=== PATIENT | male | born 1975 | race Caucasian/White ===

== ENCOUNTER 2020-05-24 09:57 | Emergency (ER) | payer OTHER, MEDICAID, SELFPAY ==
[2020-05-24 10:09] VITALS: BP 123/65; PULSE 90; RESP 18; TEMP 37.2; O2SAT 99; BMI 29.6
[2020-05-24] MEDS: levoFLOXacin 750 MG TABLET PO (11:08)
--- NOTE | 2020-05-24 11:13 | ED.SKABFB ---
HPI - Skin/Abscess/Foreign Bdy General Chief complaint: Skin/Abscess/Foreign Body Stated complaint: earache and sore throat Time Seen by Provider: 05/24/20 10:45 History of Present Illness HPI narrative: Patient complains of pain in the left ear and the left side of the face just in front of the ear for 24 hours, along with redness to the area, no fever no chills no injury Related Data Previous Rx's Medication Instructions Recorded ciprofloxacin-hydrocortisone 3 drp OTIC (EARS) Q12H 7 Days ml 05/24/20 [Cipro HC] ibuprofen 600 mg PO Q6H PRN #20 tab 05/24/20 levofloxacin 500 mg PO DAILY 7 Days #7 tab 05/24/20 oxycodone-acetaminophen [Percocet] 1 tab PO Q6H PRN #14 tab 05/24/20 Allergies Allergy/AdvReac Type Severity Reaction Status Date / Time No Known Allergies Allergy Unverified 02/22/20 17:28 [No Known Allergies*] Review of Systems Review of Systems: No fever no chills no headache no chest pain no shortness of breath no cough no other rash, no nausea no vomiting Yes all other systems are reviewed and are negative [facility] Past Medical History Attestation statement: The following information was validated with the patient. Source: nursing notes reviewed Medical History (Updated 05/25/20 @ 00:00 by Background Daemon) Diabetes HTN (hypertension) Social History Social History Alcohol intake: current Alcohol intake frequency: holidays/special occasions only Smoking Status: Never smoker Use of substances other than those prescribed or required for medical reasons: No Advance Directives: No Advance Directives Information Provided: Yes Physical Exam Vital Signs: Vital Signs: Last Vital Signs Temp 99 F 05/24/20 10:09 Pulse 90 05/24/20 10:09 Resp 18 05/24/20 10:09 BP 123/65 05/24/20 10:09 Pulse Ox 99 05/24/20 10:09 Body Mass Index 29.6 Patient is A&O x3, comfortable, no acute distress relaxed and cooperative The head is normocephalic atraumatic pupils equal round react flight extraocular motions intact the ear exam the right ear is normal with no redness or narrow Rossi or swelling of the canal and tympanic membrane is not red and is intact The left ear is red and tender to the touch, there is pain with movement of the auricle, the left ear exam the canal is narrowed and red and the visible portion of the tympanic membrane was normal, there was a preauricular lymph node, there was some mild redness in the preauricular area, the mastoid was not tender not swollen not red and the rest of the facial exam was normal, swallowing and breathing was normal there was no swelling of the neck no swelling under the tongue, the voice was normal The pharynx was clear and normal with no redness no swelling Chest was clear to auscultation bilaterally with full equal symmetric breath sounds Extremities full range of motion times for skin no rashes neuro no focal deficits Course Course Course Narrative: Case was discussed with attending physician who saw the patient and agreed that outpatient treatment for otitis externa and left ear cellulitis was appropriate and patient is given clear warnings to return should redness spreads develop a fever, increased pain any worse condition or concerns Discharge Plan Discharge Clinical Impression: Cellulitis Patient Disposition: Home, Self-Care Additional Instructions: You have an infection of the skin around her ear and the ear canal so we are treating with both drops and antibiotic Levaquin Return to ER in 2-3 days for recheck Return to ER any time for spreading redness, fever, worse pain and swelling, any worse condition or any concerns Prescriptions: New levofloxacin 500 mg tablet 500 mg PO DAILY 7 Days Qty: 7 RF: 0 Cipro HC 0.2-1 % drops,suspension 3 drp otic (ears) Q12H 7 Days RF: 0 ibuprofen 600 mg tablet 600 mg PO Q6H PRN (Reason: pain) Qty: 20 RF: 0 oxycodone-acetaminophen [Percocet] 5-325 mg tablet 1 tab PO Q6H PRN (Reason: pain) Qty: 14 RF: 0 Stand Alone Forms: Work/School Release Interventions: ED Discharge Assessment Last Done: 05/24/20 11:12 Discharge Date/Time: 05/24/20 11:14
== END 2020-05-24 11:14 | disposition home or self-care (01) ==
PROVIDERS: Emergency Provider Emergency Medicine Emergency Medical Services; PCP Family Medicine
DX: L03.211 Cellulitis of face (principal); H92.02 Otalgia, left ear; E11.9 Type 2 diabetes mellitus without complications; I10 Essential (primary) hypertension
CPT/HCPCS: 99283; 99284

== ENCOUNTER → 2020-09-24 15:05 | Outpatient (BNVA) | payer OTHER, SELFPAY | PROVIDERS: PCP Family Medicine; Visit Provider Urology ==

== ENCOUNTER 2020-12-16 20:48 | Emergency (ER) | payer OTHER, SELFPAY ==
--- NOTE | ~2020-12-16 | XR_ITS ---
EXAMINATION: PORTABLE CHEST 1 VIEW CLINICAL INFORMATION: cp . COMPARISON: 10/01/2019. TECHNIQUE: Portable frontal view of the chest was obtained. FINDINGS: The lungs are well expanded. No focal infiltrate, effusion, edema, or pneumothorax. Cardiac and mediastinal silhouettes are within normal limits for technique. No acute bony abnormality seen. XR/XR chest 1V IMPRESSION: No evidence of acute disease.
[2020-12-16 21:02] VITALS: BP 133/89; PULSE 96; RESP 17; TEMP 36.3; O2SAT 99; BMI 29.6
[2020-12-16 23:48] LABS: MANUAL DIFF FLAG NO
[2020-12-16 23:49] LABS: Basophils Percent Auto 0.5 % (0-2); Eosinophils Absolute Auto 0.1 X10*3/uL (0.0-0.4); Eosinophils Percent Auto 1.4 % (0-4); Hematocrit 43.5 % (42-52); Hemoglobin 14.8 g/dl (14.0-18.0); Imm Gran Abs Auto 0.01 X10*3/uL (0.00-0.03); Imm Gran Pct Auto 0.2 % (0.0-0.4); Lymphocytes Absolute Auto 1.2 X10*3/uL (1.2-4.9); Lymphocytes Percent Auto 21.6 % (20-40); Mean Corpuscular Hemoglobin 30.2 pg (27.0-33.0); Mean Corpuscular Volume 88.8 fL (80-98); Mean Platelet Volume 10.3 fL (9.4-12.4); Monocytes Absolute Auto 0.5 X10*3/uL (0.1-1.2); Monocytes Percent Auto 9.1 % (2-11); Neutrophils Absolute Auto 3.8 X10*3/uL (2.0-8.3); Neutrophils Percent Auto 67.2 % (45-73); Platelet Count 168 X10*3/uL (160-400); Red Cell Distribution Width 13.4 % (11.0-16.0); White Blood Count 5.7 X10*3/uL (4.8-10.8)
--- NOTE | 2020-12-17 00:10 | ED_ITS ---
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 At this time patient feels much better patient denied any chest pain no shortness of breath Related Data Previous Rx's Medication Instructions Recorded ciprofloxacin-hydrocortisone 3 drp OTIC (EARS) Q12H 7 Days ml 05/24/20 [Cipro HC] ibuprofen 600 mg PO Q6H PRN #20 tab 05/24/20 levofloxacin 500 mg PO DAILY 7 Days #7 tab 05/24/20 oxycodone-acetaminophen [Percocet] 1 tab PO Q6H PRN #14 tab 05/24/20 tadalafil 5 mg tablet 5 mg PO DAILY PRN 90 Days #90 tab 09/24/20 Allergies Allergy/AdvReac Type Severity Reaction Status Date / Time No Known Allergies Allergy Verified 12/16/20 21:02 [No Known Allergies*] Review of Systems Review of Systems: Yes all other systems are reviewed and are negative [facility] Past Medical History Medical History Diabetes HTN (hypertension) Social History Social History Alcohol intake: current Alcohol intake frequency: holidays/special occasions only Advance Directives: No Advance Directives Information Provided: No Physical Exam Vital Signs: Vital Signs: Last Vital Signs Temp 97.4 F 12/16/20 21:02 Pulse 96 12/16/20 21:02 Resp 17 12/16/20 21:02 BP 133/89 12/16/20 21:02 Pulse Ox 99 12/16/20 21:02 Body Mass Index 29.6 Appearance: Alert. Oriented X3. No acute distress. Eyes: PERRLA, No Nystagmus ENT: Pharynx normal. Oral Mucosa moist Neck: Normal inspection. Neck supple. CVS: Normal heart rate and rhythm. Pulses normal. Respiratory: No respiratory distress. Equal air entry bilateral, no wheezing/rales/rhonchi Abdomen: Soft and nontender. Bowel sounds are present, no mass palpable, no CVA tenderness Skin: Skin warm and dry. Normal skin color. Normal skin turgor. Extremities: No lower extremity edema. No calf tenderness Neuro: Oriented X 3. No motor deficit. No sensory deficit.No cerebellar signs , cranial nerves II-XII intact Medical Decision Making Lab Data Lab results reviewed: Yes I reviewed the patient's lab results. Result diagrams: 12/16/20 23:40 12/16/20 23:40 Labs: Lab Results 12/16/20 12/16/20 12/16/20 Range/Units 23:40 23:40 23:40 WBC 5.7 (4.8-10.8) X10*3/uL RBC 4.90 (4.60-5.80) X10*6/uL Hgb 14.8 (14.0-18.0) g/dl Hct 43.5 (42-52) % MCV 88.8 (80-98) fL MCH 30.2 (27.0-33.0) pg MCHC 34.0 (31.0-36.0) g/dl RDW 13.4 (11.0-16.0) % Plt Count 168 (160-400) X10*3/uL MPV 10.3 (9.4-12.4) fL Immature Gran % (Auto) 0.2 (0.0-0.4) % Neut % (Auto) 67.2 (45-73) % Lymph % (Auto) 21.6 (20-40) % [place] % (Auto) 9.1 (2-11) % Eos % (Auto) 1.4 (0-4) % Baso % (Auto) 0.5 (0-2) % Lymph # (Auto) 1.2 (1.2-4.9) X10*3/uL [place] # (Auto) 0.5 (0.1-1.2) X10*3/uL Eos # (Auto) 0.1 (0.0-0.4) X10*3/uL Baso # (Auto) 0.0 (0.0-0.2) X10*3/uL Abs Immat Gran (auto) 0.01 (0.00-0.03) X10*3/uL Absolute Neuts (auto) 3.8 (2.0-8.3) X10*3/uL Absolute Nucleated RBC 0.000 (0.0-0.012) X10*3/uL Nucleated RBC % (auto) 0.0 (0.0-0.2) /100WBC Sodium 142 (135-145) mmol/L Potassium 4.2 (3.3-5.1) mmol/L Chloride 105 (96-108) mmol/L Carbon Dioxide 28 (22-29) mmol/L Anion Gap 13 (12-20) BUN 9 (9-16) mg/dL Creatinine 0.85 (0.5-1.4) mg/dL Estim Creat Clear Calc 118.6 Estimated GFR > 60 Random Glucose 104 (60-115) mg/dL Calcium 9.5 (8.4-10.2) mg/dL Troponin I High Sens < 3.5 (<3.5-35.0) ng/L Discharge Plan Discharge Clinical Impression: Vasovagal episode Patient Disposition: Home, Self-Care Instructions: Near Syncope (ED) Additional Instructions: You likely had vasovagal attack Drink plenty of fluids check blood pressure daily Follow with PCP Care and cautions as advised Prescriptions: No Action levofloxacin 500 mg tablet 500 mg PO DAILY 7 Days Qty: 7 RF: 0 Cipro HC 0.2-1 % drops,suspension 3 drp otic (ears) Q12H 7 Days RF: 0 ibuprofen 600 mg tablet 600 mg PO Q6H PRN (Reason: pain) Qty: 20 RF: 0 oxycodone-acetaminophen [Percocet] 5-325 mg tablet 1 tab PO Q6H PRN (Reason: pain) Qty: 14 RF: 0 tadalafil 5 mg tablet 5 mg PO DAILY PRN (Reason: sexual activity) 90 Days Qty: 90 RF: 1 Interventions: ED Discharge Assessment Last Done: 12/17/20 00:35 Discharge Date/Time: 12/17/20 00:38
[2020-12-17 00:12] LABS: Troponin-I High Sensitivity < 3.5 ng/L (<3.5-35.0)
[2020-12-17 00:14] LABS: Anion Gap 13 (12-20); Blood Urea Nitrogen 9 mg/dL (9-16); Calcium 9.5 mg/dL (8.4-10.2); Carbon Dioxide 28 mmol/L (22-29); Chloride 105 mmol/L (96-108); Creatinine Clr Calc Pharmacy 118.6; Estimated Glomerular Filt Rate > 60; Glucose Random 104 mg/dL (60-115); Potassium 4.2 mmol/L (3.3-5.1); Sodium 142 mmol/L (135-145)
== END 2020-12-17 00:38 | disposition home or self-care (01) ==
PROVIDERS: Emergency Provider Internal Medicine; PCP Family Medicine
DX: R55 Syncope and collapse (principal); E11.9 Type 2 diabetes mellitus without complications; I10 Essential (primary) hypertension; Z79.899 Other long term (current) drug therapy
CPT/HCPCS: 36415; 71045; 80048; 84484; 85025; 99283

== ENCOUNTER 2021-02-24 11:14 | Emergency (ER) | payer OTHER, MEDICAID, SELFPAY ==
--- NOTE | 2021-02-24 | ECG_ITS ---
Test Reason : CHEST PAIN Blood Pressure : / mmHG Vent. Rate : 092 BPM Atrial Rate : 092 BPM P-R Int : 150 ms QRS Dur : 090 ms QT Int : 348 ms P-R-T Axes : 039 -14 043 degrees QTc Int : 430 ms Normal sinus rhythm Normal ECG When compared with ECG of 01-OCT-2019 15:05, No significant change was found Referred By: Generic ED Physician Electronically Signed By:MISTY GARNER
[2021-02-24 11:31] VITALS: BP 120/65; PULSE 94; RESP 18; TEMP 36.7; O2SAT 99; BMI 29.6
--- NOTE | 2021-02-24 11:51 | ED.CHESTPAIN ---
HPI - Chest Pain General Chief Complaint: Chest Pain Stated Complaint: chest pain Time Seen by Provider: 02/24/21 11:51 Source: patient Mode of arrival: ambulatory Limitations: no limitations History of Present Illness HPI narrative: This is a 45-year-old male coming from home with complaint of an episode of chest pain that occurred this morning after eating breakfast. He states he was eating a ham and harvey sandwich and then experience 1 episode of centralized, nonradiating, stabbing 10/10 chest pain. He also states that at the same time he started experiencing warmth throughout his whole body, nausea, and a little bit of itching. He states that this commonly happens to him everytime he eats. He denies shortness of breath, foreign body sensation in his throat, fevers, chills, vomiting, recent sick contacts, abdominal pain, changes in bowel habits, skin rashes. He has no known allergies. MD complaint: chest pain Onset (ago): hour(s) (2) Prior episodes: Yes Onset: after eating Pain location: substernal Pain radiation: none Severity: mild Quality: other (Stabbing) Related Data Previous Rx's Medication Instructions Recorded ciprofloxacin 0.2 %-hydrocortisone 3 drp OTIC (EARS) Q12H 7 Days ml 05/24/20 1 % ear drops,suspension (Cipro HC) ibuprofen 600 mg tablet 600 mg PO Q6H PRN #20 tab 05/24/20 levofloxacin 500 mg tablet 500 mg PO DAILY 7 Days #7 tab 05/24/20 oxycodone-acetaminophen 5 mg-325 1 tab PO Q6H PRN #14 tab 05/24/20 mg tablet (Percocet) tadalafil 5 mg tablet 5 mg PO DAILY PRN 90 Days #90 tab 09/24/20 omeprazole 20 mg capsule,delayed 20 mg PO DAILY 30 Days #30 cap 02/24/21 release Allergies Allergy/AdvReac Type Severity Reaction Status Date / Time No Known Allergies Allergy Verified 12/16/20 21:02 [No Known Allergies*] Review of Systems Constitutional: Constitutional: Reports no additional constitutional complaints and Denies anorexia Cardiovascular: Cardiovascular: Reports as per HPI and Reports chest pain Respiratory: Respiratory: Reports no additional respiratory complaints and Denies cough Gastrointestinal: Gastrointestinal: Reports no additional gastrointestinal complaints, Denies abdominal pain, Denies change in bowel habits and Reports nausea Musculoskeletal: Musculoskeletal: Reports no additional musculoskeletal complaints Allergic/Immunologic: Allergic/Immunologic: Reports other Comments: Body feels warm, and itchy PMFSH Past Medical History Attestation statement: The following information was validated with the patient. Source: old records reviewed Medical History Diabetes HTN (hypertension) Social History Social History Alcohol intake: current Alcohol intake frequency: a few times a week Patient Tobacco Use Status: Never used Tobacco Use of substances other than those prescribed or required for medical reasons: No Advance Directives: No Advance Directives Information Provided: No Physical Exam Vital Signs: Vital Signs: Last Vital Signs Temp 98.1 F 02/24/21 11:31 Pulse 87 02/24/21 12:51 Resp 118 H 02/24/21 12:51 BP 125/72 02/24/21 12:51 Pulse Ox 99 02/24/21 12:51 Body Mass Index 29.6 Const: General: cooperative and no acute distress Orientation/consciousness: oriented to person and oriented to place Limitations: no limitations HENMT: Head: Yes normal to inspection, Yes normocephalic and Yes atraumatic Ears: external ears normal General nose exam: Normal external nose present Face and sinus: Yes normal facial exam Mouth: Normal oral and palatal mucosa present Throat: Yes posterior oropharynx normal Eyes: General: appearance normal, both eyes and all related structures Pupils: Equal, round and reactive pupils present Neck: Neck: Yes normal visual inspection, Yes no lymphadenopathy, Yes trachea midline and Yes supple Chest: Chest palpation & inspection: normal inspection of the chest and normal palpation of entire chest wall Resp: Effort & Inspection: normal respiratory effort and able to speak in complete sentences Auscultation: clear to auscultation bilaterally Cardio: Rate: regular rate Rhythm: regular rhythm Heart sounds: S1 normal heart sound present, S2 normal heart sound present and no murmurs GI: Inspection: Yes normal to inspection Palpation (GI): Soft to palpation, Tenderness to palpation present (GI) in the epigastrum and no guarding Auscultation: normal bowel sounds : General: Yes no CVA tenderness Back/Spine/Pelvis: Back: no CVA tenderness Skin: General skin exam: no rashes or lesions noted Neuro: General: oriented to person and oriented to place Cranial nerves: Yes CN's II-XII intact bilaterally and Yes Equal, round and reactive pupils present Cognition (Neuro): normal cognition Motor exam (neuro): 5/5 motor strength present throughout Extrem: General: Yes normal to inspection Psych: Appearance: grossly normal Speech and movement: Normal speech and movement present Affect: normal affect Attitude: cooperative Thought process: Normal thought process present Thought content: Normal thought content present Course Course Course Narrative: This is a 45-year-old male who presents emergency department with chest discomfort which started after breakfast this morning. He states that recently, after receiving his COVID-19 vaccination he has been experiencing short episodes of chest pain that last a few seconds in duration. He states that the chest pain is centralized, nonradiating and always occurs after eating. Upon further questioning he also states that he has been feeling burning in his epigastric region that accompanies this chest pain. He also reports that his body feels warm and itchy, which started after breakfast also. Basic labs, EKG, continuous cardiac monitoring, and 1 troponin have been ordered He will be given benadryl Reevaluation(s) Reevaluation #1: Leukopenia noted (4.0) which appears to be patient's baseline, when compared to old laboratory studies. Reevaluation #2: Patient is laying comfortably in the bed. Feeling much better. At this time based officer laboratory studies, EKG and patient history is most likely not cardiac in origin, most likely GERD/acid reflux/ esophageal spasm. Patient feels well. Stable for discharge home, with follow-up with his PCP. Will be started on Prilosec 20 mg from a month The patient was given verbal and printed instructions prior to discharge. The patient was advised to follow-up with his PCP in 2 days and to return to the emergency department if his symptoms get worse or if he develops any new symptoms that are concerning to him. MDM - Chest Pain Lab Data Result diagrams: 02/24/21 12:27 02/24/21 12:27 Labs: Lab Results 02/24/21 02/24/21 02/24/21 Range/Units 12:27 12:27 12:27 WBC 4.0 L (4.8-10.8) X10*3/uL RBC 4.59 L (4.60-5.80) X10*6/uL Hgb 13.9 L (14.0-18.0) g/dl Hct 41.3 L (42-52) % MCV 90.0 (80-98) fL MCH 30.3 (27.0-33.0) pg MCHC 33.7 (31.0-36.0) g/dl RDW 13.4 (11.0-16.0) % Plt Count 152 L (160-400) X10*3/uL MPV 10.6 (9.4-12.4) fL Immature Gran % (Auto) 0.3 (0.0-0.4) % Neut % (Auto) 58.3 (45-73) % Lymph % (Auto) 25.5 (20-40) % [place] % (Auto) 11.1 H (2-11) % Eos % (Auto) 4.3 H (0-4) % Baso % (Auto) 0.5 (0-2) % Lymph # (Auto) 1.0 L (1.2-4.9) X10*3/uL [place] # (Auto) 0.4 (0.1-1.2) X10*3/uL Eos # (Auto) 0.2 (0.0-0.4) X10*3/uL Baso # (Auto) 0.0 (0.0-0.2) X10*3/uL Abs Immat Gran (auto) 0.01 (0.00-0.03) X10*3/uL Absolute Neuts (auto) 2.3 (2.0-8.3) X10*3/uL Absolute Nucleated RBC 0.000 (0.0-0.012) X10*3/uL Nucleated RBC % (auto) 0.0 (0.0-0.2) /100WBC Sodium 142 (135-145) mmol/L Potassium 4.5 (3.3-5.1) mmol/L Chloride 107 (96-108) mmol/L Carbon Dioxide 30 H (22-29) mmol/L Anion Gap 10 L (12-20) BUN 12 (9-16) mg/dL Creatinine 0.87 (0.5-1.4) mg/dL Estim Creat Clear Calc 115.8 Estimated GFR > 60 Random Glucose 109 (60-115) mg/dL Calcium 8.9 D (8.4-10.2) mg/dL Total Bilirubin 0.3 (0.0-1.0) mg/dL AST 21 (5-37) U/L ALT 39 (0-40) U/L Alkaline Phosphatase 65 (39-117) U/L Troponin I High Sens < 3.5 (<3.5-35.0) ng/L Total Protein 6.2 L (6.5-8.0) g/dL Albumin 4.0 (3.5-5.0) g/dL ECG Data ECG #1: Attestation: I personally reviewed and interpreted this ECG as follows: ECG interpretation date: 02/24/21 ECG interpretation time: 12:58 Prior ECG tracings: available for review Interpretation: Ventricular rate of 92 HI interval normal QRS duration normal QT/QTC normal normal sinus rhythm normal ECG normal when compared to EKG from October 01, 2019. No significant changes. No signs of acute ischemia. Discharge Plan Discharge Clinical Impression: Chest pain due to GERD, Esophageal spasm Patient Disposition: Home, Self-Care Instructions: Esophageal Spasm (ED) Additional Instructions: Follow-up with your PCP in two days Take all medications as prescribed Return to the emergency department new or worsening symptoms. Prescriptions: New omeprazole 20 mg capsule,delayed release(DR/EC) 20 mg PO DAILY 30 Days Qty: 30 RF: 0 No Action levofloxacin 500 mg tablet 500 mg PO DAILY 7 Days Qty: 7 RF: 0 Cipro HC 0.2-1 % drops,suspension 3 drp otic (ears) Q12H 7 Days RF: 0 ibuprofen 600 mg tablet 600 mg PO Q6H PRN (Reason: pain) Qty: 20 RF: 0 oxycodone-acetaminophen [Percocet] 5-325 mg tablet 1 tab PO Q6H PRN (Reason: pain) Qty: 14 RF: 0 tadalafil 5 mg tablet 5 mg PO DAILY PRN (Reason: sexual activity) 90 Days Qty: 90 RF: 1 Referrals: Jojo Jaramillo MD [Primary Care Provider] - 2 days
[2021-02-24 12:35] VITALS: PULSE 86
[2021-02-24 12:41] LABS: MANUAL DIFF FLAG NO
[2021-02-24 12:42] LABS: Basophils Percent Auto 0.5 % (0-2); Eosinophils Absolute Auto 0.2 X10*3/uL (0.0-0.4); Eosinophils Percent Auto 4.3 % (0-4); Hematocrit 41.3 % (42-52); Hemoglobin 13.9 g/dl (14.0-18.0); Imm Gran Abs Auto 0.01 X10*3/uL (0.00-0.03); Imm Gran Pct Auto 0.3 % (0.0-0.4); Lymphocytes Percent Auto 25.5 % (20-40); Mean Corpuscular HGB Conc 33.7 g/dl (31.0-36.0); Mean Corpuscular Hemoglobin 30.3 pg (27.0-33.0); Mean Platelet Volume 10.6 fL (9.4-12.4); Monocytes Absolute Auto 0.4 X10*3/uL (0.1-1.2); Monocytes Percent Auto 11.1 % (2-11); Neutrophils Absolute Auto 2.3 X10*3/uL (2.0-8.3); Neutrophils Percent Auto 58.3 % (45-73); Platelet Count 152 X10*3/uL (160-400); Red Blood Count 4.59 X10*6/uL (4.60-5.80); Red Cell Distribution Width 13.4 % (11.0-16.0)
[2021-02-24] MEDS: diphenhydrAMINE HCL 25 MG TABLET 50 MG PO (12:50)
[2021-02-24 12:51] VITALS: BP 125/72; PULSE 87; RESP 118; O2SAT 99
[2021-02-24 12:57] LABS: Alanine Aminotransferase 39 U/L (0-40); Alkaline Phosphatase 65 U/L (39-117); Anion Gap 10 (12-20); Aspartate Amino Transferase 21 U/L (5-37); Bilirubin Total 0.3 mg/dL (0.0-1.0); Blood Urea Nitrogen 12 mg/dL (9-16); Calcium 8.9 mg/dL (8.4-10.2); Carbon Dioxide 30 mmol/L (22-29); Chloride 107 mmol/L (96-108); Creatinine Clr Calc Pharmacy 115.8; Estimated Glomerular Filt Rate > 60; Glucose Random 109 mg/dL (60-115); Potassium 4.5 mmol/L (3.3-5.1); Sodium 142 mmol/L (135-145); Total Protein 6.2 g/dL (6.5-8.0)
[2021-02-24 13:14] LABS: Troponin-I High Sensitivity < 3.5 ng/L (<3.5-35.0)
== END 2021-02-24 14:11 | disposition home or self-care (01) ==
PROVIDERS: Emergency Provider Emergency Medicine Emergency Medical Services; PCP Family Medicine
DX: R07.9 Chest pain, unspecified (principal); K21.9 Gastro-esophageal reflux disease without esophagitis; R25.2 Cramp and spasm; Z79.899 Other long term (current) drug therapy
CPT/HCPCS: 36415; 80053; 84484; 85025; 93005; 99284; Q0163

== ENCOUNTER → 2021-03-04 12:57 | Outpatient (BNVA) | payer OTHER, SELFPAY | PROVIDERS: Visit Provider Urology ==

== ENCOUNTER → 2022-01-30 07:16 | Day surgery (SDC) | payer OTHER, MEDICAID, SELFPAY ==
[2022-01-30 07:36] VITALS: BMI 31.9
[2022-01-30 07:45] VITALS: BP 113/72; PULSE 81; RESP 17; TEMP 36.2; O2SAT 96
[2022-01-30] MEDS: Lactated Ringers 1,000 ML 100 ML IVCONT (08:02)
[2022-01-30 08:03] VITALS: BMI 31.9
[2022-01-30 08:11] LABS: Glucose, Whole Blood 144 mg/dL (60-115)
[2022-01-30] MEDS: Metoclopramide HCl 10 MG/2 ML VIAL IVPUSH (08:24)
--- NOTE | 2022-01-30 08:51 | PC.NURSE ---
pt on schedule suddenly developed panic attack stating it's taking too long, ready to go into endo room. dr. francisco and dr. rankin reaching toward iv to take out, offered med for anxiety. refusing and wants to leave. iv out dsd applied, called, mike cabrera with pt until jason present. ambulated asymptomatic. no oozing at dsd.
== END ==
PROVIDERS: PCP Family Medicine; Visit Provider Internal Medicine
DX: Z12.11 Encounter for screening for malignant neoplasm of colon (principal); Z53.20 Procedure and treatment not carried out because of patient's decision for unspecified reasons; F41.0 Panic disorder [episodic paroxysmal anxiety]; I10 Essential (primary) hypertension; E11.9 Type 2 diabetes mellitus without complications; Z79.899 Other long term (current) drug therapy
CPT/HCPCS: 82947; J2765

== ENCOUNTER 2022-03-03 06:13 | Day surgery (SDC) | payer OTHER, MEDICAID, SELFPAY ==
[2022-02-26 09:35] VITALS: BMI 32.2
--- NOTE | 2022-03-02 12:35 | HO.ANESPROP2 ---
Documented by User: Cesilia Reece NP 03/02/22 12:38 HPI - Anesthesia Eval Consult details Narrative: 46yo M for Colonoscopy Pt previous cx'd self DOS in preop area d/t anxiety PMFSH Active Problems Active Problems: All Active Problems (Updated 02/26/22 @ 09:35 by Susie Santos, DAGOBERTO) Erectile dysfunction due to arterial insufficiency (Acute) Past Medical History Medical History Diabetes Elevated cholesterol HTN (hypertension) Surgical History Surgical History (Updated 02/26/22 @ 09:40 by Susei Santos RN) Hx of anterior cruciate ligament surgery Hx of cystoscopy Social History Social History Alcohol intake: current Alcohol intake frequency: a few times a week Patient Tobacco Use Status: Never used Tobacco Use of substances other than those prescribed or required for medical reasons: No Advance Directives: No Advance Directives Information Provided: Yes Recently lost weight without trying: No Meds Allergies Allergy/AdvReac Type Severity Reaction Status Date / Time No Known Allergies Allergy Verified 12/16/20 21:02 [No Known Allergies*] Home Medications Medication Instructions Recorded Confirmed Last Taken Type lisinopril 20 mg tablet 20 mg PO DAILY 01/30/22 02/26/22 01/30/22 History atorvastatin 40 mg tablet 40 mg PO BEDTIME 02/26/22 02/26/22 Unknown History celecoxib 100 mg capsule 1 - 2 cap PO DAILY PRN severe pain 02/26/22 02/26/22 Unknown History cyclobenzaprine 5 mg tablet 1 tab PO DAILY PRN Muscle Spasm 02/26/22 02/26/22 Unknown History hydroxyzine pamoate 25 mg capsule 25 mg PO BEDTIME 02/26/22 02/26/22 Unknown History pyridoxine (vitamin B6) 100 mg 100 mg PO DAILY 02/26/22 02/26/22 Unknown History tablet (Vitamin B-6) Exam Exam Date and Time: March 02, 2022 1235 Height,Weight and Vital Signs: Height 5 ft 8 in Weight 96.162 kg Assessment and Plan Assessment Anesthesia Assessment: Chart Reviewed Documented by User: Deonte Aragon MD 03/03/22 07:26 COUNTS INCLUDE 234 BEDS AT THE [facility] Past Medical History Medical History Diabetes Elevated cholesterol HTN (hypertension) Family History Family history of problems with anesthesia: No Surgical History Surgical History (Updated 02/26/22 @ 09:40 by Susie Santos RN) Hx of anterior cruciate ligament surgery Hx of cystoscopy History of Problems with Anesthesia: No Social History Social History Alcohol intake: current Alcohol intake frequency: a few times a week Patient Tobacco Use Status: Never used Tobacco Use of substances other than those prescribed or required for medical reasons: No Advance Directives: No Advance Directives Information Provided: Yes Recently lost weight without trying: No Meds Allergies Allergy/AdvReac Type Severity Reaction Status Date / Time No Known Allergies Allergy Verified 12/16/20 21:02 [No Known Allergies*] Home Medications Medication Instructions Recorded Confirmed Last Taken Type lisinopril 20 mg tablet 20 mg PO DAILY 01/30/22 02/26/22 01/30/22 History atorvastatin 40 mg tablet 40 mg PO BEDTIME 02/26/22 02/26/22 Unknown History celecoxib 100 mg capsule 1 - 2 cap PO DAILY PRN severe pain 02/26/22 02/26/22 Unknown History cyclobenzaprine 5 mg tablet 1 tab PO DAILY PRN Muscle Spasm 02/26/22 02/26/22 Unknown History hydroxyzine pamoate 25 mg capsule 25 mg PO BEDTIME 02/26/22 02/26/22 Unknown History pyridoxine (vitamin B6) 100 mg 100 mg PO DAILY 02/26/22 02/26/22 Unknown History tablet (Vitamin B-6) Exam Airway Mallampati Class: III TM Dist: >3cm Neck ROM: Full Partial: Upper Heart: rrr Lungs: clear Assessment and Plan Final Anesthetic Review Family History of Problems with Anesthesia: No History of Problems with Anesthesia: No NPO: Yes ASA Class: II Final Preanesthetic Review: No Changes in Pt Med Stat, Meds/Allgs Chart Reviewed, Consent Obtained/Reviewed and Anes Risks/Benef Reviewed Patient Risk: Intermediate Procedure Risk: Low Anesthetic Plan Anesthetic Plan: MAC: Disposition: Standard PACU
[2022-03-03 06:33] VITALS: BP 114/73; PULSE 75; RESP 16; TEMP 36.6; O2SAT 98; BMI 32.6
[2022-03-03] MEDS: Lactated Ringers 1,000 ML 100 ML IVCONT (06:49)
[2022-03-03 08:17] VITALS: BP 122/69; PULSE 82; TEMP 37.2; O2SAT 97
--- NOTE | 2022-03-03 08:22 | PM.OP ---
Brief Operative Note Date of Service: 03/03/22 Pre-op diagnosis: Screening Post-op diagnosis: other (Colon polyp) Procedure: Colonoscopy to the cecum and TI with hot snare polypectomy Surgeon: Tremayne Pandey Anesthesia: MAC Was an [employer] Excavation Operator used for this Procedure?: No Estimated blood loss (mL): 0 Pathology: other (A. Polyp at 20cm) Condition: stable Disposition: PACU
[2022-03-03 08:32] VITALS: BP 107/69; PULSE 28; TEMP 37.2; O2SAT 98
--- NOTE | 2022-03-03 10:39 | OP_ITS ---
SURGEON: Tremayne Pandey MD INDICATIONS: The patient presents for evaluation of colorectal cancer screening. Full consent has been obtained from him for this, including risks of bleeding and perforation. PREOPERATIVE DIAGNOSIS: Colorectal cancer screening. POSTOPERATIVE DIAGNOSIS: PROCEDURE PERFORMED: Colonoscopy to cecum and terminal ileum with hot snare polypectomy. ESTIMATED BLOOD LOSS: COMPLICATIONS: ANESTHESIA: Monitored anesthesia care. ASSISTANTS: SPECIMENS: POSTOPERATIVE DIAGNOSES: Colorectal cancer screening, colon polyp, and small internal hemorrhoids. DESCRIPTION OF PROCEDURE: The patient was placed in the left lateral decubitus position. The digital rectal exam revealed no abnormalities. The Olympus video pediatric colonoscope was entered into the rectum and advanced easily to the cecum. Once in the cecum, I did identify normal-appearing cecal pouch with appendiceal orifice and a normal-appearing ileocecal valve. The terminal ileum was cannulated and appeared normal. The scope was withdrawn back into the colon. The entire cecum and ileocecal valve appeared normal. The scope was slowly withdrawn assessing all mucosal surfaces carefully. Preparation was excellent. At 20 cm, there was an approximately 6 to 8 mm polyp, which was removed by hot snare polypectomy and recovered by suction. The polypectomy site appeared clean, without any sign of residual polyp nor bleeding. I did not visualize any other polyps, colitis, or angiodysplasia. In the rectum, scope was retroflexed visualizing some minimal internal hemorrhoids, but no other pathology. The rectal mucosa appeared normal. The scope was straightened out and withdrawn from the patient. He tolerated the procedure well and was returned to the recovery area in stable condition. IMPRESSION: 1. Small colon polyp, status post hot snare polypectomy. 2. Internal hemorrhoids. PLAN: The results of the pathology will be checked. If it is adenomatous I would recommend a repeat colonoscopy in 5 years for further surveillance. He was advised not to use any aspirin or NSAIDs for 1 week. MD HAI Valencia/BRAYDEN / [id number] JULITO
== END 2022-03-03 09:33 | disposition home or self-care (01) ==
PROVIDERS: PCP Family Medicine; Visit Provider Internal Medicine
PROC: 0DJD8ZZ Inspection of Lower Intestinal Tract, Via Natural or Artificial Opening Endoscopic (ICD-10-PCS; CPT 45378; principal; 2022-03-03 07:30)
DX: Z12.11 Encounter for screening for malignant neoplasm of colon (principal); K63.5 Polyp of colon; K64.8 Other hemorrhoids; E11.9 Type 2 diabetes mellitus without complications; I10 Essential (primary) hypertension; E78.5 Hyperlipidemia, unspecified; F41.1 Generalized anxiety disorder; Z79.899 Other long term (current) drug therapy
CPT/HCPCS: 45385; 88305

== ENCOUNTER 2022-03-15 18:45 | Emergency (ER) | payer OTHER, MEDICAID, SELFPAY ==
[2022-03-15 18:49] VITALS: BP 144/83; PULSE 92; RESP 20; TEMP 36; O2SAT 96; BMI 33.4
[2022-03-15 19:08] LABS: MANUAL DIFF FLAG NO
[2022-03-15 19:17] LABS: VBG Base Excess -0.8 mmol/L; VBG HCO3 22 mmol/L (22-26); VBG pCO2 34 mmHg; VBG pH 7.42 (7.32-7.43); VBG pO2 97 mmHg
[2022-03-15 19:17] LABS: Venous Blood Gas Refer to POC result
[2022-03-15 19:22] LABS: Basophils Percent Auto 0.7 % (0-2); Eosinophils Absolute Auto 0.1 X10*3/uL (0.0-0.4); Eosinophils Percent Auto 2.8 % (0-4); Hematocrit 43.5 % (42.0-52.0); Hemoglobin 14.7 g/dl (14.0-18.0); Imm Gran Abs Auto 0.01 X10*3/uL (0.00-0.03); Imm Gran Pct Auto 0.2 % (0.0-0.4); Lymphocytes Absolute Auto 0.9 X10*3/uL (1.2-4.9); Lymphocytes Percent Auto 20.4 % (20-40); Mean Corpuscular HGB Conc 33.8 g/dl (31.0-36.0); Mean Corpuscular Hemoglobin 29.2 pg (27.0-33.0); Mean Corpuscular Volume 86.3 fL (80.0-98.0); Mean Platelet Volume 10.7 fL (9.4-12.4); Monocytes Absolute Auto 0.5 X10*3/uL (0.1-1.2); Monocytes Percent Auto 11.2 % (2-11); Neutrophils Percent Auto 64.7 % (45-73); Platelet Count 159 X10*3/uL (160-400); Red Blood Count 5.04 X10*6/uL (4.60-5.80); Red Cell Distribution Width 12.8 % (11.0-16.0); White Blood Count 4.6 X10*3/uL (4.8-10.8)
[2022-03-15 19:31] LABS: Alanine Aminotransferase 52 U/L (0-40); Albumin Level 4.2 g/dL (3.5-5.0); Alkaline Phosphatase 60 U/L (39-117); Anion Gap 17 (12-20); Aspartate Amino Transferase 35 U/L (5-37); Bilirubin Total 0.5 mg/dL (0.0-1.0); Blood Urea Nitrogen 16 mg/dL (9-16); Calcium 9.1 mg/dL (8.4-10.2); Carbon Dioxide 20 mmol/L (22-29); Chloride 105 mmol/L (96-108); Creatinine Clr Calc Pharmacy 108.9; Estimated Glomerular Filt Rate > 60; Glucose Random 191 mg/dL (60-115); Potassium 4.5 mmol/L (3.3-5.1); Sodium 137 mmol/L (135-145); Total Protein 7.2 g/dL (6.5-8.0)
[2022-03-15 19:52] LABS: Acetone, serum QL Negative (Negative)
[2022-03-15 23:56] VITALS: BP 116/78; PULSE 76; RESP 18; TEMP 36.6; O2SAT 97
[2022-03-16 00:02] VITALS: BP 119/78; PULSE 80
--- NOTE | 2022-03-16 00:02 | ECG_ITS ---
Test Reason : DIZZINESS Blood Pressure : / mmHG Vent. Rate : 066 BPM Atrial Rate : 066 BPM P-R Int : 152 ms QRS Dur : 102 ms QT Int : 406 ms P-R-T Axes : 042 -16 019 degrees QTc Int : 425 ms Normal sinus rhythm Minimal voltage criteria for LVH, may be normal variant ( R in aVL ) Intra-ventricular conduction delay Borderline ECG When compared with ECG of 24-FEB-2021 11:22, Heart rate has decreased Referred By: Liza Dalton Electronically Signed By:EHSAN BILL MD
[2022-03-16 00:03] VITALS: BP 121/71; PULSE 68
--- OUTSIDE RECORDS SUMMARY | 2022-03-16 00:10 | XMS_ITS ---
:1975 Demographics Address [address] [place] [address] Preferred Language Norwegian Marital Status Unknown Nondenominational Affiliation Unknown Race or [place] Na t[employer] Ethnic Group or Author Organization [facility] Address [address] [place] [address] Support Name Relationship Address Phone MATT SOL Unavailable [address] [phone] [place] [address] MAE BECERRA Unavailable Unavailable [phone] Care Team Providers Name Role Phone Tremayne Pandey Unavailable Unavailable PROBLEMS Type Condition ICD9-CM Code QSE05-SV Code Onset Condition SNO MED Code Dates Status Problem Encounter for Z01.818 Active 302048 001 other preprocedural examination Problem Encounter for Z12.11 Active [id number] screening for malignant neoplasm of colon ALLERGIES No Known Allergies ENCOUNTERS Encounter Location Date Diagnosis [facility] Outpatient [address] [facility] Feb, [place] [id number] [address] Jan, [facility] [address] [place] [address] Nov, [facility] [address] [place] [address] Nov, Encounte r for screening [facility] [address] [place], [place] [address] colon Z12.11 and Encounter for other prepro cedural examination Z01. 818 IMMUNIZATIONS Vaccine Route Administration Date Status Influenza Unknown Feb 05, 2021 Administered SOCIAL HISTORY Qualifiers Date Never Smoker REASON FOR REFERRAL FUNCTIONAL STATUS PLAN OF CARE Activity Details Pending Test Pathology Future/Pending Procedure COLONOSCOPY 20211203 VITAL SIGNS Weight 212 lbs 2021-12-03 Height 68 in 2021-12-03 BMI 32.23 kg/m2 2021-12-03 Temperature 97.7 degrees Fahrenheit 2021-12-03 MEDICATIONS Medication Instructions Dosage Frequency Start End Duration Statu s Date Date Triamcinolone 14 Active Acetonide 0.1 % MiraLax (colon Orally begin at 1 238 Gm Nov, 1 day Active prep) 17 GM/SCOOP 5:00 p.m. the bottle 2021 before the mixed with procedure Gatorade or Crystal Light Cyclobenzaprine 30 Active HCl 5 MG Escitalopram TAKE 1 30 Not-Taki Oxalate 10 MG TABLET BY ng MOUTH EVERY DAY Atorvastatin Orally Once a 1 tablet 24h 30 day(s) Ac tive Calcium 40 MG day Omeprazole 20 MG 30 Not-Brian i ng Celecoxib 100 MG 30 Active Dulcolax (colon Orally two take at Nov, 1 day Activ e prep) 5 MG tablets twice a 3:00 p.m 2021 day for one day and 7:00p.m. Vitamin B6 100 MG Orally Once a 1 tablet 24h 30 day( s) Active day Mometasone Furoate APPLY A 30 Activ e 0.1 % THIN LAYER TO AFFECTED AREA(S) EVERY DAY DIRECTED Lisinopril 10 MG 30 Active hydrOXYzine HCl 25 Orally Once a 1 tablet at 24h 30 day(s) Active MG day bedtime as needed PROCEDURES Procedure Date Ordered Result Body Site BP SCR NOT PRFRM REC REASON NOS December 03, 2021 TOBACCO NON-USER December 03, 2021 DOC MEDS VERIFIED W/PT OR RE December 03, 2021 RESULTS Name Result Date Reference Range Glucose, Whole Blood 2022-01-30 Glucose, Whole Blood 144 60-115 REASON FOR VISIT screening, screening, bowel prep, Patient presents today for a SCREENING COLON Insurance Providers [facility] Member Patient Patient Patient Patient Patient Subscriber Subscriber Subscriber Group Insurance Plan Plan Plan Plan ID Relationship Address Phone Name Date of ID Name Date of No Type Insurance Insurance Insurance Coverage to Subscriber Address Phone Name Dates HEALTH NEW ONE [phone] HEALTH NEW self MATT [id number] ANNALISA MONARCH [address] [facility] [address] MEDICAID [id number] MEDICAID self MATT 6 [id number] OF [place] [id number] [place] [address] [facility] [address]
--- NOTE | 2022-03-16 00:11 | ED_ITS ---
HPI - General Adult General Chief complaint: Recheck/Abnormal Lab/Rx Stated complaint: blood sugar high Time Seen by Provider: 03/15/22 23:58 Source: patient Mode of arrival: ambulatory Limitations: no limitations History of Present Illness HPI narrative: Patient comes to the emergency room complaining that when he eats he gets lightheaded, needs to lower himself to the ground to avoid passing out. Patient states it has been going on for several days. Patient stop taking metformin because he lost weight and his PCP asked him not to take metformin anymore. Patient states that he has been checking his blood sugars and it has been above 200 every time he checks it. Patient denies chest pain or shortness of breath, no nausea vomiting or diarrhea. Related Data Home Medications Medication Instructions Recorded Confirmed lisinopril 20 mg tablet 20 mg PO DAILY 01/30/22 02/26/22 atorvastatin 40 mg tablet 40 mg PO BEDTIME 02/26/22 02/26/22 celecoxib 100 mg capsule 1 - 2 cap PO DAILY PRN severe pain 02/26/22 02/26/22 cyclobenzaprine 5 mg tablet 1 tab PO DAILY PRN Muscle Spasm 02/26/22 02/26/22 hydroxyzine pamoate 25 mg capsule 25 mg PO BEDTIME 02/26/22 02/26/22 pyridoxine (vitamin B6) 100 mg 100 mg PO DAILY 02/26/22 02/26/22 tablet (Vitamin B-6) Previous Rx's Medication Instructions Recorded tadalafil 5 mg tablet 5 mg PO DAILY PRN sexual activity 03/04/21 90 days #90 tabs metformin 500 mg tablet,extended 500 mg PO DAILY #30 tabs 03/16/22 release 24 hr Allergies Allergy/AdvReac Type Severity Reaction Status Date / Time No Known Allergies Allergy Verified 12/16/20 21:02 [No Known Allergies*] Review of Systems Review of Systems: Constitutional : No Weight loss, No Fever, No Chills, no fatigue or generalized malaise ENT/Mouth : No Hearing loss, No Ear Pain, No Nasal Congestion, No Sinus Pain, No Hoarseness, No sore throat, No Rhinorrhea, No Swallowing Difficulty Eyes: No Eye Pain, No Swelling, No Redness, No Foreign Body, No Discharge, No Vision Changes Cardiovascular : No Chest Pain, No SOB, No Dyspnea on Exertion, No Orthopnea, No Edema, No Palpitations Respiratory : No Cough, No Sputum, No Wheezing, No Smoke Exposure, No Dyspnea Gastrointestinal : No Nausea, No Vomiting, No Diarrhea, No Constipation, No abdominal Pain, No Hematochezia, No Melena Genitourinary : no irregular bleeding, No Dysuria, No Urinary Frequency, No Hematuria, No Urinary Incontinence, No Urgency, No Flank Pain, No Urinary Flow Changes, No Hesitancy Musculoskeletal : No joint pain, No Myalgias, No Joint Swelling Skin : No Skin Lesions, No rash Neuro : No Weakness, No Numbness, No Paresthesias, No Loss of Consciousness, no headache, complaining of lightheadedness after eating Psych : No Anxiety/Panic, No Depression, No SI/HI/AH/VH, No Social Issues, Heme/Lymph: No Bruising, No Bleeding,No Lymphadenopathy Endocrine : No Polyuria, No Polydipsia, No Temperature Intolerance PMFSH Past Medical History Medical History Diabetes Elevated cholesterol HTN (hypertension) Surgical History Hx of anterior cruciate ligament surgery Hx of cystoscopy Social History Social History Alcohol intake: current Alcohol intake frequency: a few times a week Patient Tobacco Use Status: Never used Tobacco Advance Directives: No Advance Directives Information Provided: No Physical Exam ED Vital Signs: Vital Signs - 24 hr 03/15/22 18:49 03/15/22 23:56 03/16/22 00:20 Temperature 96.8 F 97.9 F Pulse Rate 92 76 80 Respiratory Rate 20 18 16 Blood Pressure 144/83 H 116/78 119/78 Pulse Oximetry 96 97 95 Oxygen Delivery Method Room Air Room Air Room Air 03/16/22 00:20 03/16/22 00:03 03/16/22 00:02 Temperature Pulse Rate 72 68 80 Respiratory Rate Blood Pressure 124/69 121/71 119/78 Pulse Oximetry Oxygen Delivery Method BMI result Body Mass Index 33.4 Const Other: Appearance: Alert. Oriented X3. No acute distress. Eyes: Pupils equal, round and reactive to light. ENT: Pharynx normal. Neck: Normal inspection. Neck supple. No lymph nodes noted. No crepitus CVS: Normal heart rate and rhythm. Pulses normal. Normal S1 and S2 Respiratory: No respiratory distress. Breath sounds normal. No Wheezing. No rales Abdomen: Soft and nontender. No rigidity. No distention. Skin: Skin warm and dry. Normal skin color. Normal skin turgor. Extremities: No lower extremity edema. No Lacerations. No Rash Neuro: Oriented X 3. No motor deficit. No sensory deficit. Moving all extremities. No slurred speech. CN 2 through 12 grossly intact Psych: calm, cooperative, normal affect Course Course Course Narrative: Although patient has not had any abdominal surgery, patient has dumping syndrome like symptoms Patient's labs are unremarkable, blood sugar a bit elevated, 191 EKGs normal, t roponin is negative. Orthostatic vitals are negative. Patient instructed to eat more smaller frequent meals. If this does not work. Patient may need to have a follow-up with Cardiology, have a stress test and or a Holter monitor Medical Decision Making Lab Data Result diagrams: 03/15/22 19:02 03/15/22 19:02 Labs: Lab Results 03/15/22 03/15/22 03/15/22 Range/Units 19:02 19:02 19:02 WBC 4.6 L (4.8-10.8) X10*3/uL RBC 5.04 (4.60-5.80) X10*6/uL Hgb 14.7 (14.0-18.0) g/dl Hct 43.5 (42.0-52.0) % MCV 86.3 (80.0-98.0) fL MCH 29.2 (27.0-33.0) pg MCHC 33.8 (31.0-36.0) g/dl RDW 12.8 (11.0-16.0) % Plt Count 159 L (160-400) X10*3/uL MPV 10.7 (9.4-12.4) fL Immature Gran % (Auto) 0.2 (0.0-0.4) % Neut % (Auto) 64.7 (45-73) % Lymph % (Auto) 20.4 (20-40) % [place] % (Auto) 11.2 H (2-11) % Eos % (Auto) 2.8 (0-4) % Baso % (Auto) 0.7 (0-2) % Lymph # (Auto) 0.9 L (1.2-4.9) X10*3/uL [place] # (Auto) 0.5 (0.1-1.2) X10*3/uL Eos # (Auto) 0.1 (0.0-0.4) X10*3/uL Baso # (Auto) 0.0 (0.0-0.2) X10*3/uL Abs Immat Gran (auto) 0.01 (0.00-0.03) X10*3/uL Absolute Neuts (auto) 3.0 (2.0-8.3) x10*3/uL Absolute Nucleated RBC 0.000 (0.0-0.012) X10*3/uL Nucleated RBC % (auto) 0.0 (0.0-0.2) /100WBC VBG pH (7.32-7.43) VBG pCO2 mmHg VBG pO2 mmHg VBG HCO3 (22-26) mmol/L VBG O2 Saturation % VBG Base Excess mmol/L Sodium 137 (135-145) mmol/L Potassium 4.5 (3.3-5.1) mmol/L Chloride 105 (96-108) mmol/L Carbon Dioxide 20 L (22-29) mmol/L Anion Gap 17 (12-20) BUN 16 (9-16) mg/dL Creatinine 0.97 (0.5-1.4) mg/dL Estim Creat Clear Calc 108.9 Estimated GFR > 60 Random Glucose 191 H D (60-115) mg/dL Calcium 9.1 (8.4-10.2) mg/dL Total Bilirubin 0.5 (0.0-1.0) mg/dL AST 35 D (5-37) U/L ALT 52 H (0-40) U/L Alkaline Phosphatase 60 (39-117) U/L Troponin I High Sens (<3.5-35.0) ng/L Total Protein 7.2 (6.5-8.0) g/dL Albumin 4.2 (3.5-5.0) g/dL Acetone, Qual Negative (Negative) 03/15/22 03/16/22 Range/Units 19:11 19:02 WBC (4.8-10.8) X10*3/uL RBC (4.60-5.80) X10*6/uL Hgb (14.0-18.0) g/dl Hct (42.0-52.0) % MCV (80.0-98.0) fL MCH (27.0-33.0) pg MCHC (31.0-36.0) g/dl RDW (11.0-16.0) % Plt Count (160-400) X10*3/uL MPV (9.4-12.4) fL Immature Gran % (Auto) (0.0-0.4) % Neut % (Auto) (45-73) % Lymph % (Auto) (20-40) % [place] % (Auto) (2-11) % Eos % (Auto) (0-4) % Baso % (Auto) (0-2) % Lymph # (Auto) (1.2-4.9) X10*3/uL [place] # (Auto) (0.1-1.2) X10*3/uL Eos # (Auto) (0.0-0.4) X10*3/uL Baso # (Auto) (0.0-0.2) X10*3/uL Abs Immat Gran (auto) (0.00-0.03) X10*3/uL Absolute Neuts (auto) (2.0-8.3) x10*3/uL Absolute Nucleated RBC (0.0-0.012) X10*3/uL Nucleated RBC % (auto) (0.0-0.2) /100WBC VBG pH 7.42 (7.32-7.43) VBG pCO2 34 mmHg VBG pO2 97 mmHg VBG HCO3 22 (22-26) mmol/L VBG O2 Saturation 99.0 % VBG Base Excess -0.8 mmol/L Sodium (135-145) mmol/L Potassium (3.3-5.1) mmol/L Chloride (96-108) mmol/L Carbon Dioxide (22-29) mmol/L Anion Gap (12-20) BUN (9-16) mg/dL Creatinine (0.5-1.4) mg/dL Estim Creat Clear Calc Estimated GFR Random Glucose (60-115) mg/dL Calcium (8.4-10.2) mg/dL Total Bilirubin (0.0-1.0) mg/dL AST (5-37) U/L ALT (0-40) U/L Alkaline Phosphatase (39-117) U/L Troponin I High Sens < 3.5 (<3.5-35.0) ng/L Total Protein (6.5-8.0) g/dL Albumin (3.5-5.0) g/dL Acetone, Qual (Negative) Discharge Plan Discharge Clinical Impression: Near syncope Patient Disposition: Home, Self-Care Instructions: Near Syncope (ED) Additional Instructions: Please eat more frequent small meals. Please follow-up with your primary care physician tomorrow. If you have any worsening or new symptoms, please return to the emergency room or call 911 Prescriptions: New metformin 500 mg tablet extended release 24 hr 500 mg PO DAILY Qty: 30 1RF No Action lisinopril 20 mg tablet 20 mg PO DAILY atorvastatin 40 mg Tablet 40 mg PO BEDTIME pyridoxine (vitamin B6) [Vitamin B-6] 100 mg Tablet 100 mg PO DAILY celecoxib 100 mg capsule 1 - 2 cap PO DAILY PRN (Reason: severe pain) hydroxyzine pamoate 25 mg Capsule 25 mg PO BEDTIME cyclobenzaprine 5 mg tablet 1 tab PO DAILY PRN (Reason: Muscle Spasm) tadalafil 5 mg tablet 5 mg PO DAILY PRN (Reason: sexual activity) 90 Days Qty: 90 1RF
[2022-03-16 00:20] VITALS: BP 119/78; BP 124/69; PULSE 72; PULSE 80; RESP 16; O2SAT 95
[2022-03-16 00:37] LABS: Troponin-I High Sensitivity < 3.5 ng/L (<3.5-35.0)
[2022-03-16 01:29] VITALS: BP 119/67; PULSE 68; RESP 16; TEMP 36.8; O2SAT 96
== END 2022-03-16 01:34 | disposition home or self-care (01) ==
PROVIDERS: Emergency Provider Emergency Medicine; PCP Family Medicine
DX: R55 Syncope and collapse (principal); E11.9 Type 2 diabetes mellitus without complications; I10 Essential (primary) hypertension; E78.5 Hyperlipidemia, unspecified; Z79.899 Other long term (current) drug therapy; Z79.02 Long term (current) use of antithrombotics/antiplatelets
CPT/HCPCS: 36415; 80053; 82009; 82803; 84484; 85025; 93005; 99283; 99284

== ENCOUNTER 2022-07-07 08:26 | Outpatient (REF) | payer OTHER, MEDICAID, SELFPAY ==
--- NOTE | ~2022-07-07 | US_ITS ---
EXAMINATION: US ABDOMEN COMPLETE CLINICAL INFORMATION: Right upper quadrant pain. COMPARISON: Renal ultrasound 08/28/2019 and 02/27/2019. CT abdomen and pelvis 12/15/2018. TECHNIQUE: Real-time imaging of the abdominal viscera. FINDINGS: PANCREAS: Normal. ABDOMINAL AORTA: The proximal, mid, and distal segments are normal in caliber. INFERIOR VENA CAVA: Visualized portions are normal. LIVER: The liver is normal in size. The liver contour is normal. Parenchymal echogenicity is normal. A small benign, calcified granuloma is seen within the right hepatic lobe, consistent with prior CT findings (2:15). There is no intrahepatic biliary duct dilatation seen. GALLBLADDER: Normal. The gallbladder is physiologically distended without evidence of stones, sludge, polyps, wall thickening or pericholecystic fluid. COMMON BILE DUCT: Normal in caliber measuring 0.2 cm in diameter. RIGHT KIDNEY: Normal. No hydronephrosis. No renal calculi or focal parenchymal lesions. The kidney measures 11.1 cm in maximum dimension. LEFT KIDNEY: Normal. No hydronephrosis. No renal calculi or focal parenchymal lesions. The kidney measures 11.5 cm in maximum dimension. SPLEEN: Normal. The spleen measures 12.8 cm in maximum dimension. FREE FLUID: None. US/US abdomen complete IMPRESSION: Unremarkable examination.
== END 2022-07-07 08:27 | disposition home or self-care (01) ==
LOC: HO.US 08:26
PROVIDERS: PCP Family Medicine; Visit Provider Internal Medicine
DX: R10.13 Epigastric pain (principal); R10.11 Right upper quadrant pain
CPT/HCPCS: 76700

== ENCOUNTER 2022-07-20 10:25 | Day surgery (SDC) | payer OTHER, MEDICAID, SELFPAY ==
--- NOTE | 2022-07-20 10:31 | HO.ANESPROP2 ---
HPI - Anesthesia Eval Consult details Narrative: egd PMFSH Active Problems Active Problems: All Active Problems (Updated 07/17/22 @ 12:33 by Cuca Amor RN) Erectile dysfunction due to arterial insufficiency (Acute) Past Medical History Medical History (Updated 07/17/22 @ 12:33 by Cuca Amor RN) Anxiety Back pain Diabetes Elevated cholesterol HTN (hypertension) Family History Family history of problems with anesthesia: No Surgical History Surgical History (Updated 07/17/22 @ 12:32 by Cuca Amor RN) H/O colonoscopy Hx of anterior cruciate ligament surgery Hx of cystoscopy History of Problems with Anesthesia: No Social History Social History Alcohol intake: current Alcohol intake frequency: a few times a week Patient Tobacco Use Status: Never used Tobacco Advance Directives: No Advance Directives Information Provided: Yes Meds Allergies Allergy/AdvReac Type Severity Reaction Status Date / Time No Known Allergies Allergy Verified 12/16/20 21:02 [No Known Allergies*] Home Medications Medication Instructions Recorded Confirmed Last Taken Type lisinopril 20 mg tablet 20 mg PO DAILY 01/30/22 02/26/22 01/30/22 History atorvastatin 40 mg tablet 40 mg PO BEDTIME 02/26/22 02/26/22 Unknown History celecoxib 100 mg capsule 1 - 2 cap PO DAILY PRN severe pain 02/26/22 02/26/22 Unknown History cyclobenzaprine 5 mg tablet 1 tab PO DAILY PRN Muscle Spasm 02/26/22 02/26/22 Unknown History hydroxyzine pamoate 25 mg capsule 25 mg PO BEDTIME 02/26/22 02/26/22 Unknown History pyridoxine (vitamin B6) 100 mg 100 mg PO DAILY 02/26/22 02/26/22 Unknown History tablet (Vitamin B-6) Exam Exam Date and Time: July 20, 2022 1031 Airway TM Dist: >3cm Neck ROM: Full Heart: rrr Lungs: cta Assessment and Plan Assessment Anesthesia Assessment: Anesthesia Plan Discussed and Chart Reviewed Final Anesthetic Review Family History of Problems with Anesthesia: No History of Problems with Anesthesia: No NPO: Yes ASA Class: III Final Preanesthetic Review: No Changes in Pt Med Stat, Meds/Allgs Chart Reviewed, Consent Obtained/Reviewed and Anes Risks/Benef Reviewed Patient Risk: Intermediate Procedure Risk: Low Anesthetic Plan Anesthetic Plan: MAC: Disposition: Standard PACU
[2022-07-20 10:43] VITALS: BMI 34.4
[2022-07-20 10:50] VITALS: BP 118/74; PULSE 78; RESP 18; TEMP 36.8; O2SAT 99
[2022-07-20 11:01] LABS: Glucose, Whole Blood 129 mg/dL (60-115)
[2022-07-20 11:32] VITALS: BP 130/82; PULSE 88; RESP 16; TEMP 37.3; O2SAT 95
--- NOTE | 2022-07-20 11:34 | PM.OP ---
Brief Operative Note Date of Service: 07/20/22 Pre-op diagnosis: GERD, Abdominal pain Post-op diagnosis: other (Gastritis, Hiatal hernia) Procedure: EGD with biopsies Surgeon: Tremayne Pandey Anesthesia: MAC Was an [facility] used for this Procedure?: No Estimated blood loss (mL): 2.0 Pathology: other (A. Gastric antrum) Condition: stable Disposition: PACU
[2022-07-20 11:47] VITALS: BP 131/79; PULSE 79; RESP 18; TEMP 37.3; O2SAT 96
--- NOTE | 2022-07-20 16:19 | OP_ITS ---
SURGEON: Tremayne Padney MD INDICATIONS: The patient presents for evaluation of abdominal pain and reflux. Full consent has been obtained from him for this, including risks of bleeding and perforation. PREOPERATIVE DIAGNOSIS: POSTOPERATIVE DIAGNOSIS: PROCEDURE PERFORMED: Esophagogastroduodenoscopy with biopsies. ESTIMATED BLOOD LOSS: COMPLICATIONS: ANESTHESIA: Monitored anesthesia care. ASSISTANTS: SPECIMENS: PREOPERATIVE DIAGNOSES: Abdominal pain and reflux. POSTOPERATIVE DIAGNOSES: Abdominal pain and reflux. Mild gastritis. Small hiatal hernia. DESCRIPTION OF PROCEDURE: The patient was placed in the left lateral decubitus position. The Olympus video gastroscope was passed in the posterior oropharynx and upper esophagus under direct vision. The scope was passed slowly to the distal esophagus. The gastroesophageal junction appeared normal at 35 cm. There was no sign of any esophagitis nor Ruiz's mucosa. There was a small hiatal hernia. The scope was advanced to pylorus and the duodenum was cannulated to the descending portion. The duodenum including the bulb appeared normal without mass or ulceration. The scope was withdrawn back to the stomach. The gastric antrum and body had some scattered areas of erythema and less than 5 mm erosions. There was good peristalsis. There was no mass or ulceration. Biopsies were obtained from the antrum. The scope was retroflexed visualizing the proximal stomach carefully, which appeared normal, without any sign of mass or ulceration. The scope was straightened and withdrawn back to the esophagus. The esophageal mucosa appeared normal. The scope was withdrawn from the patient. He tolerated the procedure well and returned to recovery area in stable condition. IMPRESSION: 1. Mild gastritis. 2. Small hiatal hernia. PLAN: The results of the biopsies will be checked. I will give him a prescription to use omeprazole for his upper GI complaints of the abdominal pain and reflux. A recent abdominal ultrasound was negative for gallstones nor any other pathology. He will see me for a followup office visit as well. MD HAI Valencia/BRAYDEN / [id number] MTDD
== END 2022-07-20 12:28 | disposition home or self-care (01) ==
PROVIDERS: PCP Family Medicine; Visit Provider Internal Medicine
PROC: 0DJ08ZZ Inspection of Upper Intestinal Tract, Via Natural or Artificial Opening Endoscopic (ICD-10-PCS; CPT 43235; principal; 2022-07-20 11:30)
DX: K29.50 Unspecified chronic gastritis without bleeding (principal); K21.9 Gastro-esophageal reflux disease without esophagitis; K44.9 Diaphragmatic hernia without obstruction or gangrene; I10 Essential (primary) hypertension; E78.5 Hyperlipidemia, unspecified; E11.9 Type 2 diabetes mellitus without complications; Z79.84 Long term (current) use of oral hypoglycemic drugs; Z79.899 Other long term (current) drug therapy
CPT/HCPCS: 43239; 82947; 88305; 88342

== ENCOUNTER 2022-11-06 07:28 | Outpatient (REF) | payer OTHER, MEDICAID, SELFPAY ==
--- NOTE | ~2022-11-06 | XR_ITS ---
Examination: Right knee CLINICAL INFORMATION: Pain TECHNIQUE: AP, lateral, sunrise view on the right and bilateral weightbearing view of the knees. COMPARISON: 08/31/2013 FINDINGS:There is mild narrowing of the medial compartment of both knee joints on the weightbearing view. On the right there is spurring of the lateral tibial plateau and minimal spurring of patella. There is small joint effusion. There is patellar enthesopathy. XR/XR knee RT 2V IMPRESSION: Mild degenerative changes in the right knee joint and small joint effusion.
--- NOTE | ~2022-11-06 | XR_ITS ---
Examination: Right knee CLINICAL INFORMATION: Pain TECHNIQUE: AP, lateral, sunrise view on the right and bilateral weightbearing view of the knees. COMPARISON: 08/31/2013 FINDINGS:There is mild narrowing of the medial compartment of both knee joints on the weightbearing view. On the right there is spurring of the lateral tibial plateau and minimal spurring of patella. There is small joint effusion. There is patellar enthesopathy. XR/XR knee standing BI IMPRESSION: Mild degenerative changes in the right knee joint and small joint effusion.
== END 2022-11-06 07:29 | disposition home or self-care (01) ==
LOC: HO.HOSX 07:28
PROVIDERS: Visit Provider Physician Assistant
DX: M17.11 Unilateral primary osteoarthritis, right knee (principal); M25.562 Pain in left knee
CPT/HCPCS: 73560; 73565

== ENCOUNTER 2023-08-24 18:43 | Emergency (ER) | payer OTHER, SELFPAY ==
[2023-08-24 19:23] VITALS: BP 146/84; PULSE 91; RESP 18; TEMP 36.8; O2SAT 97; BMI 30.4
--- NOTE | 2023-08-24 19:28 | ED.MALEGU ---
HPI - Male Genitourinary General Chief complaint: Urogenital-Male Stated complaint: jock itch Time Seen by Provider: 08/25/23 00:02 Source: patient, RN notes reviewed and old records reviewed Mode of arrival: ambulatory Limitations: no limitations History of Present Illness HPI Narrative: 47-year-old male presents for evaluation of ?rash on my scrotum. ? Patient has had a long history of dermatologic issues He reports for last 3 years he has had on and off ?jock itch. ? He also has psoriasis and therefore follows with dermatology He reports he was given a new rash alclometasone which he used for the 1st time a couple of days ago. Patient states that his rash got worse and he was scratching vigorously over the last 2 days He developed some blisters to the scrotum on the left side that have been weeping intermittently There is no rash on his pain is Related Data Home Medications Medication Instructions Recorded Confirmed lisinopril 20 mg tablet 20 mg PO DAILY 01/30/22 02/26/22 cyclobenzaprine 5 mg tablet 1 tab PO DAILY PRN Muscle Spasm 02/26/22 02/26/22 hydroxyzine pamoate 25 mg capsule 25 mg PO BEDTIME 02/26/22 02/26/22 pyridoxine (vitamin B6) 100 mg 100 mg PO DAILY 02/26/22 02/26/22 tablet (Vitamin B-6) escitalopram oxalate 5 mg tablet 5 mg PO DAILY 11/06/22 lorazepam 0.5 mg tablet 0.5 mg PO BID PRN 11/06/22 trazodone 50 mg tablet 50 mg PO BEDTIME PRN insomnia 11/06/22 Previous Rx's Medication Instructions Recorded tadalafil 5 mg tablet 5 mg PO DAILY PRN sexual activity 03/04/21 90 days #90 tabs metformin 500 mg tablet 500 mg PO DAILY #10 tabs 03/16/22 metformin 500 mg tablet,extended 500 mg PO DAILY #30 tabs 03/16/22 release 24 hr celecoxib 200 mg capsule (Celebrex) 200 mg PO BID 30 days #60 caps 11/09/22 oxycodone 5 mg tablet 5 mg PO Q6H PRN severe pain (scale 08/25/23 score 7-10) #12 tabs prednisone 20 mg tablet 40 mg (2 x 20 mg) PO DAILY #8 tabs 08/25/23 Allergies Allergy/AdvReac Type Severity Reaction Status Date / Time No Known Allergies Allergy Verified 08/24/23 19:28 [No Known Allergies*] Review of Systems Constitutional: Constitutional: Denies chills and Denies fever(s) Integumentary/Breasts: Skin/Breast: Reports rash PMFSH Past Medical History Medical History (Updated 08/25/23 @ 00:14 by Zbigniew Whipple) Anxiety Back pain Elevated cholesterol HTN (hypertension) Diabetes Surgical History (Updated 07/17/22 @ 12:32 by Cuca Amor RN) H/O colonoscopy Hx of cystoscopy Hx of anterior cruciate ligament surgery Social History Social History Alcohol intake: current Alcohol intake frequency: does not drink Patient Tobacco Use Status: Never used Tobacco Advance Directives: No Advance Directives Information Provided: No Physical Exam Vital Signs: Vital Signs: Last Vital Signs Temp 98.7 F 08/24/23 23:32 Pulse 83 08/24/23 23:32 Resp 16 08/24/23 23:32 BP 134/79 08/24/23 23:32 Pulse Ox 98 08/24/23 23:32 O2 Del Method Room Air 08/24/23 23:32 BMI result Body Mass Index 30.4 Const: General: healthy appearing, comfortable, no acute distress, alert and awake Nutritional Appearance: well nourished Orientation/consciousness: patient oriented x3 HEENT: Head: Yes normocephalic and Yes atraumatic Throat: Yes posterior oropharynx normal Eyes: Eyelids: Yes eyelids normal Conjunctivae: conjunctivae normal Sclerae: sclerae normal Corneas: corneas normal Pupils: Equal, round and reactive pupils present EOM: EOMs intact bilaterally Neck: Neck: Yes full ROM Resp: Effort & Inspection: normal respiratory effort, able to speak in complete sentences and not labored : Other: Patient has a mildly erythematous rash to the left hemiscrotum mostly. There is some clear vesicles without any open drainage. No increased warmth or purulence. There is 1 blister that appears filled with blood. Skin: General skin exam: elasticity normal Neuro: General: patient oriented x3 Cranial nerves: Yes Equal, round and reactive pupils present and Yes Bilaterally intact EOM present Cognition (Neuro): normal cognition Course Course Course Narrative: This is an RME: Additional HPI, ROS, PE not included below will be deferred to primary provider. This is a 47-year-old male presenting to the emergency department for evaluation of genital rash and perirectal rash. States that this is ongoing for the last 2-3 years. he has a specialist who has been taking care of this however states that he has been using topical ointment without any relief. Unable to rash in triage Plan: Medical Decision Making Medical Decision Making [facility] Narrative: Patient's rash appears most consistent with allergic reaction versus traumatic vesicles. It does not appear consistent with herpes simplex virus or cellulitis. 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 No leukocytosis or anemia. Normal platelet count. No significant electrolyte abnormalities. The patient's glucose is elevated to 176. There is no evidence of DKA 08/24/23 20:00 08/24/23 20:00 Labs: Lab Results 08/24/23 Range/Units 20:00 WBC 5.1 (4.8-10.8) X10*3/uL RBC 5.40 (4.60-5.80) X10*6/uL Hgb 15.8 (14.0-18.0) g/dl Hct 46.3 (42.0-52.0) % MCV 85.7 (80.0-98.0) fL MCH 29.3 (27.0-33.0) pg MCHC 34.1 (31.0-36.0) g/dl RDW 13.9 (11.0-16.0) % Plt Count 174 (160-400) X10*3/uL MPV 10.6 (9.4-12.4) fL Immature Gran % (Auto) 0.4 (0.0-0.4) % Neut % (Auto) 77.3 H (45-73) % Lymph % (Auto) 14.1 L (20-40) % [place] % (Auto) 7.8 (2-11) % Eos % (Auto) 0.2 (0-4) % Baso % (Auto) 0.2 (0-2) % Lymph # (Auto) 0.7 L (1.2-4.9) X10*3/uL [place] # (Auto) 0.4 (0.1-1.2) X10*3/uL Eos # (Auto) 0.0 (0.0-0.4) X10*3/uL Baso # (Auto) 0.0 (0.0-0.2) X10*3/uL Abs Immat Gran (auto) 0.02 (0.00-0.03) X10*3/uL Absolute Neuts (auto) 4.0 (2.0-8.3) x10*3/uL Absolute Nucleated RBC 0.000 (0.0-0.012) X10*3/uL Nucleated RBC % (auto) 0.0 (0.0-0.2) /100WBC Sodium 141 (135-145) mmol/L Potassium 3.8 (3.3-5.1) mmol/L Chloride 110 H (96-108) mmol/L Carbon Dioxide 23 (22-29) mmol/L Anion Gap 12 (12-20) BUN 11 (9-16) mg/dL Creatinine 0.83 (0.5-1.4) mg/dL Estim Creat Clear Calc 120.3 Estimated GFR > 60 Random Glucose 176 H (60-115) mg/dL Calcium 10.3 H D (8.4-10.2) mg/dL Total Bilirubin 0.6 (0.0-1.0) mg/dL AST 28 (5-37) U/L ALT 40 (0-40) U/L Alkaline Phosphatase 54 (39-117) U/L Total Protein 7.8 (6.5-8.0) g/dL Albumin 4.6 (3.5-5.0) g/dL Discharge Plan Discharge Clinical Impression: Rash on scrotum Patient Disposition: Home, Self-Care Instructions: Acute Rash (ED) Additional Instructions: Do not use the cream to your groin again Take prednisone 40 mg daily for the next 5 days I also recommend taking Benadryl 25 mg every 6 hours for the next 2 days Apply Vaseline to the area twice daily Follow-up with your drive shaft and steering post repairer Use Motrin/Tylenol as needed for pain You may use oxycodone for more severe breakthrough pain this may make you sleepy did not drink alcohol or drive after taking it Prescriptions: New prednisone 20 mg tablet 40 mg PO DAILY Qty: 8 0RF oxycodone 5 mg tablet 5 mg PO Q6H PRN (Reason: severe pain (scale score 7-10)) Qty: 12 0RF Rx Instructions: Partial Fill upon patient request. No Action celecoxib [Celebrex] 200 mg capsule 200 mg PO BID 30 Days Qty: 60 3RF lisinopril 20 mg tablet 20 mg PO DAILY pyridoxine (vitamin B6) [Vitamin B-6] 100 mg Tablet 100 mg PO DAILY hydroxyzine pamoate 25 mg Capsule 25 mg PO BEDTIME cyclobenzaprine 5 mg tablet 1 tab PO DAILY PRN (Reason: Muscle Spasm) metformin 500 mg tablet 500 mg PO DAILY Qty: 10 0RF metformin 500 mg tablet extended release 24 hr 500 mg PO DAILY Qty: 30 1RF tadalafil 5 mg tablet 5 mg PO DAILY PRN (Reason: sexual activity) 90 Days Qty: 90 1RF escitalopram oxalate 5 mg tablet 5 mg PO DAILY lorazepam 0.5 mg tablet 0.5 mg PO BID PRN trazodone 50 mg tablet 50 mg PO BEDTIME PRN (Reason: insomnia) Referrals: Noah Gupta MD [Physician] - (scrotal rash) Stand Alone Forms: Work/School Release
[2023-08-24 20:05] LABS: MANUAL DIFF FLAG NO
--- NOTE | 2023-08-24 20:06 | MHC.EDTECH ---
PATIENT NOT ABLE TO GIVE URINE SAMPLE AT THIS TIME ,BLOOD DRAWN AND SENT TO LAB .
[2023-08-24 20:07] LABS: Basophils Percent Auto 0.2 % (0-2); Eosinophils Percent Auto 0.2 % (0-4); Hematocrit 46.3 % (42.0-52.0); Hemoglobin 15.8 g/dl (14.0-18.0); Imm Gran Abs Auto 0.02 X10*3/uL (0.00-0.03); Imm Gran Pct Auto 0.4 % (0.0-0.4); Lymphocytes Absolute Auto 0.7 X10*3/uL (1.2-4.9); Lymphocytes Percent Auto 14.1 % (20-40); Mean Corpuscular HGB Conc 34.1 g/dl (31.0-36.0); Mean Corpuscular Hemoglobin 29.3 pg (27.0-33.0); Mean Corpuscular Volume 85.7 fL (80.0-98.0); Mean Platelet Volume 10.6 fL (9.4-12.4); Monocytes Absolute Auto 0.4 X10*3/uL (0.1-1.2); Monocytes Percent Auto 7.8 % (2-11); Neutrophils Percent Auto 77.3 % (45-73); Platelet Count 174 X10*3/uL (160-400); Red Cell Distribution Width 13.9 % (11.0-16.0); White Blood Count 5.1 X10*3/uL (4.8-10.8)
[2023-08-24 20:22] LABS: Alanine Aminotransferase 40 U/L (0-40); Albumin Level 4.6 g/dL (3.5-5.0); Anion Gap 12 (12-20); Aspartate Amino Transferase 28 U/L (5-37); Bilirubin Total 0.6 mg/dL (0.0-1.0); Blood Urea Nitrogen 11 mg/dL (9-16); Calcium 10.3 mg/dL (8.4-10.2); Carbon Dioxide 23 mmol/L (22-29); Chloride 110 mmol/L (96-108); Creatinine Clr Calc Pharmacy 120.3; Estimated Glomerular Filt Rate > 60; Glucose Random 176 mg/dL (60-115); Potassium 3.8 mmol/L (3.3-5.1); Sodium 141 mmol/L (135-145); Total Protein 7.8 g/dL (6.5-8.0)
[2023-08-24 20:23] LABS: Alkaline Phosphatase 54 U/L (39-117)
[2023-08-24 23:32] VITALS: BP 134/79; PULSE 83; RESP 16; TEMP 37.1; O2SAT 98
--- NOTE | 2023-08-24 23:35 | MHC.EDTECH ---
PATIENT WAS REASSESS IN TRIAGE ,VITALS TAKEN, PATIENT STATED HE IS IN EXCRUCIATING PAIN ,VITALS STABLE RN JACKIE AWARE .
[2023-08-25] MEDS: predniSONE 20 MG TABLET 40 MG PO (00:24)
[2023-08-25 00:27] VITALS: BP 137/87; PULSE 87; RESP 18; TEMP 36.8; O2SAT 98
[2023-08-25 07:22] LABS: Syphilis Screen Nonreactive (Nonreactive)
== END 2023-08-25 00:29 | disposition home or self-care (01) ==
PROVIDERS: Physician Assistant Medical; Emergency Provider Internal Medicine; PCP Family Medicine
DX: B35.6 Tinea cruris (principal); N50.82 Scrotal pain; Z79.899 Other long term (current) drug therapy
CPT/HCPCS: 36415; 80053; 85025; 86780; 99282; 99283

== ENCOUNTER 2023-08-26 13:20 | Outpatient (REF) | payer OTHER, SELFPAY ==
[2023-08-26 16:35] LABS: Alanine Aminotransferase 39 U/L (0-40); Albumin Level 4.8 g/dL (3.5-5.0); Alkaline Phosphatase 65 U/L (39-117); Anion Gap 16 (12-20); Aspartate Amino Transferase 25 U/L (5-37); Bilirubin Total 0.5 mg/dL (0.0-1.0); Blood Urea Nitrogen 19 mg/dL (9-16); Calcium 9.9 mg/dL (8.4-10.2); Carbon Dioxide 27 mmol/L (22-29); Chloride 103 mmol/L (96-108); Cholesterol 235 mg/dL (<200); Estimated Glomerular Filt Rate > 60; Glucose Random 172 mg/dL (60-115); HDL Cholesterol 57 mg/dL (>40); LDL Cholesterol Calculated 148 mg/dL (<100); Potassium 4.9 mmol/L (3.3-5.1); Sodium 141 mmol/L (135-145); Total Protein 7.5 g/dL (6.5-8.0); Triglycerides 154 mg/dL (<150)
[2023-08-26 16:40] LABS: Reflex LDLD? No
[2023-08-26 16:46] LABS: TSH reflex Free T4 1.94 uIU/mL (0.32-4.0)
[2023-08-26 17:00] LABS: Folate 11.3 ng/mL (> or = 4.0); Vitamin B12 954 pg/mL (200-900)
[2023-08-26 17:01] LABS: Microalbum/Creatinine Ratio Ur 3.4 ug/mg cr (<30)
[2023-08-27 08:54] LABS: Syphilis Screen Nonreactive (Nonreactive)
[2023-08-27 09:15] LABS: HBS Num1 19.83 mIU/mL (0-7.99); HBc Num1 0.17 S/CO (0.00-0.79); HBsAGNum1 0.37 S/CO (0.00-0.99); HIV AB/AG Nonreactive (Nonreactive); HIV Num 1 0.06 S/CO (0.00-0.99); Hepatitis B Core Antibody Nonreactive (Nonreactive); Hepatitis B Surface Antigen Negative (Negative); ~HepC Num1 0.26 S/CO (0.00-0.79); ~Hepatitis B Surface Antibody REACTIVE (Nonreactive); ~Hepatitis C Antibody Nonreactive (Nonreactive)
== END 2023-08-26 13:21 | disposition home or self-care (01) ==
LOC: HO.HHCL 13:20
PROVIDERS: Visit Provider Family Medicine
DX: E11.9 Type 2 diabetes mellitus without complications (principal); R53.83 Other fatigue; Z20.2 Contact with and (suspected) exposure to infections with a predominantly sexual mode of transmission
CPT/HCPCS: 36415; 80053; 80061; 82043; 82570; 82607; 82746; 84443; 86704; 86706; 86780; 86803; 87340; 87389

== ENCOUNTER 2023-08-27 21:06 | Emergency (ER) | payer OTHER, SELFPAY ==
[2023-08-27 21:31] VITALS: BP 115/88; PULSE 96; RESP 14; TEMP 36.4; O2SAT 96; BMI 31.8
--- NOTE | 2023-08-27 22:37 | ED_ITS ---
HPI - General Adult General Chief complaint: General Medical Stated complaint: testicular infection, rectal infection? 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 came here last week and started on prednisone for dermatitis now he comes back at skin is peeling off and more redness no fever no chills also patient complaining of reducible tender external hemorrhoid which started today Related Data Home Medications Medication Instructions Recorded Confirmed lisinopril 20 mg tablet 20 mg PO DAILY 01/30/22 02/26/22 cyclobenzaprine 5 mg tablet 1 tab PO DAILY PRN Muscle Spasm 02/26/22 02/26/22 hydroxyzine pamoate 25 mg capsule 25 mg PO BEDTIME 02/26/22 02/26/22 pyridoxine (vitamin B6) 100 mg 100 mg PO DAILY 02/26/22 02/26/22 tablet (Vitamin B-6) escitalopram oxalate 5 mg tablet 5 mg PO DAILY 11/06/22 lorazepam 0.5 mg tablet 0.5 mg PO BID PRN 11/06/22 trazodone 50 mg tablet 50 mg PO BEDTIME PRN insomnia 11/06/22 Previous Rx's Medication Instructions Recorded tadalafil 5 mg tablet 5 mg PO DAILY PRN sexual activity 03/04/21 90 days #90 tabs metformin 500 mg tablet 500 mg PO DAILY #10 tabs 03/16/22 metformin 500 mg tablet,extended 500 mg PO DAILY #30 tabs 03/16/22 release 24 hr celecoxib 200 mg capsule (Celebrex) 200 mg PO BID 30 days #60 caps 11/09/22 oxycodone 5 mg tablet 5 mg PO Q6H PRN severe pain (scale 08/25/23 score 7-10) #12 tabs prednisone 20 mg tablet 40 mg (2 x 20 mg) PO DAILY #8 tabs 08/25/23 cephalexin 500 mg capsule 500 mg PO QID 10 days #40 caps 08/27/23 doxycycline hyclate 100 mg tablet 100 mg PO BID #20 tabs 08/27/23 morphine 15 mg immediate release 15 mg PO Q8H PRN pain #15 tabs 08/27/23 tablet silver sulfadiazine 1 % topical 1 appl topical BID #85 grams 08/27/23 cream (Silvadene) Allergies Allergy/AdvReac Type Severity Reaction Status Date / Time No Known Allergies Allergy Verified 08/27/23 21:31 [No Known Allergies*] Review of Systems Review of Systems: Yes all other systems are reviewed and are negative [facility] Past Medical History Medical History Anxiety Back pain Elevated cholesterol HTN (hypertension) Diabetes Surgical History H/O colonoscopy Hx of cystoscopy Hx of anterior cruciate ligament surgery Social History Social History Alcohol intake: never Patient Tobacco Use Status: Never used Tobacco Smoked in Last 30 Days: No Use of substances other than those prescribed or required for medical reasons: No Advance Directives: No Advance Directives Information Provided: No Physical Exam ED Vital Signs: Vital Signs - 24 hr 08/27/23 21:31 08/27/23 23:50 Temperature 97.6 F 97.4 F Pulse Rate 96 88 Respiratory Rate 14 16 Blood Pressure 115/88 125/79 Pulse Oximetry 96 98 Oxygen Delivery Method Room Air Room Air BMI result Body Mass Index 31.8 Appearance: Alert. Oriented X3. No acute distress. Eyes: No pallor or icterus ENT: Pharynx normal. Oral Mucosa moist Neck: Normal inspection. Neck supple. CVS: Normal heart rate and rhythm. Pulses normal. Respiratory: No respiratory distress. Equal air entry bilateral, no wheezing/rales/rhonchi Abdomen: Soft and nontender. Bowel sounds are present, rectum: Thrombosed external hemorrhoid tender Skin: Scrotum peeled off Skin involving most off the scrotum with erythema Extremities: No lower extremity edema. No calf tenderness Neuro: Oriented X 3. No motor deficit. No sensory deficit.No cerebellar signs , cranial nerves II-XII intact Medications Administered Discontinued Medications Generic Name Dose Route Start Last Admin Trade Name Freq PRN Reason Stop Dose Admin Cephalexin HCl 500 mg 08/27/23 22:45 08/27/23 23:03 Cephalexin 500 Mg Capsule PO 08/27/23 22:46 500 mg ONCE ONE Administration Doxycycline Monohydrate 100 mg 08/27/23 22:45 08/27/23 23:03 Doxycycline Monohydrate 100 Mg Capsule PO 08/27/23 22:46 100 mg ONCE ONE Administration Lidocaine HCl 5 ml 08/27/23 22:45 08/27/23 23:03 Lidocaine Hcl 1 % Mpf 5 Ml Vial INFILTRATI 08/27/23 22:46 5 ml ONCE ONE Administration Morphine Sulfate 15 mg 08/27/23 22:59 08/27/23 23:03 Morphine Sulfate Immed Release 15 Mg Tablet PO 08/27/23 23:00 15 mg ONCE ONE Administration Silver Sulfadiazine 1 appl 08/27/23 22:45 08/27/23 23:03 Silver Sulfadiazine 1 % Cream 20 Gm Tube TOPICAL 08/27/23 22:46 1 appl ONCE ONE Administration Procedures Procedure Narrative Procedure Narrative: External thrombosed hemorrhoidectomy using 1% lidocaine 5 cc was injected an elliptical incision was made and big blood clots were removed patient felt much better. Medical Decision Making Medical Decision Making [facility] Narrative: Patient with dermatitis of the scrotum with skin peeling off with cellulitis Silvadene cream was applied will give prescription of doxycycline and Keflex For external thrombosed hemorrhoid thrombectomy was done and blood clots were removed patient felt much better patient advised to follow with PCP report to the ER in 2 days for recheck Differential Diagnosis Differential Diagnoses: The differential diagnosis associated with the presentation includes Cellulitis of the scrotum/thrombosed hemorrhoid Discharge Plan Discharge Clinical Impression: Cellulitis, Rash on scrotum, External hemorrhoid, thrombosed Patient Disposition: Home, Self-Care Instructions: Hemorrhoids (ED), Cellulitis (ED), Acute Rash (ED) Additional Instructions: Local care of of scrotal skin as advised Apply Silvadene cream twice daily, keep area dry and clean Oral antibiotic as prescribed Report to the ER on 08/30/23 for wound recheck Avoid constipation Report to the ER if gets worse Prescriptions: New cephalexin 500 mg capsule 500 mg PO QID 10 Days Qty: 40 0RF morphine 15 mg tablet 15 mg PO Q8H PRN (Reason: pain) Qty: 15 0RF Rx Instructions: Partial Fill upon patient request. doxycycline hyclate 100 mg tablet 100 mg PO BID Qty: 20 0RF silver sulfadiazine [Silvadene] 1 % cream 1 appl topical BID Qty: 85 0RF Rx Instructions: apply a 1.5 mm thickness No Action celecoxib [Celebrex] 200 mg capsule 200 mg PO BID 30 Days Qty: 60 3RF lisinopril 20 mg tablet 20 mg PO DAILY pyridoxine (vitamin B6) [Vitamin B-6] 100 mg Tablet 100 mg PO DAILY hydroxyzine pamoate 25 mg Capsule 25 mg PO BEDTIME cyclobenzaprine 5 mg tablet 1 tab PO DAILY PRN (Reason: Muscle Spasm) metformin 500 mg tablet 500 mg PO DAILY Qty: 10 0RF metformin 500 mg tablet extended release 24 hr 500 mg PO DAILY Qty: 30 1RF prednisone 20 mg tablet 40 mg PO DAILY Qty: 8 0RF oxycodone 5 mg tablet 5 mg PO Q6H PRN (Reason: severe pain (scale score 7-10)) Qty: 12 0RF Rx Instructions: Partial Fill upon patient request. tadalafil 5 mg tablet 5 mg PO DAILY PRN (Reason: sexual activity) 90 Days Qty: 90 1RF escitalopram oxalate 5 mg tablet 5 mg PO DAILY lorazepam 0.5 mg tablet 0.5 mg PO BID PRN trazodone 50 mg tablet 50 mg PO BEDTIME PRN (Reason: insomnia) Stand Alone Forms: Work/School Release Interventions: ED Discharge Assessment Last Done: 08/27/23 23:50 Discharge Date/Time: 08/27/23 23:55
[2023-08-27] MEDS: Silver Sulfadiazine 1 % Cream 20 GM TUBE 1 APPL TOPICAL (23:03)
[2023-08-27] MEDS: Morphine Sulfate Immed Release 15 MG TABLET PO (23:03)
[2023-08-27] MEDS: Lidocaine HCl 1 % MPF 5 ML VIAL INFILTRATI (23:03)
[2023-08-27] MEDS: Doxycycline Monohydrate 100 MG CAPSULE PO (23:03)
[2023-08-27] MEDS: cephALEXin 500 MG CAPSULE PO (23:03)
[2023-08-27 23:50] VITALS: BP 125/79; PULSE 88; RESP 16; TEMP 36.3; O2SAT 98
== END 2023-08-27 23:55 | disposition home or self-care (01) ==
PROVIDERS: Emergency Provider Internal Medicine; PCP Family Medicine
DX: N49.2 Inflammatory disorders of scrotum (principal); K64.5 Perianal venous thrombosis
CPT/HCPCS: 46083; 99284

== ENCOUNTER 2023-08-30 11:59 | Emergency (ER) | payer OTHER, SELFPAY ==
[2023-08-30 12:06] VITALS: BP 138/84; PULSE 85; RESP 20; TEMP 36.6; O2SAT 98; BMI 32.6
--- NOTE | 2023-08-30 12:06 | ED_ITS ---
HPI - General Adult General Chief complaint: General Medical Stated complaint: Wound Recheck Time Seen by Provider: 08/30/23 13:44 Source: patient Mode of arrival: ambulatory Limitations: no limitations History of Present Illness HPI narrative: Patient is a 47-year-old male presenting to the emergency department with small amount of rectal bleeding. He was seen in this emergency department on 08/26 and had a thrombosed hemorrhoidectomy. Was told to return today for a wound check. He states he has not had a bowel movement in 5 days. He was not discharged home with any laxatives. He denies any abdominal pain, nausea, vomiting. MD complaint: wound check Onset (ago): day(s) Severity: mild Quality: aching Relieving factors: rest Exacerbating factors: movement Treatments prior to arrival: other Related Data Home Medications Medication Instructions Recorded Confirmed lisinopril 20 mg tablet 20 mg PO DAILY 01/30/22 02/26/22 cyclobenzaprine 5 mg tablet 1 tab PO DAILY PRN Muscle Spasm 02/26/22 02/26/22 hydroxyzine pamoate 25 mg capsule 25 mg PO BEDTIME 02/26/22 02/26/22 pyridoxine (vitamin B6) 100 mg 100 mg PO DAILY 02/26/22 02/26/22 tablet (Vitamin B-6) escitalopram oxalate 5 mg tablet 5 mg PO DAILY 11/06/22 lorazepam 0.5 mg tablet 0.5 mg PO BID PRN 11/06/22 trazodone 50 mg tablet 50 mg PO BEDTIME PRN insomnia 11/06/22 Previous Rx's Medication Instructions Recorded tadalafil 5 mg tablet 5 mg PO DAILY PRN sexual activity 03/04/21 90 days #90 tabs metformin 500 mg tablet 500 mg PO DAILY #10 tabs 03/16/22 metformin 500 mg tablet,extended 500 mg PO DAILY #30 tabs 03/16/22 release 24 hr celecoxib 200 mg capsule (Celebrex) 200 mg PO BID 30 days #60 caps 11/09/22 oxycodone 5 mg tablet 5 mg PO Q6H PRN severe pain (scale 08/25/23 score 7-10) #12 tabs prednisone 20 mg tablet 40 mg (2 x 20 mg) PO DAILY #8 tabs 08/25/23 cephalexin 500 mg capsule 500 mg PO QID 10 days #40 caps 08/27/23 doxycycline hyclate 100 mg tablet 100 mg PO BID #20 tabs 08/27/23 morphine 15 mg immediate release 15 mg PO Q8H PRN pain #15 tabs 08/27/23 tablet silver sulfadiazine 1 % topical 1 appl topical BID #85 grams 08/27/23 cream (Silvadene) docusate sodium 100 mg capsule 100 mg PO BID #14 caps 08/30/23 polyethylene glycol 3350 17 17 g PO DAILY #119 grams 08/30/23 gram/dose oral powder (ClearLax) sennosides 8.6 mg tablet (senna) 8.6 mg PO BID PRN constipation #14 08/30/23 tabs Allergies Allergy/AdvReac Type Severity Reaction Status Date / Time No Known Allergies Allergy Verified 08/27/23 21:31 [No Known Allergies*] Review of Systems Review of Systems: As per HPI. Yes all other systems are reviewed and are negative Constitutional: Constitutional: Reports as per HPI [facility] Past Medical History Medical History Anxiety Back pain Elevated cholesterol HTN (hypertension) Diabetes Surgical History H/O colonoscopy Hx of cystoscopy Hx of anterior cruciate ligament surgery Social History Social History Alcohol intake: never Patient Tobacco Use Status: Never used Tobacco Advance Directives: No Advance Directives Information Provided: No Physical Exam ED Vital Signs: Vital Signs - 24 hr 08/30/23 12:06 Temperature 97.8 F Pulse Rate 85 Respiratory Rate 20 Blood Pressure 138/84 Pulse Oximetry 98 Oxygen Delivery Method Room Air BMI result Body Mass Index 32.6 Vital signs have been reviewed and appear to be correct. Blood pressure normal. Heart rate normal. Respiratory rate normal. Temperature normal. Oxygen saturation normal. Const General: cooperative, healthy appearing and no acute distress Orientation/consciousness: oriented to person, oriented to place, oriented to time and patient oriented x3 Limitations: no limitations HENMT Head: Yes normocephalic and Yes atraumatic Ears: external ears normal General nose exam: Normal external nose present Face and sinus: Yes face symmetric Mouth: oropharynx normal and moist mucous membranes Throat: Yes uvula midline Eyes Pupils: Equal, round and reactive pupils present Neck Neck: Yes normal visual inspection and Yes supple Resp Effort & Inspection: normal respiratory effort and able to speak in complete sentences Auscultation: clear to auscultation bilaterally Cardio Rate: regular rate Rhythm: regular rhythm Heart sounds: S1 normal heart sound present and S2 normal heart sound present GI Other: Exam chaperoned by kanu Fernandez Palpation (GI): Soft to palpation and nontender Auscultation: normoactive bowel sounds Rectal Exam - Male: Yes External hemorrhoid(s) present (no erythema, swelling, drainage, scant amount of dried blood noted to butto) General: Yes no CVA tenderness Back/Spine/Pelvis Back: no CVA tenderness Skin General skin exam: elasticity normal and turgor normal Neuro General: oriented to person, oriented to place, oriented to time, patient oriented x3, moves all extremities, no focal motor deficits and CN's II-XI intact bilaterally Cranial nerves: Yes Equal, round and reactive pupils present Cognition (Neuro): normal cognition Extrem General: Yes full ROM, Yes no pedal edema and Yes no calf tenderness Psych Mental Status: mental status grossly normal Affect: normal affect Thought process: Normal thought process present Course Course Course Narrative: RME performed by Chantell Luna PA-C. Patient is a 47 year old assigned male at presenting to the emergency department with a wound re-check. Patient had a hemorroidectomy on 08/27/2023 and was told to come back for wound re- check. Detailed physical exam and review of systems are deferred to the rn clinician. Patient placed back in the waiting room pending room availability. Medical Decision Making Medical Decision Making MDM Narrative: Patient is a 47-year-old male presenting to the emergency department with small amount of rectal bleeding and constipation. On exam patient is awake, A+Ox3, VS WNL, afebrile, normal neurological exam without focal deficits, physical exam findings as above. Given reported symptoms and physical exam findings, initial differential includes infection, abscess, constipation. Physical exam findings are not concerning for infection. Patient has been taking his antibiotics as prescribed. We will send prescriptions for MiraLax, senna, Colace to patient's pharmacy and advised him to increase his fluid intake. Discussed with patient that the morphine prescribed to him on 08/26 can cause constipation. Will refer patient to general surgery for any ongoing concerns regarding his hemorrhoids. Return precautions discussed at bedside. Patient verbalized understanding of and agreement with plan. Differential Diagnosis Differential Diagnoses: The differential diagnosis associated with the presentation includes As per MDM. External Record Review External record reviewed: Inpatient record, Office record and Outpatient record Prescription Management I considered prescription management with: Other Discharge Plan Discharge Clinical Impression: External hemorrhoid, Encounter for wound re-check, Constipation Patient Disposition: Home, Self-Care Instructions: Hemorrhoids (DC), Hemorrhoidectomy (DC) Additional Instructions: You were seen in the emergency department today for a wound check of a hemorrhoidectomy performed on 08/26. The area appears to be healing well. You are being prescribed stool softeners so that you do not strain while having a bowel movement. Please take these as prescribed. You are being referred to General surgery for any ongoing symptoms and further management of your hemorrhoids. Return to the emergency department if you develop uncontrolled bleeding, fever, thick yellow drainage or any other concerning symptoms. Prescriptions: New polyethylene glycol 3350 [ClearLax] 17 gram/dose powder 17 g PO DAILY Qty: 119 0RF sennosides [senna] 8.6 mg tablet 8.6 mg PO BID PRN (Reason: constipation) Qty: 14 0RF docusate sodium 100 mg capsule 100 mg PO BID Qty: 14 0RF No Action celecoxib [Celebrex] 200 mg capsule 200 mg PO BID 30 Days Qty: 60 3RF lisinopril 20 mg tablet 20 mg PO DAILY pyridoxine (vitamin B6) [Vitamin B-6] 100 mg Tablet 100 mg PO DAILY hydroxyzine pamoate 25 mg Capsule 25 mg PO BEDTIME cyclobenzaprine 5 mg tablet 1 tab PO DAILY PRN (Reason: Muscle Spasm) metformin 500 mg tablet 500 mg PO DAILY Qty: 10 0RF metformin 500 mg tablet extended release 24 hr 500 mg PO DAILY Qty: 30 1RF prednisone 20 mg tablet 40 mg PO DAILY Qty: 8 0RF oxycodone 5 mg tablet 5 mg PO Q6H PRN (Reason: severe pain (scale score 7-10)) Qty: 12 0RF Rx Instructions: Partial Fill upon patient request. cephalexin 500 mg capsule 500 mg PO QID 10 Days Qty: 40 0RF morphine 15 mg tablet 15 mg PO Q8H PRN (Reason: pain) Qty: 15 0RF Rx Instructions: Partial Fill upon patient request. doxycycline hyclate 100 mg tablet 100 mg PO BID Qty: 20 0RF silver sulfadiazine [Silvadene] 1 % cream 1 appl topical BID Qty: 85 0RF Rx Instructions: apply a 1.5 mm thickness tadalafil 5 mg tablet 5 mg PO DAILY PRN (Reason: sexual activity) 90 Days Qty: 90 1RF escitalopram oxalate 5 mg tablet 5 mg PO DAILY lorazepam 0.5 mg tablet 0.5 mg PO BID PRN trazodone 50 mg tablet 50 mg PO BEDTIME PRN (Reason: insomnia) Referrals: [facility] [facility] [place] [Provider Group]
== END 2023-08-30 19:38 | disposition home or self-care (01) ==
PROVIDERS: Emergency Provider Emergency Medicine; PCP Family Medicine
DX: K64.4 Residual hemorrhoidal skin tags (principal); K59.00 Constipation, unspecified; E11.9 Type 2 diabetes mellitus without complications; I10 Essential (primary) hypertension; Z98.890 Other specified postprocedural states
CPT/HCPCS: 99281

== ENCOUNTER 2023-09-01 13:58 | Outpatient (AMB) | payer OTHER, SELFPAY ==
--- NOTE | 2023-09-01 13:59 | A.OFFVIS_ITS ---
Intake Vital Signs 09/01/23 14:07 Height 5 ft 8 in Weight 214 lb 11.684 oz BMI 32.6 BP 124/70 Blood Pressure Location Rt brachial Position Sitting Pulse 78 Intake Visit Reasons: ER follow-up hemorrhoids/rectal bleeding Intake Note: [place] [facility] rectal bleeding and hemorrhoids. Patient c/o; reports pain, unable to sit, reports rectal bleeding. Telephone Order Dispatcher Required: Yes Telephone Order Dispatcher Language: Materials Coordinator Name: Azam Information Interpreted: non-clinical & clinical Accompanied by: Self / Same As Patient Allergies No Known Allergies [No Known Allergies*] Allergy (Verified 09/01/23 14:08) HPI ER follow-up hemorrhoids/rectal bleeding HPI Details 47-year-old male here because of hemorrh oid issues. He says that he has noticed blood on wiping for the past 6 days. He feels a lump outside his anus as well. He says that he had not noticed this previously. He admits to having some issues with constipation as well. He actually went to the ER 2 days ago and was referred to me because of his hemorrhoids. [facility] Medical History Anxiety Back pain Elevated cholesterol HTN (hypertension) Diabetes Surgical History H/O colonoscopy Hx of cystoscopy Hx of anterior cruciate ligament surgery Social History Alcohol intake: never Patient Tobacco Use Status: Never used Tobacco Review of Systems Const Denies chills and Denies fever(s) Card Denies chest pain, Denies dyspnea and Denies dyspnea on exertion Resp Denies cough, Denies dyspnea and Denies dyspnea on exertion GI Reports hematochezia, Denies change in bowel habits and Reports constipation Denies hematuria and Denies difficulty urinating Musc Denies back pain and Denies limited range of motion Neuro Denies focal weakness and Denies convulsions Psych Reports anxiety, Reports depression and Denies mood swings Physical Exam Vital Signs: Last Vital Signs Pulse 78 09/01/23 14:07 BP 124/70 09/01/23 14:07 BMI result Body Mass Index 32.6 Const General: comfortable and no acute distress Orientation/consciousness: patient oriented x3 Neck Neck: Yes no lymphadenopathy Resp Auscultation: clear to auscultation bilaterally Cardio Rhythm: regular rhythm GI Other: Rectal exam shows external hemorrhoids on both the left and right side. There was note of some thrombosis on the left with note of old blood through a small opening. He has a little tender on the left side. I therefore did not proceed with anoscopy Palpation (GI): Soft to palpation, nontender and no guarding Neuro General: patient oriented x3 Assessment & Plan Assessment & Plan (1) External hemorrhoid, thrombosed: Code(s): K64.5 - Perianal venous thrombosis Plan: He describes some pain bleeding from his hemorrhoids. Examination suggest thrombosis on the left side with his external hemorrhoids. I recommended to him to do hot Sitz baths or warm soaks to the area. I advised him to avoid straining and constipation. I assured him that he does not need any urgent surgical intervention at this time I will him again for a follow-up in about 2-3 weeks to see how he is doing. He does understand the option of hemorrhoidectomy for severe symptoms down the line. Coding Level of Care Code New Pt Level 3 (86375) Diagnoses External hemorrhoid, thrombosed K64.5
[2023-09-01 14:07] VITALS: BP 124/70; PULSE 78; BMI 32.6
== END 2023-09-01 14:25 | disposition home or self-care (01) ==
PROVIDERS: PCP Family Medicine; Visit Provider Surgery
DX: K64.5 Perianal venous thrombosis (principal)
CPT/HCPCS: 99203

== ENCOUNTER → 2023-09-01 13:58 | Outpatient (BNVA) | payer OTHER, SELFPAY | PROVIDERS: PCP Family Medicine; Visit Provider Surgery ==

== ENCOUNTER 2023-09-22 10:41 | Outpatient (AMB) | payer OTHER, MEDICAID, SELFPAY ==
[2023-09-22 10:53] VITALS: BP 117/66; PULSE 87; BMI 32.6
--- NOTE | 2023-09-22 10:53 | MHC.OFFVIS ---
Intake Vital Signs 09/22/23 10:53 Height 5 ft 8 in Weight 214 lb 11.684 oz BMI 32.6 BP 117/66 Blood Pressure Location Lt brachial Position Sitting Pulse 87 Intake Visit Reasons: 3 wks follow up hemorrhoids Intake Note: This patient presents for a three week follow-up for hemorrhoids. Pt c/o; reports no complaints. Developer Advocate Required: Yes Developer Advocate Language: Frisian Accompanied by: Self / Same As Patient Allergies No Known Allergies [No Known Allergies*] Allergy (Verified 09/22/23 11:03) Medication List - Last Reconciled 09/22/23 by Chandrakant Moya MD celecoxib (Celebrex) 200 mg PO BID 30 days cephalexin 500 mg PO QID 10 days clonazepam 1 mg PO TID PRN cyclobenzaprine 1 tab PO DAILY PRN docusate sodium 100 mg PO BID doxycycline hyclate 100 mg PO BID escitalopram oxalate 10 mg PO DAILY escitalopram oxalate 5 mg PO DAILY hydroxyzine pamoate 25 mg PO BEDTIME lisinopril 20 mg PO DAILY lorazepam 0.5 mg PO BID PRN meloxicam 7.5 mg PO BID metformin 500 mg PO DAILY metformin ER 500 mg PO DAILY morphine 15 mg PO Q8H PRN oxycodone 5 mg PO Q6H PRN polyethylene glycol 3350 (ClearLax) 17 grams PO DAILY prednisone 40 mg (2 x 20 mg) PO DAILY pyridoxine (vitamin B6) (Vitamin B-6) 100 mg PO DAILY sennosides (senna) 8.6 mg PO BID PRN silver sulfadiazine 1% (Silvadene) 1 appl topical BID tadalafil 5 mg PO DAILY PRN 90 days trazodone 50 mg PO BEDTIME PRN HPI 3 wks follow up hemorrhoids HPI Details I had seen him 3 weeks ago for a thrombosed external hemorrhoid. I had advised him on warm soaks and that is Sitz baths on the area. He has been doing very well since then. He says that he is pain and swelling seems to have resolved already. He denies any problems with bowel movements. [facility] Medical History Anxiety Back pain Elevated cholesterol HTN (hypertension) Diabetes Surgical History H/O colonoscopy Hx of cystoscopy Hx of anterior cruciate ligament surgery Social History Alcohol intake: never Patient Tobacco Use Status: Never used Tobacco Review of Systems Const Denies chills and Denies fever(s) Card Denies chest pain, Denies dyspnea and Denies dyspnea on exertion Resp Denies cough, Denies dyspnea and Denies dyspnea on exertion GI Reports hematochezia, Denies change in bowel habits and Reports constipation Denies hematuria and Denies difficulty urinating Musc Denies back pain and Denies limited range of motion Neuro Denies focal weakness and Denies convulsions Psych Reports anxiety, Reports depression and Denies mood swings Physical Exam Vital Signs: Last Vital Signs Pulse 87 09/22/23 10:53 BP 117/66 09/22/23 10:53 BMI result Body Mass Index 32.6 Const General: comfortable and no acute distress Resp Effort & Inspection: normal respiratory effort GI Other: Rectal exam shows the thrombosed hemorrhoid has resolved, there is a residual external hemorrhoid the left but no tenderness, no inflammation at this time Assessment & Plan Assessment & Plan (1) External hemorrhoid, thrombosed: Code(s): K64.5 - Perianal venous thrombosis Plan: This has resolved. He denies any pain or tenderness at this time. I did tell him that if his hemorrhoids bother him in the future, he can come back to the office to be re-evaluated for possible hemorrhoidectomy. He is comfortable with the plan. Coding Level of Care Code Est Pt Level 2 (21404) Diagnoses External hemorrhoid, thrombosed K64.5
== END 2023-09-22 11:23 | disposition home or self-care (01) ==
PROVIDERS: PCP Family Medicine; Visit Provider Surgery
DX: K64.5 Perianal venous thrombosis (principal)
CPT/HCPCS: 99212

== ENCOUNTER → 2023-09-22 10:41 | Outpatient (BNVA) | payer OTHER, SELFPAY | PROVIDERS: PCP Family Medicine; Visit Provider Surgery ==

== ENCOUNTER → 2024-08-07 17:30 | Outpatient (BNV) | payer OTHER, SELFPAY | PROVIDERS: PCP Family Medicine; Visit Provider Radiology Diagnostic Radiology | DX: M47.817 Spondylosis without myelopathy or radiculopathy, lumbosacral region (principal) | CPT/HCPCS: 72148 ==

== ENCOUNTER 2024-08-07 17:31 | Outpatient (REF) | payer OTHER, SELFPAY ==
--- NOTE | ~2024-08-07 | MR_ITS ---
EXAMINATION: MR LUMBAR SPINE WITHOUT CONTRAST CLINICAL INFORMATION: Low back pain radiating to lower extremities. Weakness and numbness. COMPARISON: None available. TECHNIQUE: MRI of the lumbar spine was obtained using routine sequences without contrast. FINDINGS: Last rib-bearing vertebra labeled T12. No bone marrow STIR signal abnormality. There is disc desiccation at L3-4, L5-S1 and L1-2 levels. The alignment is normal. The conus medullaris ends at superior endplate of L1 with normal signal. T12-L1: No disc herniation. No neuroforamina stenosis. L1-2: Broad-based disc bulging. No central spinal canal stenosis or neuroforamina stenosis. L2-3: There is broad-based disc bulging. Reduced AP diameter of the thecal sac. Facet joint hypertrophy. No compression upon neural elements. L3-4: Broad-based disc bulging. Facet joint and ligamentum flavum hypertrophy. Reduced AP diameter of the thecal sac and the neural foramina. L4-5: Broad-based disc bulging. Facet joint hypertrophy. Reduced AP diameter of the thecal sac and neuroforamina, more accentuated on the left side. L5-S1: Broad-based bulging. Facet joint hypertrophy. No central spinal canal stenosis. Bilateral neuroforamina stenosis. No prevertebral compartment hematoma, mass or fluid collection. MR/MR lumbar spine wo con IMPRESSION: Multilevel lumbar spondylosis more conspicuous at L5-S1 and to a lesser extent L3-4 and L4-5 levels likely encroaching the left-sided exiting nerve roots Electronically signed by: Talon Madrigal MD 08/08/2024 07:57 AM EST
--- OUTSIDE RECORDS SUMMARY | 2024-08-07 19:10 | XMS_ITS | Patient Health Record ---
Demographics Address [address] [place] [address] Mobile Preferred Language en Marital Status Unknown Taoist Affiliation Unknown Race or [place] Additional Race(s) [place] Ethnic Group or Author Organization [facility] Address [address] [place] [address] Care Team Providers Care Circular Gang Saw Operator Name Role Phone Ella OTERO, Jojo Primary Care Provider Tremayne Andino Unavailable [phone] ALLERGIES No Known Allergies REASON FOR REFERRAL No Information MEDICATIONS Medication SIG (Take, Route, Frequency, Duration) Notes Start Date End Date Status hydrOXYzine HCl 25 MG 1 tablet at bedtim e as needed Orally Once a day for 30 day(s) Active metFORMIN HCl ER 500 MG TAKE 1 TABLET BY MOUTH EVERY DAY WITH DINNER Oral for 30 Active Celecoxib 100 MG Oral for 30 A ctive Cyclobenzaprine HCl 5 MG Oral for 30 Active Mometasone Furoate 0.1 % APPLY A THIN LA NUBIA TO AFFECTED AREA(S) EVERY DAY DIRECTED External for 30 Active Vitamin B6 100 MG 1 tablet Orally Once a day for 30 day(s) Active FreeStyle Lite Test - USE TO TEST BLOOD SUGAR EVERY DAY DIRECTED Diagnosis Unavailable In Vitro for 50 Active Atorvastatin Calcium 40 MG 1 tablet Oral ly Once a day for 30 day(s) Active Escitalopram Oxalate 10 MG TAKE 1 TABLET BY MOUTH EVERY DAY Oral for 30 Not-Taking Lisinopril 10 MG Oral for 30 A ctive Omeprazole 20 MG Oral for 30 N ot-Taking Triamcinolone Acetonide 0.1 % External for 14 Active IMMUNIZATIONS Vaccine Route Administration Date Status Comme nts Influenza Unknown 02/05/2021 Administered Influenza Unknown 06/03/2022 Refused SOCIAL HISTORY Tobacco Use: Social History Observation Description Date Details (start date - stop date) Never Smoker NA - NA Sex Assigned At : Social History Observation Description Sex Assigned At Unknown Tobacco Use/Smoking Question Answer Notes Patient is a nonsmoker Alcohol Screen Question Answer Notes Did you have a drink containing alcohol in the p ast year? No Points 0 Interpretation Negative PROBLEMS Problem Type ICD Code Onset Dates Problem Status W/U Status Risk SNOMED Code Notes Problem Esophageal reflux (K21.9) Active confirmed Esophageal reflux (426179452) Problem Epigastric abdominal pain (R10.13) Active confirmed 48646467 Problem Encounter for screening for malignant neoplasm of colon (Z12.11) Active confirmed Screening for malignant neoplasm of colon (844762888) Problem Encounter for other preprocedural examination (Z01.818) Active confirmed Pre-procedure evaluation check (073288912) Problem Gastritis (K29.70) Active confirmed Gas tritis (8583742) Problem Right upper quadrant abdominal pain (R10.11) Active confirmed 785796759 Problem Gastroesophageal reflux disease, unspecified whether esophagitis present (K21.9) Active confirmed 956165464 PLAN OF TREATMENT Pending Test Test Name Order Date US ABD 06/03/2022 Future Test Test Name Order Date COLONOSCOPY 12/03/2021 UPPER GI ENDOSCOPY 06/03/2022 Insurance Providers Payer Name Payer Address Payer Phone Subscriber Number Group Number Insured Name Patient Relationship to Insured Coverage Start Date Coverage End Date [facility] [address] [place] [address] [id number] MATT SOL Self - patient is the insured [facility] [address] [place] [address] [id number] MATT SOL Self - patient is the insured MEDICAL (GENERAL) HISTORY Medical History History ICD Code Back pain Hypertension Denies MT,CVA,Lung disease,renal disease Hyperlipidemia Anxiety NIDDM Screening colonoscopy in Feb with only a small hyperplastic polyp removed Surgical History Surgery Date(Month/Year) Right knee ACL
--- OUTSIDE RECORDS SUMMARY | 2024-08-07 19:10 | XMS_ITS | Encounter Summary ---
Author Organization [employer] Address [address] [place] [address] Care Team Providers Care Engineering Agent Name Role Phone Jojo Jaramillo MD Primary Care Provider [phone] Reason for Visit * Reason Comments Med Refill Encounter Details Date Type Department Care Team ([facility] st Contact Info) Description 06/24/2023 Refill [facility] MEDICINE [address] [place], [place] [phone] Name, MD Gabe [address] [place], [place] [phone] Social History Tobacco Use Types Packs/Day Years Used Date Smoking Tobacco: Former Cigarettes Depression Answer Date Recorded Patient Health Questionnaire-9 Score 5 08/26/2022 Housing Stability Answer Date Recorded What is your housing situation today? I have josee urena 03/26/[address] you li ve. Do you have problems with any of the following? None of the above 03/26/2023 Food Insecurity Answer Date Recorded Within the past 12 months, y ou worried that your food would run out before you got money to buy more: Never True 03/26/2023 Within the past 12 months,th e food you bought just didn't last and you didn't have enough money to get more: Never True Transportation Answer Date Recorded In the past 12 months, has l ack of transportation kept you from medical appts, meetings, work or from getting things needed for daily living? No 03/26/2023 Utilities Answer Date Recorded In the past 12 months, has t he electric, gas, oil or water company threatened to shut off services in your home? No 03/26/2023 Depression Answer Date Recorded Patient Health Questionnaire-2 Score 0 08/26/2022 Sex and Gender Information Value Date Recorded Sex Assigned at Male 04/06/2022 10:19 AM EDT Legal Sex Male 10:19 AM EDT Gender Identity Male 04/06/2022 10:19 AM EDT Sexual Orientation Straight 04/06/2022 10 :19 AM EDT documented as of this encounter Plan of Treatment Upcoming Encounters Date Type Department Care Team (Late st Contact Info) Description 08/17/2024 3:00 PM EDT Clinical Support [facility] MED & PEDS [address] [place] [address] Santa Wade, DAGOBERTO [address] [place] [address] documented as of this encounter Visit Diagnoses Not on filedocumented in this encounter Additional Health Concerns Assessment Noted Time PHQ-9 Depression Total Score: 5 08/27/19 23 9:15 AM EDT documented as of this encounter Care Teams Engineering Agent Relationship Specialty Start Date End Date Jojo Jaramillo MD [address] [place] [address] PCP - General Family Medicine 12/19/18 documented as of this encounter
--- OUTSIDE RECORDS SUMMARY | 2024-08-07 19:11 | XMS_ITS | Encounter Summary ---
Author Organization [employer] Address [address] [place] [address] Care Team Providers Care Manager User Experience Name Role Phone Jojo Jaramillo MD Primary Care Provider Encounter Details Date Type Department Care Team (Late st Contact Info) Description 04/21/2023 Orders Only [facility] MEDICINE [address] [place], [place] [phone] Jojo Jaramillo MD [address] [place], [place] [phone] Psoriasis (Primary Dx); Psoriasiform dermatitis Social History Tobacco Use Types Packs/Day Years [...] Description 08/17/2024 3:00 PM EDT Clinical Support [facility] MED & PEDS [address] [place] [address] Santa Wade, RN [address] [place] [address] documented as of this encounter Visit Diagnoses Diagnosis Psoriasis- Primary Other psoriasis Psoriasiform dermatitis Other psoriasis and similar disorders documented in this encounter Additional Health Concerns Assessment Noted Time PHQ-9 Depression Total Score: 5 08/27/19 23 9:15 AM EDT documented as of this encounter Care Teams Manager User Experience Relationship Specialty Start Date End Date Jojo Jaramillo MD [address] [place] [id number] PCP - General Family Medicine 12/19/18 documented as of this encounter
--- OUTSIDE RECORDS SUMMARY | 2024-08-07 19:11 | XMS_ITS | Encounter Summary ---
Author Organization [employer] Address [address] [place] [address] Care Team Providers Care Field Engineer Name Role Phone Jojo Jaramillo MD Primary Care Provider [phone] Reason for Visit * Reason Comments Med Refill Encounter Details Date Type Department Care Team ([facility] st Contact Info) Description 08/07/2024 Refill [facility] MED[facility]INE [address] [place], [place] [phone] Jojo Jaramillo MD [address] [place], [place] [phone] Social History Tobacco Use Types Packs/Day Years Used Date Smoking Tobacco: Some Days Cigarettes Passive Smoke Exposure: Current Smokeless Tobacco: Never Alcohol Answer Date Recorded Frequency of Alcohol Consumption Not on file 04/10/2024 Average Number of Drinks Not on file 024 Frequency of Binge Drinking Not on file 09/2023 Score 0 04/10/2024 Depression Answer Date Recorded Patient Health Questionnaire-9 Score 5 04/16/2024 Patient Health Questionnaire-9 Score 5 04/16/2024 Last PHQ-9: Questionnaire Data Not on file 1 06/16/2023 Housing Stability Answer Date Recorded What is your housing situation today? I have josee urena 04/10/[address] you li ve. Do you have problems with any of the following? None of the above 04/10/2024 Food Insecurity Answer Date Recorded Within the past 12 months, y ou worried that your food would run out before you got money to buy more: Never True 04/10/2024 Within the past 12 months,th e food you bought just didn't last and you didn't have enough money to get more: Never True 09/2023 Transportation Answer Date Recorded In the past 12 months, has l ack of transportation kept you from medical appts, meetings, work or from getting things needed for daily living? No 04/10/2024 Utilities Answer Date Recorded In the past 12 months, has t he electric, gas, oil or water company threatened to shut off services in your home? No 04/10/2024 Depression Answer Date Recorded Patient Health Questionnaire-2 Score 2 04/16/2024 Internet Access Answer Date Recorded Internet Access Q1 Yes 04/10/2024 Internet Access Q2 Not on file 04/10/2024 Sex and Gender Information Value Date Recorded Sex Assigned at Male 04/06/2022 10:19 AM EDT Legal Sex Male 10:19 AM EDT Gender Identity Male 04/06/2022 10:19 AM EDT Sexual Orientation Straight 04/06/2022 10 :19 AM EDT documented as of this encounter Plan of Treatment Upcoming Encounters Date Type Department Care Team (Late st Contact Info) Description 08/17/2024 3:00 PM EDT Clinical Support [facility] MED & PEDS [address] [place] [address] Santa Wade, RN [address] [place] [address] documented as of this encounter Visit Diagnoses Not on filedocumented in this encounter Additional Health Concerns Assessment Noted Time PHQ-9 Depression Total Score: 5 04/16/20 24 7:02 AM EST documented as of this encounter Care Teams Field Engineer Relationship Specialty Start Date End Date Jojo Jaramillo MD [address] [place] [address] PCP - General Family Medicine 12/19/18 documented as of this encounter
--- OUTSIDE RECORDS SUMMARY | 2024-08-07 19:11 | XMS_ITS | Encounter Summary ---
Author Organization [employer] Address [address] 7[address] [place] [address] Care Team Providers Care Drying And Winding Supervisor Name Role Phone Jojo Jaramillo MD Primary Care Provider [phone] Reason for Visit * Reason Comments Med Refill Encounter Details Date Type Department Care Team (Late Contact Info) Description 12/06/2022 Refill [facility] MEDICINE [address] [place], [place] [phone] Dima Castillo MD [address] [place] [address] Social History Tobacco Use Types Packs/Day Years Used Date Smoking Tobacco: Former Cigarettes Depression Answer Date Recorded Patient Health Questionnaire-9 Score 5 08/26/2022 Depression Answer Date Recorded Patient Health Questionnaire-2 Score 0 08/26/2022 Sex and Gender Information Value Date Recorded Sex Assigned at Male 04/06/2022 10:19 AM EDT Legal Sex Male 10:19 AM EDT Gender Identity Male 04/06/2022 10:19 AM EDT Sexual Orientation Straight 04/06/2022 10 :19 AM EDT COVID-19 Exposure Response Date Recorded In the last 10 days, have yo u been in contact with someone who was confirmed or suspected to have Coronavirus/COVID-19? No / Unsure 11/06/2022 9:53 AM EDT documented as of this encounter Plan of Treatment Upcoming Encounters Date Type Department Care Team (Late Contact Info) Description 08/17/2024 3:00 PM EDT Clinical Support [facility] CH[facility] MED & PEDS [address] [place], [place] [phone] Santa Wade RN [address] [place], [place] [phone] documented as of this encounter Visit Diagnoses Not on filedocumented in this encounter Additional Health Concerns Assessment Noted Time PHQ-9 Depression Total Score: 5 08/27/19 23 9:15 AM EDT documented as of this encounter Care Teams Drying And Winding Supervisor Relationship Specialty Start Date End Date Jojo Jaramillo MD [address] [place] [address] PCP - General Family Medicine 12/19/18 documented as of this encounter
--- OUTSIDE RECORDS SUMMARY | 2024-08-07 19:11 | XMS_ITS | Encounter Summary ---
Author Organization [employer] Address [address] [facility] [address] 7[address] [place] [address] Care Team Providers Care Meat Hanger Name Role Phone Jojo Jaramillo MD Primary Care Provider [phone] Reason for Referral * Imaging (Routine) - Authorized Specialty Diagnoses / Procedures Referred By Diamante de souza Referred To Contact Radiology Diagnoses Chronic low back pain, unspecified back pain laterality, unspecified whether sciatica present Procedures MR Lumbar Spine w/o Contrast Jojo Jaramillo MD [address] [place] [address] Phone: tel: fax: [address] Phone: tel: fax: Referral ID Status Reason Start Date Expiration Date V isits Requested Visits Authorized [id number] Authorized 07/19/2024 07/19/2025 1 1 Encounter Details Date Type Department Care Team (Late st Contact Info) Description 07/11/2024 3:00 PM EST Office Visit [facility] MEDICINE [address] [place], [place] [phone] Jojo Jaramillo MD [address] [place], [place] [phone] Essential hypertension (Primary Dx); Type 2 diabetes mellitus without complication, unspecified whether mcc insulin use (CMS/HCC); Dyslipidemia; Mood disorder (CMS/HCC); Dietary counseling; Exercise counseling; Overweight; Other chronic pain; Chronic low back pain, unspecified back pain laterality, unspecified whether sciatica present Social History Tobacco Use Types Packs/Day Years [...] AM EDT documented as of this encounter Last Filed Vital Signs Vital Sign Reading Time Taken Comments Blood Pressure 152/93 07/11/2024 3:18 PM EST Pulse 88 07/11/2024 3:18 PM EST Temperature 36.5 ??C (97.7 ??F) 07/11/2024 3:18 PM ES T Respiratory Rate 14 07/11/2024 3:18 PM EST Oxygen Saturation 98% 07/11/2024 3:18 PM EST Inhaled Oxygen Concentration - - Weight 81.6 kg (180 lb) 07/11/2024 3:18 PM EST Height - - Body Mass Index 27.37 06/21/2024 3:19 PM EST documented in this encounter Progress Notes * Jojo Jaramillo MD - 07/11/2024 3:00 PM EST ubjective Tomy Knutson is a 48 y.o. male who has diabetes mellitus type 2, hypertension, and GERD, andpatient presents for Pain. Background: Our last encounter was 04/10/2024. Pt's main concern is back pain and knee pain. Pt reported minimalimprovement from physical therapy. He also noted he was unable to receive his tramadol prescriptionbecause he needed prior authorization. He stated meloxicam was ineffective. He stated his BP is normal at home, systolic <130. He is still taking Lisinopril 20 mg daily. Interval history: Seen by Dr. Kelly, [facility], on 05/01/24. No diabetic retinopathy. Seen in the walk-in clinic on 06/21/24 for diffuse symptoms. Attributed to COVID and other viral illness. Elevated BP. Today: Pt reports he has been struggling with his mental health. Pt states he would prefer not taking tramadol. He cancelled appointment with NUT DEHYDRATOR OPERATOR nurse because his insurance require PA for tramadol. He was not aware that PA requires him to sign controlled substance treatment agreement and that he needs NUT DEHYDRATOR OPERATOR appointment for clonazepam as well. He states he does not want to take any medication that requireCST monitoring. He continues to suffer from back and leg pain. Patient reports difficulty walking and getting up from the bed. Patient tried physical therapy again in March and April 2024. He did not experienceany benefit. Sometimes the pain was worse. He has tried APAP, NSAIDs, COX2i, and gabapentin which give marginal relief. Reporting his pain level is very high everyday and reports his pain has him bedridden. He also notes his insurance has denied his request for an MRI twice. He feels miserable. Pt is not taking his BP medication because he can no longer find the will to do so. Review of Systems Constitutional: Negative for activity change, appetite change and fever. Respiratory: Negative for shortness of breath. Cardiovascular: Negative for chest pain. Objective Vitals: 07/11/24 1518 BP: (!) 152/93 Pulse: 88 Resp: 14 Temp: 97.7 ??F (36.5 ??C) TempSrc: Temporal SpO2: 98% Weight: 180 lb (81.6 kg) Physical Exam Constitutional: General: He is not in acute distress. Appearance: Normal appearance. He is not ill-appearing. HENT: Head: Normocephalic and atraumatic. Mouth/Throat: Mouth: Mucous membranes are moist. Eyes: Extraocular Movements: Extraocular movements intact. Pupils: Pupils are equal, round, and reactive to light. Cardiovascular: Rate and Rhythm: Normal rate and regular rhythm. Heart sounds: No murmur heard. Pulmonary: Effort: Pulmonary effort is normal. No respiratory distress. Breath sounds: Normal breath sounds. No wheezing or rhonchi. Skin: General: Skin is warm. Neurological: Mental Status: He is alert. Mental status is at baseline. Psychiatric: Mood and Affect: Mood normal. Results: Lab Results Component Value Date NA 141 08/26/2023 K 4.9 08/26/2023 CL 103 08/26/2023 CO2 27 08/26/2023 BUN 19 (H) 08/26/2023 CREATININE 1.18 08/26/2023 CRCLCALCPH 120.3 08/24/2023 EGFR >60 08/26/2023 GLUCOSE 172 (H) 08/26/2023 TOTALBILIRUB 0.5 08/26/2023 AST 25 08/26/2023 ALT 39 08/26/2023 TOTPROTEIN 7.5 08/26/2023 ALB 4.8 08/26/2023 ALP 65 08/26/2023 Lab Results Component Value Date TRIG 154 (H) 08/26/2023 CHOL 235 (H) 08/26/2023 LDLCHOLCAL 148 (H) 08/26/2023 HDL 57 08/26/2023 Lab Results Component Value Date HGBA1C 6.3 (A) 07/11/2024 MICROALBUR 6.0 08/26/2023 CREATUR 172.30 08/26/2023 MICROALBCREU 3.4 08/26/2023 Lab Results Component Value Date WBC 5.1 08/24/2023 HGB 15.8 08/24/2023 HCT 46.3 08/24/2023 PLT 174 08/24/2023 MCV 85.7 08/24/2023 The 10-year ASCVD risk score (Kit SHETH, et al., 2019) is: 21.1% Values used to calculate the score: Age: 48 years Sex: Male Is Non- : No Diabetic: Yes Tobacco smoker: Yes Systolic Blood Pressure: 152 mmHg Is BP treated: Yes HDL Cholesterol: 57 mg/dL Total Cholesterol: 235 mg/dL Screening and Health Care Maintenance: PHQ-2/9 Score: Patient Health Questionnaire-9 Score: 5 (04/16/2024 7:02 AM) Patient Health Questionnaire-2 Score: 2 (04/16/2024 7:02 AM) Thoughts that you would be better off or hurting yourself in some way: Not at all (04/16/2024 7:02 AM) DOTTIE-7 Score: DOTTIE-7 Total Score: 4 (04/16/2024 7:03 AM) Health Maintenance Due Topic Date Due Family Planning (PISQ) Never done Pneumococcal Vaccine: Pediatrics (0 to 5 Years) and At-Risk Patients (6 to 49) Years) (2 of 2 - PCV) 10/21/2013 Influenza Vaccine (1) 02/06/2024 COVID-19 Vaccine (3 - season) 2024 Diabetes: Foot Exam 06/22/2024 Lipid Panel 08/25/2024 Diabetes: Urine Protein Screening 08/25/2024 Assessment/Plan Problem List Items Addressed This Visit Chronic back pain - He has tried PT, injection treatment, and medications which have not provided adequate relief - X-ray in 2017 was unremarkable - He has completed another round of PT from Mar 2024 to Apr 2024, 6+ weeks - Patient has weakness and numbness of LE, especially on right side - he has tried APAP, NSAID, COX2i, gabapentin in the past - will prescribe for APAP for now since tramadol is not approved - will request MRI again Relevant Orders MR Lumbar Spine w/o Contrast Essential hypertension - Primary Goal BP < 140/90 per JNC-8, <130/80 per ACC/AHA, BP is not at goal -Continue Lisinopril 30 mg daily -Work on lifestyle modifications -Improve Medication adherence -Advised to continue checking home BP -f/u in 3 months - patient was referred to clinical medical assistant but he is not enthusiastic to go to the appointment Type 2 diabetes mellitus without complication ([facility]) - A1c 6.4% on 07/11/24, trending up from 5.8% on 01/18/24 -Continue Metformin 500 mg daily -Encouraged patient to improve medication. -Continue working on lifestyle modification Last eye exam: 05/01/24 at [facility]. No retinopathy Last foot exam: 06/22/23 Last lipid profile: 08/26/23 Last microalbumin test- 08/26/23 no microalbuminuria Follow up in 4-6 mo or prn Relevant Orders POCT glycosylated hemoglobin (Hgb A1c) (Completed) POCT glucose manually resulted (Completed) Dyslipidemia - current medication: atorvastatin 40 mg at bedtime - last lipid profile: 08/26/23 (without statin) - continue working on lifestyle modifications - recheck lipid profile and hepatic panel Mood disorder ([facility]) - Hx bipolar disorder - most recent behavioral health service provider: [facility] - recently being treated for anxiety and depression - most recently prescribed medications: clonazepam 1 mg tid; escitalopram 10 mg daily; trazodone 50mg at bedtime - patient dislikes the side effect of trazodone - agreed to continue clonazepam and escitalopram - referred to NUT DEHYDRATOR OPERATOR RN for clonazepam - patient declines behavioral health service because he speaks with our integrated behavioral health service clinician - discussed about trial of duloexetine (Cymbalta) since he has chronic pain and his pain may partlybe due to fibromyalgia. Chronic pain - consider evaluating and treating for fibromyalgia - patient has already tried acupuncture - patient has tried PT - recommended to reschedule appointment with NUT DEHYDRATOR OPERATOR nurse - recommended to consider trying duloexetine (Cymbalta) - consider participating group therapy Other Visit Diagnoses Dietary counseling Exercise counseling Overweight No Known Allergies Current Outpatient Medications Medication Instructions Acetaminophen 500 MG capsule Take one to two tablets as needed for fever or pain every 6 hours atorvastatin (LIPITOR) 40 mg, Oral, Daily betamethasone, augmented, (Diprolene) 0.05 % ointment APPLY TOPICALLY TO THE AFFECTED AREA(S) TWICEDAILY cholecalciferol (Vitamin D-3) 25 MCG (1000 UT) tablet 1 capsule, Oral clonazePAM (KlonoPIN) 1 MG tablet TAKE 1 TABLET BY MOUTH THREE TIMES DAILY IN THE MORNING, AT NOON,AND AT BEDTIME NEEDED FOR ANXIETY cyclobenzaprine (FLEXERIL) 5 mg, Oral, Daily PRN Diclofenac Sodium 1 % gel Apply to affected area once daily as needed for pain escitalopram (LEXAPRO) 20 mg, Oral, Once Daily fluticasone (Flonase) 50 MCG/ACT nasal spray INSTILL 1-2 SPRAYS IN EACH NOSTRIL ONCE DAILY NEEDED gabapentin (NEURONTIN) 300 mg, 2 times daily glucose blood (FREESTYLE LITE) test strip USE DIRECTED TO TEST BLOOD SUGAR TWICE DAILY NEEDED ketoconazole (NIZOral) 2 % cream APPLY TOPICALLY TO THE AFFECTED AREA(S) ONCE DAILY rehan ventilar la piel lisinopril 20 mg, Every morning meloxicam (Mobic) 7.5 MG tablet TAKE 1 TABLET BY MOUTH 1-2 TIMES PER DAY NEEDED FOR PAIN metFORMIN XR (Glucophage-XR) 500 MG 24 hr tablet TAKE 1 TABLET BY MOUTH EVERY DAY IN THE EVENING WITH A MEAL nicotine polacrilex (COMMIT) 2 mg, Mouth/Throat, As needed Pyridoxine HCl (Vitamin B6) 100 MG tablet Daily traMADol (ULTRAM) 50 mg, Oral, Every 12 hours PRN traZODone (Desyrel) 50 MG tablet TAKE 1/2 TABLET BY MOUTH EVERY DAY AT BEDTIME NEEDED FOR SLEEP TRUEplus Lancets [facility] Check blood sugar twice a day and as needed Follow-up: 4 months or sooner if any problem arises. Scribe Attestation: Aline Rodriguez, am serving as a scribe to document services personally performed by Jojo Jaramillo MD, based on the patient's response to questions by provider and provides statements to me. documented in this encounter Miscellaneous Notes * Assessment & Plan Note - Jojo Jaramillo MD - 07/19/2024 4:55 AM ESTAssociated Problem(s): Chronic back pain - He has tried PT, injection treatment, and medications which have not provided adequate relief - X-ray in 2017 was unremarkable - He has completed another round of PT from Mar 2024 to Apr 2024, 6+ weeks - Patient has weakness and numbness of LE, especially on right side - he has tried APAP, NSAID, COX2i, gabapentin in the past - will prescribe for APAP for now since tramadol is not approved - will request MRI again * Assessment & Plan Note - Jojo Jaramillo MD - 07/19/2024 4:53 AM ESTAssociated Problem(s): Chronic pain - consider evaluating and treating for fibromyalgia - patient has already tried acupuncture - patient has tried PT - recommended to reschedule appointment with NUT DEHYDRATOR OPERATOR nurse - recommended to consider trying duloexetine (Cymbalta) - consider participating group therapy * Assessment & Plan Note - Aline Gee MA - 07/11/2024 5:44 PM ESTAssociated Problem(s): Dyslipidemia - current medication: atorvastatin 40 mg at bedtime - last lipid profile: 08/26/23 (without statin) - continue working on lifestyle modifications - recheck lipid profile and hepatic panel * Assessment & Plan Note - Aline Gee MA - 07/11/2024 5:43 PM ESTAssociated Problem(s): Mood disorder (CMS/HCC) - Hx bipolar disorder - most recent behavioral health service provider: [facility] - recently being treated for anxiety and depression - most recently prescribed medications: clonazepam 1 mg tid; escitalopram 10 mg daily; trazodone 50mg at bedtime - patient dislikes the side effect of trazodone - agreed to continue clonazepam and escitalopram - referred to NUT DEHYDRATOR OPERATOR RN for clonazepam - patient declines behavioral health service because he speaks with our integrated behavioral health service clinician - discussed about trial of duloexetine (Cymbalta) since he has chronic pain and his pain may partlybe due to fibromyalgia. * Assessment & Plan Note - Aline Gee MA - 07/11/2024 5:43 PM ESTAssociated Problem(s): Type 2 diabetes mellitus without complication (CMS/HCC) - A1c 6.4% on 07/11/24, trending up from 5.8% on 01/18/24 -Continue Metformin 500 mg daily -Encouraged patient to improve medication. -Continue working on lifestyle modification Last eye exam: 05/01/24 at [facility]. No retinopathy Last foot exam: 06/22/23 Last lipid profile: 08/26/23 Last microalbumin test- 08/26/23 no microalbuminuria Follow up in 4-6 mo or prn * Assessment & Plan Note - Aline Gee MA - 07/11/2024 5:43 PM ESTAssociated Problem(s): Essential hypertension Goal BP < 140/90 per JNC-8, <130/80 per ACC/AHA, BP is not at goal -Continue Lisinopril 30 mg daily -Work on lifestyle modifications -Improve Medication adherence -Advised to continue checking home BP -f/u in 3 months - patient was referred to clinical medical assistant but he is not enthusiastic to go to the appointment documented in this encounter Plan of Treatment Upcoming Encounters Date Type Department Care Team (Late st Contact Info) Description 08/17/2024 3:00 PM EDT Clinical Support [facility] MED & PEDS [address] [facility] [place] [address] Santa Wade, RN [address] [facility] [place] [address] Scheduled Orders Name Type Priority Associated Diagnoses Orde r Schedule MR Lumbar Spine w/o Contrast Imaging Routine Chronic low back pain, unspecified back pain laterality, unspecified whether sciatica present Expected: 07/19/2024, Expires: 07/19/2025 documented as of this encounter Procedures Procedure Name Priority Date/Time Associated Diagnosis Comments POCT GLYCOSYLATED HEMOGLOBIN (HGB A1C) Routine 07/11/2024 3:21 PM EST Type 2 diabetes mellitus without complication, unspecified 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 treater insulin use ([facility]) POCT GLUCOSE Routine 07/11/2024 3:20 PM EST Type 2 diabetes mellitus without complication, unspecified 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 treater insulin use ([facility]) documented in this encounter Results * (ABNORMAL) POCT glycosylated hemoglobin (Hgb A1c) (07/11/2024 3:21 PM EST) Hemoglobin A1C 6.3(A) 4.0 - 6.0 % QC Media Lot # [id number] Lot# Expiration Date Blood Capillary blood specimen / Unknown 07/11/2024 3:21 PM EST us Jojo Jaramillo MD POINT OF CARE TEST ENTER/EDIT OR DERABLES Final Result * POCT glucose manually resulted (07/11/2024 3:20 PM EST) Glucose Blood, POC 137 60 - 200 mg/dL QC Media Lot # [id number] Lot# Expiration Date 827 Blood Capillary blood specimen / Unknown 07/11/2024 3:20 PM EST us Jojo Jaramillo MD POINT OF CARE TEST ENTER/EDIT OR DERABLES Final Result documented in this encounter Visit Diagnoses Diagnosis Essential hypertension- Primary Unspecified essential hypertension Type 2 diabetes mellitus without complication, unspecified whether mcc insulin use ([facility]) Dyslipidemia Other and unspecified hyperlipidemia Mood disorder ([facility]) Unspecified episodic mood disorder Dietary counseling Dietary surveillance and counseling Exercise counseling Overweight Other chronic pain Chronic low back pain, unspecified back pain laterality, unspecified whether sciatica present documented in this encounter Additional Health Concerns Assessment Noted Time PHQ-9 Depression Total Score: 5 04/16/20 24 7:02 AM EST documented as of this encounter Care Teams Meat Hanger Relationship Specialty Start Date End Date Jojo Jaramillo MD [address] [place] [address] PCP - General Family Medicine 12/19/18 documented as of this encounter
--- OUTSIDE RECORDS SUMMARY | 2024-08-07 19:11 | XMS_ITS | Encounter Summary ---
Author Organization [employer] Address [address] [place] [address] Care Team Providers Care Trigonometry Teacher Name Role Phone Jojo Jaramillo MD Primary Care Provider [phone] Encounter Details Date Type Department Care Team (Latest Contact Info) Description 03/27/2019 Abstract [facility] CONVERSIONS Dental, Provider, DDS Social History Tobacco Use Types Packs/Day Years Used Date Smoking Tobacco: Never Assessed Sex and Gender Information Value Date Recorded Sex Assigned at Male 04/06/2022 10:19 AM EDT Legal Sex Male 10:19 AM EDT Gender Identity Male 04/06/2022 10:19 AM EDT Sexual Orientation Straight 04/06/2022 10 :19 AM EDT documented as of this encounter Plan of Treatment Upcoming Encounters Date Type Department Care Team (Late st Contact Info) Description 08/17/2024 3:00 PM EDT Clinical Support [facility] MED & PEDS [address] [place] [address] Santa Wade, RN [address] [place] [address] documented as of this encounter Visit Diagnoses Not on filedocumented in this encounter Care Teams Trigonometry Teacher Relationship Specialty Start Date End Date Jojo Jaramillo MD [address] [place] [id number] PCP - General Family Medicine 12/19/18 documented as of this encounter
--- OUTSIDE RECORDS SUMMARY | 2024-08-07 19:11 | XMS_ITS | Encounter Summary ---
Author Organization [employer] Address [address] [place] [address] Care Team Providers Care Biophysics Teacher Name Role Phone Jojo Jaramillo MD Primary Care Provider [phone] Encounter Details Date Type Department Care Team (Late st Contact Info) Description 10/18/2023 Orders Only [facility] [address] [place], [place] [phone] Jojo Jaramillo MD [address] [place], [place] [phone] Social History Tobacco Use Types Packs/Day Years Used Date Smoking Tobacco: Some Days Cigarettes Smokeless Tobacco: Never Depression Answer Date Recorded Patient Health Questionnaire-9 Score 5 10/12/2023 Patient Health Questionnaire-9 Score 5 10/12/2023 Last PHQ-9: Questionnaire Data Not on file 0 10/12/2023 Housing Stability Answer Date Recorded What is [...] Date Recorded Patient Health Questionnaire-2 Score 2 10/12/2023 Sex and Gender Information Value Date Recorded Sex Assigned at Male 04/06/2022 10:19 AM EDT Legal Sex Male 10:19 AM EDT Gender Identity Male 04/06/2022 10:19 AM EDT Sexual Orientation Straight 04/06/2022 10 :19 AM EDT documented as of this encounter Plan of Treatment Upcoming Encounters Date Type Department Care Team (Late st Contact Info) Description 08/17/2024 3:00 PM EDT Clinical Support [facility] MED & PEDS [address] [place] [address] Santa Wade, DAGOBERTO [address] [place] [address] documented as of this encounter Visit Diagnoses Not on filedocumented in this encounter Additional Health Concerns Assessment Noted Time PHQ-9 Depression Total Score: 5 10/12/19 24 10:50 AM EDT documented as of this encounter Care Teams Biophysics Teacher Relationship Specialty Start Date End Date Jojo Jaramillo MD [address] [place] [address] PCP - General Family Medicine 12/19/18 documented as of this encounter
--- OUTSIDE RECORDS SUMMARY | 2024-08-07 19:11 | XMS_ITS | Encounter Summary ---
Author Organization [employer] Address [address] [facility] 7[address] [place] [address] Care Team Providers Care Freight Rate Clerk Name Role Phone Jojo Jaramillo MD Primary Care Provider [phone] Encounter Details Date Type Department Care Team (Late st Contact Info) Description 10/09/2022 Orders Only [facility] [address] [place], [place] [phone] Norma Ram LPN Social History Tobacco Use Types Packs/Day Years [...] Description 08/17/2024 3:00 PM EDT Clinical Support [facility] [address] [place] [address] Santa Wade RN [address] [place] [address] documented as of this encounter Visit Diagnoses Not on filedocumented in this encounter Additional Health Concerns Assessment Noted Time PHQ-9 Depression Total Score: 5 08/27/19 23 9:15 AM EDT documented as of this encounter Care Teams Freight Rate Clerk Relationship Specialty Start Date End Date Jojo Jaramillo MD [address] [place] [id number] PCP - General Family Medicine 12/19/18 documented as of this encounter
--- OUTSIDE RECORDS SUMMARY | 2024-08-07 19:11 | XMS_ITS | Encounter Summary ---
Author Organization [employer] Address [address] [place] [address] Care Team Providers Care Driver Utility Worker Name Role Phone Jojo Jaramillo MD Primary Care Provider [phone] Encounter Details Date Type Department Care Team (Latest Contact Info) Description 07/11/2024 Travel Social History Tobacco Use Types Packs/Day Years [...] Description 08/17/2024 3:00 PM EDT Clinical Support [facility] [address] [place] [address] Santa Wade, RN [address] [place] [address] documented as of this encounter Visit Diagnoses Not on filedocumented in this encounter Additional Health Concerns Assessment Noted Time PHQ-9 Depression Total Score: 5 04/16/20 24 7:02 AM EST documented as of this encounter Care Teams Driver Utility Worker Relationship Specialty Start Date End Date Jojo Jaramillo MD [address] [place] [address] PCP - General Family Medicine 12/19/18 documented as of this encounter
--- OUTSIDE RECORDS SUMMARY | 2024-08-07 19:11 | XMS_ITS | Encounter Summary ---
Author Organization [employer] Address [address] [place] [address] Care Team Providers Care Descriptive Catalog Librarian Name Role Phone Jojo Jaramillo MD Primary Care Provider [phone] Encounter Details Date Type Department Care Team (Late Contact Info) Description 07/06/2022 Orders Only [facility] [address] [place] [address] Aline Echevarria LPN Social History Tobacco Use Types Packs/Day [...] Description 08/17/2024 3:00 PM EDT Clinical Support [facility] [address] [place] [address] Santa Wade, DAGOBERTO [address] [place] [address] documented as of this encounter Procedures Procedure Name Priority Date/Time Associated Diagnosis Comments HEMATOXYLIN AND EOSIN STAIN Routine 07/20/2022 11:21 AM EST GLUCOSE, WHOLE BLOOD Routine 07/20/2022 10:57 AM EST documented in this encounter Results * Hematoxylin and Eosin Stain (07/20/2022 11:21 AM EST) 07/20/2022 11:2 1 AM EST 07/20/2022 12:09 PM EST Narrative [facility] - 07/21/2022 4:07 PM EST ----- ------- Name: Tomy Betancourt ?Age/Sex: 46/M ? : 1975 Unit#: [id number] ?? Attend Dr: Tremayne Pandey ?Re07/20/22 ?Status: DEP SDC ? Location: HO.SSS ?Disch: ? ----- ------- SPEC : [id number] ?RECD: 07/20/22-1209 ? STATUS: ??SOUT ? REQ NUM: [id number] ? ANGELINA: 07/20/22-1121 ? SUBM DR: Tremayne Pandey ? ENTERED: ??07/20/22-5 ?SP TYPE: Surgical ? OTHR DR: Jojo Jaramillo MD ? ORDERED: ??HE Stain/3, Gross Micro L4, IHC, H. pylori ? Diagnosis ?? A. ??Gastric antrum, biopsy: ??Gastric antral mucosa with reactive changes, focal ectatic ?? vessels, and minimal chronic inactive gastritis; negative for H pylori, intestinal ?? metaplasia and dysplasia. ?Clinical History Pre-Op Dx: ??Epigastric pain, reflux disease Post-Op Dx: Gastritis, hiatal hernia ?Microscopic Description Microscopic sections reviewed.? Immunohistochemical stain for H. pylori is negative with appropriate control. ? Material Received ?? Gastric antrum bx's ? Gross Description Received in formalin labeled Gastric antrum bx's are three glistening, semitranslucent, soft, patricia-pink, irregular tissue fragments, ranging from 0.25 to 0.35 cm. in greatest dimension, which are submitted in toto in a single cassette labeled A. CEDS Special studies ordered and performed: immunostain for H. pylori on A1. Copies To: ?? Jojo Jaramillo MD ?? [address] ?? [place] [address] ? Tremayne Pandey ?? [address] [place] [address] [address] ?? [place] [address] ?? [phone] ? CONTINUED ON NEXT PAGE ----- ------- Name: Tomy Betancourt ?Age/Sex: 46/M ? : 1975 Unit#: [id number] ?? Attend Dr: Tremayne Pandey ?Re07/20/22 ?Status: DEP SDC ? Location: HO.SSS ?Disch: ? ----- ------- SPEC : [id number] ?RECD: 07/20/22 ? STATUS: ??SOUT ? REQ NUM: [id number] ? ANGELINA: 07/20/22 ? SUBM DR: Tremayne Pandey ? ENTERED: ??07/20/22 ?SP TYPE: Surgical ? OTHR DR: Jojo Jaramillo MD ? ORDERED: ??HE Stain/3, Gross Micro L4, IHC, H. pylori ? ----- ------- Signed (signature on file) Chanel Rosa 07/21/221606 ? ----- ------- ? END OF REPORT ? [facility] External Provider LAB BLO OD ORDERABLES Final Result Performing Organization Address [facility] Co de Phone Number [facility] [address] [place], [place] [phone] * (ABNORMAL) GLUCOSE, WHOLE BLOOD (07/20/2022 10:57 AM EST) Glucose, Whole Blood 129(H) 60 - 115 mg/dL [facility] Comment:METER #: [id number] 07/20/2022 10:5 7 AM EST 07/20/2022 11:00 AM EST [facility] External Provider LAB BLO OD ORDERABLES Final Result Performing Organization Address [facility] Co de Phone Number [facility] [address] [place] [address] [phone] documented in this encounter Visit Diagnoses Not on filedocumented in this encounter Care Teams Descriptive Catalog Librarian Relationship Specialty Start Date End Date Jojo Jaramillo MD [address] [place] [id number] PCP - General Family Medicine 12/19/18 documented as of this encounter
--- OUTSIDE RECORDS SUMMARY | 2024-08-07 19:11 | XMS_ITS | Encounter Summary ---
Author Organization [employer] Address [address] [facility] 7t [place] [address] Care Team Providers Care Community Health Educator Name Role Phone Jojo Jaramillo MD Primary Care Provider [phone] Encounter Details Date Type Department Care Team (Late Contact Info) Description 12/17/2022 Abstract [facility] [address] [place], [place] [phone] Jojo Jaramillo MD [address] [place], [place] [phone] Social History Tobacco Use Types Packs/Day Years [...] suspected to have Coronavirus/COVID-19? No / Unsure 12/15/2022 9:30 AM EDT documented as of this encounter Plan of Treatment Upcoming Encounters Date Type Department Care Team (Late Contact Info) Description 08/17/2024 3:00 PM EDT Clinical Support [facility] [address] [place] [address] Santa Wade, RN [address] [place], [place] [phone] documented as of this encounter Procedures Procedure Name Priority Date/Time Associated Diagnosis Comments COLONOSCOPY Routine 03/03/2022 documented in this encounter Results * Colonoscopy (03/03/2022) Colonoscopy Normal Normal 03/03/2022 [facility] Pcp HEALTH MAINTENANCE Edited Result - Final documented in this encounter Visit Diagnoses Not on filedocumented in this encounter Additional Health Concerns Assessment Noted Time PHQ-9 Depression Total Score: 5 08/27/19 23 9:15 AM EDT documented as of this encounter Care Teams Community Health Educator Relationship Specialty Start Date End Date Jojo Jaramillo MD [address] [place] [address] PCP - General Family Medicine 12/19/18 documented as of this encounter
--- OUTSIDE RECORDS SUMMARY | 2024-08-07 19:11 | XMS_ITS | Encounter Summary ---
Author Organization [employer] Address [address] [place] [address] Care Team Providers Care Bark Press Operator Name Role Phone Jojo Jaramillo MD Primary Care Provider [phone] Encounter Details Date Type Department Care Team (Late st Contact Info) Description 01/27/[address] [facility] MEDICINE [address] [place], [place] [phone] Jojo Jaramillo MD [address] [place], [place] [phone] Social History Tobacco Use Types Packs/Day Years Used Date Smoking Tobacco: Some Days Cigarettes Smokeless Tobacco: Never Depression Answer Date Recorded Patient Health Questionnaire-9 Score 19 01/18/2024 Patient Health Questionnaire-9 Score 19 01/18/2024 Last PHQ-9: Questionnaire Data Not on file 0 01/18/2024 Housing Stability Answer Date Recorded What is [...] Answer Date Recorded Patient Health Questionnaire-2 Score 6 01/18/2024 Sex and Gender Information Value Date Recorded Sex Assigned at Male 04/06/2022 10:19 AM EDT Legal Sex Male 10:19 AM EDT Gender Identity Male 04/06/2022 10:19 AM EDT Sexual Orientation Straight 04/06/2022 10 :19 AM EDT documented as of this encounter Plan of Treatment Upcoming Encounters Date Type Department Care Team (Late st Contact Info) Description 08/17/2024 3:00 PM EDT Clinical Support [facility] [address] [place] [address] Santa Wade, DAGOBERTO [address] [place] [address] documented as of this encounter Visit Diagnoses Not on filedocumented in this encounter Additional Health Concerns Assessment Noted Time PHQ-9 Depression Total Score: 19 024 10:43 AM EDT documented as of this encounter Care Teams Bark Press Operator Relationship Specialty Start Date End Date Jojo Jaramillo MD [address] [place] [address] PCP - General Family Medicine 12/19/18 documented as of this encounter
--- OUTSIDE RECORDS SUMMARY | 2024-08-07 19:11 | XMS_ITS | Clinical Summary ---
Author Organization [employer] Address [address] [place] [address] Care Team Providers Care Manpower Development Manager Name Role Phone Jojo Jaramillo MD Primary Care Provider [phone] Allergies No known active allergies Medications cholecalciferol (Vitamin D-3) 25 MCG (1000 UT) tablet Take 1 capsule by mouth. 09/06/19 21 Active Pyridoxine HCl (Vitamin B6) 100 MG tablet daily. 05/01/20 19 Active fluticasone (Flonase) 50 MCG/ACT nasal sprayIndications: Allergic rhinitis, unspecified seasonality, unspecified trigger INSTILL 1-2 SPRAYS IN EACH NOSTRIL ONCE DAILY NEEDED 16 g 2 11/12/19 23 Active Diclofenac Sodium 1 % gel Apply to affected area once daily as needed for pain 150 g 11 12/26/19 23 Active betamethasone, augmented, (Diprolene) 0.05 % ointmentIndicatio ns:Psoriasiform dermatitis,Psoria sis APPLY TOPICALLY TO THE AFFECTED AREA(S) TWICE DAILY 50 g 1 07/16/19 24 Active ketoconazole (NIZOral) 2 % cream APPLY TOPICALLY TO THE AFFECTED AREA(S) ONCE DAILY rehan ventilar la piel 30 g 3 07/05/19 24 Active atorvastatin (Lipitor) 40 MG tablet Take 1 tablet (40 mg) by mouth Once per day. 90 tablet 3 10/18/19 24 Active nicotine polacrilex (Commit) 2 MG lozenge Dissolve 1 lozenge (2 mg) in the mouth if needed for smoking cessation. 100 lozenge 11/23/19 24 Active cyclobenzaprine (Flexeril) 5 MG tablet TAKE 1 TABLET BY MOUTH EVERY DAY NEEDED 30 tablet 5 11/26/19 24 Active escitalopram (Lexapro) 20 MG tablet Take 1 tablet (20 mg) by mouth Once daily. 90 tablet 3 01/27/20 24 Active meloxicam (Mobic) 7.5 MG tablet TAKE 1 TABLET BY MOUTH 1-2 TIMES PER DAY NEEDED FOR PAIN 60 tablet 3 02/21/20 24 Active traMADol (Ultram) 50 MG tabletIndications :Arthralgia of both knees,Chronic midline low back pain, unspecified whether sciatica present Take 1 tablet (50 mg) by mouth every 12 (twelve) hours if needed for severe pain. 56 tablet 02/28/20 24 Active lisinopril 20 MG tablet Take 20 mg by mouth in the morning. 03/29/20 24 Active traZODone (Desyrel) 50 MG tablet TAKE 1/2 TABLET BY MOUTH EVERY DAY AT BEDTIME NEEDED FOR SLEEP 02/23/20 Active gabapentin (Neurontin) 300 MG capsule Take 300 mg by mouth 2 times daily. 04/03/20 24 Active Acetaminophen 500 MG capsule Take one to two tablets as needed for fever or pain every 6 hours 60 capsule 06/21/19 25 Active glucose blood (FREESTYLE LITE) test stripIndications: Type 2 diabetes mellitus without complications (CMS/HCC) USE DIRECTED TO TEST BLOOD SUGAR TWICE DAILY NEEDED 100 strip 11 07/07/19 25 Active metFORMIN XR (Glucophage-XR) 500 MG 24 hr tablet TAKE 1 TABLET BY MOUTH EVERY DAY IN THE EVENING WITH A MEAL 90 tablet 3 07/07/19 25 Active clonazePAM (KlonoPIN) 1 MG tablet TAKE 1 TABLET BY MOUTH THREE TIMES DAILY IN THE MORNING, AT NOON, AND AT BEDTIME NEEDED ANXIETY 90 tablet 08/08/19 Active TRUEplus Lancets 33G misc USE DIRECTED TO TEST BLOOD SUGAR TWICE DAILY NEEDED 100 each 11 08/08/19 25 Active TRUEplus Lancets 33G misc Check blood sugar twice a day and as needed 100 each 11 06/22/19 24 025 Discontinued clonazePAM (KlonoPIN) 1 MG tablet TAKE 1 TABLET BY MOUTH THREE TIMES DAILY IN THE MORNING, AT NOON, AND AT BEDTIME NEEDED FOR ANXIETY 90 tablet 07/07/19 25 025 Discontinued Active Problems Problem Noted Date Diagnosed Date Chronic pain 07/19/2024 Assessment & Plan (07/19/2024 4:53 AM EST): - consider evaluating and treating for fibromyalgia - patient has already tried acupuncture - patient has tried PT - recommended to reschedule appointment with MUSIC PRODUCER nurse - recommended to consider trying duloexetine (Cymbalta) - consider participating group therapy Dyslipidemia 01/21/2024 Assessment & Plan (07/11/2024 5:44 PM EST): - current medication: atorvastatin 40 mg at bedtime - last lipid profile: 08/26/23 (without statin) - continue working on lifestyle modifications - recheck lipid profile and hepatic panel Assessment & Plan (01/21/2024 3:40 PM EDT): - current medication: atorvastatin 40 mg at bedtime - last lipid profile: 08/26/23 (without statin) - continue working on lifestyle modifications - recheck lipid profile and hepatic panel Mood disorder 01/21/2024 Assessment & Plan (07/19/2024 4:50 AM EST): - Hx bipolar disorder - most recent behavioral health service provider: CARR[facility] - recently being treated for anxiety and depression - most recently prescribed medications: clonazepam 1 mg tid; escitalopram 10 mg daily; trazodone 50 mg at bedtime - patient dislikes the side effect of trazodone - agreed to continue clonazepam and escitalopram - referred to MUSIC PRODUCER RN for clonazepam - patient declines behavioral health service because he speaks with our integrated behavioral health service clinician - discussed about trial of duloexetine (Cymbalta) since he has chronic pain and his pain may partly be due to fibromyalgia. Assessment & Plan (01/21/2024 3:48 PM EDT): - Hx bipolar disorder - most recent behavioral health service provider: [facility] - recently being treated for anxiety and depression - most recently prescribed medications: clonazepam 1 mg tid; escitalopram 10 mg daily; trazodone 50 mg at bedtime - patient dislikes the side effect of trazodone - agreed to continue clonazepam and escitalopram - refer to MUSIC PRODUCER RN for clonazepam - patient declines behavioral health service because he speaks with our integrated behavioral health service clinician - reassess diagnosis History of kidney stones 01/21/2024 Bilateral leg pain 01/18/2024 Assessment & Plan (04/12/2024 8:42 PM EST): - will check inflammatory arthritis with lab - possible fibromyalgia - patient states that he has tried NSAIDs and APAP - patient has also tried PT and acupuncture - patient was seen by specialist for knee pain and declined the offer of steroid injection - patient does not want to see a specialist at this time and requests medication - agreed to prescribe tramadol 50 mg BID, which he reports he cannot get, needs authorization - schedule appointment with MUSIC PRODUCER nurse - been going to PT without much improvement Assessment & Plan (01/18/2024 4:07 PM EDT): - will check inflammatory arthritis with lab - possible fibromyalgia - patient states that he has tried NSAIDs and APAP - patient has also tried PT and acupuncture - patient was seen by specialist for knee pain and declined the offer of steroid injection - patient does not want to see a specialist at this time and requests medication - agreed to prescribe tramadol 50 mg BID - schedule appointment with MUSIC PRODUCER nurse Esophageal reflux 10/08/2023 Gastritis 10/08/2023 Ingrown toenail of both feet 09/15/2023 Assessment & Plan (10/12/2023 11:27 AM EDT): - patient was seen by all source collection manager recently Psoriasis 11/06/2022 Assessment & Plan (04/12/2024 8:43 PM EST): - was evaluated and treated by Dr. Aquino and Dr. Santos - he does not want to make a follow up appointment at this time Assessment & Plan (01/21/2024 3:42 PM EDT): - was evaluated and treated by Dr. Aquino and Dr. Santos - he does not want to make a follow up appointment at this time Assessment & Plan (10/12/2023 11:26 AM EDT): - was evaluated by [facility] [employer], Dr. Aquino - prescribed Betamethasone, which has been effective - upcoming appointment with Dr. Santos in Jul 2023 Assessment & Plan (06/27/2023 12:56 PM EST): - was evaluated by [employer], Dr. Aquino - prescribed Betamethasone, which has been effective - upcoming appointment with Dr. Santos in Jul 2023 Assessment & Plan (12/15/2022 10:52 AM EDT): - was evaluated by [employer], Dr. Aquino - prescribed Betamethasone, which has been effective Gastroesophageal reflux disease 08/26/2022 Assessment & Plan (01/18/2024 10:32 AM EDT): -Following with GIDr. Pandey, last seen 07/20/22. Abdominal Ultrasound on 07/07/22 was negative for gallstone. A benign calcified granuloma located in the right-hepatic lobe. Stable appearance since prior CT Scan. -EGD on 07/20/22 showed mild-gastritis and small Hiatal Hernia. Continue Omeprazole 20 mg bid -h-pylori & stool antigen test was negative in feb 2021; will repeat again -avoid NSAIDs, ETOH, and tobacco -consider evaluation for IBS Assessment & Plan (12/15/2022 10:49 AM EDT): -Following with GIDr. Pandey, last seen 07/20/22. Abdominal Ultrasound on 07/07/22 was negative for gallstone. A benign calcified granuloma located in the right-hepatic lobe. Stable appearance since prior CT Scan. -EGD on 07/20/22 showed mild-gastritis and small Hiatal Hernia. Continue Omeprazole 20 mg bid -h-pylori & stool antigen test was negative in feb 2021; will repeat again -avoid NSAIDs, ETOH, and tobacco -consider evaluation for IBS Assessment & Plan (08/26/2022 9:04 AM EDT): -Following with GIDr. Pandey, last seen 07/20/22. Abdominal Ultrasound on 07/07/22 was negative for gallstone. A benign calcified granuloma located in the right-hepatic lobe. Stable appearance since prior CT Scan. -EGD on 07/20/22 showed mild-gastritis and small Hiatal Hernia. Continue Omeprazole 20 mg bid -h-pylori & stool antigen test was negative in feb 2021; will repeat again -avoid NSAIDs, ETOH, and tobacco -consider evaluation for IBS Right upper quadrant pain 08/26/2022 Anxiety 08/26/2022 Assessment & Plan (04/16/2024 7:15 AM EST): -Previously connected with [facility] -GAD7 score 19 in Jan 2024; he declined to return to behavioral health service provider as he speaks with integrated behavioral health service at work and has copay for each visit -GAD7 score 4 today -continue escitalopram 10 mg daily -agreed to prescribe clonazepam 1 mg tid under MUSIC [employer]ODUCER agreement -reassess Dx Assessment & Plan (01/21/2024 3:50 PM EDT): -Previously connected with [facility] -GAD7 score 19 today; he declines to return to behavioral health service provider as he speaks with integrated behavioral health service at work and has copay for each visit -continue escitalopram 10 mg daily -agreed to prescribe clonazepam 1 mg tid under MUSIC PRODUCER agreement -reassess Dx Assessment & Plan (10/12/2023 11:26 AM EDT): Currently connected with [facility] Continue current treatment per Dr. Marr Patient is considering about not continuing with the agency because of high copay for each visit. Assessment & Plan (06/27/2023 12:53 PM EST): Currently connected with [facility] Continue current treatment per Dr. Marr Patient is considering about not continuing with the agency because of high copay for each visit. Pruritus 08/26/2022 Assessment & Plan (08/26/2022 10:02 AM EDT): Will refer [facility], Dr. Aquino for evaluation Chronic pain of right knee 08/26/2022 Assessment & Plan (04/12/2024 8:41 PM EST): - h/o ACL tear -Pt is hesitant to receive steroid injection -Pt stopped being physically active due to fear of reinjuring ACL -Seen by [facility] on 11/06/22 -Dx right knee patellofemoral OA - patient has tried NSAIDs, APAP, and celecoxib, which were all ineffective - unable to get Tramadol due to needing authorization, has been going to PT with minimal improvement. Assessment & Plan (01/18/2024 4:10 PM EDT): - h/o ACL tear -Pt is hesitant to receive steroid injection -Pt stopped being physically active due to fear of reinjuring ACL -Seen by [facility] on 11/06/22 -Dx right knee patellofemoral OA - patient has tried NSAIDs, APAP, and celecoxib, which were all ineffective - will prescribe tramadol under MUSIC PRODUCER agreement Assessment & Plan (12/21/2022 11:53 AM EDT): - h/o ACL tear -Pt is hesitant to receive steroid injection -Pt stopped being physically active due to fear of reinjuring ACL -Seen by [facility] on 11/06/22 -Dx right knee patellofemoral OA -Rx celecoxib; since he has not picked up Sonal prescription, renewed the same script form orthopedist Assessment & Plan (08/26/2022 10:01 AM EDT): -Pt has h/o ACL tear -Pt is hesitant to receive steroid injection -Pt stopped being physically-active due to fear of reinjuring ACL -will refer to an Orthopedist Essential hypertension 07/14/2018 Assessment & Plan (07/11/2024 5:43 PM EST): Goal BP < 140/90 per JNC-8, <130/80 per ACC/AHA, BP is not at goal -Continue Lisinopril 30 mg daily -Work on lifestyle modifications -Improve Medication adherence -Advised to continue checking home BP -f/u in 3 months - patient was referred to shellfish grower but he is not enthusiastic to go to the appointment Assessment & Plan (04/10/2024 11:54 AM EST): Goal BP < 140/90 per JNC-8, <130/80 per ACC/AHA, BP is not at goal -Continue Lisinopril 30 mg daily -Work on lifestyle modifications -Improve Medication adherence -Advised to continue checking home BP -f/u in 3 months - patient was referred to shellfish grower but he is not enthusiastic to go to the appointment Assessment & Plan (01/18/2024 4:05 PM EDT): Goal BP < 140/90 per JNC-8, <130/80 per ACC/AHA, BP is not at goal -Continue Lisinopril 20 mg daily -Work on lifestyle modifications -Improve Medication adherence -Advised to continue checking home BP -f/u in 3 months - patient was referred to shellfish grower but he is not enthusiastic to go to the appointment Assessment & Plan (10/12/2023 11:24 AM EDT): Goal BP < 140/90 per JNC-8, <130/80 per ACC/AHA, BP is not at goal -Continue Lisinopril 20 mg daily -Work on lifestyle modifications -Improve Medication adherence -Advised to continue checking home BP -f/u in 3 months - patient currently does not have medication and requests clonidine in the clinic Assessment & Plan (06/27/2023 12:55 PM EST): Goal BP < 140/90 per JNC-8, <130/80 per ACC/AHA, BP is not at goal -Continue Lisinopril 20 mg daily -Work on lifestyle modifications -Improve Medication adherence -Advised to continue checking home BP -f/u in 3 months Assessment & Plan (12/15/2022 10:49 AM EDT): Goal BP < 140/90 per JNC-8, <130/80 per ACC/AHA, BP is at goal -Continue Lisinopril 20 mg daily -Work on lifestyle modifications -Improve Medication adherence -Advised to continue checking home BP -f/u in 3 months Assessment & Plan (08/26/2022 9:48 AM EDT): Goal BP < 140/90 per JNC-8, <130/80 per ACC/AHA, BP is not at goal -Continue Lisinopril 20 mg daily -Work on lifestyle modifications -Improve Medication adherence -Advised to continue checking home BP -f/u in 3 months Obstructive sleep apnea syndrome 10/30/2014 Allergic rhinitis 10/21/2012 Chronic back pain 10/21/2012 Assessment & Plan (07/19/2024 4:55 AM EST): - He has tried PT, injection treatment, [...] not approved - will request MRI again Assessment & Plan (04/16/2024 7:13 AM EST): - He has tried PT, injection treatment, and medications which have not provided adequate relief - X-ray in 2016 was unremarkable - He will be completing his PT this week - Patient has weakness and numbness of LE, especially on right side - will check the status of tramadol PA - will request MRI again Type 2 diabetes mellitus without complication Assessment & Plan (07/19/2024 4:45 AM EST): - A1c 6.4% on 07/11/24, trending up from 5.8% on 01/18/24 -Continue Metformin 500 mg daily -Encouraged patient to improve medication. -Continue working on lifestyle modification Last eye exam: 05/01/24 at [facility]. No retinopathy Last foot exam: 06/22/23 Last lipid profile: 08/26/23 Last microalbumin test- 08/26/23 no microalbuminuria Follow up in 4-6 mo or prn Assessment & Plan (04/12/2024 8:43 PM EST): - A1c 5.8% on 01/18/24 -Continue Metformin 500 mg daily -Encouraged patient to improve medication. -Continue working on lifestyle modification Last eye exam: 07/31/22 at [facility]. No retinopathy Last foot exam: 06/22/23 Last lipid profile: 08/30/20 TC 169; TG 59; HDL 50; LDL 105 Last microalbumin test- 08/30/20 no microalbuminuria Follow up in 4-6 mo or prn Assessment & Plan (01/18/2024 10:32 AM EDT): - A1c 5.8% on 01/18/24 -Continue Metformin 500 mg daily -Encouraged patient to improve medication. -Continue working on lifestyle modification Last eye exam: 07/31/22 at [facility]. No retinopathy Last foot exam: 06/22/23 Last lipid profile: 08/30/20 TC 169; TG 59; HDL 50; LDL 105 Last microalbumin test- 08/30/20 no microalbuminuria Follow up in 4-6 mo or prn Assessment & Plan (10/12/2023 10:56 AM EDT): - A1c 6.4% on 10/12/23 -Continue Metformin 500 mg daily -Encouraged patient to improve medication. -Continue working on lifestyle modification Last eye exam: 07/31/22 at [facility]. No retinopathy Last foot exam: 06/22/23 Last lipid profile: 08/30/20 TC 169; TG 59; HDL 50; LDL 105 Last microalbumin test- 08/30/20 no microalbuminuria Follow up in 4-6 mo or prn Assessment & Plan (06/27/2023 12:51 PM EST): - A1c 6.5% on 06/22/23, slightly improved -Continue Metformin 500 mg daily -Encouraged patient to improve medication. -Continue working on lifestyle modification Last eye exam: 07/31/22 at [facility]. No retinopathy Last foot exam: 06/22/23 Last lipid profile: 08/30/20 TC 169; TG 59; HDL 50; LDL 105 Last microalbumin test- 08/30/20 no microalbuminuria Follow up in 4-6 mo or prn Assessment & Plan (12/21/2022 11:54 AM EDT): A1c 6.8% on 08/26/22, stable from 6.7% on 03/30/22, steadily increasing -Continue Metformin 500 mg daily -Encouraged patient to improve medication. -Continue working on lifestyle modification Last eye exam: 07/31/22 at [facility]. No retinopathy Last foot exam: 08/21/21 Last lipid profile: 08/30/20 TC 169; TG 59; HDL 50; LDL 105 Last microalbumin test- 08/30/20 no microalbuminuria Assessment & Plan (08/26/2022 9:46 AM EDT): A1c 6.8% on 08/26/22, stable from 6.7% on 03/30/22, steadily increasing -Continue Metformin 500 mg (Pt not adherent to medication) -Encouraged patient to improve medication. -Continue working on lifestyle modification Last eye exam: 07/31/22 at [facility]. No retinopathy Last foot exam: 08/21/21 Last lipid profile: 08/30/20 TC 169; TG 59; HDL 50; LDL 105 Last microalbumin test- 08/30/20 no microalbuminuria Depression Assessment & Plan (04/16/2024 7:14 AM EST): -Previously connected with [facility] -PHQ9 score 19 in January 2024; he declines to return to behavioral health service provider as he speaks with integrated behavioral health service at work and has copay for each visit -PHQ9 score has improved today, score 5 -continue escitalopram 10 mg daily -agreed to prescribe clonazepam 1 mg tid under [employer]IC [employer]UCER agreement -reassess Dx Assessment & Plan (01/21/2024 3:50 PM EDT): -Previously connected with [facility] -PHQ9 score 19 today; he declines to return to behavioral health service provider as he speaks with integrated behavioral health service at work and has copay for each visit -continue escitalopram 10 mg daily -agreed to prescribe clonazepam 1 mg tid under MUSIC PRODUCER agreement -reassess Dx Assessment & Plan (10/12/2023 11:26 AM EDT): -Previously tried SSRI, recently, Lexapro which was ineffective. Pt is hesitant to try Buspirone or hydroxyzine -Engaged in Counseling at [facility], and started seeing psychiatrist -Continue current Behavioral health services -Continue judicious use of clonazepam; recommended to take it at night if he cannot sleep due to anxiety - patient is requesting PCP to prescribe his medications due to high copays with psychiatrist Assessment & Plan (06/27/2023 12:53 PM EST): -Previously tried SSRI, recently, Lexapro which was ineffective. Pt is hesitant to try Buspirone or hydroxyzine -Engaged in Counseling at [facility] Provider, and started seeing psychiatrist -Continue current Behavioral health services -Continue judicious use of clonazepam; recommended to take it at night if he cannot sleep due to anxiety Assessment & Plan (12/21/2022 11:57 AM EDT): -Previously tried SSRI, recently, Lexapro which was ineffective. Pt is hesitant to try Buspirone or hydroxyzine -Engaged in Counseling at [facility] Provider, and started seeing psychiatrist -Continue current Behavioral health services -Continue judicious use of clonazepam; recommended to take it at night if he cannot sleep due to anxiety Assessment & Plan (08/26/2022 10:02 AM EDT): -Previously tried SSRI, recently, Lexapro which was ineffective -Engaged in Counseling at [facility] Provider -Continue Behavioral health services -Changed Lexapro to Buspirone -Will Rx Clonazepam 0.5mg prn, max 10 tablets per month Resolved Problems Problem Noted Date Diagnosed Date Resolved Date COVID-19 06/21/2024 07/19/2024 Assessment & Plan (06/21/2024 6:57 PM EST): Started 2w ago, it may be complicate by another viral condition (norovirus? Adenovirus?) or just prolonged Covid. Rx GI symptoms : Imodium prn diarrhea, Zofran AC meals x 2-3d, increase PO fluids, take sucralfate TID AC meals x 2d until abd pain improves. Re consult prn if sxs do not improve. Hold metformin until he tolerates PO and diarrhea stops. Callback prn if BS goes above 250 No paxlovid indicated as he's more than 1w out of initial sxs and POS test (06/04) Isolation until tomorrow and he will be out of work until 06/24/24. Can be out of isolation, wearing a mask until 06/26/24, if sxs are resolved without other meds for at least 24h. Counseled to let close contacts within the past week, know about dx so they can be tested if needed. Rest (sleep at least 8 hours a night). Wash hands frequently Hydrate with plenty of water. Use saline nose drops prn nasal congestion Take Acetaminophen or Ibuprofen as Prn fever or discomfort Gargle with salt water and use throat sprays/lozenges prn Use heated, humidified air or take hot showers. If you have a fever, stay home and away from others (self isolation) until fever-free for 72 hours (temperature should be less than 100??F without medication). Gastritis 08/26/2022 12/15/2022 Overview (08/26/2022): Following with Gastrointestinal Specialist, Dr. Pandey Assessment & Plan (08/26/2022 9:10 AM EDT): EGD on 07/20/22 showed mild-gastritis and small Hiatal Hernia. Obesity (BMI 30-39.9) 07/14/20182024 Obesity 10/20/2012 07/19/2024 Assessment & Plan (04/12/2024 8:43 PM EST): - work on lifestyle modifications Assessment & Plan (10/12/2023 11:24 AM EDT): - work on lifestyle modifications Encounters Date Type Department Care Team Description 08/07/2024 Refill [facility] [address] [place] [address] Jojo Jaramillo MD 07/13/2024 Travel 07/13/2024 Telephone [facility] [address] [place], [place] [phone] Santa Wade, RN second chef 07/11/2024 3:00 PM EST Office Visit [facility] [address] [place] [address] Jjoo Jaramillo MD Essential hypertension (Primary Dx); Type 2 diabetes mellitus without complication, unspecified 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 control technician insulin use (CMS/HCC); Dyslipidemia; Mood disorder (CMS/[facility]); Dietary counseling; Exercise counseling; Overweight; Other chronic pain; Chronic low back pain, unspecified back pain laterality, unspecified whether sciatica present 07/11/2024 Travel 07/10/2024 Telephone [facility] [address] [place] [phone] Darlyn Ma MA CHART PREP 07/06/2024 Telephone [facility] [address] [place] [phone] Jojo Jaramillo MD Med Refill; second chef 06/22/2024 Telephone [facility] [address] [place] [phone] Darlyn Ma MA february recall 06/21/2024 3:20 PM EST Office Visit [facility] [address] [place] [phone] Violet Morales MD COVID-19 (Primary Dx); Type 2 diabetes mellitus without complication, unspecified whether [facility] insulin use (CMS/HCC) 06/08/2024 [facility]ill [facility] [facility] [address] [place] [phone] Rajat Mcconnell MD 05/29/2024 Telephone [facility] [address] [place] [phone] Jojo Jaramillo MD 05/09/2024 Orders Only [facility] [address] [address] Rajat Mcconnell MD 05/09/2024 Refill [facility] [address] [place] [phone] Jojo Jaramillo MD from Last 3 Months Immunizations Name Administration Dates Next Due Hep A, Adult 03/31/2007,09/21/2006 Hep B, adult 10/08/2017, 7,11/08/2006,09/21 Influenza Injectable Quadriv alant Preservative Free IIV4 MDCK 03/13/2020 Influenza injectable quadriv alent IIV4 with preservative 02/15/2019 Influenza, IIV3, injectable 02/05/2021, 4,03/04/2010 Pneumococcal Polysaccharide PPSV23 10/21/2012 TD (adult), 2 Lf tetanus tox oid, preservative free, adsorbed 09/21/2006 Tdap 09/28/2017,10/21/2012 Varicella 11/08/2017,10/08/2017 Family History Medical History Relation Name Comments Coronary artery disease Father Asthma Mother Diabetes Other Mental illness Other Relation Name Status Comments Father Mother Other Social History Tobacco Use Types Packs/Day Years Used Date Smoking Tobacco: Some Days Cigarettes Passive Smoke Exposure: Current Smokeless Tobacco: Never Tobacco Cessation:Ready to Q uit: Not Asked; Counseling Given: Not Answered Alcohol Answer Date Recorded Frequency of Alcohol [...] Orientation Straight 04/06/2022 10 :19 AM EDT Last Filed Vital Signs Vital Sign Reading Time Taken Comments Blood Pressure 152/93 07/11/2024 3:18 PM EST Pulse 88 07/11/2024 3:18 PM EST Temperature 36.5 ??C (97.7 ??F) 07/11/2024 3:18 PM ES T Respiratory Rate 14 07/11/2024 3:18 PM EST Oxygen Saturation 98% 07/11/2024 3:18 PM EST Inhaled Oxygen Concentration - - Weight 81.6 kg (180 lb) 07/11/2024 3:18 PM EST Height 172.7 cm (5' 8 ) 06/21/2024 3:19 PM EST Body Mass Index 27.37 06/21/2024 3:19 PM EST Plan of Treatment Upcoming Encounters Date Type Department Care Team (Late st Contact Info) Description 08/17/2024 3:00 PM EDT Clinical Support [facility] [address] [place] [address] Santa Wade, RN [address] [place] [address] Health Maintenance Due Date Last Done Comments CT Colonography 1975 FIT DNA/Cologuard 1975 FIT 1975 FOBT 1975 Sigmoidoscopy 1975 Family Planning (PISQ) 12/10/1990 Pneumococcal Vaccine: Pediatrics (0 to 5 Years) and At-Risk Patients (6 to 49) Years) (2 of 2 - PCV) 10/21/2013 10/21/2012 COVID-19 Vaccine ( season) 2024 06/27/2020, 05/30/2020 Influenza Vaccine (#1) 2024 , 03/13/2020, 02/15/2019, Additional history exists Diabetes: Foot Exam 06/22/2024 06/22/2023, 06/22/2023, 06/22/2023, Additional history exists Diabetes: Urine Protein Screening 08/25/2024 08/26/2023, 08/30/2020 Lipid Panel 08/25/2024 08/26/2023, 03/08, 08/21/2021, Additional history exists Diabetes: Hemoglobin A1C 01/08/2025 025, 01/18/2024, 10/12/2023, Additional history exists Alcohol/Substance Use Screening 04/10/2025 04/10/2024 SDOH Screening 04/10/2025 04/10/2024 Depression Screening 04/16/2025 04/16/2024, 04/16/20 24 Tobacco Screening 07/11/2025 07/11/2024 Zoster Vaccines (1 of 2) 12/10/2025 Eye Exam 05/01/2026 05/01/2024, 04/08, 05/01/2024, Additional history exists Colonoscopy 03/03/2027 03/03/2022 Colorectal Cancer Screening 03/03/2027 DTaP/Tdap/Td Vaccines (3 - Td or Tdap) 09/29/2027 09/28/2017, 10/21/2012, 09/21/2006 RSV Patients and Patients Aged 60 years or older (1 - 1-dose 75+ series) 12/10/2050 Hepatitis A Vaccines Aged Out 03/31/2007, 09/22/19 07 No longer eligible based on patient's age to complete this topic Hepatitis B Vaccines Completed 10/08/2017, 03/18/2007, 11/08/2006, Additional history exists HIV Screening Completed 08/26/2023, 08/05, 08/30/2020 Hepatitis C Screening Completed 08/26/2023 , 08/21/2021, 08/30/2020 HIB Vaccines Aged Out No longer eligi ble based on patient's age to complete this topic HPV Vaccines Aged Out No longer eligi ble based on patient's age to complete this topic IPV Vaccines Aged Out No longer eligi ble based on patient's age to complete this topic Meningococcal Vaccine Aged Out No keiko stephanie eligible based on patient's age to complete this topic RSV under 20 months Aged Out No longe r eligible based on patient's age to complete this topic Rotavirus Vaccines Aged Out No longer eligible based on patient's age to complete this topic Procedures Procedure Name Priority Date/Time Associated Diagnosis Comments POCT GLYCOSYLATED HEMOGLOBIN (HGB A1C) Routine 07/11/2024 3:21 PM EST Type 2 diabetes mellitus without complication, unspecified whether [facility] insulin use (CMS/HCC) POCT GLUCOSE Routine 07/11/2024 3:20 PM EST Type 2 diabetes mellitus without complication, unspecified 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 control technician insulin use (CMS/HCC) POCT GLUCOSE Routine 06/21/2024 3:54 PM EST Type 2 diabetes mellitus without complication, unspecified 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 control technician insulin use (CMS/HCC) POCT INFLUENZA A (ID NOW RAPID MOLECULAR) Routine 06/21/2024 3:54 PM EST COVID-19 POCT INFLUENZA B (ID NOW RAPID MOLECULAR) Routine 06/21/2024 3:54 PM EST COVID-19 POC RAMOS ID NOW STREP A Routine 06/21/2024 3:54 PM EST COVID-19 ALBUMIN, RANDOM URINE W/CREATININE Routine 08/26/2023 1:26 PM EDT Type 2 diabetes mellitus without complication, unspecified 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 control technician insulin use (CMS/HCC) LIPID PANEL WITH REFLEX TO DIRECT LDL Routine 08/26/2023 1:22 PM EDT Type 2 diabetes mellitus without complication, unspecified 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 control technician insulin use (CMS/HCC) HEPATITIS C AB W/REFL TO HCV RNA, QN, PCR Routine 08/26/2023 1:20 PM EDT Fatigue, unspecified type Routine screening for STI (sexually transmitted infection) HIV 1/2 ANTIGEN/ANTIBODY, FOURTH GENERATION W/RFL Routine 08/26/2023 1:20 PM EDT Fatigue, unspecified type Routine screening for STI (sexually transmitted infection) HM COLONOSCOPY Routine 03/03/2022 from Last 3 Months or Most Recently Relevant to Health Maintenance Results * (ABNORMAL) POCT glycosylated hemoglobin (Hgb A1c) (07/11/2024 3:21 PM EST) [facility] Hemoglobin A1C 6.3(A) 4.0 - 6.0 % QC Media Lot # [id number] Lot# Expiration Date Blood Capillary blood specimen / Unknown 07/11/2024 3:21 PM EST Result [facility] Jojo Jaramillo MD POINT OF CARE TEST ENTER/EDIT OR DERABLES Final Result * POCT glucose manually resulted (07/11/2024 3:20 PM EST) Only the most recent of2 resultswithin the time period is included. [facility] Glucose Blood, POC 137 60 - 200 mg/dL QC Media Lot # [id number] Lot# Expiration Date Blood Capillary blood specimen / Unknown 07/11/2024 3:20 PM EST Result [facility] Jojo Jaramillo MD POINT OF CARE TEST ENTER/EDIT OR DERABLES Final Result * POCT Rapid Influenza B RAMOS ID NOW (06/21/2024 3:54 PM EST) [facility] Influenza B Negative Negative, Indeterminate [facility] Swab 06/21/2024 3:54 PM EST Result [facility] Violet Morales MD POINT OF CARE TEST ENTER /EDIT ORDERABLES Final Result [facility] [address] [place] [address] [phone] * POCT Rapid Influenza A RAMOS ID NOW (06/21/2024 3:54 PM EST) [facility] Influenza A Negative Negative, Indeterminate [facility] Swab 06/21/2024 3:54 PM EST Result [facility] Violet Morales MD POINT OF CARE TEST ENTER /EDIT ORDERABLES Final Result Performing Organization Address [facility]/ZIP Co de Phone Number [facility] [address] [place] [phone] * POCT Rapid Strep A RAMOS ID NOW (06/21/2024 3:54 PM EST) Rapid Strep A Screen Negative Negative, None Detected [facility] Swab 06/21/2024 3:54 PM EST Violet Morales MD POINT OF CARE TEST ENTER /EDIT ORDERABLES Final Result Performing Organization Address [facility] Phone Number [facility] [address] [place] [address] [phone] * Albumin, Random Urine W/Creatinine (08/26/2023 1:26 PM EDT) Creatinine, Urine 172.30 mg/dL [facility] Microalbumin Urine 6.0 mg/L [facility] Microalbum Creatinine Ratio Ur 3.4 <30 ug/mg cr [facility] Comment:Albumin/Creatinine R atio Reference Ranges: Normal: < 30 ug/mg creatinine Microalbuminuria: 30 - 300 ug/mg creatinineClinical Albuminuria: > 300 ug/mg creatinine Urine 08/26/2023 1:26 PM EDT 08/26/2023 4:31 PM EDT us Jojo Jaramillo MD LAB URINE ORDERABLES Final Resul t Performing Organization Address [facility]/ZIP Co de Phone Number [facility] [address] [place] [phone] * (ABNORMAL) Lipid Panel with Reflex to Direct LDL (08/26/2023 1:22 PM EDT) Triglycerides 154(H) <150 mg/dL [facility] Comment:Desirable Triglyceri de: less than 150 mg/dLBorderline High Triglyceride 150-199 mg/dLHigh Triglyceride: 200-499 mg/dLVery High Triglyceride: greater than or equal to 5OO mg/dL Cholesterol 235(H) <200 mg/dL [facility] Comment:Desirable Cholestero l: less than 200 mg/dLBorderline High Cholesterol: 200-239 mg/dLHigh Cholesterol: greater than 239 mg/dL LDL Cholesterol Calculated 148(H) <100 mg/dL [facility] Comment:Desirable LDL: less than 100 mg/dLNear Optimal/Above Optimal LDL: 110- 129 mg/dLBorderline High LDL: 130-159 mg/dLHigh LDL: 160-189 mg/dLVery High LDL: greater than or equal to 190 mg/dL HDL Cholesterol 57 >40 mg/dL [facility] Comment:Desirable HDL: great er than 40 mg/dL Note: This HDL assay may give artificially low results in patients with liver disease. Blood 08/26/2023 1:22 PM EDT 08/26/2023 3:59 PM EDT Jojo Jaramillo MD LAB BLOOD ORDERABLES Final Resul t Performing Organization Address [facility] de Phone Number [facility] [address] [place] [phone] * Hepatitis C Antibody with Reflex to HCV, RNA, Quantitative, Real-Time PCR (08/26/2023 1:20 PM EDT) Hepatitis C Antibody Nonreactive Nonreactive [facility] Comment:Antibodies to HCV no t detected; does not exclude early acuteHCV infection. Blood Venous blood specimen / Unknown 08/26/2023 1:20 PM EDT 08/26/2023 3:59 PM EDT Jojo Jaramillo MD LAB BLOOD ORDERABLES Final Resul t Performing Organization Address City/[facility]/ZIP Co de Phone Number [facility] [address] [place] [phone] * HIV-1/2 Antigen and Antibodies, Fourth Generation, with Reflexes (08/26/2023 1:20 PM EDT) HIV AB/AG Nonreactive Nonreactive [facility] Comment:HIV-1 p24 Ag and/or HIV-1/HIV-2 Ab not detected.A test result that is nonreactive does not exclude thepossibility of exposure to or infection with HIV-1 and/orHIV-2. Nonreactive results in this assay for individualswith prior exposure to HIV-1 and/or HIV-2 may be due toantigen and antibody levels that are below the limit ofdetection of this assay.The [employer] HIV Ag/Ab Combo assay result andsupplemental assay results should be interpreted inconjunction with the patient's clinical presentation,history and other laboratory results. If the results areinconsistent with clinical evidence, additional testing issuggested to confirm the result. Blood Venous blood specimen / Unknown 08/26/2023 1:20 PM EDT 08/26/2023 3:59 PM EDT Jojo Jaramillo MD LAB BLOOD ORDERABLES Final Resul t [facility] [address] [place] [phone] * Colonoscopy (03/03/2022) Colonoscopy Normal Normal 03/03/2022 [facility] Unassigned Pcp HEALTH MAINTENANCE Edited Result - Final from Last 3 Months or Most Recently Relevant to Health Maintenance Insurance [facility] Care Teams Manpower Development Manager Relationship Specialty Start Date End Date Jojo Jaramillo MD [address] [place] [phone] PCP - General Family Medicine 12/19/18
--- OUTSIDE RECORDS SUMMARY | 2024-08-07 19:11 | XMS_ITS | Encounter Summary ---
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 Pt cancelled initial [employer] PR[employer]TER [employer] [place] on 06/08/24. No answer, lvm for pt to c/b and r/s. Queuing 2 weeks supply. F/u with PCP 07/11/24. documented in this encounter Plan of Treatment Upcoming Encounters Date Type Department Care Team (Late st Contact Info) Description 08/17/2024 3:00 PM EDT Clinical Support [facility] [address] [place] [address] Santa Wade, DAGOBERTO [address] [place] [address] documented as of this encounter Visit Diagnoses Diagnosis Type 2 diabetes mellitus without complications (CMS/HCC) documented in this encounter Additional Health Concerns Assessment Noted Time PHQ-9 Depression Total Score: 5 04/16/20 24 7:02 AM EST documented as of this encounter Care Teams Commercial Interior Designer Relationship Specialty Start Date End Date Jojo Jaramillo MD [address] [place] [address] PCP - General Family Medicine 12/19/18 documented as of this encounter
--- OUTSIDE RECORDS SUMMARY | 2024-08-07 19:11 | XMS_ITS | Encounter Summary ---
Author Organization [employer] Address [address] [place] [address] Care Team Providers Care Collections Representative Name Role Phone Jojo Jaramillo MD Primary Care Provider [phone] Reason for Visit * Reason Onset Date Comments coach 07/13/2024 Encounter Details Date Type Department Care Team ([facility] st Contact Info) Description 07/13/2024 Telephone [facility] [address] [place] [address] Santa Wade, DAGOBERTO [address] [place] [address] coach Social History Tobacco Use Types Packs/Day Years [...] encounter Miscellaneous Notes * Telephone Encounter - Santa Wade RN - 07/13/2024 11:27 AM EST TC back to pt via S ID# [id number]. HIDE STRETCHER HAND initial [place] r/s to 08/17/24 @3pm at [facility]. documented in this encounter Plan of Treatment Upcoming Encounters Date Type Department Care Team (Late st Contact Info) Description 08/17/2024 3:00 PM EDT Clinical Support [facility] [address] [place] [address] Santa Wade RN [address] [place] [address] documented as of this encounter Visit Diagnoses Not on filedocumented in this encounter Additional Health Concerns Assessment Noted Time PHQ-9 Depression Total Score: 5 04/16/20 24 7:02 AM EST documented as of this encounter Care Teams Collections Representative Relationship Specialty Start Date End Date Jojo Jaramillo MD [address] [place] [address] PCP - General Family Medicine 12/19/18 documented as of this encounter
--- OUTSIDE RECORDS SUMMARY | 2024-08-07 19:11 | XMS_ITS | Encounter Summary ---
Author Organization [employer] Address [address] [facility] 7t [place] [address] Care Team Providers Care Dyer Helper Name Role Phone Jojo Jaramillo MD Primary Care Provider [phone] Encounter Details Date Type Department Care Team (Late Contact Info) Description 12/18/2022 Abstract [facility] MED[facility]INE [address] [place], [place] [phone] Jojo Jaramillo MD [address] [place], [place] [phone] Social History Tobacco Use Types Packs/Day Years [...] Description 08/17/2024 3:00 PM EDT Clinical Support [facility]S [address] [place] [address] Santa Wade, RN [address] [place], [place] [phone] documented as of this encounter Visit Diagnoses Not on filedocumented in this encounter Additional Health Concerns Assessment Noted Time PHQ-9 Depression Total Score: 5 08/27/19 23 9:15 AM EDT documented as of this encounter Care Teams Dyer Helper Relationship Specialty Start Date End Date Jojo Jaramillo MD [address] [place] [address] PCP - General Family Medicine 12/19/18 documented as of this encounter
--- OUTSIDE RECORDS SUMMARY | 2024-08-07 19:11 | XMS_ITS | Encounter Summary ---
Author Organization [employer] Address [address] [place] [address] Care Team Providers Care Landscape Architecture Teacher Name Role Phone Jojo Jaramillo MD Primary Care Provider [phone] Reason for Visit * Reason Onset Date Comments Created In Error 03/09/2024 Encounter Details Date Type Department Care Team ([facility] st Contact Info) Description 03/09/2024 Telephone [facility] MEDICINE [address] [place], [place] [phone] Jojo Jaramillo MD [address] [place], [place] [phone] Created In Error Social History Tobacco Use Types Packs/Day Years [...] Description 08/17/2024 3:00 PM EDT Clinical Support [facility] MED [facility]EDS [address] [place] [address] Santa Wade, RN [address] [place] [address] documented as of this encounter Visit Diagnoses Not on filedocumented in this encounter Additional Health Concerns Assessment Noted Time PHQ-9 Depression Total Score: 19 024 10:43 AM EDT documented as of this encounter Care Teams Landscape Architecture Teacher Relationship Specialty Start Date End Date Jojo Jaramillo MD [address] [place] [address] PCP - General Family Medicine 12/19/18 documented as of this encounter
--- OUTSIDE RECORDS SUMMARY | 2024-08-07 19:11 | XMS_ITS | Encounter Summary ---
Author Organization [employer] Address [address] [place] [address] Care Team Providers Care Life Cycle Assessment Analyst Name Role Phone Jojo Jaramillo MD Primary Care Provider [phone] Encounter Details Date Type Department Care Team (Latest Contact Info) Description 07/13/2024 Travel Social History Tobacco Use Types Packs/Day [...] Description 08/17/2024 3:00 PM EDT Clinical Support [facility] [address] [place] [address] Santa Wade, RN [address] [place] [address] documented as of this encounter Visit Diagnoses Not on filedocumented in this encounter Additional Health Concerns Assessment Noted Time PHQ-9 Depression Total Score: 5 04/16/20 24 7:02 AM EST documented as of this encounter Care Teams Life Cycle Assessment Analyst Relationship Specialty Start Date End Date Jojo Jaramillo MD [address] [place] [address] PCP - General Family Medicine 12/19/18 documented as of this encounter
--- OUTSIDE RECORDS SUMMARY | 2024-08-07 19:11 | XMS_ITS | Encounter Summary ---
Author Organization [employer] Address [address] [facility] [address] [place] [address] Care Team Providers Care Medical Scientist Name Role Phone Jojo Jaramillo MD Primary Care Provider [phone] Encounter Details Date Type Department [facility] Description 08/20/2022 Orders Only [facility]EDS [address] [place] [address] Aline Echevarria LPN Social History Tobacco Use Types Packs/Day Years Used Date Smoking Tobacco: Former Cigarettes Sex and Gender Information Value Date Recorded [...] suspected to have Coronavirus/COVID-19? No / Unsure 07/31/2022 8:51 AM EST documented as of this encounter Plan of Treatment Upcoming Encounters Date Type Department Care Team (Late Contact Info) Description 08/17/2024 3:00 PM EDT Clinical Support [facility] [address] [place] [address] Santa Wade, DAGOBERTO [address] [place] [address] documented as of this encounter Visit Diagnoses Not on filedocumented in this encounter Care Teams Medical Scientist Relationship Specialty Start Date End Date Jojo Jaramillo MD [address] [place] [address] PCP - General Family Medicine 12/19/18 documented as of this encounter
--- OUTSIDE RECORDS SUMMARY | 2024-08-07 19:11 | XMS_ITS | Encounter Summary ---
Author Organization [email or web address] Address [address] [place] [address] Care Team Providers Care Staff Cytotechnologist Name Role Phone Jojo Jaramillo MD Primary Care Provider [phone] Encounter Details Date Type Department Care Team (Latest Contact Info) Description 07/21/2021 Abstract [facility], Provider, DDS Social History Tobacco [...] Description 08/17/2024 3:00 PM EDT Clinical Support [facility] [address] [place] [address] Santa Wade, RN 505 [place] [address] documented as of this encounter Visit Diagnoses Not on filedocumented in this encounter Care Teams Staff Cytotechnologist Relationship Specialty Start Date End Date Jojo Jaramillo MD [address] [place] [address] PCP - General Family Medicine 12/19/18 documented as of this encounter
--- OUTSIDE RECORDS SUMMARY | 2024-08-07 19:11 | XMS_ITS | Encounter Summary ---
Author Organization [employer] Address [address] [facility] 7t [place] [address] Care Team Providers Care Primary Care Md Name Role Phone Jojo Jaramillo MD Primary Care Provider [phone] Reason for Referral * Consultation (Routine) - Closed Specialty Diagnoses / Procedures Referred By Diamante de souza Referred To Contact Physical Therapy Diagnoses Chronic pain of right knee Bilateral leg pain Chronic midline low back pain, unspecified whether sciatica present Arthralgia of both knees Jojo Jaramillo MD [address] [place] [phone] Phone: tel: fax: [facility] [address] [place] [address] Phone: tel: fax: Referral ID Status Reason Start Date Expiration Date V isits Requested Visits Authorized [id number] Closed Specialty Services Required 02/18/2024 02/17/2025 1 1 Encounter Details Date Type Department Care Team (Late st Contact Info) Description 02/18/2024 Orders Only [facility] MEDICINE [address] [place], [place] [phone] Jojo Jaramillo MD [address] [place], [place] [phone] Chronic pain of right knee (Primary Dx); Bilateral leg pain; Chronic midline low back pain, unspecified whether sciatica present; Arthralgia of both knees Social History Tobacco Use Types Packs/Day Years [...] [facility] [address] [place] [address] Santa Wade, DAGOBERTO [address] [place] [address] Scheduled Referrals Name Type Priority Associated Diagnoses Orde r Schedule Referral to Physical Therapy Outpatient Referral Routine Chronic pain of right knee Bilateral leg pain Chronic midline low back pain, unspecified whether sciatica present Arthralgia of both knees Expected: 02/18/2024 (Approximate), Expires: 02/17/2025 documented as of this encounter Visit Diagnoses Diagnosis Chronic pain of right knee- Primary Bilateral leg pain Pain in soft tissues of limb Chronic midline low back pain, unspecified whether sciatica present Arthralgia of both knees documented in this encounter Additional Health Concerns Assessment Noted Time PHQ-9 Depression Total Score: 19 024 10:43 AM EDT documented as of this encounter Care Teams Primary Care Md Relationship Specialty Start Date End Date Jojo Jaramillo MD [address] [place] [phone] PCP - General Family Medicine 12/19/18 documented as of this encounter
--- OUTSIDE RECORDS SUMMARY | 2024-08-07 19:11 | XMS_ITS | Encounter Summary ---
Author Organization [employer] Address 75 [facility] 7t [place] [address] Care Team Providers Care Order Caller Name Role Phone Jojo Jaramillo MD Primary Care Provider [phone] Reason for Referral * Consultation (Urgent) - Closed Specialty Diagnoses / Procedures Referred By Diamante de souza Referred To Contact Physical Therapy Diagnoses Chronic low back pain, unspecified back pain laterality, unspecified whether sciatica present Jojo Jaramillo MD [address] [place] [address] Phone: tel: fax: Physical Therapy, ATI [address] [facility] [address] [place] [address] Phone: tel: fax: Referral ID Status Reason Start Date Expiration Date V isits Requested Visits Authorized [id number] Closed Specialty Services Required 03/02/2024 03/02/2025 1 1 Scheduling Instructions Patient would like to have PT at [facility] because the other PT has copays. Encounter Details Date Type Department Care Team (Late st Contact Info) Description 02/24/2024 Orders Only [facility] [address] [place] [address] [phone] Jojo Jaramillo MD [address] [place] [address] [phone] Chronic low back pain, unspecified back pain laterality, unspecified whether sciatica present (Primary Dx); Chronic pain of right knee; Bilateral leg pain Social History Tobacco Use Types Packs/Day Years [...] Description 08/17/2024 3:00 PM EDT Clinical Support [facility] [address] [place] [address] Santa Wade, DAGOBERTO 505 [place] [address] Scheduled Referrals Name Type Priority Associated Diagnoses Orde r Schedule Referral to Physical Therapy Outpatient Referral Urgent Chronic low back pain, unspecified back pain laterality, unspecified whether sciatica present Expected: 03/02/2024 (Approximate), Expires: 03/02/2025 documented as of this encounter Visit Diagnoses Diagnosis Chronic low back pain, unspecified back pain laterality, unspecified whether sciatica present- Primary Chronic pain of right knee Bilateral leg pain Pain in soft tissues of limb documented in this encounter Additional Health Concerns Assessment Noted Time PHQ-9 Depression Total Score: 19 024 10:43 AM EDT documented as of this encounter Care Teams Order Caller Relationship Specialty Start Date End Date Jojo Jaramillo MD [address] [place] [address] PCP - General Family Medicine 12/19/18 documented as of this encounter
--- OUTSIDE RECORDS SUMMARY | 2024-08-07 19:11 | XMS_ITS | Encounter Summary ---
Author Organization [employer] Address 75 [facility] 7t [place] [address] Care Team Providers Care Supervising Editor Trailer Name Role Phone Jojo Jaramillo MD Primary Care Provider [phone] Reason for Referral * Consultation (Urgent) - Authorized Specialty Diagnoses / Procedures Referred By Diamante de souza Referred To Contact Podiatry Diagnoses Ingrown toenail of both feet Jojo Jaramillo MD [address] [place] [address] Phone: tel: fax: Bob Du DPM [address] [facility] 1st Floor (Left) [place] [address] Phone: tel: fax: Referral ID Status Reason Start Date Expiration Date Visits Requested Visits Authorized [id number] Authorized Specialty Services Required 09/15/2023 09/14/2024 1 1 Encounter Details Date Type Department Care Team (Late st Contact Info) Description 09/15/2023 Orders Only [facility] [address] [place] [address] [phone] Jojo Jaramillo MD [address] [place], [place] [phone] Ingrown toenail of both feet (Primary Dx) Social History Tobacco Use Types Packs/Day Years Used Date Smoking Tobacco: Former Cigarettes Smokeless Tobacco: Never Depression Answer Date [...] Description 08/17/2024 3:00 PM EDT Clinical Support [facility] 505 [place] [address] Santa Wade RN 505 [place] [address] Scheduled Referrals Name Type Priority Associated Diagnoses Orde r Schedule Referral to Podiatry Outpatient Referral Urgent Ingrown toenail of both feet Expected: 09/15/2023 (Approximate), Expires: 09/14/2024 documented as of this encounter Visit Diagnoses Diagnosis Ingrown toenail of both feet- Primary documented in this encounter Additional Health Concerns Assessment Noted Time PHQ-9 Depression Total Score: 5 08/27/19 23 9:15 AM EDT documented as of this encounter Care Teams Supervising Editor Trailer Relationship Specialty Start Date End Date Jojo Jaramillo MD [address] [place] [address] PCP - General Family Medicine 12/19/18 documented as of this encounter
--- OUTSIDE RECORDS SUMMARY | 2024-08-07 19:11 | XMS_ITS | Encounter Summary ---
Author Organization [employer] Address [address] [facility] [address] 7t [place] [address] Care Team Providers Care Dental Appliance Repairer Name Role Phone Jojo Jaramillo MD Primary Care Provider [phone] Reason for Visit * Reason Onset Date Comments CHART PREP 07/10/2024 Encounter Details Date Type Department Care Team ([facility] st Contact Info) Description 07/10/2024 Telephone [facility] 230 [place], [place] [phone] Darlyn Ma MA CHART PREP Social History Tobacco Use Types Packs/Day Years [...] encounter Miscellaneous Notes * Telephone Encounter - Darlyn Ma [place] - 07/10/2024 9:30 AM EST .Chart Prep Labs: not done 01/18/24 Images: not applicable Vaccines due: Covid Due, PCV20 Due, and Flu Due Referrals: Completed Screenings: Not Applicable Overdue care gaps: A1C BS documented in this encounter Plan of Treatment Upcoming Encounters Date Type Department Care Team (Late st Contact Info) Description 08/17/2024 3:00 PM EDT Clinical Support [facility] [address] [place] [address] Santa Wade, RN 505 [place] [address] documented as of this encounter Visit Diagnoses Not on filedocumented in this encounter Additional Health Concerns Assessment Noted Time PHQ-9 Depression Total Score: 5 04/16/20 24 7:02 AM EST documented as of this encounter Care Teams Dental Appliance Repairer Relationship Specialty Start Date End Date Jojo Jaramillo MD 230 [place] [address] PCP - General Family Medicine 12/19/18 documented as of this encounter
--- OUTSIDE RECORDS SUMMARY | 2024-08-07 19:11 | XMS_ITS | Encounter Summary ---
Author Organization [employer] Address [address] [facility] [address] 7[address] [place] [address] Care Team Providers Care Meatman Name Role Phone Jojo Jaramillo MD Primary Care Provider [phone] Encounter Details Date Type Department Care Team ([facility] st Contact Info) Description 05/29/2024 Telephone [facility] 230 [place], [place] [phone] Jojo Jaramillo MD 230 [place], [place] [phone] Social History Tobacco Use Types Packs/Day Years [...] encounter Miscellaneous Notes * Telephone Encounter - Nitza Middleton - 06/01/2024 4:23 PM EST Med PA denied stating insurance requires patient and doctor have signed an agreement and have an assessment of the risk of drug addiction. Included transformation specialist team for info regarding the MRI referral. Thank you * Telephone Encounter - Jojo Jaramillo MD - 05/29/2024 1:03 PM EST Patient states MRI and tramadol PA were denied. Please check the reasons for denial. We need to resubmit because patient has already done physical therapy. documented in this encounter Plan of Treatment Upcoming Encounters Date Type Department Care Team (Late st Contact Info) Description 08/17/2024 3:00 PM EDT Clinical Support [facility] 505 [place] [address] Santa Wade, RN 505 [place] [address] documented as of this encounter Visit Diagnoses Not on filedocumented in this encounter Additional Health Concerns Assessment Noted Time PHQ-9 Depression Total Score: 5 04/16/20 24 7:02 AM EST documented as of this encounter Care Teams Meatman Relationship Specialty Start Date End Date Jojo Jaramillo MD [address] [place] [address] PCP - General Family Medicine 12/19/18 documented as of this encounter
--- OUTSIDE RECORDS SUMMARY | 2024-08-07 19:11 | XMS_ITS | Encounter Summary ---
Author Organization [employer] Address [address] [facility] [address] 7t [place] [address] Care Team Providers Care Health Advocate Name Role Phone Jojo Jaramillo MD Primary Care Provider [phone] Reason for Visit * Reason Comments Med Refill Encounter Details Date Type Department Care Team ([facility] Contact Info) Description 05/01/2024 Refill [facility] 230 [place], [place] [phone] Jojo Jaramillo MD [address] [place], [place] [phone] Social History Tobacco Use Types Packs/Day Years [...] 3:00 PM EDT Clinical Support [facility] 505 [place] [address] Santa Wade, RN 505 [place] [address] documented as of this encounter Visit Diagnoses Not on filedocumented in this encounter Additional Health Concerns Assessment Noted Time PHQ-9 Depression Total Score: 5 04/16/20 24 7:02 AM EST documented as of this encounter Care Teams Health Advocate Relationship Specialty Start Date End Date Jojo Jaramillo MD [address] [place] [address] PCP - General Family Medicine 12/19/18 documented as of this encounter
== END 2024-08-07 17:32 | disposition home or self-care (01) ==
LOC: HO.MRI 17:31
PROVIDERS: PCP Family Medicine; Visit Provider Family Medicine
DX: M54.50 Low back pain, unspecified (principal); G89.29 Other chronic pain
CPT/HCPCS: 72148

== ENCOUNTER 2024-09-13 13:03 | Outpatient (AMB) | payer OTHER, SELFPAY ==
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
[2024-09-13 13:13] VITALS: BMI 28.1
--- OUTSIDE RECORDS SUMMARY | 2024-09-13 15:12 | XMS_ITS | Encounter Summary ---
Author Organization [employer] Address [address] [facility] [address] 7t [place] [address] Care Team Providers Care Plant Chief Name Role Phone Jojo Jaramillo MD Primary Care Provider [phone] Encounter Details Date Type Department Care Team (Late st Contact Info) Description 10/18/2023 Orders Only [facility] MED[facility]INE 230 [place], [place] [phone] Jojo Jaramillo MD [address] [place], [place] [phone] Social History Tobacco Use Types Packs/Day Years [...] Care Team (Late st Contact Info) Description 10/19/2024 1:30 PM EDT Clinical Support [facility] 505 [place] [address] Santa Wade, DAGOBERTO 505 [place] [address] documented as of this encounter Visit Diagnoses Not on filedocumented in this encounter Additional Health Concerns Assessment Noted Time PHQ-9 Depression Total Score: 5 10/12/19 24 10:50 AM EDT documented as of this encounter Care Teams Plant Chief Relationship Specialty Start Date End Date Jojo Jaramillo MD [address] [place] [address] PCP - General Family Medicine 12/19/18 documented as of this encounter
--- OUTSIDE RECORDS SUMMARY | 2024-09-13 15:12 | XMS_ITS | Encounter Summary ---
Author Organization [employer] Address [address] [facility] [address] 7t [place] [address] Care Team Providers Care Model Maker Apprentice Name Role Phone Jojo Jaramillo MD Primary Care Provider [phone] Encounter Details Date Type Department Care Team (Late st Contact Info) Description 09/12/2024 5:40 PM EDT Office Visit [facility] 230 [place], [place] [phone] Dima Castillo MD [address] [place], [place] [phone] Multilevel spondylosis (Primary Dx); Chronic pain of right knee Social History Tobacco Use Types Packs/Day Years Used Date Smoking Tobacco: Some Days Cigarettes Passive Smoke Exposure: Current Smokeless Tobacco: Never Alcohol Use Standard Drinks/Week Comments Never 0 (1 standard drink = 0.6 oz pur e alcohol) Alcohol Answer Date Recorded Frequency of Alcohol [...] Sign Reading Time Taken Comments Blood Pressure 146/90 09/12/2024 4:43 PM EDT Pulse 85 09/12/2024 4:43 PM EDT Temperature 36.7 ??C (98 ??F) 09/12/2024 4:43 PM EDT Respiratory Rate 14 09/12/2024 4:43 PM EDT Oxygen Saturation - - Inhaled Oxygen Concentration - - Weight 83.9 kg (185 lb) 09/12/2024 4:43 PM EDT Height 172.7 cm (5' 8 ) 09/12/2024 4:43 PM EDT Body Mass Index 28.13 09/12/2024 4:43 PM EDT documented in this encounter Progress Notes * Dima Castillo MD - 09/12/2024 5:40 PM EDT Subjective History was provided by the patient. Tomy Knutson is a 48 y.o. male who presents to [facility] for evaluation of ongoing low back and right knee pain. History of right knee ACL reconstruction, currently followed by Orthopedic Surgery. Also was told he has arthritis in his knee. PCP recently ordered MRI of L-spine (08/08/2024) which revealed multi-level lumbar spondylosis. He was urgently referred to Spine Clinic. He had to cancel his first appointment which was scheduled yesterday, but it is now re-scheduled for tomorrow. He previously discussed with PCP about his pain management. States no significant improvement from Physical Therapy. Meloxicam was ineffective. He felt Tramadol Rx was helpful, but previously told hewould prefer not taking Tramadol. PCP offered Duloxetine, but does not wish to pursue this medication due to perceived adverse effects (he is currently on Escitalopram for MDD and tolerating it well). I spoke with him about cross tapering off Escitalopram and start Duloxetine. However, patient doesnot wish to pursue this option. Although his diabetes is well controlled with Hgb A1c of 6.3 (07/2024), he was concerned about potential worsening of his glucose if he opts for corticosteroid injections by the specialists. He is currently wishing to go back on Tramadol (states he already spoke with the WIRELESS SALES CONSULTANT nurse). Objective Vitals: 09/12/24 1643 BP: (!) 146/90 BP Location: Left arm Patient Position: Sitting BP Cuff Size: Adult Pulse: 85 Resp: 14 Temp: 98 ??F (36.7 ??C) TempSrc: Oral Weight: 185 lb (83.9 kg) Height: 5' 8 (1.727 m) Physical Exam Constitutional: General: He is not in acute distress. Appearance: Normal appearance. He is not ill-appearing. Comments: Appears uncomfortable from pain HENT: Head: Normocephalic and atraumatic. Eyes: Extraocular Movements: Extraocular movements intact. Conjunctiva/sclera: Conjunctivae normal. Pulmonary: Effort: Pulmonary effort is normal. Musculoskeletal: Cervical back: Neck supple. Skin: General: Skin is dry. Neurological: General: No focal deficit present. Mental Status: He is alert and oriented to person, place, and time. Psychiatric: Mood and Affect: Mood normal. Behavior: Behavior normal. No visits with results within 2 Day(s) from this visit. Latest known visit with results is: Office Visit on 07/11/2024 Component Date Value Ref Range Status Hemoglobin A1C 07/11/2024 6.3 (A) 4.0 - 6.0 % Final QC Media Lot # 07/11/2024 [id number] Final Lot# Expiration Date 07/11/2024 [id number] Final Glucose Blood, POC 07/11/2024 137 60 - 200 mg/dL Final QC Media Lot # 07/11/2024 [id number] Final Lot# Expiration Date 07/11/2024 [id number] Final Diagnoses and all orders for this visit: Multilevel spondylosis (Primary) Chronic pain of right knee Patient presents to [facility] due to chronic low back and right knee pain Currently followed by Orthopedics for his right knee pain PCP recently referred him to a Spine Center (appointment scheduled tomorrow) Patient tried many modalities for pain management, but inadequate relief of his symptoms History of right knee ACL reconstruction MRI of L-spine (08/08/2024) revealed multi-level lumbar spondylosis Interested in resuming Tramadol Rx for pain management States he already met with the WIRELESS SALES CONSULTANT nurse and signed the contract Will message the WIRELESS SALES CONSULTANT nurse to see if we can re-initiate his Rx (previously tolerated the medication, but patient wanted to try off the medication) Offered Duloxetine, but does not wish to pursue this medication due to perceived adverse effects He has also been referred to Chiropractic documented in this encounter Plan of Treatment Upcoming Encounters Date Type Department Care Team (Late st Contact Info) Description 10/19/2024 1:30 PM EDT Clinical Support [facility] [address] [place] [address] Santa Wade, RN 505 [place] [address] documented as of this encounter Visit Diagnoses Diagnosis Multilevel spondylosis- Primary Chronic pain of right knee documented in this encounter Additional Health Concerns Assessment Noted Time PHQ-9 Depression Total Score: 5 04/16/20 24 7:02 AM EST documented as of this encounter Care Teams Model Maker Apprentice Relationship Specialty Start Date End Date Jojo Jaramillo MD [address] [place] [address] PCP - General Family Medicine 12/19/18 documented as of this encounter
--- OUTSIDE RECORDS SUMMARY | 2024-09-13 15:12 | XMS_ITS | Encounter Summary ---
Author Organization [employer] Address 75 [facility] 7t [place] [address] Care Team Providers Care Folding Machine Setter Name Role Phone Jojo Jaramillo MD Primary Care Provider [phone] Reason for Referral * Consultation (Routine) - Closed Specialty Diagnoses / Procedures Referred By Diamante de souza Referred To Contact Chiropractic Medicine Diagnoses Chronic low back pain, unspecified back pain laterality, unspecified whether sciatica present Chronic pain of right knee Bilateral leg pain Jojo Jaramillo MD [address] [place] [address] Phone: tel: fax: [facility] [address] [place] [address] Phone: tel: fax: Referral ID Status Reason Start Date Expiration Date V isits Requested Visits Authorized [id number] Closed Specialty Services Required 09/10/2024 09/10/2025 1 1 Encounter Details Date Type Department Care Team (Late st Contact Info) Description 09/10/2024 Orders Only [facility] MEDICINE [address] [place] [address] Jojo Jaramillo MD [address] [place] [address] [phone] Chronic low back pain, unspecified back pain [...] Upcoming Encounters Date Type Department Care Team ([facility] st Contact Info) Description 10/19/2024 1:30 PM EDT Clinical Support [facility] MED & PEDS [address] [place] [address] Santa Wade, RN 505 [place] [address] Scheduled Referrals Name Type Priority Associated Diagnoses Orde r Schedule Referral to Chiropractic Outpatient Referral Routine Chronic low back pain, unspecified back pain laterality, unspecified whether sciatica present Chronic pain of right knee Bilateral leg pain Expected: 09/10/2024 (Approximate), Expires: 09/10/2025 documented as of this encounter Visit Diagnoses Diagnosis Chronic low back pain, unspecified back pain laterality, unspecified whether sciatica present- Primary Chronic pain of right knee Bilateral leg pain Pain in soft tissues of limb documented in this encounter Additional Health Concerns Assessment Noted Time PHQ-9 Depression Total Score: 5 04/16/20 24 7:02 AM EST documented as of this encounter Care Teams Folding Machine Setter Relationship Specialty Start Date End Date Jojo Jaramillo MD [address] [place] [address] PCP - General Family Medicine 12/19/18 documented as of this encounter
--- OUTSIDE RECORDS SUMMARY | 2024-09-13 15:12 | XMS_ITS | Encounter Summary ---
Author Organization [employer] Address 75 [facility] 7t [place] [address] Care Team Providers Care Congressional Assistant Name Role Phone Jojo Jaramillo MD Primary Care Provider [phone] Reason for Referral * Consultation (Routine) - Closed Specialty Diagnoses / Procedures Referred By Diamante de souza Referred To Contact Physical Therapy Diagnoses Chronic pain of right knee Bilateral leg pain Chronic midline low back pain, unspecified whether sciatica present Arthralgia of both knees Jojo Jaramillo MD [address] [place] [address] Phone: tel: fax: [facility] Physical Therapy [address] [place] [address] Phone: tel: fax: Referral ID Status Reason Start Date Expiration Date V isits Requested Visits Authorized [id number] Closed Specialty Services Required 02/18/2024 02/17/2025 1 1 Encounter Details Date Type Department Care Team (Late st Contact Info) Description 02/18/2024 Orders Only [facility] MEDICINE 230 [place], [place] [phone] Jojo Jaramillo MD 230 [place], [place] [phone] Chronic pain of right knee (Primary Dx); [...] Description 10/19/2024 1:30 PM EDT Clinical Support [facility] MED & PEDS 505 [place] [address] Santa Wade, DAGOBERTO 505 [place] [address] Scheduled Referrals Name Type Priority Associated Diagnoses [...] documented as of this encounter Care Teams Congressional Assistant Relationship Specialty Start Date End Date Jojo Jaramillo MD [address] [place] [address] PCP - General Family Medicine 12/19/18 documented as of this encounter
--- OUTSIDE RECORDS SUMMARY | 2024-09-13 15:12 | XMS_ITS | Encounter Summary ---
Author Organization [employer] Address [address] [facility] [address] 7t [place] [address] Care Team Providers Care Transportation Specialist Name Role Phone Jojo Jaramillo MD Primary Care Provider [phone] Encounter Details Date Type Department Care Team (Late st Contact Info) Description 01/27/2024 Orders Only [facility] MEDICINE 230 [place], [place] [phone] Jojo Jaramillo MD 230 [place], [place] [phone] Social History Tobacco Use Types Packs/Day Years [...] 10/19/2024 1:30 PM EDT Clinical Support [facility] MED & PEDS 505 [place] [address] Santa Wade, DAGOBERTO 505 [place] [address] documented as of this encounter Visit Diagnoses Not on filedocumented in this encounter Additional Health Concerns Assessment Noted Time PHQ-9 Depression Total Score: 19 024 10:43 AM EDT documented as of this encounter Care Teams Transportation Specialist Relationship Specialty Start Date End Date Jojo Jaramillo MD [address] [place] [address] PCP - General Family Medicine 12/19/18 documented as of this encounter
--- OUTSIDE RECORDS SUMMARY | 2024-09-13 15:12 | XMS_ITS | Encounter Summary ---
Author Organization [employer] Address 75 [facility] 7t [place] [address] Care Team Providers Care Lamp Decorator Name Role Phone Jojo Jaramillo MD Primary Care Provider [phone] Reason for Referral * Consultation (Urgent) - Closed Specialty Diagnoses / Procedures Referred By Diamante de souza Referred To Contact Physical Therapy Diagnoses Chronic low back pain, unspecified back pain laterality, unspecified whether sciatica present Jojo Jaramillo MD [address] [place] [address] Phone: tel: fax: Physical Therapy, [facility] [address] [facility] [address] [place] [address] Phone: tel: fax: Referral ID Status Reason Start Date Expiration Date V isits Requested Visits Authorized [id number] Closed Specialty Services Required 03/02/2024 03/02/2025 1 1 Scheduling Instructions Patient would like to have PT at [facility] because the other PT has copays. Encounter Details Date Type Department Care Team (Late st Contact Info) Description 02/24/2024 Orders Only [facility] MEDICINE [address] [place] [address] [phone] Jojo Jaramillo MD [address] [place] [address] [phone] Chronic low back pain, unspecified back pain [...] Description 10/19/2024 1:30 PM EDT Clinical Support [facility] MED & PEDS 505 [place] [address] Santa Wade, DAGOBERTO 505 [place] [address] Scheduled Referrals Name Type Priority Associated Diagnoses [...] documented as of this encounter Care Teams Lamp Decorator Relationship Specialty Start Date End Date Jojo Jaramillo MD 230 [place] [address] PCP - General Family Medicine 12/19/18 documented as of this encounter
--- OUTSIDE RECORDS SUMMARY | 2024-09-13 15:12 | XMS_ITS | Encounter Summary ---
Author Organization [employer] Address 75 [facility] 7t [place] [address] Care Team Providers Care Machine Taper Name Role Phone Jojo Jaramillo MD Primary Care Provider [phone] Reason for Referral * Consultation (Urgent) - Authorized Specialty Diagnoses / Procedures Referred By Diamante de souza Referred To Contact Podiatry Diagnoses Ingrown toenail of both feet Jojo Jaramillo MD 230 [place] [address] Phone: tel: fax: Bob Du DPM [address] [facility] 1st Floor (Left) [place] [address] Phone: tel: fax: Referral ID Status Reason Start Date Expiration Date Visits Requested Visits Authorized [id number] Authorized Specialty Services Required 09/15/2023 09/14/2024 1 1 Encounter Details Date Type Department Care Team (Late st Contact Info) Description 09/15/2023 Orders Only [facility] MEDICINE [address] [place] [address] [phone] Jojo Jaramillo MD 230 [place], [place] [phone] Ingrown toenail of both feet (Primary Dx) [...] Description 10/19/2024 1:30 PM EDT Clinical Support [facility] MED & PEDS 505 [place] [address] Santa Wade RN 505 [place] [address] Scheduled Referrals Name Type Priority Associated Diagnoses [...] documented as of this encounter Care Teams Machine Taper Relationship Specialty Start Date End Date Jojo Jaramillo MD [address] [place] [address] PCP - General Family Medicine 12/19/18 documented as of this encounter
--- OUTSIDE RECORDS SUMMARY | 2024-09-13 15:12 | XMS_ITS | Encounter Summary ---
Author Organization [employer] Address 75 [facility] [address] 7t [place] [address] Care Team Providers Care Rock Wool Applicator Name Role Phone Jojo Jaramillo MD Primary Care Provider [phone] Reason for Visit * Reason Comments Med Refill Encounter Details Date Type Department Care Team ([facility] st Contact Info) Description 06/24/2023 Refill [facility] MEDICINE 230 [place], [place] [phone] Name, MD Gabe 230 [place], [place] [phone] Social History Tobacco Use Types Packs/Day Years [...] Description 10/19/2024 1:30 PM EDT Clinical Support [facility] MED & PEDS 505 [place] [address] Santa Wade, DAGOBERTO 505 [place] [address] documented as of this encounter Visit Diagnoses Not on filedocumented in this encounter Additional Health Concerns Assessment Noted Time PHQ-9 Depression Total Score: 5 08/27/19 23 9:15 AM EDT documented as of this encounter Care Teams Rock Wool Applicator Relationship Specialty Start Date End Date Jojo Jaramillo MD 230 [place] [address] PCP - General Family Medicine 12/19/18 documented as of this encounter
--- OUTSIDE RECORDS SUMMARY | 2024-09-13 15:12 | XMS_ITS | Patient Health Record ---
Demographics Address [address] [facility] [address] [place] [address] Mobile Preferred Language en Marital Status Unknown Taoist Affiliation Unknown Race or A laska [place] Additional Race(s) [place] Ethnic Group or Author Organization [facility] Address [address] [place] [address] Care Team Providers Care Cab Worker Name Role Phone Ella OTERO, Jojo Primary Care Provider Tremayne Andino Unavailable [phone] Allergies No Known Allergies Reason For Referral No Information Medications Medication SIG (Take, Route, Frequency, Duration) Notes [...] Acetonide 0.1 % External for 14 Active Immunizations Vaccine Route Administration Date Status Comme nts Influenza Unknown 02/05/2021 Administered Influenza Unknown 06/03/2022 Refused Social History Tobacco Use: Social History Observation Description Date Details (start date - stop date) Never Smoker NA - NA Tobacco Use/Smoking Question Answer Notes Patient is a nonsmoker Alcohol Screen Question Answer Notes Did you have a drink containing alcohol in the p ast year? 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; no sig alcohol; nonsmoker Problems Problem Type SNOMED Code ICD Code Onset Dates Problem Status W/U Status Risk Notes Problem Esophageal reflux (755217260) Esophageal reflux (K21.9) Active confirmed Problem 81441664 Epigastric abdom inal pain (R10.13) Active confirmed Problem Screening for malignant neoplasm of colon (230926672) Encounter for screening for malignant neoplasm of colon (Z12.11) Active confirmed Problem Pre-procedure evaluation check (466605451) Encounter for other preprocedural examination (Z01.818) Active confirmed Problem Gastritis (0569705) Gastritis (K29.70) Active confirmed Problem 188556795 Right upper quad rant abdominal pain (R10.11) Active confirmed Problem 212511364 Gastroesophageal reflux disease, unspecified whether esophagitis present (K21.9) Active confirmed Plan Of Treatment Pending Test Test Name Order Date US ABD 06/03/2022 Future Test Test Name Order Date COLONOSCOPY 12/03/2021 UPPER GI ENDOSCOPY 06/03/2022 Insurance Providers Payer Name Payer Address Payer Phone Subscriber Number Group Number Insured Name Patient Relationship to Insured Coverage Start Date Coverage End Date [facility] [address] [place] [phone] [id number] MATT SOL Self - patient is the insured MEDICAID OF [facility] [address] [place] [address] [id number] MATT SOL Self - patient is the insured Medical (General) History Medical History History ICD Code Back pain Hypertension Denies IA,CVA,Lung disease,renal disease Hyperlipidemia Anxiety NIDDM Screening colonoscopy in Feb with only a small hyperplastic polyp removed Surgical History Surgery Date(Month/Year) Right knee ACL
--- OUTSIDE RECORDS SUMMARY | 2024-09-13 15:12 | XMS_ITS | Encounter Summary ---
Author Organization [employer] Address [address] [facility] [address] 7t [place] [address] Care Team Providers Care Special Delivery Messenger Name Role Phone Jojo Jaramillo MD Primary Care Provider Reason for Visit * Reason Comments Med Refill Encounter Details Date Type Department Care Team ([facility] Contact Info) Description 05/01/2024 Refill [facility] MEDICINE 230 [place], [place] [phone] Jojo Jaramillo MD 230 [place], [place] [phone] Social History Tobacco Use Types Packs/Day Years [...] [facility] 505 [place] [address] Santa Wade, RN 505 [place] [address] documented as of this encounter Visit Diagnoses Not on filedocumented in this encounter Additional Health Concerns Assessment Noted Time PHQ-9 Depression Total Score: 5 04/16/20 24 7:02 AM EST documented as of this encounter Care Teams Special Delivery Messenger Relationship Specialty Start Date End Date Jojo Jaramillo MD [address] [place] [address] PCP - General Family Medicine 12/19/18 documented as of this encounter
--- OUTSIDE RECORDS SUMMARY | 2024-09-13 15:12 | XMS_ITS | Encounter Summary ---
Author Organization [employer] Address [address] [facility] [address] 7t [place] [address] Care Team Providers Care Esthetician Makeup Artist Name Role Phone Jojo Jaramillo MD Primary Care Provider [phone] Encounter Details Date Type Department Care Team (Late st Contact Info) Description 09/12/2024 Telephone [facility] 230 [place], [place] [phone] Dima Castillo MD 230 [place], [place] [phone] Social History Tobacco Use Types Packs/Day Years [...] encounter Miscellaneous Notes * Telephone Encounter - Dima Castillo MD - 09/12/2024 8:19 PM EDT Message to LAP MAKER Team documented in this encounter Plan of Treatment Upcoming Encounters Date Type Department Care Team (Late st Contact Info) Description 10/19/2024 1:30 PM EDT Clinical Support [facility] MED & PEDS 505 [place] [address] Santa Wade, RN 505 [place] [address] documented as of this encounter Visit Diagnoses Not on filedocumented in this encounter Additional Health Concerns Assessment Noted Time PHQ-9 Depression Total Score: 5 04/16/20 24 7:02 AM EST documented as of this encounter Care Teams Esthetician Makeup Artist Relationship Specialty Start Date End Date Jojo Jaramillo MD 230 [place] [address] PCP - General Family Medicine 12/19/18 documented as of this encounter
--- OUTSIDE RECORDS SUMMARY | 2024-09-13 15:12 | XMS_ITS | Encounter Summary ---
Author Organization [employer] Address [address] [facility] [facility] [address] 7[address] [place] [address] Care Team Providers Care Sharepoint Architect Name Role Phone Jojo Jaramillo MD Primary Care Provider [phone] Encounter Details Date Type Department Care Team (Late st Contact Info) Description 04/21/2023 Orders Only [facility] MEDICINE 230 [place], [place] [phone] Jojo Jaramillo MD 230 [place], [place] [phone] Psoriasis (Primary Dx); Psoriasiform dermatitis Social History [...] Description 10/19/2024 1:30 PM EDT Clinical Support [facility] MED & PEDS 505 [place] [address] Santa Wade, RN 505 [place] [address] documented as of this encounter Visit Diagnoses Diagnosis Psoriasis- Primary Other psoriasis Psoriasiform dermatitis Other psoriasis and similar disorders documented in this encounter Additional Health Concerns Assessment Noted Time PHQ-9 Depression Total Score: 5 08/27/19 23 9:15 AM EDT documented as of this encounter Care Teams Sharepoint Architect Relationship Specialty Start Date End Date Jojo Jaramillo MD [address] [place] [address] PCP - General Family Medicine 12/19/18 documented as of this encounter
--- OUTSIDE RECORDS SUMMARY | 2024-09-13 15:12 | XMS_ITS | Encounter Summary ---
Author Organization [employer] Address [address] [facility] [address] 7t [place] [address] Care Team Providers Care Instrument Room Technician Name Role Phone Jojo Jaramillo MD Primary Care Provider Reason for Visit * Reason Onset Date Comments Med Refill 09/13/2024 Encounter Details Date Type Department Care Team ([facility] st Contact Info) Description 09/13/2024 Refill [facility] MED & PEDS 505 [place] [address] Santa Wade RN 505 [place] [address] Arthralgia of both knees; Chronic midline low back pain, unspecified whether sciatica present Social History Tobacco [...] Description 10/19/2024 1:30 PM EDT Clinical Support [facility] MED & PEDS 505 [place] [address] Santa Wade, RN 505 [place] [address] documented as of this encounter Visit Diagnoses Diagnosis Arthralgia of both knees Chronic midline low back pain, unspecified whether sciatica present documented in this encounter Additional Health Concerns Assessment Noted Time PHQ-9 Depression Total Score: 5 04/16/20 24 7:02 AM EST documented as of this encounter Care Teams Instrument Room Technician Relationship Specialty Start Date End Date Jojo Jaramillo MD 230 [place] [address] PCP - General Family Medicine 12/19/18 documented as of this encounter
--- OUTSIDE RECORDS SUMMARY | 2024-09-13 15:13 | XMS_ITS | Encounter Summary ---
Author Organization [employer] Address [address] [facility] 7t [place] [address] Care Team Providers Care Greenhouse Technician Name Role Phone Jojo Jaramillo MD Primary Care Provider [phone] Encounter Details Date Type Department Care Team (Late Contact Info) Description 12/18/2022 Abstract [facility] MEDICINE 230 [place], [place] [phone] Jojo Jaramillo MD 230 [place], [place] [phone] Social History Tobacco Use Types Packs/Day Years [...] Department Care Team (Late Contact Info) Description 10/19/2024 1:30 PM EDT Clinical Support [facility] MED & PEDS 505 [place] [address] Santa Wade, RN 505 [place], [place] [phone] documented as of this encounter Visit Diagnoses Not on filedocumented in this encounter Additional Health Concerns Assessment Noted Time PHQ-9 Depression Total Score: 5 08/27/19 23 9:15 AM EDT documented as of this encounter Care Teams Greenhouse Technician Relationship Specialty Start Date End Date Jojo Jaramillo MD 230 [place] [address] PCP - General Family Medicine 12/19/18 documented as of this encounter
--- OUTSIDE RECORDS SUMMARY | 2024-09-13 15:13 | XMS_ITS | Encounter Summary ---
Author Organization [employer] Address [address] [facility] [address] 7t [place] [address] Care Team Providers Care Stripper Shovel Operator Name Role Phone Jojo Jaramillo MD Primary Care Provider [phone] Reason for Visit * Reason Onset Date Comments Appointment Request 08/17/2024 Encounter Details Date Type Department Care Team ([facility] st Contact Info) Description 08/17/2024 [facility] 230 [place], [place] [phone] Jojo Jaramillo MD 230 [place], [place] [phone] Appointment Request Social History Tobacco Use Types Packs/Day Years [...] encounter Miscellaneous Notes * Telephone Encounter - [place] Nguyen - 08/17/2024 11:33 AM EDT Tc from pt requesting to R/s Apt from 08/17/24. Contact pt at [phone] documented in this encounter Plan of Treatment Upcoming Encounters Date Type Department Care Team (Late st Contact Info) Description 10/19/2024 1:30 PM EDT Clinical Support [facility] MED & PEDS 505 [place] [address] Santa Wade, DAGOBERTO 505 [place] [address] documented as of this encounter Visit Diagnoses Not on filedocumented in this encounter Additional Health Concerns Assessment Noted Time PHQ-9 Depression Total Score: 5 04/16/20 24 7:02 AM EST documented as of this encounter Care Teams Stripper Shovel Operator Relationship Specialty Start Date End Date Jojo Jaramillo MD 230 [place] [address] PCP - General Family Medicine 12/19/18 documented as of this encounter
--- OUTSIDE RECORDS SUMMARY | 2024-09-13 15:13 | XMS_ITS | Encounter Summary ---
Author Organization [employer] Address [address] [facility] [address] 7t [place] [address] Care Team Providers Care Regulatory Affairs Specialist Name Role Phone Jojo Jaramillo MD Primary Care Provider [phone] Encounter Details Date Type Department Care Team (Latest Contact Info) Description 07/21/2021 Abstract [facility] CONVERSIONS Dental, Provider, DDS Social History Tobacco [...] Description 10/19/2024 1:30 PM EDT Clinical Support [facility] MED & PEDS 505 [place] [address] Santa Wade, RN 505 [place] [address] documented as of this encounter Visit Diagnoses Not on filedocumented in this encounter Care Teams Regulatory Affairs Specialist Relationship Specialty Start Date End Date Jojo Jaramillo MD 230 [place] [address] PCP - General Family Medicine 12/19/18 documented as of this encounter
--- OUTSIDE RECORDS SUMMARY | 2024-09-13 15:13 | XMS_ITS | Encounter Summary ---
Author Organization [employer] Address [address] 7t [place] [address] Care Team Providers Care Best Second Jobs Name Role Phone Jojo Jaramillo MD Primary Care Provider [phone] Encounter Details Date Type Department Care Team (Late Contact Info) Description 07/06/2022 Orders Only [facility] [address] [place] [address] Aline Echevarria LPN Social History Tobacco Use [...] 10/19/2024 1:30 PM EDT Clinical Support [facility] [address] [place] [address] Santa Wade, DAGOBERTO [address] [place] [address] documented as of this encounter Procedures Procedure Name Priority Date/Time Associated Diagnosis Comments HEMATOXYLIN AND EOSIN STAIN Routine 07/20/2022 11:21 AM EST GLUCOSE, WHOLE BLOOD Routine 07/20/2022 10:57 AM EST documented in this encounter Results * Hematoxylin and Eosin Stain (07/20/2022 11:21 AM EST) 07/20/2022 11:2 1 AM EST 07/20/2022 12:09 PM EST Narrative [facility] - 07/21/2022 4:07 PM EST ----- ------- Name: Tomy Betancourt ?Age/Sex: 46/M ? : 1975 Unit#: [id number] ?? Attend Dr: Tremayne Pandey ?Re07/20/22 ?Status: DEP SDC ? Location: HO.SSS ?Disch: ? ----- ------- SPEC : [id number] ?RECD: 07/20/22-1209 ? STATUS: ??SOUT ? REQ NUM: [id number] ? ANGELINA: 07/20/22-1121 ? SUBM DR: Tremayne [...] To: ?? Jojo Jaramillo MD ?? [address] ?? [place] [address] ? Tremayne Pandey ?? [address] [place] [address] [address] ?? [place] [address] ?? [phone] ? CONTINUED ON NEXT PAGE ----- ------- Name: Tomy Betancourt ?Age/Sex: 46/M ? : 1975 Unit#: [id number] ?? Attend Dr: Tremayne Pandey ?Re07/20/22 ?Status: DEP SDC ? Location: HO.SSS ?Disch: ? ----- ------- SPEC : [id number] ?RECD: 07/20/22 ? STATUS: ??SOUT ? REQ NUM: [id number] ? ANGELINA: 07/20/22 ? SUBM DR: Tremayne Pandey ? ENTERED: ??07/20/22 ?SP TYPE: Surgical ? OTHR DR: Jojo Jaramillo MD ? ORDERED: ??HE Stain/3, Gross Micro L4, IHC, H. pylori ? ----- ------- Signed (signature on file) Chanel Rosa 07/21/221606 ? ----- ------- ? END OF REPORT ? [facility] External Provider LAB BLO OD ORDERABLES Final Result Performing Organization Address [facility] Co de Phone Number [facility] [address] [place], [place] [phone] * (ABNORMAL) GLUCOSE, WHOLE BLOOD (07/20/2022 10:57 AM EST) Glucose, Whole Blood 129(H) 60 - 115 mg/dL [facility] Comment:METER #: [id number] 07/20/2022 10:5 7 AM EST 07/20/2022 11:00 AM EST [facility] External Provider LAB BLO OD ORDERABLES Final Result Performing Organization Address [facility] Co de Phone Number [facility] [address] [place] [address] [phone] documented in this encounter Visit Diagnoses Not on filedocumented in this encounter Care Teams Best Second Jobs Relationship Specialty Start Date End Date Jojo Jaramillo MD [address] [place] [address] PCP - General Family Medicine 12/19/18 documented as of this encounter
--- OUTSIDE RECORDS SUMMARY | 2024-09-13 15:13 | XMS_ITS | Encounter Summary ---
Author Organization [employer] Address [address] [facility] 7t [place] [address] Care Team Providers Care Knapsack Sprayer Name Role Phone Jojo Jaramillo MD Primary Care Provider [phone] Reason for Referral * Consultation (Urgent) - Authorized Specialty Diagnoses / Procedures Referred By Diamante de souza Referred To Contact Diagnoses Chronic low back pain, unspecified back pain laterality, unspecified whether sciatica present Bilateral leg pain Lumbar spondylosis Jojo Jaramillo MD [address] [place] [address] Phone: tel: fax: [facility] Referral ID Status Reason Start Date Expiration Date Visits Requested Visits Authorized [id number] Authorized Specialty Services Required 08/09/2024 08/09/2025 1 1 Encounter Details Date Type Department Care Team ([facility] st Contact Info) Description 08/09/2024 Orders Only [facility] [address] [place] [address] [phone] Jojo Jaramillo MD [address] [place] [address] [phone] Chronic low back pain, unspecified back pain laterality, unspecified whether sciatica present (Primary Dx); Bilateral leg pain; Lumbar spondylosis Social History Tobacco Use Types Packs/Day Years [...] Upcoming Encounters Date Type Department Care Team ([facility] st Contact Info) Description 10/19/2024 1:30 PM EDT Clinical Support [facility] [address] [place] [address] Santa Wade, DAGOBERTO [address] [place] [address] Scheduled Referrals Name Type Priority Associated Diagnoses Orde r Schedule Referral to Orthopaedic Surgery Outpatient Referral Urgent Chronic low back pain, unspecified back pain laterality, unspecified whether sciatica present Bilateral leg pain Lumbar spondylosis Expected: 08/09/2024 (Approximate), Expires: 08/09/2025 documented as of this encounter Visit Diagnoses Diagnosis Chronic low back pain, unspecified back pain laterality, unspecified whether sciatica present- Primary Bilateral leg pain Pain in soft tissues of limb Lumbar spondylosis Lumbosacral spondylosis without myelopathy documented in this encounter Additional Health Concerns Assessment Noted Time PHQ-9 Depression Total Score: 5 04/16/20 24 7:02 AM EST documented as of this encounter Care Teams Knapsack Sprayer Relationship Specialty Start Date End Date Jojo Jaramillo MD [address] [place] [address] PCP - General Family Medicine 12/19/18 documented as of this encounter
--- OUTSIDE RECORDS SUMMARY | 2024-09-13 15:13 | XMS_ITS | Encounter Summary ---
Author Organization [employer] Address [address] [facility] 7t [place] [address] Care Team Providers Care Die Polisher Name Role Phone Jojo Jaramillo MD Primary Care Provider [phone] Reason for Visit * Reason Comments Med Refill Encounter Details Date Type Department Care Team ([facility] Contact Info) Description 12/06/2022 Refill [facility] [address] [place], [place] [phone] Dima Castillo MD [address] [place] [address] Social History Tobacco Use Types Packs/Day Years [...] Description 10/19/2024 1:30 PM EDT Clinical Support [facility] [address] [place], [place] [phone] Santa Wade RN [address] [place], [place] [phone] documented as of this encounter Visit Diagnoses Not on filedocumented in this encounter Additional Health Concerns Assessment Noted Time PHQ-9 Depression Total Score: 5 08/27/19 23 9:15 AM EDT documented as of this encounter Care Teams Die Polisher Relationship Specialty Start Date End Date Jojo Jaramillo MD [address] [place] [address] PCP - General Family Medicine 12/19/18 documented as of this encounter
--- OUTSIDE RECORDS SUMMARY | 2024-09-13 15:13 | XMS_ITS | Encounter Summary ---
Author Organization [employer] Address [address] [facility] [address] 7t [place] [address] Care Team Providers Care Medical Data Analyst Name Role Phone Jojo Jaramillo MD Primary Care Provider [phone] Encounter Details Date Type Department Care Team ([facility] Contact Info) Description 08/20/2022 Orders Only [facility] [address] [place] [address] Aline Echevarria LPN Social History Tobacco Use [...] 10/19/2024 1:30 PM EDT Clinical Support [facility] [address] [place] [address] Santa Wade, DAGOBERTO [address] [place] [address] documented as of this encounter Visit Diagnoses Not on filedocumented in this encounter Care Teams Medical Data Analyst Relationship Specialty Start Date End Date Jojo Jaramillo MD [address] [place] [address] PCP - General Family Medicine 12/19/18 documented as of this encounter
--- OUTSIDE RECORDS SUMMARY | 2024-09-13 15:13 | XMS_ITS | Encounter Summary ---
Author Organization [employer] Address [address] [facility] 7t [place] [address] Care Team Providers Care Family Manager Name Role Phone Jojo Jaramillo MD Primary Care Provider Encounter Details Date Type Department Care Team (Late Contact Info) Description 12/17/2022 Abstract [facility] [address] [place], [place] [phone] Jojo Jaramillo MD [address] [place], [place] [phone] Social History Tobacco Use Types Packs/Day Years [...] Description 10/19/2024 1:30 PM EDT Clinical Support [facility] [address] [place] [address] Santa Wade, RN [address] [place], [place] [phone] documented as of this encounter Procedures Procedure Name Priority Date/Time Associated Diagnosis Comments COLONOSCOPY Routine 03/03/2022 documented in this encounter Results * Colonoscopy (03/03/2022) Colonoscopy Normal Normal 03/03/2022 [facility] Pcp HEALTH MAINTENANCE Edited Result - Final documented in this encounter Visit Diagnoses Not on filedocumented in this encounter Additional Health Concerns Assessment Noted Time PHQ-9 Depression Total Score: 5 08/27/19 23 9:15 AM EDT documented as of this encounter Care Teams Family Manager Relationship Specialty Start Date End Date Jojo Jaramillo MD [address] [place] [address] PCP - General Family Medicine 12/19/18 documented as of this encounter
--- OUTSIDE RECORDS SUMMARY | 2024-09-13 15:13 | XMS_ITS | Encounter Summary ---
Author Organization [employer] Address [address] [place] [address] Care Team Providers Care Insurance Service Representative Name Role Phone Jojo Jaramillo MD Primary Care Provider [phone] Reason for Visit * Reason Onset Date Comments Medication Question 08/30/2024 Referral 08/30/2024 Encounter Details Date Type Department Care Team ([facility] st Contact Info) Description 08/30/2024 Telephone [facility] MEDICINE [address] [place], [place] [phone] Jojo Jaramillo MD [address] [place], [place] [phone] Medication Question; Referral Social History Tobacco Use Types Packs/Day Years [...] encounter Miscellaneous Notes * Telephone Encounter - Jojo Jaramillo MD - 09/10/2024 2:11 PM EDT referred * Telephone Encounter - Carmen Walker - 09/07/2024 10:49 AM EDT Patient walked in [facility] advised of past messages. Patient said he spoke with PCP about chiropractor and has already tried Pt and ortho. Patient says it hasn't helped him with back pain. Wants possible referral to Chiropractor. Message was sent to DATA REPORT ANALYST about pain medication, Patient aware of upcoming appointment with DATA REPORT ANALYST. * Telephone Encounter - Brandi Pablo RN - 08/31/2024 10:52 AM EDT Telephone call to pt regarding below message, no answer, left voicemail to call back [facility] Pt saw DATA REPORT ANALYST nurse 08/22/24 and message was sent to PCP regarding severe pain plan of care. * Telephone Encounter - Brandi Pablo RN - 08/30/2024 9:05 AM EDT Received message from RIKA Yao clinician regarding pt. She stated that the pt is concerned about not having enough/right supply pain medications. Pt also asking about chiropractor referral. Pt has PT and orthopedic referral on file, no mention of chiropractor in last note. documented in this encounter Plan of Treatment Upcoming Encounters Date Type Department Care Team (Late st Contact Info) Description 10/19/2024 1:30 PM EDT Clinical Support [facility] [address] [place] [address] Santa Wade, RN [address] [place] [address] documented as of this encounter Visit Diagnoses Not on filedocumented in this encounter Additional Health Concerns Assessment Noted Time PHQ-9 Depression Total Score: 5 04/16/20 24 7:02 AM EST documented as of this encounter Care Teams Insurance Service Representative Relationship Specialty Start Date End Date Jojo Jaramillo MD [address] [place] [address] PCP - General Family Medicine 12/19/18 documented as of this encounter
--- OUTSIDE RECORDS SUMMARY | 2024-09-13 15:13 | XMS_ITS | Encounter Summary ---
Author Organization [employer] Address [address] [place] [address] Care Team Providers Care Larry Operator Name Role Phone Jojo Jaramillo MD Primary Care Provider [phone] Reason for Visit * Reason Onset Date Comments Created In Error 03/09/2024 Encounter Details Date Type Department Care Team ([facility] st Contact Info) Description 03/09/2024 Telephone [facility] [address] [place], [place] [phone] Jojo Jaramillo MD [address] [place], [place] [phone] Created In Error Social History Tobacco Use [...] Description 10/19/2024 1:30 PM EDT Clinical Support [facility] [address] [place] [address] Santa Wade, RN [address] [place] [address] documented as of this encounter Visit Diagnoses Not on filedocumented in this encounter Additional Health Concerns Assessment Noted Time PHQ-9 Depression Total Score: 19 024 10:43 AM EDT documented as of this encounter Care Teams Larry Operator Relationship Specialty Start Date End Date Jojo Jaramillo MD [address] [place] [address] PCP - General Family Medicine 12/19/18 documented as of this encounter
--- OUTSIDE RECORDS SUMMARY | 2024-09-13 15:13 | XMS_ITS | Encounter Summary ---
Author Organization [employer] Address [address] [facility] 7t [place] [address] Care Team Providers Care Ant[employer] Automobiles Repairer Name Role Phone Jojo Jaramillo MD Primary Care Provider [phone] Encounter Details Date Type Department Care Team (Late Contact Info) Description 10/09/2022 Orders Only [facility] MEDICINE [address] [place], [place] [phone] Norma Ram LPN Social History Tobacco Use [...] Description 10/19/2024 1:30 PM EDT Clinical Support [facility]EDS [address] [place] [address] Santa Wade RN [address] [place] [address] documented as of this encounter Visit Diagnoses Not on filedocumented in this encounter Additional Health Concerns Assessment Noted Time PHQ-9 Depression Total Score: 5 08/27/19 23 9:15 AM EDT documented as of this encounter Care Teams [employer] Repairer Relationship Specialty Start Date End Date Jojo Jaramillo MD [address] [place] [address] PCP - General Family Medicine 12/19/18 documented as of this encounter
--- OUTSIDE RECORDS SUMMARY | 2024-09-13 15:13 | XMS_ITS | Clinical Summary ---
Author Organization [employer] Address [address] [facility] [address] [place] [address] Care Team Providers Care Pourer Off Name Role Phone Jojo Jaramillo MD Primary Care Provider Allergies No known active allergies Medications * This document contains information received from the source organization and may not represent a complete record from that organization. cholecalciferol (Vitamin D-3) 25 MCG (1000 UT) [...] smoking cessation. 100 lozenge 11/23/19 24 Active escitalopram (Lexapro) 20 MG tablet [...] severe pain. 56 tablet 02/28/20 24 Active traZODone (Desyrel) 50 MG tablet TAKE 1/2 TABLET BY MOUTH EVERY DAY AT BEDTIME NEEDED FOR SLEEP 02/23/20 24 Active gabapentin (Neurontin) 300 MG capsule Take [...] MEAL 90 tablet 3 07/07/19 25 Active TRUEplus Lancets 33G [facility] USE DIRECTED TO TEST BLOOD SUGAR TWICE DAILY NEEDED 100 each 11 08/08/19 25 Active lisinopril 20 MG tablet TAKE 1 TABLET BY MOUTH EVERY DAY IN THE MORNING 90 tablet 3 08/18/19 25 Active cyclobenzaprine (Flexeril) 5 MG tablet TAKE 1 TABLET BY MOUTH EVERY DAY NEEDED 30 tablet 5 08/31/19 25 Active clonazePAM (KlonoPIN) 1 MG tablet TAKE 1 TABLET BY MOUTH THREE TIMES DAILY IN THE MORNING, AT NOON, AND AT BEDTIME NEEDED FOR ANXIETY 90 tablet 09/08/19 25 Active cyclobenzaprine (Flexeril) 5 MG tablet TAKE 1 TABLET BY MOUTH EVERY DAY NEEDED 30 tablet 5 11/26/19 24 025 Discontinued lisinopril 20 MG tablet Take 20 mg by mouth in the morning. 03/29/20 24 025 Discontinued clonazePAM (KlonoPIN) 1 MG tablet TAKE 1 TABLET BY MOUTH THREE TIMES DAILY IN THE MORNING, AT NOON, AND AT BEDTIME NEEDED ANXIETY 90 tablet 08/08/19 25 025 Discontinued Active Problems Problem Noted Date Diagnosed Date Long-term current use of opiate analgesic 2024 Chronic pain 07/19/2024 Assessment & Plan (07/19/2024 4:53 AM EST): - consider evaluating and treating for fibromyalgia - patient has already tried acupuncture - patient has tried PT - recommended to reschedule appointment with [facility] nurse - recommended to consider trying duloexetine [...] continue clonazepam and escitalopram - referred to [facility] RN for clonazepam - patient declines behavioral [...] continue clonazepam and escitalopram - refer to [facility] RN for clonazepam - patient declines behavioral [...] get, needs authorization - schedule appointment with [facility] nurse - been going to PT without [...] 50 mg BID - schedule appointment with [facility] nurse Esophageal reflux 10/08/2023 Gastritis 10/08/2023 Ingrown toenail of both feet 09/15/2023 Assessment & Plan (10/12/2023 11:27 AM EDT): - patient was seen by dye tub tender recently Psoriasis 11/06/2022 Assessment & Plan (04/12/2024 [...] 11:26 AM EDT): - was evaluated by [facility], Dr. Aquino - prescribed Betamethasone, which has been effective - upcoming appointment with Dr. Santos in Jul 2023 Assessment & Plan (06/27/2023 12:56 PM EST): - was evaluated by [facility], Dr. Aquino - prescribed Betamethasone, which has been effective - upcoming appointment with Dr. Santos in Jul 2023 Assessment & Plan (12/15/2022 10:52 AM EDT): - was evaluated by [facility], Dr. Aquino - prescribed Betamethasone, which has been effective Gastroesophageal reflux disease 08/26/2022 Assessment & Plan (01/18/2024 10:32 AM EDT): -Following with GI, Dr. Pandey, last seen 07/20/22. Abdominal Ultrasound on [...] Plan (12/15/2022 10:49 AM EDT): -Following with GI, Dr. Pandey, last seen 07/20/22. Abdominal Ultrasound on [...] Plan (08/26/2022 9:04 AM EDT): -Following with GI, Dr. Pandey, last seen 07/20/22. Abdominal Ultrasound on [...] (04/16/2024 7:15 AM EST): -Previously connected with [facility] -GAD7 score 19 in Jan 2024; he declined to return to behavioral health service provider as he speaks with integrated behavioral health service at work and has copay for each visit -GAD7 score 4 today -continue escitalopram 10 mg daily -agreed to prescribe clonazepam 1 mg tid under [facility] agreement -reassess Dx Assessment & Plan (01/21/2024 3:50 PM EDT): -Previously connected with [facility] -GAD7 score 19 today; he declines to return to behavioral health service provider as he speaks with integrated behavioral health service at work and has copay for each visit -continue escitalopram 10 mg daily -agreed to prescribe clonazepam 1 mg tid under [facility] agreement -reassess Dx Assessment & Plan (10/12/2023 11:26 AM EDT): Currently connected with [facility] Continue current treatment per Dr. Marr Patient is considering about not continuing with the agency because of high copay for each visit. Assessment & Plan (06/27/2023 12:53 PM EST): Currently connected with [facility] Continue current treatment per Dr. Marr Patient [...] to fear of reinjuring ACL -Seen by [facility] on 11/06/22 -Dx right knee patellofemoral [...] to fear of reinjuring ACL -Seen by [facility] on 11/06/22 -Dx right knee patellofemoral OA - patient has tried NSAIDs, APAP, and celecoxib, which were all ineffective - will prescribe tramadol under [facility] agreement Assessment & Plan (12/21/2022 11:53 AM EDT): - h/o ACL tear -Pt is hesitant to receive steroid injection -Pt stopped being physically active due to fear of reinjuring ACL -Seen by [facility] on 11/06/22 -Dx right knee patellofemoral [...] 3 months - patient was referred to wellness consultant but he is not enthusiastic to go to the appointment Assessment & Plan (04/10/2024 11:54 AM EST): Goal BP < 140/90 per JNC-8, <130/80 per ACC/AHA, BP is not at goal -Continue Lisinopril 30 mg daily -Work on lifestyle modifications -Improve Medication adherence -Advised to continue checking home BP -f/u in 3 months - patient was referred to wellness consultant but he is not enthusiastic to go to the appointment Assessment & Plan (01/18/2024 4:05 PM EDT): Goal BP < 140/90 per JNC-8, <130/80 per ACC/AHA, BP is not at goal -Continue Lisinopril 20 mg daily -Work on lifestyle modifications -Improve Medication adherence -Advised to continue checking home BP -f/u in 3 months - patient was referred to wellness consultant but he is not enthusiastic to go [...] X-ray in 2016 was unremarkable - He has completed another [...] lifestyle modification Last eye exam: 05/01/24 at [facility]. No retinopathy Last foot exam: 06/22/23 Last lipid profile: 08/26/23 Last microalbumin test- 08/26/23 no microalbuminuria Follow up in 4-6 mo or prn Assessment & Plan (04/12/2024 8:43 PM EST): - A1c 5.8% on 01/18/24 -Continue Metformin 500 mg daily -Encouraged patient to improve medication. -Continue working on lifestyle modification Last eye exam: 07/31/22 at [facility]. No retinopathy Last foot exam: [...] lifestyle modification Last eye exam: 07/31/22 at [facility]. No retinopathy Last foot exam: [...] lifestyle modification Last eye exam: 07/31/22 at [facility]. No retinopathy Last foot exam: [...] lifestyle modification Last eye exam: 07/31/22 at [facility]. No retinopathy Last foot exam: [...] lifestyle modification Last eye exam: 07/31/22 at [facility]. No retinopathy Last foot exam: [...] lifestyle modification Last eye exam: 07/31/22 at [facility]. No retinopathy Last foot exam: 08/21/21 Last lipid profile: 08/30/20 TC 169; TG 59; HDL 50; LDL 105 Last microalbumin test- 08/30/20 no microalbuminuria Depression Assessment & Plan (04/16/2024 7:14 AM EST): -Previously connected with [facility] -PHQ9 score 19 in January 2024; he declines to return to behavioral health service provider as he speaks with integrated behavioral health service at work and has copay for each visit -PHQ9 score has improved today, score 5 -continue escitalopram 10 mg daily -agreed to prescribe clonazepam 1 mg tid under [facility] agreement -reassess Dx Assessment & Plan (01/21/2024 3:50 PM EDT): -Previously connected with [facility] -PHQ9 score 19 today; he declines to return to behavioral health service provider as he speaks with integrated behavioral health service at work and has copay for each visit -continue escitalopram 10 mg daily -agreed to prescribe clonazepam 1 mg tid under [facility] agreement -reassess Dx Assessment & Plan (10/12/2023 11:26 AM EDT): -Previously tried SSRI, recently, Lexapro which was ineffective. Pt is hesitant to try Buspirone or hydroxyzine -Engaged in Counseling at [facility] Provider, and started seeing psychiatrist -Continue [...] Buspirone or hydroxyzine -Engaged in Counseling at [facility] Provider, and started seeing psychiatrist -Continue current Behavioral health services -Continue judicious use of clonazepam; recommended to take it at night if he cannot sleep due to anxiety Assessment & Plan (12/21/2022 11:57 AM EDT): -Previously tried SSRI, recently, Lexapro which was ineffective. Pt is hesitant to try Buspirone or hydroxyzine -Engaged in Counseling at [facility] Provider, and started seeing psychiatrist -Continue current Behavioral health services -Continue judicious use of clonazepam; recommended to take it at night if he cannot sleep due to anxiety Assessment & Plan (08/26/2022 10:02 AM EDT): -Previously tried SSRI, recently, Lexapro which was ineffective -Engaged in Counseling at [facility] Provider -Continue Behavioral health services -Changed [...] EDT): - work on lifestyle modifications Encounters * This document contains information received from the source organization and may not represent a complete record from that organization. Date Type Department Care Team Description 09/13/2024 Refill [facility] [address] [place] [address] Santa Wade, DAGOBERTO Arthralgia of both knees; Chronic midline low back pain, unspecified whether sciatica present 09/12/2024 5:40 PM EDT Office Visit [facility] [address] [place] [phone] Dima Castillo MD Multilevel spondylosis (Primary Dx); Chronic pain of right knee 09/12/2024 Telephone [facility] [address] [place] [address] Dima Castillo MD 09/10/2024 Orders Only [facility] [address] [place] [address] Jojo Jaramillo MD Chronic low back pain, unspecified back pain laterality, unspecified whether sciatica present (Primary Dx); Chronic pain of right knee; Bilateral leg pain 09/07/2024 Telephone [facility] [address] [place] [address] Santa Wade RN 09/07/[address] [address] Jojo Jaramillo MD Medication Question 09/06/[address] [address] Jojo Jaramillo MD 09/06/[address] [address] Najma Schafer Provide suppor for needs. 08/30/[address] [address] Jojo Jaramillo MD Medication Question; Referral 08/30/2024 Refill [facility] [address] [place] [phone] Jojo Jaramillo MD 08/22/2024 2:00 PM EDT Clinical Support [facility] [address] [place] [address] Santa Wade, DAGOBERTO Anxiety (Primary Dx); Long-term current use of opiate analgesic 08/22/2024 Telephone [facility] [address] [place] [address] Santa Wade, DAGOBERTO 08/22/2024 Telephone [facility] [address] [place] [address] Santa Wade, DAGOBERTO 08/22/2024 Travel 08/17/2024 Travel 08/17/2024 Telephone [facility] [address] [place] [address] Santa Wade, RN continuity clerk 08/17/2024 Telephone [facility] [address] [facility] [address] Jojo Jaramillo MD Appointment Request 08/17/2024 Telephone [facility] [address] [facility] [place] [address] Santa Wade, RN continuity clerk 08/17/2024 Refill [facility] [address] [place] [address] Jojo Jaramillo MD 08/09/2024 Orders Only [facility] [address] [place] [address] Jojo Jaramillo MD Chronic low back pain, unspecified back pain laterality, unspecified whether sciatica present (Primary Dx); Bilateral leg pain; Lumbar spondylosis 08/07/2024 Refill [facility] [address] [place] [address] Jojo Jaramillo MD 07/13/2024 Travel 07/13/2024 Telephone [facility] [address] [facility] [place] [address] Santa Wade, DAGOBERTO continuity clerk 07/11/2024 3:00 PM EST Office Visit [facility] [address] [address] [place] [address] Jojo Jaramillo MD Essential hypertension (Primary Dx); Type 2 diabetes mellitus without complication, unspecified whether manager intermediate insulin use (CMS/HCC); Dyslipidemia; Mood disorder (CMS/HCC); Dietary counseling; Exercise counseling; Overweight; Other chronic pain; Chronic low back pain, unspecified back pain laterality, unspecified whether sciatica present 07/11/2024 Travel 07/10/2024 Telephone [facility] [address] [place] [address] Darlyn Ma MA CHART PREP 07/06/2024 Telephone [facility] [address] [place] [address] Jojo Jaramillo MD Med Refill; continuity clerk 06/22/2024 Telephone [facility] [address] [place] [address] Darlyn Ma [place] july recall 06/21/2024 3:20 PM EST Office Visit [facility] [address] [place] [address] Violet Morales MD COVID-19 (Primary Dx); Type 2 diabetes mellitus without complication, unspecified whether assisted insulin use ([facility]) from Last 3 Months Immunizations Name Administration [...] Not Asked; Counseling Given: Not Answered Alcohol Use Standard Drinks/Week Comments Never 0 [...] 14 09/12/2024 4:43 PM EDT Oxygen Saturation 98% 07/11/2024 3:18 PM EST Inhaled Oxygen Concentration - - Weight 83.9 kg (185 lb) 09/12/2024 4:43 PM EDT Height 172.7 cm (5' 8 ) 09/12/2024 4:43 PM EDT Body Mass Index 28.13 09/12/2024 4:43 PM EDT Plan of Treatment Upcoming Encounters Date Type Department Care Team (Late st Contact Info) Description 10/19/2024 1:30 PM EDT Clinical Support [facility] [address] [place] [address] Santa Wade, RN [address] [place] [address] Health Maintenance Due Date Last Done Comments CT Colonography 1975 FIT DNA/Cologuard 1975 FIT 1975 FOBT 1975 Sigmoidoscopy 1975 Family Planning (PISQ) 12/10/1990 Pneumococcal Vaccine: Pediatrics (0 to 5 Years) and At-Risk Patients (6 to 49) Years) (2 of 2 - PCV) 10/21/2013 10/21/2012 COVID-19 Vaccine (3 - season) 2024 06/27/2020, 05/30/2020 Influenza Vaccine (#1) [...] Screening 04/16/2025 04/16/2024, 04/16/20 24 Tobacco Screening 09/12/2025 09/12/2024 Zoster Vaccines (1 of 2) 12/10/2025 Eye [...] Name Priority Date/Time Associated Diagnosis Comments POCT ERICK-14 URINE DRUG SCREEN Routine 08/22/2024 2:06 PM EDT Long-term current use of opiate analgesic Anxiety MR LUMBAR SPINE WO CONTRAST Routine 08/07/2024 5:30 PM EST Chronic low back pain, unspecified back pain laterality, unspecified whether sciatica present POCT GLYCOSYLATED HEMOGLOBIN (HGB A1C) Routine 07/11/2024 3:21 PM EST Type 2 diabetes mellitus without complication, unspecified whether assisted insulin use ([facility]) POCT GLUCOSE Routine 07/11/2024 3:20 PM EST Type 2 diabetes mellitus without complication, unspecified whether assisted insulin use (CMS/[facility]) POCT GLUCOSE Routine 06/21/2024 3:54 PM EST Type 2 diabetes mellitus without complication, unspecified whether manager intermediate insulin use (CMS/HCC) POCT INFLUENZA A (ID NOW RAPID MOLECULAR) Routine 06/21/2024 3:54 PM EST COVID-19 POCT INFLUENZA B (ID NOW RAPID MOLECULAR) Routine 06/21/2024 3:54 PM EST COVID-19 POC RAMOS ID NOW STREP A Routine 06/21/2024 3:54 PM EST COVID-19 ALBUMIN, RANDOM URINE W/CREATININE Routine 08/26/2023 1:26 PM EDT Type 2 diabetes mellitus without complication, unspecified whether assisted insulin use (CMS/HCC) LIPID PANEL WITH REFLEX TO DIRECT LDL Routine 08/26/2023 1:22 PM EDT Type 2 diabetes mellitus without complication, unspecified whether manager intermediate insulin use (CMS/HCC) HEPATITIS C AB W/REFL [...] Recently Relevant to Health Maintenance Results * POCT ERICK-14 Urine Drug Screen (08/22/2024 2:06 PM EDT) Urine Urine specimen obtained by clean catch procedure / Unknown 08/22/2024 2:06 PM EDT Narrative Santa Wade RN - 08/22/2024 2:06 PM EDT negative AMP, BAR, BUP, BZO, KAREN, FTY, MDMA, MET, MOP, MTD, OXY, PCP, TCA, THC. Lot# [id number] Exp: 01-24-26 us Jojo Jaramillo MD POINT OF CARE TEST ENTER/EDIT OR DERABLES Final Result * MR Lumbar Spine w/o Contrast (08/07/2024 5:30 PM EST) Anatomical Region Laterality Modality Spine, L-spine Magnetic Resonan ce 08/07/2024 5:30 PM EST Narrative 08/08/2024 8:01 AM EST ? [facility] ?[address] ?[place] [address] ? Magnetic Resonance Report ? Signed ? Patient: Tomy King ?MR#: [id number] ?? [id number] ? : 1975 ?Acct:[id number] ? Age/Sex: 48 / M ?ADM Date: 08/07/24 ? Loc: HO.MRI ? Attending Dr: Jojo Jaramillo MD ? Ordering Physician: Jojo Jaramillo MD ?? Date of Service: 08/07/24 ?? Procedure(s): MR lumbar spine wo con ?? Accession Number(s): [id number] ? cc: Jojo Jaramillo MD ? EXAMINATION: ?? MR LUMBAR SPINE WITHOUT CONTRAST ? CLINICAL INFORMATION: ?? Low back pain radiating to lower extremities. Weakness and numbness. ? COMPARISON: ?? None available. ? TECHNIQUE: ?? MRI of the lumbar spine was obtained using routine sequences without ?? contrast. ? FINDINGS: ?? Last rib-bearing vertebra labeled T12. ? No bone marrow STIR signal abnormality. ?? There is disc desiccation at L3-4, L5-S1 and L1-2 levels. ?? The alignment is normal. ?? The conus medullaris ends at superior endplate of L1 with normal signal. ? T12-L1: ?? No disc herniation. No neuroforamina stenosis. ? L1-2: ?? Broad-based disc bulging. No central spinal canal stenosis or ?? neuroforamina stenosis. ? L2-3: ?? There is broad-based disc bulging. Reduced AP diameter of the thecal ?? sac. Facet joint hypertrophy. No compression upon neural elements. ? L3-4: ?? Broad-based disc bulging. Facet joint and ligamentum flavum ?? hypertrophy. Reduced AP diameter of the thecal sac and the neural ?? foramina. ? L4-5: ?? Broad-based disc bulging. Facet joint hypertrophy. Reduced AP diameter ?? of the thecal sac and neuroforamina, more accentuated on the left side. ? L5-S1: Broad-based bulging. Facet joint hypertrophy. No central spinal ?? canal stenosis. Bilateral neuroforamina stenosis. ? No prevertebral compartment hematoma, mass or fluid collection. ? MR/MR lumbar spine wo con ?? IMPRESSION: ?? Multilevel lumbar spondylosis more conspicuous at L5-S1 and to a lesser ?? extent L3-4 and L4-5 levels likely encroaching the left-sided exiting ?? nerve roots ? Electronically signed by: ??Talon Madrigal MD ??08/08/2024 07:57 AM ?? EST ? Dictated By: ?Talon Turk MD ? Signed By: ?<Electronically signed by Talon Knutson MD in OV> ? 08/08/24 0757 ? DD/ 1730 ? TD/TT: 08/07/24 1813 ? Field Marketing Specialist: ? Procedure Note Donshenater, Image - 08/08/2024 [place] [address] Magnetic Resonance Report Signed Patient: Wilbur King#: [id number] : 1975Acct:[id number] Age/Sex: 48 / MADM Date: 08/07/24 Loc: HO.MRI Attending Dr: Jojo Jaramillo MD Ordering Physician: Jojo Jaramillo MD Date of Service: 08/07/24 Procedure(s): MR lumbar spine wo con Accession Number(s): [id number] cc: Jojo Jaramillo MD EXAMINATION: MR LUMBAR SPINE WITHOUT CONTRAST CLINICAL INFORMATION: Low back pain radiating to lower extremities. Weakness and numbness. COMPARISON: None available. TECHNIQUE: MRI of the lumbar spine was obtained using routine sequences without contrast. FINDINGS: Last rib-bearing vertebra labeled T12. No bone marrow STIR signal abnormality. There is disc desiccation at L3-4, L5-S1 and L1-2 levels. The alignment is normal. The conus medullaris ends at superior endplate of L1 with normal signal. T12-L1: No disc herniation. No neuroforamina stenosis. L1-2: Broad-based disc bulging. No central spinal canal stenosis or neuroforamina stenosis. L2-3: There is broad-based disc bulging. Reduced AP diameter of the thecal sac. Facet joint hypertrophy. No compression upon neural elements. L3-4: Broad-based disc bulging. Facet joint and ligamentum flavum hypertrophy. Reduced AP diameter of the thecal sac and the neural foramina. L4-5: Broad-based disc bulging. Facet joint hypertrophy. Reduced AP diameter of the thecal sac and neuroforamina, more accentuated on the left side. L5-S1: Broad-based bulging. Facet joint hypertrophy. No central spinal canal stenosis. Bilateral neuroforamina stenosis. No prevertebral compartment hematoma, mass or fluid collection. MR/MR lumbar spine wo con IMPRESSION: Multilevel lumbar spondylosis more conspicuous at L5-S1 and to a lesser extent L3-4 and L4-5 levels likely encroaching the left-sided exiting nerve roots Electronically signed by: Talon Madrigal MD 08/08/2024 07:57 AM EST Dictated By: Talon Turk MD Signed By: <Electronically signed by Talon Knutson MDin OV> 08/08/24 0757 DD/ 1730 TD/TT: 08/07/24 1813 Field Marketing Specialist: Jojo Jaramillo MD IMG MRI PROCEDURES Final Result * (ABNORMAL) POCT glycosylated hemoglobin (Hgb A1c) (07/11/2024 3:21 PM EST) Hemoglobin A1C 6.3(A) 4.0 - 6.0 % QC Media Lot # [id number] Lot# Expiration Date [id number] Blood Capillary blood specimen / Unknown 07/11/2024 3:21 PM EST Jojo Jaramillo MD POINT OF CARE TEST ENTER/EDIT OR DERABLES Final Result * POCT glucose manually resulted (07/11/2024 3:20 PM EST) Only the most recent of2 resultswithin the time period is included. [facility] Glucose Blood, POC 137 60 - 200 mg/dL QC Media Lot # [id number] Lot# Expiration Date [id number] Blood Capillary blood specimen / Unknown 07/11/2024 3:20 PM EST Jojo Jaramillo MD POINT OF CARE TEST ENTER/EDIT OR DERABLES Final Result * POCT Rapid Influenza B RAMOS ID NOW (06/21/2024 3:54 PM EST) [facility] Influenza B Negative Negative, Indeterminate [facility] Swab 06/21/2024 3:54 PM EST Violet Morales MD POINT OF CARE TEST ENTER /EDIT ORDERABLES Final Result Performing Organization Address [facility]/ZIP Co de Phone Number [facility] [address] [place] [phone] * POCT Rapid Influenza A RAMOS ID NOW (06/21/2024 3:54 PM EST) [facility] Influenza A Negative Negative, Indeterminate [facility] Swab 06/21/2024 3:54 PM EST Result [facility] Violet Morales MD POINT OF CARE TEST ENTER /EDIT ORDERABLES Final Result Performing Organization Address [facility] Co de Phone Number [facility] [address] [place] [phone] * POCT Rapid Strep A RAMOS ID NOW (06/21/2024 3:54 PM EST) [facility] Rapid Strep A Screen Negative Negative, None Detected [facility] Swab 06/21/2024 3:54 PM EST us Violet Morales MD POINT OF CARE TEST ENTER /EDIT ORDERABLES Final Result Performing Organization Address [facility] Co de Phone Number [facility] [address] [place] [phone] * Albumin, Random Urine W/Creatinine (08/26/2023 1:26 PM EDT) Creatinine, Urine 172.30 mg/dL [facility] Microalbumin Urine 6.0 mg/L [facility] Microalbum Creatinine Ratio Ur 3.4 <30 ug/mg cr [facility] Comment:Albumin/Creatinine R atio Reference Ranges: Normal: < 30 ug/mg creatinine Microalbuminuria: 30 - 300 ug/mg creatinineClinical Albuminuria: > 300 ug/mg creatinine Urine 08/26/2023 1:26 PM EDT 08/26/2023 4:31 PM EDT us Jojo Jaramillo MD LAB URINE ORDERABLES Final Resul t Performing Organization Address [facility] Co de Phone Number [facility] [address] [place] [phone] * (ABNORMAL) Lipid Panel with Reflex to Direct LDL (08/26/2023 1:22 PM EDT) Triglycerides 154(H) <150 mg/dL [facility] Comment:Desirable Triglyceri de: less than 150 mg/dLBorderline High Triglyceride 150-199 mg/dLHigh Triglyceride: 200-499 mg/dLVery High Triglyceride: greater than or equal to 5OO mg/dL Cholesterol 235(H) <200 mg/dL [facility] Comment:Desirable Cholestero l: less than 200 mg/dLBorderline High Cholesterol: 200-239 mg/dLHigh Cholesterol: greater than 239 mg/dL LDL Cholesterol Calculated 148(H) <100 mg/dL [facility] Comment:Desirable LDL: less than 100 mg/dLNear Optimal/Above Optimal LDL: 110- 129 mg/dLBorderline High LDL: 130-159 mg/dLHigh LDL: 160-189 mg/dLVery High LDL: greater than or equal to 190 mg/dL HDL Cholesterol 57 >40 mg/dL [facility] Comment:Desirable HDL: great er than 40 mg/dL Note: This HDL assay may give artificially low results in patients with liver disease. Blood 08/26/2023 1:22 PM EDT 08/26/2023 3:59 PM EDT Jojo Jaramillo MD LAB BLOOD ORDERABLES Final Resul t Performing Organization Address [facility] Co de Phone Number [facility] [address] [place] [phone] * Hepatitis C Antibody with Reflex to HCV, RNA, Quantitative, Real-Time PCR (08/26/2023 1:20 PM EDT) Hepatitis C Antibody Nonreactive Nonreactive [facility] Comment:Antibodies to HCV no t detected; does not exclude early acuteHCV infection. Blood Venous blood specimen / Unknown 08/26/2023 1:20 PM EDT 08/26/2023 3:59 PM EDT Jojo Jaramillo MD LAB BLOOD ORDERABLES Final Resul t Performing Organization Address [facility] Co de Phone Number [facility] [address] [place] [phone] * HIV-1/2 Antigen and Antibodies, Fourth Generation, with Reflexes (08/26/2023 1:20 PM EDT) HIV AB/AG Nonreactive Nonreactive [facility] Comment:HIV-1 p24 Ag and/or HIV-1/HIV-2 Ab not detected.A test result that is nonreactive does not exclude thepossibility of exposure to or infection with HIV-1 and/orHIV-2. Nonreactive results in this assay for individualswith prior exposure to HIV-1 and/or HIV-2 may be due toantigen and antibody levels that are below the limit ofdetection of this assay.The ImmuMetrix HIV Ag/Ab Combo assay result andsupplemental assay results should be interpreted inconjunction with the patient's clinical presentation,history and other laboratory results. If the results areinconsistent with clinical evidence, additional testing issuggested to confirm the result. Blood Venous blood specimen / Unknown 08/26/2023 1:20 PM EDT 08/26/2023 3:59 PM EDT Jojo Jaramillo MD LAB BLOOD ORDERABLES Final Resul t [facility] [address] [place] [phone] * Colonoscopy (03/03/2022) Colonoscopy Normal Normal 03/03/2022 [facility] Unassigned Pcp HEALTH MAINTENANCE Edited Result - Final from Last 3 Months or Most Recently Relevant to Health Maintenance Insurance [facility] , [facility] [address] [place] [address] [facility] Care Teams Pourer Off Relationship Specialty Start Date End Date Jojo Jaramillo MD [address] [place] [phone] PCP - General Family Medicine 12/19/18
--- OUTSIDE RECORDS SUMMARY | 2024-09-13 15:13 | XMS_ITS | Encounter Summary ---
Author Organization [employer] Address [address] [place] [address] Care Team Providers Care Supervisor Assembly Department Name Role Phone Jojo Jaramillo MD Primary Care Provider [phone] Encounter Details Date Type Department Care Team (Latest Contact Info) Description 03/27/2019 Abstract [facility] Dental, Provider, DDS Social History [...] Description 10/19/2024 1:30 PM EDT Clinical Support [facility] [address] [place] [address] Santa Wade, RN [address] [place] [phone] documented as of this encounter Visit Diagnoses Not on filedocumented in this encounter Care Teams Supervisor Assembly Department Relationship Specialty Start Date End Date Jojo Jaramillo MD [address] [place] [phone] PCP - General Family Medicine 12/19/18 documented as of this encounter
== END 2024-09-13 13:47 | disposition home or self-care (01) ==
LOC: HO.HNS 13:07
PROVIDERS: PCP Family Medicine; Referring Provider Family Medicine; Visit Provider Physician Assistant
DX: M54.50 Low back pain, unspecified (principal)
CPT/HCPCS: 99204

== ENCOUNTER → 2024-09-13 13:03 | Outpatient (BNVA) | payer OTHER, SELFPAY | PROVIDERS: PCP Family Medicine; Visit Provider Physician Assistant ==

== ENCOUNTER 2024-09-19 17:49 | Emergency (ER) | payer OTHER, SELFPAY ==
--- NOTE | ~2024-09-19 | XR_ITS ---
CLINICAL HISTORY: pain 3 views lumbar spine Comparison: MRI of the lumbar spine from 08/07/2024. Findings: No significant change in vertebral heights are alignments of 5 lumbar vertebrae. Redemonstration of the multifocal facet arthropathy, greater than expected for age. Vascular calcifications noted. 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 IMPRESSION: Multifocal facet arthropathy by radiographs. This document has been electronically signed by: Malcolm Hayward MD on 09/19/2024 20:54:06
[2024-09-19 18:14] VITALS: BP 105/71; PULSE 95; RESP 16; TEMP 36.3; O2SAT 95; BMI 27.4
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
[2024-09-19] MEDS: methocarbamoL 750 MG TABLET 1500 MG PO (20:47)
--- NOTE | 2024-09-19 20:58 | PC.NURSE ---
While medicating the patient, he took the Robaxin, refused Ibuprofen. Then he dropped the given Robaxin on the floor accidentally, so I got him new pills, and apparently it's all part of the system . I asked him what he meant, but he didn't clarify. And he's mad because he waited 5 or 6 hours for this bullshit . He also stated Tramadol is like Tylenol or water for me. I need something stronger . DAVID Barrett aware of interaction.
[2024-09-19 21:24] VITALS: BP 105/71; PULSE 95; RESP 16; TEMP 36.3; O2SAT 95
== END 2024-09-19 21:25 | disposition home or self-care (01) ==
PROVIDERS: Emergency Provider Emergency Medicine; PCP Family Medicine
DX: S39.012A Strain of muscle, fascia and tendon of lower back, initial encounter (principal); I10 Essential (primary) hypertension; E11.9 Type 2 diabetes mellitus without complications; V89.2XXA Person injured in unspecified motor-vehicle accident, traffic, initial encounter; Y93.9 Activity, unspecified; Y92.410 Unspecified street and highway as the place of occurrence of the external cause; Y99.9 Unspecified external cause status
CPT/HCPCS: 72100; 99282; 99283

== ENCOUNTER → 2024-09-19 20:14 | Outpatient (BNV) | payer OTHER, SELFPAY | PROVIDERS: Emergency Provider Emergency Medicine; PCP Family Medicine; Visit Provider Radiology Neuroradiology | DX: M46.96 Unspecified inflammatory spondylopathy, lumbar region (principal) | CPT/HCPCS: 72100 ==

== ENCOUNTER 2024-11-26 00:29 | Emergency (ER) | payer OTHER, SELFPAY ==
--- NOTE | ~2024-11-26 | XR_ITS ---
CLINICAL HISTORY: fall LEFT ANKLE X-RAYS COMPARISON: None provided. FINDINGS: A total of 3 views of the left ankle were obtained. Exam is mildly limited due to patient positioning. No evidence of an acute fracture or dislocation. No metallic foreign body. IMPRESSION: 1. No acute disease. This document has been electronically signed by: Tomy Elliott M.D. on 11/26/2024 02:34:43
[2024-11-26 00:36] VITALS: BP 118/81; PULSE 121; RESP 20; TEMP 36.6; O2SAT 96; BMI 28.1
[2024-11-26 01:02] LABS: Basophils Percent Auto 0.7 % (0-2); Eosinophils Absolute Auto 0.2 X10*3/uL (0.0-0.4); Eosinophils Percent Auto 4.2 % (0-4); Hematocrit 41.4 % (42.0-52.0); Hemoglobin 14.6 g/dl (14.0-18.0); Imm Gran Abs Auto 0.01 X10*3/uL (0.00-0.03); Imm Gran Pct Auto 0.2 % (0.0-0.4); Lymphocytes Absolute Auto 1.1 X10*3/uL (1.2-4.9); Lymphocytes Percent Auto 23.5 % (20-40); MANUAL DIFF FLAG NO; Mean Corpuscular HGB Conc 35.3 g/dl (31.0-36.0); Mean Corpuscular Hemoglobin 30.4 pg (27.0-33.0); Mean Corpuscular Volume 86.3 fL (80.0-98.0); Monocytes Absolute Auto 0.4 X10*3/uL (0.1-1.2); Monocytes Percent Auto 9.7 % (2-11); Neutrophils Absolute Auto 2.8 x10*3/uL (2.0-8.3); Neutrophils Percent Auto 61.7 % (45-73); Platelet Count 180 X10*3/uL (160-400); Red Cell Distribution Width 13.2 % (11.0-16.0); White Blood Count 4.6 X10*3/uL (4.8-10.8)
[2024-11-26 01:17] LABS: Alanine Aminotransferase 264 U/L (0-40); Albumin Level 3.7 g/dL (3.5-5.0); Alkaline Phosphatase 49 U/L (39-117); Anion Gap 13 (12-20); Aspartate Amino Transferase 242 U/L (5-37); Bilirubin Total 1.1 mg/dL (0.0-1.0); Blood Urea Nitrogen 15 mg/dL (9-16); Calcium 9.3 mg/dL (8.4-10.2); Carbon Dioxide 26 mmol/L (22-29); Chloride 105 mmol/L (96-108); Creatinine Clr Calc Pharmacy 128.8; Estimated Glomerular Filt Rate > 60; Glucose Random 192 mg/dL (60-115); Potassium 3.4 mmol/L (3.3-5.1); Sodium 141 mmol/L (135-145); Total Protein 6.2 g/dL (6.5-8.0)
--- NOTE | 2024-11-26 01:18 | ED_ITS ---
HPI - Extremity Injury (Lower) General Chief Complaint: Extremity Injury, Lower Stated Complaint: left leg and back pain Time Seen by Provider: 11/26/24 01:18 Source: patient Mode of arrival: ambulatory Limitations: no limitations History of Present Illness ED Provider: HPI Narrative: Patient apparently fell 1 week ago comes here with pain and swelling of the left ankle patient was seen at [facility] x-ray was negative walking using the walker still having the pain patient does have a chronic back pain and anxiety and taking oxycodone and Klonopin Related Data Home Medications ?Medication ?Instructions ?Recorded ?Confirmed lisinopril 20 mg tablet 20 mg PO DAILY 01/30/2209/05 cyclobenzaprine 5 mg tablet 1 tab PO DAILY PRN Muscle Spasm 02/26/22 09/22/23 hydroxyzine pamoate 25 mg capsule 25 mg PO BEDTIME 09/22/23 pyridoxine (vitamin B6) 100 mg 100 mg PO DAILY 2 09/22/23 tablet (Vitamin B-6) escitalopram oxalate 5 mg tablet 5 mg PO DAILY 3 09/22/23 lorazepam 0.5 mg tablet 0.5 mg PO BID PRN 11/06/22 0 09/22/23 trazodone 50 mg tablet 50 mg PO BEDTIME PRN insomni a 11/06/22 09/22/23 clonazepam 1 mg tablet 1 mg PO TID PRN 09/01/23 escitalopram oxalate 10 mg tablet 10 mg PO DAILY 08/3109/22/23 meloxicam 7.5 mg tablet 7.5 mg PO BID 09/01/2309/21 Previous Rx's ?Medication ?Instructions ?Recorded tadalafil 5 mg tablet 5 mg PO DAILY PRN sexual act ivity 03/04/21 90 days #90 tabs metformin 500 mg tablet 500 mg PO DAILY #10 tabs 03/28 metformin 500 mg tablet,extended 500 mg PO DAILY #30 t abs 03/16/22 release 24 hr celecoxib 200 mg capsule (Celebrex) 200 mg PO BID 30 d ays #60 caps 11/09/22 prednisone 20 mg tablet 40 mg (2 x 20 mg) PO DAILY # 8 tabs 08/25/23 cephalexin 500 mg capsule 500 mg PO QID 10 days #40 ca ps 08/27/23 doxycycline hyclate 100 mg tablet 100 mg PO BID #20 ta bs 08/27/23 morphine 15 mg immediate release 15 mg PO Q8H PRN pain #15 tabs 08/27/23 tablet silver sulfadiazine 1 % topical 1 appl topical BID #85 grams 08/27/23 cream (Silvadene) docusate sodium 100 mg capsule 100 mg PO BID #14 caps 08/30/23 polyethylene glycol 3350 17 17 g PO DAILY #119 grams 0 08/30/23 gram/dose oral powder (ClearLax) sennosides 8.6 mg tablet (senna) 8.6 mg PO BID PRN con stipation #14 08/30/23 tabs methocarbamol 750 mg tablet 1,500 mg (2 x 750 mg) PO Q 8H PRN 09/19/24 pain, moderate #20 tabs methylprednisolone 4 mg tablets in 4 mg PO QAM #21 ea 09/19/24 a dose pack (Medrol (Elia)) oxycodone 5 mg tablet 5 mg PO Q6H PRN pain #20 tab s 11/26/24 Allergies Allergy/AdvReac Type Severity Reaction Status Date / Time No Known Allergies (No Known Allergy Verified 11/26/24 00:40 Allergies*) Review of Systems 2 Review of Systems: Yes all other systems are reviewed and are negative [facility] Past Medical History Medical History Anxiety Back pain Elevated cholesterol HTN (hypertension) Diabetes Surgical History H/O colonoscopy Hx of cystoscopy Hx of anterior cruciate ligament surgery Social History Social History Alcohol intake: never Patient Tobacco Use Status: Never used Tobacco Advance Directives: No Physical Exam 2 Vital Signs: Vital Signs: Last Vital Signs Temp 98.1 F 11/26/24 02:28 Pulse 90 11/26/24 02:28 Resp 16 11/26/24 02:28 BP 116/70 11/26/24 02:28 Pulse Ox 98 11/26/24 02:28 O2 Del Method Room Air 11/26/24 02:28 BMI result Body Mass Index 28.1 Appearance: Alert. Oriented X3. No acute distress. Eyes: no pallor or icterus ENT: Pharynx normal Oral Mucosa moist tympanic membrane intact no erythema, Neck: Normal inspection. Neck supple. CVS: Normal heart rate and rhythm. Pulses normal. Respiratory: No respiratory distress. Equal air entry bilateral, no wheezing/rales/rhonchi Abd: soft, not tender Skin: Skin warm and dry. Normal skin color. Normal skin turgor. Extremities: Left ankle swollen with diffuse tenderness no deformity neurovascular intact Neuro: Oriented X 3. Medical Decision Making Medical Decision Making [facility] Narrative: Patient with left ankle sprain after minor fall will give ortho boot advised to take his pain medication Tylenol/ibuprofen and continues oxycodone follow with Orthopedics Lab Data [facility] Lab Attestation statement: I reviewed the patient's lab results. 11/26/24 00:58 11/26/24 00:58 Labs: Lab Results 11/26/24 Range/Units 00:58 WBC 4.6 L (4.8-10.8) X10*3/uL RBC 4.80 (4.60-5.80) X10*6/uL Hgb 14.6 (14.0-18.0) g/dl Hct 41.4 L (42.0-52.0) % MCV 86.3 (80.0-98.0) fL MCH 30.4 (27.0-33.0) pg MCHC 35.3 (31.0-36.0) g/dl RDW 13.2 (11.0-16.0) % Plt Count 180 (160-400) X10*3/uL MPV 10.0 (9.4-12.4) fL Immature Gran % (Auto) 0.2 (0.0-0.4) % Neut % (Auto) 61.7 (45-73) % Lymph % (Auto) 23.5 (20-40) % Clare % (Auto) 9.7 (2-11) % Eos % (Auto) 4.2 H (0-4) % Baso % (Auto) 0.7 (0-2) % Lymph # (Auto) 1.1 L (1.2-4.9) X10*3/uL Clare # (Auto) 0.4 (0.1-1.2) X10*3/uL Eos # (Auto) 0.2 (0.0-0.4) X10*3/uL Baso # (Auto) 0.0 (0.0-0.2) X10*3/uL Abs Immat Gran (auto) 0.01 (0.00-0.03) X10*3/uL Absolute Neuts (auto) 2.8 (2.0-8.3) x10*3/uL Absolute Nucleated RBC 0.000 (0.0-0.012) X10*3/uL Nucleated RBC % (auto) 0.0 (0.0-0.2) /100WBC Sodium 141 (135-145) mmol/L Potassium 3.4 D (3.3-5.1) mmol/L Chloride 105 (96-108) mmol/L Carbon Dioxide 26 (22-29) mmol/L Anion Gap 13 (12-20) BUN 15 (9-16) mg/dL Creatinine 0.74 (0.5-1.4) mg/dL Estim Creat Clear Calc 128.8 Estimated GFR > 60 Random Glucose 192 H (60-115) mg/dL Calcium 9.3 D (8.4-10.2) mg/dL Total Bilirubin 1.1 H (0.0-1.0) mg/dL AST 242 H (5-37) U/L ALT 264 H (0-40) U/L Alkaline Phosphatase 49 (39-117) U/L Total Protein 6.2 L (6.5-8.0) g/dL Albumin 3.7 (3.5-5.0) g/dL Independent Interpretation I performed an independent interpretation of an: Plain X-Ray Interpretation: No acute fracture Discharge Plan Discharge Clinical Impression: Sprain of ankle, left Qualifiers: Encounter type: initial encounter Involved ligament of ankle: tibiofibular ligament Qualified Code(s): S93.432A - Sprain of tibiofibular ligament of left ankle, initial encounter Patient Disposition: Home, Self-Care Instructions: Ankle Sprain (DC) Additional Instructions: Wear the boot for support as given to you Ibuprofen for pain Use walker/crutches Pain medication as prescribed Prescriptions: New oxycodone 5 mg tablet 5 mg PO Q6H PRN (Reason: pain) Qty: 20 0RF Rx Instructions: Partial Fill upon patient request. Discontinued oxycodone 5 mg tablet 5 mg PO Q6H PRN (Reason: severe pain (scale score 7-10)) Qty: 12 0RF Rx Instructions: Partial Fill upon patient request. No Action celecoxib [Celebrex] 200 mg capsule 200 mg PO BID 30 Days Qty: 60 3RF lisinopril 20 mg tablet 20 mg PO DAILY pyridoxine (vitamin B6) [Vitamin B-6] 100 mg Tablet 100 mg PO DAILY hydroxyzine pamoate 25 mg Capsule 25 mg PO BEDTIME cyclobenzaprine 5 mg tablet 1 tab PO DAILY PRN (Reason: Muscle Spasm) metformin 500 mg tablet 500 mg PO DAILY Qty: 10 0RF metformin 500 mg tablet extended release 24 hr 500 mg PO DAILY Qty: 30 1RF methylprednisolone [Medrol (Elia)] 4 mg tablets,dose pack 4 mg PO QAM Qty: 21 0RF Rx Instructions: Take per package instructions methocarbamol 750 mg tablet 1,500 mg PO Q8H PRN (Reason: pain, moderate) Qty: 20 0RF prednisone 20 mg tablet 40 mg PO DAILY Qty: 8 0RF cephalexin 500 mg capsule 500 mg PO QID 10 Days Qty: 40 0RF morphine 15 mg tablet 15 mg PO Q8H PRN (Reason: pain) Qty: 15 0RF Rx Instructions: Partial Fill upon patient request. doxycycline hyclate 100 mg tablet 100 mg PO BID Qty: 20 0RF silver sulfadiazine [Silvadene] 1 % cream 1 appl topical BID Qty: 85 0RF Rx Instructions: apply a 1.5 mm thickness polyethylene glycol 3350 [ClearLax] 17 gram/dose powder 17 g PO DAILY Qty: 119 0RF sennosides [senna] 8.6 mg tablet 8.6 mg PO BID PRN (Reason: constipation) Qty: 14 0RF docusate sodium 100 mg capsule 100 mg PO BID Qty: 14 0RF tadalafil 5 mg tablet 5 mg PO DAILY PRN (Reason: sexual activity) 90 Days Qty: 90 1RF escitalopram oxalate 10 mg tablet 10 mg PO DAILY clonazepam 1 mg tablet 1 mg PO TID PRN meloxicam 7.5 mg tablet 7.5 mg PO BID escitalopram oxalate 5 mg tablet 5 mg PO DAILY lorazepam 0.5 mg tablet 0.5 mg PO BID PRN trazodone 50 mg tablet 50 mg PO BEDTIME PRN (Reason: insomnia) Interventions: ED Discharge Assessment Last Done: 11/26/24 02:28 Discharge Date/Time: 11/26/24 02:30 Print Language: Romansh
--- OUTSIDE RECORDS SUMMARY | 2024-11-26 01:21 | XMS_ITS | Encounter Summary ---
Author Organization [employer] Address [address] [facility] [address] [place] [address] Care Team Providers Care Speech Clinician Name Role Phone Jojo Jaramillo MD Primary Care Provider [phone] Reason for Visit * Reason Comments Med Refill Encounter Details Date Type Department Care Team (Late st Contact Info) Description 06/24/2023 Refill [facility] MEDICINE [address] [place], [place] [id number] Name, MD Gabe [address] [place], [place] [id number] Social History Tobacco Use Types Packs/Day Years Used Date Smoking Tobacco: Former Cigarettes Depression Answer Date Recorded Patient Health Questionnaire-9 Score 5 08/26/2022 Housing Stability Answer Date Recorded What is your housing situation today? I have joseeflakito urena 03/26/[address] you [...] Care Team (Late st Contact Info) Description 03/07/2025 9:30 AM EDT Clinical Support [facility] MED & PEDS [address] [place] [address] Santa Wade, DAGOBERTO [address] [place] [address] 05/07/2025 9:00 AM EST Office Visit [facility] OPTOMETRY [address] [place] [address] Jennifer Kelly, OD [address] [place] [address] documented as of this encounter Visit Diagnoses Not on filedocumented in this encounter Additional Health Concerns Assessment Noted Time PHQ-9 Depression Total Score: 5 08/27/19 23 9:15 AM EDT documented as of this encounter Care Teams Speech Clinician Relationship Specialty Start Date End Date Jojo Jaramillo MD [address] [place] [address] PCP - General Family Medicine 12/19/18 documented as of this encounter
[2024-11-26 02:27] VITALS: BP 116/70; PULSE 90; RESP 16; TEMP 36.7; O2SAT 98
[2024-11-26 02:28] VITALS: BP 116/70; PULSE 90; RESP 16; TEMP 36.7; O2SAT 98
== END 2024-11-26 02:30 | disposition home or self-care (01) ==
PROVIDERS: Emergency Provider Internal Medicine; PCP Family Medicine
DX: S93.432A Sprain of tibiofibular ligament of left ankle, initial encounter (principal); M25.572 Pain in left ankle and joints of left foot; M54.50 Low back pain, unspecified; F41.9 Anxiety disorder, unspecified; X58.XXXA Exposure to other specified factors, initial encounter; Y93.9 Activity, unspecified; Y92.9 Unspecified place or not applicable; Y99.8 Other external cause status
CPT/HCPCS: 36415; 73610; 80053; 85025; 99284

== ENCOUNTER → 2024-11-26 01:21 | Outpatient (BNV) | payer OTHER, SELFPAY | PROVIDERS: Emergency Provider Internal Medicine; PCP Family Medicine; Visit Provider Radiology Diagnostic Radiology | DX: S93.402A Sprain of unspecified ligament of left ankle, initial encounter (principal); W19.XXXA Unspecified fall, initial encounter | CPT/HCPCS: 73610 ==

== ENCOUNTER 2024-11-30 08:34 | Outpatient (REF) | payer OTHER, MEDICAID, SELFPAY ==
[2024-11-30 11:50] LABS: Alanine Aminotransferase 134 U/L (0-40); Albumin Level 4.2 g/dL (3.5-5.0); Alkaline Phosphatase 51 U/L (39-117); Anion Gap 13 (12-20); Aspartate Amino Transferase 53 U/L (5-37); Bilirubin Direct 0.3 mg/dL (0.0-0.5); Bilirubin Total 0.6 mg/dL (0.0-1.0); Blood Urea Nitrogen 17 mg/dL (9-16); C Reactive Protein 0.74 mg/dL (< or = 0.50); Calcium 9.3 mg/dL (8.4-10.2); Carbon Dioxide 24 mmol/L (22-29); Chloride 107 mmol/L (96-108); Cholesterol 183 mg/dL (<200); Estimated Glomerular Filt Rate > 60; Glucose Random 121 mg/dL (60-115); HDL Cholesterol 38 mg/dL (>40); LDL Cholesterol Calculated 119 mg/dL (<100); Potassium 3.6 mmol/L (3.3-5.1); Sodium 140 mmol/L (135-145); Total Protein 6.5 g/dL (6.5-8.0); Triglycerides 134 mg/dL (<150)
[2024-11-30 12:05] LABS: Rheumatoid Factor < 13.0 IU/mL (<15.0)
[2024-11-30 12:16] LABS: Erythrocyte Sedimentation Rate 7 MM/HR (0-15)
[2024-11-30 12:17] LABS: Reflex LDLD? No
[2024-12-04 10:50] LABS: Anti Nuclear Antibody Screen NEGATIVE (NEGATIVE)
[2024-12-05 19:24] LABS: Cyclic Citrullinated Peptide <16 UNITS
== END 2024-11-30 08:35 | disposition home or self-care (01) ==
LOC: HO.HHCL 08:34
PROVIDERS: PCP Family Medicine; Visit Provider Family Medicine
DX: M25.561 Pain in right knee (principal); M25.562 Pain in left knee; M79.10 Myalgia, unspecified site; M54.50 Low back pain, unspecified; G89.29 Other chronic pain; E11.9 Type 2 diabetes mellitus without complications
CPT/HCPCS: 36415; 80053; 80061; 82248; 85652; 86038; 86140; 86200; 86431

== ENCOUNTER 2024-12-21 15:33 | Emergency (ER) | payer OTHER, SELFPAY ==
--- NOTE | ~2024-12-21 | XR_ITS ---
CLINICAL HISTORY: Open wound with swelling 4 view left foot Comparison: None provided Findings: No fractures or dislocations. No significant loss of joint space, osteophytes, or erosions. No ankle effusion. Soft tissue swelling of the dorsum of the foot. No radiopaque foreign body. IMPRESSION: 1. No acute osseous findings. 2. Soft tissue swelling. This document has been electronically signed by: Emily Guzman MD on 12/21/2024 21:09:54
--- NOTE | ~2024-12-21 | XR_ITS ---
EXAMINATION: XR HIP, LEFT CLINICAL INFORMATION: two falls today, hip pain COMPARISON: None available. TECHNIQUE: AP pelvis, and 2 views of the left hip. FINDINGS: No fracture, dislocation, or suspicious bone lesion. Hip joints are intact. There is normal alignment. Normal femoral head contours without evidence of AVN. The pelvis is intact. The sacrum is intact. There are mild degenerative changes in both SI joints. There is no soft tissue abnormality. XR/XR hip LT w [id number] IMPRESSION: No acute bony abnormality of the pelvis or hip joints. Electronically signed by: Kumar Sandoval MD 12/21/2024 04:39 PM EDT
[2024-12-21 15:57] VITALS: BP 141/84; PULSE 100; RESP 16; TEMP 37.1; O2SAT 97; BMI 28.2
--- NOTE | 2024-12-21 15:59 | ED.GENADULT ---
HPI - General Adult General Chief complaint: Extremity Problem Stated complaint: left leg injury (fall) Time Seen by Provider: 12/21/24 19:52 Source: patient Mode of arrival: EMS Limitations: no limitations History of Present Illness ED Provider: HPI narrative: Patient with chronic lower extremity pain from neuropathy on oxycodone 10 mg every 6 hours, Celebrex and meloxicam apparently fell 2 days ago since then been having increasing pain with superficial abrasion in surrounding redness of the left lundberg area Related Data Home Medications ?Medication ?Instructions ?Recorded ?Confirmed lisinopril 20 mg tablet 20 mg PO DAILY 01/30/22 09/22/23 cyclobenzaprine 5 mg tablet 1 tab PO DAILY PRN Muscle Spasm 02/26/22 09/22/23 hydroxyzine pamoate 25 mg capsule 25 mg PO BEDTIME 02/26/22 09/22/23 pyridoxine (vitamin B6) 100 mg 100 mg PO DAILY 02/26/22 09/22/23 tablet (Vitamin B-6) escitalopram oxalate 5 mg tablet 5 mg PO DAILY 11/06/22 09/22/23 lorazepam 0.5 mg tablet 0.5 mg PO BID PRN 11/06/22 09/22/23 trazodone 50 mg tablet 50 mg PO BEDTIME PRN insomnia 11/06/22 09/22/23 clonazepam 1 mg tablet 1 mg PO TID PRN 09/01/23 09/22/23 escitalopram oxalate 10 mg tablet 10 mg PO DAILY 09/01/23 09/22/23 meloxicam 7.5 mg tablet 7.5 mg PO BID 09/01/23 09/22/23 Previous Rx's ?Medication ?Instructions ?Recorded tadalafil 5 mg tablet 5 mg PO DAILY PRN sexual activity 03/04/21 90 days #90 tabs metformin 500 mg tablet 500 mg PO DAILY #10 tabs 03/16/22 metformin 500 mg tablet,extended 500 mg PO DAILY #30 tabs 03/16/22 release 24 hr celecoxib 200 mg capsule (Celebrex) 200 mg PO BID 30 days #60 caps 11/09/22 prednisone 20 mg tablet 40 mg (2 x 20 mg) PO DAILY #8 tabs 08/25/23 cephalexin 500 mg capsule 500 mg PO QID 10 days #40 caps 08/27/23 doxycycline hyclate 100 mg tablet 100 mg PO BID #20 tabs 08/27/23 morphine 15 mg immediate release 15 mg PO Q8H PRN pain #15 tabs 08/27/23 tablet silver sulfadiazine 1 % topical 1 appl topical BID #85 grams 08/27/23 cream (Silvadene) docusate sodium 100 mg capsule 100 mg PO BID #14 caps 08/30/23 polyethylene glycol 3350 17 17 g PO DAILY #119 grams 08/30/23 gram/dose oral powder (ClearLax) sennosides 8.6 mg tablet (senna) 8.6 mg PO BID PRN constipation #14 08/30/23 tabs methocarbamol 750 mg tablet 1,500 mg (2 x 750 mg) PO Q8H PRN 09/19/24 pain, moderate #20 tabs methylprednisolone 4 mg tablets in 4 mg PO QAM #21 ea 09/19/24 a dose pack (Medrol (Elia)) oxycodone 5 mg tablet 5 mg PO Q6H PRN pain #20 tabs 11/26/24 doxycycline hyclate 100 mg tablet 100 mg PO BID #20 tabs 12/21/24 Allergies Allergy/AdvReac Type Severity Reaction Status Date / Time No Known Allergies (No Known Allergy Verified 12/21/24 15:59 Allergies*) Review of Systems Review of Systems: Yes all other systems are reviewed and are negative [facility] Past Medical History Medical History Anxiety Back pain Elevated cholesterol HTN (hypertension) Diabetes Surgical History H/O colonoscopy Hx of cystoscopy Hx of anterior cruciate ligament surgery Social History Social History Alcohol intake: never Patient Tobacco Use Status: Never used Tobacco Physical Exam ED Vital Signs: Vital Signs - 24 hr 12/21/24 15:57 12/21/24 19:25 Temperature 98.8 F 97.7 F Pulse Rate 100 87 Respiratory Rate 16 18 Blood Pressure 141/84 H 141/81 H Pulse Oximetry 97 99 Oxygen Delivery Method Room Air Room Air BMI result Body Mass Index 28.2 Appearance: Alert. Oriented X3. No acute distress. Eyes: no pallor or icterus ENT: Pharynx normal Oral Mucosa moist tympanic membrane intact no erythema, Neck: Normal inspection. Neck supple. CVS: Normal heart rate and rhythm. Pulses normal. Respiratory: No respiratory distress. Equal air entry bilateral, no wheezing/rales/rhonchi Abd: soft, not tender Skin: Skin warm and dry. Normal skin color. Normal skin turgor. Extremities: Left leg with superficial abrasion surrounding erythema Neuro: Oriented X 3. Course Course Course Narrative: This is a rapid medical exam performed by Matthew Mccabe NP: Additional HPI, ROS, PE not included below will be deferred to primary provider. Patient is a 49-year-old male presenting from [facility] clinic for evaluation of left hip pain after two falls today. Plan; imaging Medications Administered Discontinued Medications Generic Name Dose Route Start Last Admin Trade Name Freq PRN Reason Stop Dose Admin Cephalexin HCl 500 mg 12/21/24 20:26 12/21/24 20:37 Cephalexin 500 Mg Capsule PO 12/21/24 20:27 500 mg ONCE ONE Administration Doxycycline Monohydrate 100 mg 12/21/24 20:26 12/21/24 20:37 Doxycycline Monohydrate 100 Mg Capsule PO 12/21/24 20:27 100 mg ONCE ONE Administration Oxycodone HCl 10 mg 12/21/24 20:26 12/21/24 20:37 Oxycodone Hcl Immed Release 5 Mg Tablet PO 12/21/24 20:27 10 mg ONCE ONE Administration Medical Decision Making Medical Decision Making [facility] Narrative: Patient after minor fall complaining of pain in the left leg area with superficial abrasion cellulitis will prescribe doxycycline cephalexin Discharge Plan Discharge Clinical Impression: Cellulitis, Chronic leg pain Patient Disposition: Home, Self-Care Instructions: Cellulitis (ED), Pain Management (ED) Additional Instructions: Continue take your pain medication as prescribed by your PCP Antibiotics as advised Follow up with your PCP Prescriptions: New doxycycline hyclate 100 mg tablet 100 mg PO BID Qty: 20 0RF No Action celecoxib [Celebrex] 200 mg capsule 200 mg PO BID 30 Days Qty: 60 3RF lisinopril 20 mg tablet 20 mg PO DAILY pyridoxine (vitamin B6) [Vitamin B-6] 100 mg Tablet 100 mg PO DAILY hydroxyzine pamoate 25 mg Capsule 25 mg PO BEDTIME cyclobenzaprine 5 mg tablet 1 tab PO DAILY PRN (Reason: Muscle Spasm) metformin 500 mg tablet 500 mg PO DAILY Qty: 10 0RF metformin 500 mg tablet extended release 24 hr 500 mg PO DAILY Qty: 30 1RF methylprednisolone [Medrol (Elia)] 4 mg tablets,dose pack 4 mg PO QAM Qty: 21 0RF Rx Instructions: Take per package instructions methocarbamol 750 mg tablet 1,500 mg PO Q8H PRN (Reason: pain, moderate) Qty: 20 0RF prednisone 20 mg tablet 40 mg PO DAILY Qty: 8 0RF cephalexin 500 mg capsule 500 mg PO QID 10 Days Qty: 40 0RF morphine 15 mg tablet 15 mg PO Q8H PRN (Reason: pain) Qty: 15 0RF Rx Instructions: Partial Fill upon patient request. doxycycline hyclate 100 mg tablet 100 mg PO BID Qty: 20 0RF silver sulfadiazine [Silvadene] 1 % cream 1 appl topical BID Qty: 85 0RF Rx Instructions: apply a 1.5 mm thickness polyethylene glycol 3350 [ClearLax] 17 gram/dose powder 17 g PO DAILY Qty: 119 0RF sennosides [senna] 8.6 mg tablet 8.6 mg PO BID PRN (Reason: constipation) Qty: 14 0RF docusate sodium 100 mg capsule 100 mg PO BID Qty: 14 0RF oxycodone 5 mg tablet 5 mg PO Q6H PRN (Reason: pain) Qty: 20 0RF Rx Instructions: Partial Fill upon patient request. tadalafil 5 mg tablet 5 mg PO DAILY PRN (Reason: sexual activity) 90 Days Qty: 90 1RF escitalopram oxalate 10 mg tablet 10 mg PO DAILY clonazepam 1 mg tablet 1 mg PO TID PRN meloxicam 7.5 mg tablet 7.5 mg PO BID escitalopram oxalate 5 mg tablet 5 mg PO DAILY lorazepam 0.5 mg tablet 0.5 mg PO BID PRN trazodone 50 mg tablet 50 mg PO BEDTIME PRN (Reason: insomnia) Interventions: ED Discharge Assessment Last Done: 12/21/24 22:08 Discharge Date/Time: 12/21/24 22:09 Print Language: Canadian
--- NOTE | 2024-12-21 16:15 | PC.NURSE ---
Patient unable to walk into triage without assistance, wheeled into traige in WC by this press writer, patient getting cane stuck in door jam. Cane removed from door jam. During triage patient verbally aggressive with staff, accusing this press writer of being rude . Unable to provide details as to why he is here in the ED beyond his leg pain, resistant to getting new xrays. Vanita LOGAN & Linus nut chopper present for interaction.
--- NOTE | 2024-12-21 16:43 | PC.NURSE ---
Patient approaching triage door knocking with cane. Triage door opened, patient wheeled himself into triage asking this RN why he only had hip xray taken and not further xrays, because I told you had foot pain too . Pit provider Jie attempted to explain to patient that a provider needs to see him and do a further evaluation before additional tests are ordered. Patient stated I'm not talking to you to jie. This underwriter solicitation director attempted to explain to patient that a provider needs to make a more comprehensive evaluation of his foot and leg in a room so that the appropriate images are ordered, patient might need imaging beyond an xray. Patient rolled eyes at this underwriter solicitation director, wheeled himself away. Provider Jie speaking to this underwriter solicitation director about another patient while triage door was closing, patient turned around and yelled If you have something to say, say it to my face . GLENN Arellano made aware.
--- OUTSIDE RECORDS SUMMARY | 2024-12-21 18:42 | XMS_ITS | Encounter Summary ---
Author Organization [employer] Address [address] [facility] [address] [place] [address] Care Team Providers Care Cover Assembler Name Role Phone Jojo Jaramillo MD Primary Care Provider [phone] Reason for Visit * Reason Comments Med Refill Encounter Details Date Type Department Care Team (Late st Contact Info) Description 06/24/2023 Refill [facility] MEDICINE [address] [place], [place] [phone] Name, MD Gabe [address] [place], [place] [phone] Social History Tobacco Use Types Packs/Day Years [...] Description 03/07/2025 9:30 AM EDT Clinical Support [facility] MED & PEDS [address] [place] [address] Santa Wade, DAGOBERTO [address] [place] [address] 05/07/2025 9:00 AM EST Office Visit [facility] OPTOMETRY [address] [place] [address] Jennifer Kelly, OD [address] [place] [address] documented as of this encounter Visit Diagnoses Not on filedocumented in this encounter Additional Health Concerns Assessment Noted Time PHQ-9 Depression Total Score: 5 08/27/19 23 9:15 AM EDT documented as of this encounter Care Teams Cover Assembler Relationship Specialty Start Date End Date Jojo Jaramillo MD [address] [place] [address] PCP - General Family Medicine 12/19/18 documented as of this encounter
--- OUTSIDE RECORDS SUMMARY | 2024-12-21 18:42 | XMS_ITS | Clinical Summary ---
Author Organization [facility] Address [address] [place] [address] Phone Care Team Providers Care Patient Financial Advocate Name Role Phone Jojo Jaramillo MD Primary Care Provider [phone] Encounters Date Type Department Care Team Description 12/19/2024 3:30 PM EDT - 12/19/2024 11:59 PM EDT Hospital Encounter [facility] Ultrasound [address] [place] [address] Pain; Swelling Discharge Disposition: Home or Self Care from Last 3 Months Social History Tobacco Use Types Packs/Day Years Used Date Smoking Tobacco: Never Assessed Sex and Gender Information Value Date Recorded Sex Assigned at Not on file Legal Sex Male 1:47 PM EDT Gender Identity Not on file Sexual Orientation Not on file Plan of Treatment Health Maintenance Due Date Last Done Comments Diabetes: Annual Foot Exam 12/10/1985 Diabetes: Annual Retina Eye Exam 12/10/1985 COVID-19 Vaccine ( season) 2024 Depression Screening 06/07/2024 Cholesterol Screening (Lipid Panel) 12/20/2024 Colorectal Cancer Screening: Colonoscopy 12/20/2024 Diabetes: Annual Urine Albumin-Creatinine Ratio (uACR) 12/20/2024 Social Influencers of Health Screening 12/20/2024 Influenza Vaccine (#1) 2025 , 03/13/2020, 02/15/2019, Additional history exists Diabetes: Blood Sugar Control Test (HGBA1C) 06/09/2025 12/07/2024 Diabetes: Annual GFR (Glomerular Filtration Rate) 11/30/2025 11/30/2024, 11/26/2024 Hypertension/CHF/CAD Annual BMP Blood Test 11/30/2025 11/30/2024, 11/26/2024 DTaP,Tdap,and Td Vaccines (4 - Td or Tdap) 09/29/2027 09/28/2017, 10/21/2012, 09/21/2006 Hepatitis A Vaccines Aged Out 03/31/2007, 09/22/19 07 No longer eligible based on patient's age to complete this topic Pneumococcal Vaccine: Pediatrics (0 to 5 Years) and At-Risk Patients (6 to 49 Years) Aged Out 10/21/2012 No longer eligible based on patient's age to complete this topic Hepatitis B Vaccines Completed 10/08/2017, 03/18/2007, 11/08/2006, Additional history exists Varicella Vaccines Aged Out 11/08/2017, 10/08/2017 No longer eligible based on patient's age to complete this topic HIV Screening Completed 08/26/2023 Hepatitis C Screening Completed 08/26/2023 HIB Vaccines Aged Out No longer eligi ble based on patient's age to complete this topic HPV Vaccines Aged Out No longer eligi ble based on patient's age to complete this topic IPV Vaccines Aged Out No longer eligi ble based on patient's age to complete this topic MMR Vaccines Aged Out No longer eligi ble based on patient's age to complete this topic Meningococcal ACWY Vaccine Aged Out N o longer eligible based on patient's age to complete this topic Meningococcal B Vaccine Aged Out No l onger eligible based on patient's age to complete this topic RSV Immunization Patients Under 20 months Aged Out No longer eligible based on patient's age to complete this topic Procedures Procedure Name Priority Date/Time Associated Diagnosis Comments VAS US DUPLEX LOWER EXT VENOUS LEFT Routine 12/19/2024 3:59 PM EDT Pain Swelling from Last 3 Months Results * Vascular US duplex lower extremity venous left (12/19/2024 3:59 PM EDT) Anatomical Region Laterality Modality Vascular, Abdomen Ultrasound 12/20/2024 9:02 AM EDT Impressions 12/20/2024 9:03 AM EDT Normal examination of the venous system of the left lower extremity. Code 69198 -------- FINAL REPORT -------- Dictated By: Hieu Hurd Dictated Date: 12/20/2024 09:02 ET Assigned Physician: Hieu Hurd Reviewed and Electronically Signed By: Hieu Hurd Signed Date: 12/20/2024 09:03 ET Workstation ID: [id number] Transcribed By: Self Edit Transcribed Date: 12/20/2024 09:02 ET Narrative 12/20/2024 9:03 AM EDT HISTORY: The patient is a 49-year-old male with left lower extremity pain and swelling. FINDINGS: Real-time ultrasonography of the venous system of the left lower extremity is performed. The common femoral, femoral, and popliteal veins are widely patent, without evidence of thrombus. There is normal compressibility and augmentation. The visualized calf veins are patent. Procedure Note Hieu Hurd MD - 12/20/2024 HISTORY: The patient is a 49-year-old male with left lower extremity painand swelling. FINDINGS: Real-time ultrasonography of the venous system of the left lowerextremity is performed. The common femoral, femoral, and popliteal veinsare widely patent, without evidence of thrombus. There is normalcompressibility and augmentation. The visualized calf veins are patent. IMPRESSION: Normal examination of the venous system of the left lower extremity. Code 56575 -------- FINAL REPORT -------- Dictated By: Hieu Hurd Dictated Date: 12/20/2024 09:02 ET Assigned Physician: Hieu Hurd Reviewed and Electronically Signed By: Hieu Hurd Signed Date: 12/20/2024 09:03 ET Workstation ID: [id number] Transcribed By: Self Edit Transcribed Date: 12/20/2024 09:02 ET us Jojo Jaramillo MD CV VASCULAR PROCEDURES Final Res ult from Last 3 Months Insurance [facility] [address] [address] MEDICAID - [place] Care Teams Patient Financial Advocate Relationship Specialty Start Date End Date Jojo Jaramillo MD [address] [place] [address] PCP - General Family Medicine 12/19/24
[2024-12-21 19:25] VITALS: BP 141/81; PULSE 87; RESP 18; TEMP 36.5; O2SAT 99
[2024-12-21] MEDS: oxyCODONE HCl Immed Release 5 MG TABLET 10 MG PO (20:37)
--- NOTE | 2024-12-21 22:04 | PC.NURSE ---
Pt left without discharge paperwork, became upset when explained he will be unable to prescribe pain med since pt goes to pain clinic. Pt ambulated out of ED w/ cane
[2024-12-21 22:08] VITALS: BP 141/81; PULSE 87; RESP 18; TEMP 36.5; O2SAT 99
== END 2024-12-21 22:09 | disposition home or self-care (01) ==
PROVIDERS: Emergency Provider Internal Medicine
DX: S80.812A Abrasion, left lower leg, initial encounter (principal); L03.116 Cellulitis of left lower limb; X58.XXXA Exposure to other specified factors, initial encounter; Y93.9 Activity, unspecified; Y92.9 Unspecified place or not applicable; Y99.8 Other external cause status; Z79.899 Other long term (current) drug therapy
CPT/HCPCS: 73502; 73630; 99283; 99284

== ENCOUNTER → 2024-12-21 16:00 | Outpatient (BNV) | payer OTHER, SELFPAY | PROVIDERS: Visit Provider Radiology Diagnostic Radiology | DX: M25.552 Pain in left hip (principal); W19.XXXA Unspecified fall, initial encounter; R22.42 Localized swelling, mass and lump, left lower limb | CPT/HCPCS: 73502; 73630 ==

== ENCOUNTER 2025-01-24 11:58 | Emergency (ER) | payer MEDICAID, SELFPAY ==
--- NOTE | ~2025-01-24 | US_ITS ---
EXAMINATION: US NONINVASIVE ASSESSMENT OF THE LEFT LOWER EXTREMITY ARTERIES CLINICAL INFORMATION: Severe left lower extremity pain. Per technologist note patient dropped heavy item on foot, pain localized to foot and ankle. COMPARISON: None available. TECHNIQUE: Duplex Doppler techniques with waveform analysis and measurement of velocities in the left common femoral, profunda femoris, superficial femoral, popliteal and tibial arteries were performed. FINDINGS: LEFT FEMORAL RUNOFF VELOCITIES: The left common femoral artery measures 79 cm/s and triphasic. The left profunda femoral artery is 55 cm/s and is triphasic. The left proximal superficial femoral artery measures 86 cm/s and triphasic. The left mid superficial femoral artery is 67 cm/s and triphasic. The left distal right superficial femoral artery measures 47 cm/s and is triphasic. The left popliteal velocity measures 52 cm/s and is triphasic. The left posterior tibial artery velocity measures 52 cm/s and is triphasic. US/US arterial duplex LE IMPRESSION: 1. No sonographic evidence of significant peripheral vascular disease of the left lower extremity. Electronically signed by: Kumar Sandoval MD 01/24/2025 02:26 PM EDT
--- NOTE | ~2025-01-24 | XR_ITS ---
EXAMINATION: XR FOOT, LEFT CLINICAL INFORMATION: pain COMPARISON: December 21, 2024 TECHNIQUE: AP, lateral, and oblique views of the left foot. FINDINGS: Mild hallux valgus deformity is present across the IP and MTP joints. Small marginal ossified is present along the medial first metatarsophalangeal joint. There is mild bony prominence involving the lateral head of the middle phalanx of the fourth digit. XR/XR foot LT min 3V IMPRESSION: Mild hallux valgus deformity. Mild first MTP joint osteoarthritis. No definite acute abnormality. Electronically signed by: Joesph Lehman MD 01/24/2025 02:54 PM EDT
[2025-01-24 12:49] VITALS: BP 140/90; BP 144/86; PULSE 114; PULSE 130; RESP 20; TEMP 36.7; O2SAT 97; O2SAT 99; BMI 23.6
--- NOTE | 2025-01-24 12:58 | ED.GENADULT ---
HPI - General Adult General Chief complaint: General Medical Stated complaint: LLE PAIN X1M Time Seen by Provider: 01/24/25 16:58 Source: patient, RN notes reviewed and old records reviewed Mode of arrival: EMS Limitations: no limitations History of Present Illness ED Provider: Sole CHEUNG narrative: 49-year-old male presents for evaluation of left foot pain. The patient has had pain to the left foot for about 1 month after a fall. He denies any more recent falls. He was seen and had a negative x-ray He reports that he was due to have an appointment for an MRI of his foot but missed that appointment. He reports 10/10 pain to his entire left foot. He has no calf pain or swelling No other complaints or concerns at this time Related Data Home Medications ?Medication ?Instructions ?Recorded ?Confirmed lisinopril 20 mg tablet 20 mg PO DAILY 01/30/22 09/22/23 cyclobenzaprine 5 mg tablet 1 tab PO DAILY PRN Muscle Spasm 02/26/22 09/22/23 hydroxyzine pamoate 25 mg capsule 25 mg PO BEDTIME 02/26/22 09/22/23 pyridoxine (vitamin B6) 100 mg 100 mg PO DAILY 02/26/22 09/22/23 tablet (Vitamin B-6) escitalopram oxalate 5 mg tablet 5 mg PO DAILY 11/06/22 09/22/23 lorazepam 0.5 mg tablet 0.5 mg PO BID PRN 11/06/22 09/22/23 trazodone 50 mg tablet 50 mg PO BEDTIME PRN insomnia 11/06/22 09/22/23 clonazepam 1 mg tablet 1 mg PO TID PRN 09/01/23 09/22/23 escitalopram oxalate 10 mg tablet 10 mg PO DAILY 09/01/23 09/22/23 meloxicam 7.5 mg tablet 7.5 mg PO BID 09/01/23 09/22/23 Previous Rx's ?Medication ?Instructions ?Recorded tadalafil 5 mg tablet 5 mg PO DAILY PRN sexual activity 03/04/21 90 days #90 tabs metformin 500 mg tablet 500 mg PO DAILY #10 tabs 03/16/22 metformin 500 mg tablet,extended 500 mg PO DAILY #30 tabs 03/16/22 release 24 hr celecoxib 200 mg capsule (Celebrex) 200 mg PO BID 30 days #60 caps 11/09/22 prednisone 20 mg tablet 40 mg (2 x 20 mg) PO DAILY #8 tabs 08/25/23 cephalexin 500 mg capsule 500 mg PO QID 10 days #40 caps 08/27/23 doxycycline hyclate 100 mg tablet 100 mg PO BID #20 tabs 08/27/23 morphine 15 mg immediate release 15 mg PO Q8H PRN pain #15 tabs 08/27/23 tablet silver sulfadiazine 1 % topical 1 appl topical BID #85 grams 08/27/23 cream (Silvadene) docusate sodium 100 mg capsule 100 mg PO BID #14 caps 08/30/23 polyethylene glycol 3350 17 17 g PO DAILY #119 grams 08/30/23 gram/dose oral powder (ClearLax) sennosides 8.6 mg tablet (senna) 8.6 mg PO BID PRN constipation #14 08/30/23 tabs methocarbamol 750 mg tablet 1,500 mg (2 x 750 mg) PO Q8H PRN 09/19/24 pain, moderate #20 tabs methylprednisolone 4 mg tablets in 4 mg PO QAM #21 ea 09/19/24 a dose pack (Medrol (Elia)) oxycodone 5 mg tablet 5 mg PO Q6H PRN pain #20 tabs 11/26/24 doxycycline hyclate 100 mg tablet 100 mg PO BID #20 tabs 12/21/24 diclofenac sodium 1 % topical gel 2 g topical QID #100 grams 01/24/25 (Voltaren Arthritis Pain) morphine 15 mg immediate release 15 mg PO Q6H PRN severe pain 01/24/25 tablet (scale score 7-10) #12 tabs Allergies Allergy/AdvReac Type Severity Reaction Status Date / Time No Known Allergies (No Known Allergy Verified 01/24/25 12:57 Allergies*) Review of Systems Constitutional: Constitutional: Denies body ache(s), Denies chills and Denies fever(s) ENT: Denies dizziness Cardiovascular: Cardiovascular: Denies chest pain Musculoskeletal: Musculoskeletal: Reports arthralgias, Reports joint swelling and Reports limited range of motion Integumentary/Breasts: Skin/Breast: Denies erythema and Denies rash Neurologic: Denies dizziness PMFSH Past Medical History Medical History Anxiety Back pain Elevated cholesterol HTN (hypertension) Diabetes Surgical History H/O colonoscopy Hx of cystoscopy Hx of anterior cruciate ligament surgery Social History Social History Alcohol intake: never Patient Tobacco Use Status: Never used Tobacco Advance Directives: No Advance Directives Information Provided: Yes Physical Exam ED Vital Signs: Vital Signs - 24 hr 01/24/25 12:49 01/24/25 16:56 Temperature 98.0 F 96.9 F Pulse Rate 130 H 125 H Respiratory Rate 20 18 Blood Pressure 140/90 H 135/100 H Pulse Oximetry 97 98 Oxygen Delivery Method Room Air Room Air BMI result Body Mass Index 23.6 Const Other: The patient is quite tearful in triage but nontoxic appearing General: healthy appearing, alert and awake Nutritional Appearance: well nourished Orientation/consciousness: patient oriented x3 HENMT Head: Yes normocephalic and Yes atraumatic Eyes Eyelids: Yes eyelids normal Conjunctivae: conjunctivae normal Sclerae: sclerae normal Corneas: corneas normal Pupils: Equal, round and reactive pupils present EOM: EOMs intact bilaterally Neck Neck: Yes full ROM Resp Effort & Inspection: normal respiratory effort, able to speak in complete sentences and not labored Cardio Rate: regular rate Rhythm: regular rhythm Skin General skin exam: elasticity normal Neuro General: patient oriented x3 Cranial nerves: Yes Equal, round and reactive pupils present and Yes Bilaterally intact EOM present Cognition (Neuro): normal cognition Extrem Other: the left foot is cool to touch without discoloration. There is possibly minimal edema to the left foot. No calf tenderness on exam, negative Homans sign. Course Course Course Narrative: RME, this is a rapid medical exam performed by Kosta Whipple please refer to primary provider for complete H&P- 49-year-old male presents for evaluation of left foot pain. Patient reports severe left foot pain. Denies any trauma. He reports falling 1 month ago. He apparently missed an MRI appointment for his foot. He has a history of arterial insufficiency due to his all the pain I ordered an arterial ultrasound of the left lower extremity. His foot is cool to the touch put not called for discolored. Medications Administered Discontinued Medications Generic Name Dose Route Start Last Admin Trade Name Freq PRN Reason Stop Dose Admin Morphine Sulfate 15 mg 01/24/25 17:06 01/24/25 17:10 Morphine Sulfate Immed Release 15 Mg Tablet PO 01/24/25 17:07 15 mg ONCE ONE Administration Medical Decision Making Medical Decision Making [facility] Narrative: 49-year-old male presents for evaluation of pain to his left foot over the last month. He has no recent injury. X-rays were ordered with show arthritis but no injuries. Given his level of discomfort I did order an arterial ultrasound this is lower extremity was cool to the touch. This does not show any evidence of ischemic limb. The patient's labs are without any acute concerning abnormalities. There was no evidence of cellulitis. Plan to treat his pain symptomatically Differential Diagnosis Differential Diagnoses: The differential diagnosis associated with the presentation includes Chronic foot pain Arterial insufficiency Cellulitis Gout Lab Data [facility] Lab Attestation statement: I reviewed the patient's lab results. No leukocytosis or significant anemia. Normal platelet count. No significant chemistry abnormalities 01/24/25 14:09 01/24/25 14:09 Labs: Lab Results 01/24/25 Range/Units 14:09 WBC 4.3 L (4.8-10.8) X10*3/uL RBC 4.97 (4.60-5.80) X10*6/uL Hgb 15.1 (14.0-18.0) g/dl Hct 43.8 (42.0-52.0) % MCV 88.1 (80.0-98.0) fL MCH 30.4 (27.0-33.0) pg MCHC 34.5 (31.0-36.0) g/dl RDW 13.7 (11.0-16.0) % Plt Count 164 (160-400) X10*3/uL MPV 10.3 (9.4-12.4) fL Immature Gran % (Auto) 0.2 (0.0-0.4) % Neut % (Auto) 74.4 H (45-73) % Lymph % (Auto) 17.9 L (20-40) % [place] % (Auto) 6.6 (2-11) % Eos % (Auto) 0.7 (0-4) % Baso % (Auto) 0.2 (0-2) % Lymph # (Auto) 0.8 L (1.2-4.9) X10*3/uL [place] # (Auto) 0.3 (0.1-1.2) X10*3/uL Eos # (Auto) 0.0 (0.0-0.4) X10*3/uL Baso # (Auto) 0.0 (0.0-0.2) X10*3/uL Abs Immat Gran (auto) 0.01 (0.00-0.03) X10*3/uL Absolute Neuts (auto) 3.2 (2.0-8.3) x10*3/uL Absolute Nucleated RBC 0.000 (0.0-0.012) X10*3/uL Nucleated RBC % (auto) 0.0 (0.0-0.2) /100WBC Sodium 144 (135-145) mmol/L Potassium 3.8 (3.3-5.1) mmol/L Chloride 105 (96-108) mmol/L Carbon Dioxide 28 (22-29) mmol/L Anion Gap 15 (12-20) BUN 18 H (9-16) mg/dL Creatinine 0.83 (0.5-1.4) mg/dL Estim Creat Clear Calc 107.6 Estimated GFR > 60 Random Glucose 167 H (60-115) mg/dL Calcium 10.6 H D (8.4-10.2) mg/dL Total Bilirubin 0.8 (0.0-1.0) mg/dL AST 26 (5-37) U/L ALT 30 (0-40) U/L Alkaline Phosphatase 51 (39-117) U/L Total Protein 7.7 (6.5-8.0) g/dL Albumin 5.1 H (3.5-5.0) g/dL Independent Interpretation I performed an independent interpretation of an: Ultrasound Interpretation: FINDINGS: Mild hallux valgus deformity is present across the IP and MTP joints. Small marginal ossified is present along the medial first metatarsophalangeal joint. There is mild bony prominence involving the lateral head of the middle phalanx of the fourth digit. XR/XR foot LT min 3V IMPRESSION: Mild hallux valgus deformity. Mild first MTP joint osteoarthritis. No definite acute abnormality. Electronically signed by: Joesph Lehman MD 01/24/2025 02:54 PM EDT RP FINDINGS: LEFT FEMORAL RUNOFF VELOCITIES: The left common femoral artery measures 79 cm/s and triphasic. The left profunda femoral artery is 55 cm/s and is triphasic. The left proximal superficial femoral artery measures 86 cm/s and triphasic. The left mid superficial femoral artery is 67 cm/s and triphasic. The left distal right superficial femoral artery measures 47 cm/s and is triphasic. The left popliteal velocity measures 52 cm/s and is triphasic. The left posterior tibial artery velocity measures 52 cm/s and is triphasic. US/US arterial duplex LE LT IMPRESSION: 1. No sonographic evidence of significant peripheral vascular disease of the left lower extremity. Electronically signed by: Kumar Sandoval MD 01/24/2025 02:26 PM EDT Discharge Plan Discharge Clinical Impression: Chronic pain in left foot Patient Disposition: Home, Self-Care Instructions: Arthralgia (ED) Additional Instructions: Your x-ray showed mild arthritis but no fractures. The ultrasound of your leg did not show any issues with blood flow to your left leg or foot Your blood work was reassuring. Use ibuprofen/Tylenol for pain. You may use Voltaren cream as needed to the painful area. Use morphine as needed for severe, breakthrough pain. This may make you drowsy, do not drink alcohol or drive after taking it Prescriptions: New morphine 15 mg tablet 15 mg PO Q6H PRN (Reason: severe pain (scale score 7-10)) Qty: 12 0RF Rx Instructions: Partial Fill upon patient request. diclofenac sodium [Voltaren Arthritis Pain] 1 % gel 2 g topical QID Qty: 100 0RF Rx Instructions: apply to single elbow, wrist or hand; for hand includes palm/fingers/back of hand No Action celecoxib [Celebrex] 200 mg capsule 200 mg PO BID 30 Days Qty: 60 3RF lisinopril 20 mg tablet 20 mg PO DAILY pyridoxine (vitamin B6) [Vitamin B-6] 100 mg Tablet 100 mg PO DAILY hydroxyzine pamoate 25 mg Capsule 25 mg PO BEDTIME cyclobenzaprine 5 mg tablet 1 tab PO DAILY PRN (Reason: Muscle Spasm) metformin 500 mg tablet 500 mg PO DAILY Qty: 10 0RF metformin 500 mg tablet extended release 24 hr 500 mg PO DAILY Qty: 30 1RF methylprednisolone [Medrol (Elia)] 4 mg tablets,dose pack 4 mg PO QAM Qty: 21 0RF Rx Instructions: Take per package instructions methocarbamol 750 mg tablet 1,500 mg PO Q8H PRN (Reason: pain, moderate) Qty: 20 0RF prednisone 20 mg tablet 40 mg PO DAILY Qty: 8 0RF cephalexin 500 mg capsule 500 mg PO QID 10 Days Qty: 40 0RF morphine 15 mg tablet 15 mg PO Q8H PRN (Reason: pain) Qty: 15 0RF Rx Instructions: Partial Fill upon patient request. doxycycline hyclate 100 mg tablet 100 mg PO BID Qty: 20 0RF silver sulfadiazine [Silvadene] 1 % cream 1 appl topical BID Qty: 85 0RF Rx Instructions: apply a 1.5 mm thickness polyethylene glycol 3350 [ClearLax] 17 gram/dose powder 17 g PO DAILY Qty: 119 0RF sennosides [senna] 8.6 mg tablet 8.6 mg PO BID PRN (Reason: constipation) Qty: 14 0RF docusate sodium 100 mg capsule 100 mg PO BID Qty: 14 0RF oxycodone 5 mg tablet 5 mg PO Q6H PRN (Reason: pain) Qty: 20 0RF Rx Instructions: Partial Fill upon patient request. doxycycline hyclate 100 mg tablet 100 mg PO BID Qty: 20 0RF tadalafil 5 mg tablet 5 mg PO DAILY PRN (Reason: sexual activity) 90 Days Qty: 90 1RF escitalopram oxalate 10 mg tablet 10 mg PO DAILY clonazepam 1 mg tablet 1 mg PO TID PRN meloxicam 7.5 mg tablet 7.5 mg PO BID escitalopram oxalate 5 mg tablet 5 mg PO DAILY lorazepam 0.5 mg tablet 0.5 mg PO BID PRN trazodone 50 mg tablet 50 mg PO BEDTIME PRN (Reason: insomnia) Print Language: Austrian
[2025-01-24 14:14] LABS: MANUAL DIFF FLAG NO
[2025-01-24 14:15] LABS: Hematocrit 43.8 % (42.0-52.0); Hemoglobin 15.1 g/dl (14.0-18.0); Imm Gran Abs Auto 0.01 X10*3/uL (0.00-0.03); Imm Gran Pct Auto 0.2 % (0.0-0.4); Lymphocytes Absolute Auto 0.8 X10*3/uL (1.2-4.9); Mean Corpuscular HGB Conc 34.5 g/dl (31.0-36.0); Mean Corpuscular Hemoglobin 30.4 pg (27.0-33.0); Mean Corpuscular Volume 88.1 fL (80.0-98.0); NRBC Abs Auto 0.000 X10*3/uL (0.0-0.012); NRBC Pct Auto 0.0 /100WBC (0.0-0.2); Platelet Count 164 X10*3/uL (160-400); Red Blood Count 4.97 X10*6/uL (4.60-5.80); White Blood Count 4.3 X10*3/uL (4.8-10.8)
[2025-01-24 14:31] LABS: Alanine Aminotransferase 30 U/L (0-40); Albumin Level 5.1 g/dL (3.5-5.0); Alkaline Phosphatase 51 U/L (39-117); Anion Gap 15 (12-20); Aspartate Amino Transferase 26 U/L (5-37); Blood Urea Nitrogen 18 mg/dL (9-16); Calcium 10.6 mg/dL (8.4-10.2); Carbon Dioxide 28 mmol/L (22-29); Chloride 105 mmol/L (96-108); Creatinine Clr Calc Pharmacy 107.6; Estimated Glomerular Filt Rate > 60; Potassium 3.8 mmol/L (3.3-5.1); Sodium 144 mmol/L (135-145); Total Protein 7.7 g/dL (6.5-8.0)
[2025-01-24 16:56] VITALS: BP 135/100; PULSE 125; RESP 18; TEMP 36.1; O2SAT 98
[2025-01-24] MEDS: Morphine Sulfate Immed Release 15 MG TABLET PO (17:10)
--- NOTE | 2025-01-24 17:39 | PC.NURSE ---
pt medicated per MAR for 10/10 L leg pain. pt reporting difficulty making appts w providers d/t no phone discussed that pt should follow up w PCP to regarding cont'd pain and further work up, in addition to social service support in the community. pt may benefit from social and political studies professor/community navigator to assist pt w socioeconomic needs.
[2025-01-24 17:49] VITALS: BP 135/100; PULSE 125; RESP 18; TEMP 36.1; O2SAT 98
== END 2025-01-24 17:49 | disposition home or self-care (01) ==
PROVIDERS: Physician Assistant; Emergency Provider Emergency Medicine; PCP Family Medicine
DX: M79.672 Pain in left foot (principal); G89.29 Other chronic pain; I10 Essential (primary) hypertension; E11.9 Type 2 diabetes mellitus without complications; Z86.79 Personal history of other diseases of the circulatory system; Z91.81 History of falling
CPT/HCPCS: 36415; 73630; 80053; 85025; 93926; 99284

== ENCOUNTER → 2025-01-24 12:57 | Outpatient (BNV) | payer OTHER, SELFPAY | PROVIDERS: Visit Provider Radiology Diagnostic Radiology | DX: M79.605 Pain in left leg (principal); M19.072 Primary osteoarthritis, left ankle and foot | CPT/HCPCS: 73630; 93926 ==

== ENCOUNTER 2025-02-12 15:54 | Inpatient (IN) | payer MEDICAID, OTHER, SELFPAY ==
--- OUTSIDE RECORDS SUMMARY | 2025-02-08 15:15 | XMS_ITS | Encounter Summary ---
[facility] Address [address] [place] [address] Care Team Providers Care Sprinkler Inspector Name Role Phone Jojo Jaramillo MD Primary Care Provider [phone] Reason for Referral * Neurology (Routine) - Authorized Specialty Diagnoses / Procedures Referred By Diamante de souza Referred To Contact Neurology Diagnoses Lumbosacral radiculopathy Complex regional pain syndrome type 1 of left lower extremity Procedures EMG one limb Kenneth Cameron DPM [address] [address] Phone: tel: fax: [address] [address] Phone: tel: Referral ID Status Reason Start Date Expiration Date V isits Requested Visits Authorized [id number] Authorized 02/08/2025 02/08/2026 1 1 Reason for Visit * Consultation (Urgent) - Closed Specialty Diagnoses / Procedures Referred By Diamante de souza Referred To Contact Podiatry / Orthopaedic Surgery Diagnoses Non-pressure chronic ulcer of other part of left foot limited to breakdown of skin (CMS/HCC V24, CMS/HCC V28) Sara Pimentel FNP [address] [place] [address] Phone: tel: fax: Kenneth Cameron DPM [address] [address] Phone: tel: fax: Referral ID Status Reason Start Date Expiration Date V isits Requested Visits Authorized [id number] Closed Specialty Services Required 02/07/2025 02/07/2026 1 1 Encounter Details Date Type Department Care Team (Late st Contact Info) Description 02/08/2025 3:15 PM EDT Consult Orthopedic Surgery - [place] [address] [facility] [address] [place] [id number] Kenneth Cameron DPM [address] [facility] [address] [place] [address] Controlled type 2 diabetes with neuropathy (CMS/HCC V24, CMS/HCC V28) (Primary Dx); Non-pressure chronic ulcer of other part of left foot limited to breakdown of skin (CMS/HCC V24, CMS/HCC V28); Lumbosacral radiculopathy; Complex regional pain syndrome type 1 of left lower extremity; Contusion of left foot, initial encounter Social History Tobacco Use Types Packs/Day Years Used Date Smoking Tobacco: Never Assessed Sex and Gender Information Value Date Recorded Sex Assigned at Not on file Legal Sex Male 1:47 PM EDT Gender Identity Not on file Sexual Orientation Not on file documented as of this encounter Ordered Prescriptions Prescription Sig Dispense Quantity Refills Last Filled Start Date End Date gabapentin (NEURONTIN) 300 mg capsule Take 1 capsule (300 mg total) by mouth 3 (three) times a day. 270 each 3 02/08/2025 documented in this encounter Progress Notes * Kenneth Cameron DPM - 02/08/2025 3:15 PM EDT Referring MD: Sara Pimentel FNP Last PCP visit: 01/31/2025 IDENTIFIER: Serafin Knutson is a 49 y.o. year old male who presents for consultation. CC: Left foot pain HPI: 49-year-old male with history of lower back pathology and diabetes presents office with chief complaint of severe pain in the left foot. Patient notes he dropped a case of water on his left foot and is having severe tenderness. Patient notes that he takes gabapentin 100 mg and ibuprofen 200 mg but it is not helping with his pain at all. Patient had recent x-rays which will be reviewed during today's visit. Patient is not using a brace or offloading shoe. Patient is here for evaluation treatment ROS: GENERAL: Pt denies nausea, fever, vomiting, chills, or shortness of breath. Pt in NAD. CARDIOLOGY: pt denies chest pain, palpitations LUNGS: pt denies shortness of breath MUSCULOSKELETAL: See HPI, otherwise no joint pain or swelling, back pain, or muscle pain. SKIN: see HPI, otherwise no lesions, rash or itching NEURO: No persistent headache, weakness or numbness The remainder of the review of systems is noncontributory PAST MEDICAL HISTORY: There is no problem list on file for this patient. SOCIAL HISTORY: Social History Tobacco Use Smoking status: Not on file Smokeless tobacco: Not on file Substance Use Topics Alcohol use: Not on file ACTIVE MEDICATIONS: No outpatient medications have been marked as taking for the 02/08/25 encounter (Consult) with Kenneth Diaz DPM. ALLERGIES: Patient has no known allergies. PHYSICAL EXAM: There were no vitals taken for this visit. PODIATRIC EXAMINATION: GENERAL: Patient appears well nourished, with NAD. VASCULAR: Dorsalis pedis pulses are 2/4 bilaterally and Posterior tibial pulses are 2/4 bilaterally. Capillary filling time within normal limits the digits. No pallor on elevation or rubor on dependency. Positive hair growth. Few varicosities. +1 pitting edema to the left lower extremity. Denies rest pain or claudication pain. NEUROLOGICAL: Sharp/dull sensation diminished, protective sensation intact on [place]. Severe peripheral neuropathy throughout the feet bilaterally ORTHOPEDIC: Good muscle strength 5/5 of all flexors and extensors. Dorsi flexion of ankle ,10 degrees, plantar flexion WNL. No muscle atrophy. Swelling through the midfoot with increased intensity ofpain near the second interspace. Adequate range of motion without crepitus. Adequate range of motion at the ankle without difficulty off weightbearing. Severe diffuse tenderness throughout the midfoot and forefoot DERMATOLOGICAL:.Granular eschar over the second interspace dorsally at the webspace of the 2nd and 3rd digit BIOMECHANICS: STJ ROM wnl, MTJ ROM wnl, 1st MPJ ROM wnl. IMAGING: No fractures dislocations. Minimal arthritic changes to the forefoot. Rectus alignment of the midfoot. Diffuse soft tissue swelling throughout the foot IMPRESSION: 1. Controlled type 2 diabetes with neuropathy (CMS/HCC V24, [facility] V28) 2. Non-pressure chronic ulcer of other part of left foot limited to breakdown of skin ([facility] V24,[facility] V28) 3. Lumbosacral radiculopathy 4. Complex regional pain syndrome type 1 of left lower extremity 5. Contusion of left foot, initial encounter PLAN: Pt was seen and examined, history reviewed. Patient encouraged to keep his sugars well-controlled as possible to limit any neuropathic symptomsassociated with diabetic condition Patient is having a severe response to pain status post contusion of water bottles falling on his foot. Patient's x-rays were reviewed showing no fracture or concern for posttraumatic arthritis. Concern for patient having CRPS status post injury exacerbated by history of lower back lumbosacral radiculopathy. Patient was placed in a cam boot and instructed to use it for all weightbearing activity to offload the midfoot. Ordered EMG to evaluate nerve conduction velocity to the left leg. Patient is currently on 100 mg of gabapentin. Gabapentin was increased to 300 mg 3 times a day for the next 90 days Small skin lesion to the dorsum of the second interspace. No fluctuance or concern for underlying foot infection No induration in the left foot. Outside of pain out of proportion there is minimal concern for compartment syndrome Kenneth Cameron DPM documented in this encounter Plan of Treatment Upcoming Encounters Date Type Department Care Team (Late st Contact Info) Description 03/22/2025 9:00 AM EDT Office Visit Orthopedic Surgery - [place] [address] [phone] Kenneth Cameron DPM [address] [address] Scheduled Orders Name Type Priority Associated Diagnoses Orde r Schedule EMG one limb Neurology Routine Lumbosacral radiculopathy Complex regional pain syndrome type 1 of left lower extremity 1 Occurrences starting 02/08/2025 until 02/08/2026 documented as of this encounter Visit Diagnoses Diagnosis Controlled type 2 diabetes with neuropathy ([facility] V24, [facility] V28)- Primary Type II or unspecified type diabetes mellitus with neurological manifestations, not stated as uncontrolled Non-pressure chronic ulcer of other part of left foot limited to breakdown of skin (CMS/[facility] V24, CMS/[facility] V28) Lumbosacral radiculopathy Thoracic or lumbosacral neuritis or radiculitis, unspecified Complex regional pain syndrome type 1 of left lower extremity Contusion of left foot, initial encounter documented in this encounter Orders Outpatient Referral Count Last Ordered Date Fir st Ordered Date AMB REFERRAL TO PODIATRY 1 02/08/2025 documented in this encounter Care Teams Sprinkler Inspector Relationship Specialty Start Date End Date Jojo Jaramillo MD [address] [place] [address] PCP - General Family Medicine 12/19/24 documented as of this encounter
--- NOTE | ~2025-02-12 | XR_ITS ---
EXAMINATION: XR FOOT, LEFT CLINICAL INFORMATION: Pain COMPARISON: January 24 and December 21, 2024 TECHNIQUE: AP, lateral, and oblique views of the left foot. FINDINGS: There is juxta-articular osteopenia involving the second, third, and fourth MTP joint and the medial fifth metatarsal head. The cortical white line of the medial second and third metatarsal heads appear indistinct. There is also focal osteopenia involving the lateral margin of the fifth metatarsal head. There is faint periosteal bone along the medial metadiaphysis of the second proximal phalanx is present. There is hallux valgus deformity with lateral first MTP joint marginal osteophytes. No other abnormalities are evident. XR/XR foot LT min 3V IMPRESSION: Suspected erosive changes involving the bare areas of the second, third, fourth, and fifth metatarsal heads with possible mild periosteitis involving the lateral base of the second proximal phalanx raises question of an inflammatory arthropathy such as psoriatic arthritis or rheumatoid arthritis. Hallux valgus deformity with mild osteoarthritis. Electronically signed by: Joesph Lehman MD 02/13/2025 02:07 PM EDT
--- NOTE | ~2025-02-12 | US_ITS ---
EXAMINATION: US TRIPLEX LOWER EXTREMITY, LEFT CLINICAL INFORMATION: Pain, left lower extremity. COMPARISON: None available. TECHNIQUE: Color-flow triplex imaging with spectral analysis and compression Doppler were performed on the left lower extremity. FINDINGS: Respiratory variation, normal compression and augmented flow are demonstrated in the interrogated left common femoral vein, superficial femoral vein, profunda femoral vein, popliteal vein and midcalf peroneal and posterior tibial venous segments . There is no Riggs's cyst. US/US venous duplex LE LT IMPRESSION: No acute deep venous thrombosis interrogated veins, left lower extremity. Negative for DVT. Electronically signed by: Talon Madrigal MD 02/13/2025 01:43 PM EDT
--- NOTE | 2025-02-12 15:57 | ECG_ITS ---
Test Reason : QT CHECK Blood Pressure : */* mmHG Vent. Rate : 83 BPM Atrial Rate : 83 BPM P-R Int : 126 ms QRS Dur : 96 ms QT Int : 376 ms P-R-T Axes : 54 2 37 degrees QTcB Int : 441 ms Normal sinus rhythm Normal ECG When compared with ECG of 16-Mar-2022 00:10, No significant change was found Referred By: Chantell Luna Electronically Signed By: KATELYNN DANIELS MD
[2025-02-12 16:08] VITALS: BP 138/90; PULSE 92; O2SAT 99
[2025-02-12 16:29] VITALS: BP 145/95; PULSE 99; RESP 16; TEMP 37.2; O2SAT 98; BMI 25.7
[2025-02-12 16:36] VITALS: BP 145/95; PULSE 99; RESP 16; TEMP 37.2; O2SAT 98
[2025-02-12 17:02] LABS: MANUAL DIFF FLAG NO
[2025-02-12 17:04] LABS: Hematocrit 35.1 % (42.0-52.0); Hemoglobin 12.1 g/dl (14.0-18.0); Imm Gran Abs Auto 0.01 X10*3/uL (0.00-0.03); Imm Gran Pct Auto 0.2 % (0.0-0.4); Lymphocytes Absolute Auto 0.8 X10*3/uL (1.2-4.9); Mean Corpuscular HGB Conc 34.5 g/dl (31.0-36.0); Mean Corpuscular Hemoglobin 30.3 pg (27.0-33.0); Mean Corpuscular Volume 88.0 fL (80.0-98.0); NRBC Abs Auto 0.000 X10*3/uL (0.0-0.012); NRBC Pct Auto 0.0 /100WBC (0.0-0.2); Platelet Count 154 X10*3/uL (160-400); Red Blood Count 3.99 X10*6/uL (4.60-5.80); White Blood Count 4.1 X10*3/uL (4.8-10.8)
[2025-02-12 17:17] LABS: COVID-19 Test Negative (Negative); IDNOW Serial# 58CA691E
[2025-02-12 17:19] LABS: Alanine Aminotransferase 41 U/L (0-40); Albumin Level 4.0 g/dL (3.5-5.0); Alkaline Phosphatase 47 U/L (39-117); Anion Gap 11 (12-20); Aspartate Amino Transferase 27 U/L (5-37); Blood Urea Nitrogen 7 mg/dL (9-16); Calcium 9.1 mg/dL (8.4-10.2); Carbon Dioxide 30 mmol/L (22-29); Chloride 109 mmol/L (96-108); Creatinine Clr Calc Pharmacy 136.0; Estimated Glomerular Filt Rate > 60; Potassium 3.5 mmol/L (3.3-5.1); Sodium 146 mmol/L (135-145); Total Protein 6.0 g/dL (6.5-8.0)
[2025-02-12 17:20] LABS: Acetaminophen LAB < 3 mcg/mL (<30); Salicylate < 5.0 mg/dL (15-30)
--- OUTSIDE RECORDS SUMMARY | 2025-02-12 18:50 | XMS_ITS | Encounter Summary ---
Author Organization [employer] Address 75 [facility] 7t [place] [address] Care Team Providers Care Associate Pastor Name Role Phone Jojo Jaramillo MD Primary Care Provider [phone] Reason for Referral * Consultation (Urgent) - Closed Specialty Diagnoses / Procedures Referred By Contac t Referred To Contact Podiatry Diagnoses Ingrown toenail of both feet Jojo Jaramillo MD [address] [place] [address] Phone: tel: fax: Bob Du, DPShireen [address] [facility] 1st Floor (Left) [place] [address] Phone: tel: fax: Referral ID Status Reason Start Date Expiration Date V isits Requested Visits Authorized [id number] Closed Specialty Services Required 09/15/2023 09/14/2024 1 1 Encounter Details Date Type Department Care Team (Late st Contact Info) Description 09/15/2023 Orders Only [facility] MEDICINE [address] [place] [address] [phone] Jojo Jaramillo MD [address] [place] [phone] Ingrown toenail of both feet (Primary Dx) [...] Description 03/07/2025 9:30 AM EDT Clinical Support [facility] MED & PEDS 505 [place] [address] Santa Wade, DAGOBERTO 505 [place] [address] 05/07/2025 9:00 AM EST Office Visit [facility] OPTOMETRY [address] [place] [address] Jennifer Kelly, OD [address] [place] [address] Scheduled Referrals Name Type Priority Associated Diagnoses [...] documented as of this encounter Care Teams Associate Pastor Relationship Specialty Start Date End Date Jojo Jaramillo MD [address] [place] [address] PCP - General Family Medicine 12/19/18 documented as of this encounter
--- OUTSIDE RECORDS SUMMARY | 2025-02-12 18:50 | XMS_ITS | Encounter Summary ---
Author Organization [employer] Address [address] [facility] [address] 7t [place] [address] Care Team Providers Care Lithopone Mill Worker Name Role Phone Jojo Jaramillo MD Primary Care Provider [phone] Reason for Visit * Reason Comments Med Refill Encounter Details Date Type Department Care Team (Late st Contact Info) Description 12/25/2024 Refill [facility] MED & PEDS [address] [place], [place] [phone] Dima Castillo MD 230 [place] [address] Arthralgia of both knees; Chronic midline low [...] Answer Date Recorded Patient Health Questionnaire-9 Score 16 12/14/2024 Patient Health Questionnaire-9 Score 16 12/14/2024 Last PHQ-9: Questionnaire Data Not on file 0 12/14/2024 Housing Stability Answer Date Recorded What is [...] Date Recorded Patient Health Questionnaire-2 Score 6 12/14/2024 Internet Access Answer Date Recorded Internet Access [...] Description 03/07/2025 9:30 AM EDT Clinical Support [facility] MED [facility] PEDS 505 [place] [address] Santa Wade, RN 505 [place] [address] 05/07/2025 9:00 AM EST Office Visit [facility] OPTOMETRY [address] [place] [address] RobinJennifer brunner, OD 230 [place] [address] documented as of this encounter Visit Diagnoses Diagnosis Arthralgia of both knees Chronic midline low back pain, unspecified whether sciatica present documented in this encounter Additional Health Concerns Assessment Noted Time PHQ-9 Depression Total Score: 16 025 1:34 PM EDT documented as of this encounter Care Teams Lithopone Mill Worker Relationship Specialty Start Date End Date Jojo Jaramillo MD [address] [place] [address] PCP - General Family Medicine 12/19/18 documented as of this encounter
--- OUTSIDE RECORDS SUMMARY | 2025-02-12 18:50 | XMS_ITS | Encounter Summary ---
Author Organization [employer] Address 75 [facility] 7t [place] [address] Care Team Providers Care Cloth Finishing Range Back Tender Name Role Phone Jojo Jaramillo MD Primary Care Provider [phone] Reason for Referral * Medications - Closed Specialty Diagnoses / Procedures Referred By Contac t Referred To Contact Diagnoses Chronic low back pain, unspecified back pain laterality, unspecified whether sciatica present Chronic pain of right knee Bilateral leg pain Other chronic pain Sprain of left ankle, unspecified ligament, subsequent encounter Chronic pain of left ankle Closed fracture of lumbar vertebra, unspecified fracture morphology, unspecified lumbar vertebral level, initial encounter ([facility]) Jojo Jaramillo MD [address] [place] [address] Phone: tel: fax: Referral ID Status Reason Start Date Expiration Date Visits Re quested Visits Authorized [id number] Closed 1 1 Encounter Details Date Type Department Care Team (Late st Contact Info) Description 12/28/2024 Orders Only [facility] MEDICINE [address] [place] [address] Jojo Jaramillo MD [address] [place] [address] Chronic low back pain, unspecified back pain laterality, unspecified whether sciatica present; Chronic pain of right knee; Bilateral leg pain; Other chronic pain; Sprain of left ankle, unspecified ligament, subsequent encounter; Chronic pain of left ankle; Closed fracture of lumbar vertebra, unspecified fracture morphology, unspecified lumbar vertebral level, initial encounter ([facility]) Social History Tobacco Use Types Packs/Day Years [...] Upcoming Encounters Date Type Department Care Team ([facility] st Contact Info) Description 03/07/2025 9:30 AM EDT Clinical Support [facility] CHC MED & PEDS 505 [place] [address] Santa Wade, RN 505 [place] [address] 05/07/2025 9:00 AM EST Office Visit [facility] OPTOMETRY [address] [place] [address] Jennifer Kelly, OD 230 [place] [address] documented as of this encounter Visit Diagnoses Diagnosis Chronic low back pain, unspecified back pain laterality, unspecified whether sciatica present Chronic pain of right knee Bilateral leg pain Pain in soft tissues of limb Other chronic pain Sprain of left ankle, unspecified ligament, subsequent encounter Chronic pain of left ankle Closed fracture of lumbar vertebra, unspecified fracture morphology, unspecified lumbar vertebral level, initial encounter ([facility]) documented in this encounter Additional Health Concerns Assessment Noted Time PHQ-9 Depression Total Score: 16 07/ 025 1:34 PM EDT documented as of this encounter Care Teams Cloth Finishing Range Back Tender Relationship Specialty Start Date End Date Jojo Jaramillo MD 230 [place] [address] PCP - General Family Medicine 12/19/18 documented as of this encounter
--- OUTSIDE RECORDS SUMMARY | 2025-02-12 18:50 | XMS_ITS | Encounter Summary ---
Author Organization [employer] Address [address] [facility] [address] 7[address] [place] [address] Care Team Providers Care Mixing Machine Tender Cork Rod Name Role Phone Jojo Jaramillo MD Primary Care Provider [phone] Encounter Details Date Type Department Care Team (Late st Contact Info) Description 12/22/2024 Orders Only [facility] MEDICINE 230 [place], [place] [phone] Jojo Jaramillo MD 230 [place], [place] [phone] Closed fracture of lumbar vertebra, unspecified fracture morphology, unspecified lumbar vertebral level, initial encounter ([facility]) (Primary Dx); Closed fracture dislocation of lumbar spine, initial encounter ([facility]); Sprain of left ankle, unspecified ligament, initial encounter Social History Tobacco Use Types [...] Description 03/07/2025 9:30 AM EDT Clinical Support [facility] MED & PEDS 505 [place] [address] Santa Wade, RN 505 [place] [address] 05/07/2025 9:00 AM EST Office Visit [facility] OPTOMETRY [address] [place] [address] Jennifer Kelly, OD [address] [place] [address] documented as of this encounter Visit Diagnoses Diagnosis Closed fracture of lumbar vertebra, unspecified fracture morphology, unspecified lumbar vertebral level, initial encounter ([facility])- Primary Closed fracture dislocation of lumbar spine, initial encounter ([facility]) Sprain of left ankle, unspecified ligament, initial encounter documented in this encounter Additional Health Concerns Assessment Noted Time PHQ-9 Depression Total Score: 16 025 1:34 PM EDT documented as of this encounter Care Teams Mixing Machine Tender Cork Rod Relationship Specialty Start Date End Date Jojo Jaramillo MD 230 [place] [address] PCP - General Family Medicine 12/19/18 documented as of this encounter
--- OUTSIDE RECORDS SUMMARY | 2025-02-12 18:50 | XMS_ITS | Encounter Summary ---
Author Organization [employer] Address [address] [facility] [address] 7[address] [place] [address] Care Team Providers Care Art Teacher Name Role Phone Jojo Jaramillo MD Primary Care Provider [phone] Encounter Details Date Type Department Care Team (Late st Contact Info) Description 01/27/2024 Orders Only [facility] MEDICINE 230 [place], [place] [phone] Jojo Jaramillo MD [address] [place], [place] [phone] Social History Tobacco Use Types Packs/Day Years [...] Description 03/07/2025 9:30 AM EDT Clinical Support [facility] CHC MED & PEDS 505 [place] [address] Santa Wade, RN 505 [place] [address] 05/07/2025 9:00 AM EST Office Visit [facility] OPTOMETRY 267 [place] [address] Robin, Jennifer, OD 230 [place] [address] documented as of this encounter Visit Diagnoses Not on filedocumented in this encounter Additional Health Concerns Assessment Noted Time PHQ-9 Depression Total Score: 19 024 10:43 AM EDT documented as of this encounter Care Teams Art Teacher Relationship Specialty Start Date End Date Jojo Jaramillo MD [address] [place] [address] PCP - General Family Medicine 12/19/18 documented as of this encounter
--- OUTSIDE RECORDS SUMMARY | 2025-02-12 18:50 | XMS_ITS | Encounter Summary ---
Author Organization [employer] Address 75 [facility] 7 [place] [address] Care Team Providers Care Steam Fitter Supervisor Name Role Phone Jojo Jaramillo MD Primary Care Provider [phone] Reason for Referral * Consultation (Routine) - Closed Specialty Diagnoses / Procedures Referred By Contac t Referred To Contact Chiropractic Medicine Diagnoses Chronic low back pain, unspecified back pain laterality, unspecified whether sciatica present Chronic pain of right knee Bilateral leg pain Jojo Jaramillo MD [address] [place] [address] Phone: tel: fax: [facility] [address] [place] [address] Phone: tel: fax: Referral ID Status Reason Start Date Expiration Date V isits Requested Visits Authorized [id number] Closed Specialty Services Required 09/10/2024 09/10/2025 1 1 Encounter Details Date Type Department Care Team (Late st Contact Info) Description 09/10/2024 Orders Only [facility] MEDICINE [address] [place] [address] Jojo Jaramillo MD [address] [place] [address] Chronic low back pain, unspecified back pain [...] Upcoming Encounters Date Type Department Care Team ([facility] st Contact Info) Description 03/07/2025 9:30 AM EDT Clinical Support [facility] CHC MED & PEDS 505 [place] [address] Santa Wade, RN 505 [place] [address] 05/07/2025 9:00 AM EST Office Visit [facility] OPT[facility] [address] [place] [address] Jennifer Kelly, OD [address] [place] [address] Scheduled Referrals Name Type Priority Associated Diagnoses Orde r Schedule Referral to Chiropractic Outpatient Referral Routine Chronic low back pain, unspecified back pain laterality, unspecified whether sciatica present Chronic pain of right knee Bilateral leg pain Expected: 09/10/2024 (Approximate), Expires: 09/10/2025 documented as of this encounter Procedures Procedure Name Priority Date/Time Associated Diagnosis Comments XR LUMBAR SPINE 2-3 VIEWS Routine 09/19/2024 8:54 PM EDT documented in this encounter Results * XR Lumbar Spine 2-3 Views (09/19/2024 8:54 PM EDT) Anatomical Region Laterality Modality Spine, L-spine Radiographic Melissa ging 09/19/2024 8:54 PM EDT Narrative 09/19/2024 8:56 PM EDT [facility] [address] [place] [address] XRay Report Signed Patient: Tomy King MR#: [id number] : 1975 Acct:[id number] Age/Sex: 48 / M ADM Date: 09/19/24 Loc: .ED Attending Dr: Ordering Physician: Susie Barrett Date of Service: 09/19/24 Procedure(s): XR lumbar spine 2-3V Accession Number(s): [id number] cc: Susie Barrett; Jojo Jaramillo MD CLINICAL HISTORY: pain 3 views lumbar spine Comparison: MRI of the lumbar spine from 08/07/2024. Findings: No significant change in vertebral heights are alignments of 5 lumbar vertebrae. Redemonstration of the multifocal facet arthropathy, greater than expected for age. Vascular calcifications noted. 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 IMPRESSION: Multifocal facet arthropathy by radiographs. This document has been electronically signed by: Malcolm Hayward MD on 09/19/2024 20:54:06 Dictated By: Malcolm Hayward MD Signed By: <Electronically signed by Malcolm Hayward MD in OV> 09/19/242054 DD/ 53 TD/TT: 09/19/242053 Sand Wheeler: Procedure Note Donotjuanchointerpreter, Image - 09/19/[address] [address] XRay Report Signed Patient: Tomy KingMR#: [id number] : 1975Acct:[id number] Age/Sex: 48 / MADM Date: 09/19/24 Loc: HO.ED Attending Dr: Ordering Physician: Susie Barrett Date of Service: 09/19/24 Procedure(s): XR lumbar spine 2-3V Accession Number(s): [id number] cc: Susie Barrett; Jojo Jaramillo MD CLINICAL HISTORY: pain 3 views lumbar spine Comparison: MRI of the lumbar spine from 08/07/2024. Findings: No significant change in vertebral heights are alignments of 5 lumbar vertebrae. Redemonstration of the multifocal facet arthropathy, greater than expected for age. Vascular calcifications noted. 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 IMPRESSION: Multifocal facet arthropathy by radiographs. This document has been electronically signed by: Malcolm Hayward MD on 09/19/2024 20:54:06 Dictated By: Malcolm Hayward MD Signed By: <Electronically signed by Malcolm Hayward MD in OV> 09/19/242054 DD/ 53 TD/TT: 09/19/242053 Sand Wheeler: [facility] External Provider IMG XR PROCEDURES Edited Result - Final documented in this encounter Visit Diagnoses Diagnosis Chronic low back pain, unspecified back pain laterality, unspecified whether sciatica present- Primary Chronic pain of right knee Bilateral leg pain Pain in soft tissues of limb documented in this encounter Additional Health Concerns Assessment Noted Time PHQ-9 Depression Total Score: 5 04/16/20 24 7:02 AM EST documented as of this encounter Care Teams Steam Fitter Supervisor Relationship Specialty Start Date End Date Jojo Jaramillo MD 230 [place] [address] PCP - General Family Medicine 12/19/18 documented as of this encounter
--- OUTSIDE RECORDS SUMMARY | 2025-02-12 18:50 | XMS_ITS | Encounter Summary ---
Author Organization [employer] Address 75 [facility] 7t [place] [address] Care Team Providers Care Agriculture Laboratory Technician Name Role Phone Jojo Jaramillo MD Primary Care Provider [phone] Reason for Visit * Reason Comments Med Refill Encounter Details Date Type Department Care Team (Late st Contact Info) Description 02/08/2025 Refill [facility] MEDICINE 230 [place], [place] [phone] Sara Pimentel FNP 230 [place], [place] [phone] Sciatica of left side Social History Tobacco Use Types Packs/Day Years [...] Date Recorded Patient Health Questionnaire-9 Score 16 02/01/2025 Patient Health Questionnaire-9 Score 16 02/01/2025 Last PHQ-9: Questionnaire Data Not on file 0 02/01/2025 Housing Stability Answer Date Recorded What is [...] Date Recorded Patient Health Questionnaire-2 Score 6 02/01/2025 Internet Access Answer Date Recorded Internet Access [...] Description 03/07/2025 9:30 AM EDT Clinical Support [facility] CHC MED & PEDS 505 [place] [address] Santa Wade, RN 505 [place] [address] 05/07/2025 9:00 AM EST Office Visit [facility] OPTOMETRY [address] [place] [address] Robin, Jennifer, OD 230 [place] [address] documented as of this encounter Visit Diagnoses Diagnosis Sciatica of left side documented in this encounter Additional Health Concerns Assessment Noted Time PHQ-9 Depression Total Score: 16 025 12:11 PM EDT documented as of this encounter Care Teams Agriculture Laboratory Technician Relationship Specialty Start Date End Date Jojo Jaramillo MD 230 [place] [address] PCP - General Family Medicine 12/19/18 documented as of this encounter
--- OUTSIDE RECORDS SUMMARY | 2025-02-12 18:50 | XMS_ITS | Encounter Summary ---
Author Organization [employer] Address [address] [facility] [address] 7[address] [place] [address] Care Team Providers Care Gin Clerk Name Role Phone Jojo Jaramillo MD Primary Care Provider Reason for Visit * Reason Comments Med Refill Encounter Details Date Type Department Care Team (Late st Contact Info) Description 12/29/2024 Refill [facility] CHC MED & PEDS [address] [place], [place] [phone] Jojo Jaramillo MD 230 [place] [address] Arthralgia of both knees; Chronic midline low [...] [facility] 505 [place] [address] Santa Wade, RN 505 [place] [address] 05/07/2025 9:00 AM EST Office Visit [facility] OPTOMETRY [address] [place] [address] Robin, Jennifer, OD 230 [place] [address] documented as of this encounter Visit Diagnoses Diagnosis Arthralgia of both knees Chronic midline low back pain, unspecified whether sciatica present documented in this encounter Additional Health Concerns Assessment Noted Time PHQ-9 Depression Total Score: 16 025 1:34 PM EDT documented as of this encounter Care Teams Gin Clerk Relationship Specialty Start Date End Date Jojo Jaramillo MD [address] [place] [address] PCP - General Family Medicine 12/19/18 documented as of this encounter
--- OUTSIDE RECORDS SUMMARY | 2025-02-12 18:50 | XMS_ITS | Encounter Summary ---
Author Organization [employer] Address 75 [facility] 7t [place] [address] Care Team Providers Care Gold Leaf Roller Name Role Phone Jojo Jaramillo MD Primary Care Provider [phone] Reason for Visit * Reason Onset Date Comments Created In Error 03/09/2024 Encounter Details Date Type Department Care Team ([facility] st Contact Info) Description 03/09/2024 Telephone [facility] MEDICINE 230 [place], [place] [phone] Jojo Jaramillo MD 230 [place], [place] [phone] Created In Error Social History Tobacco Use [...] Description 03/07/2025 9:30 AM EDT Clinical Support [facility] CHC MED & PEDS 505 [place] [address] Santa Wade, RN 505 [place] [address] 05/07/2025 9:00 AM EST Office Visit [facility] OPTOMETRY [address] [place] [address] RobinJennifer brunner, OD 230 [place] [address] documented as of this encounter Visit Diagnoses Not on filedocumented in this encounter Additional Health Concerns Assessment Noted Time PHQ-9 Depression Total Score: 19 024 10:43 AM EDT documented as of this encounter Care Teams Gold Leaf Roller Relationship Specialty Start Date End Date Jojo Jaramillo MD [address] [place] [address] PCP - General Family Medicine 12/19/18 documented as of this encounter
--- OUTSIDE RECORDS SUMMARY | 2025-02-12 18:50 | XMS_ITS | Encounter Summary ---
Author Organization [employer] Address [address] [facility] [address] 7t [place] [address] Care Team Providers Care Detective Private Eye Name Role Phone Jojo Jaramillo MD Primary Care Provider [phone] Reason for Visit * Reason Comments [facility] Encounter Details Date Type Department Care Team (Late st Contact Info) Description 02/09/2025 Patient Outreach [facility] MEDICINE [address] [place] [address] Demetrio [facility] Social History Tobacco Use Types Packs/Day Years [...] AM EDT documented as of this encounter Progress Notes * Demetrio Yao - 02/09/2025 2:48 PM EDT I met with Tomy giordano. Setting: in person at [facility] Recovery Wellness Goals worked on: Social Stability Action taken/next steps: Attended alcohol and drug free activity Additional comments: Demetrio Yao documented in this encounter Plan of Treatment Upcoming Encounters Date Type Department Care Team (Late st Contact Info) Description 03/07/2025 9:30 AM EDT Clinical Support [facility] CHC MED & PEDS 505 [place] [address] Santa Wade, RN 505 [place] [address] 05/07/2025 9:00 AM EST Office Visit [facility] OPTOMETRY [address] [place] [address] RobinJennifer brunner, OD 230 [place] [address] documented as of this encounter Visit Diagnoses Not on filedocumented in this encounter Additional Health Concerns Assessment Noted Time PHQ-9 Depression Total Score: 16 025 12:11 PM EDT documented as of this encounter Care Teams Detective Private Eye Relationship Specialty Start Date End Date Jojo Jaramillo MD 230 [place] [address] PCP - General Family Medicine 12/19/18 documented as of this encounter
--- OUTSIDE RECORDS SUMMARY | 2025-02-12 18:50 | XMS_ITS | Encounter Summary ---
Author Organization [employer] Address [address] [facility] [address] 7t [place] [address] Care Team Providers Care Personal Service Workers Name Role Phone Jojo Jaramillo MD Primary Care Provider [phone] Encounter Details Date Type Department Care Team (Late st Contact Info) Description 02/09/2025 Telephone [facility] 230 [place], [place] [phone] Fatemeh Avery [place] Social History Tobacco Use Types Packs/Day Years [...] encounter Miscellaneous Notes * Telephone Encounter - Fatemeh Avery [place] - 02/09/2025 3:10 PM EDT Chart Prep Labs: done Images: ct ordered podiatry 12/21/24 Referrals: podiatry autho//pain medi autho Vaccines due: Covid, Flu, and PCV20 Screenings: not applicable Overdue care gaps: Not applicable documented in this encounter Plan of Treatment Upcoming Encounters Date Type Department Care Team (Late st Contact Info) Description 03/07/2025 9:30 AM EDT Clinical Support [facility] CHC MED & PEDS 505 [place] [address] Santa Wade, RN 505 [place] [address] 05/07/2025 9:00 AM EST Office Visit [facility] OPTOMETRY [address] [place] [address] Jennifer Kelly, OD [address] [facility] [place] [address] documented as of this encounter Visit Diagnoses Not on filedocumented in this encounter Additional Health Concerns Assessment Noted Time PHQ-9 Depression Total Score: 16 02/01/ 025 12:11 PM EDT documented as of this encounter Care Teams Personal Service Workers Relationship Specialty Start Date End Date Jojo Jaramillo MD 230 [place] [address] PCP - General Family Medicine 12/19/18 documented as of this encounter
--- OUTSIDE RECORDS SUMMARY | 2025-02-12 18:50 | XMS_ITS | Encounter Summary ---
Author Organization [employer] Address [address] 7t [place] [address] Care Team Providers Care Professional Nursing Tutor Name Role Phone Jojo Jaramillo MD Primary Care Provider Encounter Details Date Type Department Care Team (Late st Contact Info) Description 10/18/2023 Orders Only [facility] MEDICINE [address] [place], [place] [phone] Jojo Jaramillo MD 230 [place], [place] [phone] Social History Tobacco Use Types Packs/Day Years [...] Description 03/07/2025 9:30 AM EDT Clinical Support [facility] CHC MED & PEDS 505 [place] [address] Santa Wade, RN 505 [place] [address] 05/07/2025 9:00 AM EST Office Visit [facility] OPTOMETRY [address] [place] [address] Robin, Jennifer, OD 230 [place] [address] documented as of this encounter Visit Diagnoses Not on filedocumented in this encounter Additional Health Concerns Assessment Noted Time PHQ-9 Depression Total Score: 5 10/12/19 24 10:50 AM EDT documented as of this encounter Care Teams Professional Nursing Tutor Relationship Specialty Start Date End Date Jojo Jaramillo MD 230 [place] [address] PCP - General Family Medicine 12/19/18 documented as of this encounter
--- OUTSIDE RECORDS SUMMARY | 2025-02-12 18:50 | XMS_ITS | Encounter Summary ---
Author Organization [employer] Address [address] [facility] 7t [place] [address] Care Team Providers Care Mussel Farmer Name Role Phone Jojo Jaramillo MD Primary Care Provider [phone] Reason for Referral * Consultation (Routine) - Closed Specialty Diagnoses / Procedures Referred By Contac t Referred To Contact Physical Therapy Diagnoses Chronic pain of right knee Bilateral leg pain Chronic midline low back pain, unspecified whether sciatica present Arthralgia of both knees Jojo Jaramillo MD 230 [place] [address] Phone: tel: fax: [facility] Physical Therapy [address] [place] [address] Phone: tel: fax: Referral ID Status Reason Start Date Expiration Date V isits Requested Visits Authorized [id number] Closed Specialty Services Required 02/18/2024 02/17/2025 1 1 Encounter Details Date Type Department Care Team (Late st Contact Info) Description 02/18/2024 Orders Only [facility] MEDICINE 230 [place] [address] Jojo Jaramillo MD 230 [place] [address] Chronic pain of right knee (Primary Dx); Bilateral leg pain; Chronic midline low back pain, unspecified whether sciatica present; Arthralgia of both knees Social History Tobacco Use Types Packs/Day Years Used Date Smoking Tobacco: Some Days Cigarettes Smokeless Tobacco: Never Depression Answer Date Recorded Patient Health Questionnaire-9 Score 01/18/2024 Patient Health Questionnaire-9 Score 01/18/2024 Last PHQ-9: Questionnaire Data Not on [...] 9:30 AM EDT Clinical Support [facility] CHC MED & PEDS 505 [place] [address] Santa Wade, DAGOBERTO 505 [place] [address] 05/07/2025 9:00 AM EST Office Visit [facility] OPTOMETRY [address] [place] [address] Jennifer Kelly, OD [address] [place] [address] Scheduled Referrals Name Type Priority Associated Diagnoses [...] documented as of this encounter Care Teams Mussel Farmer Relationship Specialty Start Date End Date Jojo Jaramillo MD 230 [place] [address] PCP - General Family Medicine 12/19/18 documented as of this encounter
--- OUTSIDE RECORDS SUMMARY | 2025-02-12 18:50 | XMS_ITS | Encounter Summary ---
Author Organization [employer] Address [address] [facility] 7t [place] [address] Care Team Providers Care Director Of Corporate Real Estate Name Role Phone Jojo Jaramillo MD Primary Care Provider [phone] Reason for Referral * Consultation (Urgent) - Denied Specialty Diagnoses / Procedures Referred By Contac t Referred To Contact Diagnoses Chronic low back pain with left-sided sciatica, unspecified back pain laterality Sciatica of left side Sprain of left ankle, unspecified ligament, subsequent encounter Anxiety Mood disorder (CMS/HCC) Jojo Jaramillo MD [address] [place] [address] Phone: tel: fax: [address] [address] Phone: tel: fax: Referral ID Status Reason Start Date Expiration Date V isits Requested Visits Authorized [id number] Denied Specialty Services Required 02/02/2025 02/02/2026 1 0 Encounter Details Date Type Department Care Team (Late st Contact Info) Description 02/02/2025 Orders Only [facility] MEDICINE [address] [place] [address] Jojo Jaramillo MD [address] [place] [address] Chronic low back pain with left-sided sciatica, unspecified back pain laterality (Primary Dx); Sciatica of left side; Sprain of left ankle, unspecified ligament, subsequent encounter; Anxiety; Mood disorder (CMS/HCC) Social History Tobacco Use Types Packs/Day Years [...] Description 03/07/2025 9:30 AM EDT Clinical Support [facility] MED & PEDS 505 [place] [address] Santa Wade, RN 505 [place] [address] 05/07/2025 9:00 AM EST Office Visit [facility] OPTOMETRY [address] [place] [address] Jennifer Kelly, OD 230 [place] [address] Scheduled Referrals Name Type Priority Associated Diagnoses Orde r Schedule Referral to Care Management Outpatient Referral Urgent Chronic low back pain with left-sided sciatica, unspecified back pain laterality Sciatica of left side Sprain of left ankle, unspecified ligament, subsequent encounter Anxiety Mood disorder (CMS/HCC) Expected: 02/02/2025 (Approximate), Expires: 02/02/2026 documented as of this encounter Visit Diagnoses Diagnosis Chronic low back pain with left-sided sciatica, unspecified back pain laterality- Primary Sciatica of left side Sprain of left ankle, unspecified ligament, subsequent encounter Anxiety Anxiety state, unspecified Mood disorder (CMS/HCC) Unspecified episodic mood disorder documented in this encounter Additional Health Concerns Assessment Noted Time PHQ-9 Depression Total Score: 16 025 12:11 PM EDT documented as of this encounter Care Teams Director Of Corporate Real Estate Relationship Specialty Start Date End Date Jojo Jaramillo MD 230 [place] [address] PCP - General Family Medicine 12/19/18 documented as of this encounter
--- OUTSIDE RECORDS SUMMARY | 2025-02-12 18:50 | XMS_ITS | Encounter Summary ---
Author Organization [employer] Address [address] [facility] 7t [place] [address] Care Team Providers Care Television Actor Name Role Phone Jojo Jaramillo MD Primary Care Provider [phone] Reason for Visit * Reason Comments Med Refill Encounter Details Date Type Department Care Team (Late st Contact Info) Description 06/24/2023 Refill [facility] MEDICINE 230 [place], [place] [phone] Name, MD Gabe 230 [place], [place] [phone] Social History Tobacco Use Types Packs/Day Years [...] Description 03/07/2025 9:30 AM EDT Clinical Support [facility] CHC MED & PEDS 505 [place] [address] Santa Wade, DAGOBERTO 505 [place] [address] 05/07/2025 9:00 AM EST Office Visit [facility] OPTOMETRY [address] [place] [address] Jennifer Kelly, OD 230 [place] [address] documented as of this encounter Visit Diagnoses Not on filedocumented in this encounter Additional Health Concerns Assessment Noted Time PHQ-9 Depression Total Score: 5 08/27/19 23 9:15 AM EDT documented as of this encounter Care Teams Television Actor Relationship Specialty Start Date End Date Jojo Jaramillo MD 230 [place] [address] PCP - General Family Medicine 12/19/18 documented as of this encounter
--- OUTSIDE RECORDS SUMMARY | 2025-02-12 18:50 | XMS_ITS | Encounter Summary ---
Author Organization [employer] Address [address] [facility] 7t [place] [address] Care Team Providers Care Neurological Physiotherapist Name Role Phone Jojo Jaramillo MD Primary Care Provider [phone] Reason for Visit * Reason Onset Date Comments Appointment Request 11/13/2024 Encounter Details Date Type Department Care Team ([facility] st Contact Info) Description 11/13/2024 Telephone [facility] MEDICINE 230 [place], [place] [phone] Jojo Jaramillo MD 230 [place], [place] [phone] Appointment Request Social History Tobacco Use Types [...] encounter Miscellaneous Notes * Telephone Encounter - Larry Washington - 11/13/2024 1:38 PM EDT TC from pt requesting to be scheduled with Santa for VARITYPIST visit documented in this encounter Plan of Treatment Upcoming Encounters Date Type Department Care Team (Late st Contact Info) Description 03/07/2025 9:30 AM EDT Clinical Support [facility] CHC MED & PEDS 505 [place] [address] Santa Wade, RN 505 [place] [address] 05/07/2025 9:00 AM EST Office Visit [facility] OPTOMETRY [address] [place] [address] Jennifer Kelly, OD [address] [place] [address] documented as of this encounter Visit Diagnoses Not on filedocumented in this encounter Additional Health Concerns Assessment Noted Time PHQ-9 Depression Total Score: 5 04/16/20 24 7:02 AM EST documented as of this encounter Care Teams Neurological Physiotherapist Relationship Specialty Start Date End Date Jojo Jaramillo MD 230 [place] [address] PCP - General Family Medicine 12/19/18 documented as of this encounter
--- OUTSIDE RECORDS SUMMARY | 2025-02-12 18:50 | XMS_ITS | Encounter Summary ---
Author Organization [employer] Address [address] [facility] 7t [place] [address] Care Team Providers Care Dentist Name Role Phone Jojo Jaramillo MD Primary Care Provider [phone] Encounter Details Date Type Department Care Team (Late st Contact Info) Description 04/21/2023 Orders Only [facility] MEDICINE 230 [place], [place] [phone] Jojo Jaramillo MD 230 [place] [address] Psoriasis (Primary Dx); Psoriasiform dermatitis Social History [...] Description 03/07/2025 9:30 AM EDT Clinical Support [facility] CHC MED & PEDS 505 [place] [address] Santa Wade, RN 505 [place] [address] 05/07/2025 9:00 AM EST Office Visit [facility] OPTOMETRY [address] [place] [address] Jennifer Kelly, OD 230 [place] [address] documented as of this encounter Visit Diagnoses Diagnosis Psoriasis- Primary Other psoriasis Psoriasiform dermatitis Other psoriasis and similar disorders documented in this encounter Additional Health Concerns Assessment Noted Time PHQ-9 Depression Total Score: 5 08/27/19 23 9:15 AM EDT documented as of this encounter Care Teams Dentist Relationship Specialty Start Date End Date Jojo Jaramillo MD 230 [place] [address] PCP - General Family Medicine 12/19/18 documented as of this encounter
--- OUTSIDE RECORDS SUMMARY | 2025-02-12 18:50 | XMS_ITS | Encounter Summary ---
Author Organization [employer] Address [address] [facility] [address] 7t [place] [address] Care Team Providers Care Project Superintendent Name Role Phone Jojo Jaramillo MD Primary Care Provider [phone] Encounter Details Date Type Department Care Team (Late st Contact Info) Description 02/08/2025 Telephone [facility] MEDICINE 230 [place] [address] Analilia Varghese RN Social History Tobacco Use Types Packs/Day Years [...] encounter Miscellaneous Notes * Telephone Encounter - Analilia Varghese RN - 02/08/2025 10:43 AM EDT Telephone call received from Tomy. He said he received a phone call from an office on [facility] in [place] about an appointment, but he is unsure what it is about. He is requesting assistance in navigating this. Equipment Maintenance Supervisor also let him know that his PT-1 transportation has been approved for [facility], [facility] and [facility] ([facility]). Demetrio Yao, Automation And Controls Manager is to inform him of transportation arrangements that have been made by Mila Eli ([facility]) on his behalf for two upcoming appts at [facility]: 02/12/25 at 12:15 with p/u time between 11 and 11:30 (confirmation # [id number]) and 03/01 at 11:15 with p/u time between 10:30 and 11:15 (confirmation # [id number]). Equipment Maintenance Supervisor will follow up further re: [facility] office and call him back with more information. documented in this encounter Plan of Treatment Upcoming Encounters Date Type Department Care Team ([facility] st Contact Info) Description 03/07/2025 9:30 AM EDT Clinical Support [facility] MED & PEDS 505 [place] [address] Santa Wade RN [address] [place] [address] 05/07/2025 9:00 AM EST Office Visit [facility] OPTOMETRY [address] [place], [place] [phone] Jennifer Kelly, KATHI 230 [place] [address] documented as of this encounter Visit Diagnoses Not on filedocumented in this encounter Additional Health Concerns Assessment Noted Time PHQ-9 Depression Total Score: 16 025 12:11 PM EDT documented as of this encounter Care Teams Project Superintendent Relationship Specialty Start Date End Date Jojo Jaramillo MD 230 [place], [place] [phone] PCP - General Family Medicine 12/19/18 documented as of this encounter
--- OUTSIDE RECORDS SUMMARY | 2025-02-12 18:50 | XMS_ITS | Encounter Summary ---
Author Organization [employer] Address [address] [facility] 7t [place] [address] Care Team Providers Care Senior Technical Manager Name Role Phone Jojo Jaramillo MD Primary Care Provider [phone] Reason for Referral * Consultation (Urgent) - Closed Specialty Diagnoses / Procedures Referred By Contac t Referred To Contact Physical Therapy Diagnoses Chronic low back pain, unspecified back pain laterality, unspecified whether sciatica present Jojo Jaramillo MD [address] [place] [address] Phone: tel: fax: Physical Therapy, [facility] [address] Phone: tel: fax: Referral ID Status Reason Start Date Expiration Date V isits Requested Visits Authorized [id number] Closed Specialty Services Required 03/02/2024 03/02/2025 1 1 Scheduling Instructions Patient would like to have PT at [facility] because the other PT has copays. Encounter Details Date Type Department Care Team (Late st Contact Info) Description 02/24/2024 Orders Only [facility] MEDICINE [address] [place] [phone] Jojo Jaramillo MD [address] [place] [address] Chronic low back pain, unspecified back pain [...] Description 03/07/2025 9:30 AM EDT Clinical Support [facility] CHC MED & PEDS 505 [place] [address] Santa Wade, DAGOBERTO 505 [place] [address] 05/07/2025 9:00 AM EST Office Visit [facility] OPTOMETRY [address] [place], [place] [phone] Jennifer Kelly, OD [address] [place] [address] Scheduled Referrals Name Type Priority Associated Diagnoses [...] documented as of this encounter Care Teams Senior Technical Manager Relationship Specialty Start Date End Date Jojo Jaramillo MD 230 [place] [address] PCP - General Family Medicine 12/19/18 documented as of this encounter
--- OUTSIDE RECORDS SUMMARY | 2025-02-12 18:50 | XMS_ITS | Encounter Summary ---
Author Organization [employer] Address [address] [facility] [address] 7t [place] [address] Care Team Providers Care Healthcare Risk Control Consultant Name Role Phone Jojo Jaramillo MD Primary Care Provider [phone] Reason for Visit * Reason Comments [facility] Recovery Supports Encounter Details Date Type Department Care Team (Late st Contact Info) Description 02/08/2025 Patient Outreach [facility] MEDICINE 230 [place] [address] Demetrio Yao Recovery Supports Social History Tobacco [...] encounter Progress Notes * Demetrio Yao - 02/08/2025 2:56 PM EDT I met with Tomy giordano. Setting: in person at [facility] Recovery Wellness Goals worked on: Social Stability Action taken/next steps: Offered person centered recovery support Additional comments: Demetrio Yao documented in this encounter Plan of Treatment Upcoming Encounters Date Type Department Care Team (Late st Contact Info) Description 03/07/2025 9:30 AM EDT Clinical Support [facility] CHC MED & PEDS 505 [place] [address] Santa Wade, RN 505 [place] [address] 05/07/2025 9:00 AM EST Office Visit [facility] OPTOMETRY [address] [place] [address] Jennifer Kelly, OD 230 [place] [address] documented as of this encounter Visit Diagnoses Not on filedocumented in this encounter Additional Health Concerns Assessment Noted Time PHQ-9 Depression Total Score: 16 025 12:11 PM EDT documented as of this encounter Care Teams Healthcare Risk Control Consultant Relationship Specialty Start Date End Date Jojo Jaramillo MD 230 [place] [address] PCP - General Family Medicine 12/19/18 documented as of this encounter
--- OUTSIDE RECORDS SUMMARY | 2025-02-12 18:50 | XMS_ITS | Encounter Summary ---
Author Organization [employer] Address [address] [facility] [address] 7t [place] [address] Care Team Providers Care Contract Associate Name Role Phone Jojo Jaramillo MD Primary Care Provider [phone] Encounter Details Date Type Department Care Team (Late st Contact Info) Description 12/22/2024 Orders Only [facility] MEDICINE 230 [place], [place] [phone] Jojo Jaramillo MD 230 [place], [place] [phone] Social History Tobacco Use Types Packs/Day Years [...] 9:30 AM EDT Clinical Support [facility] CHC MED & PEDS 505 [place] [address] Santa Wade, DAGOBERTO 505 [place] [address] 05/07/2025 9:00 AM EST Office Visit [facility] OPTOMETRY [address] [place] [address] Robin, Jennifer, OD 230 [place] [address] documented as of this encounter Visit Diagnoses Not on filedocumented in this encounter Additional Health Concerns Assessment Noted Time PHQ-9 Depression Total Score: 16 025 1:34 PM EDT documented as of this encounter Care Teams Contract Associate Relationship Specialty Start Date End Date Jojo Jaramillo MD 230 [place] [address] PCP - General Family Medicine 12/19/18 documented as of this encounter
--- OUTSIDE RECORDS SUMMARY | 2025-02-12 18:50 | XMS_ITS | Encounter Summary ---
Author Organization [employer] Address [address] [facility] [address] 7t [place] [address] Care Team Providers Care Senior Biostatistician Name Role Phone Jojo Jaramillo MD Primary Care Provider [phone] Encounter Details Date Type Department Care Team (Late st Contact Info) Description 02/02/2025 Telephone [facility] MEDICINE 230 [place], [place] [phone] Jojo Jaramillo MD 230 [place], [place] [phone] Social History Tobacco Use Types Packs/Day Years [...] Telephone Encounter - Jojo Jaramillo MD - 02/02/2025 12:28 PM EDT Spoke with the patient about his pain. Patient states he is still in severe pain and has a difficulty moving. When asked about Butran patch, he states it was not approved by insurance. When asked about appointment dates with [facility] provider, he initially stated Feb 13. However, our record shows Feb 12 at 12:15 pm. He has appointment with PCP on Feb 12 at 3 pm. He states he may not have enough time to come from [facility] to PCP appointment as he cannot walk fast. When advised to call the office, he states he cannot find the referral letter because he left in the car. He sounded very overwhelmed by the task. Referred to care management team to support him develop skills to organize medical appointments, and assess his needs. Will check PA for Butran patch. documented in this encounter Plan of Treatment Upcoming Encounters Date Type Department Care Team ([facility] st Contact Info) Description 03/07/2025 9:30 AM EDT Clinical Support [facility] MED & PEDS 505 [place] [address] Santa Wade, RN 505 [place] [address] 05/07/2025 9:00 AM EST Office Visit [facility] OPTOMETRY [address] [place] [address] Jennifer Kelly, OD 230 [place] [address] documented as of this encounter Visit Diagnoses Not on filedocumented in this encounter Additional Health Concerns Assessment Noted Time PHQ-9 Depression Total Score: 16 025 12:11 PM EDT documented as of this encounter Care Teams Senior Biostatistician Relationship Specialty Start Date End Date Jojo Jaramillo MD 230 [place] [address] PCP - General Family Medicine 12/19/18 documented as of this encounter
--- OUTSIDE RECORDS SUMMARY | 2025-02-12 18:50 | XMS_ITS | Encounter Summary ---
Author Organization [employer] Address [address] [facility] [address] 7t [place] [address] Care Team Providers Care Plastic Shaper Name Role Phone Jojo Jaramillo MD Primary Care Provider [phone] Encounter Details Date Type Department Care Team (Late st Contact Info) Description 02/08/2025 Telephone [facility] MEDICINE 230 [place] [address] Analilia Varghese RN Social History Tobacco Use [...] Encounter - Analilia Varghese RN - 02/08/2025 10:58 AM EDT Pt chart reviewed. A referral had been sent to Dr. Smith, [facility] on [address] [place] [address] in [place]. Pace Analyst contacted their office and was informed that they had received the referral marked as urgent and contacted Tomy who accepted an appt today at 3:15 if he could find transportation. Pace Analyst spoke with Mila AJ who is arranging transportation for Tomy via [employer] with a note that he has a wheelchair. An [employer] was arranged for 2:00 to 2:15 order picker/assembler. Tomy was informed of this. documented in this encounter Plan of Treatment Upcoming Encounters Date Type Department Care Team (Late st Contact Info) Description 03/07/2025 9:30 AM EDT Clinical Support [facility] CHC MED & PEDS 505 [place] [address] Santa Wade, RN 505 [place] [address] 05/07/2025 9:00 AM EST Office Visit [facility] OPTOMETRY [address] [place] [address] Jennifer Kelly, OD [address] [place] [address] documented as of this encounter Visit Diagnoses Not on filedocumented in this encounter Additional Health Concerns Assessment Noted Time PHQ-9 Depression Total Score: 16 02/01/ 025 12:11 PM EDT documented as of this encounter Care Teams Plastic Shaper Relationship Specialty Start Date End Date Jojo Jaramillo MD 230 [place] [address] PCP - General Family Medicine 12/19/18 documented as of this encounter
--- OUTSIDE RECORDS SUMMARY | 2025-02-12 18:50 | XMS_ITS | Encounter Summary ---
Author Organization [employer] Address [address] [facility] 7t [place] [address] Care Team Providers Care Radio Talk Show Host Name Role Phone Jojo Jaramillo MD Primary Care Provider [phone] Reason for Visit * Reason Comments Med Refill Encounter Details Date Type Department Care Team (Late st Contact Info) Description 12/28/2024 Refill [facility] [address] [place], [place] [phone] Jojo Jaramillo MD [address] [place], [place] [phone] Closed fracture dislocation of lumbar spine, initial encounter ([facility]) Social History Tobacco Use Types Packs/Day Years [...] [facility] [address] [place] [address] Santa Wade, RN [address] [place] [address] 05/07/2025 9:00 AM EST Office Visit [facility] OPTOMETRY [address] [place] [address] Robin, Jennifer, OD 230 [place] [address] documented as of this encounter Visit Diagnoses Diagnosis Closed fracture dislocation of lumbar spine, initial encounter ([facility]) documented in this encounter Additional Health Concerns Assessment Noted Time PHQ-9 Depression Total Score: 16 025 1:34 PM EDT documented as of this encounter Care Teams Radio Talk Show Host Relationship Specialty Start Date End Date Jojo Jaramillo MD 230 [place] [address] PCP - General Family Medicine 12/19/18 documented as of this encounter
--- OUTSIDE RECORDS SUMMARY | 2025-02-12 18:51 | XMS_ITS | Encounter Summary ---
Author Organization [employer] Address [address] [facility] [address] 7[address] [place] [address] Care Team Providers Care Landscape Architecture Professor Name Role Phone Jojo Jaramillo MD Primary Care Provider [phone] Encounter Details Date Type Department Care Team (Late st Contact Info) Description 02/09/2025 Orders Only [facility] MEDICINE [address] [place], [place] [phone] Jojo Jaramillo MD 230 [place], [place] [phone] Sciatica of left side Social History Tobacco [...] 03/07/2025 9:30 AM EDT Clinical Support [facility] MED & PEDS [address] [place] [address] Santa Wade, DAGOBERTO 505 [place] [address] 05/07/2025 9:00 AM EST Office Visit [facility] OPTOMETRY [address] [place] [address] Robin, Jennifer, OD 230 [place] [address] documented as of this encounter Visit Diagnoses Diagnosis Sciatica of left side documented in this encounter Additional Health Concerns Assessment Noted Time PHQ-9 Depression Total Score: 16 025 12:11 PM EDT documented as of this encounter Care Teams Landscape Architecture Professor Relationship Specialty Start Date End Date Jojo Jaramillo MD [address] [place] [address] PCP - General Family Medicine 12/19/18 documented as of this encounter
--- OUTSIDE RECORDS SUMMARY | 2025-02-12 18:51 | XMS_ITS | Encounter Summary ---
Author Organization [email or web address] Address [address] [facility] 7t [place] [address] Care Team Providers Care Packer Inspector Name Role Phone Jojo Jaramillo MD Primary Care Provider [phone] Encounter Details Date Type Department Care Team (Late st Contact Info) Description 12/17/2022 Abstract [facility] MEDICINE [address] [place], [place] [phone] Jojo Jaramillo MD [address] [place] [address] Social History Tobacco Use Types Packs/Day Years [...] 9:30 AM EDT Clinical Support [facility] MED & PEDS [address] [place] [address] Santa Wade, DAGOBERTO 505 [place] [address] 05/07/2025 9:00 AM EST Office Visit [facility] OPTOMETRY [address] [place] [address] Jennifer Kelly, OD 230 [place] [address] documented as of this encounter Procedures Procedure Name Priority Date/Time Associated Diagnosis Comments COLONOSCOPY Routine 03/03/2022 documented in this encounter Results * Hm Colonoscopy (03/03/2022) Colonoscopy Normal Normal 03/03/2022 [facility] Unassigned Pcp HEALTH MAINTENANCE Edited Result - Final documented in this encounter Visit Diagnoses Not on filedocumented in this encounter Additional Health Concerns Assessment Noted Time PHQ-9 Depression Total Score: 5 08/27/19 23 9:15 AM EDT documented as of this encounter Care Teams Packer Inspector Relationship Specialty Start Date End Date Jojo Jaramillo MD [address] [place] [address] PCP - General Family Medicine 12/19/18 documented as of this encounter
--- OUTSIDE RECORDS SUMMARY | 2025-02-12 18:51 | XMS_ITS | Encounter Summary ---
Author Organization [employer] Address [address] [facility] [address] 7[address] [place] [address] Care Team Providers Care Estimator Name Role Phone Jojo Jaramillo MD Primary Care Provider Encounter Details Date Type Department Care Team (Late st Contact Info) Description 11/29/2024 Orders Only [facility]INE [address] [place], [place] [phone] Jojo Jaramillo MD [address] [place], [place] [phone] Social History Tobacco Use Types Packs/Day Years [...] 03/07/2025 9:30 AM EDT Clinical Support [facility] MED & PEDS [address] [place] [address] Santa Wade, DAGOBERTO 505 [place] [address] 05/07/2025 9:00 AM EST Office Visit [facility] OPTOMETRY [address] [place] [address] Robin, Jennifer, OD 230 [place] [address] documented as of this encounter Visit Diagnoses Not on filedocumented in this encounter Additional Health Concerns Assessment Noted Time PHQ-9 Depression Total Score: 5 04/16/20 24 7:02 AM EST documented as of this encounter Care Teams Estimator Relationship Specialty Start Date End Date Jojo Jaramillo MD [address] [place] [address] PCP - General Family Medicine 12/19/18 documented as of this encounter
--- OUTSIDE RECORDS SUMMARY | 2025-02-12 18:51 | XMS_ITS | Encounter Summary ---
Author Organization [employer] Address [address] [facility] 7t [place] [address] Care Team Providers Care Forestry Supervisor Name Role Phone Jojo Jaramillo MD Primary Care Provider [phone] Encounter Details Date Type Department Care Team (Late Contact Info) Description 08/20/2022 Orders Only [facility] MED & PEDS [address] [place] [address] Aline Echevarria LPN Social History Tobacco Use [...] Department Care Team (Late Contact Info) Description 03/07/2025 9:30 AM EDT Clinical Support [facility] MED [facility] PED[facility] [address] [place] [address] Santa Wade, RN [address] [place] [address] 05/07/2025 9:00 AM EST Office Visit [facility] OPTOMETRY [address] [place] [address] Jennifer Kelly, OD [address] [place] [address] documented as of this encounter Visit Diagnoses Not on filedocumented in this encounter Care Teams Forestry Supervisor Relationship Specialty Start Date End Date Jojo Jaramillo MD 230 [place] [address] PCP - General Family Medicine 12/19/18 documented as of this encounter
--- OUTSIDE RECORDS SUMMARY | 2025-02-12 18:51 | XMS_ITS | Encounter Summary ---
Author Organization [employer] Address [address] [facility] 7t [place] [address] Care Team Providers Care Drafter Castings Name Role Phone Jojo Jaramillo MD Primary Care Provider [phone] Reason for Referral * Consultation (Urgent) - Closed Specialty Diagnoses / Procedures Referred By Contac t Referred To Contact Diagnoses Chronic low back pain, unspecified back pain laterality, unspecified whether sciatica present Bilateral leg pain Lumbar spondylosis Jojo Jaramillo MD [address] [place] [phone] Phone: tel: fax: [facility] Referral ID Status Reason Start Date Expiration Date V isits Requested Visits Authorized [id number] Closed Specialty Services Required 08/09/2024 08/09/2025 1 1 Encounter Details Date Type Department Care Team ([facility] st Contact Info) Description 08/09/2024 Orders Only [facility] MEDICINE [address] [place] [address] Jojo Jaramillo MD [address] [place] [address] Chronic low back pain, unspecified back [...] Description 03/07/2025 9:30 AM EDT Clinical Support [facility] MED & PEDS [address] [place] [address] Santa Wade, DAGOBERTO 505 [place] [address] 05/07/2025 9:00 AM EST Office Visit [facility] OPTOMETRY [address] [place] [address] Jennifer Kelly, OD [address] [place] [address] Scheduled Referrals Name Type Priority Associated Diagnoses [...] documented as of this encounter Care Teams Drafter Castings Relationship Specialty Start Date End Date Jojo Jaramillo MD [address] [place] [id number] PCP - General Family Medicine 12/19/18 documented as of this encounter
--- OUTSIDE RECORDS SUMMARY | 2025-02-12 18:51 | XMS_ITS | Encounter Summary ---
Author Organization [employer] Address [address] [facility] 7t [place] [address] Care Team Providers Care Semiconductor Equipment Technician Name Role Phone Jojo Jaramillo MD Primary Care Provider [phone] Reason for Visit * Reason Onset Date Comments Care Coordination 02/09/2025 PT1 Encounter Details Date Type Department Care Team (Late st Contact Info) Description 02/09/2025 Telephone C [facility] MED [facility]S [address] [place], [place] [phone] Jojo Jaramillo MD [address] [place] [address] Care Coordination (PT1) Social History Tobacco Use Types Packs/Day Years [...] encounter Miscellaneous Notes * Telephone Encounter - Dee Perla - 02/09/2025 2:37 PM EDT CHW Dee Perla, placed outbound call to patient in regards to offer services. CHW introducing herself from [facility] CM Department with CHW's name, department and direct contact number requesting call back documented in this encounter Plan of Treatment Upcoming Encounters Date Type Department Care Team ([facility] st Contact Info) Description 03/07/2025 9:30 AM EDT Clinical Support [facility] CHC MED & PEDS [address] [place] [address] Santa Wade, RN 505 [place] [address] 05/07/2025 9:00 AM EST Office Visit [facility] OPTOMETRY [address] [place] [address] Jennifer Kelly, OD [address] [place] [address] documented as of this encounter Visit Diagnoses Not on filedocumented in this encounter Additional Health Concerns Assessment Noted Time PHQ-9 Depression Total Score: 16 02/01/ 025 12:11 PM EDT documented as of this encounter Care Teams Semiconductor Equipment Technician Relationship Specialty Start Date End Date Jojo Jaramillo MD [address] [place] [address] PCP - General Family Medicine 12/19/18 documented as of this encounter
--- OUTSIDE RECORDS SUMMARY | 2025-02-12 18:51 | XMS_ITS | Encounter Summary ---
Author Organization [employer] Address [address] [facility] 7t [place] [address] Care Team Providers Care Flange Turner Name Role Phone Jjoo Jaramillo MD Primary Care Provider [phone] Encounter Details Date Type Department Care Team (Late st Contact Info) Description 12/19/2024 Orders Only [facility] MEDICINE [address] [place], [place] [phone] Jojo Jaramillo MD [address] [place], [place] [phone] Pain and swelling of toe of left foot (Primary Dx) Social History Tobacco Use Types [...] Description 03/07/2025 9:30 AM EDT Clinical Support [facility] CHC MED & PEDS [address] [place] [address] Santa Wade, RN [address] [place] [address] 05/07/2025 9:00 AM EST Office Visit [facility] OPTOMETRY [address] [place] [address] Robin, Jennifer, OD [address] [place] [address] documented as of this encounter Visit Diagnoses Diagnosis Pain and swelling of toe of left foot- Primary documented in this encounter Additional Health Concerns Assessment Noted Time PHQ-9 Depression Total Score: 16 025 1:34 PM EDT documented as of this encounter Care Teams Flange Turner Relationship Specialty Start Date End Date Jojo Jaramillo MD [address] [place] [address] PCP - General Family Medicine 12/19/18 documented as of this encounter
--- OUTSIDE RECORDS SUMMARY | 2025-02-12 18:51 | XMS_ITS | Clinical Summary ---
Author Organization [facility] Address [address] [place] [address] Phone Care Team Providers Care Laundry Aide Name Role Phone Jojo Jaramillo MD Primary Care Provider [phone] Allergies No known active allergies Medications atorvastatin (LIPITOR) 40 mg tablet Take 1 tablet (40 mg total) by mouth daily. 01/17/2025 Active celecoxib (CeleBREX) 100 mg capsule Take 1 capsule (100 mg total) by mouth 2 times daily. 01/17/2025 Active clonazePAM (KlonoPIN) 1 mg tablet Take 1 tablet (1 mg total) by mouth 3 times daily. Max Daily Amount: 3 mg 01/16/2025 Active escitalopram (LEXAPRO) 20 mg tablet Take 1 tablet (20 mg total) by mouth 1 (one) time each day. Active lisinopriL (PRINIVIL,ZESTR IL) 20 mg tablet Take 1 tablet (20 mg total) by mouth 1 (one) time each day in the morning. 08/17/2024 Active gabapentin (NEURONTIN) 300 mg capsule Take 1 capsule (300 mg total) by mouth 3 (three) times a day. 270 each 3 02/08/2025 Active Active Problems No known active problems Encounters Date Type Department Care Team Description 02/08/2025 3:15 PM EDT Consult Orthopedic Surgery [facility] [address] [facility] [address] [place] [phone] Kenneth Cameron DPM Controlled type 2 diabetes with neuropathy (CMS/HCC V24, CMS/HCC V28) (Primary Dx); Non-pressure chronic ulcer of other part of left foot limited to breakdown of skin (CMS/HCC V24, CMS/[facility] V28); Lumbosacral radiculopathy; Complex regional pain syndrome type 1 of left lower extremity; Contusion of left foot, initial encounter 01/30/2025 7:12 AM EDT - 01/30/2025 1:19 PM EDT Emergency [facility] Emergency [address] [place] [phone] Sciatica of left side (Primary Dx); Pain; Controlled type 2 diabetes mellitus without complication, unspecified whether half-way insulin use ([facility] V24, [facility] V28) Discharge Disposition: Home or Self Care 12/19/2024 3:30 PM EDT - 12/19/2024 11:59 PM EDT Hospital Encounter [facility] Ultrasound [address] [place] [phone] Pain; Swelling Discharge Disposition: Home or Self Care from Last 3 Months Social History Tobacco Use Types Packs/Day Years Used Date Smoking Tobacco: Never Assessed Sex and Gender Information Value Date Recorded Sex Assigned at Not on file Legal Sex Male 1:47 PM EDT Gender Identity Not on file Sexual Orientation Not on file Obstetrics History Last Filed Vital Signs Vital Sign Reading Time Taken Comments Blood Pressure 147/83 01/30/2025 12:21 PM EDT Pulse 77 01/30/2025 12:21 PM EDT Temperature 37.2 C (99 F) 01/30/2025 12:21 PM EDT Respiratory Rate 18 01/30/2025 12:21 PM EDT Oxygen Saturation 100% 01/30/2025 12:21 PM EDT Inhaled Oxygen Concentration - - Weight 83.9 kg (185 lb) 01/29/2025 11:13 PM EDT Height 172.7 cm (5' 8 ) 01/29/2025 11:13 PM EDT Body Mass Index 28.13 01/29/2025 11:13 PM EDT Plan of Treatment Upcoming Encounters Date Type Department Care Team (Late st Contact Info) Description 03/22/2025 9:00 AM EDT Office Visit Orthopedic Surgery - [place] [address] [phone] Kenneth Cameron DPM [address] [address] Health Maintenance Due Date Last Done Comments Diabetes: Annual Retina Eye Exam 12/10/1985 Pneumococcal Vaccine: Pediatrics (0 to 5 Years) and At-Risk Patients (6 to 49 Years) (2 of 2 - PCV) 10/21/2013 10/21/2012 Depression Screening 06/07/2024 Cholesterol Screening (Lipid Panel) 12/20/2024 Colorectal Cancer Screening: Colonoscopy 12/20/2024 Diabetes: Annual Urine Albumin-Creatinine Ratio (uACR) 12/20/2024 Social Influencers of Health Screening 12/20/2024 COVID-19 Vaccine ( season) 2025 Influenza Vaccine (#1) 2025 , 03/13/2020, 02/15/2019, Additional history exists Diabetes: Blood Sugar Control Test (HGBA1C) 06/09/2025 12/07/2024 Diabetes: Annual Foot Exam 01/29/202601/29, 01/29/2025, 01/29/2025 Diabetes: Annual GFR (Glomerular Filtration Rate) 01/30/2026 01/30/2025, 11/30/2024, 11/26/2024 Hypertension/CHF/CAD Annual BMP Blood Test 01/30/2026 01/30/2025, 11/30/2024, 11/26/2024 DTaP,Tdap,and Td Vaccines (4 - [...] Procedure Name Priority Date/Time Associated Diagnosis Comments ECG ANNOTATED 01/31/2025 D-DIMER STAT 01/30/2025 10:55 AM EDT XR FOOT 3+ VIEWS LEFT STAT 01/30/2025 10:04 AM EDT VAS US DUPLEX LOWER EXT VENOUS LEFT STAT 01/30/2025 9:49 AM EDT Pain ECG 12-LEAD STAT 01/30/2025 9:14 AM EDT CULTURE BLOOD STAT 01/30/2025 7:45 AM EDT CBC WITH AUTO DIFFERENTIAL STAT 01/30/2025 7:33 AM EDT LACTATE, WITH REFLEX STAT 01/30/2025 7:33 AM EDT BASIC METABOLIC PANEL STAT 01/30/2025 7:33 AM EDT CBC AND DIFFERENTIAL STAT 01/30/2025 7:33 AM EDT CULTURE BLOOD STAT 01/30/2025 7:33 AM EDT VAS US DUPLEX LOWER EXT VENOUS LEFT Routine 12/19/2024 3:59 PM EDT Pain Swelling from Last 3 Months Results * ECG-Annotated (01/31/2025) us Provider Onbase MD ECG ORDERABLES Final Result * (ABNORMAL) D-Dimer (Quantitative) (01/30/2025 10:55 AM EDT) D-Dimer, Quant (D-DU) 346(H) <=230 ng/mL DDU LAB COAGULATION METHOD 01/30/2025 11:45 AM EDT [facility] Blood Venous blood specimen / Unknown Venipuncture / Unknown 01/30/2025 10:55 AM EDT 01/30/2025 11:30 AM EDT Narrative [facility] - 01/30/2025 11:45 AM EDT D-Dimer <230 ng/mL (D-Dimer units) is the threshold for exclusion of DVT/PE. D-Dimer may be elevated in: Critically ill, severely infected, trauma patients, DIC, acute CVA, acute ME, unstable angina, AF, old age, , and smoking. D-Dimer may be decreased with: Initiation of heparin therapy and oral anticoagulants. us Phil HERNANDEZ LAB BLOOD ORDERABLES Final Result [facility] [address] [place] [address], [place] [phone] * XR Foot 3+ Views Left (01/30/2025 10:04 AM EDT) Anatomical Region Laterality Modality Lower Extremities, Foot Left Radiogra phic Imaging 01/30/2025 10:3 4 AM EDT Impressions 01/30/2025 10:36 AM EDT FINDINGS/IMPRESSION: No acute fracture or dislocation. Mild degenerative changes at the 1st metatarsophalangeal joint. No focal soft tissue swelling. -------- FINAL REPORT -------- Dictated By: VIKTORIA BAL Dictated Date: 01/30/2025 10:34 ET Assigned Physician: VIKTORIA BAL Reviewed and Electronically Signed By: VIKTORIA BAL Signed Date: 01/30/2025 10:36 ET Workstation ID: [id number] Transcribed By: Self Edit Transcribed Date: 01/30/2025 10:34 ET Narrative 01/30/2025 10:36 AM EDT XR FOOT 3+ VIEWS LEFT INDICATION: Pain TECHNIQUE: XR FOOT 3+ VIEWS LEFT COMPARISON: No priors available. Procedure Note Viktoria Bal MD - 01/30/2025 XR FOOT 3+ VIEWS LEFT INDICATION: Pain TECHNIQUE: XR FOOT 3+ VIEWS LEFT COMPARISON: No priors available. IMPRESSION: FINDINGS/IMPRESSION: No acute fracture or dislocation. Mild degenerativechanges at the 1st metatarsophalangeal joint. No focal soft tissueswelling. -------- FINAL REPORT -------- Dictated By: VIKTORIA BAL Dictated Date: 01/30/2025 10:34 ET Assigned Physician: VIKTORIA BAL Reviewed and Electronically Signed By: VIKTORIA BAL Signed Date: 01/30/2025 10:36 ET Workstation ID: [id number] Transcribed By: Self Edit Transcribed Date: 01/30/2025 10:34 ET us Phil HERNANDEZ IMG XR PROCEDURES Final Res ult * Vascular US Duplex Lower Extremity Venous Left (01/30/2025 9:49 AM EDT) Only the most recent of2 resultswithin the time period is included. Anatomical Region Laterality Modality Vascular, Abdomen Ultrasound 01/30/2025 10:2 4 AM EDT Impressions 01/30/2025 10:25 AM EDT NO LEFT LOWER EXTREMITY DEEP VENOUS THROMBOSIS. -------- FINAL REPORT -------- Dictated By: VIKTORIA BAL Dictated Date: 01/30/2025 10:24 ET Assigned Physician: VIKTORIA BAL Reviewed and Electronically Signed By: VIKTORIA BAL Signed Date: 01/30/2025 10:25 ET Workstation ID: [id number] Transcribed By: Self Edit Transcribed Date: 01/30/2025 10:24 ET Narrative 01/30/2025 10:25 AM EDT PROCEDURE: VAS US DUPLEX LOWER EXT VENOUS LEFT INDICATION: Pain TECHNIQUE: 2-D and color Doppler imaging of the left lower extremity venous vasculature with compression and augmentation maneuvers. COMPARISON: No priors available. FINDINGS: There is normal flow, compression, and augmentation from the common femoral through the popliteal vein. Visualized calf veins are patent Procedure Note Viktoria Bal MD - 01/30/2025 PROCEDURE: VAS US DUPLEX LOWER EXT VENOUS LEFT INDICATION: Pain TECHNIQUE: 2-D and color Doppler imaging of the left lower extremityvenous vasculature with compression and augmentation maneuvers. COMPARISON: No priors available. FINDINGS: There is normal flow, compression, and augmentation from the commonfemoral through the popliteal vein. Visualized calf veins are patent IMPRESSION: NO LEFT LOWER EXTREMITY DEEP VENOUS THROMBOSIS. -------- FINAL REPORT -------- Dictated By: VIKTORIA BAL Dictated Date: 01/30/2025 10:24 ET Assigned Physician: VIKTORIA BAL Reviewed and Electronically Signed By: VIKTORIA BAL Signed Date: 01/30/2025 10:25 ET Workstation ID: [id number] Transcribed By: Self Edit Transcribed Date: 01/30/2025 10:24 ET Phil HERNANDEZ CV VASCULAR PROCEDURES Ioana l Result * ECG 12 lead (01/30/2025 9:14 AM EDT) Ventricular Rate ECG 78 BPM GEMUSE Atrial Rate 78 BPM GEMUSE P-R Interval 128 ms GEMUSE QRS Duration 96 ms GEMUSE Q-T Interval 392 ms GEMUSE QTc 446 ms GEMUSE P Wave [place] 56 degrees GEMUSE R [place] -3 degrees GEMUSE T [place] 33 degrees GEMUSE ECG Interpretation Normal sinus rhythm Nonspecific T wave abnormality Abnormal ECG No previous ECGs available Confirmed by MD Flood Christopher ([id number]) on 01/31/2025 8:16:57 AM GEMUSE 01/30/2025 9:14 AM EDT 01/31/2025 8:16 AM EDT Phil HERNANDEZ ECG ORDERABLES Final Resul t GEMUSE * Blood Culture, Peripheral Draw #1 (01/30/2025 7:45 AM EDT) Only the most recent of2 resultswithin the time period is included. [facility] Culture, Blood No growth at 5 days LAB MICROBIOLOGY METHOD 02/04/2025 9:01 AM EDT [facility] Blood Venous blood specimen / Unknown Venipuncture / Unknown 01/30/2025 7:45 AM EDT 01/30/2025 8:13 AM EDT Frederick Deutsch MD LAB MICROBIOLOGY - GENERAL ORDERABLES Final Result Performing Organization Address [facility]/ZIP Co de Phone Number [facility] [address] [place] [address], [place] [phone] * Lactate, with reflex (01/30/2025 7:33 AM EDT) [facility] LACTIC ACID 1.9 0.4 - 2.0 mmol/L LAB CHEMISTRY METHOD 01/30/2025 8:29 AM EDT [facility] Blood Venous blood specimen / Unknown Venipuncture / Unknown 01/30/2025 7:33 AM EDT 01/30/2025 7:47 AM EDT Frederick Deutsch MD LAB BLOOD ORDERABLES Final Result Performing Organization Address City/[facility]/ZIP Co de Phone Number [facility] [address] [place] [address], [place] [phone] * (ABNORMAL) CBC auto differential (01/30/2025 7:33 AM EDT) [facility] WBC 4.5(L) 4.8 - 10.8 K/mcL LAB HEMETOLOGY METHOD 01/30/2025 8:35 AM EDT [facility] RBC 4.60 4.50 - 5.50 M/mcL LAB HEMETOLOGY METHOD 01/30/2025 8:35 AM EDT [facility] Hemoglobin 14.0 13.5 - 17.5 g/dL LAB HEMETOLOGY METHOD 01/30/2025 8:35 AM EDT [facility] Hematocrit 40.5(L) 42.0 - 54.0 % LAB HEMETOLOGY METHOD 01/30/2025 8:35 AM [facility] MCV 87.7 79.0 - 98.0 FL LAB HEMETOLOGY METHOD 01/30/2025 8:35 AM [facility] MCH 30.3 27.0 - 32.0 pcg LAB HEMETOLOGY METHOD 01/30/2025 8:35 AM [facility] MCHC 34.6 32.0 - 37.0 g/dL LAB HEMETOLOGY METHOD 01/30/2025 8:35 AM [facility] RDW 13.6 11.0 - 15.0 % LAB HEMETOLOGY METHOD 01/30/2025 8:35 AM [facility] Platelets 122(L) 130 - 400 K/mcL LAB HEMETOLOGY METHOD 01/30/2025 8:35 AM [facility] Comment:reviewed by slide MPV 13.3(H) 7.0 - 11.0 FL LAB HEMETOLOGY METHOD 01/30/2025 8:35 AM [facility] NRBC 0.0 <1.0 % LAB HEMETOLOGY METHOD 01/30/2025 8:35 AM [facility] NRBC Absolute 0.00 <0.10 K/mcL LAB HEMETOLOGY METHOD 01/30/2025 8:35 AM [facility] Neutrophils Relative 56.3 % LAB HEMETOLOGY METHOD 01/30/2025 8:35 AM [facility] Lymphocytes Relative 32.6 % LAB HEMETOLOGY METHOD 01/30/2025 8:35 AM [facility] Monocytes Relative 7.8 % LAB HEMETOLOGY METHOD 01/30/2025 8:35 AM [facility] Eosinophils Relative 2.2 % LAB HEMETOLOGY METHOD 01/30/2025 8:35 AM EDT [facility] Basophils Relative 0.9 % LAB HEMETOLOGY METHOD 01/30/2025 8:35 AM EDT [facility] Immature Granulocytes Relative 0.2 % LAB HEMETOLOGY METHOD 01/30/2025 8:35 AM EDT [facility] Neutrophils Absolute 2.54 1.50 - 7.00 K/mcL LAB HEMETOLOGY METHOD 01/30/2025 8:35 AM EDT [facility] Lymphocytes Absolute 1.47 1.00 - 5.00 K/mcL LAB HEMETOLOGY METHOD 01/30/2025 8:35 AM EDT [facility] Monocytes Absolute 0.35 0.20 - 1.00 K/mcL LAB HEMETOLOGY METHOD 01/30/2025 8:35 AM EDT [facility] Eosinophils Absolute 0.10 0.00 - 0.50 K/mcL LAB HEMETOLOGY METHOD 01/30/2025 8:35 AM EDT [facility] Basophils Absolute 0.04 0.00 - 0.20 K/mcL LAB HEMETOLOGY METHOD 01/30/2025 8:35 AM EDT [facility] Immature Granulocytes Absolute 0.01 0.00 - 0.03 K/mcL LAB HEMETOLOGY METHOD 01/30/2025 8:35 AM EDT [facility] Blood Venous blood specimen / Unknown Venipuncture / Unknown 01/30/2025 7:33 AM EDT 01/30/2025 7:46 AM EDT us Frederick Deutsch MD LAB BLOOD ORDERABLES Final Result [facility] [address] [place] [address], * (ABNORMAL) Basic metabolic panel (01/30/2025 7:33 AM EDT) Sodium 139 133 - 145 mmol/L LAB CHEMISTRY METHOD 01/30/2025 8:31 AM [facility] Potassium 3.5 3.5 - 5.5 mmol/L LAB CHEMISTRY METHOD 01/30/2025 8:31 AM [facility] Comment:Hemolysis present Chloride 106 96 - 110 mmol/L LAB CHEMISTRY METHOD 01/30/2025 8:31 AM [facility] CO2 26 21 - 32 mmol/L LAB CHEMISTRY METHOD 01/30/2025 8:31 AM [facility] Anion Gap 7 3 - 11 LAB CHEMISTRY METHOD 01/30/2025 8:31 AM [facility] Glucose 133(H) 70 - 100 mg/dL LAB CHEMISTRY METHOD 01/30/2025 8:31 AM [facility] BUN 18 5 - 25 mg/dL LAB CHEMISTRY METHOD 01/30/2025 8:31 AM [facility] Creatinine 0.74 0.70 - 1.30 mg/dL LAB CHEMISTRY METHOD 01/30/2025 8:31 AM [facility] eGFR 111 >=60 mL/min/1. 73m2 LAB CHEMISTRY METHOD 01/30/2025 8:31 AM [facility] Comment:Calculation based on the Chronic Kidney Disease Epidemiology Collaboration (CKD-EPI) equation refit without adjustment for race. BUN/Creatinine Ratio 24.3 LAB CHEMISTRY METHOD 01/30/2025 8:31 AM [facility] Calcium 10.4 8.5 - 10.5 mg/dL LAB CHEMISTRY METHOD 01/30/2025 8:31 AM [facility] Blood Venous blood specimen / Unknown Venipuncture / Unknown 01/30/2025 7:33 AM EDT 01/30/2025 7:46 AM EDT us Frederick Deutsch MD LAB BLOOD ORDERABLES Final Result [facility] [address] [place] [address], [place] [phone] from Last 3 Months Insurance MEDICAID - [place] Care Teams Laundry Aide Relationship Specialty Start Date End Date Jojo Jaramillo MD [address] [place] [address] PCP - General Family Medicine 12/19/24
--- OUTSIDE RECORDS SUMMARY | 2025-02-12 18:51 | XMS_ITS | Encounter Summary ---
Author Organization [employer] Address [address] [facility] [address] [place] [address] Care Team Providers Care Electrical Instrument Repairer Name Role Phone Jojo Jaramillo MD Primary Care Provider [phone] Reason for Visit * Reason Onset Date Comments Call Back Request 12/21/2024 Encounter Details Date Type Department Care Team ([facility] st Contact Info) Description 12/21/2024 Telephone [facility] MEDICINE [address] [place], [place] [phone] Jojo Jaramillo MD [address], [place] [phone] Call Back Request (/) Social History Tobacco Use Types Packs/Day Years [...] AM EDT documented as of this encounter Functional Status * Over the past 2 weeks, how often have you been bothered by any of the following problems? Question Answer Date of Assessment Author Patient Health Questionnaire-2 Score 6 02/01/2025 12:11 PM EDT Lavon nAn * Little interest or pleasure in doing things Answer Date of Assessment Author Nearly every day 02/01/2025 12:11 PM EDT Lavon Mcgill * Feeling down, depressed, or hopeless Answer Date of Assessment Author Nearly every day 02/01/2025 12:11 PM EDT Lavon Mcgill * Trouble falling or staying asleep, or sleeping too much Answer Date of Assessment Author Nearly every day 02/01/2025 12:11 PM EDT Lavon Mcgill * Feeling tired or having little energy Answer Date of Assessment Author Nearly every day 02/01/2025 12:11 PM EDT Lavon Mcgill * Poor appetite or overeating Answer Date of Assessment Author Several days 02/01/2025 12:11 PM EDT Lavon Mendoza * Feeling bad about yourself - or that you are a failure or have let yourself or your family down Answer Date of Assessment Author Several days 02/01/2025 12:11 PM EDT Lavon Mendoza * Trouble concentrating on things, such as reading the newspaper or watching television Answer Date of Assessment Author Several days 02/01/2025 12:11 PM Lavon Shaffer * Moving or speaking so slowly that other people could have noticed? Or the opposite - being so fidgety or restless that you have been moving around a lot more than usual. Answer Date of Assessment Author Several days 02/01/2025 12:11 PM Lavon Shaffer * Thoughts that you would be better off or hurting yourself in some way Answer Date of Assessment Author Not at all 02/01/2025 12:11 PM Lavon Shaffer * Patient Health Questionnaire-9 Score Answer Date of Assessment Author 16 02/01/2025 12:11 PM Lavon Shaffer * How difficult have these problems made it for you to do your work, take care of things at home, or get along with other people? Answer Date of Assessment Author Very difficult 02/01/2025 12:11 PM Lavon Shaffer * Over the last 2 weeks, how often have you been bothered by any of the following problems? Question Answer Date of Assessment Author Feeling nervous, anxious, or on edge 2 02/01/2025 12:11 PM Lavon Drummond Not being able to stop or control worrying 2 02/01/2025 12:11 PM Lavon Drummond Worrying too much about different things 1 02/01/2025 12:11 PM Lavon Drummond Trouble relaxing 3 02/01/2025 12:11 PM Lavon Morejon Being so restless that it is hard to sit still 0 02/01/2025 12:11 PM Lavon Drummond Becoming easily annoyed or irritable 0 02/01/2025 12:11 PM Lavon Drummond Feeling afraid as if something awful might happen 1 02/01/2025 12:11 PM Lavon Luna DOTTIE-7 Total Score 9 02/01/2025 12:11 PM Lavon Morejon documented as of this encounter Miscellaneous Notes * Telephone Encounter - Jazlyn Knutson RN - 12/21/2024 1:29 PM EDT Telephone call returned to pt regarding below message utilizing [employer] #[id number]. Pt at times tearful during phone call. Reports 100/10 pain. Despite being Rxd 18 day supply of oxycodone 12/07/24 byP, he reports being out of pills already despite not being due for refill until 01/04. He states that pain is so severe that the low dose oxycodone doesn't help. Reports that he can't sleep and cries all day and night because of the pain. Requesting CT and pain meds. I informed him that PCP is out until Wednesday and so I am doubtful another provider will send him pain medications when he didn'ttake the ones he had as prescribed. Also, if CT was ordered today, could take up to 2 weeks for prior authorization through his insurance. Advised him to go to the ED as they could do CT same day andhelp with pain management as needed. Explained that we don't want him to be in pain and that we also want to get to the bottom of why he is in so much pain but that the fastest way to do that would for him to be seen at the hospital. Pt states doesn't want to waste his time, last time he went to the hospital they didn't do imaging and told him PCP has to Rx pain meds. Informed that I will fax allinformation to whichever hospital he goes to to advocate for him but he should also advocate for himself while there. Pt agreeable to going, states will go to [facility]. Faxed info from [facility] and [facility] over to [facility] ED. Pt also reports that he lives alone and has no family here. He hasn't been able to work because of this and he is scared he will lose his apartment because he can't pay his rent. He just wants to fix whatever is causing his pain. Pt reports that sometimes he doesn't, want to be here anymore . Denies current SI/HI but reports having had waited for a therapist for weeks and no one has called him. Wants to speak Vanesa FELIZ. Informed I would have someone reach out today. Pt heading to the ED now, records were faxed. Sending high priority message to [facility] team. * Telephone Encounter - Larry Washington - 12/21/2024 11:49 AM EDT Pt calling again wanting to speak with a nurse regarding getting u/s results, medication and possible CT scan . * Telephone Encounter - Sintia Nelson - 12/21/2024 8:36 AM EDT Tc from pt requesting a call back to discuss ultrasound taken yesterday. Also pt states he does nothave any pain medication. Contact Pt at [phone] ([email or web address]) documented in this encounter Plan of Treatment Upcoming Encounters Date Type Department Care Team (Late st Contact Info) Description 03/07/2025 9:30 AM EDT Clinical Support [facility] CHC MED & PEDS [address] [place] [address] Santa Wade, DAGOBERTO [address] [place] [address] 05/07/2025 9:00 AM EST Office Visit [facility] OPTOMETRY [address] [place] [address] Jennifer Kelly, OD [address] [place] [address] documented as of this encounter Visit Diagnoses Not on filedocumented in this encounter Additional Health Concerns Assessment Noted Time PHQ-9 Depression Total Score: 16 025 1:34 PM EDT documented as of this encounter Care Teams Electrical Instrument Repairer Relationship Specialty Start Date End Date Jojo Jaramillo MD [address] [place] [address] PCP - General Family Medicine 12/19/18 documented as of this encounter
--- OUTSIDE RECORDS SUMMARY | 2025-02-12 18:51 | XMS_ITS | Encounter Summary ---
Author Organization [employer] Address [address] [place] [address] Care Team Providers Care Relay Shop Tester Name Role Phone Jojo Jaramillo MD Primary Care Provider [phone] Encounter Details Date Type Department Care Team (Late st Contact Info) Description 12/21/2024 Orders Only [facility] MEDICINE [address] [place], [place] [phone] Jojo Jaramillo MD [address] [place], [place] [phone] Social History Tobacco Use Types Packs/Day Years [...] Description 03/07/2025 9:30 AM EDT Clinical Support [facility] CHC MED & PEDS [address] [place] [address] Santa Wade, DAGOBERTO [address] [place] [address] 05/07/2025 9:00 AM EST Office Visit [facility] OPTOMETRY [address] [place] [address] Robin, Jennifer, OD [address] [place] [address] documented as of this encounter Visit Diagnoses Not on filedocumented in this encounter Additional Health Concerns Assessment Noted Time PHQ-9 Depression Total Score: 16 025 1:34 PM EDT documented as of this encounter Care Teams Relay Shop Tester Relationship Specialty Start Date End Date Jojo Jaraimllo MD [address] [place] [address] PCP - General Family Medicine 12/19/18 documented as of this encounter
--- OUTSIDE RECORDS SUMMARY | 2025-02-12 18:51 | XMS_ITS | Encounter Summary ---
Author Organization [employer] [facility] Address [address] [facility] 7t [place] [address] Care Team Providers Care Horse Farm Manager Name Role Phone Jojo Jaramillo MD Primary Care Provider Encounter Details Date Type Department Care Team (Latest Contact Info) Description 03/27/2019 Abstract [facility] CONVERSIONS Dental, Provider, DDS Social History [facility] [address] [place] [address] Santa Wade, DAGOBERTO 505 [place] [address] 05/07/2025 9:00 AM EST Office Visit [facility] OPTOMETRY [address] [place] [address] Robin, Jennifer, OD [address] [place] [address] documented as of this encounter Visit Diagnoses Not on filedocumented in this encounter Care Teams Horse Farm Manager Relationship Specialty Start Date End Date Jojo Jaramillo MD [address] [place] [address] PCP - General Family Medicine 12/19/18 documented as of this encounter
--- OUTSIDE RECORDS SUMMARY | 2025-02-12 18:51 | XMS_ITS | Encounter Summary ---
Author Organization [employer] Address [address] [facility] 7t [place] [address] Care Team Providers Care Fairing Worker Name Role Phone Jojo Jaramillo MD Primary Care Provider Encounter Details Date Type Department Care Team (Late st Contact Info) Description 12/18/2022 Abstract [facility] MEDICINE [address] [place], [place] [phone] Jojo Jaramillo MD [address] [place] [address] Social History Tobacco Use Types Packs/Day Years [...] Description 03/07/2025 9:30 AM EDT Clinical Support [facility] MED & PEDS [address] [place] [address] Santa Wade, DAGOBERTO 505 [place] [address] 05/07/2025 9:00 AM EST Office Visit [facility] OPTOMETRY [address] [place] [address] Jennifer Kelly, OD [address] [place] [address] documented as of this encounter Visit Diagnoses Not on filedocumented in this encounter Additional Health Concerns Assessment Noted Time PHQ-9 Depression Total Score: 5 08/27/19 23 9:15 AM EDT documented as of this encounter Care Teams Fairing Worker Relationship Specialty Start Date End Date Jojo Jaramillo MD [address] [place] [address] PCP - General Family Medicine 12/19/18 documented as of this encounter
--- OUTSIDE RECORDS SUMMARY | 2025-02-12 18:51 | XMS_ITS | Encounter Summary ---
Author Organization [employer] Address [address] [facility] 7t [place] [address] Care Team Providers Care Research Lab Assistant Name Role Phone Jojo Jaramillo MD Primary Care Provider [phone] Reason for Visit * Reason Comments Med Refill Encounter Details Date Type Department Care Team (Late st Contact Info) Description 05/01/2024 Refill [facility] MEDICINE [address] [place], [place] [phone] Jojo Jaramillo MD [address] [place], [place] [phone] Social History Tobacco Use Types Packs/Day Years [...] Description 03/07/2025 9:30 AM EDT Clinical Support [facility] CHC MED & PEDS [address] [place] [address] Santa Wade, RN 505 [place] [address] 05/07/2025 9:00 AM EST Office Visit [facility] OPTOMETRY [address] [place], [place] [phone] Jennifer Kelly, OD [address] [place] [address] documented as of this encounter Visit Diagnoses Not on filedocumented in this encounter Additional Health Concerns Assessment Noted Time PHQ-9 Depression Total Score: 5 04/16/20 24 7:02 AM EST documented as of this encounter Care Teams Research Lab Assistant Relationship Specialty Start Date End Date Jojo Jaramillo MD [address] [place], [place] [phone] PCP - General Family Medicine 12/19/18 documented as of this encounter
--- OUTSIDE RECORDS SUMMARY | 2025-02-12 18:51 | XMS_ITS | Encounter Summary ---
Author Organization [employer] Address [address] [facility] 7t [place] [address] Care Team Providers Care Gear Keeper Name Role Phone Jojo Jaramillo MD Primary Care Provider [phone] Encounter Details Date Type Department Care Team (Late st Contact Info) Description 07/06/2022 Orders Only [facility] MED & PEDS [address] [place] [address] Aline Echevarria LPN Social History Tobacco Use [...] Description 03/07/2025 9:30 AM EDT Clinical Support [facility] MED & PEDS [address] [place] [address] Santa Wade, RN [address] [place] [address] 05/07/2025 9:00 AM EST Office Visit [facility] OPTOMETRY [address] [place] [address] RobinJennifer brunner, OD [address] [place] [address] documented as of this encounter Procedures Procedure Name Priority Date/Time Associated Diagnosis Comments HEMATOXYLIN AND EOSIN STAIN Routine 07/20/2022 11:21 AM EST GLUCOSE, WHOLE BLOOD Routine 07/20/2022 10:57 AM EST documented in this encounter Results * Hematoxylin and Eosin Stain (07/20/2022 11:21 AM EST) 07/20/2022 11:2 1 AM EST 07/20/2022 12:09 PM EST [facility] LABS - 07/21/2022 4:07 PM EST ----- ------- Name: Tomy Betancourt Age/Sex: 46/M : 1975 Unit#: [id number] Attend Dr: Tremayne Pandey Re07/20/22 Status: [facility] Location: [facility] Disch: ----- ------- SPEC : [id number] RECD: 07/20/22-1209 STATUS: CAMILA BERTRAND NUM: [id number] ANGELINA: 07/20/22-[address] [facility] [address]: Tremayne Pandey ENTERED: 07/20/22-1225 SP TYPE: Surgical OTHR DR: Jojo Jaramillo MD ORDERED: HE Stain/3, Gross Micro L4, IHC, H. pylori Diagnosis A. Gastric antrum, biopsy: Gastric antral mucosa with reactive changes, focal ectatic vessels, and minimal chronic inactive gastritis; negative for H pylori, intestinal metaplasia and dysplasia. Clinical History Pre-Op Dx: Epigastric pain, reflux disease Post-Op Dx: Gastritis, hiatal hernia Microscopic Description Microscopic sections reviewed. Immunohistochemical stain for H. pylori is negative with appropriate control. Material Received Gastric antrum bx's Gross Description Received in formalin labeled Gastric antrum bx's are three glistening, semitranslucent, soft, patricia-pink, irregular tissue fragments, ranging from 0.25 to 0.35 cm. in greatest dimension, which are submitted in toto in a single cassette labeled ATika CEDS Special studies ordered and performed: immunostain for H. pylori on A1. Copies To: Jojo Jaramillo MD [address] [place] [address] Tremayne Pandey [address] [place] [address] [address] [place] [address] CONTINUED ON NEXT PAGE ----- ------- Name: Tomy Betancourt Age/Sex: 46/M : 1975 Unit#: [id number] Attend Dr: Tremayne Pandey Re07/20/22 Status: [facility] Location: [facility] Disch: ----- ------- SPEC : [id number] RECD: 07/20/22-120 STATUS: CAMILA BERTRAND NUM: [id number] ANGELINA: 07/20/[address] [facility] [address]: Tremayne Pandey ENTERED: 07/20/22-122 SP TYPE: Surgical OTHR DR: Jojo Jaramillo MD ORDERED: HE Stain/3, Gross Micro L4, IHC, H. pylori ----- ------- Signed (signature on file) Chanel Rosa 07/21/22 1607 ----- ------- END OF REPORT [facility] External Provider LAB BLO OD ORDERABLES Final Result Performing Organization Address [facility] Co de Phone Number [facility] [address] [place], [place] [phone] * (ABNORMAL) GLUCOSE, WHOLE BLOOD (07/20/2022 10:57 AM EST) [facility] Glucose, Whole Blood 129(H) 60 - 115 mg/dL [facility] Comment:METER #: [id number] 07/20/2022 10:5 7 AM EST 07/20/2022 11:00 AM EST [facility] External Provider LAB BLO OD ORDERABLES Final Result Performing Organization Address [facility] de Phone Number [facility] [address] [place], [place] [phone] documented in this encounter Visit Diagnoses Not on filedocumented in this encounter Care Teams Gear Keeper Relationship Specialty Start Date End Date Jojo Jaramillo MD [address] [place] [address] PCP - General Family Medicine 12/19/18 documented as of this encounter
--- OUTSIDE RECORDS SUMMARY | 2025-02-12 18:51 | XMS_ITS | Encounter Summary ---
Author Organization [employer] Address [address] [address] [facility] [address] 7[address] [place] [address] Care Team Providers Care Or Manager Name Role Phone Jojo Jaramillo MD Primary Care Provider [phone] Encounter Details Date Type Department Care Team (Late st Contact Info) Description 02/09/2025 Telephone [facility] MEDICINE [address] [place], [place] [phone] Jazlyn Knutson RN [address] [place], [place] [phone] Social History Tobacco Use Types Packs/Day Years [...] Telephone Encounter - Jazlyn Knutson RN - 02/09/2025 9:28 AM EDT Pt walked into green team lobby demanding to speak with RN. Pt wants to give paperwork from ortho appt yesterday. Will scan into chart. Pt reports pain. Informed per note, ortho increased gabapentin from 100mg to 300mg. Pt states they decreased it from 500mg to 300mg. Informed that I am reading thenote and it was increased. Nowhere in his chart does it say that he was ever on gabapentin 500mg. Advised to take gabapentin as Rxd by ortho and tylenol. Will see if PA for butrans patches is being worked on. Strongly advised to come to PCP appt 02/12/25. Pt reports that he has another appt that day as well but doesn't know who it is with or what time. Per paperwork he presented, it is at [facility] ([address]) 02/12/25 @12:15PM. Informed I will send a message to his CHW to assist in making sure he makes it there and to PCP appt 02/12/25 @ 3PM. documented in this encounter Plan of Treatment Upcoming Encounters Date Type Department Care Team (Late st Contact Info) Description 03/07/2025 9:30 AM EDT Clinical Support [facility] CHC MED & PEDS [address] [place] [address] Santa Wade, RN [address] [place], [place] [phone] 05/07/2025 9:00 AM EST Office Visit [facility] OPTOMETRY [address] [place] [address] Jennifer Kelly, OD [address] [place], [place] [phone] documented as of this encounter Visit Diagnoses Not on filedocumented in this encounter Additional Health Concerns Assessment Noted Time PHQ-9 Depression Total Score: 16 02/01/ 025 12:11 PM EDT documented as of this encounter Care Teams Or Manager Relationship Specialty Start Date End Date Jojo Jaramillo MD [address] [place] [address] PCP - General Family Medicine 12/19/18 documented as of this encounter
--- OUTSIDE RECORDS SUMMARY | 2025-02-12 18:51 | XMS_ITS | Encounter Summary ---
Author Organization [employer] Address [address] [facility] [address] 7[address] [place] [address] Care Team Providers Care Delivery Manager Name Role Phone Jojo Jaramillo MD Primary Care Provider [phone] Encounter Details Date Type Department Care Team (Late st Contact Info) Description 11/27/2024 Orders Only [facility] MEDICINE [address] [place], [place] [phone] Jojo Jaramillo MD [address] [place], [place] [phone] Social History Tobacco Use Types Packs/Day Years [...] 03/07/2025 9:30 AM EDT Clinical Support [facility] CHC MED & PEDS [address] [place] [address] Santa Wade, DAGOBERTO [address] [place] [address] 05/07/2025 9:00 AM EST Office Visit [facility] OPTOMETRY [address] [place] [address] Robin, Jennifer, OD [address] [place] [address] documented as of this encounter Visit Diagnoses Not on filedocumented in this encounter Additional Health Concerns Assessment Noted Time PHQ-9 Depression Total Score: 5 04/16/20 24 7:02 AM EST documented as of this encounter Care Teams Delivery Manager Relationship Specialty Start Date End Date Jojo Jaramillo MD [address] [place] [address] PCP - General Family Medicine 12/19/18 documented as of this encounter
--- OUTSIDE RECORDS SUMMARY | 2025-02-12 18:51 | XMS_ITS | Encounter Summary ---
Author Organization [employer] Address [address] [facility] 7t [place] [address] Care Team Providers Care Leveling Machine Operator Name Role Phone Jojo Jaramillo MD Primary Care Provider [phone] Reason for Visit * Reason Onset Date Comments Appointment Request 08/17/2024 Encounter Details Date Type Department Care Team ([facility] st Contact Info) Description 08/17/2024 Telephone [facility] MEDICINE [address] [place], [place] [phone] Jojo Jaramillo MD [address] [place], [place] [phone] Appointment Request Social History Tobacco Use Types [...] R/s Apt from 08/17/24. Contact pt at [phone] documented in this encounter Plan of Treatment Upcoming Encounters Date Type Department Care Team (Late st Contact Info) Description 03/07/2025 9:30 AM EDT Clinical Support [facility] CHC MED & PEDS [address] [place] [address] Santa Wade, RN 505 [place] [address] 05/07/2025 9:00 AM EST Office Visit [facility] OPTOMETRY [address] [place] [address] Jennifer Kelly, OD [address] [place] [address] documented as of this encounter Visit Diagnoses Not on filedocumented in this encounter Additional Health Concerns Assessment Noted Time PHQ-9 Depression Total Score: 5 04/16/20 24 7:02 AM EST documented as of this encounter Care Teams Leveling Machine Operator Relationship Specialty Start Date End Date Jojo Jaramillo MD [address] [place] [address] PCP - General Family Medicine 12/19/18 documented as of this encounter
--- OUTSIDE RECORDS SUMMARY | 2025-02-12 18:51 | XMS_ITS | Clinical Summary ---
Author Organization [facility] Address [address] [place] [address] Care Team Providers Care Gymnasium Teacher Name Role Phone Jojo Gilmore MD Primary Care Provider [phone] Allergies No known active allergies Medications * This document contains information received from the source organization and may not represent a complete record from that organization. Pyridoxine HCl (Vitamin B6) 100 MG tablet daily. 05/01/20 19 Active fluticasone (Flonase) 50 MCG/ACT nasal sprayIndications :Allergic rhinitis, unspecified seasonality, unspecified trigger INSTILL 1-2 SPRAYS IN EACH NOSTRIL ONCE DAILY NEEDED 16 g 2 11/12/19 23 Active Diclofenac Sodium 1 % gel Apply to affected area once daily as needed for pain 150 g 11 12/26/19 23 Active betamethasone, augmented, (Diprolene) 0.05 % ointmentIndicati ons:Psoriasiform dermatitis,Psori asis APPLY TOPICALLY TO THE AFFECTED AREA(S) TWICE DAILY 50 g 1 07/16/19 24 Active ketoconazole (NIZOral) 2 % cream APPLY TOPICALLY TO THE AFFECTED AREA(S) ONCE DAILY rehan ventilar la piel 30 g 3 07/05/19 24 Active nicotine polacrilex (Commit) 2 MG lozenge Dissolve 1 lozenge (2 mg) in the mouth if needed for smoking cessation. 100 lozenge 11/23/19 24 Active escitalopram (Lexapro) 20 MG tablet Take 1 tablet (20 mg) by mouth Once daily. 90 tablet 3 01/27/20 24 Active glucose blood (FREESTYLE LITE) test stripIndications :Type 2 diabetes mellitus without complications (CMS/HCC) USE DIRECTED TO TEST BLOOD SUGAR TWICE DAILY NEEDED 100 strip 11 07/07/19 25 Active metFORMIN XR (Glucophage-XR) 500 MG 24 hr tablet TAKE 1 TABLET BY MOUTH EVERY DAY IN THE EVENING WITH A MEAL 90 tablet 3 07/07/19 25 Active TRUEplus Lancets 33G [facility] USE DIRECTED TO TEST BLOOD SUGAR TWICE DAILY NEEDED 100 each 11 08/08/19 25 Active lisinopril 20 MG tablet TAKE 1 TABLET BY MOUTH EVERY DAY IN THE MORNING 90 tablet 3 08/18/19 25 Active cyclobenzaprine (Flexeril) 5 MG tablet Take 1 tablet (5 mg) by mouth Once per day. 30 tablet 5 12/08/19 25 Active cholecalciferol (Vitamin D-3) 25 MCG (1000 UT) tablet Take 1 tablet (25 mcg) by mouth Once per day. 90 tablet 3 12/08/19 25 Active buprenorphine (Butrans) 10 MCG/HRIndication s:Chronic low back pain, unspecified back pain laterality, unspecified whether sciatica present,Chronic pain of right knee,Bilateral leg pain,Other chronic pain,Sprain of left ankle, unspecified ligament, subsequent encounter,Chroni c pain of left ankle,Closed fracture of lumbar vertebra, unspecified fracture morphology, unspecified lumbar vertebral level, initial encounter (CMS/[facility]) Place 1 patch on the skin 1 (one) time per week. 4 patch 12/29/19 25 Active atorvastatin (Lipitor) 40 MG tablet TAKE 1 TABLET BY MOUTH ONCE DAILY 90 tablet 3 01/18/20 25 Active clonazePAM (KlonoPIN) 1 MG tablet Take 1 tablet (1 mg) by mouth 3 times daily. 90 tablet 01/17/20 25 Active Acetaminophen Extra Strength 500 MG tabletIndication s:Chronic low back pain with left-sided sciatica, unspecified back pain laterality TAKE 1 TO 2 TABLETS EVERY 8 HOURS NEEDED FOR FEVER OR PAIN 60 tablet 02/01/20 25 Active celecoxib (CeleBREX) 100 MG capsule Take 1 capsule (100 mg) by mouth 2 times daily. 60 capsule 3 02/01/20 25 Active atorvastatin (Lipitor) 40 MG tablet Take 1 tablet (40 mg) by mouth Once per day. 90 tablet 3 10/18/19 24 025 Discontinued celecoxib (CeleBREX) 100 MG capsule Take 1 capsule (100 mg) by mouth 2 times daily. 60 capsule 12/08/19 25 025 Discontinued clonazePAM (KlonoPIN) 1 MG tablet Take 1 tablet (1 mg) by mouth 3 times daily. 90 tablet 12/08/19 25 025 Discontinued(R eorder (will not trigger notification to Pharmacy)) Acetaminophen Extra Strength 500 MG tabletIndication s:Acute midline thoracic back pain,Sprain of left ankle, unspecified ligament, initial encounter TAKE 1 TO 2 TABLETS EVERY 8 HOURS NEEDED FOR FEVER OR PAIN 60 tablet 12/27/19 25 025 Discontinued(R eorder (will not trigger notification to Pharmacy)) celecoxib (CeleBREX) 100 MG capsule TAKE 1 CAPSULE BY MOUTH TWICE DAILY 60 capsule 3 01/18/20 25 025 Discontinued(R eorder (will not trigger notification to Pharmacy)) gabapentin (Neurontin) 100 MG capsuleIndicatio ns:Sciatica of left side Take 1 capsule (100 mg) by mouth in the morning and 1 capsule (100 mg) before bedtime. Do all this for 10 days. 20 capsule 02/01/20 25 025 Discontinued gabapentin (Neurontin) 100 MG capsuleIndicatio ns:Sciatica of left side Take 1 capsule (100 mg) by mouth 2 times daily. 60 capsule 02/10/20 25 025 Discontinued(O ther) Active Problems Problem Noted Date Diagnosed Date Chronic ulcer of toe of left foot, limited to breakdown of skin 01/31/2025 Sciatica of left side 01/31/2025 Fracture of lumbar spine 12/18/2024 Assessment & Plan (12/18/2024 12:11 PM EDT): - waiting for an appointment with orthopedist and PT - will increase oxycodone dose from 5 to 10 mg q6h prn - continue celecoxib; emphasized its judicious and responsible use Chronic pain of left ankle 12/18/2024 Assessment & Plan (12/18/2024 12:18 PM EDT): - s/p fall. Evaluated in [facility] ED. CT on 11/22/24 was negative for fracture. - currently on oxycodone, celecoxib, APAP, and gabapentin - increase oxycodone dose - consider repeat imaging if persistent pain / swelling Transaminitis 12/18/2024 Assessment & Plan (12/18/2024 12:19 PM EDT): - when he was in ED - likely transient - repeat lab showed decreasing levels; will repeat again prior to next visit - consider imaging if still elevated Moderate recurrent major depression 12/07/2024 Assessment & Plan (02/01/2025 12:15 PM EDT): >>ASSESSMENT AND PLAN FOR DEPRESSION WRITTEN ON 08/26/2022 10:02 AM BY NALDO HAMMONDS -Previously tried SSRI, recently, Lexapro which was ineffective -Engaged in Counseling at [facility] Provider -Continue Behavioral health services -Changed Lexapro to Buspirone -Will Rx Clonazepam 0.5mg prn, max 10 tablets per month Assessment & Plan (02/01/2025 12:15 PM EDT): >>ASSESSMENT AND PLAN FOR DEPRESSION WRITTEN ON 12/21/2022 11:57 AM BY JOJO GILMORE MD -Previously tried SSRI, recently, Lexapro which was ineffective. Pt is hesitant to try Buspirone or hydroxyzine -Engaged in Counseling at [facility] Provider, and started seeing psychiatrist -Continue current Behavioral health services -Continue judicious use of clonazepam; recommended to take it at night if he cannot sleep due to anxiety Assessment & Plan (02/01/2025 12:15 PM EDT): >>ASSESSMENT AND PLAN FOR DEPRESSION WRITTEN ON 06/27/2023 12:53 PM BY JOJO GILMORE MD -Previously tried SSRI, recently, Lexapro which was ineffective. Pt is hesitant to try Buspirone or hydroxyzine -Engaged in Counseling at [facility] Provider, and started seeing psychiatrist -Continue current Behavioral health services -Continue judicious use of clonazepam; recommended to take it at night if he cannot sleep due to anxiety Assessment & Plan (02/01/2025 12:15 PM EDT): >>ASSESSMENT AND PLAN FOR DEPRESSION WRITTEN ON 10/12/2023 11:26 AM BY JONAH RUBY -Previously tried SSRI, recently, Lexapro which was ineffective. Pt is hesitant to try Buspirone or hydroxyzine -Engaged in Counseling at [facility], and started seeing psychiatrist -Continue current Behavioral health services -Continue judicious use of clonazepam; recommended to take it at night if he cannot sleep due to anxiety - patient is requesting PCP to prescribe his medications due to high copays with psychiatrist Assessment & Plan (02/01/2025 12:15 PM EDT): >>ASSESSMENT AND PLAN FOR DEPRESSION WRITTEN ON 01/21/2024 3:50 PM BY JOJO GILMORE MD -Previously connected with [facility] -PHQ9 score 19 today; he declines to return to behavioral health service provider as he speaks with integrated behavioral health service at work and has copay for each visit -continue escitalopram 10 mg daily -agreed to prescribe clonazepam 1 mg tid under CENTRAL PROCESSING TECHNICIAN agreement -reassess Dx Assessment & Plan (02/01/2025 12:15 PM EDT): >>ASSESSMENT AND PLAN FOR DEPRESSION WRITTEN ON 04/16/2024 7:14 AM BY JOJO GILMORE MD -Previously connected with [facility] -PHQ9 score 19 in January 2024; he declines to return to behavioral health service provider as he speaks with integrated behavioral health service at work and has copay for each visit -PHQ9 score has improved today, score 5 -continue escitalopram 10 mg daily -agreed to prescribe clonazepam 1 mg tid under CENTRAL PROCESSING TECHNICIAN agreement -reassess Dx Acute midline thoracic back pain 12/04/2024 Sprain of left ankle 12/04/2024 Long-term current use of opiate analgesic 2024 Chronic pain 07/19/2024 Assessment & Plan (07/19/2024 4:53 AM EST): - consider evaluating and treating for fibromyalgia - patient has already tried acupuncture - patient has tried PT - recommended to reschedule appointment with CENTRAL PROCESSING TECHNICIAN nurse - recommended to consider trying duloexetine [...] panel Mood disorder 01/21/2024 Assessment & Plan (12/18/2024 12:09 PM EDT): - Hx bipolar disorder - most recent behavioral health service provider: [facility] - recently being treated for anxiety and depression - most recently prescribed medications: clonazepam 1 mg tid; escitalopram 10 mg daily; trazodone 50 mg at bedtime - patient dislikes the side effect of trazodone - agreed to continue clonazepam and escitalopram - referred to CENTRAL PROCESSING TECHNICIAN RN for clonazepam - patient declines behavioral health service because he speaks with our integrated behavioral health service clinician - discussed about trial of duloexetine (Cymbalta) since he has chronic pain and his pain may partly be due to fibromyalgia. Assessment & Plan (07/19/2024 4:50 AM EST): - Hx bipolar disorder - most recent behavioral health service provider: [facility] - recently being treated for anxiety and depression - most recently prescribed medications: clonazepam 1 mg tid; escitalopram 10 mg daily; trazodone 50 mg at bedtime - patient dislikes the side effect of trazodone - agreed to continue clonazepam and escitalopram - referred to CENTRAL PROCESSING TECHNICIAN RN for clonazepam - patient declines behavioral health service because he speaks with our integrated behavioral health service clinician - discussed about trial of duloexetine (Cymbalta) since he has chronic pain and his pain may partly be due to fibromyalgia. Assessment & Plan (01/21/2024 3:48 PM EDT): - Hx bipolar disorder - most recent behavioral health service provider: [facility] - recently being treated for anxiety and depression - most recently prescribed medications: clonazepam 1 mg tid; escitalopram 10 mg daily; trazodone 50 mg at bedtime - patient dislikes the side effect of trazodone - agreed to continue clonazepam and escitalopram - refer to CENTRAL PROCESSING TECHNICIAN RN for clonazepam - patient declines behavioral [...] get, needs authorization - schedule appointment with CENTRAL PROCESSING TECHNICIAN nurse - been going to PT without [...] 50 mg BID - schedule appointment with CENTRAL PROCESSING TECHNICIAN nurse Esophageal reflux 10/08/2023 Gastritis 10/08/2023 Ingrown toenail of both feet 09/15/2023 Assessment & Plan (10/12/2023 11:27 AM EDT): - patient was seen by manager proposal recently Psoriasis 11/06/2022 Assessment & Plan (04/12/2024 [...] 11:26 AM EDT): - was evaluated by Dealer Support Technician, Dr. Aquino - prescribed Betamethasone, which has been effective - upcoming appointment with Dr. Santos in Jul 2023 Assessment & Plan (06/27/2023 12:56 PM EST): - was evaluated by Dealer Support Technician, Dr. Aquino - prescribed Betamethasone, which has been effective - upcoming appointment with Dr. Santos in Jul 2023 Assessment & Plan (12/15/2022 10:52 AM EDT): - was evaluated by Dealer Support Technician, Dr. Aquino - prescribed Betamethasone, which has [...] (04/16/2024 7:15 AM EST): -Previously connected with [facility] -GAD7 score 19 in Jan 2024; he declined to return to behavioral health service provider as he speaks with integrated behavioral health service at work and has copay for each visit -GAD7 score 4 today -continue escitalopram 10 mg daily -agreed to prescribe clonazepam 1 mg tid under CENTRAL PROCESSING TECHNICIAN agreement -reassess Dx Assessment & Plan (01/21/2024 3:50 PM EDT): -Previously connected with [facility] -GAD7 score 19 today; he declines to return to behavioral health service provider as he speaks with integrated behavioral health service at work and has copay for each visit -continue escitalopram 10 mg daily -agreed to prescribe clonazepam 1 mg tid under CENTRAL PROCESSING TECHNICIAN agreement -reassess Dx Assessment & Plan (10/12/2023 11:26 AM EDT): Currently connected with [facility] Continue current treatment per Dr. Marr Patient is considering about not continuing with the agency because of high copay for each visit. Assessment & Plan (06/27/2023 12:53 PM EST): Currently connected with [facility] Continue current treatment per Dr. Marr [...] to fear of reinjuring ACL -Seen by [facility] on 11/06/22 -Dx right knee patellofemoral [...] to fear of reinjuring ACL -Seen by [facility] on 11/06/22 -Dx right knee patellofemoral OA - patient has tried NSAIDs, APAP, and celecoxib, which were all ineffective - will prescribe tramadol under CENTRAL PROCESSING TECHNICIAN agreement Assessment & Plan (12/21/2022 11:53 AM EDT): - h/o ACL tear -Pt is hesitant to receive steroid injection -Pt stopped being physically active due to fear of reinjuring ACL -Seen by [facility] on 11/06/22 -Dx right knee patellofemoral [...] Orthopedist Essential hypertension 07/14/2018 Assessment & Plan (12/18/2024 12:05 PM EDT): Goal BP <130/80 per ACC/AHA, BP is not at goal -Continue Lisinopril 30 mg daily -Work on lifestyle modifications -Improve Medication adherence -Advised to continue checking home BP -f/u in 3 months - patient was referred to naval architect but he is not enthusiastic to go to the appointment Assessment & Plan (07/11/2024 5:43 PM EST): Goal BP < 140/90 per JNC-8, <130/80 per ACC/AHA, BP is not at goal -Continue Lisinopril 30 mg daily -Work on lifestyle modifications -Improve Medication adherence -Advised to continue checking home BP -f/u in 3 months - patient was referred to naval architect but he is not enthusiastic to go to the appointment Assessment & Plan (04/10/2024 11:54 AM EST): Goal BP < 140/90 per JNC-8, <130/80 per ACC/AHA, BP is not at goal -Continue Lisinopril 30 mg daily -Work on lifestyle modifications -Improve Medication adherence -Advised to continue checking home BP -f/u in 3 months - patient was referred to naval architect but he is not enthusiastic to go to the appointment Assessment & Plan (01/18/2024 4:05 PM EDT): Goal BP < 140/90 per JNC-8, <130/80 per ACC/AHA, BP is not at goal -Continue Lisinopril 20 mg daily -Work on lifestyle modifications -Improve Medication adherence -Advised to continue checking home BP -f/u in 3 months - patient was referred to naval architect but he is not enthusiastic to go [...] diabetes mellitus without complication Assessment & Plan (12/10/2024 8:04 AM EDT): - A1c 6.3% on 12/07/24, improved from 6.4% on 07/11/24 -Continue Metformin 500 mg daily -Encouraged patient to improve medication. -Continue working on lifestyle modification Last eye exam: 05/01/24 at [facility]. No retinopathy Last foot exam: 06/22/23 Last lipid profile: 11/30/24 TRIG 134; CHOL 183; LDL 119; HDL 38 Last microalbumin test- 08/26/23 no microalbuminuria Follow up in 4-6 mo or prn Assessment & Plan (07/19/2024 4:45 AM EST): - A1c 6.4% on 07/11/24, trending up from 5.8% on 01/18/24 -Continue Metformin 500 mg daily -Encouraged patient to improve medication. -Continue working on lifestyle modification Last eye exam: 05/01/24 at [facility]. No retinopathy Last foot exam: 06/22/23 Last lipid profile: 08/26/23 Last microalbumin test- 08/26/23 no microalbuminuria Follow up in 4-6 mo or prn Assessment & Plan (04/12/2024 8:43 PM EST): - A1c 5.8% on 01/18/24 -Continue Metformin 500 mg daily -Encouraged patient to improve medication. -Continue working on lifestyle modification Last eye exam: 07/31/22 at [facility]. No retinopathy Last foot [...] lifestyle modification Last eye exam: 07/31/22 at [facility]. No retinopathy Last foot [...] lifestyle modification Last eye exam: 07/31/22 at [facility]. No retinopathy Last foot [...] lifestyle modification Last eye exam: 07/31/22 at [facility]. No retinopathy Last foot [...] lifestyle modification Last eye exam: 07/31/22 at [facility]. No retinopathy Last foot [...] lifestyle modification Last eye exam: 07/31/22 at [facility]. No retinopathy Last foot exam: 08/21/21 Last lipid profile: 08/30/20 TC 169; TG 59; HDL 50; LDL 105 Last microalbumin test- 08/30/20 no microalbuminuria Resolved Problems Problem Noted Date Diagnosed Date [...] 72 hours (temperature should be less than 100 F without medication). Gastritis 08/26/2022 12/15/2022 Overview (08/26/2022): [...] organization. Date Type Department Care Team Description 02/09/2025 Telephone [facility] [address] [facility] [place] [address] Fatemeh Avery MA 02/09/[address] [facility] [address] [place] [address] Demetrio Yao Recovery Supports 02/09/2025 Telephone [facility] [address] [facility] [place] [facility] [place] [address] Jojo Gilmore MD Care Coordination (PT1) 02/09/[address] [facility] [address] [facility] [place] [address] Jojo Gilmore MD Sciatica of left side 02/09/[address] [facility] [address] [facility] [place] [address] Jazlyn Knutson RN 02/08/[address] [facility] [address] [facility] [place] [address] Sara Pimentel FNP Sciatica of left side 02/08/[address] [facility] [address] [facility] [place] [address] Demetrio Yao Recovery Supports 02/08/[address] [facility] [address] [place] [address] Analilia Varghese, DAGOBERTO 02/08/[address] [facility] [address] [facility] [place] [address] Analilia Varghese, RN 02/06/[address] [facility] [address] [place] [address] Avtar Mendoza Recovery Supports 02/02/[address] [facility] [address] [facility] [place] [address] Jojo Gilmore MD Pre-visit Planning (Pre visit planning LVM ) 02/02/[address] [facility] [address] [place] [address] Jojo Gilmore MD 02/02/2025 Orders Only [facility] [address] [place] [phone] Jojo Gilmore MD Chronic low back pain with left-sided sciatica, unspecified back pain laterality (Primary Dx); Sciatica of left side; Sprain of left ankle, unspecified ligament, subsequent encounter; Anxiety; Mood disorder ([facility]) 01/31/2025 9:30 AM EDT Office Visit [facility] [address] [place] [address] Chalino Pimentele, [employer] MECH[employer]IC Sciatica of left side (Primary Dx); Chronic low back pain with left-sided sciatica, unspecified back pain laterality; Chronic ulcer of toe of left foot, limited to breakdown of skin (CMS/[facility]); Sprain of left ankle, unspecified ligament, subsequent encounter 01/31/2025 Telephone [facility] [address] [place] [phone] Jojo Gilmore MD ER Follow-up 01/31/2025 Travel 01/30/2025 Telephone [facility] [address] [place] [phone] Jojo Gilmore MD ER Follow-up 01/17/2025 Telephone [facility] [address] [place] [address] Santa Wade RN 01/16/2025 Refill [facility] [address] [place] [phone] Sara Pimentel, FIXED [employer] MECH[employer]IC Acute midline thoracic back pain; Sprain of left ankle, unspecified ligament, initial encounter 01/16/2025 Refill [facility] [address] [place] [address] Jojo Gilmore MD 01/03/2025 Telephone [facility] [address] [place] [phone] Jojo Gilmore MD 12/29/2024 Refill [facility] [address] [place] [address] Jojo Gilmore MD Arthralgia of both knees; Chronic midline low back pain, unspecified whether sciatica present 12/28/2024 Orders Only [facility] [address] [place] [phone] Jojo Gilmore MD Chronic low back pain, unspecified back pain laterality, unspecified whether sciatica present; Chronic pain of right knee; Bilateral leg pain; Other chronic pain; Sprain of left ankle, unspecified ligament, subsequent encounter; Chronic pain of left ankle; Closed fracture of lumbar vertebra, unspecified fracture morphology, unspecified lumbar vertebral level, initial encounter ([facility]) 12/28/2024 Refill [facility] [address] [place] [phone] Jojo Gilmore MD Closed fracture dislocation of lumbar spine, initial encounter ([facility]) 12/27/[address] [address] Jojo Gilmore MD TRANSFER REQUEST 12/26/2024 Patient Outreach [address] [address] Avtar Mendoza Outreach/No Answer (Patient answered ) 12/26/[address] [address] Fidelia Mosher RN ED F/U and Status Check 12/25/2024 Refill [facility] [address] [place], [place] [id number] Dima Castillo MD Arthralgia of both knees; Chronic midline low back pain, unspecified whether sciatica present 12/25/2024 Refill [facility] [address] [place] [phone] Sara Pimentel FNP Acute midline thoracic back pain; Sprain of left ankle, unspecified ligament, initial encounter 12/22/2024 Orders Only [facility] [address] [place] [phone] Jojo Gilmore MD Chronic low back pain, unspecified back pain laterality, unspecified whether sciatica present (Primary Dx); Chronic pain of right knee; Bilateral leg pain; Other chronic pain; Sprain of left ankle, unspecified ligament, subsequent encounter; Chronic pain of left ankle; Closed fracture of lumbar vertebra, unspecified fracture morphology, unspecified lumbar vertebral level, initial encounter ([facility]) 12/22/2024 Orders Only [facility] [address] [facility] [place], [place] [address] Jojo Gilmore MD 12/22/2024 Orders Only [facility] [address] [facility] [place], [place] [address] Jojo Gilmore MD Closed fracture of lumbar vertebra, unspecified fracture morphology, unspecified lumbar vertebral level, initial encounter ([facility]) (Primary Dx); Closed fracture dislocation of lumbar spine, initial encounter ([facility]); Sprain of left ankle, unspecified ligament, initial encounter 12/21/2024 Orders Only [facility] [address] [facility] [place] [address] Jojo Gilmore MD Acute left ankle pain (Primary Dx); Closed fracture dislocation of lumbar spine, initial encounter ([facility]) 12/21/2024 Orders Only [facility] MED[facility] [address] [facility] [place] [address] Jojo Gilmore MD 12/21/[address] [facility] [address] [facility] [place] [address] Jojo iGlmore MD Call Back Request (/) 12/20/[address] [facility] [address] [facility] [place] [address] Jojo Gilmore MD Nurse Triage 12/19/2024 Orders Only [facility] MEDICINE [address] [facility] [place] [address] Jojo Gilmore MD Pain and swelling of toe of left foot (Primary Dx) 12/18/[address] [facility] [address] [facility] [place] [address] Jojo Gilmore MD Imaging Orders; Nurse Triage 12/07/2024 11:15 AM EDT Office Visit [facility] [address] [facility] [place] [address] Jojo Gilmore MD Essential hypertension (Primary Dx); Type 2 diabetes mellitus without complication, unspecified whether intermediate teacher insulin use ([facility]); Closed fracture dislocation of lumbar spine, initial encounter ([facility]); Mood disorder ([facility]); Closed fracture of lumbar vertebra, unspecified fracture morphology, unspecified lumbar vertebral level, initial encounter ([facility]); Chronic pain of left ankle; Transaminitis 12/07/2024 Travel 12/06/[address] [facility] [address] [place] [address] Jojo Gilmore MD CHART PREP 12/04/[address] [facility] [address] [place] [address] Sara Pimentel, [employer] OFFSET LABEL REWINDER 12/01/2024 9:15 AM EDT Office Visit [facility] [address] [place] [address] Sara Pimentel, [employer]CH[employer]IC Acute midline thoracic back pain (Primary Dx); Sprain of left ankle, unspecified ligament, initial encounter 12/01/2024 Refill [facility] MED & PEDS [address] [place] [address] Dima Castillo MD Arthralgia of both knees; Chronic midline low back pain, unspecified whether sciatica present 12/01/2024 Telephone [facility] MED & PEDS [address] [place] [address] Santa Wade RN 12/01/2024 Travel 11/30/2024 Patient Outreach [address] [address] Avtar Mendoza Recovery Supports 11/30/2024 Patient Outreach [address] [address] Dane Steele Recovery Supports 11/30/[address] [address] Brian Murphy [place] CHARTPREP 11/29/2024 Orders Only [address] [address] Jojo Gilmore MD 11/29/[address] [address] Jazlyn Knutson, DAGOBERTO Hospital Follow-up 11/27/2024 Orders Only [address] [address] Jojo Gilmore MD 11/26/2024 Orders Only GENERIC EXTERNAL DATA DEPARTMENT Provider, Generic External Data 11/16/[address] [address] Jojo Gilmore MD chart prep 11/15/2024 9:30 AM EDT Clinical Support [facility] MED & PEDS [address] [place] [address] Santa Wade RN Anxiety 11/15/2024 Travel 11/14/[address] [facility] [address] [place] [address] Demetrio Yao Recovery Supports 11/13/2024 Patient Outreach [address] [address] Jose Maria Motta Recovery Supports 11/13/2024 Travel 11/13/[address] [address] Jojo Gilmore MD Appointment Request 11/13/2024 Refill [facility] MED & PEDS [address] [place] [address] Jojo Gilmore MD from Last 3 Months Immunizations Immunization Administration Dates Next Due Hep A, Adult [...] Sign Reading Time Taken Comments Blood Pressure 136/82 01/31/2025 9:40 AM EDT Pulse 101 01/31/2025 9:40 AM EDT Temperature 36.7 C (98.1 F) 01/31/2025 9:40 AM EDT Respiratory Rate 20 01/31/2025 9:40 AM EDT Oxygen Saturation 99% 01/31/2025 9:40 AM EDT Inhaled Oxygen Concentration - - Weight 83.9 kg (185 lb) 01/31/2025 9:40 AM EDT Height 172.7 cm (5' 8 ) 01/31/2025 9:40 AM EDT Body Mass Index 28.13 01/31/2025 9:40 AM EDT Plan of Treatment Upcoming Encounters Date Type Department Care Team (Late st Contact Info) Description 03/07/2025 9:30 AM EDT Clinical Support [facility] MED & PEDS [address] [place] [address] Santa Wade, RN [address] [place] [address] 05/07/2025 9:00 AM EST Office Visit [facility] OPTOMETRY [address] [place] [address] Jennifer Kelly, OD [address] [place] [address] Health Maintenance Due Date Last Done Comments CT Colonography 1975 FIT DNA/Cologuard 1975 FIT 1975 FOBT 1975 Sigmoidoscopy 1975 Family Planning (PISQ) 12/10/1990 Pneumococcal Vaccine: Pediatrics (0 to 5 Years) and At-Risk Patients (6 to 49) Years (2 of 2 - PCV) 10/21/2013 10/21/2012 Diabetes: Urine Protein Screening 08/25/2024 08/26/2023, 08/30/2020 COVID-19 Vaccine ( season) 2025 06/27/2020, 05/30/2020 Influenza Vaccine (#1) 2025 , 03/13/2020, 02/15/2019, Additional history exists Diabetes: Hemoglobin A1C 03/09/2025 025, 07/11/2024, 01/18/2024, Additional history exists Alcohol/Substance Use Screening 04/10/2025 04/10/2024 SDOH Screening 04/10/2025 04/10/2024 Depression Monitoring 08/04/2025 02/01/2025, 025 Lipid Panel 11/30/2025 11/30/2024, 08/06, 03/31/2022, Additional history exists Disability Screening 12/07/2025 12/07/2024 Zoster Vaccines (1 of 2) 12/10/2025 Diabetes: Foot Exam 01/31/2026 01/31/2025, 01/31/2025, 01/31/2025, Additional history exists Tobacco Screening 01/31/2026 01/31/2025 Eye Exam 05/01/2026 05/01/2024, 04/08, 05/01/2024, Additional [...] Comments POCT GLYCOSYLATED HEMOGLOBIN (HGB A1C) Routine 12/07/2024 11:46 AM EDT Type 2 diabetes mellitus without complication, unspecified whether usp insulin use ([facility]) POCT GLUCOSE Routine 12/07/2024 11:45 AM EDT Type 2 diabetes mellitus without complication, unspecified whether intermediate teacher insulin use ([facility]) HEPATIC FUNCTION PANEL Routine 8:42 AM EDT Type 2 diabetes mellitus without complication, unspecified whether usp insulin use ([facility]) LIPID PANEL WITH REFLEX TO DIRECT LDL Routine 11/30/2024 8:42 AM EDT Type 2 diabetes mellitus without complication, unspecified whether intermediate teacher insulin use ([facility]) CYCLIC CITRULLINATED PEPTIDE (CCP) AB (IGG) Routine 11/30/2024 8:42 AM EDT Arthralgia of both knees Myalgia Chronic midline low back pain, unspecified whether sciatica present SED RATE BY MODIFIED WESTERGREN Routine 11/30/2024 8:42 AM EDT Arthralgia of both knees Myalgia Chronic midline low back pain, unspecified whether sciatica present C-REACTIVE PROTEIN Routine 11/30/2024 8: 42 AM EDT Arthralgia of both knees Myalgia Chronic midline low back pain, unspecified whether sciatica present RHEUMATOID FACTOR Routine 11/30/2024 8:4 2 AM EDT Arthralgia of both knees Myalgia Chronic midline low back pain, unspecified whether sciatica present ROMMEL SCREEN, IFA, W/REFL TITER AND PATTERN Routine 11/30/2024 8:42 AM EDT Arthralgia of both knees Myalgia Chronic midline low back pain, unspecified whether sciatica present COMPREHENSIVE METABOLIC PANEL Routine 11/30/2024 8:42 AM EDT Arthralgia of both knees Myalgia Chronic midline low back pain, unspecified whether sciatica present XR ANKLE 3+ VIEWS LEFT Routine 2:34 AM EDT COMPREHENSIVE METABOLIC PANEL Routine 11/26/2024 12:58 AM EDT CBC WITH AUTO DIFFERENTIAL Routine 11/26/2024 12:58 AM EDT POCT ERICK-14 URINE DRUG SCREEN Routine 11/15/2024 9:33 AM EDT Anxiety ALBUMIN, RANDOM URINE W/CREATININE Routine 08/26/2023 1:26 PM EDT Type 2 diabetes mellitus without complication, unspecified whether usp insulin use (CMS/HCC) HEPATITIS C AB W/REFL [...] * (ABNORMAL) POCT glycosylated hemoglobin (Hgb A1c) (12/07/2024 11:46 AM EDT) Hemoglobin A1C 6.3(A) 4.0 - 5.7 % QC Media Lot # [id number] Lot# Expiration Date Blood Capillary blood specimen / Unknown 12/07/2024 11:46 AM EDT Jojo Gilmore MD POINT OF CARE TEST ENTER/EDIT OR DERABLES Final Result * POCT glucose manually resulted (12/07/2024 11:45 AM EDT) Glucose Blood, POC 137 60 - 200 mg/dL QC Media Lot # [id number] Lot# Expiration Date Blood Capillary blood specimen / Unknown 12/07/2024 11:45 AM EDT Jojo Gilmore MD POINT OF CARE TEST ENTER/EDIT OR DERABLES Final Result * (ABNORMAL) Lipid Panel with Reflex to Direct LDL (11/30/2024 8:42 AM EDT) Triglycerides 134 <150 mg/dL [facility] Comment:Desirable Triglyceri de: less than 150 mg/dLBorderline High Triglyceride 150-199 mg/dLHigh Triglyceride: 200-499 mg/dLVery High Triglyceride: greater than or equal to 5OO mg/dL Cholesterol 183 <200 mg/dL [facility] Comment:Desirable Cholestero l: less than 200 mg/dLBorderline High Cholesterol: 200-239 mg/dLHigh Cholesterol: greater than 239 mg/dL LDL Cholesterol Calculated 119(H) <100 mg/dL [facility] Comment:Desirable LDL: less than 100 mg/dLNear Optimal/Above Optimal LDL: 110- 129 mg/dLBorderline High LDL: 130-159 mg/dLHigh LDL: 160-189 mg/dLVery High LDL: greater than or equal to 190 mg/dL HDL Cholesterol 38(L) >40 mg/dL [facility] Comment:Desirable HDL: great er than 40 mg/dL Note: This HDL assay may give artificially low results in patients with liver disease. Blood 11/30/2024 8:42 AM EDT 11/30/2024 11:23 AM EDT Jojo Gilmore MD LAB BLOOD ORDERABLES Final Resul t [facility] [address] [place] [phone] * Cyclic Citrullinated Peptide (CCP) Antibody (IgG) (11/30/2024 8:42 AM EDT) Cyclic Citrullinated Peptide <16 UNITS [facility] Comment:Reference RangeNegat eugenio: <20Weak Positive: 20-39Moderate Positive: 40-59Strong Positive: >59THIS TEST WAS PERFORMED AT:[facility] [place] [phone] ARRIOLA MD Blood Venous blood specimen / Unknown 11/30/2024 8:42 AM EDT 11/30/2024 11:23 AM EDT us Jojo Gilmore MD LAB BLOOD ORDERABLES Final Resul t Performing Organization Address [facility] Co de Phone Number [facility] [address] [place] [phone] * Sed Rate by Modified Yandy (11/30/2024 8:42 AM EDT) Erythrocyte Sedimentation Rate 7 0 - 15 MM/HR [facility] Comment:Patients with polycy themia and many hemoglobin abnormalitiesmay have depressed sed rates whereas patients with anemiamay have elevated sed rates. Blood Venous blood specimen / Unknown 11/30/2024 8:42 AM EDT 11/30/2024 11:23 AM EDT us Jojo Gilmore MD LAB BLOOD ORDERABLES Final Resul t Performing Organization Address [facility] Co de Phone Number [facility] [address] [place] [phone] * Rheumatoid Factor (11/30/2024 8:42 AM EDT) Rheumatoid Factor <13.0 <15.0 IU/mL [facility] Blood Venous blood specimen / Unknown 11/30/2024 8:42 AM EDT 11/30/2024 11:23 AM EDT us Jojo Gilmore MD LAB BLOOD ORDERABLES Final Resul t Performing Organization Address [facility]/ZIP Co de Phone Number [facility] [address] [place] [address] [place] [phone] * (ABNORMAL) C-reactive Protein (11/30/2024 8:42 AM EDT) C Reactive Protein 0.74(H) < or = 0.50 mg/dL [facility] Blood Venous blood specimen / Unknown 11/30/2024 8:42 AM EDT 11/30/2024 11:23 AM EDT us Jojo Gilmore MD LAB BLOOD ORDERABLES Final Resul t [facility] [address] [place] [phone] * ROMMEL Screen,IFA, with Reflex to Titer and Pattern (11/30/2024 8:42 AM EDT) Anti Nuclear Antibody Screen NEGATIVE NEGATIVE [facility] Comment:ROMMEL IFA is a first l ine screen for detecting thepresence of up to approximately 150 autoantibodies invarious autoimmune diseases. A negative ROMMEL IFA resultsuggests an ROMMEL-associated autoimmune disease is notpresent at this time, but is not definitive. If thereis high clinical suspicion for Sjogren's syndrome,testing for anti-SS-A/Ro antibody should be considered.Anti-Hyacinth-1 antibody should be considered for clinicallysuspected inflammatory myopathies.AC-0: NegativeInternational Consensus on ROMMEL Patterns(https://doi.org/10.1515/xwdi-6519-8393)For additional information, please refer tohttp://education.[employer]/faq/MOY331(This link is being provided for informational/educational purposes only.)THIS TEST WAS PERFORMED AT:[facility] [place] [phone] ARRIOLA MD ROMMEL Titer TNP [facility] ROMMEL Pattern [facility] ROM[facility]EL TITER 2 (REF LAB) [facility] ROM[facility]EL Pattern 2 [facility] ROM[facility]EL TITER 3 [facility] ROMMEL PATTERN 3 TNP [facility] Blood Venous blood specimen / Unknown 11/30/2024 8:42 AM EDT 11/30/2024 11:23 AM EDT Jojo Gilmore MD LAB BLOOD ORDERABLES Final Resul t Performing Organization Address [facility]/ZIP Co de Phone Number [facility] [address] [place] [phone] * Hepatic Function Panel (11/30/2024 8:42 AM EDT) Bilirubin, Direct 0.3 0.0 - 0.5 mg/dL [facility] Blood Venous blood specimen / Unknown 11/30/2024 8:42 AM EDT 11/30/2024 11:23 AM EDT Jojo Gilmore MD LAB BLOOD ORDERABLES Final Resul t Performing Organization Address [facility] Co de Phone Number [facility] [address] [place] [phone] * (ABNORMAL) Comprehensive Metabolic Panel (11/30/2024 8:42 AM EDT) Only the most recent of2 resultswithin the time period is included. Sodium 140 135 - 145 mmol/L [facility] Potassium 3.6 3.3 - 5.1 mmol/L [facility] Chloride 107 96 - 108 mmol/L [facility] Carbon Dioxide 24 22 - 29 mmol/L [facility] Anion Gap 13 12 - 20 [facility] Urea Nitrogen (BUN) 17(H) 9 - 16 mg/dL [facility] Creatinine, Serum 0.87 0.5 - 1.4 mg/dL [facility] Estimated Glomerular Filt Rate >60 [facility] Comment:Chronic Kidney Disea se: Estimated GFR < 60 mL/min/1.04o9Uqsrxt Kidney Disease: Estimated GFR < 15 mL/min/1.73m2 Glucose 121(H) 60 - 115 mg/dL [facility] Calcium 9.3 8.4 - 10.2 mg/dL [facility] Bilirubin, Total 0.6 0.0 - 1.0 mg/dL [facility] Aspartate Amino Transferase 53(H) 5 - 37 U/L [facility] Alanine Aminotransferase 134(H) 0 - 40 U/L [facility] Total Protein 6.5 6.5 - 8.0 g/dL [facility] Albumin Level 4.2 3.5 - 5.0 g/dL [facility] Alkaline Phosphatase 51 39 - 117 U/L [facility] Blood Venous blood specimen / Unknown 11/30/2024 8:42 AM EDT 11/30/2024 11:23 AM EDT Jojo Gilmore MD LAB BLOOD ORDERABLES Final Resul t Performing Organization Address City/State/[facility] Co de Phone Number [facility] [address] [place] [phone] * XR Ankle 3+ Views Left (11/26/2024 2:34 AM EDT) Anatomical Region Laterality Modality Lower Extremities, Ankle Left Radiogr aphic Imaging 11/26/2024 2:34 AM EDT Narrative 11/26/2024 2:37 AM EDT [address] [address] XRay Report Signed Patient: Tomy King MR#: [id number] : 1975 Acct:[id number] Age/Sex: 48 / M ADM Date: 11/26/24 Loc: HO.ED Attending Dr: Ordering Physician: Federico Grover MD Date of Service: 11/26/24 Procedure(s): XR ankle LT min 3V Accession Number(s): [id number] cc: Jojo Gilmore MD; Federico Grover MD CLINICAL HISTORY: fall LEFT ANKLE X-RAYS COMPARISON: None provided. FINDINGS: A total of 3 views of the left ankle were obtained. Exam is mildly limited due to patient positioning. No evidence of an acute fracture or dislocation. No metallic foreign body. IMPRESSION: 1. No acute disease. This document has been electronically signed by: Tomy Elliott M.D. on 11/26/2024 02:34:43 Dictated By: Tomy Elliott MD Signed By: <Electronically signed by Tomy Elliott MD in OV> 11/26/24235 DD/ 3 TD/TT: 11/26/24233 Suspect Artist: Procedure Note Donotuseinterpreter, Image - 11/26/[address] [address] XRay Report Signed Patient: Tomy KingMR#: [id number] : 1975Acct:[id number] Age/Sex: 48 / MADM Date: 11/26/24 Loc: .ED Attending Dr: Ordering Physician: Federico Grover MD Date of Service: 11/26/24 Procedure(s): XR ankle LT min 3V Accession Number(s): [id number] cc: Jojo Gilmore MD; Federico Grover MD CLINICAL HISTORY: fall LEFT ANKLE X-RAYS COMPARISON: None provided. FINDINGS: A total of 3 views of the left ankle were obtained. Exam is mildly limited due to patient positioning. No evidence of an acute fracture or dislocation. No metallic foreign body. IMPRESSION: 1. No acute disease. This document has been electronically signed by: Tomy Elliott M.D. on 11/26/2024 02:34:43 Dictated By: Tomy Elliott MD Signed By: <Electronically signed by Tomy Elliott MD in OV> 11/26/24235 DD/ 3 TD/TT: 11/26/24233 Suspect Artist: [facility] External Provider IMG XR PROCEDURES Final Result * (ABNORMAL) CBC auto differential (11/26/2024 12:58 AM EDT) White Blood Count 4.6(L) 4.8 - 10.8 X10*3/uL [facility] Red Blood Count 4.80 4.60 - 5.80 X10*6/uL [facility] Hemoglobin 14.6 14.0 - 18.0 g/dl [facility] Hematocrit 41.4(L) 42.0 - 52.0 % [facility] Mean Corpuscular Volume 86.3 80.0 - 98.0 fL [facility] Mean Corpuscular Hemoglobin 30.4 27.0 - 33.0 pg [facility] Mean Corpuscular HGB Conc 35.3 31.0 - 36.0 g/dl [facility] Red Cell Distribution Width 13.2 11.0 - 16.0 % [facility] Platelet Count 180 160 - 400 X10*3/uL [facility] Mean Platelet Volume 10.0 9.4 - 12.4 fL [facility] Neutrophils Percent Auto 61.7 45 - 73 % [facility] Imm Gran Pct Auto 0.2 0.0 - 0.4 % [facility] Lymphocytes Percent Auto 23.5 20 - 40 % [facility] Monocytes Percent Auto 9.7 2 - 11 % [facility] Eosinophils Percent Auto 4.2(H) 0 - 4 % [facility] Basophils Percent Auto 0.7 0 - 2 % [facility] NRBC Pct Auto 0.0 0.0 - 0.2 /100WBC [facility] Neutrophils Absolute Auto 2.8 2.0 - 8.3 x10*3/uL [facility] Imm Gran Abs Auto 0.01 0.00 - 0.03 X10*3/uL [facility] Lymphocytes Absolute Auto 1.1(L) 1.2 - 4.9 X10*3/uL [facility] Monocytes Absolute Auto 0.4 0.1 - 1.2 X10*3/uL [facility] Eosinophils Absolute Auto 0.2 0.0 - 0.4 X10*3/uL [facility] Basophils Absolute Auto 0.0 0.0 - 0.2 X10*3/uL [facility] NRBC Abs Auto 0.000 0.0 - 0.012 X10*3/uL [facility] 11/26/2024 12:5 8 AM EDT 11/26/2024 1:01 AM EDT Generic External Data Provider LAB BLOOD ORDERAB LES Final Result [facility] [address] [place] [phone] * POCT ERICK-14 Urine Drug Screen (11/15/2024 9:33 AM EDT) THC Negative Cocaine Screen, Urine Negative Opiate Screen, Urine Negative Methamphetamine Screen Urine Negative Amphetamine Screen, Urine Negative Benzodiazepines Screen, Urine Negative Barbiturate Screen, Urine Negative Methadone Screen, Urine Negative Buprenophine Screen, Urine Negative TCA, Urine Negative MDMA Urine Negative ng/mL Oxycodone Screen, Urine Negative Phencyclidine (PCP), Urine Negative Propoxyphene, Urine Negative Fentanyl, Urine Negative Urine Urine specimen obtained by clean catch procedure / Unknown 11/15/2024 9:33 AM EDT Narrative Santa Wade RN - 11/15/2024 9:33 AM EDT Lot# [id number] Exp: 04-06-26 Jojo Gilmore MD POINT OF CARE TEST ENTER/EDIT OR DERABLES Edited Result - Final * Albumin, Random Urine W/Creatinine (08/26/2023 1:26 PM EDT) Creatinine, Urine 172.30 mg/dL [facility] Microalbumin Urine 6.0 mg/L [facility] Microalbum Creatinine Ratio Ur 3.4 <30 ug/mg cr [facility] Comment:Albumin/Creatinine R atio Reference Ranges: Normal: < 30 ug/mg creatinine Microalbuminuria: 30 - 300 ug/mg creatinineClinical Albuminuria: > 300 ug/mg creatinine Urine 08/26/2023 1:26 PM EDT 08/26/2023 4:31 PM EDT Jojo Gilmore MD LAB URINE ORDERABLES Final Resul t Performing Organization Address [facility]/ZIP Co de Phone Number [facility] [address] [place] [phone] * Hepatitis C Antibody with Reflex to HCV, RNA, Quantitative, Real-Time PCR (08/26/2023 1:20 PM EDT) Hepatitis C Antibody Nonreactive Nonreactive [facility] Comment:Antibodies to HCV no t detected; does not exclude early acuteHCV infection. Blood Venous blood specimen / Unknown 08/26/2023 1:20 PM EDT 08/26/2023 3:59 PM EDT Jojo Gilmore MD LAB BLOOD ORDERABLES Final Resul t Performing Organization Address [facility] Co de Phone Number [facility] [address] [place] [phone] * HIV-1/2 Antigen and Antibodies, Fourth Generation, with Reflexes (08/26/2023 1:20 PM EDT) HIV AB/AG Nonreactive Nonreactive [facility] Comment:HIV-1 p24 Ag and/or HIV-1/HIV-2 Ab not detected.A test result that is nonreactive does not exclude thepossibility of exposure to or infection with HIV-1 and/orHIV-2. Nonreactive results in this assay for individualswith prior exposure to HIV-1 and/or HIV-2 may be due toantigen and antibody levels that are below the limit ofdetection of this assay.The [employer] HIV Ag/Ab Combo assay result andsupplemental assay results should be interpreted inconjunction with the patient's clinical presentation,history and other laboratory results. If the results areinconsistent with clinical evidence, additional testing issuggested to confirm the result. Blood Venous blood specimen / Unknown 08/26/2023 1:20 PM EDT 08/26/2023 3:59 PM EDT Jojo Gilmore MD LAB BLOOD ORDERABLES Final Resul t [facility] [address] [place] [phone] * Colonoscopy (03/03/2022) Colonoscopy Normal Normal 03/03/2022 [facility] Unassigned Pcp HEALTH MAINTENANCE Edited Result - Final from Last 3 Months or Most Recently Relevant to Health Maintenance Insurance [facility] Care Teams [employer] Relationship Specialty Start Date End Date Jojo Gilmore MD [address] [place] [phone] PCP - General Family Medicine 12/19/18
--- OUTSIDE RECORDS SUMMARY | 2025-02-12 18:51 | XMS_ITS | Encounter Summary ---
Author Organization [employer] Address [address] [facility] 7t [place] [address] Care Team Providers Care Feather Sawyer Name Role Phone Jojo Jaramillo MD Primary Care Provider [phone] Reason for Visit * Reason Comments Med Refill Encounter Details Date Type Department Care Team (Late st Contact Info) Description 12/06/2022 Refill [facility] MEDICINE [address] [place], [place] [phone] Dima Castillo MD [address] [place] [address] Social History Tobacco Use Types Packs/Day Years [...] Description 03/07/2025 9:30 AM EDT Clinical Support [facility] CHC MED & PEDS [address] [place] [address] Santa Wade, DAGOBERTO [address] [place] [address] 05/07/2025 9:00 AM EST Office Visit [facility] OPTOMETRY [address] [place], [place] [phone] Robin, Jennifer, OD [address] [place], [place] [phone] documented as of this encounter Visit Diagnoses Not on filedocumented in this encounter Additional Health Concerns Assessment Noted Time PHQ-9 Depression Total Score: 5 08/27/19 23 9:15 AM EDT documented as of this encounter Care Teams Feather Sawyer Relationship Specialty Start Date End Date Jojo Jaramillo MD [address] [place] [address] PCP - General Family Medicine 12/19/18 documented as of this encounter
--- OUTSIDE RECORDS SUMMARY | 2025-02-12 18:51 | XMS_ITS | Encounter Summary ---
Author Organization [facility] Address [address] [facility] 7t [place] [address] Care Team Providers Care Roll Forming Machine Set Up Operator Name Role Phone Jojo Jaramillo MD Primary Care Provider [phone] Encounter Details Date Type Department Care Team (Latest Contact Info) Description 07/21/2021 Abstract [facility] CONVERSIONS Dental, Provider, DDS Social History [...] Description 03/07/2025 9:30 AM EDT Clinical Support [facility] CHC MED & PEDS [address] [place] [address] Santa Wade, RN [address] [place] [address] 05/07/2025 9:00 AM EST Office Visit [facility] OPTOMETRY [address] [place] [address] Robin, Jennifer, OD [address] [place] [address] documented as of this encounter Visit Diagnoses Not on filedocumented in this encounter Care Teams Roll Forming Machine Set Up Operator Relationship Specialty Start Date End Date Jojo Jaramillo MD [address] [place] [address] PCP - General Family Medicine 12/19/18 documented as of this encounter
--- OUTSIDE RECORDS SUMMARY | 2025-02-12 18:51 | XMS_ITS | Encounter Summary ---
Author Organization [employer] Address [address] [facility] 7t [place] [address] Care Team Providers Care Expressive Art Therapist Name Role Phone Jojo Jaramillo MD Primary Care Provider Encounter Details Date Type Department Care Team (Late st Contact Info) Description 10/09/2022 Orders Only [facility] MEDICINE [address] [place] [address] Norma Ram LPN Social History Tobacco Use [...] Description 03/07/2025 9:30 AM EDT Clinical Support [facility] CHC MED & PEDS [address] [place] [address] Santa Wade, DAGOBERTO [address] [place] [address] 05/07/2025 9:00 AM EST Office Visit [facility] OPTOMETRY [address] [place] [address] Jennifer Kelly, OD [address] [place] [address] documented as of this encounter Visit Diagnoses Not on filedocumented in this encounter Additional Health Concerns Assessment Noted Time PHQ-9 Depression Total Score: 5 08/27/19 23 9:15 AM EDT documented as of this encounter Care Teams Expressive Art Therapist Relationship Specialty Start Date End Date Jojo Jaramillo MD [address] [place] [address] PCP - General Family Medicine 12/19/18 documented as of this encounter
--- NOTE | 2025-02-12 18:56 | ED.PSYCH ---
HPI - Psych General Chief Complaint: Psychiatric Symptoms Stated Complaint: crisis, cooperative Time Seen by Provider: 02/12/25 16:02 History of Present Illness HPI Narrative: Patient is a 49-year-old male presented today with having plans the hang himself. Patient felt very depressed upset. Denies using any recreational drugs. Did not actually carry out any specific axis. Has no guns in the house. Related Data Home Medications ?Medication ?Instructions ?Recorded ?Confirmed lisinopril 20 mg tablet 20 mg PO DAILY 01/30/22 09/22/23 cyclobenzaprine 5 mg tablet 1 tab PO DAILY PRN Muscle Spasm 02/26/22 09/22/23 hydroxyzine pamoate 25 mg capsule 25 mg PO BEDTIME 02/26/22 09/22/23 pyridoxine (vitamin B6) 100 mg 100 mg PO DAILY 02/26/22 09/22/23 tablet (Vitamin B-6) escitalopram oxalate 5 mg tablet 5 mg PO DAILY 11/06/22 09/22/23 lorazepam 0.5 mg tablet 0.5 mg PO BID PRN 11/06/22 09/22/23 trazodone 50 mg tablet 50 mg PO BEDTIME PRN insomnia 11/06/22 09/22/23 clonazepam 1 mg tablet 1 mg PO TID PRN 09/01/23 09/22/23 escitalopram oxalate 10 mg tablet 10 mg PO DAILY 09/01/23 09/22/23 meloxicam 7.5 mg tablet 7.5 mg PO BID 09/01/23 09/22/23 Previous Rx's ?Medication ?Instructions ?Recorded tadalafil 5 mg tablet 5 mg PO DAILY PRN sexual activity 03/04/21 90 days #90 tabs metformin 500 mg tablet 500 mg PO DAILY #10 tabs 03/16/22 metformin 500 mg tablet,extended 500 mg PO DAILY #30 tabs 03/16/22 release 24 hr celecoxib 200 mg capsule (Celebrex) 200 mg PO BID 30 days #60 caps 11/09/22 prednisone 20 mg tablet 40 mg (2 x 20 mg) PO DAILY #8 tabs 08/25/23 cephalexin 500 mg capsule 500 mg PO QID 10 days #40 caps 08/27/23 doxycycline hyclate 100 mg tablet 100 mg PO BID #20 tabs 08/27/23 morphine 15 mg immediate release 15 mg PO Q8H PRN pain #15 tabs 08/27/23 tablet silver sulfadiazine 1 % topical 1 appl topical BID #85 grams 08/27/23 cream (Silvadene) docusate sodium 100 mg capsule 100 mg PO BID #14 caps 08/30/23 polyethylene glycol 3350 17 17 g PO DAILY #119 grams 08/30/23 gram/dose oral powder (ClearLax) sennosides 8.6 mg tablet (senna) 8.6 mg PO BID PRN constipation #14 08/30/23 tabs methocarbamol 750 mg tablet 1,500 mg (2 x 750 mg) PO Q8H PRN 09/19/24 pain, moderate #20 tabs methylprednisolone 4 mg tablets in 4 mg PO QAM #21 ea 09/19/24 a dose pack (Medrol (Elia)) oxycodone 5 mg tablet 5 mg PO Q6H PRN pain #20 tabs 11/26/24 doxycycline hyclate 100 mg tablet 100 mg PO BID #20 tabs 12/21/24 diclofenac sodium 1 % topical gel 2 g topical QID #100 grams 01/24/25 (Voltaren Arthritis Pain) morphine 15 mg immediate release 15 mg PO Q6H PRN severe pain 01/24/25 tablet (scale score 7-10) #12 tabs Allergies Allergy/AdvReac Type Severity Reaction Status Date / Time No Known Allergies (No Known Allergy Verified 02/12/25 16:32 Allergies*) Review of Systems Review of Systems: Positive suicidal thoughts Yes all other systems are reviewed and are negative PMFSH Past Medical History Attestation statement: The following information was validated with the patient. Medical History Anxiety Back pain Elevated cholesterol HTN (hypertension) Diabetes Surgical History H/O colonoscopy Hx of cystoscopy Hx of anterior cruciate ligament surgery Social History Social History Alcohol intake: never Patient Tobacco Use Status: Never used Tobacco Smoked in Last 30 Days: Yes Use of substances other than those prescribed or required for medical reasons: No Advance Directives: No Advance Directives Information Provided: No Do you have a plan to hurt others: No Plan Physical Exam Exam: Exam: Appearance: Alert. Oriented X3. No acute distress. Eyes: Pupils equal, round and reactive to light. ENT: Pharynx normal. Neck: Normal inspection. Neck supple. No lymph nodes noted. No crepitus CVS: Normal heart rate and rhythm. Pulses normal. Normal S1 and S2 Respiratory: No respiratory distress. Breath sounds normal. No Wheezing. No rales Abdomen: Soft and nontender. No rigidity. No distention. good BS x4 Skin: Skin warm and dry. Normal skin color. Normal skin turgor. Extremities: No lower extremity edema. Neurovascular intact to all extremities. No Lacerations. No Rash Neuro: Oriented X 3. No motor deficit. No sensory deficit. Moving all extermities. No slurred speech. Cranial nerves grossly intact Vital Signs: Vital Signs: Last Vital Signs Temp 99 F 02/12/25 16:36 Pulse 99 02/12/25 16:36 Resp 16 02/12/25 16:36 BP 145/95 H 02/12/25 16:36 Pulse Ox 98 02/12/25 16:36 O2 Del Method Room Air 02/12/25 16:36 BMI result Body Mass Index 25.7 Medical Decision Making Medical Decision Making [facility] Narrative: 49 years old positive suicidal thoughts feeling very depressed patient was evaluated by crisis team. [place] patient should be admitted. Differential Diagnosis Differential Diagnoses: The differential diagnosis associated with the presentation includes Depression, anxiety Admission/Observation Consideration of admission/observation: Escalation of care including admission/observation considered Consult Healthcare Provider Management of the patient was discussed with: Financial Services Intern (Care team was consulted) Lab Data [facility] Lab Attestation statement: I reviewed the patient's lab results. 02/12/25 16:58 02/12/25 16:58 Labs: Lab Results 02/12/25 Range/Units 16:58 WBC 4.1 L (4.8-10.8) X10*3/uL RBC 3.99 L (4.60-5.80) X10*6/uL Hgb 12.1 L (14.0-18.0) g/dl Hct 35.1 L (42.0-52.0) % MCV 88.0 (80.0-98.0) fL MCH 30.3 (27.0-33.0) pg MCHC 34.5 (31.0-36.0) g/dl RDW 13.9 (11.0-16.0) % Plt Count 154 L (160-400) X10*3/uL MPV 10.2 (9.4-12.4) fL Immature Gran % (Auto) 0.2 (0.0-0.4) % Neut % (Auto) 71.8 (45-73) % Lymph % (Auto) 18.3 L (20-40) % [place] % (Auto) 6.8 (2-11) % Eos % (Auto) 2.4 (0-4) % Baso % (Auto) 0.5 (0-2) % Lymph # (Auto) 0.8 L (1.2-4.9) X10*3/uL [place] # (Auto) 0.3 (0.1-1.2) X10*3/uL Eos # (Auto) 0.1 (0.0-0.4) X10*3/uL Baso # (Auto) 0.0 (0.0-0.2) X10*3/uL Abs Immat Gran (auto) 0.01 (0.00-0.03) X10*3/uL Absolute Neuts (auto) 2.9 (2.0-8.3) x10*3/uL Absolute Nucleated RBC 0.000 (0.0-0.012) X10*3/uL Nucleated RBC % (auto) 0.0 (0.0-0.2) /100WBC Sodium 146 H (135-145) mmol/L Potassium 3.5 (3.3-5.1) mmol/L Chloride 109 H (96-108) mmol/L Carbon Dioxide 30 H (22-29) mmol/L Anion Gap 11 L (12-20) BUN 7 L (9-16) mg/dL Creatinine 0.55 (0.5-1.4) mg/dL Estim Creat Clear Calc 136.0 Estimated GFR > 60 Random Glucose 153 H (60-115) mg/dL Calcium 9.1 D (8.4-10.2) mg/dL Total Bilirubin 0.5 (0.0-1.0) mg/dL AST 27 (5-37) U/L ALT 41 H (0-40) U/L Alkaline Phosphatase 47 (39-117) U/L Total Protein 6.0 L (6.5-8.0) g/dL Albumin 4.0 (3.5-5.0) g/dL Salicylates < 5.0 L (15-30) mg/dL Acetaminophen < 3 (<30) mcg/mL Ethyl Alcohol < 10 mg/dL COVID-19 (JESSICA) Negative (Negative) COVID-19 Clin Com See Note External Record Review External record reviewed: Outpatient record Chronic Conditions Depression Social Determinants Patient?s care significantly limited by Social Determinants of Health including: Problems related to primary support group and Unemployment Discharge Plan Discharge Clinical Impression: Depression Patient Disposition: Admitted As Inpatient Interventions: [place]-Suicide Risk Severity Scale Last Done: 02/12/25 16:41 Print Language: Croatian
--- NOTE | 2025-02-12 20:30 | MHC.EDTECH ---
t/w attempted to obtain UA sample from pt, pt stated he already went and doesnt want to go again. ADMISSIONS NOTIFIED. RN AWARE.
[2025-02-12 22:46] VITALS: BP 172/108; PULSE 88; RESP 18; TEMP 37.1; O2SAT 96
[2025-02-13] MEDS: Morphine Sulfate Immed Release 15 MG TABLET PO ×2 (00:54→08:44)
[2025-02-13 07:52] VITALS: BP 138/91; PULSE 84; RESP 18; TEMP 36.3; O2SAT 97
[2025-02-13 08:12] LABS: Appearance Urine Clear; Glucose Urine UA 500 mg/dL (Negative); PH 7.5 (5.0-9.0); Specific Gravity - Urine 1.015 (1.005-1.025)
[2025-02-13 08:21] LABS: Cannabinoid Screen Urine Not Detected (Not Detect)
[2025-02-13 08:45] VITALS: BP 138/91
[2025-02-13 11:21] VITALS: BP 139/94; PULSE 84; RESP 18; TEMP 37.1; O2SAT 97
[2025-02-13 11:25] VITALS: BMI 28.3
--- NOTE | 2025-02-13 12:19 | HO.PM.IMCN ---
History of Present Illness Data of Consult Service Date: 02/13/25 Primary Care Provider: Jojo Jaramillo MD [facility] Reason for consult: Left foot pain 49-year-old male with a past medical history of depression, lower back pain, arterial insufficiency, hypertension, hyperlipidemia, and diabetes as well as anxiety and depression presented to ED with plans to hang himself. Review labs in the ED did not reveal any abnormalities. Patient is being seen today for persistent left foot pain and inability to bear weight. Patient was seen in the ED initially and had a negative x-ray in December. He will return to the ED on 01/24 and underwent a negative foot x-ray as well as a negative duplex lower extremity artery scan. Per nursing he is wheelchair-bound, unable to bear weight on his foot. He has trace edema to the left foot, reports calf pain. Positive pedal pulses to both feet no obvious deformities. Foot is very tender to touch, patient guarding foot. He otherwise denies any shortness of breath, dizziness lightheadedness or any other concerning symptoms. Review of Systems Review of Systems: Denies any shortness of breath, chest pain, dizziness, lightheadedness, abdominal pain or discomfort, nausea vomiting or diarrhea. Positive left foot pain PMFSH Medical History (Updated 02/13/25 @ 13:01 by Gypsy Long DNP) Anxiety Back pain Elevated cholesterol HTN (hypertension) Diabetes Surgical History H/O colonoscopy Hx of cystoscopy Hx of anterior cruciate ligament surgery Social History Household Members: None Housing: Apartment Do you presently have visiting nurse or other home services: No Alcohol intake: never Patient Tobacco Use Status: Current everyday Tobacco user Tobacco use type: Cigarette Smoked in Last 30 Days: No Patient Interested in Nicotine Replacement: Yes Patient Given Instructions on How to Stop Smoking: No (interested in quitworks) Second Hand Smoke Exposure: No Use of substances other than those prescribed or required for medical reasons: No Have you been hit, kicked, punched, or otherwise hurt by someone within the past year? If so, by whom?: No Do you feel safe in your current relationship?: No Current Relationship Is there a partner from a previous relationship who is making you feel unsafe now?: No Are you made to feel afraid or neglected: No Spiritual Healthcare Practices: declined to discuss Nondenominational Healthcare Practices: declined to discuss Cultural Healthcare Practices: declined to discuss Advance Directives: No Advance Directives Information Provided: No Do you have a plan to hurt others: No Plan Recently lost weight without trying: Unsure How much weight loss: Unsure Eating poorly because of decreased appetite: Yes Nutrition screen score: 5 Nutrition Risks: Poor intake 0-25% >4 days Poor oral hygiene: No Meds Allergies Allergy/AdvReac Type Severity Reaction Status Date / Time No Known Allergies (No Known Allergy Verified 02/12/25 16:32 Allergies*) Active Medications: Current Medications Acetaminophen (Acetaminophen 325 Mg Tablet) 650 mg PO Q6H PRN PRN Reason: Headache/Pain, Scale 1-10 Al Hydroxide/Mg Hydroxide (Magnesium Hydrox/Alum Hydrox 30 Ml Oral.Susp) 30 ml PO Q6H PRN PRN Reason: Heartburn/Nausea Clonazepam (Clonazepam 1 Mg Tablet) 1 mg PO TID PRN PRN Reason: Anxiety Last Admin: 02/13/25 08:44 Dose: 1 mg Cyclobenzaprine HCl (Cyclobenzaprine Hcl 5 Mg Tablet) 5 mg PO DAILY PRN PRN Reason: Muscle Spasm Escitalopram Oxalate (Escitalopram Oxalate 5 Mg Tablet) 5 mg PO DAILY [facility] Last Admin: 02/13/25 08:44 Dose: 5 mg Escitalopram Oxalate (Escitalopram Oxalate 10 Mg Tablet) 10 mg PO DAILY [facility] Last Admin: 02/13/25 08:45 Dose: 10 mg Hydroxyzine HCl (Hydroxyzine Hcl 25 Mg Tablet) 25 mg PO BEDTIME [facility] Last Admin: 02/13/25 00:54 Dose: 25 mg Hydroxyzine HCl (Hydroxyzine Hcl 25 Mg Tablet) 25 mg PO Q6H PRN PRN Reason: mild anxiety Lisinopril (Lisinopril 20 Mg Tablet) 20 mg PO DAILY [facility]; Protocol Last Admin: 02/13/25 08:45 Dose: 20 mg Magnesium Hydroxide (Milk Of Magnesia 30 Ml Oral.Susp) 30 ml PO DAILY PRN PRN Reason: Constipation Metformin HCl (Metformin Hcl Er 500 Mg Tab.Er.24h) 500 mg PO DAILY@1700 WINIFRED Nicotine Polacrilex (Nicotine Polacrilex 2 Mg Gum) 2 mg BUCCAL Q2H PRN PRN Reason: Nicotine Cravings Olanzapine (Olanzapine 5 Mg Tablet) 5 mg PO BID PRN PRN Reason: agitation Trazodone HCl (Trazodone Hcl 50 Mg Tablet) 50 mg PO BEDTIME MRX1 PRN PRN Reason: Insomnia Home Medications ?Medication ?Instructions ?Recorded ?Confirmed ?Last Taken ?Type lisinopril 20 mg tablet 20 mg PO DAILY 01/30/22 02/12/25 01/30/22 History cyclobenzaprine 5 mg tablet 1 tab PO DAILY PRN Muscle Spasm 02/26/22 02/12/25 Unknown History hydroxyzine pamoate 25 mg capsule 25 mg PO BEDTIME 02/26/22 02/12/25 Unknown History pyridoxine (vitamin B6) 100 mg 100 mg PO DAILY 02/26/22 09/22/23 Unknown History tablet (Vitamin B-6) escitalopram oxalate 5 mg tablet 5 mg PO DAILY 11/06/22 02/12/25 Unknown History lorazepam 0.5 mg tablet 0.5 mg PO BID PRN Anxiety 11/06/22 02/12/25 Unknown History trazodone 50 mg tablet 50 mg PO BEDTIME PRN insomnia 11/06/22 09/22/23 Unknown History clonazepam 1 mg tablet 1 mg PO TID PRN Anxiety 09/01/23 02/12/25 Unknown History escitalopram oxalate 10 mg tablet 10 mg PO DAILY 09/01/23 02/12/25 Unknown History meloxicam 7.5 mg tablet 7.5 mg PO BID 09/01/23 09/22/23 Unknown History Physical Exam Vital Signs and Narrative: Vital Signs: Last Vital Signs Temp 98.8 F 02/13/25 11:21 Pulse 84 02/13/25 11:21 Resp 18 02/13/25 11:21 BP 139/94 H 02/13/25 11:21 Pulse Ox 97 02/13/25 11:21 O2 Del Method Room Air 02/13/25 11:21 BMI result Body Mass Index 28.3 CONST: Alert and oriented, in NAD. Well nourished HEENT: Normocephalic, atraumatic, MMM, Eyes clear, Neck supple RESP: Lungs clear, RRR even and regular HEART:,RRR, S1, S2. Trace edema to left foot. Positive pedal pulse GI:Abdomen Soft NT, ND. + BS times four :Deferred SKIN: Warm dry and intact, no visible lesions or rashes. NEURO:CN II-XII Intact bilaterally, Sensation intact. Speech clear PSYCH: Weepy Results Labs 02/12/25 16:58 02/12/25 16:58 Labs: Laboratory Results - last 24 hr 02/12/25 02/13/25 16:58 08:03 MCV 88.0 MCH 30.3 MCHC 34.5 RDW 13.9 Plt Count 154 L MPV 10.2 Immature Gran % (Auto) 0.2 Neut % (Auto) 71.8 Lymph % (Auto) 18.3 L [place] % (Auto) 6.8 Eos % (Auto) 2.4 Baso % (Auto) 0.5 Lymph # (Auto) 0.8 L [place] # (Auto) 0.3 Eos # (Auto) 0.1 Baso # (Auto) 0.0 Abs Immat Gran (auto) 0.01 Absolute Neuts (auto) 2.9 Absolute Nucleated RBC 0.000 Nucleated RBC % (auto) 0.0 Anion Gap 11 L Estim Creat Clear Calc 136.0 Estimated GFR > 60 Random Glucose 153 H Calcium 9.1 D Total Bilirubin 0.5 AST 27 ALT 41 H Alkaline Phosphatase 47 Total Protein 6.0 L Albumin 4.0 Urine Color Yellow Urine Appearance Clear Urine pH 7.5 Ur Specific [place] 1.015 Urine Protein Negative Urine Glucose (UA) 500 H Urine Ketones Negative Urine Blood Negative Urine Nitrite Negative Ur Leukocyte Esterase Negative Salicylates < 5.0 L Urine Opiates Screen POSITIVE H Ur Buprenorphine Scrn Positive H Ur Oxycodone Screen Positive H Urine Methadone Screen Not Detected Urine Fentanyl Screen Not Detected Acetaminophen < 3 Ur Barbiturates Screen Not Detected Ur Phencyclidine Scrn Not Detected Ur Amphetamines Screen Not Detected U Benzodiazepines Scrn Not Detected Urine Cocaine Screen Not Detected U Marijuana (THC) Screen Not Detected Ethyl Alcohol < 10 COVID-19 (JESSICA) Negative COVID-19 Clin Com See Note Assessment and Plan (1) Left foot pain: Status: Acute (2) HTN (hypertension): Status: Acute Plan 49-year-old male with past medical history as listed above, presented to the ED with suicidal ideation, now admitted to inpatient psych for further care. Patient is being seen for ongoing left foot pain and inability to bear weight. Depression/suicidal ideation Treatment per psychiatric team Left foot pain We will x-ray to rule out fracture, we will also check venous ultrasound to rule out DVT and uric acid level. Patient has no leukocytosis, continues to guard foot and non weightbear. Patient is in a wheelchair. Foot exam unremarkable except for guarding and significant tenderness with any palpation. He is afebrile Type 2 diabetes Continue metformin Hypertension Continue lisinopril Blood pressure slightly elevated, patient is in pain Thank you for allowing me to participate in the care of this patient. Will follow as needed. Please reconsult of any acute concerns or issues arise
--- NOTE | 2025-02-13 12:34 | PC.ADMIT ---
Tomy is a 49 year old bilingual male admitted on a CV from the Pod for anxiety, depression and SI. He reports that he has been feeling suicidal for the past two months after an accident due to unresolved foot pain. Per the crisis report he had a plan and intent to hang himself but that he could not follow through with it. On admission he is calm and cooperative, very tearful. States that he has been having auditory hallucinations telling him that he is nobody and that he is worthless, he states that at times the hallucinations are command in nature telling him to hurt himself. He denies intent to follow those commands, but that he does not want to live anymore. He states that he his family left him following the accident that he had, stating that he fell and dropped two cases of water on his foot. He has been feeling suicidal since then due to the pain. He reports that he has no outpatient providers, his last psychiatric admission was years ago in [place] after his mother and reports that he had been on seroquel in the past which he found helpful. He has a medical history of non-insulin dependant diabetes and hypertension, he reports being compliant with his medications. Tomy denies substance use, states his last use was two months ago. Tox screen was positive for opiates, buprenorphine and oxycodone, he had been receiving morphine for his foot pain while in the pod. He was placed on 5 minute checks due to wheelchair use.
[2025-02-13 13:33] LABS: Uric Acid 3.4 mg/dL (3.4-7.0)
--- NOTE | 2025-02-13 15:42 | PM.EVENT ---
Event Note Date of Service: 02/13/25 Event Note: Patient with left foot pain, ultrasound was negative for DVT. X-ray demonstrates suspected erosive changes involving the 2nd 3rd 4th and 5th metatarsal heads with possible mild. Osteitis involving the lateral base of the 2nd proximal flange suspicion of inflammatory arthropathy. Has no leukocytosis, no fever, no redness warmth or swelling to his foot, no tachycardia. Low suspicion for infectious process. We will treat with Naprosyn b.i.d. and prednisone 40 mg and re-evaluate patient. Time Spent With Patient Time: Total time managing care of this patient today ____ minutes.
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
[2025-02-13 20:00] VITALS: BP 140/82; PULSE 85; RESP 18; TEMP 37.3; O2SAT 93
[2025-02-13 20:54] LABS: Glucose, Whole Blood 149 mg/dL (60-115)
[2025-02-14 07:59] LABS: Glucose, Whole Blood 82 mg/dL (60-115)
--- NOTE | 2025-02-14 08:15 | HO.PM.IMPN ---
Subjective Subjective Date of Service: 02/14/25 Interval History: Patient was seen and examined, reports little relief from prednisone and Naprosyn from yesterday. His ESR and CRP within normal limits. Rheumatoid factor within normal limits, ROMMEL screen negative done in November. X-ray reviewed by orthopedic DAVID Calhoun who reports fracture at Base of the second MTP. Continues to use WC on unit. Patient with mild swelling, Strong PP. No redness or warmth to indicate infectious process. No leukocytosis, no fever. Review of Systems Denies any shortness of breath, chest pain, dizziness, lightheadedness, abdominal pain or discomfort, nausea vomiting or diarrhea. + left foot pain. Physical Exam Exam: Exam: CONST: Alert and oriented, in NAD. Well nourished HEENT: Normocephalic, atraumatic, MMM, Eyes clear, Neck supple RESP: Lungs clear, RRR even and regular HEART:,RRR, S1, S2. Trace edema to left foot. Positive pedal pulse. No redness, warmth or swelling. GI:Abdomen Soft NT, ND. + BS times four :Deferred SKIN: Warm dry and intact, no visible lesions or rashes. NEURO:CN II-XII Intact bilaterally, Sensation intact. Speech clear PSYCH: Weepy Vital Signs: Vital Signs: Last Vital Signs Temp 99.2 F 02/13/25 20:00 Pulse 85 02/13/25 20:00 Resp 18 02/13/25 20:00 BP 140/82 H 02/13/25 20:00 Pulse Ox 93 02/13/25 20:00 O2 Del Method Room Air 02/13/25 20:00 BMI result Body Mass Index 28.3 Objective Data Active Medications Acetaminophen (Acetaminophen 325 Mg Tablet) 650 mg PO Q6H PRN PRN Reason: Headache/Pain, Scale 1-10 Last Admin: 02/13/25 21:43 Dose: 650 mg Documented By: LINDA Al Hydroxide/Mg Hydroxide (Magnesium Hydrox/Alum Hydrox 30 Ml Oral.Susp) 30 ml PO Q6H PRN PRN Reason: Heartburn/Nausea Clonazepam (Clonazepam 1 Mg Tablet) 1 mg PO TID PRN PRN Reason: Anxiety Last Admin: 02/13/25 21:42 Dose: 1 mg Documented By: LINDA Cyclobenzaprine HCl (Cyclobenzaprine Hcl 5 Mg Tablet) 5 mg PO TID PRN PRN Reason: Muscle Spasm Last Admin: 02/13/25 21:43 Dose: 5 mg Documented By: LINDA Dextrose (Dextrose 50 % 25 Gm/50 Ml Syringe) 25 gm IVPUSH Q15M PRN; Protocol PRN Reason: per Hypoglycemia Standing Ord. Escitalopram Oxalate (Escitalopram Oxalate 5 Mg Tablet) 5 mg PO DAILY [facility] Last Admin: 02/13/25 08:44 Dose: 5 mg Documented By: DOROTA Escitalopram Oxalate (Escitalopram Oxalate 10 Mg Tablet) 10 mg PO DAILY [facility] Last Admin: 02/13/25 08:45 Dose: 10 mg Documented By: DOROTA Gabapentin (Gabapentin 300 Mg Capsule) 300 mg PO TID [facility] Last Admin: 02/13/25 21:42 Dose: 300 mg Documented By: LINDA Glucose (Glucose Gel 15 Gm Gel..Gram.) 15 gm PO Q15M PRN; Protocol PRN Reason: per Hypoglycemia Standing Ord. Hydroxyzine HCl (Hydroxyzine Hcl 25 Mg Tablet) 25 mg PO BEDTIME [facility] Last Admin: 02/13/25 21:42 Dose: 25 mg Documented By: LINDA Hydroxyzine HCl (Hydroxyzine Hcl 25 Mg Tablet) 25 mg PO Q6H PRN PRN Reason: mild anxiety Insulin Human Lispro (Insulin Lispro 100 Unit/Ml 3 Ml Vial) 0 unit SUBCUT QIDACHS [facility]; Protocol Last Admin: 02/14/25 07:56 Dose: Not Given Documented By: JOSUE Non-Admin Reason: No Insulin Coverage Lisinopril (Lisinopril 20 Mg Tablet) 20 mg PO DAILY [facility]; Protocol Last Admin: 02/13/25 08:45 Dose: 20 mg Documented By: DOROTA Magnesium Hydroxide (Milk Of Magnesia 30 Ml Oral.Susp) 30 ml PO DAILY PRN PRN Reason: Constipation Metformin HCl (Metformin Hcl Er 500 Mg Tab.Er.24h) 500 mg PO DAILY@1700 [facility] Last Admin: 02/13/25 18:08 Dose: 500 mg Documented By: JAIME Naproxen (Naproxen 250 Mg Tablet) 250 mg PO BIDWM [facility] Last Admin: 02/13/25 18:08 Dose: 250 mg Documented By: JAIME Nicotine Polacrilex (Nicotine Polacrilex 2 Mg Gum) 2 mg BUCCAL Q2H PRN PRN Reason: Nicotine Cravings Olanzapine (Olanzapine 5 Mg Tablet) 5 mg PO BID PRN PRN Reason: agitation Quetiapine Fumarate (Quetiapine Fumarate 50 Mg Tablet) 50 mg PO BEDTIME [facility] Last Admin: 02/13/25 21:42 Dose: 50 mg Documented By: CASSIDYMINShireen Trazodone HCl (Trazodone Hcl 50 Mg Tablet) 50 mg PO BEDTIME MRX1 PRN PRN Reason: Insomnia Labs 02/12/25 16:58 02/14/25 09:15 Labs: Laboratory Results - last 24 hr 02/13/25 02/13/25 02/13/25 08:03 13:12 16:02 ESR 9 POC Glucose Uric Acid 3.4 C-Reactive Protein 0.13 Urine Opiates Screen POSITIVE H Ur Buprenorphine Scrn Positive H Ur Oxycodone Screen Positive H Urine Methadone Screen Not Detected Urine Fentanyl Screen Not Detected Ur Barbiturates Screen Not Detected Ur Phencyclidine Scrn Not Detected Ur Amphetamines Screen Not Detected U Benzodiazepines Scrn Not Detected Urine Cocaine Screen Not Detected U Marijuana (THC) Screen Not Detected Rheumatoid Factor < 13.0 02/13/25 02/14/25 20:44 07:55 ESR POC Glucose 149 H 82 Uric Acid C-Reactive Protein Urine Opiates Screen Ur Buprenorphine Scrn Ur Oxycodone Screen Urine Methadone Screen Urine Fentanyl Screen Ur Barbiturates Screen Ur Phencyclidine Scrn Ur Amphetamines Screen U Benzodiazepines Scrn Urine Cocaine Screen U Marijuana (THC) Screen Rheumatoid Factor Assessment and Plan (1) Fracture of left foot: Status: Acute Plan 49-year-old male with past medical history as listed above, presented to the ED with suicidal ideation, now admitted to inpatient psych for further care. Patient is being seen in follow up for left foot pain. Depression/suicidal ideation Treatment per psychiatric team Left foot fracture, base of second MTP US negative, inflammatory markers negative. No leukocytosis, no fever Reports minimal improvement with dose of prednisone and naproxen yesterday. Xrays reviewed by orthopedic DAVID Calhoun with recommendations for short boot or post op show and follow up with podiatry within one week. Appointment made with Dr. Thornton February 21, [id number] [facility] [phone] podiatry. Foot exam unremarkable except for guarding and significant tenderness with any palpation. He is afebrile DC prednisone. Continue Naproxen BID. Type 2 diabetes Continue metformin A1c 6.1. Well controlled. Hypertension Continue lisinopril Thank you for allowing me to participate in the care of this patient. Will follow as needed. Please reconsult of any acute concerns or issues arise Quality Stroke Does the patient have a stroke diagnosis?: No VTE Prior VTE?: No VTE Risk Level:: Medical - low VTE Device Contraindication: Treatment Not Indicated VTE Drug Contraindication: Treatment Not Indicated
[2025-02-14 08:19] VITALS: BP 128/73; PULSE 72; RESP 16; TEMP 37.1; O2SAT 96
[2025-02-14 09:47] LABS: Hemoglobin A1C 136.1807 umol/L; Total Hemoglobin (HGBA1C) 3186.1920 umol/L
[2025-02-14 10:09] LABS: Albumin Level 3.9 g/dL (3.5-5.0); Alkaline Phosphatase 39 U/L (39-117); Anion Gap 16 (12-20); Aspartate Amino Transferase 36 U/L (5-37); Blood Urea Nitrogen 12 mg/dL (9-16); Calcium 9.3 mg/dL (8.4-10.2); Carbon Dioxide 24 mmol/L (22-29); Chloride 108 mmol/L (96-108); Cholesterol 192 mg/dL (<200); Creatinine Clr Calc Pharmacy 140.0; Estimated Glomerular Filt Rate > 60; HDL Cholesterol 47 mg/dL (>40); Potassium 3.9 mmol/L (3.3-5.1); Sodium 144 mmol/L (135-145); Total Protein 6.2 g/dL (6.5-8.0); Triglycerides 117 mg/dL (<150)
[2025-02-14 10:17] LABS: Alanine Aminotransferase 44 U/L (0-40)
[2025-02-14 10:25] LABS: Free T4 (Free Thyroxine) 0.94 ng/dL (0.71-1.85); Thyroid Stimulating Hormone 0.20 uIU/mL (0.32-4.0)
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
[2025-02-14 17:01] LABS: Glucose, Whole Blood 130 mg/dL (60-115)
[2025-02-14 17:01] LABS: Glucose, Whole Blood 99 mg/dL (60-115)
[2025-02-14] MEDS: oxyCODONE HCl Immed Release 5 MG TABLET 10 MG PO (19:21)
[2025-02-14 19:55] VITALS: BP 127/75; PULSE 67; RESP 16; TEMP 36.7; O2SAT 97
[2025-02-14 20:55] LABS: Glucose, Whole Blood 107 mg/dL (60-115)
[2025-02-15 07:48] VITALS: BP 123/71; PULSE 61; RESP 18; TEMP 36.4; O2SAT 95
[2025-02-15 08:00] LABS: Glucose, Whole Blood 75 mg/dL (60-115)
[2025-02-15] MEDS: oxyCODONE HCl Immed Release 5 MG TABLET 10 MG PO ×2 (11:03→20:57)
[2025-02-15 11:52] LABS: Glucose, Whole Blood 176 mg/dL (60-115)
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
[2025-02-15 16:59] LABS: Glucose, Whole Blood 115 mg/dL (60-115)
[2025-02-15 19:50] VITALS: BP 114/71; PULSE 77; RESP 16; TEMP 36.6; O2SAT 99
[2025-02-15 20:41] LABS: Glucose, Whole Blood 120 mg/dL (60-115)
[2025-02-16 08:00] VITALS: BP 118/64; PULSE 66; RESP 18; TEMP 36.4; O2SAT 96
[2025-02-16 08:07] LABS: Glucose, Whole Blood 86 mg/dL (60-115)
[2025-02-16] MEDS: oxyCODONE HCl Immed Release 5 MG TABLET 10 MG PO ×3 (08:54→22:12)
[2025-02-16 11:52] LABS: Glucose, Whole Blood 121 mg/dL (60-115)
[2025-02-16 16:55] LABS: Glucose, Whole Blood 106 mg/dL (60-115)
[2025-02-16 19:25] VITALS: BP 128/72; PULSE 85; RESP 16; TEMP 37.2; O2SAT 97
[2025-02-16 21:19] LABS: Glucose, Whole Blood 116 mg/dL (60-115)
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
[2025-02-17] MEDS: oxyCODONE HCl Immed Release 5 MG TABLET 10 MG PO ×5 (04:58→23:15)
[2025-02-17 08:00] VITALS: BP 103/62; PULSE 70; RESP 16; TEMP 36.5; O2SAT 96
[2025-02-17 08:16] LABS: Glucose, Whole Blood 85 mg/dL (60-115)
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
[2025-02-17 12:01] LABS: Glucose, Whole Blood 145 mg/dL (60-115)
[2025-02-17 16:43] LABS: Glucose, Whole Blood 130 mg/dL (60-115)
[2025-02-17 19:44] VITALS: BP 115/50; PULSE 86; RESP 16; TEMP 36.6; O2SAT 98
[2025-02-17 20:24] LABS: Glucose, Whole Blood 124 mg/dL (60-115)
[2025-02-18] MEDS: oxyCODONE HCl Immed Release 5 MG TABLET 10 MG PO ×5 (06:24→22:59)
[2025-02-18 07:59] LABS: Glucose, Whole Blood 89 mg/dL (60-115)
[2025-02-18 08:00] VITALS: BP 107/64; PULSE 68; RESP 14; TEMP 36.6; O2SAT 97
[2025-02-18 12:02] LABS: Glucose, Whole Blood 140 mg/dL (60-115)
[2025-02-18 16:46] LABS: Glucose, Whole Blood 115 mg/dL (60-115)
[2025-02-18 20:00] VITALS: BP 112/58; PULSE 79; RESP 16; TEMP 36.8; O2SAT 97
[2025-02-18 20:33] LABS: Glucose, Whole Blood 125 mg/dL (60-115)
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
[2025-02-19] MEDS: oxyCODONE HCl Immed Release 5 MG TABLET 10 MG PO ×5 (04:58→22:19)
[2025-02-19 07:10] VITALS: BP 101/62; PULSE 84; RESP 20; TEMP 36.4; O2SAT 97
[2025-02-19 07:45] LABS: Glucose, Whole Blood 89 mg/dL (60-115)
[2025-02-19 09:02] VITALS: BP 101/62
[2025-02-19 09:23] LABS: Creatinine Clr Calc Pharmacy 150.2; Estimated Glomerular Filt Rate > 60
[2025-02-19 12:05] LABS: Glucose, Whole Blood 143 mg/dL (60-115)
[2025-02-19 17:18] LABS: Glucose, Whole Blood 146 mg/dL (60-115)
[2025-02-19 20:00] VITALS: BP 160/59; PULSE 79; RESP 18; TEMP 36.9; O2SAT 98
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
[2025-02-19 21:52] LABS: Glucose, Whole Blood 127 mg/dL (60-115)
[2025-02-20] MEDS: oxyCODONE HCl Immed Release 5 MG TABLET 10 MG PO ×4 (02:19→20:13)
[2025-02-20 08:09] LABS: Glucose, Whole Blood 102 mg/dL (60-115)
[2025-02-20 08:34] VITALS: BP 100/52; PULSE 67; RESP 16; TEMP 36.4; O2SAT 96
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
[2025-02-20 19:20] VITALS: BP 100/59; PULSE 97; TEMP 36.5; O2SAT 96
[2025-02-20 21:06] LABS: Glucose, Whole Blood 144 mg/dL (60-115)
[2025-02-21 07:31] LABS: Glucose, Whole Blood 100 mg/dL (60-115)
[2025-02-21 07:32] VITALS: BP 146/70; PULSE 75; RESP 18; TEMP 36.6; O2SAT 96
[2025-02-21] MEDS: oxyCODONE HCl Immed Release 5 MG TABLET 10 MG PO (08:00)
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
== END 2025-02-21 12:05 | disposition home or self-care (01) | DRG 753 ==
LOC: HO.ED 19:11 → HO.PADLT16 02-13 10:42
PROVIDERS: Nurse Practitioner Family; Physician Assistant Medical; Admitting Provider Nurse Practitioner Psychiatric/Mental Health; Emergency Provider Emergency Medicine Emergency Medical Services; PCP Family Medicine; Visit Provider Nurse Practitioner Psychiatric/Mental Health
DX: F31.30 Bipolar disorder, current episode depressed, mild or moderate severity, unspecified (principal); R45.851 Suicidal ideations; E11.9 Type 2 diabetes mellitus without complications; M79.672 Pain in left foot; S92.322A Displaced fracture of second metatarsal bone, left foot, initial encounter for closed fracture; X58.XXXA Exposure to other specified factors, initial encounter; I10 Essential (primary) hypertension; F17.210 Nicotine dependence, cigarettes, uncomplicated; Z71.6 Tobacco abuse counseling; Z20.822 Contact with and (suspected) exposure to COVID-19; Z79.84 Long term (current) use of oral hypoglycemic drugs; Z79.899 Other long term (current) drug therapy
CPT/HCPCS: 36415; 73630; 80053; 80061; 80143; 80179; 80307; 81003; 82565; 82947; 83036; 84439; 84443; 84550; 85025; 85652; 86140; 86431; 87635; 93005; 93971; 97161; 99285; S9485

== ENCOUNTER → 2025-02-12 15:57 | Outpatient (BNV) | payer MEDICAID, SELFPAY | PROVIDERS: Admitting Provider Nurse Practitioner Psychiatric/Mental Health; Emergency Provider Emergency Medicine Emergency Medical Services; PCP Family Medicine; Visit Provider Internal Medicine Cardiovascular Disease | DX: Z13.6 Encounter for screening for cardiovascular disorders (principal) | CPT/HCPCS: 93010 ==

== ENCOUNTER 2025-02-13 10:04 | Outpatient (BNV) | payer MEDICAID, SELFPAY | END 2025-02-13 12:58 | PROVIDERS: Admitting Provider Nurse Practitioner Psychiatric/Mental Health; Emergency Provider Emergency Medicine Emergency Medical Services; PCP Family Medicine; Visit Provider Radiology Diagnostic Radiology | DX: M79.662 Pain in left lower leg (principal); M20.12 Hallux valgus (acquired), left foot | CPT/HCPCS: 73630; 93971 ==

== ENCOUNTER → 2025-02-13 10:04 | Outpatient (BNV) | payer MEDICAID, SELFPAY | PROVIDERS: Admitting Provider Nurse Practitioner Psychiatric/Mental Health; Emergency Provider Emergency Medicine Emergency Medical Services; PCP Family Medicine; Visit Provider Nurse Practitioner Family | DX: S92.902A Unspecified fracture of left foot, initial encounter for closed fracture (principal) | CPT/HCPCS: 99231 ==

== ENCOUNTER → 2025-02-13 10:04 | Outpatient (BNV) | payer OTHER, SELFPAY | PROVIDERS: Admitting Provider Nurse Practitioner Psychiatric/Mental Health; Emergency Provider Emergency Medicine Emergency Medical Services; PCP Family Medicine; Visit Provider Nurse Practitioner Psychiatric/Mental Health | DX: F31.32 Bipolar disorder, current episode depressed, moderate (principal); I10 Essential (primary) hypertension; E11.9 Type 2 diabetes mellitus without complications; M79.672 Pain in left foot; S92.902D Unspecified fracture of left foot, subsequent encounter for fracture with routine healing | CPT/HCPCS: 99232 ==

== ENCOUNTER 2025-02-21 12:36 | Outpatient (AMB) | payer MEDICAID, SELFPAY ==
[2025-02-21 12:58] VITALS: BMI 24.3
--- NOTE | 2025-02-21 12:58 | MHC.OFFVIS ---
Vital Signs 02/21/25 12:58 Height 5 ft 8 in Weight 160 lb BMI 24.3 Intake Visit Reasons: Follow Up second proximal phalanx fx Intake Note: Tomy is a 49 year old male who presents to the office today as a new patient visit referred by Ortho for a follow up for a second proximal phalanx fx. Pt was recommended to wear a short boot or post op shoe. Patient reports 2 cases of water fell on his left foot which caused his foot to become fractured. Patient has tried Oxycodone and it has not helped much with managing his pain.patient was given a post op shoe at the ER Manufacturing Clerk Name: [id number] Allergies No Known Allergies (No Known Allergies*) Allergy (Verified 02/21/25 13:10) Medication List - Last Reconciled 02/21/25 by Gerri Conley, TULIO clonazepam 1 mg PO TID PRN cyclobenzaprine 10 mg (2 x 5 mg) PO TID PRN diclofenac sodium 1% (Voltaren Arthritis Pain) 2 grams topical QID docusate sodium 100 mg PO BID escitalopram oxalate 20 mg (2 x 10 mg) PO DAILY gabapentin 300 mg PO TID lisinopril 20 mg PO DAILY meloxicam 7.5 mg PO DAILY metformin ER 500 mg PO QPM naproxen 500 mg PO BIDWM oxycodone 10 mg (2 x 5 mg) PO Q4H PRN quetiapine 100 mg PO BEDTIME sennosides (senna) 8.6 mg PO BID PRN tadalafil 5 mg PO DAILY PRN 90 days HPI Comments Details: The patient is a 49-year-old male with a past medical history as seen below presenting with a fracture of the left second toe. Patient was previously seen in the ED for left foot pain and upon x-ray a fracture was noted. Patient was given a postop shoe and has remained weight-bearing as tolerated. The patient also reports pain in the left ankle that radiates up the leg, which started approximately a month ago. Patient also states he experiences numbness and tingling of the hands. Patient was recently discharged from hospital yesterday. Denies any other pedal concerns. Denies any current nausea, vomiting, fever, chills. Patient seen nonweightbearing in a wheelchair. Patient did not provide a full history. [facility] Medical History (Updated 02/21/25 @ 13:45 by Gerri Conley DPM) Left ankle injury Arthritis of left ankle Left ankle pain Anxiety Back pain Elevated cholesterol HTN (hypertension) Diabetes Surgical History H/O colonoscopy Hx of cystoscopy Hx of anterior cruciate ligament surgery Social History Household Members: None Housing: Apartment Do you presently have visiting nurse or other home services: No Alcohol intake: never Comment: 5's Patient Tobacco Use Status: Current everyday Tobacco user Tobacco use type: Cigarette Second Hand Smoke Exposure: No service: No Sexual orientation: Straight/Heterosexual Review of Systems Const Details: - Musculoskeletal: Reports pain in the left second toe, ankle, and leg. - Neurological: Reports numbness and tingling in the hands. All systems reviewed & are unremarkable except as noted in HPI and below Physical Exam Vital Signs: BMI result Body Mass Index 24.3 Extrem Other: Left lower extremity focused physical exam: Derm: No open lesions abrasions or wounds noted. Moderate edema noted to the lower extremities. No ecchymosis noted. No clinical signs of infection. Vascular: DP/PT pulses mildly palpable. Capillary refill time less than 3 seconds. Temperature gradient warm to warm. No varicosities noted. Pedal hair present. Neuro: Protective sensation is grossly intact to the lower extremities. Numbness and tingling reported to the hands. MSK: Significant pain on palpation to the foot ankle and calf. Reduced range of motion of the ankle due to guarding of pain. Range of motion of the forefoot within normal limits. No crepitus noted. No fluctuance noted. Positive Homans test. Patient currently nonweightbearing in seen in a wheelchair. Ankle/foot/toe images:  1. 2. 3. 4. 5. 6. Office Procedures AMB Podiatry Dressing Details of Procedure: Kirby compression dressing applied to the left lower extremity. 63354 - Multi-layer compressive dressing Procedure code (CPT) selection complete Results Reviewed Results Reviewed: Patient's blood glucose was managed while patient was admitted to hospital and was 100 mg/dL today. Podiatry read of left foot x-ray (02/13/2025): Nondisplaced stress fracture noted to the lateral base of the proximal phalanx of the 2nd toe. Left foot x-ray (02/13/2025): FINDINGS: There is juxta-articular osteopenia involving the second, third, and fourth MTP joint and the medial fifth metatarsal head. The cortical white line of the medial second and third metatarsal heads appear indistinct. There is also focal osteopenia involving the lateral margin of the fifth metatarsal head. There is faint periosteal bone along the medial metadiaphysis of the second proximal phalanx is present. There is hallux valgus deformity with lateral first MTP joint marginal osteophytes. No other abnormalities are evident. IMPRESSION: Suspected erosive changes involving the bare areas of the second, third, fourth, and fifth metatarsal heads with possible mild periosteitis involving the lateral base of the second proximal phalanx raises question of an inflammatory arthropathy such as psoriatic arthritis or rheumatoid arthritis. Hallux valgus deformity with mild osteoarthritis. Left lower extremity venous duplex (02/13/2025): FINDINGS: Respiratory variation, normal compression and augmented flow are demonstrated in the interrogated left common femoral vein, superficial femoral vein, profunda femoral vein, popliteal vein and midcalf peroneal and posterior tibial venous segments . There is no Riggs's cyst. IMPRESSION: No acute deep venous thrombosis interrogated veins, left lower extremity. Negative for DVT. Left lower extremity arterial duplex (01/24/2025): FINDINGS: LEFT FEMORAL RUNOFF VELOCITIES: The left common femoral artery measures 79 cm/s and triphasic. The left profunda femoral artery is 55 cm/s and is triphasic. The left proximal superficial femoral artery measures 86 cm/s and triphasic. The left mid superficial femoral artery is 67 cm/s and triphasic. The left distal right superficial femoral artery measures 47 cm/s and is triphasic. The left popliteal velocity measures 52 cm/s and is triphasic. The left posterior tibial artery velocity measures 52 cm/s and is triphasic. IMPRESSION: 1. No sonographic evidence of significant peripheral vascular disease of the left lower extremity. Assessment & Plan Assessment & Plan (1) Left foot pain: Code(s): M79.672 - Pain in left foot Category: Medical (2) Fracture of left foot: Code(s): S92.902A - Unspecified fracture of left foot, initial encounter for closed fracture Category: Medical Qualifiers: Encounter type: initial encounter Fracture type: closed Qualified Code(s): S92.902A - Unspecified fracture of left foot, initial encounter for closed fracture (3) Left ankle pain: Code(s): M25.572 - Pain in left ankle and joints of left foot Category: Medical Qualifiers: Chronicity: unspecified Qualified Code(s): M25.572 - Pain in left ankle and joints of left foot (4) Arthritis of left ankle: Code(s): M19.072 - Primary osteoarthritis, left ankle and foot Category: Medical (5) Left ankle injury: Code(s): S99.912A - Unspecified injury of left ankle, initial encounter Category: Medical Qualifiers: Encounter type: initial encounter Qualified Code(s): S99.912A - Unspecified injury of left ankle, initial encounter Plan Patient was informed and verbally consented to the use of an ambient scribe for clinic note documentation during this visit. I discussed with the patient the current status of the fracture in the second toe, which has a good prognosis for healing. However, due to the new onset of pain in the ankle and leg, I recommended obtaining additional x-rays to ensure there are no further fractures. I also advised the use of a Kirby compression dressing and Cam boot for better support and prescribed meloxicam for pain management. Patient is to be nonweightbearing to the left lower extremity. We discussed the importance of follow-up in two weeks and the need to complete the x-rays before the next visit. Additionally, I suggested consulting with primary care for the numbness and tingling in the hands, consistent with diabetic neuropathy. 1. Fracture Of The left Second Toe - Applied a Kirby compression dressing to the left lower extremity and provided patient with a Cam boot. - Prescribed meloxicam for pain management. - Patient is to be nonweightbearing until left lower extremity. 2. Pain In The left Ankle And Leg - Ordered x-rays of the left ankle to rule out additional fractures. - Patient's left lower extremity venous duplex was negative for DVT. Patient is to keep the Kirby compression dressing clean dry and intact. Advised patient when showering to apply a plastic bag over the dressing. Patient may remove cam boot during sleep and rest. Patient is to return to the office in 2 weeks for further re-evaluation of symptoms and imaging. Orders: Orders AMB Podiatry Dressing Today M25.572 - Pain in left ankle and joints of left foot, M79.672 - Pain in left foot, S92.902A - Unspecified fracture of left foot, initial encounter for closed fracture XR ankle LT min 3V Today M25.572 - Pain in left ankle and joints of left foot XR tibia fibula LT 2V Today M25.572 - Pain in left ankle and joints of left foot Medications: New meloxicam 7.5 mg PO DAILY 30 tabs 0RF Left foot and ankle pain M25.572 - Pain in left ankle and joints of left foot, M79.672 - Pain in left foot, S92.902A - Unspecified fracture of left foot, initial encounter for closed fracture Coding Level of Care Code New Pt Level 5 (58966) Complex EM visit Add On G2211 Diagnoses Left foot pain M79.672 Closed fracture of left foot, initial encounter S92.902A Encounter type: initial encounter Fracture type: closed Left ankle pain, unspecified chronicity M25.572 Chronicity: unspecified Arthritis of left ankle M19.072 Injury of left ankle, initial encounter S99.912A Encounter type: initial encounter CPT Codes Podiatry Dressing - CPT: 00490 - Multi-layer compressive dressing ([id number]) Time Spent (min) 60
--- OUTSIDE RECORDS SUMMARY | 2025-02-21 16:02 | XMS_ITS | Encounter Summary ---
Author Organization [employer] Address [address] [place] [address] Care Team Providers Care Yard Coupler Name Role Phone Jojo Jaramillo MD Primary Care Provider [phone] Nelly Ma RN Unavailable [phone] Breanne Mayo Unavailable Encounter Details Date Type Department Care Team (Late st Contact Info) Description 10/18/[address] [facility] [address] [place], [place] [phone] Jojo Jaramillo MD [address] [place], [place] [phone] Social History Tobacco Use Types Packs/Day Years [...] Care Team (Late st Contact Info) Description 02/22/2025 9:30 AM EDT Office Visit [facility] [address] [place] [address] Jojo Jaramillo MD [address] [place] [address] 03/07/2025 9:30 AM EDT Clinical Support [facility] [address] [place] [address] Santa Wade RN [address] [place] [address] 05/07/2025 9:00 AM EST Office Visit [facility] [address] [place] [address] Robin, Jennifer, OD 230 [place] [address] documented as of this encounter Visit Diagnoses Not on filedocumented in this encounter Additional Health Concerns Assessment Noted Time PHQ-9 Depression Total Score: 5 10/12/19 24 10:50 AM EDT documented as of this encounter Care Teams Yard Coupler Relationship Specialty Start Date End Date Jojo Jaramillo MD [address] [place] [address] PCP - General Family Medicine 12/19/18 Nelly Ma RN 505 [place] [address] Registered Nurse Family Medicine 02/19/25 Breanne Mayo 02/19/25 documented as of this encounter
--- OUTSIDE RECORDS SUMMARY | 2025-02-21 16:02 | XMS_ITS | Encounter Summary ---
Author Organization [email or web address] Address [address] [facility] 7t [place] [address] Care Team Providers Care Instructor Physical Name Role Phone Jojo Jaramillo MD Primary Care Provider [phone] Nelly Ma RN Unavailable [phone] Breanne Mayo Unavailable Reason for Referral * Consultation (Urgent) - Closed Specialty Diagnoses / Procedures Referred By Diamante de souza Referred To Contact Podiatry Diagnoses Ingrown toenail of both feet Jojo Jaramillo MD 230 [place] [address] Phone: tel: fax: Bob Du DPM [address] [facility] 1st Floor (Left) [place] [address] Phone: tel: fax: Referral ID Status Reason Start Date Expiration Date V isits Requested Visits Authorized [id number] Closed Specialty Services Required 09/15/2023 09/14/2024 1 1 Encounter Details Date Type Department Care Team (Late st Contact Info) Description 09/15/2023 Orders Only [facility] [address] [place], [place] [phone] Jojo Jaramillo MD [address] [place] [address] Ingrown toenail of both feet (Primary Dx) [...] Description 02/22/2025 9:30 AM EDT Office Visit [facility] [address] [place] [address] Jojo Jaramillo MD [address] [place] [address] 03/07/2025 9:30 AM EDT Clinical Support [facility] [address] [place] [address] Santa Wade, DAGOBERTO [address] [place] [address] 05/07/2025 9:00 AM EST Office Visit [facility] [address] [place] [address] Jennifer Kelly, OD [address] [place] [address] Scheduled Referrals Name Type Priority Associated Diagnoses [...] documented as of this encounter Care Teams Instructor Physical Relationship Specialty Start Date End Date Jojo Jaramillo MD [address] [place] [address] PCP - General Family Medicine 12/19/18 Nelly Ma, RN [address] [place] [address] Registered Nurse Family Medicine 02/19/25 Breanne Mayo 02/19/25 documented as of this encounter
--- OUTSIDE RECORDS SUMMARY | 2025-02-21 16:02 | XMS_ITS | Encounter Summary ---
Author Organization [employer] Address [address] [facility] 7t [place] [address] Care Team Providers Care Band Reamer Machine Operator Name Role Phone Jojo Jaramillo MD Primary Care Provider Nelly Ma RN Unavailable [phone] Breanne Mayo Unavailable Encounter Details Date Type Department Care Team ([facility] st Contact Info) Description 11/27/2024 Orders Only [facility] [address] [place], [place] [phone] Jojo Jaramillo MD 230 [place], [place] [phone] Social History Tobacco Use Types Packs/Day Years [...] Description 02/22/2025 9:30 AM EDT Office Visit [facility] [address] [place] [address] Jojo Jaramillo MD 230 [place] [address] 03/07/2025 9:30 AM EDT Clinical Support [facility] [address] [place] [address] Santa Wade RN [address] [place] [address] 05/07/2025 9:00 AM EST Office Visit [facility] OPTOMETRY [address] [place] [address] Jennifer Kelly OD [address] [place] [address] documented as of this encounter Visit Diagnoses Not on filedocumented in this encounter Additional Health Concerns Assessment Noted Time PHQ-9 Depression Total Score: 5 04/16/20 24 7:02 AM EST documented as of this encounter Care Teams Band Reamer Machine Operator Relationship Specialty Start Date End Date Jojo Jaramillo MD [address] [place] [address] PCP - General Family Medicine 12/19/18 Nelly Ma RN [address] [place] [address] Registered Nurse Family Medicine 02/19/25 Breanne Mayo 02/19/25 documented as of this encounter
--- OUTSIDE RECORDS SUMMARY | 2025-02-21 16:02 | XMS_ITS | Encounter Summary ---
Author Organization [employer] Address [address] [facility] 7t [place] [address] Care Team Providers Care Columnist/Commentator Name Role Phone Jojo Jaramillo MD Primary Care Provider [phone] Nelly Ma RN Unavailable [phone] Breanne Mayo Unavailable Reason for Visit * Reason Onset Date Comments Appointment Request 08/17/2024 Encounter Details Date Type Department Care Team ([facility] Contact Info) Description 08/17/2024 Telephone [facility] [address] [place], [place] [phone] Jojo Jaramillo MD [address] [place], [place] [phone] Appointment Request Social History Tobacco Use Types [...] R/s Apt from 08/17/24. Contact pt at [phone] documented in this encounter Plan of Treatment Upcoming Encounters Date Type Department Care Team ([facility] st Contact Info) Description 02/22/2025 9:30 AM EDT Office Visit [facility] [address] [place] [address] Jojo Jaramillo MD [address] [place] [address] 03/07/2025 9:30 AM EDT Clinical Support [facility] [address] [place] [address] Santa Wade, DAGOBERTO [address] [place] [address] 05/07/2025 9:00 AM EST Office Visit [facility] OPT[facility] [address] [place] [address] Jennifer Kelly OD [address] [place] [address] documented as of this encounter Visit Diagnoses Not on filedocumented in this encounter Additional Health Concerns Assessment Noted Time PHQ-9 Depression Total Score: 5 04/16/20 24 7:02 AM EST documented as of this encounter Care Teams Columnist/Commentator Relationship Specialty Start Date End Date Jojo Jaramillo MD [address] [place] [address] PCP - General Family Medicine 12/19/18 Nelly Ma RN [address] [place] [address] Registered Nurse Family Medicine 02/19/25 Breanne Mayo 02/19/25 documented as of this encounter
--- OUTSIDE RECORDS SUMMARY | 2025-02-21 16:02 | XMS_ITS | Encounter Summary ---
Author Organization [employer] Address [address] [place] [address] Care Team Providers Care Adoption Services Manager Name Role Phone Jojo Jaramillo MD Primary Care Provider [phone] Nelly Ma RN Unavailable [phone] Breanne Mayo Unavailable Encounter Details Date Type Department Care Team ([facility] st Contact Info) Description 12/22/2024 Orders Only [facility] [address] [place], [place] [phone] Jojo Jaramillo MD [address] [place], [place] [phone] Social History Tobacco Use Types Packs/Day Years [...] Description 02/22/2025 9:30 AM EDT Office Visit [facility] [address] [place] [address] Jojo Jaramillo MD [address] [place] [address] 03/07/2025 9:30 AM EDT Clinical Support [facility]S [address] [place] [address] Santa Wade RN [address] [place] [address] 05/07/2025 9:00 AM EST Office Visit [facility] OPTOMETRY [address] [place] [address] Jennifer Kelly OD [address] [place] [address] documented as of this encounter Visit Diagnoses Not on filedocumented in this encounter Additional Health Concerns Assessment Noted Time PHQ-9 Depression Total Score: 16 025 1:34 PM EDT documented as of this encounter Care Teams Adoption Services Manager Relationship Specialty Start Date End Date Jojo Jaramillo MD [address] [place] [address] PCP - General Family Medicine 12/19/18 Nelly Ma RN [address] [place] [address] Registered Nurse Family Medicine 02/19/25 Breanne Mayo 02/19/25 documented as of this encounter
--- OUTSIDE RECORDS SUMMARY | 2025-02-21 16:02 | XMS_ITS | Encounter Summary ---
Author Organization [employer] Address [address] [facility] 7t [place] [address] Care Team Providers Care Wheel Press Clerk Name Role Phone Jojo Jaramillo MD Primary Care Provider [phone] Nelly Ma RN Unavailable [phone] Breanne Mayo Unavailable Reason for Visit * Reason Onset Date Comments Appointment Request 11/13/2024 Encounter Details Date Type Department Care Team ([facility] Contact Info) Description 11/13/2024 Telephone [facility] [address] [place], [place] [phone] Jojo Jaramillo MD [address] [place], [place] [phone] Appointment Request Social History Tobacco Use Types [...] requesting to be scheduled with Santa for ASSET PROTECTION SPECIALIST visit documented in this encounter Plan of Treatment Upcoming Encounters Date Type Department Care Team (Late st Contact Info) Description 02/22/2025 9:30 AM EDT Office Visit [facility] [address] [place] [address] Jojo Jaramillo MD [address] [place] [address] 03/07/2025 9:30 AM EDT Clinical Support [facility] [address] [place] [address] Santa Wade RN [address] [place] [address] 05/07/2025 9:00 AM EST Office Visit [facility] OPTOMETRY [address] [place], [place] [phone] Jennifer Kelly, OD [address] [place] [address] documented as of this encounter Visit Diagnoses Not on filedocumented in this encounter Additional Health Concerns Assessment Noted Time PHQ-9 Depression Total Score: 5 04/16/20 24 7:02 AM EST documented as of this encounter Care Teams Wheel Press Clerk Relationship Specialty Start Date End Date Jojo Jaramillo MD [address] [place] [address] PCP - General Family Medicine 12/19/18 Nelly Ma RN [address] [place] [address] Registered Nurse Family Medicine 02/19/25 Breanne Mayo 02/19/25 documented as of this encounter
--- OUTSIDE RECORDS SUMMARY | 2025-02-21 16:02 | XMS_ITS | Encounter Summary ---
Author Organization [email or web address] Address [address] [facility] [address]t [place] [address] Care Team Providers Care Rubber Turner Name Role Phone Jojo Jaramillo MD Primary Care Provider [phone] Nelly Ma RN Unavailable [phone] Breanne Mayo Unavailable Reason for Referral * Consultation (Urgent) - Closed Specialty Diagnoses / Procedures Referred By Contjuan m de souza Referred To Contact Physical Therapy Diagnoses Chronic low back pain, unspecified back pain laterality, unspecified whether sciatica present Jojo Jaramillo MD [address] [place] [address] Phone: tel: fax: Physical Therapy, [facility] [address] [facility] [address] [place] [address] Phone: tel: fax: Referral ID Status Reason Start Date Expiration Date V isits Requested Visits Authorized [id number] Closed Specialty Services Required 03/02/2024 03/02/2025 1 1 Scheduling Instructions Patient would like to have PT at [facility] because the other PT has copays. Encounter Details Date Type Department Care Team (Late st Contact Info) Description 02/24/2024 Orders Only [facility] [address] [place] [phone] Jojo Jaramillo MD [address] [place], [place] [phone] Chronic low back pain, unspecified back pain [...] Description 02/22/2025 9:30 AM EDT Office Visit [facility] [address] [place] [address] Jojo Jaramillo MD [address] [place] [address] 03/07/2025 9:30 AM EDT Clinical Support [facility] [address] [place] [address] Santa Wade, DAGOBERTO [address] [place] [address] 05/07/2025 9:00 AM EST Office Visit [facility] OPTOMETRY [address] [place], [place] [phone] Jennifer Kelly, OD [address] [place] [address] Scheduled Referrals Name Type Priority Associated Diagnoses [...] documented as of this encounter Care Teams Rubber Turner Relationship Specialty Start Date End Date Jojo Jaramillo MD [address] [place] [address] PCP - General Family Medicine 12/19/18 Nelly Ma RN [address] [place] [address] Registered Nurse Family Medicine 02/19/25 Breanne Mayo 02/19/25 documented as of this encounter
--- OUTSIDE RECORDS SUMMARY | 2025-02-21 16:02 | XMS_ITS | Encounter Summary ---
Author Organization [employer] Address [address] [facility] [address] 7t [place] [address] Care Team Providers Care Museum Curator Name Role Phone Jojo Jaramillo MD Primary Care Provider [phone] Nelly Ma RN Unavailable [phone] Breanne Mayo Unavailable Encounter Details Date Type Department Care Team ([facility] st Contact Info) Description 11/29/2024 Orders Only [facility] MEDICINE 230 [place], [place] [phone] Jojo Jaramillo MD 230 [place], [place] [phone] Social History Tobacco Use Types Packs/Day Years [...] Description 02/22/2025 9:30 AM EDT Office Visit [facility] MEDICINE 230 [place] [address] Jojo Jaramillo MD 230 [place] [address] 03/07/2025 9:30 AM EDT Clinical Support [facility] CHC MED & PEDS 505 [place] [address] Santa Wade RN 505 [place] [address] 05/07/2025 9:00 AM EST Office Visit [facility] OPTOMETRY [address] [place] [address] Jennifer Kelly OD 230 [place] [address] documented as of this encounter Visit Diagnoses Not on filedocumented in this encounter Additional Health Concerns Assessment Noted Time PHQ-9 Depression Total Score: 5 04/16/20 24 7:02 AM EST documented as of this encounter Care Teams Museum Curator Relationship Specialty Start Date End Date Jojo Jaramillo MD 230 [place] [address] PCP - General Family Medicine 12/19/18 Nelly Ma RN 505 [place] [address] Registered Nurse Family Medicine 02/19/25 Breanne Mayo 02/19/25 documented as of this encounter
--- OUTSIDE RECORDS SUMMARY | 2025-02-21 16:02 | XMS_ITS | Encounter Summary ---
Author Organization [employer] Address 75 [facility] 7t [place] [address] Care Team Providers Care Scoop Machine Operator Name Role Phone Jojo Jaramillo MD Primary Care Provider [phone] Nelly Ma RN Unavailable [phone] Breanne Mayo Unavailable Reason for Referral * Consultation (Urgent) - Denied Specialty Diagnoses / Procedures Referred By Diamante de souza Referred To Contact Diagnoses Chronic low back pain with left-sided sciatica, unspecified back pain laterality Sciatica of left side Sprain of left ankle, unspecified ligament, subsequent encounter Anxiety Mood disorder (CMS/[facility]) Jojo Jaramillo MD [address] [place] [address] Phone: tel: fax: [address] [address] Phone: tel: fax: Referral ID Status Reason Start Date Expiration Date V isits Requested Visits Authorized [id number] Denied Specialty Services Required 02/02/2025 02/02/2026 1 0 Encounter Details Date Type Department Care Team (Late st Contact Info) Description 02/02/2025 Orders Only [facility] MEDICINE [address] [place] [address] [phone] Jojo Jaramillo MD [address] [place] [address] [phone] Chronic low back pain with left-sided sciatica, [...] Description 02/22/2025 9:30 AM EDT Office Visit [facility] MEDICINE 230 [place] [address] Jojo Jaramillo MD 230 [place] [address] 03/07/2025 9:30 AM EDT Clinical Support [facility] CHC MED & PEDS 505 [place], [place] [phone] Santa Wade, DAGOBERTO 505 [place], [place] 05/07/2025 9:00 AM EST Office Visit [facility] OPTOMETRY [address] [place] [address] Robin, Jennifer, OD 230 [place], [place] Scheduled Referrals Name Type Priority Associated Diagnoses [...] documented as of this encounter Care Teams Scoop Machine Operator Relationship Specialty Start Date End Date Jojo Jaramillo MD 230 [place], [place] PCP - General Family Medicine 12/19/18 Nelly Ma RN 505 [place] [address] Registered Nurse Family Medicine 02/19/25 Breanne Mayo 02/19/25 documented as of this encounter
--- OUTSIDE RECORDS SUMMARY | 2025-02-21 16:02 | XMS_ITS | Encounter Summary ---
Author Organization [employer] Address [address] [facility] [address] 7t [place] [address] Care Team Providers Care Bundles Hanger Name Role Phone Jojo Jaramillo MD Primary Care Provider [phone] Nelly Ma RN Unavailable [phone] Breanne Mayo Unavailable Encounter Details Date Type Department Care Team (Late st Contact Info) Description 12/22/2024 Orders Only [facility] MEDICINE 230 [place], [place] [phone] Jojo Jaramillo MD 230 [place] [address] Closed fracture of lumbar vertebra, unspecified fracture morphology, unspecified lumbar vertebral level, initial encounter ([facility]) (Primary Dx); Closed fracture dislocation of lumbar spine, initial encounter ([facility]); Sprain of left ankle, unspecified ligament, [...] Description 02/22/2025 9:30 AM EDT Office Visit [facility] MEDICINE 230 [place] [address] Jojo Jaramillo MD 230 [place] [address] 03/07/2025 9:30 AM EDT Clinical Support [facility] CHC MED & PEDS 505 [place] [address] Santa Wade, DAGOBERTO 505 [place] [address] 05/07/2025 9:00 AM EST Office Visit [facility] OPTOMETRY 267 [place] [address] Jennifer Kelly, OD 230 [place] [address] documented as of this encounter Visit Diagnoses Diagnosis Closed fracture of lumbar vertebra, unspecified fracture morphology, unspecified lumbar vertebral level, initial encounter ([facility])- Primary Closed fracture dislocation of lumbar spine, initial encounter ([facility]) Sprain of left ankle, unspecified ligament, initial encounter documented in this encounter Additional Health Concerns Assessment Noted Time PHQ-9 Depression Total Score: 16 025 1:34 PM EDT documented as of this encounter Care Teams Bundles Hanger Relationship Specialty Start Date End Date Jojo Jaramillo MD [address] [place] [address] PCP - General Family Medicine 12/19/18 Nelly Ma RN [address] [place] [address] Registered Nurse Family Medicine 02/19/25 Breanne Mayo 02/19/25 documented as of this encounter
--- OUTSIDE RECORDS SUMMARY | 2025-02-21 16:02 | XMS_ITS | Encounter Summary ---
Author Organization [employer] Address [address] [facility] [address] 7t [place] [address] Care Team Providers Care Cath Lab Technologist Name Role Phone Jojo Jaramillo MD Primary Care Provider [phone] Nelly Ma RN Unavailable [phone] Breanne Mayo Unavailable Encounter Details Date Type Department Care Team ([facility] st Contact Info) Description 02/02/2025 Telephone [facility] MEDICINE 230 [place], [place] [phone] Jojo Jaramillo MD 230 [place], [place] [phone] Social History Tobacco Use Types Packs/Day Years [...] with [facility] provider, he initially stated Feb 9. However, our record shows Feb 12 at [...] Description 02/22/2025 9:30 AM EDT Office Visit [facility] MEDICINE [address] [place] [address] Jojo Jaramillo MD 230 [place] [address] 03/07/2025 9:30 AM EDT Clinical Support [facility] CHC MED & PEDS 505 [place] [address] Santa Wade, DAGOBERTO 505 [place], [place] [phone] 05/07/2025 9:00 AM EST Office Visit [facility] OPTOMETRY [address] [place] [address] Robin, Megan, OD 230 [place] [address] documented as of this encounter Visit Diagnoses Not on filedocumented in this encounter Additional Health Concerns Assessment Noted Time PHQ-9 Depression Total Score: 16 02/01/ 025 12:11 PM EDT documented as of this encounter Care Teams Cath Lab Technologist Relationship Specialty Start Date End Date Jojo Jaramillo MD 230 [place] [address] PCP - General Family Medicine 12/19/18 Nelly Ma, DAGOBERTO 505 [place] [address] Registered Nurse Family Medicine 02/19/25 Breanne Mayo 02/19/25 documented as of this encounter
--- OUTSIDE RECORDS SUMMARY | 2025-02-21 16:02 | XMS_ITS | Encounter Summary ---
Author Organization [employer] [facility] Address 75 [facility] 7t [place] [address] Care Team Providers Care Plumbing Technician Name Role Phone Jojo Jaramillo MD Primary Care Provider [phone] Nelly Ma RN Unavailable [phone] Breanne Mayo Unavailable Reason for Referral * Medications - Closed [...] morphology, unspecified lumbar vertebral level, initial encounter (CMS/[facility]) Jojo Jaramillo MD [address] [place] [address] Phone: tel: fax: Referral ID Status Reason Start Date Expiration Date Visits Re quested Visits Authorized [id number] Closed 1 1 Encounter Details Date Type Department Care Team (Late st Contact Info) Description 12/28/2024 Orders Only [facility] MEDICINE [address] [place] [address] Jojo Jaramillo MD [address] [place] [address] Chronic low back pain, unspecified back pain laterality, unspecified whether sciatica present; Chronic pain of right knee; Bilateral leg pain; Other chronic pain; Sprain of left ankle, unspecified ligament, subsequent encounter; Chronic pain of left ankle; Closed fracture of lumbar vertebra, unspecified fracture morphology, unspecified lumbar vertebral level, initial encounter (CMS/[facility]) Social History Tobacco Use Types [...] Description 02/22/2025 9:30 AM EDT Office Visit [facility] MEDICINE 230 [place], [place] [phone] Jojo Jaramillo MD 230 [place], [place] 03/07/2025 9:30 AM EDT Clinical Support [facility] CHC MED & PEDS 505 [place], [place] [phone] Santa aWde, DAGOBERTO 505 [place], [place] 05/07/2025 9:00 AM EST Office Visit [facility] OPTOMETRY [address] [place], [place] [phone] Jennifer Kelly, OD 230 [place], [place] documented as of this encounter Visit Diagnoses [...] morphology, unspecified lumbar vertebral level, initial encounter ([facility]) documented in this encounter Additional Health Concerns Assessment Noted Time PHQ-9 Depression Total Score: 16 025 1:34 PM EDT documented as of this encounter Care Teams Plumbing Technician Relationship Specialty Start Date End Date Jojo Jaramillo MD 230 [place], [place] PCP - General Family Medicine 12/19/18 Nelly Ma, RN 505 [place] [address] Registered Nurse Family Medicine 02/19/25 Breanne Mayo 02/19/25 documented as of this encounter
--- OUTSIDE RECORDS SUMMARY | 2025-02-21 16:02 | XMS_ITS | Encounter Summary ---
Author Organization [employer] Address [address] [facility] [address] 7[address] [place] [address] Care Team Providers Care Skiing Teacher Name Role Phone Jojo Jaramillo MD Primary Care Provider [phone] Nelly Ma RN Unavailable [phone] Breanne Mayo Unavailable Reason for Visit * Reason Comments Med Refill Encounter Details Date Type Department Care Team ([facility] st Contact Info) Description 12/25/2024 Refill [facility] CHC MED & PEDS 505 [place], [place] [phone] Dima Castillo MD 230 [place] [address] Arthralgia of both knees; Chronic midline low [...] Description 02/22/2025 9:30 AM EDT Office Visit [facility] MEDICINE 230 [place] [address] Jojo Jaramillo MD 230 [place] [address] 03/07/2025 9:30 AM EDT Clinical Support [facility] CHC MED & PEDS 505 [place] [address] Santa Wade, DAGOBERTO 505 [place] [address] 05/07/2025 9:00 AM EST Office Visit [facility] OPTOMETRY 267 [place] [address] Jennifer Kelly, KATHI 230 [place] [address] documented as of this encounter Visit Diagnoses Diagnosis Arthralgia of both knees Chronic midline low back pain, unspecified whether sciatica present documented in this encounter Additional Health Concerns Assessment Noted Time PHQ-9 Depression Total Score: 16 025 1:34 PM EDT documented as of this encounter Care Teams Skiing Teacher Relationship Specialty Start Date End Date Jojo Jaramillo MD 230 [place] [address] PCP - General Family Medicine 12/19/18 Nelly Ma RN [address] [place] [address] Registered Nurse Family Medicine 02/19/25 Breanne Mayo 02/19/25 documented as of this encounter
--- OUTSIDE RECORDS SUMMARY | 2025-02-21 16:02 | XMS_ITS | Encounter Summary ---
Author Organization [employer] Address 75 [facility] 7t [place] [address] Care Team Providers Care Canopy Stringer Name Role Phone Jojo Jaramillo MD Primary Care Provider [phone] Nelly Ma RN Unavailable [phone] Breanne Mayo Unavailable Reason for Visit * Reason Onset Date Comments Created In Error 03/09/2024 Encounter Details Date Type Department [facility] Description 03/09/2024 Telephone [facility] MEDICINE 230 [place], [place] [phone] Jojo Jaramillo MD 230 [place], [place] [phone] Created In Error Social History Tobacco Use [...] 02/22/2025 9:30 AM EDT Office Visit [facility] MEDICINE 230 [place] [address] Jojo Jaramillo MD 230 [place] [address] 03/07/2025 9:30 AM EDT Clinical Support [facility] CHC MED & PEDS 505 [place] [address] Santa Wade RN 505 [place] [address] 05/07/2025 9:00 AM EST Office Visit [facility] OPTOMETRY 267 [place] [address] Robin, Jennifer, OD 230 [place] [address] documented as of this encounter Visit Diagnoses Not on filedocumented in this encounter Additional Health Concerns Assessment Noted Time PHQ-9 Depression Total Score: 19 024 10:43 AM EDT documented as of this encounter Care Teams Canopy Stringer Relationship Specialty Start Date End Date Jojo Jaramillo MD 230 [place] [address] PCP - General Family Medicine 12/19/18 Nelly Ma RN 505 [place] [address] Registered Nurse Family Medicine 02/19/25 Breanne Mayo 02/19/25 documented as of this encounter
--- OUTSIDE RECORDS SUMMARY | 2025-02-21 16:02 | XMS_ITS | Encounter Summary ---
Author Organization [employer] Address 75 [facility] 7t [place] [address] Care Team Providers Care Licensing Manager Name Role Phone Jojo Jaramillo MD Primary Care Provider [phone] Nelly Ma RN Unavailable [phone] Breanne Mayo Unavailable Reason for Visit * Reason Comments Care Coordination CM/CHW outreach Encounter Details Date Type Department Care Team (Latest Contact Info) Description 02/20/2025 Patient Outreach [facility] MEDICINE 230 [place], [place] [phone] Jojo Jaramillo MD 230 [place], [place] [phone] Care Coordination (CM/CHW outreach) Social History Tobacco Use Types Packs/Day Years [...] as of this encounter Progress Notes * Breanne Mayo - 02/20/2025 2:39 PM EDT CHW Breanne Mayo placed call to [facility] for discharge planning, was transferred over to case making machine operator maria c Alfred at this time LVM. Will reattempt within 2 days. documented in this encounter Plan of Treatment Upcoming Encounters Date Type Department Care Team (Late st Contact Info) Description 02/22/2025 9:30 AM EDT Office Visit [facility] MEDICINE 230 [place] [address] Jojo Jaramillo MD 230 [place] [address] 03/07/2025 9:30 AM EDT Clinical Support [facility] CHC MED & PEDS 505 [place] [address] Santa Wade, RN 505 [place] [address] 05/07/2025 9:00 AM EST Office Visit [facility] OPTOMETRY [address] [place], [place] [phone] Robin, Jennifer, OD 230 [place], [place] [phone] documented as of this encounter Visit Diagnoses Not on filedocumented in this encounter Additional Health Concerns Assessment Noted Time PHQ-9 Depression Total Score: 16 02/01/ 025 12:11 PM EDT documented as of this encounter Care Teams Licensing Manager Relationship Specialty Start Date End Date Jojo Jaramillo MD 230 [place], [place] [phone] PCP - General Family Medicine 12/19/18 Nelly Ma, DAGOBERTO [address] [place] [address] Registered Nurse Family Medicine 02/19/25 Breanne Mayo 02/19/25 documented as of this encounter
--- OUTSIDE RECORDS SUMMARY | 2025-02-21 16:02 | XMS_ITS | Encounter Summary ---
Author Organization [employer] Address 75 [facility] 7t [place] [address] Care Team Providers Care Warehouse Person Name Role Phone Jojo Jaramillo MD Primary Care Provider [phone] Nelly Ma RN Unavailable [phone] Breanne Mayo Unavailable Reason for Visit * Reason Comments Med Refill Encounter Details Date Type Department Care Team ([facility] st Contact Info) Description 06/24/2023 Refill [facility] MEDICINE 230 [place], [place] [phone] Name, MD Gabe 230 [place] [address] Social History Tobacco Use Types Packs/Day Years [...] Description 02/22/2025 9:30 AM EDT Office Visit [facility] MEDICINE 230 [place] [address] Jojo Jaramillo MD 230 [place] [address] 03/07/2025 9:30 AM EDT Clinical Support [facility] CHC MED & PEDS 505 [place] [address] Santa Wade RN 505 [place] [address] 05/07/2025 9:00 AM EST Office Visit [facility] OPTOMETRY [address] [place] [address] Robin, Jennifer, OD 230 [place] [address] documented as of this encounter Visit Diagnoses Not on filedocumented in this encounter Additional Health Concerns Assessment Noted Time PHQ-9 Depression Total Score: 5 08/27/19 23 9:15 AM EDT documented as of this encounter Care Teams Warehouse Person Relationship Specialty Start Date End Date Jojo Jaramillo MD 230 [place] [address] PCP - General Family Medicine 12/19/18 Nelly Ma, DAGOBERTO 505 [place] [address] Registered Nurse Family Medicine 02/19/25 Breanne Mayo 02/19/25 documented as of this encounter
--- OUTSIDE RECORDS SUMMARY | 2025-02-21 16:02 | XMS_ITS | Encounter Summary ---
Author Organization [employer] Address 75 [facility] 7t [place] [address] Care Team Providers Care Oracle Database Analyst Name Role Phone Jojo Jaramillo MD Primary Care Provider [phone] Nelly Ma RN Unavailable [phone] Breanne Mayo Unavailable Reason for Referral * Consultation (Routine) - Closed Specialty Diagnoses / Procedures Referred By Diamante de souza Referred To Contact Chiropractic Medicine Diagnoses Chronic low back pain, unspecified back pain laterality, unspecified whether sciatica present Chronic pain of right knee Bilateral leg pain Jojo Jaramillo MD [address] [place] [address] Phone: tel: fax: [facility] [address] [place] [address] Phone: tel: fax: Referral ID Status Reason Start Date Expiration Date V isits Requested Visits Authorized [id number] Closed Specialty Services Required 09/10/2024 09/10/2025 1 1 Encounter Details Date Type Department Care Team (Late st Contact Info) Description 09/10/2024 Orders Only [facility] MEDICINE [address] [place] [address] [phone] Jojo Jaramillo MD [address] [place] [address] [phone] Chronic low back pain, unspecified back pain [...] Description 02/22/2025 9:30 AM EDT Office Visit [facility] MEDICINE 230 [place] [address] Jojo Jaramillo MD 230 [place] [address] 03/07/2025 9:30 AM EDT Clinical Support [facility] CHC MED & PEDS [address] [place], [place] [phone] Santa Wade, RN [address] [place], [place] 05/07/2025 9:00 AM EST Office Visit [facility] OPTOMETRY [address] [place] [address] Jennifer Kelly, OD [address] [place] [address] Scheduled Referrals Name Type Priority Associated Diagnoses [...] PM EDT Narrative 09/19/2024 8:56 PM EDT [facility] [address] [place] [address] XRay Report Signed Patient: Tomy King MR#: [id number] : 1975 Acct:[id number] Age/Sex: 48 / M ADM Date: 09/19/24 Loc: .ED Attending Dr: Ordering Physician: Susie Barrett Date of Service: 09/19/24 Procedure(s): XR lumbar spine 2-3V Accession Number(s): [id number] cc: Susie Barrett; Jojo Jaramillo MD CLINICAL [...] in OV> 09/19/242054 DD/ 53 TD/TT: 09/19/242053 Benefits Clerk: Procedure Note Donotuseinterpreter, Image - 09/19/[address] [address] XRay Report Signed Patient: Tomy KingMR#: [id number] : 1975Acct:[id number] Age/Sex: 48 / MADM Date: 09/19/24 Loc: HO.ED Attending Dr: Ordering Physician: Susie Barrett Date of Service: 09/19/24 Procedure(s): XR lumbar spine 2-3V Accession Number(s): [id number] cc: Susie Barrett; Jojo Jaramillo MD CLINICAL [...] in OV> 09/19/242054 DD/ 53 TD/TT: 09/19/242053 Benefits Clerk: us [facility] External Provider IMG XR PROCEDURES Edited Result [...] documented as of this encounter Care Teams Oracle Database Analyst Relationship Specialty Start Date End Date Jojo Jaramillo MD [address] [place] [address] PCP - General Family Medicine 12/19/18 Nelly Ma RN [address] [place] [address] Registered Nurse Family Medicine 02/19/25 Breanne Mayo 02/19/25 documented as of this encounter
--- OUTSIDE RECORDS SUMMARY | 2025-02-21 16:02 | XMS_ITS | Encounter Summary ---
Author Organization [employer] Address [address] [facility] [address] 7t [place] [address] Care Team Providers Care Cnc Lathe Programmer Name Role Phone Jojo Jaramillo MD Primary Care Provider [phone] Nelly Ma RN Unavailable [phone] Breanne Mayo Unavailable Encounter Details Date Type Department Care Team ([facility] st Contact Info) Description 02/19/2025 Patient Outreach [facility] MEDICINE 230 [place], [place] [phone] Jojo Jaramillo MD 230 [place], [place] [phone] Social History Tobacco Use Types Packs/Day Years [...] Description 02/22/2025 9:30 AM EDT Office Visit [facility] MEDICINE 230 [place] [address] Jojo Jaramillo MD 230 [place] [address] 03/07/2025 9:30 AM EDT Clinical Support [facility] CHC MED & PEDS 505 [place] [address] Santa Wade RN 505 [place] [address] 05/07/2025 9:00 AM EST Office Visit [facility] OPTOMETRY 267 [place] [address] Jennifer Kelly OD 230 [place] [address] documented as of this encounter Visit Diagnoses Not on filedocumented in this encounter Additional Health Concerns Assessment Noted Time PHQ-9 Depression Total Score: 16 025 12:11 PM EDT documented as of this encounter Care Teams Cnc Lathe Programmer Relationship Specialty Start Date End Date Jojo Jaramillo MD 230 [place] [address] PCP - General Family Medicine 12/19/18 Nelly Ma RN 505 [place] [address] Registered Nurse Family Medicine 02/19/25 Breanne Mayo 02/19/25 documented as of this encounter
--- OUTSIDE RECORDS SUMMARY | 2025-02-21 16:02 | XMS_ITS | Encounter Summary ---
Author Organization [employer] Address [address] [facility] [address] 7t [place] [address] Care Team Providers Care Debubblizer Name Role Phone Jojo Jaramillo MD Primary Care Provider [phone] Nelly Ma RN Unavailable [phone] Breanne Mayo Unavailable Encounter Details Date Type Department Care Team (Late st Contact Info) Description 04/21/2023 Orders Only [facility] 230 [place], [place] [phone] Jojo Jaramillo MD 230 [place], [place] [phone] Psoriasis (Primary Dx); Psoriasiform dermatitis Social History [...] Description 02/22/2025 9:30 AM EDT Office Visit [facility] 230 [place] [address] Jojo Jaramillo MD 230 [place] [address] 03/07/2025 9:30 AM EDT Clinical Support [facility] 505 [place] [address] Santa Wade RN 505 [place] [address] 05/07/2025 9:00 AM EST Office Visit [facility] OPTOMET[facility] 267 [place] [address] Jennifer Kelly, OD 230 [place] [address] documented as of this encounter Visit Diagnoses Diagnosis Psoriasis- Primary Other psoriasis Psoriasiform dermatitis Other psoriasis and similar disorders documented in this encounter Additional Health Concerns Assessment Noted Time PHQ-9 Depression Total Score: 5 08/27/19 23 9:15 AM EDT documented as of this encounter Care Teams Debubblizer Relationship Specialty Start Date End Date Jojo Jaramillo MD 230 [place] [address] PCP - General Family Medicine 12/19/18 Nelly Ma, DAGOBERTO 505 [place] [address] Registered Nurse Family Medicine 02/19/25 Breanne Mayo 02/19/25 documented as of this encounter
--- OUTSIDE RECORDS SUMMARY | 2025-02-21 16:02 | XMS_ITS | Encounter Summary ---
Author Organization [employer] Address 75 [facility] 7t [place] [address] Care Team Providers Care Anatomy And Physiology Instructor Name Role Phone Jojo Jaramillo MD Primary Care Provider [phone] Nelly Ma RN Unavailable [phone] Breanne Mayo Unavailable Reason for Referral * Consultation (Urgent) - Closed Specialty Diagnoses / Procedures Referred By Diamante de souza Referred To Contact Diagnoses Chronic low back pain, unspecified back pain laterality, unspecified whether sciatica present Bilateral leg pain Lumbar spondylosis Jojo Jaramillo MD [address] [place] [address] Phone: tel: fax: [facility] Referral ID Status Reason Start Date Expiration Date V isits Requested Visits Authorized [id number] Closed Specialty Services Required 08/09/2024 08/09/2025 1 1 Encounter Details Date Type Department Care Team (Late st Contact Info) Description 08/09/2024 Orders Only [facility] MED[facility]INE [address] [place] [address] [phone] Jojo Jaramillo MD [address] [place] [address] [phone] Chronic low back pain, unspecified back pain [...] Description 02/22/2025 9:30 AM EDT Office Visit [facility] 230 [place] [address] Jojo Jaramillo MD 230 [place] [address] 03/07/2025 9:30 AM EDT Clinical Support [facility] [address] [place] [address] Santa Wade RN 505 [place] [address] 05/07/2025 9:00 AM EST Office Visit [facility] OPTOMETRY [address] [place] [address] Jennifer Kelly, OD 230 [place] [address] Scheduled Referrals Name Type Priority Associated Diagnoses [...] documented as of this encounter Care Teams Anatomy And Physiology Instructor Relationship Specialty Start Date End Date Jojo Jaramillo MD 230 [place] [address] PCP - General Family Medicine 12/19/18 Nelly Ma RN 505 [place] [address] Registered Nurse Family Medicine 02/19/25 Breanne Mayo 02/19/25 documented as of this encounter
--- OUTSIDE RECORDS SUMMARY | 2025-02-21 16:02 | XMS_ITS | Encounter Summary ---
Author Organization [employer] Address 75 [facility] 7t [place] [address] Care Team Providers Care Bank Teller Machine Mechanic Name Role Phone Jojo Jaramillo MD Primary Care Provider [phone] Nelly Ma RN Unavailable [phone] Breanne Mayo Unavailable Reason for Visit * Reason Comments Care Coordination CM/CHW outreach Encounter Details Date Type Department Care Team (Latest Contact Info) Description 02/20/2025 Patient Outreach [facility] 230 [place], [place] [phone] Jojo Jaramillo MD 230 [place], [place] [phone] Care Coordination (CM/CHW outreach) Social History Tobacco [...] Progress Notes * Breanne Mayo - 02/20/2025 8:23 AM EDT CM/C3 MADAI Mayo Chart Review MADAI Mayo reviewed chart review completed by FREDERICK Ma RN, performed chart review, in anticipation of initial assessment with patient, as patient has stratified for C3 Adult Complex Care through the ADT feed. History significant for allergic rhinitis, chronic back pain, HTN, GERD, LUIS, Type 2 DM, anxiety, pruritus, chronic pain of right knee, psoriasis, ingrown toenail of both feet, bilateral leg pain, dyslipidemia, mood disorder, kidney stones, chronic pain, fracture of lumbar spine, sciatica of left side, depression, and nursing home current use of opioid analgesic. Specialists include [facility] OB[facility], [facility] Optometry, [facility], [facility], Pain Medicine, Podiatry, Cardiology, Behavioral Health, PT, and Chiropractic Medicine . ED visits within the last 12 months include [facility] 02/12/25, [facility] 01/30/25, [facility] 01/24/25, [facility] 11/26/24, and [facility] 09/19/24. Patient admitted to [facility] on 02/13/25. Discharge pending. Last appointment in PCP office on 01/31/25. Next appointment scheduled for 03/07/25 at 9:30am for RN Visit- WIRELESS WATCHER. documented in this encounter Plan of Treatment Upcoming Encounters Date Type Department Care Team (Late st Contact Info) Description 02/22/2025 9:30 AM EDT Office Visit [facility] 230 [place] [address] Jojo Jaramillo MD 230 [place] [address] 03/07/2025 9:30 AM EDT Clinical Support [facility] MED [facility] PEDS 505 [place] [address] Santa Wdae RN 505 [place] [address] 05/07/2025 9:00 AM EST Office Visit [facility] OPTOMETRY [address] [place] [address] Robin, Jennifer, OD 230 [place] [address] documented as of this encounter Visit Diagnoses Not on filedocumented in this encounter Additional Health Concerns Assessment Noted Time PHQ-9 Depression Total Score: 16 08/2 025 12:11 PM EDT documented as of this encounter Care Teams Bank Teller Machine Mechanic Relationship Specialty Start Date End Date Jojo Jaramillo MD 230 [place] [address] PCP - General Family Medicine 12/19/18 Nelly Ma, DAGOBERTO 505 [place] [address] Registered Nurse Family Medicine 02/19/25 Breanne Mayo 02/19/25 documented as of this encounter
--- OUTSIDE RECORDS SUMMARY | 2025-02-21 16:02 | XMS_ITS | Encounter Summary ---
Author Organization [employer] Address 75 [facility] 7t [place] [address] Care Team Providers Care Conference Producer Name Role Phone Jojo Jaramillo MD Primary Care Provider [phone] Nelly Ma RN Unavailable [phone] Breanne Mayo Unavailable Reason for Referral * Consultation (Routine) - Closed Specialty Diagnoses / Procedures Referred By Diamante de souza Referred To Contact Physical Therapy Diagnoses Chronic pain of right knee Bilateral leg pain Chronic midline low back pain, unspecified whether sciatica present Arthralgia of both knees Jojo Jaramillo MD [address] [place] [address] Phone: tel: fax: [facility] [address] [place] [address] Phone: tel: fax: Referral ID Status Reason Start Date Expiration Date V isits Requested Visits Authorized [id number] Closed Specialty Services Required 02/18/2024 02/17/2025 1 1 Encounter Details Date Type Department Care Team (Late st Contact Info) Description 02/18/2024 Orders Only [facility] [address] [place] [address] [phone] Jojo Jaramillo MD [address] [place] [phone] Chronic pain of right knee (Primary Dx); [...] Description 02/22/2025 9:30 AM EDT Office Visit [facility] 230 [place] [address] Jojo Jaramillo MD 230 [place] [address] 03/07/2025 9:30 AM EDT Clinical Support [facility] MED [facility]ED[facility] 505 [place] [address] Santa Wade, DAGOBERTO 505 [place] [address] 05/07/2025 9:00 AM EST Office Visit [facility] OPTOMETRY [address] [place] [address] Jennifer Kelly, OD 230 [place] [address] Scheduled Referrals Name Type Priority Associated Diagnoses [...] documented as of this encounter Care Teams Conference Producer Relationship Specialty Start Date End Date Jojo Jaramillo MD 230 [place] [address] PCP - General Family Medicine 12/19/18 Nelly Ma RN [address] [place] [address] Registered Nurse Family Medicine 02/19/25 Breanne Mayo 02/19/25 documented as of this encounter
--- OUTSIDE RECORDS SUMMARY | 2025-02-21 16:02 | XMS_ITS | Encounter Summary ---
Author Organization [email or web address] Address [address] [facility] 7t [place] [address] Care Team Providers Care Pyrotechnic Mixer Name Role Phone Jojo Jaramillo MD Primary Care Provider [phone] Nelly Ma RN Unavailable [phone] Breanne Mayo Unavailable Reason for Visit * Reason Comments Care Management C3- chart review Encounter Details Date Type Department Care Team ([facility] st Contact Info) Description 02/19/2025 Patient Outreach [facility] 230 [place], [place] [phone] Jojo Jaramillo MD 230 [place], [place] [phone] Care Management (C3CM- chart review) Social History Tobacco Use Types Packs/Day Years [...] as of this encounter Progress Notes * Nelly Ma RN - 02/19/2025 1:01 PM EDT FREDERICK Ma RN, performed chart review, in anticipation of initial assessment with patient, as patient has stratified for Adult Complex Care through the ADT feed. History significant for allergic rhinitis, chronic back pain, HTN, GERD, LUIS, Type 2 DM, anxiety, pruritus, chronic pain of right knee, psoriasis, ingrown toenail of both feet, bilateral leg pain, dyslipidemia, mood disorder, kidney stones, chronic pain, fracture of lumbar spine, sciatica of left side, depression, and assisted current use of opioid analgesic. Specialists include [facility] OB[facility], [facility] Optometry, [facility], [facility], Pain Medicine, Podiatry, Cardiology, Behavioral Health, PT, and Chiropractic Medicine . ED visits within the last 12 months include [facility] 02/12/25, [facility] 01/30/25, [facility] 01/24/25, [facility] 11/26/24, and [facility] 09/19/24. Patient admitted to [facility] on 02/13/25. Discharge pending. Last appointment in PCP office on 01/31/25. Next appointment scheduled for 03/07/25 at 9:30am for RN Visit- PROFESSOR OF BIOLOGY. documented in this encounter Plan of Treatment Upcoming Encounters Date Type Department Care Team (Late st Contact Info) Description 02/22/2025 9:30 AM EDT Office Visit [facility] 230 [place] [address] Jojo Jaramillo MD 230 [place] [address] 03/07/2025 9:30 AM EDT Clinical Support [facility] MED [facility] PEDS 505 [place] [address] Santa Wade RN 505 [place] [address] 05/07/2025 9:00 AM EST Office Visit [facility] OPTOMETRY [address] [place] [address] Robin, Jennifer, OD 230 [place] [address] documented as of this encounter Visit Diagnoses Not on filedocumented in this encounter Additional Health Concerns Assessment Noted Time PHQ-9 Depression Total Score: 16 02/01/ 025 12:11 PM EDT documented as of this encounter Care Teams Pyrotechnic Mixer Relationship Specialty Start Date End Date Jojo Jaramillo MD 230 [place] [address] PCP - General Family Medicine 12/19/18 Nelly Ma RN 505 [place] [address] Registered Nurse Family Medicine 02/19/25 Breanne Mayo 02/19/25 documented as of this encounter
--- OUTSIDE RECORDS SUMMARY | 2025-02-21 16:02 | XMS_ITS | Encounter Summary ---
Author Organization [employer] Address [address] [facility] [address] 7t [place] [address] Care Team Providers Care Crm Analyst Name Role Phone Jojo Jaramillo MD Primary Care Provider [phone] Nelly Ma RN Unavailable [phone] Breanne Mayo Unavailable Encounter Details Date Type Department Care Team (Late st Contact Info) Description 02/09/2025 Orders Only [facility] 230 [place], [place] [phone] Jojo Jaramillo MD 230 [place], [place] [phone] Sciatica of left side Social History Tobacco [...] Description 02/22/2025 9:30 AM EDT Office Visit [facility] 230 [place] [address] Jojo Jaramillo MD 230 [place] [address] 03/07/2025 9:30 AM EDT Clinical Support [facility] MED [facility] PEDS 505 [place] [address] Santa Wade, DAGOBERTO 505 [place] [address] 05/07/2025 9:00 AM EST Office Visit [facility] OPTOMETRY 267 [place] [address] Jennifer Kelly OD 230 [place] [address] documented as of this encounter Visit Diagnoses Diagnosis Sciatica of left side documented in this encounter Additional Health Concerns Assessment Noted Time PHQ-9 Depression Total Score: 16 025 12:11 PM EDT documented as of this encounter Care Teams Crm Analyst Relationship Specialty Start Date End Date Jojo Jaramillo MD 230 [place] [address] PCP - General Family Medicine 12/19/18 Nelly Ma RN 505 [place] [address] Registered Nurse Family Medicine 02/19/25 Breanne Mayo 02/19/25 documented as of this encounter
--- OUTSIDE RECORDS SUMMARY | 2025-02-21 16:02 | XMS_ITS | Encounter Summary ---
Author Organization [employer] Address 75 [facility] 7t [place] [address] Care Team Providers Care Brands Editor Name Role Phone Jojo Jaramillo MD Primary Care Provider [phone] Nelly Ma RN Unavailable [phone] Breanne Mayo Unavailable Reason for Visit * Reason Comments Med Refill Encounter Details Date Type Department Care Team ([facility] st Contact Info) Description 12/28/2024 Refill [facility] MEDICINE 230 [place], [place] [phone] Jojo Jaramillo MD 230 [place], [place] [phone] Closed fracture dislocation of lumbar spine, initial encounter ([facility]) Social History Tobacco Use Types Packs/Day [...] 9:30 AM EDT Office Visit [facility] MEDICINE 230 [place] [address] Jojo Jaramillo MD 230 [place] [address] 03/07/2025 9:30 AM EDT Clinical Support [facility] CH[facility] MED & PEDS 505 [place] [address] Santa Wade RN 505 [place] [address] 05/07/2025 9:00 AM EST Office Visit [facility] OPTOMETRY 267 [place] [address] Jennifer Kelly, KATHI 230 [place] [address] documented as of this encounter Visit Diagnoses Diagnosis Closed fracture dislocation of lumbar spine, initial encounter ([facility]) documented in this encounter Additional Health Concerns Assessment Noted Time PHQ-9 Depression Total Score: 16 025 1:34 PM EDT documented as of this encounter Care Teams Brands Editor Relationship Specialty Start Date End Date Jojo Jaramillo MD 230 [place] [address] PCP - General Family Medicine 12/19/18 Nlely Ma RN 505 [place] [address] Registered Nurse Family Medicine 02/19/25 Breanne Mayo 02/19/25 documented as of this encounter
--- OUTSIDE RECORDS SUMMARY | 2025-02-21 16:02 | XMS_ITS ---
Author Organization [employer] Address 75 [facility] 7[place] [address] Care Team Providers Care Wire Lather Name Role Phone Jojo Jaramillo MD Primary Care Provider [phone] Nelly Ma RN Unavailable [phone] Breanne Mayo Unavailable CHW Complex Status:Outreach In Progress (Enrolling) Start date:02/19/2025 Enrollment reason:MBHP Overview Missing MBHP- Pt admitted to [facility] on 02/13/25 for schizoaffective d/o. Please outreach for enrollment.Please outreach facility. Case Team Name Relationship Phone Breanne Mayo(Responsible Staff) [phone] Continued Care and Services Coordination
--- OUTSIDE RECORDS SUMMARY | 2025-02-21 16:02 | XMS_ITS ---
Author Organization [employer] Address 75 [facility] 7t [place] [address] Care Team Providers Care Aquatic Facility Manager Name Role Phone Jojo Jaramillo MD Primary Care Provider [phone] Nelly Ma RN Unavailable [phone] Breanne Mayo Unavailable CM Complex Status:Outreach In Progress (Enrolling) Start date:02/19/2025 Enrollment reason:ADT Feed Overview Missing MBHP- Pt admitted [facility] 02/13[facility]25 for schizoaffective d/o. Case Team Name Relationship Phone Nelly Ma RN(Responsible Staff) Registered Nurse [phone] Continued Care and Services Coordination
--- OUTSIDE RECORDS SUMMARY | 2025-02-21 16:02 | XMS_ITS | Encounter Summary ---
Author Organization [employer] Address [address] [facility] [address] 7t [place] [address] Care Team Providers Care Wine Sales Representative Name Role Phone Jojo Jaramillo MD Primary Care Provider [phone] Nelly Ma RN Unavailable [phone] Breanne Mayo Unavailable Encounter Details Date Type Department Care Team (Late st Contact Info) Description 01/27/2024 Orders Only [facility]IC[facility] 230 [place], [place] [phone] Jojo Jaramillo MD 230 [place], [place] [phone] Social History Tobacco Use Types Packs/Day Years [...] EDT Office Visit [facility] 230 [place] [address] Jojo Jaramillo MD 230 [place] [address] 03/07/2025 9:30 AM EDT Clinical Support [facility] MED [facility] PEDS 505 [place] [address] Santa Wade RN 505 [place] [address] 05/07/2025 9:00 AM EST Office Visit [facility] OPTOMETRY [address] [place] [address] Robin, Jennifer, OD 230 [place] [address] documented as of this encounter Visit Diagnoses Not on filedocumented in this encounter Additional Health Concerns Assessment Noted Time PHQ-9 Depression Total Score: 19 024 10:43 AM EDT documented as of this encounter Care Teams Wine Sales Representative Relationship Specialty Start Date End Date Jojo Jaramillo MD 230 [place] [address] PCP - General Family Medicine 12/19/18 Nelly Ma RN 505 [place] [address] Registered Nurse Family Medicine 02/19/25 Breanne Mayo 02/19/25 documented as of this encounter
--- OUTSIDE RECORDS SUMMARY | 2025-02-21 16:02 | XMS_ITS | Encounter Summary ---
Author Organization [employer] Address [address] [facility] [address] 7t [place] [address] Care Team Providers Care Ged Preparation Teacher Name Role Phone Jojo Jaramillo MD Primary Care Provider [phone] Nelly Ma RN Unavailable [phone] Breanne Mayo Unavailable Reason for Visit * Reason Comments Med Refill Encounter Details Date Type Department Care Team ([facility] st Contact Info) Description 12/29/[address] [facility] MED & PEDS 505 [place], [place] [phone] Jojo Jaramillo MD 230 [place] [address] Arthralgia of both knees; Chronic midline low [...] 02/22/2025 9:30 AM EDT Office Visit [facility] MEDICINE 230 [place] [address] Jojo Jaramillo MD 230 [place] [address] 03/07/2025 9:30 AM EDT Clinical Support [facility] MED [facility] PEDS 505 [place] [address] Santa Wade, DAGOBERTO 505 [place] [address] 05/07/2025 9:00 AM EST Office Visit [facility] OPTOMETRY 267 [place] [address] Jennifer Kelly, OD 230 [place] [address] documented as of this encounter Visit Diagnoses Diagnosis Arthralgia of both knees Chronic midline low back pain, unspecified whether sciatica present documented in this encounter Additional Health Concerns Assessment Noted Time PHQ-9 Depression Total Score: 16 025 1:34 PM EDT documented as of this encounter Care Teams Ged Preparation Teacher Relationship Specialty Start Date End Date Jojo Jaramillo MD 230 [place] [address] PCP - General Family Medicine 12/19/18 Nelly Ma RN [address] [place] [address] Registered Nurse Family Medicine 02/19/25 Breanne Mayo 02/19/25 documented as of this encounter
--- OUTSIDE RECORDS SUMMARY | 2025-02-21 16:02 | XMS_ITS | Encounter Summary ---
Author Organization [employer] Address 75 [facility] 7t [place] [address] Care Team Providers Care Enterprise Application Analyst Name Role Phone Jojo Jaramillo MD Primary Care Provider [phone] Nelly Ma RN Unavailable [phone] Breanne Mayo Unavailable Reason for Visit * Reason Comments Med Refill Encounter Details Date Type Department Care Team ([facility] st Contact Info) Description 05/01/2024 Refill [facility] MEDICINE 230 [place], [place] [phone] Jojo Jaramillo MD 230 [place], [place] [phone] Social History Tobacco Use Types Packs/Day Years [...] Description 02/22/2025 9:30 AM EDT Office Visit [facility] MEDICINE 230 [place] [address] Jojo Jaramillo MD 230 [place] [address] 03/07/2025 9:30 AM EDT Clinical Support [facility] CHC MED & PEDS 505 [place] [address] Santa Wade, RN 505 [place] [address] 05/07/2025 9:00 AM EST Office Visit [facility] OPTOMETRY [address] [place] [address] Jennifer Kelly, OD 230 [place] [address] documented as of this encounter Visit Diagnoses Not on filedocumented in this encounter Additional Health Concerns Assessment Noted Time PHQ-9 Depression Total Score: 5 04/16/20 24 7:02 AM EST documented as of this encounter Care Teams Enterprise Application Analyst Relationship Specialty Start Date End Date Jojo Jaramillo MD 230 [place] [address] PCP - General Family Medicine 12/19/18 Nelly Ma RN [address] [place] [address] Registered Nurse Family Medicine 02/19/25 Breanne Mayo 02/19/25 documented as of this encounter
--- OUTSIDE RECORDS SUMMARY | 2025-02-21 16:03 | XMS_ITS | Encounter Summary ---
Author Organization [employer] Address [address] [facility] [address] [place] [address] Care Team Providers Care Spa Therapist Name Role Phone Jojo Jaramillo MD Primary Care Provider [phone] Nelly Ma RN Unavailable [phone] Breanne Mayo Unavailable Encounter Details Date Type Department Care Team (Late Contact Info) Description 12/18/2022 Abstract [facility] MEDICINE [address] [place] [address] [phone] Jojo Jaramillo MD [address] [place] [address] [id number] Social History Tobacco Use Types Packs/Day Years [...] Department Care Team (Late Contact Info) Description 02/22/2025 9:30 AM EDT Office Visit [facility] MED[facility]INE [address] [place] [address] [phone] Jojo Jaramillo MD [address] [place], [place] [phone] 03/07/2025 9:30 AM EDT Clinical Support [facility] PEDS [address] [place], [place] [phone] Santa Wade, DAGOBERTO [address] [place], [place] 05/07/2025 9:00 AM EST Office Visit [facility] OPTOMETRY [address] [place] [address] Jennifer Kelly, OD [address] [place] [address] documented as of this encounter Visit Diagnoses Not on filedocumented in this encounter Additional Health Concerns Assessment Noted Time PHQ-9 Depression Total Score: 5 08/27/19 23 9:15 AM EDT documented as of this encounter Care Teams Spa Therapist Relationship Specialty Start Date End Date Jojo Jaramillo MD [address] [place] [address] PCP - General Family Medicine 12/19/18 Nelly Ma RN [address] [place], [place] [phone] Registered Nurse Family Medicine 02/19/25 Breanne Mayo 02/19/25 documented as of this encounter
--- OUTSIDE RECORDS SUMMARY | 2025-02-21 16:03 | XMS_ITS | Encounter Summary ---
Author Organization [employer] Address [address] [facility] [address] [place] [address] Care Team Providers Care Core Dropper Name Role Phone Jojo Jaramillo MD Primary Care Provider [phone] Nelly Ma RN Unavailable [phone] Breanne Mayo Unavailable Encounter Details Date Type Department Care Team (Late Contact Info) Description 10/09/2022 Orders Only [facility] MEDICINE [address] [place] [id number] Norma Ram LPN Social History Tobacco Use [...] 02/22/2025 9:30 AM EDT Office Visit [facility] MEDICINE [address] [place] [phone] Jojo Jaramillo MD [address] [place] [address] 03/07/2025 9:30 AM EDT Clinical Support [facility] MED & PEDS [address] [place] [address] Santa Wade, RN [address] [place] [address] 05/07/2025 9:00 AM EST Office Visit [facility] OPTOMETRY [address] [place], [place] [phone] Jennifer Kelly, OD [address] [place] [address] documented as of this encounter Visit Diagnoses Not on filedocumented in this encounter Additional Health Concerns Assessment Noted Time PHQ-9 Depression Total Score: 5 08/27/19 23 9:15 AM EDT documented as of this encounter Care Teams Core Dropper Relationship Specialty Start Date End Date Jojo Jaramillo MD [address] [place] [address] PCP - General Family Medicine 12/19/18 Nelly Ma, DAGOBERTO [address] [place] [phone] Registered Nurse Family Medicine 02/19/25 Breanne Mayo 02/19/25 documented as of this encounter
--- OUTSIDE RECORDS SUMMARY | 2025-02-21 16:03 | XMS_ITS | Clinical Summary ---
Author Organization [employer] Address [address] [facility] [address] [place] [address] Care Team Providers Care [place] Utility Worker Name Role Phone Jojo Gilmore MD Primary Care Provider [phone] Nelly Ma RN Unavailable [phone] Breanne Mayo Unavailable Allergies No known active allergies Medications * [...] BLOOD SUGAR TWICE DAILY NEEDED 100 strip 07/07/19 25 Active metFORMIN XR (Glucophage-XR) 500 MG 24 hr tablet TAKE 1 TABLET BY MOUTH EVERY DAY IN THE EVENING WITH A MEAL 90 tablet 07/07/19 25 Active TRUEplus Lancets 33G misc USE DIRECTED TO TEST BLOOD SUGAR TWICE DAILY NEEDED 100 each 08/08/19 25 Active lisinopril 20 MG tablet [...] morphology, unspecified lumbar vertebral level, initial encounter ([facility]) Place 1 patch on the skin 1 (one) time per week. 4 patch 12/29/19 25 Active atorvastatin (Lipitor) 40 MG tablet TAKE 1 TABLET BY MOUTH ONCE DAILY 90 tablet 01/18/20 25 Active clonazePAM (KlonoPIN) 1 MG [...] by mouth 2 times daily. 60 capsule 02/01/20 25 Active Acetaminophen Extra Strength 500 MG tabletIndication s:Acute [...] mouth 2 times daily. 60 capsule 02/10/20 025 Discontinued(O ther) Active Problems Problem Noted [...] PM EDT): - s/p fall. Evaluated in [facility] ED. CT on 11/22/24 was negative for [...] which was ineffective -Engaged in Counseling at [facility] Provider -Continue Behavioral health services -Changed Lexapro to Buspirone -Will Rx Clonazepam 0.5mg prn, max 10 tablets per month Assessment & Plan (02/01/2025 12:15 PM EDT): >>ASSESSMENT AND PLAN FOR DEPRESSION WRITTEN ON 12/21/2022 11:57 AM BY JOJO GILMORE MD -Previously tried SSRI, recently, Lexapro which was ineffective. Pt is hesitant to try Buspirone or hydroxyzine -Engaged in Counseling at [facility] Provider, and started seeing psychiatrist -Continue current [...] Buspirone or hydroxyzine -Engaged in Counseling at [facility] Provider, and started seeing psychiatrist -Continue current [...] Buspirone or hydroxyzine -Engaged in Counseling at [facility] Provider, and started seeing psychiatrist -Continue current [...] MD -Previously connected with [facility] -PHQ9 score 19 today; he declines to return to behavioral health service provider as he speaks with integrated behavioral health service at work and has copay for each visit -continue escitalopram 10 mg daily -agreed to prescribe clonazepam 1 mg tid under CONTRACT ENGINEER agreement -reassess Dx Assessment & Plan (02/01/2025 12:15 PM EDT): >>ASSESSMENT AND PLAN FOR DEPRESSION WRITTEN ON 04/16/2024 7:14 AM BY JOJO GILMORE MD -Previously connected with [facility] -PHQ9 score 19 in January 2024; he declines to return to behavioral health service provider as he speaks with integrated behavioral health service at work and has copay for each visit -PHQ9 score has improved today, score 5 -continue escitalopram 10 mg daily -agreed to prescribe clonazepam 1 mg tid under CONTRACT ENGINEER agreement -reassess Dx Acute midline thoracic back pain 12/04/2024 Sprain of left ankle 12/04/2024 Long-term current use of opiate analgesic 2024 Chronic pain 07/19/2024 Assessment & Plan (07/19/2024 4:53 AM EST): - consider evaluating and treating for fibromyalgia - patient has already tried acupuncture - patient has tried PT - recommended to reschedule appointment with CONTRACT ENGINEER nurse - recommended to consider trying duloexetine [...] behavioral health service provider: [facility] - recently being treated for anxiety and depression - most recently prescribed medications: clonazepam 1 mg tid; escitalopram 10 mg daily; trazodone 50 mg at bedtime - patient dislikes the side effect of trazodone - agreed to continue clonazepam and escitalopram - referred to CONTRACT ENGINEER RN for clonazepam - patient declines behavioral health service because he speaks with our integrated behavioral health service clinician - discussed about trial of duloexetine (Cymbalta) since he has chronic pain and his pain may partly be due to fibromyalgia. Assessment & Plan (07/19/2024 4:50 AM EST): - Hx bipolar disorder - most recent behavioral health service provider: [facility] - recently being treated for anxiety and depression - most recently prescribed medications: clonazepam 1 mg tid; escitalopram 10 mg daily; trazodone 50 mg at bedtime - patient dislikes the side effect of trazodone - agreed to continue clonazepam and escitalopram - referred to CONTRACT ENGINEER RN for clonazepam - patient declines behavioral health service because he speaks with our integrated behavioral health service clinician - discussed about trial of duloexetine (Cymbalta) since he has chronic pain and his pain may partly be due to fibromyalgia. Assessment & Plan (01/21/2024 3:48 PM EDT): - Hx bipolar disorder - most recent behavioral health service provider: [facility] - recently being treated for anxiety and depression - most recently prescribed medications: clonazepam 1 mg tid; escitalopram 10 mg daily; trazodone 50 mg at bedtime - patient dislikes the side effect of trazodone - agreed to continue clonazepam and escitalopram - refer to CONTRACT ENGINEER RN for clonazepam - patient declines behavioral [...] get, needs authorization - schedule appointment with CONTRACT ENGINEER nurse - been going to PT without [...] 50 mg BID - schedule appointment with CONTRACT ENGINEER nurse Esophageal reflux 10/08/2023 Gastritis 10/08/2023 Ingrown toenail of both feet 09/15/2023 Assessment & Plan (10/12/2023 11:27 AM EDT): - patient was seen by gunner's mate recently Psoriasis 11/06/2022 Assessment & Plan (04/12/2024 [...] 11:26 AM EDT): - was evaluated by It Sales Representative, Dr. Aquino - prescribed Betamethasone, which has been effective - upcoming appointment with Dr. Santos in Jul 2023 Assessment & Plan (06/27/2023 12:56 PM EST): - was evaluated by It Sales Representative, Dr. Aquino - prescribed Betamethasone, which has been effective - upcoming appointment with Dr. Santos in Jul 2023 Assessment & Plan (12/15/2022 10:52 AM EDT): - was evaluated by It Sales Representative, Dr. Aquino - prescribed Betamethasone, which has [...] EST): -Previously connected with [facility] -GAD7 score 19 in Jan 2024; he declined to return to behavioral health service provider as he speaks with integrated behavioral health service at work and has copay for each visit -GAD7 score 4 today -continue escitalopram 10 mg daily -agreed to prescribe clonazepam 1 mg tid under CONTRACT ENGINEER agreement -reassess Dx Assessment & Plan (01/21/2024 3:50 PM EDT): -Previously connected with [facility] -GAD7 score 19 today; he declines to return to behavioral health service provider as he speaks with integrated behavioral health service at work and has copay for each visit -continue escitalopram 10 mg daily -agreed to prescribe clonazepam 1 mg tid under CONTRACT ENGINEER agreement -reassess Dx Assessment & Plan (10/12/2023 11:26 AM EDT): Currently connected with [facility] Continue current treatment per Dr. Marr Patient is considering about not continuing with the agency because of high copay for each visit. Assessment & Plan (06/27/2023 12:53 PM EST): Currently connected with [facility] Continue current treatment per Dr. Marr Patient [...] to fear of reinjuring ACL -Seen by [facility] on 11/06/22 -Dx right knee patellofemoral [...] to fear of reinjuring ACL -Seen by [facility] on 11/06/22 -Dx right knee patellofemoral OA - patient has tried NSAIDs, APAP, and celecoxib, which were all ineffective - will prescribe tramadol under CONTRACT ENGINEER agreement Assessment & Plan (12/21/2022 11:53 AM EDT): - h/o ACL tear -Pt is hesitant to receive steroid injection -Pt stopped being physically active due to fear of reinjuring ACL -Seen by [facility] on 11/06/22 -Dx right knee patellofemoral [...] 3 months - patient was referred to telephone station repairer but he is not enthusiastic to go to the appointment Assessment & Plan (07/11/2024 5:43 PM EST): Goal BP < 140/90 per JNC-8, <130/80 per ACC/AHA, BP is not at goal -Continue Lisinopril 30 mg daily -Work on lifestyle modifications -Improve Medication adherence -Advised to continue checking home BP -f/u in 3 months - patient was referred to telephone station repairer but he is not enthusiastic to go to the appointment Assessment & Plan (04/10/2024 11:54 AM EST): Goal BP < 140/90 per JNC-8, <130/80 per ACC/AHA, BP is not at goal -Continue Lisinopril 30 mg daily -Work on lifestyle modifications -Improve Medication adherence -Advised to continue checking home BP -f/u in 3 months - patient was referred to telephone station repairer but he is not enthusiastic to go to the appointment Assessment & Plan (01/18/2024 4:05 PM EDT): Goal BP < 140/90 per JNC-8, <130/80 per ACC/AHA, BP is not at goal -Continue Lisinopril 20 mg daily -Work on lifestyle modifications -Improve Medication adherence -Advised to continue checking home BP -f/u in 3 months - patient was referred to telephone station repairer but he is not enthusiastic to go [...] X-ray in 2017 was unremarkable - He will be completing [...] lifestyle modification Last eye exam: 05/01/24 at [facility]. No retinopathy Last foot [...] lifestyle modification Last eye exam: 05/01/24 at [facility]. No retinopathy Last foot exam: 06/22/23 Last lipid profile: 08/26/23 Last microalbumin test- 08/26/23 no microalbuminuria Follow up in 4-6 mo or prn Assessment & Plan (04/12/2024 8:43 PM EST): - A1c 5.8% on 01/18/24 -Continue Metformin 500 mg daily -Encouraged patient to improve medication. -Continue working on lifestyle modification Last eye exam: 07/31/22 at [facility]. No retinopathy Last foot [...] lifestyle modification Last eye exam: 07/31/22 at [facility]. No retinopathy Last foot [...] lifestyle modification Last eye exam: 07/31/22 at [facility]. No retinopathy Last foot [...] lifestyle modification Last eye exam: 07/31/22 at [facility]. No retinopathy Last foot [...] lifestyle modification Last eye exam: 07/31/22 at [facility]. No retinopathy Last foot [...] lifestyle modification Last eye exam: 07/31/22 at [facility]. No retinopathy Last foot [...] organization. Date Type Department Care Team Description 02/21/2025 Telephone [facility] [address] [place] [phone] Jazlyn Knutson, DAGOBERTO Hospital Follow-up 02/20/2025 Patient Outreach [facility] [address] [place] [phone] Jojo Gilmore MD Care Coordination (CM/CHW outreach) 02/20/2025 Patient Outreach [facility] [address] [place] [address] Jojo Gilmore MD Care Coordination (CM/CHW outreach) 02/19/2025 Patient Outreach [address] [address] Jojo Gilmore MD Care Management (C3CM- chart review) 02/19/2025 Patient Outreach [facility] [address] [place], [place] [phone] Jojo Gilmore MD 02/13/2025 Orders Only GENERIC EXTERNAL DATA DEPARTMENT Provider, Generic External Data 02/12/2025 Patient Outreach [address] [address] Jose Maria Motta Recovery Supports 02/09/2025 Telephone [facility] [address] [place] [address] Fatemeh Avery MA 02/09/2025 Patient Outreach [address] [address] Demetrio Yao Recovery Supports 02/09/2025 Telephone [facility] [address] [place] [address] Jojo Gilmore MD Care Coordination (PT1) 02/09/2025 Orders Only [address] [address] Jojo Gilmore MD Sciatica of left side 02/09/[address] [address] Jazlyn Knutson, DAGOBERTO 02/08/2025 Refill [facility] [address] [place] [address] Sara Pimentel FNP Sciatica of left side 02/08/2025 Patient Outreach [address] [address] Demetrio Yao Recovery Supports 02/08/[address] [address] Analilia Varghese, DAGOBERTO 02/08/[address] [address] Analilia Varghese RN 02/06/2025 Patient Outreach [address] [address] Reji Avtar RC Recovery Supports 02/02/2025 Patient Outreach [address] [address] Jojo Gilmore MD Pre-visit Planning (Pre visit planning LVM ) 02/02/[address] [address] Jojo Gilmore MD 02/02/2025 Orders Only [address] [address] Jojo Gilmore MD Chronic low back pain with left-sided sciatica, unspecified back pain laterality (Primary Dx); Sciatica of left side; Sprain of left ankle, unspecified ligament, subsequent encounter; Anxiety; Mood disorder (CMS/HCC) 01/31/2025 9:30 AM EDT Office Visit [address] [address] Sara Pimentel FNP Sciatica of left side (Primary Dx); Chronic low back pain with left-sided sciatica, unspecified back pain laterality; Chronic ulcer of toe of left foot, limited to breakdown of skin (CMS/HCC); Sprain of left ankle, unspecified ligament, subsequent encounter 01/31/[address] [address] Jojo Gilmore MD ER Follow-up 01/31/2025 Travel 01/30/[address] [phone] Jojo Gilmore MD ER Follow-up 01/17/2025 Telephone [facility] [address] [place], [place] [phone] Santa Wade RN 01/16/[address] [address] Sara Pimentel, LUIS Acute midline thoracic back pain; Sprain of left ankle, unspecified ligament, initial encounter 01/16/2025 Refill [facility] [address] [place] [address] Jojo Gilmore MD 01/03/2025 Telephone [facility] [address] [place] [address] Jojo Gilmore MD 12/29/2024 Refill [facility] [address] [place], [place] [phone] Jojo Gilmore MD Arthralgia of both knees; Chronic midline low back pain, unspecified whether sciatica present 12/28/2024 Orders Only [facility] [address] [place] [address] Jojo Gilmore MD Chronic low back pain, unspecified back pain laterality, unspecified whether sciatica present; Chronic pain of right knee; Bilateral leg pain; Other chronic pain; Sprain of left ankle, unspecified ligament, subsequent encounter; Chronic pain of left ankle; Closed fracture of lumbar vertebra, unspecified fracture morphology, unspecified lumbar vertebral level, initial encounter ([facility]) 12/28/2024 Refill [facility] [address] [place] [address] Jojo Gilmore MD Closed fracture dislocation of lumbar spine, initial encounter ([facility]) 12/27/2024 Telephone [facility] [address] [place] [phone] Jojo Gilmore MD TRANSFER REQUEST 12/26/2024 Patient Outreach [facility] [address] [place] [address] Avtar Mendoza RC Outreach/No Answer (Patient answered ) 12/26/2024 Telephone [facility] [address] [place] [phone] Fidelia Mosher, GAS ENGINE OPERATOR F/U and Status Check 12/25/2024 Refill [facility] [address] [place], [place] [phone] Dima Castillo MD Arthralgia of both knees; Chronic midline low back pain, unspecified whether sciatica present 12/25/2024 Refill [facility] [place] [address] Sara Pimentel FNP Acute midline thoracic back pain; Sprain of left ankle, unspecified ligament, initial encounter 12/22/2024 Orders Only [facility] [place] [address] Jojo Gilmore MD Chronic low back pain, unspecified back pain laterality, unspecified whether sciatica present (Primary Dx); Chronic pain of right knee; Bilateral leg pain; Other chronic pain; Sprain of left ankle, unspecified ligament, subsequent encounter; Chronic pain of left ankle; Closed fracture of lumbar vertebra, unspecified fracture morphology, unspecified lumbar vertebral level, initial encounter ([facility]) 12/22/2024 Orders Only [facility] [place] [address] Jojo Gilmore MD 12/22/2024 Orders Only [address] [address] Jojo Gilmore MD Closed fracture of lumbar vertebra, unspecified fracture morphology, unspecified lumbar vertebral level, initial encounter ([facility]) (Primary Dx); Closed fracture dislocation of lumbar spine, initial encounter ([facility]); Sprain of left ankle, unspecified ligament, initial encounter 12/21/2024 Orders Only [facility] [place] [address] Jojo Gilmore MD Acute left ankle pain (Primary Dx); Closed fracture dislocation of lumbar spine, initial encounter ([facility]) 12/21/2024 Orders Only [facility] [place] [address] Jojo Gilmore MD 12/21/2024 Telephone [facility] [place] [address] Jojo Gilmore MD Call Back Request (/) 12/20/2024 Telephone [facility] [place] [address] Jojo Gilmore MD Nurse Triage 12/19/2024 Orders Only [address] [place] [address] Jojo Gilmore MD Pain and swelling of toe of left foot (Primary Dx) 12/18/[address] [address] Jojo Gilmore MD Imaging Orders; Nurse Triage 12/07/2024 11:15 AM EDT Office Visit [address] [address] Jojo Gilmore MD Essential hypertension (Primary Dx); Type 2 diabetes mellitus without complication, unspecified whether lobsterman insulin use (CMS/[facility]); Closed fracture dislocation of lumbar spine, initial encounter ([facility]); Mood disorder ([facility]); Closed fracture of lumbar vertebra, unspecified fracture morphology, unspecified lumbar vertebral level, initial encounter ([facility]); Chronic pain of left ankle; Transaminitis 12/07/2024 Travel 12/06/[address] [address] Jojo Gilmore MD CHART PREP 12/04/[address] [address] Sara Pimentel, METAL CONTROL WORKER UPHOLSTERY TECHNICIAN 12/01/2024 9:15 AM EDT Office Visit [address] [address] Sara Pimentel, METAL CONTROL WORKER Acute midline thoracic back pain (Primary Dx); Sprain of left ankle, unspecified ligament, initial encounter 12/01/2024 Refill [facility] [address] [place] [address] Dima Castillo MD Arthralgia of both knees; Chronic midline low back pain, unspecified whether sciatica present 12/01/2024 Telephone [facility] [address] [place] [address] Santa Wade RN 12/01/2024 Travel 11/30/2024 Patient Outreach [address] [address] Avtar Mendoza Recovery Supports 11/30/2024 Patient Outreach [address] [address] Dane Lara Recovery Supports 11/30/2024 Telephone [facility] [address] [place] [address], [place] [phone] Brian Murphy MA CHARTPREP 11/29/2024 Orders Only [facility] [address] [facility], [place] [phone] Jojo Gilmore MD 11/29/[address] [address] Jazlyn Knutson, DAGOBERTO Hospital Follow-up 11/27/2024 Orders Only [address], [place] [phone] Jojo Gilmore MD 11/26/2024 Orders Only GENERIC EXTERNAL DATA DEPARTMENT Provider, Generic External Data from Last 3 Months Immunizations Immunization Administration [...] Description 02/22/2025 9:30 AM EDT Office Visit [facility] [address] [place] [address] Jojo Gilmore MD [address] [place] [address] 03/07/2025 9:30 AM EDT Clinical Support [facility] [address] [place], [place] [phone] Santa Wade, DAGOBERTO [address] [place], [place] [phone] 05/07/2025 9:00 AM EST Office Visit [facility] [address] [place], [place] [phone] Jennifer Kelly, OD [address] [place] [address] Health Maintenance Due Date Last Done Comments [...] Additional history exists Diabetes: Hemoglobin A1C 03/09/2025 07 025, 07/11/2024, 01/18/2024, Additional history exists Alcohol/Substance [...] Name Priority Date/Time Associated Diagnosis Comments XR FOOT 3+ VIEWS LEFT Routine 02/13/2025 1:30 PM EDT LOWER EXTREMITY VENOUS DUPLEX LEFT Routine 02/13/2025 1:21 PM EDT DRUG MONITOR, PANEL 1, SCREEN, URINE Routine 02/13/2025 8:03 AM EDT URINALYSIS WITH REFLEX TO MICROSCOPIC Routine 02/13/2025 8:03 AM EDT POCT GLYCOSYLATED HEMOGLOBIN (HGB A1C) Routine 12/07/2024 11:46 AM EDT Type 2 diabetes mellitus without complication, unspecified whether lobsterman insulin use (CMS/HCC) POCT GLUCOSE Routine 12/07/2024 11:45 AM EDT Type 2 diabetes mellitus without complication, unspecified whether lobsterman insulin use (CMS/HCC) HEPATIC FUNCTION PANEL Routine 8:42 AM EDT Type 2 diabetes mellitus without complication, unspecified whether lobsterman insulin use (CMS/HCC) LIPID PANEL WITH REFLEX TO DIRECT LDL Routine 11/30/2024 8:42 AM EDT Type 2 diabetes mellitus without complication, unspecified whether lobsterman insulin use (CMS/HCC) CYCLIC CITRULLINATED PEPTIDE (CCP) AB (IGG) Routine [...] AUTO DIFFERENTIAL Routine 11/26/2024 12:58 AM EDT ALBUMIN, RANDOM URINE W/CREATININE Routine 08/26/2023 1:26 PM EDT Type 2 diabetes mellitus without complication, unspecified whether lobsterman insulin use (CMS/HCC) HEPATITIS C AB W/REFL [...] Recently Relevant to Health Maintenance Results * XR Foot 3+ Views Left (02/13/2025 1:30 PM EDT) Anatomical Region Laterality Modality Lower Extremities, Foot Left Radiogra phic Imaging 02/13/2025 1:30 PM EDT Narrative 02/13/2025 2:10 PM EDT [address] [address] XRay Report Signed Patient: Tomy King MR#: [id number] : 1975 Acct:[id number] Age/Sex: 49 / M ADM Date: 02/13/25 Loc: [id number] 326-[address]: Rama Turner CHECKING CLERK Ordering Physician: Gypsy Long DNP Date of Service: 02/13/25 Procedure(s): XR foot LT min 3V Accession Number(s): [id number] cc: Gypsy Long DNP; Jojo Gilmore MD Reason for Exam: Pain EXAMINATION: XR FOOT, LEFT CLINICAL INFORMATION: Pain COMPARISON: January 24 and December 21, 2024 TECHNIQUE: AP, lateral, and oblique views of the left foot. FINDINGS: There is juxta-articular osteopenia involving the second, third, and fourth MTP joint and the medial fifth metatarsal head. The cortical white line of the medial second and third metatarsal heads appear indistinct. There is also focal osteopenia involving the lateral margin of the fifth metatarsal head. There is faint periosteal bone along the medial metadiaphysis of the second proximal phalanx is present. There is hallux valgus deformity with lateral first MTP joint marginal osteophytes. No other abnormalities are evident. XR/XR foot LT min 3V IMPRESSION: Suspected erosive changes involving the bare areas of the second, third, fourth, and fifth metatarsal heads with possible mild periosteitis involving the lateral base of the second proximal phalanx raises question of an inflammatory arthropathy such as psoriatic arthritis or rheumatoid arthritis. Hallux valgus deformity with mild osteoarthritis. Electronically signed by: Joesph Lehman MD 02/13/2025 02:07 PM EDT Dictated By: Joesph Lehman MD Signed By: <Electronically signed by Joesph Lehman MD in OV> 02/13/25 1407 DD/ 1330 TD/TT: 02/13/25 1340 Monument Installer: Procedure Note Donotuseinterpreter, Image - 02/13/[address] [address] XRay Report Signed Patient: Tomy KingMR#: [id number] : 1975Acct:[id number] Age/Sex: 49 / MADM Date: 02/13/25 Loc: [id number] 326-[address]: Rama Turner CHECKING CLERK Ordering Physician: Gypsy Long DNP Date of Service: 02/13/25 Procedure(s): XR foot LT min 3V Accession Number(s): [id number] cc: Gypsy Long DNP; Jojo Gilmore MD Reason for Exam: Pain EXAMINATION: XR FOOT, LEFT CLINICAL INFORMATION: Pain COMPARISON: January 24 and December 21, 2024 TECHNIQUE: AP, lateral, and oblique views of the left foot. FINDINGS: There is juxta-articular osteopenia involving the second, third, and fourth MTP joint and the medial fifth metatarsal head. The cortical white line of the medial second and third metatarsal heads appear indistinct. There is also focal osteopenia involving the lateral margin of the fifth metatarsal head. There is faint periosteal bone along the medial metadiaphysis of the second proximal phalanx is present. There is hallux valgus deformity with lateral first MTP joint marginal osteophytes. No other abnormalities are evident. XR/XR foot LT min 3V IMPRESSION: Suspected erosive changes involving the bare areas of the second, third, fourth, and fifth metatarsal heads with possible mild periosteitis involving the lateral base of the second proximal phalanx raises question of an inflammatory arthropathy such as psoriatic arthritis or rheumatoid arthritis. Hallux valgus deformity with mild osteoarthritis. Electronically signed by: Joesph Lehman MD 02/13/2025 02:07 PM EDT Dictated By: Joesph Lehman MD Signed By: <Electronically signed by Joesph Lehman MD in OV> 02/13/25 1407 DD/ 1330 TD/TT: 02/13/25 1340 Monument Installer: [facility] External Provider IMG XR PROCEDURES Final Result * Lower Extremity Venous Duplex (02/13/2025 1:21 PM EDT) 02/13/2025 1:21 PM EDT Narrative [facility] - 02/13/2025 1:46 PM EDT [address] [address] Ultrasound Report Signed Patient: Tomy King MR#: [id number] : 1975 Acct:[id number] Age/Sex: 49 / M ADM Date: 02/13/25 Loc: [id number].PADLT16 326-[address]: Rama Turner CHECKING CLERK Ordering Physician: Gypsy Long DNP Date of Service: 02/13/25 Procedure(s): US venous duplex LE LT Accession Number(s): [id number] cc: Gypsy Long DNP; Jojo Gilmore MD Reason for Exam: Pain and swelling EXAMINATION: US TRIPLEX LOWER EXTREMITY, LEFT CLINICAL INFORMATION: Pain, left lower extremity. COMPARISON: None available. TECHNIQUE: Color-flow triplex imaging with spectral analysis and compression Doppler were performed on the left lower extremity. FINDINGS: Respiratory variation, normal compression and augmented flow are demonstrated in the interrogated left common femoral vein, superficial femoral vein, profunda femoral vein, popliteal vein and midcalf peroneal and posterior tibial venous segments . There is no Riggs's cyst. US/US venous duplex LE LT IMPRESSION: No acute deep venous thrombosis interrogated veins, left lower extremity. Negative for DVT. Electronically signed by: Talon Madrigal MD 02/13/2025 01:43 PM EDT Dictated By: Talon Turk MD Signed By: <Electronically signed by Talon Knutson MD in OV> 02/13/25 1343 DD/ 1321 TD/TT: 02/13/25 1327 Monument Installer: Procedure Note Donotuseinterpreter, Image - 02/13/[address] [address] Ultrasound Report Signed Patient: Tomy KingMR#: [id number] : 1975Acct:[id number] Age/Sex: 49 / MADM Date: 02/13/25 Loc: HO.[id number] 326-[address]: Rama Turner CHECKING CLERK Ordering Physician: Gypsy Long DNP Date of Service: 02/13/25 Procedure(s): US venous duplex LE LT Accession Number(s): [id number] cc: Gypsy Long DNP; Jooj Gilmore MD Reason for Exam: Pain and swelling EXAMINATION: US TRIPLEX LOWER EXTREMITY, LEFT CLINICAL INFORMATION: Pain, left lower extremity. COMPARISON: None available. TECHNIQUE: Color-flow triplex imaging with spectral analysis and compression Doppler were performed on the left lower extremity. FINDINGS: Respiratory variation, normal compression and augmented flow are demonstrated in the interrogated left common femoral vein, superficial femoral vein, profunda femoral vein, popliteal vein and midcalf peroneal and posterior tibial venous segments . There is no Riggs's cyst. US/US venous duplex LE LT IMPRESSION: No acute deep venous thrombosis interrogated veins, left lower extremity. Negative for DVT. Electronically signed by: Talon Madrigal MD 02/13/2025 01:43 PM EDT RP Dictated By: Talon Turk MD Signed By: <Electronically signed by Talon Knutson MDin OV> 02/13/25 1343 DD/ 1321 TD/TT: 02/13/25 1327 Monument Installer: [facility] External Provider CV VASC ULAR PROCEDURES Final Result [facility] [address] [place] [phone] * (ABNORMAL) Urinalysis with Reflex to Microscopic (02/13/2025 8:03 AM EDT) Color Urine Yellow [facility] Appearance Urine Clear [facility] PH 7.5 5.0 - 9.0 [facility] Glucose Urine UA 500(A) Negative mg/dL [facility] Urine Blood Negative Negative [facility] Specific Breese - Urine 1.015 1.005 - 1.025 [facility] Urine Protein Negative Neg-Trace mg/dL [facility] Urine Ketones Negative Negative mg/dL [facility] Nitrite Urine Negative Negative [facility] Leukocyte Esterase Urine Negative Negative [facility] 02/13/2025 8:03 AM EDT 02/13/2025 8:08 AM EDT us Generic External Data Provider LAB URINE ORDERAB LES Final Result [facility] [address] [place] [phone] * (ABNORMAL) Drug Monitoring, Panel 1, Screen, Urine (02/13/2025 8:03 AM EDT) Opiate Screen Urine POSITIVE(A) Not Detect [facility] Comment:Opiate cut-off is 30 0 ng/mL.Positive results are unconfirmed and should not be used fornon-medical purposes. Barbiturates, Urine Not Detected Not Detect [facility] Comment:Barbiturate cut-off is 200 ng/mL.Positive results are unconfirmed and should not be used fornon-medical purposes. Phencyclidine Screen Urine Not Detected Not Detect [facility] Comment:Phencyclidine cut-of f is 25 ng/mL.Positive results are unconfirmed and should not be used fornon-medical purposes. Amphetamine Screen Urine Not Detected Not Detect [facility] Comment:Amphetamine cut-off is 1000 ng/mL.Positive results are unconfirmed and should not be used fornon-medical purposes. Benzodiazepines Screen Urine Not Detected Not Detect [facility] Comment:Benzodiazepine cut-o ff is 200 ng/mL.Positive results are unconfirmed and should not be used fornon-medical purposes. Cocaine Screen Urine Not Detected Not Detect [facility] Comment:Cocaine cut-off is 3 00 ng/mL.Positive results are unconfirmed and should not be used fornon-medical purposes. Cannabinoid Screen Urine Not Detected Not Detect [facility] Comment:Cannabinoid cut-off is 50 ng/mL.Positive results are unconfirmed and should not be used fornon-medical purposes. Methadone Screen, Urine Not Detected Not Detect ng/mL [facility] Comment:Methadone cut-off is 300 ng/mL.Positive results are unconfirmed and should not be used fornon-medical purposes. FENTANYL URINE Not Detected Not Detect [facility] Comment:Fentanyl cut-off is 1 ng/mL.Positive results are unconfirmed and should not be used fornon-medical purposes. Oxycodone Urine Screen Positive(A) Not Detect ng/mL [facility] Comment:Oxycodone cut-off is 100 ng/mL.Positive results are unconfirmed and should not be used fornon-medical purposes. Buprenorphine Screen Positive(A) Not Detect ng/mL [facility] Comment:Buprenorphine cut-of f is 5 ng/mL.Positive results are unconfirmed and should not be used fornon-medical purposes. 02/13/2025 8:03 AM EDT 02/13/2025 8:08 AM EDT us Generic External Data Provider LAB URINE ORDERAB LES Final Result [facility] [address] [place] [phone] * (ABNORMAL) POCT glycosylated hemoglobin (Hgb A1c) [...] 8:42 AM EDT) Triglycerides 134 <150 mg/dL [facility] Comment:Desirable Triglyceri de: less than 150 mg/dLBorderline High Triglyceride 150-199 mg/dLHigh Triglyceride: 200-499 mg/dLVery High Triglyceride: greater than or equal to 5OO mg/dL Cholesterol 183 <200 mg/dL [facility] Comment:Desirable Cholestero l: less than 200 mg/dLBorderline High Cholesterol: 200-239 mg/dLHigh Cholesterol: greater than 239 mg/dL LDL Cholesterol Calculated 119(H) <100 mg/dL [facility] Comment:Desirable LDL: less than 100 mg/dLNear Optimal/Above Optimal LDL: 110- 129 mg/dLBorderline High LDL: 130-159 mg/dLHigh LDL: 160-189 mg/dLVery High LDL: greater than or equal to 190 mg/dL HDL Cholesterol 38(L) >40 mg/dL [facility] Comment:Desirable HDL: great er than 40 mg/dL Note: This HDL assay may give artificially low results in patients with liver disease. Blood 11/30/2024 8:42 AM EDT 11/30/2024 11:23 AM EDT Jojo Gilmore MD LAB BLOOD ORDERABLES Final Resul t [facility] [address] [place] [address] [phone] * Cyclic Citrullinated Peptide (CCP) Antibody (IgG) (11/30/2024 8:42 AM EDT) Cyclic Citrullinated Peptide <16 UNITS [facility] Comment:Reference RangeNegat eugenio: <20Weak Positive: 20-39Moderate Positive: 40-59Strong Positive: >59THIS TEST WAS PERFORMED AT:[employer] [address] [phone] ARRIOLA MD Blood Venous blood specimen / Unknown 11/30/2024 8:42 AM EDT 11/30/2024 11:23 AM EDT us Jojo Gilmore MD LAB BLOOD ORDERABLES Final Resul t Performing Organization Address City/[facility]/ZIP Co de Phone Number [facility] [address] [place] [phone] * Sed Rate by Modified Yandy (11/30/2024 8:42 AM EDT) Pathologist [facility] Erythrocyte Sedimentation Rate 7 0 - 15 MM/HR [facility] Comment:Patients with polycy themia and many hemoglobin abnormalitiesmay have depressed sed rates whereas patients with anemiamay have elevated sed rates. Blood Venous blood specimen / Unknown 11/30/2024 8:42 AM EDT 11/30/2024 11:23 AM EDT us Jojo Gilmore MD LAB BLOOD ORDERABLES Final Resul t Performing Organization Address [facility] Co de Phone Number [facility] [address] [place] [phone] * Rheumatoid Factor (11/30/2024 8:42 AM EDT) Pathologist [facility] Rheumatoid Factor <13.0 <15.0 IU/mL [facility] Blood Venous blood specimen / Unknown 11/30/2024 8:42 AM EDT 11/30/2024 11:23 AM EDT Jojo Gilmore MD LAB BLOOD ORDERABLES Final Resul t Performing Organization Address [facility] Co de Phone Number [facility] [address] [place] [phone] * (ABNORMAL) C-reactive Protein (11/30/2024 8:42 AM EDT) C Reactive Protein 0.74(H) < or = 0.50 mg/dL [facility] Blood Venous blood specimen / Unknown 11/30/2024 8:42 AM EDT 11/30/2024 11:23 AM EDT us Jojo Gilmore MD LAB BLOOD ORDERABLES Final Resul t [facility] [address] [place] [address] [phone] * ROMMEL Screen,IFA, with Reflex to Titer and Pattern (11/30/2024 8:42 AM EDT) Anti Nuclear Antibody Screen NEGATIVE NEGATIVE [facility] Comment:ROMMEL IFA is a first [...] clinicallysuspected inflammatory myopathies.AC-0: NegativeInternational Consensus on ROMMEL Patterns(https://doi.org/10.1515/accn-4157-5880)For additional information, please refer tohttp://education.Beatsy/faq/TSD166(This link is being provided for informational/educational purposes only.)THIS TEST WAS PERFORMED AT:[employer] [place] [phone] ARRIOLA MD ROMMEL Titer TNP [facility] ROMMEL Pattern TNP [facility] ROMMEL TITER 2 (REF LAB) TNP [facility] ROMMEL Pattern 2 [facility] ROMMEL TITER 3 [facility] ROMMEL PATTERN 3 [facility] Blood Venous blood specimen / Unknown 11/30/2024 8:42 AM EDT 11/30/2024 11:23 AM EDT Jojo Gilmore MD LAB BLOOD ORDERABLES Final Resul t Performing Organization Address City/[facility]/ZIP Co de Phone Number [facility] [address] [place] [phone] * Hepatic Function Panel (11/30/2024 8:42 AM EDT) Bilirubin, Direct 0.3 0.0 - 0.5 mg/dL [facility] Blood Venous blood specimen / Unknown 11/30/2024 8:42 AM EDT 11/30/2024 11:23 AM EDT Jojo Gilmore MD LAB BLOOD ORDERABLES Final Resul t Performing Organization Address [facility] de Phone Number [facility] [address] [place] [phone] * (ABNORMAL) Comprehensive Metabolic Panel (11/30/2024 8:42 AM EDT) Only the most recent of2 resultswithin the time period is included. Sodium 140 135 - 145 mmol/L [facility] Potassium 3.6 3.3 - 5.1 mmol/L [facility] Chloride 107 96 - 108 mmol/L [facility] Carbon Dioxide 24 22 - 29 mmol/L [facility] Anion Gap 13 12 - 20 [facility] Urea Nitrogen (BUN) 17(H) 9 - 16 mg/dL [facility] Creatinine, Serum 0.87 0.5 - 1.4 mg/dL [facility] Estimated Glomerular Filt Rate >60 [facility] Comment:Chronic Kidney Disea se: Estimated GFR < 60 mL/min/1.44u0Nslkzb Kidney Disease: Estimated GFR < 15 mL/min/1.73m2 Glucose 121(H) 60 - 115 mg/dL [facility] Calcium 9.3 8.4 - 10.2 mg/dL [facility] Bilirubin, Total 0.6 0.0 - 1.0 mg/dL [facility] Aspartate Amino Transferase 53(H) 5 - 37 U/L [facility] Alanine Aminotransferase 134(H) 0 - 40 U/L [facility] Total Protein 6.5 6.5 - 8.0 g/dL [facility] Albumin Level 4.2 3.5 - 5.0 g/dL [facility] Alkaline Phosphatase 51 39 - 117 U/L [facility] Blood Venous blood specimen / Unknown 11/30/2024 8:42 AM EDT 11/30/2024 11:23 AM EDT us Jojo Gilmore MD LAB BLOOD ORDERABLES Final Resul t Performing Organization Address City/State/[facility] Co de Phone Number [facility] [address] [place] [phone] * XR Ankle 3+ Views Left (11/26/2024 2:34 AM EDT) Anatomical Region Laterality Modality Lower Extremities, Ankle Left Radiogr aphic Imaging 11/26/2024 2:34 AM EDT Narrative 11/26/2024 2:37 AM EDT [place] [address] XRay Report Signed Patient: Tomy King MR#: [id number] : 1975 Acct:[id number] Age/Sex: 48 / M ADM Date: 11/26/24 Loc: .ED Attending Dr: Ordering Physician: Federico Grover MD Date of Service: 11/26/24 Procedure(s): XR ankle LT min 3V Accession Number(s): [id number] cc: Jojo Gilmore MD; Federico Grover MD CLINICAL HISTORY: fall LEFT ANKLE X-RAYS COMPARISON: None provided. FINDINGS: A total of 3 views of the left ankle were obtained. Exam is mildly limited due to patient positioning. No evidence of an acute fracture or dislocation. No metallic foreign body. IMPRESSION: 1. No acute disease. This document has been electronically signed by: Tmoy Elliott M.D. on 11/26/2024 02:34:43 Dictated By: Tomy Elliott MD Signed By: <Electronically signed by Tomy Elliott MD in OV> 11/26/24235 DD/ 3 TD/TT: 11/26/24233 Monument Installer: Procedure Note Donotuseinterpreter, Image - 11/26/[address] [address] XRay Report Signed Patient: Tomy KingMR#: [id number] : 1975Acct:[id number] Age/Sex: 48 / MADM Date: 11/26/24 Loc: .ED Attending Dr: Ordering Physician: Federico Grover MD Date of Service: 11/26/24 Procedure(s): XR ankle LT min 3V Accession Number(s): [id number] cc: Jojo Gilmore MD; Federico Grover MD [...] in OV> 11/26/24235 DD/ 3 TD/TT: 11/26/24233 Monument Installer: [facility] External Provider IMG XR PROCEDURES Final Result * (ABNORMAL) CBC auto differential (11/26/2024 12:58 AM EDT) White Blood Count 4.6(L) 4.8 - 10.8 X10*3/uL [facility] Red Blood Count 4.80 4.60 - 5.80 X10*6/uL [facility] Hemoglobin 14.6 14.0 - 18.0 g/dl [facility] Hematocrit 41.4(L) 42.0 - 52.0 % [facility] Mean Corpuscular Volume 86.3 80.0 - 98.0 fL [facility] Mean Corpuscular Hemoglobin 30.4 27.0 - 33.0 pg [facility] Mean Corpuscular HGB Conc 35.3 31.0 - 36.0 g/dl [facility] Red Cell Distribution Width 13.2 11.0 - 16.0 % [facility] Platelet Count 180 160 - 400 X10*3/uL [facility] Mean Platelet Volume 10.0 9.4 - 12.4 fL [facility] Neutrophils Percent Auto 61.7 45 - 73 % [facility] Imm Gran Pct Auto 0.2 0.0 - 0.4 % [facility] Lymphocytes Percent Auto 23.5 20 - 40 % [facility] Monocytes Percent Auto 9.7 2 - 11 % [facility] Eosinophils Percent Auto 4.2(H) 0 - 4 % [facility] Basophils Percent Auto 0.7 0 - 2 % [facility] NRBC Pct Auto 0.0 0.0 - 0.2 /100WBC [facility] Neutrophils Absolute Auto 2.8 2.0 - 8.3 x10*3/uL [facility] Imm Gran Abs Auto 0.01 0.00 - 0.03 X10*3/uL [facility] Lymphocytes Absolute Auto 1.1(L) 1.2 - 4.9 X10*3/uL [facility] Monocytes Absolute Auto 0.4 0.1 - 1.2 X10*3/uL [facility] Eosinophils Absolute Auto 0.2 0.0 - 0.4 X10*3/uL [facility] Basophils Absolute Auto 0.0 0.0 - 0.2 X10*3/uL [facility] NRBC Abs Auto 0.000 0.0 - 0.012 X10*3/uL [facility] 11/26/2024 12:5 8 AM EDT 11/26/2024 1:01 AM EDT Generic External Data Provider LAB BLOOD ORDERAB LES Final Result Performing Organization Address City/[facility]/ZIP Co de Phone Number [facility] [address] [place] [phone] * Albumin, Random Urine W/Creatinine (08/26/2023 1:26 PM EDT) Creatinine, Urine 172.30 mg/dL [facility] Microalbumin Urine 6.0 mg/L [facility] Microalbum Creatinine Ratio Ur 3.4 <30 ug/mg cr [facility] Comment:Albumin/Creatinine R atio Reference Ranges: Normal: < 30 ug/mg creatinine Microalbuminuria: 30 - 300 ug/mg creatinineClinical Albuminuria: > 300 ug/mg creatinine Urine 08/26/2023 1:26 PM EDT 08/26/2023 4:31 PM EDT Jojo Gilmore MD LAB URINE ORDERABLES Final Resul t Performing Organization Address [facility] Co de Phone Number [facility] [address] [place] [phone] * Hepatitis C Antibody with Reflex to HCV, RNA, Quantitative, Real-Time PCR (08/26/2023 1:20 PM EDT) Hepatitis C Antibody Nonreactive Nonreactive [facility] Comment:Antibodies to HCV no t detected; does not exclude early acuteHCV infection. Blood Venous blood specimen / Unknown 08/26/2023 1:20 PM EDT 08/26/2023 3:59 PM EDT Jojo Gilmore MD LAB BLOOD ORDERABLES Final Resul t Performing Organization Address [facility] Co de Phone Number [facility] [address] [place] [phone] * HIV-1/2 Antigen and Antibodies, Fourth Generation, with Reflexes (08/26/2023 1:20 PM EDT) HIV AB/AG Nonreactive Nonreactive [facility] Comment:HIV-1 p24 Ag and/or HIV-1/HIV-2 Ab not detected.A test result that is nonreactive does not exclude thepossibility of exposure to or infection with HIV-1 and/orHIV-2. Nonreactive results in this assay for individualswith prior exposure to HIV-1 and/or HIV-2 may be due toantigen and antibody levels that are below the limit ofdetection of this assay.The [employer] HIV Ag/Ab Combo assay result andsupplemental assay results should be interpreted inconjunction with the patient's clinical presentation,history and other laboratory results. If the results areinconsistent with clinical evidence, additional testing issuggested to confirm the result. Blood Venous blood specimen / Unknown 08/26/2023 1:20 PM EDT 08/26/2023 3:59 PM EDT Jojo Gilmore MD LAB BLOOD ORDERABLES Final Resul t [facility] [address] [place] [phone] * Colonoscopy (03/03/2022) Colonoscopy Normal Normal 03/03/2022 [facility] Unassigned Pcp HEALTH MAINTENANCE Edited Result - Final from Last 3 Months or Most Recently Relevant to Health Maintenance Insurance [employer] [facility] [address] [place] [id number] Care Teams [place] Utility Worker Relationship Specialty Start Date End Date Jojo Gilmore MD [address] [place] [phone] PCP - General Family Medicine 12/19/18 Nelly Ma RN [address] [place] [phone] Registered Nurse Family Medicine 02/19/25 Breanne Mayo 02/19/25
--- OUTSIDE RECORDS SUMMARY | 2025-02-21 16:03 | XMS_ITS | Encounter Summary ---
Author Organization [facility] Address [address] [place] [address] Care Team Providers Care Manager Of Organizational Development Name Role Phone Jojo Jaramillo MD Primary Care Provider [phone] Nelly Ma RN Unavailable [phone] Breanne Mayo Unavailable Encounter Details Date Type Department Care Team ([facility] st Contact Info) Description 12/21/2024 Orders Only [facility] [address] [place], [place] [phone] Jojo Jaramillo MD [address] [place], [place] [phone] Social History Tobacco Use Types Packs/Day Years [...] Description 02/22/2025 9:30 AM EDT Office Visit [facility] [address] [place] [phone] Jojo Jaramillo MD [address] [place] [address] 03/07/2025 9:30 AM EDT Clinical Support [facility] [address] [place] [address] Santa Wade RN [address] [place] [address] 05/07/2025 9:00 AM EST Office Visit [facility] [address] [place] [address] Jennifer Kelly OD [address] [place] [address] documented as of this encounter Visit Diagnoses Not on filedocumented in this encounter Additional Health Concerns Assessment Noted Time PHQ-9 Depression Total Score: 16 025 1:34 PM EDT documented as of this encounter Care Teams Manager Of Organizational Development Relationship Specialty Start Date End Date Jojo Jaramillo MD [address] [place] [phone] PCP - General Family Medicine 12/19/18 Nelly Ma RN [address] [place] [address] Registered Nurse Family Medicine 02/19/25 Breanne Mayo 02/19/25 documented as of this encounter
--- OUTSIDE RECORDS SUMMARY | 2025-02-21 16:03 | XMS_ITS | Encounter Summary ---
Author Organization [employer] Address [address] [facility] [address] 7t [place] [address] Care Team Providers Care Securities Sales Associate Name Role Phone Jojo Jaramillo MD Primary Care Provider [phone] Nelly Ma RN Unavailable [phone] Breanne Mayo Unavailable Encounter Details Date Type Department Care Team (Late st Contact Info) Description 12/19/2024 Orders Only [facility] MEDICINE [address] [place], [place] [phone] Jojo Jaramillo MD 230 [place], [place] [phone] Pain and swelling of toe of left [...] Description 02/22/2025 9:30 AM EDT Office Visit [facility] MEDICINE [address] [place] [address] Jojo Jaramillo MD 230 [place] [address] 03/07/2025 9:30 AM EDT Clinical Support [facility] MED & PEDS 505 [place] [address] Santa Wade, DAGOBETRO 505 [place] [address] 05/07/2025 9:00 AM EST Office Visit [facility] OPTOMETRY [address] [place], [place] [phone] Jennifer Kelly OD 230 [place] [address] documented as of this encounter Visit Diagnoses Diagnosis Pain and swelling of toe of left foot- Primary documented in this encounter Additional Health Concerns Assessment Noted Time PHQ-9 Depression Total Score: 16 025 1:34 PM EDT documented as of this encounter Care Teams Securities Sales Associate Relationship Specialty Start Date End Date Jojo Jaramillo MD 230 [place] [address] PCP - General Family Medicine 12/19/18 Nelly Ma RN 505 [place] [address] Registered Nurse Family Medicine 02/19/25 Breanne Mayo 02/19/25 documented as of this encounter
--- OUTSIDE RECORDS SUMMARY | 2025-02-21 16:03 | XMS_ITS | Encounter Summary ---
Author Organization [employer] Address 75 [facility] 7t [place] [address] Care Team Providers Care Kilnman Name Role Phone Jojo Jaramillo MD Primary Care Provider [phone] Nelly Ma RN Unavailable [phone] Breanne Mayo Unavailable Reason for Visit * Reason Comments Med Refill Encounter Details Date Type Department Care Team (Late Contact Info) Description 12/06/2022 Refill [facility] [address] [place] [address] [phone] Dima Castillo MD [address] [place] [address] [phone] Social History Tobacco Use Types Packs/Day Years [...] Description 02/22/2025 9:30 AM EDT Office Visit [facility] MED[facility] [address] [place] [address] [phone] Jojo Jaramillo MD 230 [place], [place] [phone] 03/07/2025 9:30 AM EDT Clinical Support [facility] CH[facility] MED & PEDS 505 [place], [place] [phone] Santa Wade, DAGOBERTO 505 [place], [place] [phone] 05/07/2025 9:00 AM EST Office Visit [facility] OPTOMETRY [address] [place] [address] Jennifer Kelly, OD 230 [place] [address] documented as of this encounter Visit Diagnoses Not on filedocumented in this encounter Additional Health Concerns Assessment Noted Time PHQ-9 Depression Total Score: 5 08/27/19 23 9:15 AM EDT documented as of this encounter Care Teams Kilnman Relationship Specialty Start Date End Date Jojo Jaramillo MD 230 [place] [address] PCP - General Family Medicine 12/19/18 Nelly Ma RN 505 [place] [address] Registered Nurse Family Medicine 02/19/25 Breanne Mayo 02/19/25 documented as of this encounter
--- OUTSIDE RECORDS SUMMARY | 2025-02-21 16:03 | XMS_ITS | Encounter Summary ---
Author Organization [employer] Address 75 [facility] 7t [place] [address] Care Team Providers Care Cable Splicer Assistant Name Role Phone Jojo Jaramillo MD Primary Care Provider [phone] Nelly Ma RN Unavailable [phone] Breanne Mayo Unavailable Reason for Visit * Reason Onset Date Comments Hospital Follow-up 02/21/2025 Encounter Details Date Type Department Care Team ([facility] Contact Info) Description 02/21/2025 Telephone [facility] MEDICINE 230 [place] [address] Jazlyn Knutson RN 230 [place], [place] [phone] Hospital Follow-up Social History Tobacco Use Types Packs/Day Years [...] Telephone Encounter - Jazlyn Knutson RN - 02/21/2025 3:47 PM EDT Images from the original note were not included. Pt walked into [employer] lobby once again demanding to speak with RN. Explained to him that he missed his appt with PCP 02/12 that I reminded him of and had stressed the importance of. Pt states was admitted at [facility] 02/13- today 02/21 for psych and that his concern is that they did not send him the prescriptions they were supposed to send upon discharge. Pt booked HDF for tomorrow 02/22. Once again stressed the importance of coming to this appt. Informed I would get discharge summary and will see what can be done about meds. Hospital summary scanned in under Media. I also reviewed his discharge directions in [facility] which unfortunately did not have a pharmacy listed. documented in this encounter Plan of Treatment Upcoming Encounters Date Type Department Care Team (Late st Contact Info) Description 02/22/2025 9:30 AM EDT Office Visit [facility] MEDICINE 230 [place] [address] Jojo Jaramillo MD 230 [place] [address] 03/07/2025 9:30 AM EDT Clinical Support [facility] CH[facility] MED & PEDS 505 [place], [place] [phone] Santa Wade, DAGOBERTO 505 [place], [place] 05/07/2025 9:00 AM EST Office Visit [facility] OPTOMETRY [address] [place] [address] Jennifer Kelly, OD 230 [place] [address] documented as of this encounter Visit Diagnoses Not on filedocumented in this encounter Additional Health Concerns Assessment Noted Time PHQ-9 Depression Total Score: 16 02/01/ 025 12:11 PM EDT documented as of this encounter Care Teams Cable Splicer Assistant Relationship Specialty Start Date End Date Jojo Jaramillo MD 230 [place] [address] PCP - General Family Medicine 12/19/18 Nelly Ma RN 505 [place] [address] Registered Nurse Family Medicine 02/19/25 Breanne Mayo 02/19/25 documented as of this encounter
--- OUTSIDE RECORDS SUMMARY | 2025-02-21 16:03 | XMS_ITS | Encounter Summary ---
Author Organization [employer] Address 75 [facility] 7t [place] [address] Care Team Providers Care Principal Systems Architect Name Role Phone Jojo Jaramillo MD Primary Care Provider [phone] Nelly Ma RN Unavailable [phone] Breanne Mayo Unavailable Encounter Details Date Type Department Care Team ([facility] Contact Info) Description 08/20/2022 Orders Only [facility] CHC MED & PEDS 505 [place] [address] Aline Echevarria LPN Social History Tobacco Use [...] Description 02/22/2025 9:30 AM EDT Office Visit [facility] MEDICINE 230 [place] [address] oJjo Jaramillo MD 230 [place] [address] 03/07/2025 9:30 AM EDT Clinical Support [facility] MED & PEDS 505 [place] [address] Santa Wade, DAGOBERTO 505 [place] [address] 05/07/2025 9:00 AM EST Office Visit [facility] OPTOMETRY [address] [place], [place] [phone] Jennifer Kelly, OD 230 [place] [address] documented as of this encounter Visit Diagnoses Not on filedocumented in this encounter Care Teams Principal Systems Architect Relationship Specialty Start Date End Date Jojo Jaramillo MD 230 [place], [place] [phone] PCP - General Family Medicine 12/19/18 Nelly Ma, DAGOBERTO 505 [place] [address] Registered Nurse Family Medicine 02/19/25 Breanne Mayo 02/19/25 documented as of this encounter
--- OUTSIDE RECORDS SUMMARY | 2025-02-21 16:03 | XMS_ITS | Encounter Summary ---
Author Organization [employer] Address [address] [facility] 7t [place] [address] Care Team Providers Care Sales Service Professional Name Role Phone Jojo Jaramillo MD Primary Care Provider [phone] Nelly Ma RN Unavailable [phone] Breanne Mayo Unavailable Encounter Details Date Type Department Care Team (Late st Contact Info) Description 07/06/2022 Orders Only [facility] MED & PEDS 505 [place] [address] Aline Echevarria LPN Social History Tobacco Use [...] 9:30 AM EDT Office Visit [facility] MEDICINE 230 [place] [address] Jojo Jaramillo MD 230 [place] [address] 03/07/2025 9:30 AM EDT Clinical Support [facility] CHC MED & PEDS 505 [place] [address] Santa Wade, RN 505 [place] [address] 05/07/2025 9:00 AM EST Office Visit [facility] OPTOMETRY [address] [place] [address] Jennifer Kelly OD 230 [place] [address] documented as of this encounter Procedures Procedure Name Priority Date/Time Associated Diagnosis Comments HEMATOXYLIN AND EOSIN STAIN Routine 07/20/2022 11:21 AM EST GLUCOSE, WHOLE BLOOD Routine 07/20/2022 10:57 AM EST documented in this encounter Results * Hematoxylin and Eosin Stain (07/20/2022 11:21 AM EST) 07/20/2022 11:2 1 AM EST 07/20/2022 12:09 PM EST [facility] LABS - 07/21/2022 4:07 PM EST ----- ------- Name: Tomy Betancourt Age/Sex: 46/M : 1975 Unit#: [id number] Attend Dr: Tremayne Pandey Re07/20/22 Status: [facility] Location: [facility] Disch: ----- ------- SPEC : [id number] RECD: 07/20/22 STATUS: CAMILA BERTRAND NUM: [id number] ANGELINA: 07/20/22-[address] [facility] [address]: Tremayne Pandey ENTERED: 07/20/22-1225 SP [...] A1. Copies To: Jojo Jaramillo MD 230 [place] [address] Tremayne Pandey [address] [place] [address] [address] [place] [address] CONTINUED ON NEXT PAGE ----- ------- Name: Tomy Betancourt Age/Sex: 46/M : 1975 Unit#: [id number] Attend Dr: Tremayne Pandey Re07/20/22 Status: [facility] Location: [facility] Disch: ----- ------- SPEC : [id number] RECD: 07/20/22 STATUS: CAMILA BERTRAND NUM: [id number] ANGELINA: 07/20/[address] [facility] [address]: Tremayne Pandey ENTERED: 07/20/22 SP TYPE: Surgical OTHR DR: Jojo Jaramillo MD ORDERED: HE Stain/3, Gross Micro L4, IHC, H. pylori ----- ------- Signed (signature on file) Chanel Portland 07/21/22 1607 ----- ------- END OF REPORT [facility] External Provider LAB BLO OD ORDERABLES Final Result Performing Organization Address [facility]/ZIP Co de Phone Number [facility] [address] [place] [address] [phone] * (ABNORMAL) GLUCOSE, WHOLE BLOOD (07/20/2022 10:57 AM EST) Glucose, Whole Blood 129(H) 60 - 115 mg/dL [facility] Comment:METER #: [id number] 07/20/2022 10:5 7 AM EST 07/20/2022 11:00 AM EST [facility] External Provider LAB BLO OD ORDERABLES Final Result Performing Organization Address [facility]/State/ZIP Co de Phone Number [facility] [address] [place] [address] [phone] documented in this encounter Visit Diagnoses Not on filedocumented in this encounter Care Teams Sales Service Professional Relationship Specialty Start Date End Date Jojo Jaramillo MD [address] [place] [address] PCP - General Family Medicine 12/19/18 Nelly Ma, DAGOBERTO [address] [place] [address] Registered Nurse Family Medicine 02/19/25 Breanne Mayo 02/19/25 documented as of this encounter
--- OUTSIDE RECORDS SUMMARY | 2025-02-21 16:03 | XMS_ITS | Encounter Summary ---
Author Organization [employer] Address 75 [facility] 7t [place] [address] Care Team Providers Care Hvac Sales Engineer Name Role Phone Jojo Jaramillo MD Primary Care Provider [phone] Nelly Ma RN Unavailable [phone] Breanne Mayo Unavailable Encounter Details Date Type Department Care Team (Late Contact Info) Description 12/17/2022 Abstract [facility] MEDICINE [address] [place] [address] [phone] Jojo Jaramillo MD [address] [place] [address] [phone] Social History Tobacco Use Types Packs/Day Years [...] Description 02/22/2025 9:30 AM EDT Office Visit [facility] [address] [place] [address] [phone] Jojo Jaramillo MD 230 [place], [place] [phone] 03/07/2025 9:30 AM EDT Clinical Support [facility] CHC MED & PEDS 505 [place] [address] Santa Wade, DAGOBERTO 505 [place], [place] 05/07/2025 9:00 AM EST Office Visit [facility] OPTOMETRY [address] [place] [address] RobinJennifer brunner, OD 230 [place] [address] documented as of this encounter Procedures Procedure Name Priority Date/Time Associated Diagnosis Comments COLONOSCOPY Routine 03/03/2022 documented in this encounter Results * Colonoscopy (03/03/2022) Colonoscopy Normal Normal 03/03/2022 [facility] Unassigned Pcp HEALTH MAINTENANCE Edited Result - Final documented in this encounter Visit Diagnoses Not on filedocumented in this encounter Additional Health Concerns Assessment Noted Time PHQ-9 Depression Total Score: 5 08/27/19 23 9:15 AM EDT documented as of this encounter Care Teams Hvac Sales Engineer Relationship Specialty Start Date End Date Jojo Jaramillo MD 230 [place] [address] PCP - General Family Medicine 12/19/18 Nelly Ma RN 505 [place], [place] [phone] Registered Nurse Family Medicine 02/19/25 Breanne Mayo 02/19/25 documented as of this encounter
--- OUTSIDE RECORDS SUMMARY | 2025-02-21 16:03 | XMS_ITS | Encounter Summary ---
Author Organization [employer] Address [address] [facility] 7t [place] [address] Care Team Providers Care Car Starter Name Role Phone Jooj Jaramillo MD Primary Care Provider [phone] Nelly Ma RN Unavailable [phone] Breanne Mayo Unavailable Encounter Details Date Type Department Care Team (Latest Contact Info) Description 03/27/[address] [facility] CONVERSIONS Dental, Provider, DDS Social History [...] 02/22/2025 9:30 AM EDT Office Visit [facility] MEDICINE 230 [place] [address] Jojo Jaramillo MD 230 [place] [address] 03/07/2025 9:30 AM EDT Clinical Support [facility] CHC MED & PEDS 505 [place] [address] Santa Wade, RN 505 [place] [address] 05/07/2025 9:00 AM EST Office Visit [facility] OPTOMETRY [address] [place] [address] Jennifer Kelly, OD 230 [place] [address] documented as of this encounter Visit Diagnoses Not on filedocumented in this encounter Care Teams Car Starter Relationship Specialty Start Date End Date Jojo Jaramillo MD 230 [place] [address] PCP - General Family Medicine 12/19/18 Nelly Ma RN [address] [place] [address] Registered Nurse Family Medicine 02/19/25 Breanne Mayo 02/19/25 documented as of this encounter
--- OUTSIDE RECORDS SUMMARY | 2025-02-21 16:03 | XMS_ITS | Encounter Summary ---
Author Organization [employer] Address 75 [facility] 7t [place] [address] Care Team Providers Care Director Translational Name Role Phone Jojo Jaramillo MD Primary Care Provider [phone] Nelly Ma RN Unavailable [phone] Breanne Mayo Unavailable Encounter Details Date Type Department Care Team (Latest Contact Info) Description 07/21/2021 Abstract [facility] CONVERSIONS Dental, Provider, DDS Social [...] Description 02/22/2025 9:30 AM EDT Office Visit [facility] MEDICINE 230 [place] [address] Jojo Jaramillo MD 230 [place] [address] 03/07/2025 9:30 AM EDT Clinical Support [facility] CHC MED & PEDS [address] [place] [address] Santa Wade, DAGOBERTO 505 [place] [address] 05/07/2025 9:00 AM EST Office Visit [facility] OPTOMETRY [address] [place] [address] Jennifer Kelly, OD 230 [place] [address] documented as of this encounter Visit Diagnoses Not on filedocumented in this encounter Care Teams Director Translational Relationship Specialty Start Date End Date Jojo Jaramillo MD 230 [place] [address] PCP - General Family Medicine 12/19/18 Nelly Ma RN [address] [place] [address] Registered Nurse Family Medicine 02/19/25 Breanne Mayo 02/19/25 documented as of this encounter
== END 2025-02-21 13:44 | disposition home or self-care (01) ==
LOC: HO.HPODS 12:36
PROVIDERS: PCP Family Medicine; Visit Provider Student in an Organized Health Care Education/Training Program
DX: M79.672 Pain in left foot (principal); S92.902A Unspecified fracture of left foot, initial encounter for closed fracture; M25.572 Pain in left ankle and joints of left foot; M19.072 Primary osteoarthritis, left ankle and foot; S99.912A Unspecified injury of left ankle, initial encounter
CPT/HCPCS: 29581; 99204

== ENCOUNTER → 2025-02-21 12:36 | Outpatient (BNVA) | payer MEDICAID, SELFPAY | PROVIDERS: PCP Family Medicine; Visit Provider Student in an Organized Health Care Education/Training Program | DX: M84.378A Stress fracture, left toe(s), initial encounter for fracture (principal); S99.912A Unspecified injury of left ankle, initial encounter; M79.672 Pain in left foot; M25.572 Pain in left ankle and joints of left foot; M19.072 Primary osteoarthritis, left ankle and foot | CPT/HCPCS: 29581; 99202 ==

== ENCOUNTER 2025-04-20 06:32 | Inpatient (IN) | payer OTHER, SELFPAY ==
[2025-04-20 06:37] VITALS: BP 140/90; PULSE 88; RESP 20; O2SAT 97; BMI 24.3
--- NOTE | 2025-04-20 06:46 | ED_ITS ---
HPI - Psych General Chief Complaint: Psychiatric Symptoms Stated Complaint: CRISIS, Hallucinations Time Seen by Provider: 04/20/25 06:40 Source: patient Mode of arrival: EMS Limitations: no limitations History of Present Illness HPI Narrative: This is 49 years old the patient presented to the emergency department with a chief complaint of visual hallucination, he says that he is so shadow of in his house he tells me also that he feels depressed and he tells with the his suicidal. Patient has prior psych hospitalization, he has a history of hypertension diabetes as well MD complaint: hallucinations Onset (ago): hour(s) (2) Duration: constant History of same: Yes Relieving factors: none Exacerbating factors: none Associated psychiatric symptoms: depression Associated symptoms: denies other symptoms Related Data Home Medications ?Medication ?Instructions ?Recorded ?Confirmed clonazepam 1 mg tablet 1 mg PO TID PRN Anxiety 08/0604/20/25 Previous Rx's ?Medication ?Instructions ?Recorded tadalafil 5 mg tablet 5 mg PO DAILY PRN sexual act ivity 03/04/21 90 days #90 tabs docusate sodium 100 mg capsule 100 mg PO BID #14 caps 08/30/23 sennosides 8.6 mg tablet (senna) 8.6 mg PO BID PRN con stipation #14 08/30/23 tabs diclofenac sodium 1 % topical gel 2 g topical QID #100 grams 01/24/25 (Voltaren Arthritis Pain) cyclobenzaprine 5 mg tablet 10 mg (2 x 5 mg) PO TID AK N Muscle 02/20/25 Spasm #30 tabs escitalopram oxalate 10 mg tablet 20 mg (2 x 10 mg) PO DAILY 02/20/25 Depression #60 tabs gabapentin 300 mg capsule 300 mg PO TID Pain/ mood #90 caps 02/20/25 lisinopril 20 mg tablet 20 mg PO DAILY HTN #30 tabs 02/20/25 metformin 500 mg tablet,extended 500 mg PO QPM Diabete s #30 tabs 02/20/25 release 24 hr naproxen 500 mg tablet 500 mg PO BIDWM pain #60 tab s 02/20/25 oxycodone 5 mg tablet 10 mg (2 x 5 mg) PO Q4H PRN sever 02/20/25 left foot fracture pain #42 tabs quetiapine 100 mg tablet 100 mg PO BEDTIME mood/insom chasidy 02/20/25 #30 tabs meloxicam 7.5 mg tablet 7.5 mg PO DAILY Left foot an d 02/21/25 ankle pain #30 tabs Allergies Allergy/AdvReac Type Severity Reaction Status Date / Time No Known Allergies (No Known Allergy Verified 04/20/25 06:43 Allergies*) Review of Systems 2 Constitutional: Constitutional: Reports no additional constitutional complaints ENT: Reports system reviewed and no additional complaints, except as documented PMFSH Past Medical History Attestation statement: The following information was validated with the patient. Medical History Left ankle injury Arthritis of left ankle Left ankle pain Anxiety Back pain Elevated cholesterol HTN (hypertension) Diabetes Surgical History H/O colonoscopy Hx of cystoscopy Hx of anterior cruciate ligament surgery Social History Social History Household Members: None Housing: Apartment Do you presently have visiting nurse or other home services: No Alcohol intake: never Comment: 5's Patient Tobacco Use Status: Current everyday Tobacco user Tobacco use type: Cigarette Second Hand Smoke Exposure: No Advance Directives: No Advance Directives Information Provided: Yes service: No Sexual orientation: Straight/Heterosexual Physical Exam 2 Exam: Exam: No acute distress comfortable in the stretcher Vital Signs: Vital Signs: Last Vital Signs Temp 98.7 F 04/20/25 07:32 Pulse 86 04/20/25 07:32 Resp 20 04/20/25 07:32 BP 118/67 04/20/25 07:32 Pulse Ox 96 04/20/25 07:32 O2 Del Method Room Air 04/20/25 07:32 BMI result Body Mass Index 24.3 no acute distress Const: General: cooperative Nutritional Appearance: average body habitus Orientation/consciousness: patient oriented x3 Limitations: no limitations HEENT: Head: Yes normal to inspection Ears: hearing grossly normal bilaterally General nose exam: Normal external nose present Face and sinus: Yes normal facial exam Throat: Yes posterior oropharynx normal Neck: Neck: Yes normal visual inspection Chest: Chest palpation & inspection: normal inspection of the chest Resp: Effort & Inspection: normal respiratory effort Auscultation: clear to auscultation bilaterally Cardio: Jugular venous distension: no JVD Rate: regular rate Rhythm: r egular rhythm GI: Inspection: Yes normal to inspection Palpation (GI): Soft to palpation, not firm and nontender Auscultation: normal bowel sounds Skin: General skin exam: no rashes or lesions noted, elasticity normal and turgor normal Lesions: no lesions Rashes: no rashes Neuro: General: patient oriented x3 Course Reevaluation(s) Reevaluation #1: seen by crisis pt will be inpatient level of care Time: 11:26 Medical Decision Making Medical Decision Making [facility] Narrative: Patient is here with visual hallucination and depression he has a history of bipolar disorder with prior psych hospitalization we will we will obtain crisis eval Differential Diagnosis Differential Diagnoses: The differential diagnosis associated with the presentation includes Psychosis/depression/anxiety Admission/Observation Consideration of admission/observation: Escalation of care including admission/observation considered Lab Data 04/20/25 07:24 04/20/25 07:24 Labs: Lab Results 04/20/25 Range/Units 07:24 WBC 3.0 L (4.8-10.8) X10*3/uL RBC 4.10 L (4.60-5.80) X10*6/uL Hgb 12.2 L (14.0-18.0) g/dl Hct 36.2 L (42.0-52.0) % MCV 88.3 (80.0-98.0) fL MCH 29.8 (27.0-33.0) pg MCHC 33.7 (31.0-36.0) g/dl RDW 13.4 (11.0-16.0) % Plt Count 153 L (160-400) X10*3/uL MPV 10.2 (9.4-12.4) fL Immature Gran % (Auto) 0.0 (0.0-0.4) % Neut % (Auto) 59.7 (45-73) % Lymph % (Auto) 25.8 (20-40) % Woods % (Auto) 9.1 (2-11) % Eos % (Auto) 4.4 H (0-4) % Baso % (Auto) 1.0 (0-2) % Lymph # (Auto) 0.8 L (1.2-4.9) X10*3/uL Woods # (Auto) 0.3 (0.1-1.2) X10*3/uL Eos # (Auto) 0.1 (0.0-0.4) X10*3/uL Baso # (Auto) 0.0 (0.0-0.2) X10*3/uL Abs Immat Gran (auto) 0.00 (0.00-0.03) X10*3/uL Absolute Neuts (auto) 1.8 L (2.0-8.3) x10*3/uL Absolute Nucleated RBC 0.000 (0.0-0.012) X10*3/uL Nucleated RBC % (auto) 0.0 (0.0-0.2) /100WBC Sodium 144 (135-145) mmol/L Potassium 4.1 (3.3-5.1) mmol/L Chloride 110 H (96-108) mmol/L Carbon Dioxide 24 (22-29) mmol/L Anion Gap 14 (12-20) BUN 33 H (9-16) mg/dL Creatinine 0.99 (0.5-1.4) mg/dL Estim Creat Clear Calc 87.3 Estimated GFR > 60 Random Glucose 70 (60-115) mg/dL Calcium 9.5 (8.4-10.2) mg/dL Total Bilirubin 0.4 (0.0-1.0) mg/dL AST 96 H (5-37) U/L ALT 38 (0-40) U/L Alkaline Phosphatase 55 (39-117) U/L Total Protein 7.0 (6.5-8.0) g/dL Albumin 4.6 (3.5-5.0) g/dL Hold Yellow Top See Note Ethyl Alcohol < 10 mg/dL Discharge Plan Discharge Clinical Impression: Hallucination, visual Bipolar disorder Qualifiers: Active/Remission status: currently active Current bipolar episode type: d epressed Current episode severity: moderate Qualified Code(s): F31.32 - Bipolar disorder, current episode depressed, moderate Prescriptions: No Action diclofenac sodium [Voltaren Arthritis Pain] 1 % gel 2 g topical QID Qty: 100 0RF Rx Instructions: apply to single elbow, wrist or hand; for hand includes palm/fingers/back of hand gabapentin 300 mg Capsule 300 mg PO TID Qty: 90 0RF naproxen 500 mg Tablet 500 mg PO BIDWM Qty: 60 0RF quetiapine 100 mg Tablet 100 mg PO BEDTIME Qty: 30 0RF lisinopril 20 mg tablet 20 mg PO DAILY Qty: 30 0RF metformin 500 mg tablet extended release 24 hr 500 mg PO QPM Qty: 30 0RF oxycodone 5 mg tablet 10 mg PO Q4H PRN (Reason: sever left foot fracture pain) Qty: 42 0RF escitalopram oxalate 10 mg tablet 20 mg PO DAILY Qty: 60 0RF cyclobenzaprine 5 mg tablet 10 mg PO TID PRN (Reason: Muscle Spasm) Qty: 30 0RF sennosides [senna] 8.6 mg tablet 8.6 mg PO BID PRN (Reason: constipation) Qty: 14 0RF docusate sodium 100 mg capsule 100 mg PO BID Qty: 14 0RF tadalafil 5 mg tablet 5 mg PO DAILY PRN (Reason: sexual activity) 90 Days Qty: 90 1RF clonazepam 1 mg tablet 1 mg PO TID PRN (Reason: Anxiety) meloxicam 7.5 mg tablet 7.5 mg PO DAILY Qty: 30 0RF Interventions: [place]-Suicide Risk Severity Scale Last Done: 04/20/25 07:28 Print Language: Japanese
--- OUTSIDE RECORDS SUMMARY | 2025-04-20 07:24 | XMS_ITS | Encounter Summary ---
Author Organization [employer] Address [address] [facility] [address] [facility] [address] [address] 7t [place] [address] Care Team Providers Care Computer Help Desk Representative Name Role Phone Jojo Jaramillo MD Primary Care Provider [phone] Nelly Ma RN Unavailable [phone] Breanne Mayo Unavailable Encounter Details Date Type Department Care Team (Late st Contact Info) Description 04/21/2023 Orders Only [facility] MEDICINE 230 [place], [place] [phone] Jojo Jaramillo MD 230 [place], [place] [phone] Psoriasis (Primary Dx); Psoriasiform dermatitis Social History [...] Care Team (Late st Contact Info) Description 04/24/2025 1:00 PM EST Office Visit [facility] MEDICINE 230 [place] [address] Jojo Jaramillo MD 230 [place] [address] 05/07/2025 9:00 AM EST Office Visit [facility] OPTOMETRY [address] [place] [address] Robin, Jennifer, OD 230 [place] [address] documented as of this encounter Visit Diagnoses Diagnosis Psoriasis- Primary Other psoriasis Psoriasiform dermatitis Other psoriasis and similar disorders documented in this encounter Additional Health Concerns Assessment Noted Time PHQ-9 Depression Total Score: 5 08/27/19 23 9:15 AM EDT documented as of this encounter Care Teams Computer Help Desk Representative Relationship Specialty Start Date End Date Jojo Jaramillo MD 230 [place] [address] PCP - General Family Medicine 12/19/18 Nelly Ma, DAGOBERTO [address] [place] [address] Registered Nurse Family Medicine 02/19/25 Breanne Mayo 02/19/25 documented as of this encounter
--- OUTSIDE RECORDS SUMMARY | 2025-04-20 07:24 | XMS_ITS | Encounter Summary ---
Author Organization [employer] Address 75 [facility] 7t [place] [address] Care Team Providers Care Press Maintainer Name Role Phone Jojo Jaramillo MD Primary Care Provider [phone] Nelly Ma RN Unavailable [phone] Breanne Mayo Unavailable Reason for Referral * Consultation (Routine) - Closed Specialty Diagnoses / Procedures Referred By Diamante de souza Referred To Contact Chiropractic Medicine Diagnoses Chronic low back pain, unspecified back pain laterality, unspecified whether sciatica present Chronic pain of right knee Bilateral leg pain Jojo Jaramillo MD [address] [place] [address] Phone: tel: fax: [facility] [address] [place] [address] Phone: tel: fax: Referral ID Status Reason Start Date Expiration Date V isits Requested Visits Authorized [id number] Closed Specialty Services Required 09/10/2024 09/10/2025 1 1 Encounter Details Date Type Department Care Team (Late st Contact Info) Description 09/10/2024 Orders Only [facility] MEDICINE [address] [place] [address] [phone] Jojo Jaramillo MD [address] [place] [address] [phone] Chronic low back pain, unspecified back pain [...] Description 04/24/2025 1:00 PM EST Office Visit [facility] MEDICINE 230 [place] [address] Jojo Jaramillo MD 230 [place] [address] 05/07/2025 9:00 AM EST Office Visit [facility] OPTOMETRY [address] [place], [place] [phone] Jennifer Kelly, OD [address] [place] [address] Scheduled Referrals Name Type Priority Associated Diagnoses [...] PM EDT Narrative 09/19/2024 8:56 PM EDT [facility] [address] [place] [address] XRay Report Signed Patient: Tomy King MR#: [id number] : 1975 Acct:[id number] Age/Sex: 48 / M ADM Date: 09/19/24 Loc: HO.ED Attending Dr: Ordering Physician: Susie Barrett Date of Service: 09/19/24 Procedure(s): XR lumbar spine 2-3V Accession Number(s): [id number] cc: Susie Barrett; Jojo Jaramillo MD CLINICAL [...] in OV> 09/19/242054 DD/ 53 TD/TT: 09/19/242053 Clinical Pharmacy Coordinator: Procedure Note Donotuseinterpreter, Image - 09/19/[address] [address] XRay Report Signed Patient: Tomy KingMR#: [id number] : 1975Acct:[id number] Age/Sex: 48 / MADM Date: 09/19/24 Loc: HO.ED Attending Dr: Ordering Physician: Susie Barrett Date of Service: 09/19/24 Procedure(s): XR lumbar spine 2-3V Accession Number(s): [id number] cc: Susie Barrett; Jojo Jaramillo MD CLINICAL [...] in OV> 09/19/242054 DD/ 53 TD/TT: 09/19/242053 Clinical Pharmacy Coordinator: [facility] External Provider IMG XR PROCEDURES Edited [...] documented as of this encounter Care Teams Press Maintainer Relationship Specialty Start Date End Date Jojo Jaramillo MD 230 [place] [address] PCP - General Family Medicine 12/19/18 Nelly Ma RN [address] [place] [address] Registered Nurse Family Medicine 02/19/25 Breanne Mayo 02/19/25 documented as of this encounter
--- OUTSIDE RECORDS SUMMARY | 2025-04-20 07:24 | XMS_ITS | Encounter Summary ---
Author Organization [employer] Address 75 [facility] 7t [place] [address] Care Team Providers Care Computer Systems Hardware Analyst Name Role Phone Jojo Jaramillo MD Primary Care Provider [phone] Nelly Ma RN Unavailable [phone] Breanne Mayo Unavailable Reason for Visit * Reason Comments Med Refill Encounter Details Date Type Department Care Team ([facility] st Contact Info) Description 06/24/2023 Refill [facility] MEDICINE [address] [place], [place] [phone] Name, MD Gabe 230 [place] [address] Social History Tobacco Use Types Packs/Day Years [...] Description 04/24/2025 1:00 PM EST Office Visit [facility] MEDICINE [address] [place] [address] Jojo Jaramillo MD 230 [place] [address] 05/07/2025 9:00 AM EST Office Visit [facility] OPTOMETRY [address] [place] [address] Robin, Jennifer, OD 230 [place] [address] documented as of this encounter Visit Diagnoses Not on filedocumented in this encounter Additional Health Concerns Assessment Noted Time PHQ-9 Depression Total Score: 5 08/27/19 23 9:15 AM EDT documented as of this encounter Care Teams Computer Systems Hardware Analyst Relationship Specialty Start Date End Date Jojo Jaramillo MD 230 [place] [address] PCP - General Family Medicine 12/19/18 Nelly Ma RN [address] [place] [address] Registered Nurse Family Medicine 02/19/25 Breanne Mayo 02/19/25 documented as of this encounter
--- OUTSIDE RECORDS SUMMARY | 2025-04-20 07:25 | XMS_ITS | Encounter Summary ---
Author Organization [employer] Address 75 [facility] 7t [place] [address] Care Team Providers Care High School Music Instructor Name Role Phone Jojo Jaramillo MD Primary Care Provider [phone] Nelly Ma RN Unavailable [phone] Breanne Mayo Unavailable Encounter Details Date Type Department Care Team ([facility] Contact Info) Description 04/17/2025 Telephone [facility] [address] [place] [address] Santa Wade RN [address] [place] [address] Social History Tobacco Use Types Packs/Day Years Used Date Smoking Tobacco: Every Day Cigarettes Passive Smoke Exposure: Current Smokeless Tobacco: [...] Date Recorded Patient Health Questionnaire-9 Score 16 03/09/2025 Patient Health Questionnaire-9 Score 16 03/09/2025 Last PHQ-9: Questionnaire Data Not on file 1 Housing Stability Answer Date Recorded What is your housing situation today? I have housing today, but I am worried about losing housing in the future 03/09/[address] you li ve. Do you have problems with any of the following? None of the above 03/09/2025 Food Insecurity Answer Date Recorded Within the past 12 months, y ou worried that your food would run out before you got money to buy more: Often true 03/09/2025 Within the past 12 months,th e food you bought just didn't last and you didn't have enough money to get more: Often true 08/2024 Transportation Answer Date Recorded In the past [...] Date Recorded Patient Health Questionnaire-2 Score 6 03/09/2025 Internet Access Answer Date Recorded Internet Access [...] Telephone Encounter - Santa Wade RN - 04/17/2025 1:38 PM EST TC to pt, no answer. BAT BOY/GIRL appointment on 04/26 cancelled d/t provider unavailability. Unable to lvm.F/u with PCP 04/24. documented in this encounter Plan of Treatment Upcoming Encounters Date Type Department Care Team (Late st Contact Info) Description 04/24/2025 1:00 PM EST Office Visit [facility] MEDICINE 230 [place] [address] Jojo Jaramillo MD 230 [place] [address] 05/07/2025 9:00 AM EST Office Visit [facility] OPTOMETRY [address] [place] [address] Jennifer Kelly, OD 230 [place] [address] documented as of this encounter Visit Diagnoses Not on filedocumented in this encounter Additional Health Concerns Assessment Noted Time PHQ-9 Depression Total Score: 16 025 1:25 PM EDT documented as of this encounter Care Teams High School Music Instructor Relationship Specialty Start Date End Date Jojo Jaramillo MD 230 [place] [address] PCP - General Family Medicine 12/19/18 Nelly Ma RN [address] [place] [address] Registered Nurse Family Medicine 02/19/25 Breanne Mayo 02/19/25 documented as of this encounter
--- OUTSIDE RECORDS SUMMARY | 2025-04-20 07:25 | XMS_ITS | Encounter Summary ---
Author Organization [employer] Address [address] 7t [place] [address] Care Team Providers Care Public Health Microbiologist Name Role Phone Jojo Jaramillo MD Primary Care Provider [phone] Nelly Ma RN Unavailable [phone] Breanne Mayo Unavailable Reason for Visit * Reason Comments Med Refill Encounter Details Date Type Department Care Team ([facility] st Contact Info) Description 12/25/2024 Refill [facility] MED & PEDS [address] [place], [place] [phone] Dima Castillo MD 230 [place] [address] Arthralgia of both knees; Chronic midline low [...] Description 04/24/2025 1:00 PM EST Office Visit [facility] MEDICINE 230 [place] [address] Jojo Jaramillo MD 230 [place] [address] 05/07/2025 9:00 AM EST Office Visit [facility] OPTOMETRY [address] [place] [address] Robin, Jennifer, OD 230 [place] [address] documented as of this encounter Visit Diagnoses Diagnosis Arthralgia of both knees Chronic midline low back pain, unspecified whether sciatica present documented in this encounter Additional Health Concerns Assessment Noted Time PHQ-9 Depression Total Score: 16 025 1:34 PM EDT documented as of this encounter Care Teams Public Health Microbiologist Relationship Specialty Start Date End Date Jojo Jaramillo MD [address] [place] [address] PCP - General Family Medicine 12/19/18 Nelly Ma RN 505 [place] [address] Registered Nurse Family Medicine 02/19/25 Breanne Mayo 02/19/25 documented as of this encounter
--- OUTSIDE RECORDS SUMMARY | 2025-04-20 07:25 | XMS_ITS | Encounter Summary ---
Author Organization [employer] Address [address] [address] 7t [place] [address] Care Team Providers Care Senior Procurement Manager Name Role Phone Jojo Jaramillo MD Primary Care Provider [phone] Nelly Ma RN Unavailable [phone] Breanne Mayo Unavailable Encounter Details Date Type Department Care Team ([facility] st Contact Info) Description 11/29/2024 Orders Only [facility] MEDICINE 230 [place], [place] [phone] Jojo Jaramillo MD 230 [place], [place] [phone] Social History Tobacco Use Types Packs/Day Years [...] Description 04/24/2025 1:00 PM EST Office Visit [facility] MEDICINE 230 [place] [address] Jojo Jaramillo MD [address] [place] [address] 05/07/2025 9:00 AM EST Office Visit [facility] OPTOMETRY [address] [place] [address] Robin, Jennifer, OD 230 [place] [address] documented as of this encounter Visit Diagnoses Not on filedocumented in this encounter Additional Health Concerns Assessment Noted Time PHQ-9 Depression Total Score: 5 04/16/20 24 7:02 AM EST documented as of this encounter Care Teams Senior Procurement Manager Relationship Specialty Start Date End Date Jojo Jaramillo MD [address] [place] [address] PCP - General Family Medicine 12/19/18 Nelly Ma RN [address] [place] [address] MARIAA Jhaveri [address] Registered Nurse Family Medicine 02/19/25 Breanne Mayo 02/19/25 documented as of this encounter
--- OUTSIDE RECORDS SUMMARY | 2025-04-20 07:25 | XMS_ITS | Encounter Summary ---
Author Organization [employer] Address [address] 7t [place] [address] Care Team Providers Care Director Of Grants Name Role Phone Jojo Jaramillo MD Primary Care Provider [phone] Nelly Ma RN Unavailable [phone] Breanne Mayo Unavailable Encounter Details Date Type Department Care Team (Late st Contact Info) Description 01/27/2024 Orders Only [facility] MEDICINE 230 [place], [place] [phone] Jojo Jaramillo MD 230 [place], [place] [phone] Social History Tobacco Use Types Packs/Day Years [...] Description 04/24/2025 1:00 PM EST Office Visit [facility] MEDICINE 230 [place] [address] Jojo Jaramillo MD 230 [place] [address] 05/07/2025 9:00 AM EST Office Visit [facility] OPTOMETRY [address] [place] [address] Robin, Jennifer, OD 230 [place] [address] documented as of this encounter Visit Diagnoses Not on filedocumented in this encounter Additional Health Concerns Assessment Noted Time PHQ-9 Depression Total Score: 19 024 10:43 AM EDT documented as of this encounter Care Teams Director Of Grants Relationship Specialty Start Date End Date Jojo Jaramillo MD 230 [place] [address] PCP - General Family Medicine 12/19/18 Nelly Ma RN 505 [place] [address] Registered Nurse Family Medicine 02/19/25 Breanne Mayo 02/19/25 documented as of this encounter
--- OUTSIDE RECORDS SUMMARY | 2025-04-20 07:25 | XMS_ITS | Encounter Summary ---
Author Organization [employer] Address 75 [facility] 7t [place] [address] Care Team Providers Care Smt Machine Operator Name Role Phone Jojo Jaramillo MD Primary Care Provider [phone] Nelly Ma RN Unavailable [phone] Breanne Mayo Unavailable Encounter Details Date Type Department Care Team (Late Contact Info) Description 10/09/2022 Orders Only [facility] MEDICINE [address] [place] [address] Norma Ram LPN Social History Tobacco Use [...] Department Care Team (Late Contact Info) Description 04/24/2025 1:00 PM EST Office Visit [facility] MEDICINE 230 [place] [address] Jojo Jaramillo MD 230 [place] [address] 05/07/2025 9:00 AM EST Office Visit [facility] OPTOMETRY [address] [place] [address] Jennifer Kelly, OD 230 [place] [address] documented as of this encounter Visit Diagnoses Not on filedocumented in this encounter Additional Health Concerns Assessment Noted Time PHQ-9 Depression Total Score: 5 08/27/19 23 9:15 AM EDT documented as of this encounter Care Teams Smt Machine Operator Relationship Specialty Start Date End Date Jojo Jaramillo MD 230 [place] [address] PCP - General Family Medicine 12/19/18 Nelly Ma, DAGOBERTO [address] [place] [address] Registered Nurse Family Medicine 02/19/25 Breanne Mayo 02/19/25 documented as of this encounter
--- OUTSIDE RECORDS SUMMARY | 2025-04-20 07:25 | XMS_ITS | Encounter Summary ---
Author Organization [employer] Address 75 [facility] 7t [place] [address] Care Team Providers Care Sap Bw Architect Name Role Phone Jojo Jaramillo MD Primary Care Provider [phone] Nelly Ma RN Unavailable [phone] Breanne Mayo Unavailable Reason for Referral * Medications - Closed Specialty Diagnoses / Procedures Referred By Diamante de souza Referred To Contact Diagnoses Bilateral leg pain Chronic low back pain, unspecified back pain laterality, unspecified whether sciatica present Jojo Jaramillo MD [address] [place] [address] Phone: tel: fax: Referral ID Status Reason Start Date Expiration Date Visits Re quested Visits Authorized [id number] Closed 1 1 Encounter Details Date Type Department Care Team (Late st Contact Info) Description 03/15/2025 Orders Only [facility] MEDICINE [address] [place] [phone] Jojo Jaramillo MD [address] [place] [address] [phone] Bilateral leg pain; Chronic low back pain, unspecified back [...] Visit [facility] MEDICINE 230 [place] [address] Jojo Jaramillo MD 230 [place] [address] 05/07/2025 9:00 AM EST Office Visit [facility] OPTOMETRY [address] [place] [address] Jennifer Kelly, OD 230 [place] [address] documented as of this encounter Visit Diagnoses Diagnosis Bilateral leg pain Pain in soft tissues of limb Chronic low back pain, unspecified back pain laterality, unspecified whether sciatica present documented in this encounter Additional Health Concerns Assessment Noted Time PHQ-9 Depression Total Score: 16 025 1:25 PM EDT documented as of this encounter Care Teams Sap Bw Architect Relationship Specialty Start Date End Date Jojo Jaramillo MD 230 [place] [address] PCP - General Family Medicine 12/19/18 Nelly Ma, DAGOBERTO 505 [place] [address] Registered Nurse Family Medicine 02/19/25 Breanne Mayo 02/19/25 documented as of this encounter
--- OUTSIDE RECORDS SUMMARY | 2025-04-20 07:25 | XMS_ITS | Encounter Summary ---
Author Organization [employer] Address [address] [facility] [address] 7t [place] [address] Care Team Providers Care Supplemental Manager Name Role Phone Jojo Jaramillo MD Primary Care Provider [phone] Nelly Ma RN Unavailable [phone] Breanne Mayo Unavailable Encounter Details Date Type Department Care Team (Late st Contact Info) Description 12/28/2024 Orders Only [facility] MEDICINE [address] [place], [place] [phone] Jojo Jaramillo MD 230 [place] [address] Chronic low back pain, unspecified back pain laterality, unspecified whether sciatica present; Chronic pain of right knee; Bilateral leg pain; Other chronic pain; Sprain of left ankle, unspecified ligament, subsequent encounter; Chronic pain of left ankle; Closed fracture of lumbar vertebra, unspecified fracture morphology, unspecified lumbar vertebral level, initial encounter ([facility]) Social History Tobacco Use Types [...] Description 04/24/2025 1:00 PM EST Office Visit [facility] MEDICINE 230 [place] [address] Jojo Jaramillo MD 230 [place] [address] 05/07/2025 9:00 AM EST Office Visit [facility] OPTOMETRY [address] [place] [address] Jennifer Kelly, KATHI 230 [place] [address] documented as of this encounter Visit Diagnoses [...] morphology, unspecified lumbar vertebral level, initial encounter (CMS/HCC) ([facility]) documented in this encounter Additional Health Concerns Assessment Noted Time PHQ-9 Depression Total Score: 16 025 1:34 PM EDT documented as of this encounter Care Teams Supplemental Manager Relationship Specialty Start Date End Date Jojo Jaramillo MD 230 [place] [address] PCP - General Family Medicine 12/19/18 Nelly Ma RN 505 [place] [address] Registered Nurse Family Medicine 02/19/25 Breanne Mayo 02/19/25 documented as of this encounter
--- OUTSIDE RECORDS SUMMARY | 2025-04-20 07:25 | XMS_ITS | Encounter Summary ---
Author Organization [employer] Address [address] [facility] [address] [facility] [address] 7t [place] [address] Care Team Providers Care Stave Jointer Name Role Phone Jojo Jaramillo MD Primary Care Provider [phone] Nelly Ma RN Unavailable [phone] Breanne Mayo Unavailable Encounter Details Date Type Department Care Team ([facility] st Contact Info) Description 11/27/2024 Orders Only [facility] MEDICINE 230 [place], [place] [phone] Jojo Jaramillo MD 230 [place], [place] [phone] Social History Tobacco Use Types Packs/Day Years [...] 04/24/2025 1:00 PM EST Office Visit [facility] MEDICINE 230 [place] [address] Jojo Jaramillo MD [address] [place] [address] 05/07/2025 9:00 AM EST Office Visit [facility] OPTOMETRY [address] [place] [address] Robin, Jennifer, OD 230 [place] [address] documented as of this encounter Visit Diagnoses Not on filedocumented in this encounter Additional Health Concerns Assessment Noted Time PHQ-9 Depression Total Score: 5 04/16/20 24 7:02 AM EST documented as of this encounter Care Teams Stave Jointer Relationship Specialty Start Date End Date Jojo Jaramillo MD 230 [place] [address] PCP - General Family Medicine 12/19/18 Nelly Ma RN [address] [place] [address] MARIAA Jhaveri [address] Registered Nurse Family Medicine 02/19/25 Breanne Mayo 02/19/25 documented as of this encounter
--- OUTSIDE RECORDS SUMMARY | 2025-04-20 07:25 | XMS_ITS | Encounter Summary ---
Author Organization [employer] Address 75 [facility] 7t [place] [address] Care Team Providers Care Pathology Laboratory Technologist Name Role Phone Jojo Jaramillo MD Primary Care Provider [phone] Nelly Ma RN Unavailable [phone] Breanne Mayo Unavailable Reason for Visit * Reason Comments Med Refill Encounter Details Date Type Department Care Team ([facility] st Contact Info) Description 03/21/2025 Refill [facility] MEDICINE 230 [place], [place] [phone] Jojo Jaramillo MD [address] [place], [place] [phone] Anxiety Social History Tobacco Use Types Packs/Day Years [...] Description 04/24/2025 1:00 PM EST Office Visit [facility] MEDICINE 230 [place] [address] Jojo Jaramillo MD 230 [place] [address] 05/07/2025 9:00 AM EST Office Visit [facility] OPTOMETRY [address] [place] [address] Robin, Jennifer, OD 230 [place] [address] documented as of this encounter Visit Diagnoses Diagnosis Anxiety Anxiety state, unspecified documented in this encounter Additional Health Concerns Assessment Noted Time PHQ-9 Depression Total Score: 16 025 1:25 PM EDT documented as of this encounter Care Teams Pathology Laboratory Technologist Relationship Specialty Start Date End Date Jojo Jaramillo MD 230 [place] [address] PCP - General Family Medicine 12/19/18 Nelly Ma RN [address] [place] [address] Registered Nurse Family Medicine 02/19/25 Breanne Mayo 02/19/25 documented as of this encounter
--- OUTSIDE RECORDS SUMMARY | 2025-04-20 07:25 | XMS_ITS | Encounter Summary ---
Author Organization [employer] Address 75 [facility] 7t [place] [address] Care Team Providers Care Geothermal Sheet Metal Worker Name Role Phone Jojo Jaramillo MD Primary Care Provider [phone] Nelly Ma RN Unavailable [phone] Breanne Mayo Unavailable Encounter Details Date Type Department Care Team (Latest Contact Info) Description 03/27/2019 Abstract [facility] CONVERSIONS Dental, Provider, DDS Social History [...] Description 04/24/2025 1:00 PM EST Office Visit [facility] MEDICINE 230 [place] [address] Jojo Jaramillo MD [address] [place] [address] 05/07/2025 9:00 AM EST Office Visit [facility] OPTOMETRY [address] [place] [address] Jennifer Kelly, OD 230 [place] [address] documented as of this encounter Visit Diagnoses Not on filedocumented in this encounter Care Teams Geothermal Sheet Metal Worker Relationship Specialty Start Date End Date Jojo Jaramillo MD [address] [place] [address] PCP - General Family Medicine 12/19/18 Nelly Ma RN [address] [place] [address] Registered Nurse Family Medicine 02/19/25 Breanne Mayo 02/19/25 documented as of this encounter
--- OUTSIDE RECORDS SUMMARY | 2025-04-20 07:25 | XMS_ITS | Encounter Summary ---
Author Organization [employer] Address 75 [facility] 7t [place] [address] Care Team Providers Care Shoe Patternmaker Name Role Phone Jojo Jaramillo MD Primary Care Provider [phone] Nelly Ma RN Unavailable [phone] Breanne Mayo Unavailable Reason for Referral * Consultation (Urgent) - Closed Specialty Diagnoses / Procedures Referred By Diamante de souza Referred To Contact Diagnoses Chronic low back pain, unspecified back pain laterality, unspecified whether sciatica present Bilateral leg pain Lumbar spondylosis Jojo Jaramillo MD [address] [place] [address] Phone: tel: fax: [facility] Referral ID Status Reason Start Date Expiration Date V isits Requested Visits Authorized [id number] Closed Specialty Services Required 08/09/2024 08/09/2025 1 1 Encounter Details Date Type Department Care Team (Late st Contact Info) Description 08/09/2024 Orders Only [facility] [address] [place] [address] [phone] Jojo Jaramillo MD [address] [place] [address] [phone] Chronic low back pain, unspecified back pain [...] Description 04/24/2025 1:00 PM EST Office Visit [facility] [address] [place] [address] Jojo Jaramillo MD 230 [place] [address] 05/07/2025 9:00 AM EST Office Visit [facility] [address] [place] [address] Jennifer Kelly, OD 230 [place] [address] Scheduled Referrals Name Type Priority Associated Diagnoses [...] documented as of this encounter Care Teams Shoe Patternmaker Relationship Specialty Start Date End Date Jojo Jaramillo MD 230 [place] [address] PCP - General Family Medicine 12/19/18 Nelly Ma, RN [address] [place] [address] Registered Nurse Family Medicine 02/19/25 Breanne Mayo 02/19/25 documented as of this encounter
--- OUTSIDE RECORDS SUMMARY | 2025-04-20 07:25 | XMS_ITS | Encounter Summary ---
Author Organization [employer] Address 75 [facility] 7t [place] [address] Care Team Providers Care Dramatic Arts Historian Name Role Phone Jojo Jaramillo MD Primary Care Provider [phone] Nelly Ma RN Unavailable [phone] Breanne Mayo Unavailable Reason for Visit * Reason Onset Date Comments Appointment Request 08/17/2024 Encounter Details Date Type Department Care Team ([facility] Contact Info) Description 08/17/2024 Telephone [facility] 230 [place], [place] [phone] Jojo Jaramillo MD 230 [place], [place] [phone] Appointment Request Social History Tobacco Use Types [...] R/s Apt from 08/17/24. Contact pt at [phone] documented in this encounter Plan of Treatment Upcoming Encounters Date Type Department Care Team ([facility] st Contact Info) Description 04/24/2025 1:00 PM EST Office Visit [facility] 230 [place] [address] Jojo Jaramillo MD 230 [place] [address] 05/07/2025 9:00 AM EST Office Visit [facility] OPTOMETRY [address] [place] [address] Jennifer Kelly OD 230 [place] [address] documented as of this encounter Visit Diagnoses Not on filedocumented in this encounter Additional Health Concerns Assessment Noted Time PHQ-9 Depression Total Score: 5 04/16/20 24 7:02 AM EST documented as of this encounter Care Teams Dramatic Arts Historian Relationship Specialty Start Date End Date Jojo Jaramillo MD 230 [place] [address] PCP - General Family Medicine 12/19/18 Nelly Ma RN 505 [place] [address] Registered Nurse Family Medicine 02/19/25 Breanne Mayo 02/19/25 documented as of this encounter
--- OUTSIDE RECORDS SUMMARY | 2025-04-20 07:25 | XMS_ITS | Encounter Summary ---
Author Organization [employer] Address 75 [facility] 7t [place] [address] Care Team Providers Care Labor Crew Supervisor Name Role Phone Jojo Jaramillo MD Primary Care Provider [phone] Nelly Ma RN Unavailable [phone] Breanne Mayo Unavailable Reason for Referral * Consultation (Urgent) - Closed Specialty Diagnoses / Procedures Referred By Diamante de souza Referred To Contact Podiatry Diagnoses Ingrown toenail of both feet Jojo Jaramillo MD 230 [place] [address] Phone: tel: fax: Bob Du DPM [address] [facility] 1st Floor (Left) [place] [address] Phone: tel: fax: Referral ID Status Reason Start Date Expiration Date V isits Requested Visits Authorized [id number] Closed Specialty Services Required 09/15/2023 09/14/2024 1 1 Encounter Details Date Type Department Care Team (Late st Contact Info) Description 09/15/2023 Orders Only [facility] 230 [place], [place] [phone] Jojo Jaramillo MD 230 [place] [address] Ingrown toenail of both feet [...] Description 04/24/2025 1:00 PM EST Office Visit [facility] 230 [place] [address] Jojo Jaramillo MD 230 [place] [address] 05/07/2025 9:00 AM EST Office Visit [facility] OPTOMETRY [address] [place] [address] Jennifer Kelly, OD 230 [place] [address] Scheduled Referrals Name Type Priority Associated Diagnoses [...] documented as of this encounter Care Teams Labor Crew Supervisor Relationship Specialty Start Date End Date Jojo Jaramillo MD 230 [place] [address] PCP - General Family Medicine 12/19/18 Nelly Ma RN [address] [place] [address] Registered Nurse Family Medicine 02/19/25 Breanne Mayo 02/19/25 documented as of this encounter
--- OUTSIDE RECORDS SUMMARY | 2025-04-20 07:25 | XMS_ITS | Encounter Summary ---
Author Organization [employer] Address 75 [facility] 7t [place] [address] Care Team Providers Care Shipping/Receiving Clerk Name Role Phone Jojo Jaramillo MD Primary Care Provider [phone] Nelly Ma RN Unavailable [phone] Breanne Mayo Unavailable Encounter Details Date Type Department Care Team ([facility] st Contact Info) Description 12/22/2024 Orders Only [facility] 230 [place], [place] [phone] Jojo Jaramillo MD 230 [place], [place] [phone] Social History Tobacco Use Types Packs/Day Years [...] Description 04/24/2025 1:00 PM EST Office Visit [facility] 230 [place] [address] Jojo Jaramillo MD 230 [place] [address] 05/07/2025 9:00 AM EST Office Visit [facility] OPTOMETRY [address] [place] [address] Robin, Jennifer, OD 230 [place] [address] documented as of this encounter Visit Diagnoses Not on filedocumented in this encounter Additional Health Concerns Assessment Noted Time PHQ-9 Depression Total Score: 16 025 1:34 PM EDT documented as of this encounter Care Teams Shipping/Receiving Clerk Relationship Specialty Start Date End Date Jojo Jaramillo MD 230 [place] [address] PCP - General Family Medicine 12/19/18 Nelly Ma RN [address] [place] [address] [place] [address] Registered Nurse Family Medicine 02/19/25 Breanne Mayo 02/19/25 documented as of this encounter
--- OUTSIDE RECORDS SUMMARY | 2025-04-20 07:25 | XMS_ITS | Encounter Summary ---
Author Organization [employer] Address 75 [facility] 7t [place] [address] Care Team Providers Care Safety And Skill Based Pay Manager Name Role Phone Jojo Jaramillo MD Primary Care Provider [phone] Nelly Ma RN Unavailable [phone] Breanne Mayo Unavailable Reason for Referral * Consultation (Urgent) - Closed Specialty Diagnoses / Procedures Referred By Contjuan m de souza Referred To Contact Physical Therapy Diagnoses Chronic low back pain, unspecified back pain laterality, unspecified whether sciatica present Jojo Jaramillo MD 230 [place] [address] Phone: tel: fax: Physical Therapy, [facility] [address] [facility] [address] [place] [address] Phone: tel: fax: Referral ID Status Reason Start Date Expiration Date V isits Requested Visits Authorized [id number] Closed Specialty Services Required 03/02/2024 03/02/2025 1 1 Scheduling Instructions Patient would like to have PT at [facility] because the other PT has copays. Encounter Details Date Type Department Care Team (Late st Contact Info) Description 02/24/2024 Orders Only [facility] [address] [place] [address] [phone] Jojo Jaramillo MD 230 [place], [place] [phone] Chronic low back pain, unspecified back pain [...] Description 04/24/2025 1:00 PM EST Office Visit [facility] 230 [place] [address] Jojo Jaramillo MD 230 [place] [address] 05/07/2025 9:00 AM EST Office Visit [facility] OPTOMETRY [address] [place] [address] Jennifer Kelly, OD 230 [place] [address] Scheduled Referrals Name Type Priority Associated Diagnoses [...] documented as of this encounter Care Teams Safety And Skill Based Pay Manager Relationship Specialty Start Date End Date Jojo Jaramillo MD [address] [place] [address] PCP - General Family Medicine 12/19/18 Nelly Ma RN [address] [place] [address] Registered Nurse Family Medicine 02/19/25 Breanne Mayo 02/19/25 documented as of this encounter
--- OUTSIDE RECORDS SUMMARY | 2025-04-20 07:25 | XMS_ITS | Encounter Summary ---
Author Organization [employer] Address [address] [facility] [address] 7t [place] [address] Care Team Providers Care Art Tracer Name Role Phone Jojo Jaramillo MD Primary Care Provider [phone] Nelly Ma RN Unavailable [phone] Breanne Mayo Unavailable Encounter Details Date Type Department Care Team ([facility] Contact Info) Description 08/20/2022 Orders Only [facility] [address] [place], [place] [phone] Aline Echevarria LPN Social History Tobacco Use [...] Description 04/24/2025 1:00 PM EST Office Visit [facility] MEDICINE 230 [place], [place] [phone] Jojo Jaramillo MD 230 [place], [place] [phone] 05/07/2025 9:00 AM EST Office Visit [facility] OPTOMETRY 267 [place], [place] [phone] Jennifer Kelly, OD 230 [place] [address] documented as of this encounter Visit Diagnoses Not on filedocumented in this encounter Care Teams Art Tracer Relationship Specialty Start Date End Date Jojo Jaramillo MD 230 [place], [place] [phone] PCP - General Family Medicine 12/19/18 Nelly Ma RN [address] [place] [address] Registered Nurse Family Medicine 02/19/25 Breanne Mayo 02/19/25 documented as of this encounter
--- OUTSIDE RECORDS SUMMARY | 2025-04-20 07:25 | XMS_ITS | Encounter Summary ---
Author Organization [employer] Address 75 [facility] 7t [place] [address] Care Team Providers Care Forming Operator Name Role Phone Jojo Jaramillo MD Primary Care Provider [phone] Nelly Ma RN Unavailable [phone] Breanne Mayo Unavailable Reason for Visit * Reason Comments Med Refill Encounter Details Date Type Department Care Team ([facility] st Contact Info) Description 05/01/2024 Refill [facility] 230 [place], [place] [phone] Jojo Jaramillo MD 230 [place], [place] [phone] Social History Tobacco Use Types Packs/Day Years [...] Description 04/24/2025 1:00 PM EST Office Visit [facility] 230 [place] [address] Jojo Jaramillo MD 230 [place] [address] 05/07/2025 9:00 AM EST Office Visit [facility] OPTOMETRY [address] [place] [address] Robin, Jennifer, OD 230 [place] [address] documented as of this encounter Visit Diagnoses Not on filedocumented in this encounter Additional Health Concerns Assessment Noted Time PHQ-9 Depression Total Score: 5 04/16/20 24 7:02 AM EST documented as of this encounter Care Teams Forming Operator Relationship Specialty Start Date End Date Jojo Jaramillo MD 230 [place] [address] PCP - General Family Medicine 12/19/18 Nelly Ma RN [address] [place] [address] Registered Nurse Family Medicine 02/19/25 Breanne Mayo 02/19/25 documented as of this encounter
--- OUTSIDE RECORDS SUMMARY | 2025-04-20 07:25 | XMS_ITS | Encounter Summary ---
Author Organization [employer] Address 75 [facility] 7t [place] [address] Care Team Providers Care Rehabilitation Coordinator Name Role Phone Jojo Jaramillo MD Primary Care Provider [phone] Nelly Ma RN Unavailable Breanne Mayo Unavailable Reason for Visit * Reason Comments Med Refill Encounter Details Date Type Department Care Team ([facility] st Contact Info) Description 12/28/2024 Refill [facility] 230 [place], [place] [phone] Jojo Jaramillo MD 230 [place], [place] [phone] Closed fracture dislocation of lumbar spine, initial encounter ([facility]) Social History Tobacco Use Types [...] Description 04/24/2025 1:00 PM EST Office Visit [facility] 230 [place] [address] Jojo Jaramillo MD 230 [place] [address] 05/07/2025 9:00 AM EST Office Visit [facility] OPTOMETRY [address] [place] [address] Robin, Jennifer, OD 230 [place] [address] documented as of this encounter Visit Diagnoses Diagnosis Closed fracture dislocation of lumbar spine, initial encounter ([facility]) ([facility]) documented in this encounter Additional Health Concerns Assessment Noted Time PHQ-9 Depression Total Score: 16 025 1:34 PM EDT documented as of this encounter Care Teams Rehabilitation Coordinator Relationship Specialty Start Date End Date Jojo Jaramillo MD [address] [place] [address] PCP - General Family Medicine 12/19/18 Nelly Ma RN [address] [place] [address] Registered Nurse Family Medicine 02/19/25 Breanne Mayo 02/19/25 documented as of this encounter
--- OUTSIDE RECORDS SUMMARY | 2025-04-20 07:25 | XMS_ITS | Encounter Summary ---
Author Organization [employer] Address 75 [facility] 7t [place] [address] Care Team Providers Care Mill Set Up Name Role Phone Jojo Jaramillo MD Primary Care Provider [phone] Nelly Ma RN Unavailable [phone] Breanne Mayo Unavailable Reason for Referral * Consultation (Routine) - Closed Specialty Diagnoses / Procedures Referred By Diamante de souza Referred To Contact Physical Therapy Diagnoses Chronic pain of right knee Bilateral leg pain Chronic midline low back pain, unspecified whether sciatica present Arthralgia of both knees Jojo Jaramillo MD [address] [place] [address] Phone: tel: fax: [facility] Physical Therapy [address] [place] [address] Phone: tel: fax: Referral ID Status Reason Start Date Expiration Date V isits Requested Visits Authorized [id number] Closed Specialty Services Required 02/18/2024 02/17/2025 1 1 Encounter Details Date Type Department Care Team (Late st Contact Info) Description 02/18/2024 Orders Only [facility] [address] [place] [address] [phone] Jojo Jaramillo MD [address] [place] [address] [phone] Chronic pain of right knee (Primary Dx); [...] Description 04/24/2025 1:00 PM EST Office Visit [facility] 230 [place] [address] Jojo Jaramillo MD 230 [place] [address] 05/07/2025 9:00 AM EST Office Visit [facility] OPTOMETRY [address] [place] [address] Jennifer Kelly, OD 230 [place] [address] Scheduled Referrals Name Type Priority Associated Diagnoses [...] Assessment Noted Time PHQ-9 Depression Total Score: 024 10:43 AM EDT documented as of this encounter Care Teams Mill Set Up Relationship Specialty Start Date End Date Jojo Jaramillo MD [address] [place] [address] PCP - General Family Medicine 12/19/18 Nelly Ma RN [address] [place] [address] Registered Nurse Family Medicine 02/19/25 Breanne Mayo 02/19/25 documented as of this encounter
--- OUTSIDE RECORDS SUMMARY | 2025-04-20 07:25 | XMS_ITS | Encounter Summary ---
Author Organization [employer] Address 75 [facility] 7t [place] [address] Care Team Providers Care Display Maker Name Role Phone Jojo Jaramillo MD Primary Care Provider [phone] Nelly Ma RN Unavailable [phone] Breanne Mayo Unavailable Reason for Visit * Reason Comments Med Refill Encounter Details Date Type Department Care Team (Late Contact Info) Description 12/06/2022 Refill [facility] [address] [place] [address] [phone] Dima Castillo MD [address] [place] [address] [phone] Social History Tobacco Use Types Packs/Day Years [...] Description 04/24/2025 1:00 PM EST Office Visit [facility] [address] [place] [address] [phone] Jojo Jaramillo MD 230 [place], [place] [phone] 05/07/2025 9:00 AM EST Office Visit [facility] OPTOMETRY [address] [place], [place] [phone] Jennifer Kelly, OD 230 [place] [address] documented as of this encounter Visit Diagnoses Not on filedocumented in this encounter Additional Health Concerns Assessment Noted Time PHQ-9 Depression Total Score: 5 08/27/19 23 9:15 AM EDT documented as of this encounter Care Teams Display Maker Relationship Specialty Start Date End Date Jojo Jaramillo MD 230 [place], [place] [phone] PCP - General Family Medicine 12/19/18 Nelly Ma RN [address] [place] [address] Registered Nurse Family Medicine 02/19/25 Breanne Mayo 02/19/25 documented as of this encounter
--- OUTSIDE RECORDS SUMMARY | 2025-04-20 07:25 | XMS_ITS | Encounter Summary ---
Author Organization [employer] Address [address] [facility] [address] 7t [place] [address] Care Team Providers Care Watch And Clock Repair Clerk Name Role Phone Jojo Jaramillo MD Primary Care Provider [phone] Nelly Ma RN Unavailable [phone] Breanne Mayo Unavailable Encounter Details Date Type Department Care Team ([facility] st Contact Info) Description 02/28/2025 Telephone [facility] MEDICINE 230 [place], [place] [phone] Jojo Jaramillo MD 230 [place], [place] [phone] Social History Tobacco Use Types Packs/Day Years [...] Telephone Encounter - Jojo Jaramillo MD - 02/28/2025 12:20 PM EDT 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 Contacted with [facility] pharmacy. Patient picked up #60 tabs of oxycodone on 02/22/25, which are 20-day supply. Pharmacist recommends a new prescription to be sent few days before 03/13/25 since he will not be able to berry picker machine operator opioid prescription (as long as the same dosing instruction) until then. Tried to call the patient, but patient's phone is not set up for a message. Will try again. documented in this encounter Plan of Treatment Upcoming Encounters Date Type Department Care Team (Late st Contact Info) Description 04/24/2025 1:00 PM EST Office Visit [facility] MEDICINE [address] [place] [address] Jojo Jaramillo MD 230 [place] [address] 05/07/2025 9:00 AM EST Office Visit [facility] OPTOMETRY [address] [place] [address] Jennifer Kelly, OD 230 [place] [address] documented as of this encounter Visit Diagnoses Not on filedocumented in this encounter Additional Health Concerns Assessment Noted Time PHQ-9 Depression Total Score: 16 025 12:11 PM EDT documented as of this encounter Care Teams Watch And Clock Repair Clerk Relationship Specialty Start Date End Date Jojo Jaramillo MD 230 [place] [address] PCP - General Family Medicine 12/19/18 Nelly Ma, DAGOBERTO 505 [place] [address] Registered Nurse Family Medicine 02/19/25 Breanne Mayo 02/19/25 documented as of this encounter
--- OUTSIDE RECORDS SUMMARY | 2025-04-20 07:25 | XMS_ITS | Clinical Summary ---
Author Organization [employer] Address [address] [place] [address] Care Team Providers Care Electric Motor Controls Assembler Name Role Phone Jojo Gilmore MD Primary Care Provider [phone] Nelly Ma RN Unavailable Breanne Mayo Unavailable Allergies No known active allergies Medications * This document contains information received from the source organization and may not represent a complete record from that organization. fluticasone (Flonase) 50 MCG/ACT nasal sprayIndications: Allergic rhinitis, unspecified seasonality, unspecified trigger INSTILL 1-2 SPRAYS IN EACH NOSTRIL ONCE DAILY NEEDED 16 g 2 3 Active Diclofenac Sodium 1 % gel Apply to affected area once daily as needed for pain 150 g 11 3 Active ketoconazole (NIZOral) 2 % cream APPLY TOPICALLY TO THE AFFECTED AREA(S) ONCE DAILY rehan ventilar la piel 30 g 3 4 Active Additional Information Patient not taking.Reported on 03/09/2025 nicotine polacrilex (Commit) 2 MG lozenge Dissolve 1 lozenge (2 mg) in the mouth if needed for smoking cessation. 100 lozenge 4 Active escitalopram (Lexapro) 20 MG tablet Take 1 tablet (20 mg) by mouth Once daily. 90 tablet 3 4 Active glucose blood (FREESTYLE LITE) test stripIndications: Type 2 diabetes mellitus without complications (HCC) USE DIRECTED TO TEST BLOOD SUGAR TWICE DAILY NEEDED 100 strip 11 5 Active metFORMIN XR (Glucophage-XR) 500 MG 24 hr tablet TAKE 1 TABLET BY MOUTH EVERY DAY IN THE EVENING WITH A MEAL 90 tablet 3 5 Active TRUEplus Lancets 33G misc USE DIRECTED TO TEST BLOOD SUGAR TWICE DAILY NEEDED 100 each 11 5 Active lisinopril 20 MG tablet TAKE 1 TABLET BY MOUTH EVERY DAY IN THE MORNING 90 tablet 3 5 Active cholecalciferol (Vitamin D-3) 25 MCG (1000 UT) tablet Take 1 tablet (25 mcg) by mouth Once per day. 90 tablet 3 5 Active atorvastatin (Lipitor) 40 MG tablet TAKE 1 TABLET BY MOUTH ONCE DAILY 90 tablet 3 5 Active Acetaminophen Extra Strength 500 MG tabletIndications :Chronic low back pain with left-sided sciatica, unspecified back pain laterality TAKE 1 TO 2 TABLETS EVERY 8 HOURS NEEDED FOR FEVER OR PAIN 60 tablet 5 Active gabapentin (Neurontin) 300 MG capsule Take 1 capsule by mouth 3 times daily. 5 Active cyclobenzaprine (Flexeril) 5 MG tablet Take 2 tablets by mouth if needed in the morning, at noon, and at bedtime for muscle spasms. Active QUEtiapine (SEROquel) 100 MG tablet Take 1 tablet by mouth at bedtime. Active clonazePAM (KlonoPIN) 1 MG tabletIndications :Anxiety Take 1 tablet (1 mg) by mouth 3 times daily. 84 tablet 5 Active oxyCODONE (Roxicodone) 15 MG immediate release tabletIndications :Bilateral leg pain,Chronic low back pain, unspecified back pain laterality, unspecified whether sciatica present Take 1 tablet (15 mg) by mouth every 4 (four) hours if needed (Maximum Daily Dose = 3 tabs). Maximum Daily Dose = 3 tabs Do not start before March 18, 2025. 84 tablet 5 Active Active Problems Problem Noted Date Diagnosed Date Chronic ulcer of toe of left foot, limited to breakdown of skin ([facility]) 01/31/2025 Sciatica of left side 01/31/2025 Fracture of lumbar spine ([facility]) 12/18/2024 Assessment & Plan (12/18/2024 12:11 PM EDT): - waiting for an appointment with orthopedist and PT - will increase oxycodone dose from 5 to 10 mg q6h prn - continue celecoxib; emphasized its judicious and responsible use Chronic pain of left ankle 12/18/2024 Assessment & Plan (12/18/2024 12:18 PM EDT): - s/p fall. Evaluated in [facility] ED. CT on 11/22/24 was negative [...] if still elevated Moderate recurrent major depression (CMS/HCC) Assessment & Plan (02/01/2025 12:15 PM EDT): >>ASSESSMENT AND PLAN FOR DEPRESSION WRITTEN ON 08/26/2022 10:02 AM BY NALDO HAMMONDS -Previously tried SSRI, recently, Lexapro which was ineffective -Engaged in Counseling at [facility] -Continue Behavioral health services -Changed Lexapro to Buspirone -Will Rx Clonazepam 0.5mg prn, max 10 tablets per month Assessment & Plan (02/01/2025 12:15 PM EDT): >>ASSESSMENT AND PLAN FOR DEPRESSION WRITTEN ON 12/21/2022 11:57 AM BY JOJO GILMORE MD -Previously tried SSRI, recently, Lexapro which was ineffective. Pt is hesitant to try Buspirone or hydroxyzine -Engaged in Counseling at [facility], and started seeing psychiatrist -Continue [...] Buspirone or hydroxyzine -Engaged in Counseling at [facility], and started seeing psychiatrist -Continue [...] Buspirone or hydroxyzine -Engaged in Counseling at [facility], and started seeing psychiatrist -Continue [...] BY JOJO GILMORE MD -Previously connected with [facility] -PHQ9 score 19 today; he declines to return to behavioral health service provider as he speaks with integrated behavioral health service at work and has copay for each visit -continue escitalopram 10 mg daily -agreed to prescribe clonazepam 1 mg tid under PERFORATOR [employer]ADER agreement -reassess Dx Assessment & Plan (02/01/2025 12:15 PM EDT): >>ASSESSMENT AND PLAN FOR DEPRESSION WRITTEN ON 04/16/2024 7:14 AM BY JOJO GILMORE MD -Previously connected with [facility] -PHQ9 score 19 in January 2024; he declines to return to behavioral health service provider as he speaks with integrated behavioral health service at work and has copay for each visit -PHQ9 score has improved today, score 5 -continue escitalopram 10 mg daily -agreed to prescribe clonazepam 1 mg tid under PERFORATOR LOADER agreement -reassess Dx Acute midline thoracic back pain 12/04/2024 Sprain of left ankle 12/04/2024 Long-term current use of opiate analgesic 2024 Chronic pain 07/19/2024 Assessment & Plan (07/19/2024 4:53 AM EST): - consider evaluating and treating for fibromyalgia - patient has already tried acupuncture - patient has tried PT - recommended to reschedule appointment with PERFORATOR LOADER nurse - recommended to consider trying duloexetine (Cymbalta) - consider participating group therapy Dyslipidemia 01/21/2024 Assessment & Plan (02/21/2025 4:50 PM EDT): - current medication: atorvastatin 40 mg at bedtime - last lipid profile: 08/26/23 (without statin) - continue working on lifestyle modifications - recheck lipid profile and hepatic panel Assessment & Plan (07/11/2024 5:44 PM EST): [...] panel Mood disorder 01/21/2024 Assessment & Plan (02/23/2025 11:50 AM EDT): - Hx bipolar disorder - most recent hospitalization due to suicidal ideation in Feb 2025. Medications were adjusted. - current medications: escitalopram 20 mg daily; clonazepam 1 mg tid; quetiapine 100 mg qhs - discussed about trial of duloexetine (Cymbalta) since he has chronic pain and his pain may partly be due to fibromyalgia. - previously with [facility] - has an appointment with new behavioral health service - continue current Tx plan - he was able to contract his safety today Assessment & Plan (12/18/2024 12:09 PM EDT): - Hx bipolar disorder - most recent behavioral health service provider: [facility] - recently being treated for anxiety and depression - most recently prescribed medications: clonazepam 1 mg tid; escitalopram 10 mg daily; trazodone 50 mg at bedtime - patient dislikes the side effect of trazodone - agreed to continue clonazepam and escitalopram - referred to PERFORATOR LOADER RN for clonazepam - patient declines behavioral health service because he speaks with our integrated behavioral health service clinician - discussed about trial of duloexetine (Cymbalta) since he has chronic pain and his pain may partly be due to fibromyalgia. Assessment & Plan (07/19/2024 4:50 AM EST): - Hx bipolar disorder - most recent behavioral health service provider: [facility] - recently being treated for anxiety and depression - most recently prescribed medications: clonazepam 1 mg tid; escitalopram 10 mg daily; trazodone 50 mg at bedtime - patient dislikes the side effect of trazodone - agreed to continue clonazepam and escitalopram - referred to PERFORATOR LOADER RN for clonazepam - patient declines behavioral health service because he speaks with our integrated behavioral health service clinician - discussed about trial of duloexetine (Cymbalta) since he has chronic pain and his pain may partly be due to fibromyalgia. Assessment & Plan (01/21/2024 3:48 PM EDT): - Hx bipolar disorder - most recent behavioral health service provider: [facility] - recently being treated for anxiety and depression - most recently prescribed medications: clonazepam 1 mg tid; escitalopram 10 mg daily; trazodone 50 mg at bedtime - patient dislikes the side effect of trazodone - agreed to continue clonazepam and escitalopram - refer to PERFORATOR LOADER RN for clonazepam - patient declines behavioral [...] get, needs authorization - schedule appointment with PERFORATOR LOADER nurse - been going to PT without [...] 50 mg BID - schedule appointment with PERFORATOR LOADER nurse Esophageal reflux 10/08/2023 Gastritis 10/08/2023 Ingrown toenail of both feet 09/15/2023 Assessment & Plan (10/12/2023 11:27 AM EDT): - patient was seen by hospital superintendent recently Psoriasis 11/06/2022 Assessment & Plan (04/12/2024 [...] 11:26 AM EDT): - was evaluated by [facility], Dr. Aquino - prescribed Betamethasone, which has been effective - upcoming appointment with Dr. Santos in Jul 2023 Assessment & Plan (06/27/2023 12:56 PM EST): - was evaluated by [facility], Dr. Aquino - prescribed Betamethasone, which has been effective - upcoming appointment with Dr. Santos in Jul 2023 Assessment & Plan (12/15/2022 10:52 AM EDT): - was evaluated by [facility], Dr. Aquino - prescribed Betamethasone, which has [...] (04/16/2024 7:15 AM EST): -Previously connected with [facility] -GAD7 score 19 in Jan 2024; he declined to return to behavioral health service provider as he speaks with integrated behavioral health service at work and has copay for each visit -GAD7 score 4 today -continue escitalopram 10 mg daily -agreed to prescribe clonazepam 1 mg tid under PERFORATOR LOADER agreement -reassess Dx Assessment & Plan (01/21/2024 3:50 PM EDT): -Previously connected with [facility] -GAD7 score 19 today; he declines to return to behavioral health service provider as he speaks with integrated behavioral health service at work and has copay for each visit -continue escitalopram 10 mg daily -agreed to prescribe clonazepam 1 mg tid under PERFORATOR LOADER agreement -reassess Dx Assessment & Plan (10/12/2023 11:26 AM EDT): Currently connected with [facility] Continue current treatment per Dr. Marr Patient is considering about not continuing with the agency because of high copay for each visit. Assessment & Plan (06/27/2023 12:53 PM EST): Currently connected with [facility] Continue current treatment per Dr. [...] to fear of reinjuring ACL -Seen by [facility] on 11/06/22 -Dx right knee patellofemoral [...] to fear of reinjuring ACL -Seen by [facility] on 11/06/22 -Dx right knee patellofemoral OA - patient has tried NSAIDs, APAP, and celecoxib, which were all ineffective - will prescribe tramadol under PERFORATOR LOADER agreement Assessment & Plan (12/21/2022 11:53 AM EDT): - h/o ACL tear -Pt is hesitant to receive steroid injection -Pt stopped being physically active due to fear of reinjuring ACL -Seen by [facility] on 11/06/22 -Dx right knee patellofemoral OA -Rx celecoxib; since he has not picked up November prescription, renewed the same script form orthopedist Assessment & Plan (08/26/2022 10:01 AM EDT): -Pt has h/o ACL tear -Pt is hesitant to receive steroid injection -Pt stopped being physically-active due to fear of reinjuring ACL -will refer to an Orthopedist Essential hypertension 07/14/2018 Assessment & Plan (02/21/2025 4:50 PM EDT): -Goal BP <130/80 per ACC/AHA, -Continue Lisinopril 30 mg daily -Work on lifestyle modifications -Improve Medication adherence -Advised to continue checking home BP -f/u in 3 months - patient was referred to burning machine operator but he is not enthusiastic to go to the appointment Assessment & Plan (12/18/2024 12:05 PM EDT): Goal BP <130/80 per ACC/AHA, BP is not at goal -Continue Lisinopril 30 mg daily -Work on lifestyle modifications -Improve Medication adherence -Advised to continue checking home BP -f/u in 3 months - patient was referred to burning machine operator but he is not enthusiastic to go to the appointment Assessment & Plan (07/11/2024 5:43 PM EST): Goal BP < 140/90 per JNC-8, <130/80 per ACC/AHA, BP is not at goal -Continue Lisinopril 30 mg daily -Work on lifestyle modifications -Improve Medication adherence -Advised to continue checking home BP -f/u in 3 months - patient was referred to burning machine operator but he is not enthusiastic to go to the appointment Assessment & Plan (04/10/2024 11:54 AM EST): Goal BP < 140/90 per JNC-8, <130/80 per ACC/AHA, BP is not at goal -Continue Lisinopril 30 mg daily -Work on lifestyle modifications -Improve Medication adherence -Advised to continue checking home BP -f/u in 3 months - patient was referred to burning machine operator but he is not enthusiastic to go to the appointment Assessment & Plan (01/18/2024 4:05 PM EDT): Goal BP < 140/90 per JNC-8, <130/80 per ACC/AHA, BP is not at goal -Continue Lisinopril 20 mg daily -Work on lifestyle modifications -Improve Medication adherence -Advised to continue checking home BP -f/u in 3 months - patient was referred to burning machine operator but he is not enthusiastic to go [...] diabetes mellitus without complication Assessment & Plan (02/21/2025 4:50 PM EDT): - A1c 6.3% on 12/07/24, improved from 6.4% on 07/11/24 -Continue Metformin 500 mg daily -Encouraged patient to improve medication. -Continue working on lifestyle modification Last eye exam: 05/01/24 at [facility]. No retinopathy Last foot exam: 06/22/23 Last lipid profile: 11/30/24 TRIG 134; CHOL 183; LDL 119; HDL 38 Last microalbumin test- 08/26/23 no microalbuminuria Follow up in 4-6 mo or prn Assessment & Plan (12/10/2024 8:04 AM EDT): - A1c 6.3% on 12/07/24, improved from 6.4% on 07/11/24 -Continue Metformin 500 mg daily -Encouraged patient to improve medication. -Continue working on lifestyle modification Last eye exam: 05/01/24 at [facility]. No retinopathy Last foot [...] lifestyle modification Last eye exam: 05/01/24 at [facility]. No retinopathy Last foot exam: 06/22/23 Last lipid profile: 08/26/23 Last microalbumin test- 08/26/23 no microalbuminuria Follow up in 4-6 mo or prn Assessment & Plan (04/12/2024 8:43 PM EST): - A1c 5.8% on 01/18/24 -Continue Metformin 500 mg daily -Encouraged patient to improve medication. -Continue working on lifestyle modification Last eye exam: 07/31/22 at [facility]. No retinopathy Last foot [...] lifestyle modification Last eye exam: 07/31/22 at [facility]. No retinopathy Last foot [...] lifestyle modification Last eye exam: 07/31/22 at [facility]. No retinopathy Last foot [...] lifestyle modification Last eye exam: 07/31/22 at [facility]. No retinopathy Last foot exam: 06/22/23 Last [...] lifestyle modification Last eye exam: 07/31/22 at [facility]. No retinopathy Last foot [...] lifestyle modification Last eye exam: 07/31/22 at [facility]. No retinopathy Last foot [...] organization. Date Type Department Care Team Description 04/17/2025 Telephone [facility] [address] [place] [address] Santa Wade, DAGOBERTO 04/13/2025 Patient Outreach [address] [phone] Jojo Gilmore MD Care Coordination (SDOH f/u) 04/13/2025 Patient Outreach [address] [address] Jojo Gilmore MD Care Management (C3CM- f/u call) 04/05/2025 Patient Outreach [address] [address] Jojo Gilmore MD Care Coordination (SDOH f/u) 04/05/2025 Patient Outreach [address] [address] Jojo Gilmore MD Care Management (C3CM- f/u call. Not available.) 04/04/2025 Telephone [facility] [address] [place] [address] Santa Wade, RN 04/04/2025 Telephone [facility] [address] [place] [address] Santa Wade, RN 04/02/2025 Patient Outreach [address] [address] Jose Maria Motta Recovery Supports 03/27/2025 Patient Outreach [address] [phone] Jojo Gilmore MD Care Coordination (SDOH) 03/23/2025 Patient Outreach [address] [address] Jojo Gilmore MD Care Management (C3CM- f/u call) 03/23/2025 Plan of Care Documentation [facility] [place] [address] 03/23/2025 Plan of Care Documentation [facility] [place] [address] 03/21/2025 Refill [facility] [address] [facility] [place] [address] Jojo Gilmore MD Anxiety 03/20/2025 Patient Outreach [facility] [place] [address] Osmin Moya RC Recovery Supports 03/19/2025 Patient Outreach [facility] [place] [address] Osmin Moya RC Recovery Supports 03/19/2025 Patient Outreach [address] [address] Dane Steele RC Recovery Supports 03/19/2025 Telephone [facility] [address] Jojo Gilmore MD Prior Auth Prescription; Prior Authorization ( PA: Oxycodone 15MG) 03/15/2025 Orders Only [facility] [place] [address] Jojo Gilmore MD Bilateral leg pain; Chronic low back pain, unspecified back pain laterality, unspecified whether sciatica present 03/13/2025 Refill [facility] [place] [address] Jojo Gilmore MD Bilateral leg pain; Chronic low back pain, unspecified back pain laterality, unspecified whether sciatica present 03/12/2025 Patient Outreach [facility] [facility] [place] [address] Jose Maria Motta RC Recovery Supports 03/12/2025 Patient Outreach [address] [address] Demetrio Yao RC Recovery Supports 03/09/2025 Orders Only [facility] [address] [place] [address] Jojo Gilmore MD Bilateral leg pain; Chronic low back pain, unspecified back pain laterality, unspecified whether sciatica present 03/09/2025 Patient Outreach [address] [address] Jojo Gilmore MD Care Coordination ([facility] f/u) 03/09/2025 Patient Outreach [address] [address] Jojo Gilmore MD Care Management (C3- initial assessment/ enrollment) 03/07/2025 Telephone [facility] [address] [place] [address] Santa Wade, RN 02/28/[address] [address] Jojo Gilmore MD 02/23/2025 Patient Outreach [address] [address] Jojo Gilmore MD Care Coordination (CM/CHW outreach) 02/22/2025 9:30 AM EDT Office Visit [address] [address] Jojo Gilmore MD Dyslipidemia (Primary Dx); Essential hypertension; Type 2 diabetes mellitus without complication, unspecified whether detention insulin use (CMS/HCC); Bilateral leg pain; Chronic low back pain, unspecified back pain laterality, unspecified whether sciatica present; Anxiety; Unspecified fracture of left toe(s), initial encounter for closed fracture; Mood disorder (CMS/HCC); Moderate recurrent major depression (CMS/HCC); Long-term current use of opiate analgesic 02/22/2025 Refill [facility] [address] [place], [place] [id number] Santa Wade, RN Bilateral leg pain; Chronic low back pain, unspecified back pain laterality, unspecified whether sciatica present; Anxiety 02/22/[address] [address] Jojo Gilmore MD Prior Authorization ( PA: Oxycodone (Roxicodone)/ Clonazepam) 02/22/2025 Travel 02/22/2025 Patient Outreach [facility] [address] [place] [address] Jojo Gilmore MD 02/22/2025 Patient Outreach [facility] [address] [place] [address] Demetrio Yao Recovery Supports 02/21/2025 Telephone [facility] [address] [place] [address] Jazlyn Knutson, RN Hospital Follow-up 02/20/2025 Patient Outreach [facility] [address] [place] [address] Jojo Gilmore MD Care Coordination (CM/CHW outreach) 02/20/2025 Patient Outreach [facility] [address] [place] [address] Jojo Gilmore MD Care Coordination (CM/CHW outreach) 02/19/2025 Patient Outreach [address] [address] Jojo Gilmore MD Care Management (C3CM- chart review) 02/19/2025 Patient Outreach [address] [address] Jojo Gilmore MD 02/13/2025 Orders Only GENERIC EXTERNAL DATA DEPARTMENT Provider, Generic External Data 02/12/2025 Patient Outreach [facility] [address] [place] [address] Jose Maria Motta Recovery Supports 02/09/2025 Telephone [facility] [address] [place] [address] Fatemeh Avery [place] 02/09/2025 Patient Outreach [facility] [address] [place] [address] Demetrio Yao Recovery Supports 02/09/2025 Telephone [facility] [address] [place] [address] Jojo Gilmore MD Care Coordination (PT1) 02/09/2025 Orders Only [address] [address] Jojo Gilmore MD Sciatica of left side 02/09/2025 Telephone [facility] [address], [place] [address] Jazlyn Knutson, RN 02/08/2025 Refill [facility] [address], [place] [address] Sara Pimentel, CHUTE LOADER Sciatica of left side 02/08/2025 Patient Outreach [facility] [address]lette Jim[address], [place] [address] Demetrio Yao Recovery Supports 02/08/2025 Telephone [facility] [address], [place] [address] Analilia Varghese, DAGOBERTO 02/08/2025 Telephone [facility] [address], [place] [address] Analilia Varghese, DAGOBERTO 02/06/2025 Patient Outreach [facility] [address], [place] [address] Avtar Mendoza Recovery Supports 02/02/2025 Patient Outreach [facility] [address], [place] [address] Jojo Gilmore MD Pre-visit Planning (Pre visit planning LVM ) 02/02/2025 Telephone [facility] [address], [place] [address] Jojo Gilmore MD 02/02/2025 Orders Only [facility] [address], [place] [address] Jojo Gilmore MD Chronic low back pain with left-sided sciatica, unspecified back pain laterality (Primary Dx); Sciatica of left side; Sprain of left ankle, unspecified ligament, subsequent encounter; Anxiety; Mood disorder (CMS/HCC) 01/31/2025 9:30 AM EDT Office Visit [facility] [address], [place] [address] Sara Pimentel, CHUTE LOADER Sciatica of left side (Primary Dx); Chronic low back pain with left-sided sciatica, unspecified back pain laterality; Chronic ulcer of toe of left foot, limited to breakdown of skin (CMS/HCC); Sprain of left ankle, unspecified ligament, subsequent encounter 01/31/2025 Telephone [facility] [address]lette Jimenez, [place] [address] Jojo Gilmore MD ER Follow-up 01/31/2025 Travel 01/30/2025 Telephone [facility] [address] [place] [address] Jojo Gilmore MD ER Follow-up from Last 3 Months Immunizations Immunization Administration [...] Sign Reading Time Taken Comments Blood Pressure 110/60 02/22/2025 9:45 AM EDT Pulse 85 02/22/2025 9:45 AM EDT Temperature 36.4 C (97.5 F) 02/22/2025 9:45 AM EDT Respiratory Rate 14 02/22/2025 9:45 AM EDT Oxygen Saturation 98% 02/22/2025 9:45 AM EDT Inhaled Oxygen Concentration - - Weight 83.9 kg (185 lb) 01/31/2025 9:40 AM EDT Height 172.7 cm (5' 8 ) 01/31/2025 9:40 AM EDT Body Mass Index 28.13 01/31/2025 9:40 AM EDT Plan of Treatment Upcoming Encounters Date Type Department Care Team (Late st Contact Info) Description 04/24/2025 1:00 PM EST Office Visit [facility] MEDICINE [address] [place], [place] [phone] Jojo Gilmore MD 230 [place], [place] [phone] 05/07/2025 9:00 AM EST Office Visit [facility] OPTOMETRY [address] [place], [place] [phone] Jennifer Kelly, OD [address] [place] [address] Health Maintenance Due Date Last Done Comments [...] 03/09/2025 025, 07/11/2024, 01/18/2024, Additional history exists Depression Monitoring 09/07/2025 03/09/2025, 025 Lipid Panel 11/30/2025 11/30/2024, 08/06, 03/31/2022, Additional history exists Disability Screening 12/07/2025 12/07/2024 Zoster Vaccines (1 of 2) 12/10/2025 Diabetes: Foot Exam 01/31/2026 01/31/2025, 01/31/2025, 01/31/2025, Additional history exists Tobacco Screening 02/23/2026 02/23/2025 Alcohol/Substance Use Screening 03/09/2026 03/09/2025 SDOH Screening 03/09/2026 03/09/2025 Eye Exam 05/01/2026 05/01/2024, 04/08, 05/01/2024, Additional [...] 2 diabetes mellitus without complication, unspecified whether detention insulin use (CMS/HCC) LIPID PANEL WITH REFLEX TO DIRECT LDL Routine 11/30/2024 8:42 AM EDT Type 2 diabetes mellitus without complication, unspecified whether detention insulin use (CMS/HCC) ALBUMIN, RANDOM URINE W/CREATININE Routine 08/26/2023 1:26 PM EDT Type 2 diabetes mellitus without complication, unspecified whether detention insulin use (CMS/HCC) HEPATITIS C AB W/REFL [...] PM EDT Narrative 02/13/2025 2:10 PM EDT [place] [address] XRay Report Signed Patient: Tomy King MR#: [id number] : 1975 Acct:[id number] Age/Sex: 49 / M ADM Date: 02/13/25 Loc: [id number] 326-[address]: Rama Turner HEARING SCREEN COORDINATOR Ordering Physician: Gypsy Long DNP Date of Service: 02/13/25 Procedure(s): XR foot LT min 3V Accession Number(s): [id number] cc: Gypsy Long DNP; Jojo Gilmore MD [...] 02/13/25 1407 DD/ 1330 TD/TT: 02/13/25 1340 Liquor Department Manager: Procedure Note Donotuseinterpreter, Image - 02/13/2025 [place] [address] XRay Report Signed Patient: Tomy KingMR#: [id number] : 1975Acct:[id number] Age/Sex: 49 / MADM Date: 02/13/25 Loc: [id number] 326-[address]: Rama Turner HEARING SCREEN COORDINATOR Ordering Physician: Gypsy Long DNP Date of Service: 02/13/25 Procedure(s): XR foot LT min 3V Accession Number(s): [id number] cc: Gypsy Long DNP; Jojo Gilmore MD [...] 02/13/25 1407 DD/ 1330 TD/TT: 02/13/25 1340 Liquor Department Manager: [facility] External Provider IMG XR PROCEDURES Final Result * Lower Extremity Venous Duplex (02/13/2025 1:21 PM EDT) 02/13/2025 1:21 PM EDT Narrative [facility] - 02/13/2025 1:46 PM EDT [address] [address] Ultrasound Report Signed Patient: Tomy King MR#: [id number] : 1975 Acct:[id number] Age/Sex: 49 / M ADM Date: 02/13/25 Loc: [id number] 326-[address]: Rama Turner HEARING SCREEN COORDINATOR Ordering Physician: Gypsy Long DNP Date of Service: 02/13/25 Procedure(s): US venous duplex LE LT Accession Number(s): [id number] cc: Gypsy Long DNP; Jojo Gilmore MD [...] 02/13/25 1343 DD/ 1321 TD/TT: 02/13/25 1327 Liquor Department Manager: Procedure Note Donotuseinterpreter, Image - 02/13/2025 [place] [address] Ultrasound Report Signed Patient: Wilbur King#: [id number] : 1975Acct:[id number] Age/Sex: 49 / MADM Date: 02/13/25 Loc: [id number] 326-[address]: Rama Turner HEARING SCREEN COORDINATOR Ordering Physician: Gypsy Long DNP Date of Service: 02/13/25 Procedure(s): US venous duplex LE LT Accession Number(s): [id number] cc: Gypsy Long DNP; Jojo Gilmore MD [...] 02/13/25 1343 DD/ 1321 TD/TT: 02/13/25 1327 Liquor Department Manager: [facility] External Provider CV VASC ULAR PROCEDURES Final Result Performing Organization Address [facility] Co de Phone Number [facility] [address] [place] [phone] * (ABNORMAL) Urinalysis with Reflex to Microscopic (02/13/2025 8:03 AM EDT) Color Urine Yellow [facility] Appearance Urine Clear [facility] PH 7.5 5.0 - 9.0 [facility] Glucose Urine UA 500(A) Negative mg/dL [facility] Urine Blood Negative Negative [facility] Specific [place] - Urine 1.015 1.005 - 1.025 [facility] Urine Protein Negative Neg-Trace mg/dL [facility] Urine Ketones Negative Negative mg/dL [facility] Nitrite Urine Negative Negative [facility] Leukocyte Esterase Urine Negative Negative [facility] 02/13/2025 8:03 AM EDT 02/13/2025 8:08 AM EDT Generic External Data Provider LAB URINE ORDERAB LES Final Result Performing Organization Address [facility] Co de Phone Number [facility] [address] [place] [phone] * (ABNORMAL) Drug Monitoring, Panel 1, Screen, Urine (02/13/2025 8:03 AM EDT) Opiate Screen Urine POSITIVE(A) Not Detect [facility] Comment:Opiate cut-off is 30 0 ng/mL.Positive results are unconfirmed and should not be used fornon-medical purposes. Barbiturates, Urine Not Detected Not Detect [facility] Comment:Barbiturate cut-off is 200 ng/mL.Positive results are unconfirmed and should not be used fornon-medical purposes. Phencyclidine Screen Urine Not Detected Not Detect [facility] Comment:Phencyclidine cut-of f is 25 ng/mL.Positive results are unconfirmed and should not be used fornon-medical purposes. Amphetamine Screen Urine Not Detected Not Detect [facility] Comment:Amphetamine cut-off is 1000 ng/mL.Positive results are unconfirmed and should not be used fornon-medical purposes. Benzodiazepines Screen Urine Not Detected Not Detect [facility] Comment:Benzodiazepine cut-o ff is 200 ng/mL.Positive results are unconfirmed and should not be used fornon-medical purposes. Cocaine Screen Urine Not Detected Not Detect [facility] Comment:Cocaine cut-off is 3 00 ng/mL.Positive results are unconfirmed and should not be used fornon-medical purposes. Cannabinoid Screen Urine Not Detected Not Detect [facility] Comment:Cannabinoid cut-off is 50 ng/mL.Positive results are unconfirmed and should not be used fornon-medical purposes. Methadone Screen, Urine Not Detected Not Detect ng/mL [facility] Comment:Methadone cut-off is 300 ng/mL.Positive results are unconfirmed and should not be used fornon-medical purposes. FENTANYL URINE Not Detected Not Detect [facility] Comment:Fentanyl cut-off is 1 ng/mL.Positive results are unconfirmed and should not be used fornon-medical purposes. Oxycodone Urine Screen Positive(A) Not Detect ng/mL [facility] Comment:Oxycodone cut-off is 100 ng/mL.Positive results are unconfirmed and should not be used fornon-medical purposes. Buprenorphine Screen Positive(A) Not Detect ng/mL [facility] Comment:Buprenorphine cut-of f is 5 ng/mL.Positive results are unconfirmed and should not be used fornon-medical purposes. 02/13/2025 8:03 AM EDT 02/13/2025 8:08 AM EDT us Generic External Data Provider LAB URINE ORDERAB LES Final Result [facility] [address] [place] [phone] * (ABNORMAL) POCT glycosylated hemoglobin (Hgb A1c) (12/07/2024 11:46 AM EDT) Hemoglobin A1C 6.3(A) 4.0 - 5.7 % QC Media Lot # [id number] Lot# Expiration Date Blood Capillary blood specimen / Unknown 12/07/2024 11:46 AM EDT us Jojo Gilmore MD POINT OF CARE TEST ENTER/EDIT OR DERABLES Final Result * (ABNORMAL) Lipid Panel with Reflex to Direct LDL (11/30/2024 8:42 AM EDT) Triglycerides 134 <150 mg/dL [facility] Comment:Desirable Triglyceri de: less than 150 mg/dLBorderline High Triglyceride 150-199 mg/dLHigh Triglyceride: 200-499 mg/dLVery High Triglyceride: greater than or equal to 5OO mg/dL Cholesterol 183 <200 mg/dL [facility] Comment:Desirable Cholestero l: less than 200 mg/dLBorderline High Cholesterol: 200-239 mg/dLHigh Cholesterol: greater than 239 mg/dL LDL Cholesterol Calculated 119(H) <100 mg/dL [facility] Comment:Desirable LDL: less than 100 mg/dLNear Optimal/Above Optimal LDL: 110- 129 mg/dLBorderline High LDL: 130-159 mg/dLHigh LDL: 160-189 mg/dLVery High LDL: greater than or equal to 190 mg/dL HDL Cholesterol 38(L) >40 mg/dL [facility] Comment:Desirable HDL: great er than 40 mg/dL Note: This HDL assay may give artificially low results in patients with liver disease. Blood 11/30/2024 8:42 AM EDT 11/30/2024 11:23 AM EDT Jojo Gilmore MD LAB BLOOD ORDERABLES Final Resul t Performing Organization Address [facility] de Phone Number [facility] [address] [place] [phone] * Albumin, Random Urine W/Creatinine (08/26/2023 1:26 PM EDT) Creatinine, Urine 172.30 mg/dL [facility] Microalbumin Urine 6.0 mg/L [facility] Microalbum Creatinine Ratio Ur 3.4 <30 ug/mg cr [facility] Comment:Albumin/Creatinine R atio Reference Ranges: Normal: < 30 ug/mg creatinine Microalbuminuria: 30 - 300 ug/mg creatinineClinical Albuminuria: > 300 ug/mg creatinine Urine 08/26/2023 1:26 PM EDT 08/26/2023 4:31 PM EDT Jojo Gilmore MD LAB URINE ORDERABLES Final Resul t Performing Organization Address [facility] Co de Phone Number [facility] [address] [place] [phone] * Hepatitis C Antibody with Reflex to HCV, RNA, Quantitative, Real-Time PCR (08/26/2023 1:20 PM EDT) Hepatitis C Antibody Nonreactive Nonreactive [facility] Comment:Antibodies to HCV no t detected; does not exclude early acuteHCV infection. Blood Venous blood specimen / Unknown 08/26/2023 1:20 PM EDT 08/26/2023 3:59 PM EDT Jojo Gilmore MD LAB BLOOD ORDERABLES Final Resul t Performing Organization Address [facility] Co de Phone Number [facility] [address] [place] [phone] * HIV-1/2 Antigen and Antibodies, Fourth Generation, with Reflexes (08/26/2023 1:20 PM EDT) HIV AB/AG Nonreactive Nonreactive [facility] Comment:HIV-1 p24 Ag and/or HIV-1/HIV-2 Ab not detected.A test result that is nonreactive does not exclude thepossibility of exposure to or infection with HIV-1 and/orHIV-2. Nonreactive results in this assay for individualswith prior exposure to HIV-1 and/or HIV-2 may be due toantigen and antibody levels that are below the limit ofdetection of this assay.The [employer] HIV Ag/Ab Combo assay result andsupplemental assay results should be interpreted inconjunction with the patient's clinical presentation,history and other laboratory results. If the results areinconsistent with clinical evidence, additional testing issuggested to confirm the result. Blood Venous blood specimen / Unknown 08/26/2023 1:20 PM EDT 08/26/2023 3:59 PM EDT Jojo Gilmore MD LAB BLOOD ORDERABLES Final Resul t Performing Organization Address [facility] Co de Phone Number [facility] [address] [place] [phone] * Hm Colonoscopy (03/03/2022) Colonoscopy Normal Normal 03/03/2022 [facility] Unassigned Pcp HEALTH MAINTENANCE Edited Result - Final from Last 3 Months or Most Recently Relevant to Health Maintenance Insurance [facility] C3 Care Teams Electric Motor Controls Assembler Relationship Specialty Start Date End Date Jojo Gilmore MD [address] [place] [phone] PCP - General Family Medicine 12/19/18 Nelly Ma, DAGOBERTO [address] [place] [address] Registered Nurse Family Medicine 02/19/25 Breanne Mayo 02/19/25
--- OUTSIDE RECORDS SUMMARY | 2025-04-20 07:25 | XMS_ITS | Encounter Summary ---
Author Organization [employer] Address [address] [place] [address] Care Team Providers Care Director Of Hospitality Name Role Phone Jojo Jaramillo MD Primary Care Provider [phone] Nelly Ma RN Unavailable [phone] Breanne aMyo Unavailable Encounter Details Date Type Department Care Team (Late st Contact Info) Description 10/18/2023 Orders Only [facility] MEDICINE [address] [place], [place] [phone] Jojo Jaramillo MD 230 [place], [place] [phone] Social History Tobacco Use Types Packs/Day Years [...] Description 04/24/2025 1:00 PM EST Office Visit [facility] MEDICINE [address] [place] [address] Jojo Jaramillo MD 230 [place] [address] 05/07/2025 9:00 AM EST Office Visit [facility] OPTOMETRY [address] [place] [address] Robin, Jennifer, OD [address] [place] [address] documented as of this encounter Visit Diagnoses Not on filedocumented in this encounter Additional Health Concerns Assessment Noted Time PHQ-9 Depression Total Score: 5 10/12/19 24 10:50 AM EDT documented as of this encounter Care Teams Director Of Hospitality Relationship Specialty Start Date End Date Jojo Jaramillo MD [address] [place] [address] PCP - General Family Medicine 12/19/18 Nelly Ma RN [address] [place] [address] Registered Nurse Family Medicine 02/19/25 Breanne Mayo 02/19/25 documented as of this encounter
--- OUTSIDE RECORDS SUMMARY | 2025-04-20 07:25 | XMS_ITS | Encounter Summary ---
Author Organization [facility] [facility] Address [address] [facility] 7t [place] [address] Care Team Providers Care Bodily Injury Adjuster Name Role Phone Jojo Jaramillo MD Primary Care Provider [phone] Nelly Ma RN Unavailable [phone] Breanne Mayo Unavailable Encounter Details Date Type Department Care Team (Latest Contact Info) Description 07/21/2021 Abstract [facility] CON[facility] Dental, Provider, DDS Social History [...] Description 04/24/2025 1:00 PM EST Office Visit [facility] MEDICINE [address] [place] [address] Jojo Jaramillo MD [address] [place] [address] 05/07/2025 9:00 AM EST Office Visit [facility] OPTOMETRY [address] [place] [address] Jennifer Kelly, KATHI [address] [place] [address] documented as of this encounter Visit Diagnoses Not on filedocumented in this encounter Care Teams Bodily Injury Adjuster Relationship Specialty Start Date End Date Jojo Jaramillo MD [address] [place] [address] PCP - General Family Medicine 12/19/18 Nelly Ma, DAGOBERTO [address] [place] [address] MARIAA Jhaveri [address] Registered Nurse Family Medicine 02/19/25 Breanne Mayo 02/19/25 documented as of this encounter
--- OUTSIDE RECORDS SUMMARY | 2025-04-20 07:25 | XMS_ITS ---
Author Organization [employer] Address [address] [place] [address] Care Team Providers Care Operations Research Engineer Name Role Phone Jojo Jaramillo MD Primary Care Provider [phone] Nelly Ma RN Unavailable [phone] Breanne Mayo Unavailable CM Complex Status:Enrolled (Active) Start date:02/19/2025 Enrollment date:03/09/2025 Enrollment reason:ADT Feed Overview Missing MBHP- Pt admitted [place] [facility] [place] 02[place]13[facility]25 for schizoaffective d/o. Case Team Name Relationship Phone Nelly Ma RN(Responsible Staff) Registered Nurse [phone] Continued Care and Services Coordination
--- OUTSIDE RECORDS SUMMARY | 2025-04-20 07:25 | XMS_ITS | Encounter Summary ---
Author Organization [employer] Address [address] [place] [address] Care Team Providers Care Insurance Sales Supervisor Name Role Phone Jojo Jaramillo MD Primary Care Provider [phone] Nelly Ma RN Unavailable [phone] Breanne Mayo Unavailable Encounter Details Date Type Department Care Team (Late st Contact Info) Description 02/09/2025 Orders Only [facility] MEDICINE [address] [place], [place] [phone] Jojo Jaramillo MD [address] [place], [place] [phone] Sciatica of left side Social History Tobacco [...] 04/24/2025 1:00 PM EST Office Visit [facility] MEDICINE [address] [place] [address] Jojo Jaramillo MD [address] [place] [address] 05/07/2025 9:00 AM EST Office Visit [facility] OPTOMETRY [address] [place] [address] Robin, Jennifer, OD [address] [place] [address] documented as of this encounter Visit Diagnoses Diagnosis Sciatica of left side documented in this encounter Additional Health Concerns Assessment Noted Time PHQ-9 Depression Total Score: 16 025 12:11 PM EDT documented as of this encounter Care Teams Insurance Sales Supervisor Relationship Specialty Start Date End Date Jojo Jaramillo MD [address] [place] [address] PCP - General Family Medicine 12/19/18 Nelly Ma RN [address] [place] [address] Registered Nurse Family Medicine 02/19/25 Breanne Mayo 02/19/25 documented as of this encounter
--- OUTSIDE RECORDS SUMMARY | 2025-04-20 07:25 | XMS_ITS | Encounter Summary ---
Author Organization [employer] Address [address] [facility] 7t [place] [address] Care Team Providers Care Auto Body Customizer Name Role Phone Jojo Jaramillo MD Primary Care Provider [phone] Nelly Ma RN Unavailable Breanne Mayo Unavailable Reason for Referral * Consultation (Urgent) - Denied Specialty Diagnoses / Procedures Referred By Diamante de souza Referred To Contact Diagnoses Chronic low back pain with left-sided sciatica, unspecified back pain laterality Sciatica of left side Sprain of left ankle, unspecified ligament, subsequent encounter Anxiety Mood disorder (CMS/[facility]) Jojo Jaramillo MD [address] [place] [address] Phone: tel: fax: [address] [phone] Phone: tel: fax: Referral ID Status Reason Start Date Expiration Date V isits Requested Visits Authorized [id number] Denied Specialty Services Required 02/02/2025 02/02/2026 1 0 Encounter Details Date Type Department Care Team (Late st Contact Info) Description 02/02/2025 Orders Only [facility] MEDICINE [address] [place] [phone] Jojo Jaramillo MD [address] [place] [phone] Chronic low back pain with left-sided sciatica, [...] Description 04/24/2025 1:00 PM EST Office Visit [facility] MEDICINE [address] [place] [address] Jojo Jaramillo MD [address] [place], [place] 05/07/2025 9:00 AM EST Office Visit [facility] OPTOMETRY [address] [place] [address] Robin, Jennifer, OD [address] [place] [address] Scheduled Referrals Name Type Priority Associated Diagnoses [...] documented as of this encounter Care Teams Auto Body Customizer Relationship Specialty Start Date End Date Jojo Jaramillo MD [address] [place] [address] PCP - General Family Medicine 12/19/18 Nelly Ma, DAGOBERTO [address] [place] [address] Registered Nurse Family Medicine 02/19/25 Breanne Mayo 02/19/25 documented as of this encounter
--- OUTSIDE RECORDS SUMMARY | 2025-04-20 07:25 | XMS_ITS | Encounter Summary ---
Author Organization [employer] Address [address] [place] [address] Care Team Providers Care Salesperson Wigs Name Role Phone Jojo Jaramillo MD Primary Care Provider [phone] Nelly Ma RN Unavailable [phone] Breanne Mayo Unavailable Reason for Visit * Reason Comments Med Refill Encounter Details Date Type Department Care Team ([facility] st Contact Info) Description 12/29/2024 Refill [facility]S [address] [place], [place] [phone] Jojo Jaramillo MD [address] [place] [address] Arthralgia of both knees; Chronic midline low [...] Office Visit [facility] MEDICINE [address] [place] [address] Jojo Jaramillo MD [address] [place] [address] 05/07/2025 9:00 AM EST Office Visit [facility] OPTOMETRY [address] [place] [address] Robin, Jennifer, OD [address] [place] [address] documented as of this encounter Visit Diagnoses Diagnosis Arthralgia of both knees Chronic midline low back pain, unspecified whether sciatica present documented in this encounter Additional Health Concerns Assessment Noted Time PHQ-9 Depression Total Score: 16 025 1:34 PM EDT documented as of this encounter Care Teams Salesperson Wigs Relationship Specialty Start Date End Date Jojo Jaramillo MD [address] [place] [phone] PCP - General Family Medicine 12/19/18 Nelly Ma RN [address] [place] [phone] Registered Nurse Family Medicine 02/19/25 Breanne Mayo 02/19/25 documented as of this encounter
--- OUTSIDE RECORDS SUMMARY | 2025-04-20 07:25 | XMS_ITS | Encounter Summary ---
Author Organization [employer] Address [address] [facility] [address]t [place] [address] Care Team Providers Care Regional Extension Service Specialist Name Role Phone Jojo Jaramillo MD Primary Care Provider [phone] Nelly Ma RN Unavailable [phone] Breanne Mayo Unavailable Reason for Visit * Reason Onset Date Comments Created In Error 03/09/2024 Encounter Details Date Type Department Care Team ([facility] Contact Info) Description 03/09/2024 Telephone [facility] MEDICINE [address] [place], [place] [phone] Jojo Jaramillo MD [address] [place], [place] [phone] Created In Error Social History Tobacco Use [...] Description 04/24/2025 1:00 PM EST Office Visit [facility] MEDICINE [address] [place] [address] Jojo Jaramillo MD [address] [place] [address] 05/07/2025 9:00 AM EST Office Visit [facility] OPTOMETRY [address] [place] [address] Robin, Jennifer, OD [address] [place] [address] documented as of this encounter Visit Diagnoses Not on filedocumented in this encounter Additional Health Concerns Assessment Noted Time PHQ-9 Depression Total Score: 19 024 10:43 AM EDT documented as of this encounter Care Teams Regional Extension Service Specialist Relationship Specialty Start Date End Date Jojo Jaramillo MD [address] [place] [address] PCP - General Family Medicine 12/19/18 Nelly Ma RN [address] [place] [phone] Registered Nurse Family Medicine 02/19/25 Breanne Mayo 02/19/25 documented as of this encounter
--- OUTSIDE RECORDS SUMMARY | 2025-04-20 07:25 | XMS_ITS | Encounter Summary ---
Author Organization [employer] Address [address] [facility] 7t [place] [address] Care Team Providers Care Railroad Worker Name Role Phone Jojo Jaramillo MD Primary Care Provider [phone] Nelly Ma RN Unavailable [phone] Breanne Mayo Unavailable Reason for Visit * Reason Onset Date Comments Appointment Request 11/13/2024 Encounter Details Date Type Department Care Team ([facility] Contact Info) Description 11/13/2024 Telephone [facility] MED[facility] [address] [place], [place] [phone] Jojo Jaramillo MD [address] [place], [place] [phone] Appointment Request Social History Tobacco Use Types [...] requesting to be scheduled with Santa for FENCE [employer]TER visit documented in this encounter Plan of Treatment Upcoming Encounters Date Type Department Care Team (Late st Contact Info) Description 04/24/2025 1:00 PM EST Office Visit [facility] [address] [place] [address] Jojo Jaramillo MD [address] [place] [address] 05/07/2025 9:00 AM EST Office Visit [facility] OPTOMETRY [address] [place] [address] Jennifer Kelly OD [address] [place] [address] documented as of this encounter Visit Diagnoses Not on filedocumented in this encounter Additional Health Concerns Assessment Noted Time PHQ-9 Depression Total Score: 5 04/16/20 24 7:02 AM EST documented as of this encounter Care Teams Railroad Worker Relationship Specialty Start Date End Date Jojo Jaramillo MD [address] [place] [address] PCP - General Family Medicine 12/19/18 Nelly Ma RN [address] [place] [address] Registered Nurse Family Medicine 02/19/25 Breanne Mayo 02/19/25 documented as of this encounter
--- OUTSIDE RECORDS SUMMARY | 2025-04-20 07:25 | XMS_ITS | Encounter Summary ---
Author Organization [employer] Address [address] [facility] [address] 7t [place] [address] Care Team Providers Care Collection Supervisor Name Role Phone Jojo Jaramillo MD Primary Care Provider [phone] Nelly Ma RN Unavailable [phone] Breanne Mayo Unavailable Encounter Details Date Type Department Care Team (Late st Contact Info) Description 12/19/2024 Orders Only [facility] MEDICINE [address] [place], [place] [phone] Jojo Jaramillo MD [address] [place], [place] [phone] Pain and swelling of toe of left [...] 04/24/2025 1:00 PM EST Office Visit [facility] MED[facility]INE [address] [place] [address] Jojo Jaramillo MD [address] [place] [address] 05/07/2025 9:00 AM EST Office Visit [facility] OPTOMETRY [address] [place] [address] Robin, Jennifer, OD [address] [place] [address] documented as of this encounter Visit Diagnoses Diagnosis Pain and swelling of toe of left foot- Primary documented in this encounter Additional Health Concerns Assessment Noted Time PHQ-9 Depression Total Score: 16 025 1:34 PM EDT documented as of this encounter Care Teams Collection Supervisor Relationship Specialty Start Date End Date Jojo Jaramillo MD [address] [place] [address] PCP - General Family Medicine 12/19/18 Nelly Ma, RN [address] [place] [address] [place] [address] Registered Nurse Family Medicine 02/19/25 Breanne Mayo 02/19/25 documented as of this encounter
--- OUTSIDE RECORDS SUMMARY | 2025-04-20 07:25 | XMS_ITS | Encounter Summary ---
Author Organization [employer] Address 75 [facility] 7t [place] [address] Care Team Providers Care Junior Loan Processor Name Role Phone Jojo Jaramillo MD Primary Care Provider [phone] Nelly Ma RN Unavailable [phone] Breanne Mayo Unavailable Encounter Details Date Type Department Care Team (Late st Contact Info) Description 07/06/2022 Orders Only [facility] [address] [place], [place] [phone] Aline Echevarria LPN Social History Tobacco Use [...] Description 04/24/2025 1:00 PM EST Office Visit [facility] [address] [place] [address] Jojo Jaramillo MD [address] [place] [address] 05/07/2025 9:00 AM EST Office Visit [facility] OPTOMETRY [address] [place] [address] Jennifer Kelly OD [address] [place] [address] documented as of this encounter Procedures Procedure Name Priority Date/Time Associated Diagnosis Comments HEMATOXYLIN AND EOSIN STAIN Routine 07/20/2022 11:21 AM EST GLUCOSE, WHOLE BLOOD Routine 07/20/2022 10:57 AM EST documented in this encounter Results * Hematoxylin and Eosin Stain (07/20/2022 11:21 AM EST) 07/20/2022 11:2 1 AM EST 07/20/2022 12:09 PM EST [facility] LABS - 07/21/2022 4:07 PM EST ----- ------- Name: Tomy Betancourt Age/Sex: 46/M : 1975 Unit#: [id number] Attend Dr: Tremayne Pandey Re07/20/[address] [facility] Location: [facility] Disch: ----- ------- SPEC : [id number] RECD: 07/20/22120 STATUS: CAMILA BERTRAND NUM: [id number] ANGELINA: 07/20/22-[address] [facility] [address]: Tremayne Pandey ENTERED: 07/20/22-1225 SP [...] A1. Copies To: Jojo Jaramillo MD [address] [place], [place] [phone] Tremayne Pandey [address] [place] [address] [address] [place] [address] CONTINUED ON NEXT PAGE ----- ------- Name: Tomy Betancourt Age/Sex: 46/M : 1975 Unit#: [id number] Attend Dr: Tremayne Pandey Re07/20/[address] [facility] Location: [facility] Disch: ----- ------- SPEC : [id number] RECD: 07/20/22-1208 STATUS: CAMILA BERTRAND NUM: [id number] ANGELINA: 07/20/22-[address]: Tremayne Pandey ENTERED: 07/20/22-1225 SP TYPE: Surgical OTHR DR: Jojo Jaramillo MD ORDERED: HE Stain/3, Gross Micro L4, IHC, H. pylori ----- ------- Signed (signature on file) Chanel Moxee 07/21/22 1607 ----- ------- END OF REPORT [facility] External Provider LAB BLO OD ORDERABLES Final Result Performing Organization Address [facility] Co de Phone Number [facility] [address] [place], [place] [phone] * (ABNORMAL) GLUCOSE, WHOLE BLOOD (07/20/2022 10:57 AM EST) Glucose, Whole Blood 129(H) 60 - 115 mg/dL [facility] Comment:METER #: [id number] 07/20/2022 10:5 7 AM EST 07/20/2022 11:00 AM EST [facility] External Provider LAB BLO OD ORDERABLES Final Result Performing Organization Address [facility] Co de Phone Number [facility] [address] [place], [place] [phone] documented in this encounter Visit Diagnoses Not on filedocumented in this encounter Care Teams Junior Loan Processor Relationship Specialty Start Date End Date Jojo Jaramillo MD [address] [place] [address] PCP - General Family Medicine 12/19/18 Nelly Ma RN [address] [place] [address] Registered Nurse Family Medicine 02/19/25 Breanne Mayo 02/19/25 documented as of this encounter
--- OUTSIDE RECORDS SUMMARY | 2025-04-20 07:25 | XMS_ITS ---
Author Organization [facility] [employer] Address [address] [facility] [address] [place] [address] Care Team Providers Care Line Assembler Name Role Phone Jojo Jaramillo MD Primary Care Provider [phone] Nelly Ma RN Unavailable [phone] Breanne Mayo Unavailable [facility] Status:Enrolled (Active) Start date:02/19/2025 Enrollment date:03/09/2025 Enrollment reason:MBHP Overview Missing MBHP- Pt admitted to [facility] on 02/13/25 for schizoaffective d/o. Please outreach for enrollment.Please outreach facility. Case Team Name Relationship Phone Breanne Mayo(Responsible Staff) [phone] Continued Care and Services Coordination
--- OUTSIDE RECORDS SUMMARY | 2025-04-20 07:25 | XMS_ITS | Encounter Summary ---
Author Organization [employer] Address 75 [facility] 7t [place] [address] Care Team Providers Care Credit Review Manager Name Role Phone Jojo Jaramillo MD Primary Care Provider [phone] Nelly Ma RN Unavailable [phone] Breanne Mayo Unavailable Reason for Visit * Reason Comments Med Refill Encounter Details Date Type Department Care Team ([facility] st Contact Info) Description 03/13/2025 Refill [facility] MEDICINE [address] [place], [place] [phone] Jojo Jaramillo MD [address] [place], [place] [phone] Bilateral leg pain; Chronic low back pain, [...] Description 04/24/2025 1:00 PM EST Office Visit [facility] MED[facility] [address] [place] [address] Jojo Jaramillo MD [address] [place] [address] 05/07/2025 9:00 AM EST Office Visit [facility] OPTOMETRY [address] [place] [address] Robin, Jennifer, OD [address] [place] [address] documented as of this encounter Visit Diagnoses Diagnosis Bilateral leg pain Pain in soft tissues of limb Chronic low back pain, unspecified back pain laterality, unspecified whether sciatica present documented in this encounter Additional Health Concerns Assessment Noted Time PHQ-9 Depression Total Score: 16 025 1:25 PM EDT documented as of this encounter Care Teams Credit Review Manager Relationship Specialty Start Date End Date Jojo Jaramillo MD [address] [place] [address] PCP - General Family Medicine 12/19/18 Nelly Ma RN [address] [place] [address] Registered Nurse Family Medicine 02/19/25 Breanne Mayo 02/19/25 documented as of this encounter
--- OUTSIDE RECORDS SUMMARY | 2025-04-20 07:26 | XMS_ITS | Encounter Summary ---
Author Organization [employer] Address [address] [facility] [address] 7[address] [place] [address] Care Team Providers Care Heel Seam Rubber Name Role Phone Jojo Jaramillo MD Primary Care Provider [phone] Nelly Ma RN Unavailable [phone] Breanne Mayo Unavailable Encounter Details Date Type Department Care Team (Late st Contact Info) Description 03/09/2025 Orders Only [facility] MEDICINE [address] [place], [place] [phone] Jojo Jaramillo MD [address] [place], [place] [phone] Bilateral leg pain; Chronic low back pain, [...] Answer Date of Assessment Author Patient Health Questionnaire -2 Score 6 03/09/2025 1:25 PM EDT Nelly Ma RN * Little interest or pleasure in doing things Answer Date of Assessment Author Nearly every day 03/09/2025 1:25 PM EDT Nelly Ma RN * Feeling down, depressed, or hopeless Answer Date of Assessment Author Nearly every day 03/09/2025 1:25 PM EDT Nelly Ma, RN * Trouble falling or staying asleep, or sleeping too much Answer Date of Assessment Author Nearly every day 03/09/2025 1:25 PM EDT Nelly Ma, RN * Feeling tired or having little energy Answer Date of Assessment Author Nearly every day 03/09/2025 1:25 PM EDT Nelly Ma, RN * Poor appetite or overeating Answer Date of Assessment Author Several days 03/09/2025 1:25 PM EDT Nelly Ma, RN * Feeling bad about yourself - or that you are a failure or have let yourself or your family down Answer Date of Assessment Author Several days 03/09/2025 1:25 PM Nelly Coughlin RN * Trouble concentrating on things, such as reading the newspaper or watching television Answer Date of Assessment Author Several days 03/09/2025 1:25 PM Nelly Coughlin RN * Moving or speaking so slowly that other people could have noticed? Or the opposite - being so fidgety or restless that you have been moving around a lot more than usual. Answer Date of Assessment Author Several days 03/09/2025 1:25 PM Nelly Coughlin RN * Thoughts that you would be better off or hurting yourself in some way Answer Date of Assessment Author Not at all 03/09/2025 1:25 PM Nelly Coughlin RN * Patient Health Questionnaire-9 Score Answer Date of Assessment Author 16 03/09/2025 1:25 PM Nelly Coughlin RN * How difficult have these problems made it for you to do your work, take care of things at home, or get along with other people? Answer Date of Assessment Author Very difficult 03/09/2025 1:25 PM Nelly Coughlin RN * Over the last 2 weeks, how often have you been bothered by any of the following problems? Question Answer Date of Assessment Author Feeling nervous, anxious, or on edge 2 03/09/2025 1:27 PM Nelly Coughlin RN Not being able to stop or co ntrol worrying 2 03/09/2025 1:27 PM Nelly Coughlin RN Worrying too much about diff erent things 2 03/09/2025 1:27 PM Nelly Coughlin RN Trouble relaxing 2 03/09/2025 1:27 PM Nelly Mccarthy RN Being so restless that it is hard to sit still 0 03/09/2025 1:27 PM Nelly Coughlin RN Becoming easily annoyed or irritable 1 03/09/2025 1:27 PM Nelly Coughlin RN Feeling afraid as if somethi ng awful might happen 1 03/09/2025 1:27 PM EDT Nelly Ma RN DOTTIE-7 Total Score 10 03/09/2025 1:27 PM EDT Nelly Ma RN documented as of this encounter Plan of Treatment Upcoming Encounters Date Type Department Care Team (Late st Contact Info) Description 04/24/2025 1:00 PM EST Office Visit [facility] MEDICINE [address] [place] [address] Jojo Jaramillo MD [address] [place] [address] 05/07/2025 9:00 AM EST Office Visit [facility] OPTOMETRY [address] [place] [address] Jennifer Kelly, OD [address] [place] [address] documented as of this encounter Visit Diagnoses Diagnosis Bilateral leg pain Pain in soft tissues of limb Chronic low back pain, unspecified back pain laterality, unspecified whether sciatica present documented in this encounter Additional Health Concerns Assessment Noted Time PHQ-9 Depression Total Score: 16 025 1:25 PM EDT documented as of this encounter Care Teams Heel Seam Rubber Relationship Specialty Start Date End Date Jojo Jaramillo MD [address] [place] [address] PCP - General Family Medicine 12/19/18 Nelly Ma RN [address] [place] [address] Registered Nurse Family Medicine 02/19/25 Breanne Mayo 02/19/25 documented as of this encounter
--- OUTSIDE RECORDS SUMMARY | 2025-04-20 07:26 | XMS_ITS | Encounter Summary ---
Author Organization [employer] Address [address] [facility] 7t [place] [address] Care Team Providers Care Lean Manufacturing Specialist Name Role Phone Jojo Jaramillo MD Primary Care Provider [phone] Nelly Ma RN Unavailable [phone] Breanne Mayo Unavailable Encounter Details Date Type Department Care Team (Late Contact Info) Description 12/17/2022 Abstract [facility] MEDICINE [address] [place] [address] [phone] Jojo Jaramillo MD [address] [place] [address] [phone] Social History Tobacco Use Types Packs/Day Years [...] 1:00 PM EST Office Visit [facility] [address] [place] [phone] Jojo Jaramillo MD [address] [place], [place] [phone] 05/07/2025 9:00 AM EST Office Visit [facility] OPTOMETRY [address] [place], [place] [phone] Jennifer Kelly, OD [address] [place] [address] documented as of this encounter Procedures Procedure Name Priority Date/Time Associated Diagnosis Comments HM COLONOSCOPY Routine 03/03/2022 documented in this encounter Results * Hm Colonoscopy (03/03/2022) Colonoscopy Normal Normal 03/03/2022 [facility] Unassigned Pcp HEALTH MAINTENANCE Edited Result - Final documented in this encounter Visit Diagnoses Not on filedocumented in this encounter Additional Health Concerns Assessment Noted Time PHQ-9 Depression Total Score: 5 08/27/19 23 9:15 AM EDT documented as of this encounter Care Teams Lean Manufacturing Specialist Relationship Specialty Start Date End Date Jojo Jaramillo MD [address] [place] [address] PCP - General Family Medicine 12/19/18 Nelly Ma RN [address] [place] [address] Registered Nurse Family Medicine 02/19/25 Breanne Mayo 02/19/25 documented as of this encounter
--- OUTSIDE RECORDS SUMMARY | 2025-04-20 07:26 | XMS_ITS | Clinical Summary ---
Author Organization [facility] Address [address] [place] [address] Phone Care Team Providers Care Reference Test Clerk Name Role Phone Jojo Jaramillo MD Primary Care Provider [phone] Allergies No known active allergies Medications atorvastatin [...] a day. 270 each 3 02/08/2025 Active gabapentin (NEURONTIN) 300 mg capsule Take 1 capsule (300 mg total) by mouth 2 (two) times a day. 180 each 3 04/05/2025 Active Active Problems No known active problems Encounters Date Type Department Care Team Description 04/13/2025 Telephone Orthopedic Surgery [facility] 250 175 [facility] [address] [place] [address] Kenneth Cameron DPM 04/05/2025 1:30 PM EDT Office Visit Orthopedic Surgery [facility] [address] [phone] Kenneth Cameron DPM Left foot pain (Primary Dx); Controlled type 2 diabetes with neuropathy (CMS/HCC V24, CMS/HCC V28); Complex regional pain syndrome type 1 of left lower extremity; Contusion of left foot, sequela; Lumbosacral radiculopathy 03/22/2025 9:00 AM EDT Office Visit Orthopedic Surgery [facility] [address] [phone] Kenneth Cameron DPM Controlled type 2 diabetes with neuropathy (CMS/HCC V24, CMS/HCC V28) (Primary Dx); Non-pressure chronic ulcer of other part of left foot limited to breakdown of skin (CMS/HCC V24, CMS/HCC V28); Lumbosacral radiculopathy; Complex regional pain syndrome type 1 of left lower extremity; Contusion of left foot, sequela 02/08/2025 3:15 PM EDT Consult Orthopedic Surgery [facility] [address] [phone] Kenneth Cameron DPM Controlled type 2 diabetes with neuropathy (CMS/HCC V24, CMS/HCC V28) (Primary Dx); Non-pressure chronic ulcer of other part of left foot limited to breakdown of skin (CMS/HCC V24, CMS/HCC V28); Lumbosacral radiculopathy; Complex regional pain syndrome type 1 of left lower extremity; Contusion of left foot, initial encounter 01/30/2025 7:12 AM EDT - 01/30/2025 1:19 PM EDT Emergency [facility] [address] [place] [phone] Sciatica of left side (Primary Dx); Pain; Controlled type 2 diabetes mellitus without complication, unspecified whether shelter insulin use (CMS/HCC V24, CMS/HCC V28) Discharge Disposition: Home or Self Care from [...] 01/29/2025 11:13 PM EDT Plan of Treatment Health Maintenance Due Date Last Done Comments Colorectal Cancer Screening: Colonoscopy 1975 Diabetes: Annual Retina Eye Exam 12/10/1985 Pneumococcal Vaccine: Pediatrics (0 to 5 Years) and At-Risk Patients (6 to 49 Years) (2 of 2 - PCV) 10/21/2013 10/21/2012 Depression Screening 06/07/2024 Cholesterol Screening (Lipid Panel) 12/20/2024 Diabetes: Annual Urine Albumin-Creatinine Ratio (uACR) [...] or Tdap) 09/29/2027 09/28/2017, 10/21/2012, 09/21/2006 RSV Immunization Adult Patients (1 - 1-dose 75+ series) 12/10/2050 Hepatitis [...] Date/Time Associated Diagnosis Comments XR LUMBAR SPINE 4+ VIEWS Routine 04/05/2025 2:09 PM EDT Foot pain ECG ANNOTATED 01/31/2025 D-DIMER STAT 01/30/2025 10:55 [...] CULTURE BLOOD STAT 01/30/2025 7:33 AM EDT from Last 3 Months Results * XR Lumbar Spine 4+ Views (04/05/2025 2:09 PM EDT) Anatomical Region Laterality Modality Spine, L-spine Computed Radiogr aphy 04/05/2025 3:46 PM EDT Impressions 04/05/2025 3:48 PM EDT Mild spondylosis. Constipation. -------- FINAL REPORT -------- Dictated By: Noris Denis Dictated Date: 04/05/2025 15:46 ET Assigned Physician: Noris Denis Reviewed and Electronically Signed By: Noris Denis Signed Date: 04/05/2025 15:48 ET Workstation ID: [id number] Transcribed By: Self Edit Transcribed Date: 04/05/2025 15:46 ET Narrative 04/05/2025 3:48 PM EDT LUMBOSACRAL SPINE, 4 VIEWS INCLUDING OBLIQUES HISTORY: Foot pain. FINDINGS: There is normal alignment of the lumbosacral spine. No fractures are seen. There is mild endplate spurring at several levels. Mild disc space narrowing and endplate spurring at L3-4. There is facet hypertrophy in the lower lumbar spine. There is stool scattered in the colon. Procedure Note Noris Denis MD - 04/05/2025 LUMBOSACRAL SPINE, 4 VIEWS INCLUDING OBLIQUES HISTORY: Foot pain. FINDINGS: There is normal alignment of the lumbosacral spine. No fractures areseen. There is mild endplate spurring at several levels. Mild disc space narrowing and endplate spurring at L3-4. There is facet hypertrophy in the lower lumbar spine. There is stool scattered in the colon. IMPRESSION: Mild spondylosis. Constipation. -------- FINAL REPORT -------- Dictated By: Noris Denis Dictated Date: 04/05/2025 15:46 ET Assigned Physician: Noris Denis Reviewed and Electronically Signed By: Noris Denis Signed Date: 04/05/2025 15:48 ET Workstation ID: [id number] Transcribed By: Self Edit Transcribed Date: 04/05/2025 15:46 ET us Kenneth Cameron DPM IMG XR PROCEDURES Final Res ult * ECG-Annotated (01/31/2025) us Provider Onbase MD ECG ORDERABLES Final Result * (ABNORMAL) D-Dimer (Quantitative) (01/30/2025 10:55 AM EDT) D-Dimer, Quant (D-DU) 346(H) <=230 ng/mL DDU LAB COAGULATION METHOD 01/30/2025 11:45 AM EDT [facility] Blood Venous blood specimen / Unknown Venipuncture / Unknown 01/30/2025 10:55 AM EDT 01/30/2025 11:30 AM EDT Narrative [facility] - 01/30/2025 11:45 AM EDT D-Dimer <230 ng/mL (D-Dimer units) is the threshold for exclusion of DVT/PE. D-Dimer may be elevated in: Critically ill, severely infected, trauma patients, DIC, acute CVA, acute DC, unstable angina, AF, old age, , and smoking. D-Dimer may be decreased with: Initiation of heparin therapy and oral anticoagulants. us Phil HERNANDEZ LAB BLOOD ORDERABLES Final Result [facility] [address] [place] [address], [place] [phone] * XR Foot 3+ Views Left (01/30/2025 [...] Signed Date: 01/30/2025 10:36 ET Workstation ID: [id number] Transcribed By: Self Edit Transcribed Date: 01/30/2025 [...] Signed Date: 01/30/2025 10:36 ET Workstation ID: [id number] Transcribed By: Self Edit Transcribed Date: 01/30/2025 10:34 ET us Phil HERNANDEZ IMG XR PROCEDURES Final Res ult * Vascular US Duplex Lower Extremity Venous Left (01/30/2025 9:49 AM EDT) Anatomical Region Laterality Modality Vascular, Abdomen Ultrasound 01/30/2025 10:2 4 AM EDT Impressions 01/30/2025 10:25 AM EDT NO LEFT LOWER EXTREMITY DEEP VENOUS THROMBOSIS. -------- FINAL REPORT -------- Dictated By: VIKTORIA BAL Dictated Date: 01/30/2025 10:24 ET Assigned Physician: VIKTORIA BAL Reviewed and Electronically Signed By: VIKTORIA BAL Signed Date: 01/30/2025 10:25 ET Workstation ID: [id number] Transcribed By: Self Edit Transcribed Date: 01/30/2025 [...] Signed Date: 01/30/2025 10:25 ET Workstation ID: [id number] Transcribed By: Self Edit Transcribed Date: 01/30/2025 10:24 ET Phil HERNANDEZ CV VASCULAR PROCEDURES Ioana mai Result * ECG 12 lead (01/30/2025 9:14 AM EDT) Ventricular Rate ECG 78 BPM GEMUSE Atrial Rate 78 BPM GEMUSE P-R Interval 128 ms GEMUSE QRS Duration 96 ms GEMUSE Q-T Interval 392 ms GEMUSE QTc 446 ms GEMUSE P Wave [place] 56 degrees GEMUSE R [place] -3 degrees GEMUSE T [place] 33 degrees GEMUSE ECG Interpretation Normal sinus rhythm Nonspecific T wave abnormality Abnormal ECG No previous ECGs available Confirmed by MD Flood Christopher ([id number]) on 01/31/2025 8:16:57 AM GEMUSE 01/30/2025 9:14 AM EDT 01/31/2025 8:16 AM EDT Phil HERNANDEZ ECG ORDERABLES Final Resul t Performing Organization Address City/[facility] Co de Phone Number GEMUSE * Blood Culture, Peripheral Draw #1 (01/30/2025 7:45 AM EDT) Only the most recent of2 resultswithin the time period is included. Culture, Blood No growth at 5 days LAB MICROBIOLOGY METHOD 02/04/2025 9:01 AM EDT [facility] Blood Venous blood specimen / Unknown Venipuncture / Unknown 01/30/2025 7:45 AM EDT 01/30/2025 8:13 AM EDT Frederick Deutsch MD LAB MICROBIOLOGY - GENERAL ORDERABLES Final Result Performing Organization Address [facility] de Phone Number [facility] [address] [place] [address], [place] [phone] * Lactate, with reflex (01/30/2025 7:33 AM EDT) LACTIC ACID 1.9 0.4 - 2.0 mmol/L LAB CHEMISTRY METHOD 01/30/2025 8:29 AM EDT [facility] Blood Venous blood specimen / Unknown Venipuncture / Unknown 01/30/2025 7:33 AM EDT 01/30/2025 7:47 AM EDT Frederick Deutsch MD LAB BLOOD ORDERABLES Final Result Performing Organization Address City/[facility] Co de Phone Number [facility] [address] [place] [address], * (ABNORMAL) CBC auto differential (01/30/2025 7:33 AM EDT) [facility] Signature WBC 4.5(L) 4.8 - 10.8 K/mcL LAB HEMETOLOGY METHOD 01/30/2025 8:35 AM EDT [facility] RBC 4.60 4.50 - 5.50 M/mcL LAB HEMETOLOGY METHOD 01/30/2025 8:35 AM EDT [facility] Hemoglobin 14.0 13.5 - 17.5 g/dL LAB HEMETOLOGY METHOD 01/30/2025 8:35 AM EDT [facility] Hematocrit 40.5(L) 42.0 - 54.0 % LAB HEMETOLOGY METHOD 01/30/2025 8:35 AM EDT [facility] MCV 87.7 79.0 - 98.0 FL LAB HEMETOLOGY METHOD 01/30/2025 8:35 AM EDT [facility] MCH 30.3 27.0 - 32.0 pcg LAB HEMETOLOGY METHOD 01/30/2025 8:35 AM EDT [facility] MCHC 34.6 32.0 - 37.0 g/dL LAB HEMETOLOGY METHOD 01/30/2025 8:35 AM EDT [facility] RDW 13.6 11.0 - 15.0 % LAB HEMETOLOGY METHOD 01/30/2025 8:35 AM EDT [facility] Platelets 122(L) 130 - 400 K/mcL LAB HEMETOLOGY METHOD 01/30/2025 8:35 AM EDT [facility] Comment:reviewed by slide MPV 13.3(H) 7.0 - 11.0 FL LAB HEMETOLOGY METHOD 01/30/2025 8:35 AM EDT [facility] NRBC 0.0 <1.0 % LAB HEMETOLOGY METHOD 01/30/2025 8:35 AM EDT [facility] NRBC Absolute 0.00 <0.10 K/mcL LAB HEMETOLOGY METHOD 01/30/2025 8:35 AM EDT [facility] Neutrophils Relative 56.3 % LAB HEMETOLOGY METHOD 01/30/2025 8:35 AM EDT [facility] Lymphocytes Relative 32.6 % LAB HEMETOLOGY METHOD 01/30/2025 8:35 AM EDT [facility] Monocytes Relative 7.8 % LAB [facility]EMETOLOGY [facility] Eosinophils Relative 2.2 % LAB HEMETOLOGY METHOD 01/30/2025 8:35 AM EDT [facility] Basophils Relative 0.9 % LAB HEMETOLOGY METHOD 01/30/2025 8:35 AM T [facility] Immature Granulocytes Relative 0.2 % LAB HEMETOLOGY METHOD 01/30/2025 8:35 AM T [facility] Neutrophils Absolute 2.54 1.50 - 7.00 K/mcL LAB HEMETOLOGY METHOD 01/30/2025 8:35 AM T [facility] Lymphocytes Absolute 1.47 1.00 - 5.00 K/mcL LAB HEMETOLOGY METHOD 01/30/2025 8:35 AM EDT [facility] Monocytes Absolute 0.35 0.20 - 1.00 K/mcL LAB HEMETOLOGY METHOD 01/30/2025 8:35 AM EDT [facility] Eosinophils Absolute 0.10 0.00 - 0.50 K/mcL LAB HEMETOLOGY METHOD 01/30/2025 8:35 AM T [facility] Basophils Absolute 0.04 0.00 - 0.20 K/mcL LAB HEMETOLOGY METHOD 01/30/2025 8:35 AM [facility] Immature Granulocytes Absolute 0.01 0.00 - 0.03 K/mcL LAB HEMETOLOGY METHOD 01/30/2025 8:35 AM [facility] Blood Venous blood specimen / Unknown Venipuncture / Unknown 01/30/2025 7:33 AM EDT 01/30/2025 7:46 AM EDT Frederick Deutsch MD LAB BLOOD ORDERABLES Final Result [facility] [address] [place] [address], * (ABNORMAL) Basic metabolic panel (01/30/2025 7:33 AM EDT) Sodium 139 133 - 145 mmol/L LAB CHEMISTRY METHOD 01/30/2025 8:31 AM [facility] Potassium 3.5 3.5 - 5.5 mmol/L LAB CHEMISTRY METHOD 01/30/2025 8:31 AM [facility] Comment:Hemolysis present Chloride 106 96 - 110 mmol/L LAB CHEMISTRY METHOD 01/30/2025 8:31 AM [facility] CO2 26 21 - 32 mmol/L LAB CHEMISTRY METHOD 01/30/2025 8:31 AM [facility] Anion Gap 7 3 - 11 LAB CHEMISTRY METHOD 01/30/2025 8:31 AM [facility] Glucose 133(H) 70 - 100 mg/dL LAB CHEMISTRY METHOD 01/30/2025 8:31 AM [facility] BUN 18 5 - 25 mg/dL LAB CHEMISTRY METHOD 01/30/2025 8:31 AM [facility] Creatinine 0.74 0.70 - 1.30 mg/dL LAB CHEMISTRY METHOD 01/30/2025 8:31 AM [facility] eGFR 111 >=60 mL/min/1. 73m2 LAB CHEMISTRY METHOD 01/30/2025 8:31 AM EDT [facility] Comment:Calculation based on the Chronic Kidney Disease Epidemiology Collaboration (CKD-EPI) equation refit without adjustment for race. BUN/Creatinine Ratio 24.3 LAB CHEMISTRY METHOD 01/30/2025 8:31 AM EDT [facility] Calcium 10.4 8.5 - 10.5 mg/dL LAB CHEMISTRY METHOD 01/30/2025 8:31 AM EDT [facility] Blood Venous blood specimen / Unknown Venipuncture / Unknown 01/30/2025 7:33 AM EDT 01/30/2025 7:46 AM EDT us Frederick Deutsch MD LAB BLOOD ORDERABLES Final Result [facility] [address] [place] [address], from Last 3 Months Insurance MEDICAID - [place] Care Teams Reference Test Clerk Relationship Specialty Start Date End Date Jojo Jaramillo MD [address] [place] [phone] PCP - General Family Medicine 12/19/24
--- OUTSIDE RECORDS SUMMARY | 2025-04-20 07:26 | XMS_ITS | Encounter Summary ---
Author Organization [employer] Address [address] [facility] [address] [place] [address] Care Team Providers Care Side Door Worker Name Role Phone Jojo Jaramillo MD Primary Care Provider [phone] Nelly Ma RN Unavailable [phone] Breanne Mayo Unavailable Encounter Details Date Type Department Care Team (Late Contact Info) Description 12/18/2022 Abstract [facility] MEDICINE [address] [place] [address] [phone] Jojo Jaramillo MD [address] [place] [address] [phone] Social History Tobacco Use Types Packs/Day Years [...] [facility]INE [address] [place] [address] [phone] Jojo Jaramillo MD [address] [place], [place] [phone] 05/07/2025 9:00 AM EST Office Visit [facility] OPTOMETRY [address] [place], [place] [phone] Jennifer Kelly, KATHI [address] [place] [address] documented as of this encounter Visit Diagnoses Not on filedocumented in this encounter Additional Health Concerns Assessment Noted Time PHQ-9 Depression Total Score: 5 08/27/19 23 9:15 AM EDT documented as of this encounter Care Teams Side Door Worker Relationship Specialty Start Date End Date Jojo Jaramillo MD [address], [place] [phone] PCP - General Family Medicine 12/19/18 Nelly Ma RN [address] [place] [phone] Registered Nurse Family Medicine 02/19/25 Breanne Mayo 02/19/25 documented as of this encounter
--- OUTSIDE RECORDS SUMMARY | 2025-04-20 07:26 | XMS_ITS | Encounter Summary ---
Author Organization [facility] Address [address] [place] [address] Care Team Providers Care Labor Mediator Name Role Phone Jojo Jaramillo MD Primary Care Provider [phone] Nelly Ma RN Unavailable [phone] Breanne Mayo Unavailable Encounter Details Date Type Department Care Team ([facility] st Contact Info) Description 12/21/2024 Orders Only [facility] [address] [place], [place] [phone] Jojo Jaramillo MD [address] [place], [place] [phone] Social History Tobacco Use Types Packs/Day Years [...] Description 04/24/2025 1:00 PM EST Office Visit [facility] [address] [place] [address] Jojo Jaramillo MD [address] [place] [address] 05/07/2025 9:00 AM EST Office Visit [facility] OPTOMETRY [address] [place] [address] Robin, Jennifer, OD [address] [place] [address] documented as of this encounter Visit Diagnoses Not on filedocumented in this encounter Additional Health Concerns Assessment Noted Time PHQ-9 Depression Total Score: 16 025 1:34 PM EDT documented as of this encounter Care Teams Labor Mediator Relationship Specialty Start Date End Date Jojo Jaramillo MD [address] [place] [address] PCP - General Family Medicine 12/19/18 Nelly Ma RN [address] [place] [address] [place] [phone] Registered Nurse Family Medicine 02/19/25 Breanne Mayo 02/19/25 documented as of this encounter
[2025-04-20 07:32] VITALS: BP 118/67; PULSE 86; RESP 20; TEMP 37.1; O2SAT 96
[2025-04-20 07:33] LABS: MANUAL DIFF FLAG NO
--- NOTE | 2025-04-20 07:36 | MHC.EDTECH ---
Patient unable to provide urine sample at this time.
[2025-04-20 07:38] LABS: Hematocrit 36.2 % (42.0-52.0); Hemoglobin 12.2 g/dl (14.0-18.0); Imm Gran Abs Auto 0.00 X10*3/uL (0.00-0.03); Imm Gran Pct Auto 0.0 % (0.0-0.4); Lymphocytes Absolute Auto 0.8 X10*3/uL (1.2-4.9); Mean Corpuscular HGB Conc 33.7 g/dl (31.0-36.0); Mean Corpuscular Hemoglobin 29.8 pg (27.0-33.0); Mean Corpuscular Volume 88.3 fL (80.0-98.0); NRBC Abs Auto 0.000 X10*3/uL (0.0-0.012); NRBC Pct Auto 0.0 /100WBC (0.0-0.2); Platelet Count 153 X10*3/uL (160-400); Red Blood Count 4.10 X10*6/uL (4.60-5.80); White Blood Count 3.0 X10*3/uL (4.8-10.8)
[2025-04-20 07:51] LABS: Alanine Aminotransferase 38 U/L (0-40); Albumin Level 4.6 g/dL (3.5-5.0); Alkaline Phosphatase 55 U/L (39-117); Anion Gap 14 (12-20); Aspartate Amino Transferase 96 U/L (5-37); Blood Urea Nitrogen 33 mg/dL (9-16); Calcium 9.5 mg/dL (8.4-10.2); Carbon Dioxide 24 mmol/L (22-29); Chloride 110 mmol/L (96-108); Creatinine Clr Calc Pharmacy 87.3; Estimated Glomerular Filt Rate > 60; Potassium 4.1 mmol/L (3.3-5.1); Sodium 144 mmol/L (135-145); Total Protein 7.0 g/dL (6.5-8.0)
--- NOTE | 2025-04-20 08:05 | PC.NURSE ---
Pt arrives via EMS for paranoia, AH and increased depression. He is very withdrawn, slow speech, poor eye contact. He is given a walker as he ambulates with a cane. His Lt foot is swollen related to an old foot fracture he arrived with an ever wrap on it. +PP, limited ROM, weight bearing is tolerated, he reports chronic pain to the foot and is taking pain meds TID.
--- NOTE | 2025-04-20 10:02 | ECG_ITS ---
Test Reason : R/O PROLONGED QT Blood Pressure : */* mmHG Vent. Rate : 61 BPM Atrial Rate : 61 BPM P-R Int : 162 ms QRS Dur : 100 ms QT Int : 470 ms P-R-T Axes : 51 -6 31 degrees QTcB Int : 473 ms Normal sinus rhythm Normal ECG When compared with ECG of 12-Feb-2025 16:31, No significant change was found Referred By: Jose David Wiley Electronically Signed By: KATELYNN DANIELS MD
[2025-04-20 12:45] LABS: Appearance Urine Clear; Glucose Urine UA Negative (Negative); PH 6.0 (5.0-9.0); Specific Gravity - Urine >= 1.030 (1.005-1.025)
[2025-04-20 12:51] LABS: Cannabinoid Screen Urine Not Detected (Not Detect)
[2025-04-20 15:06] VITALS: BMI 24.5
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
[2025-04-20] MEDS: oxyCODONE HCl Immed Release 5 MG TABLET 10 MG PO (17:20)
[2025-04-20 19:44] LABS: Glucose, Whole Blood 122 mg/dL (60-115)
[2025-04-20 19:50] VITALS: BP 172/88; PULSE 78; TEMP 36.9; O2SAT 98
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
[2025-04-21] MEDS: oxyCODONE HCl Immed Release 5 MG TABLET 10 MG PO ×2 (04:59→17:55)
[2025-04-21 08:00] VITALS: BP 118/79; PULSE 95; RESP 18; TEMP 36.6; O2SAT 99
[2025-04-21 08:15] LABS: Glucose, Whole Blood 88 mg/dL (60-115)
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
[2025-04-21 15:21] LABS: Glucose, Whole Blood 141 mg/dL (60-115)
[2025-04-21 16:54] LABS: Glucose, Whole Blood 131 mg/dL (60-115)
[2025-04-21 19:47] VITALS: BP 161/88; PULSE 102; RESP 18; TEMP 35.8; O2SAT 97
[2025-04-21 21:39] LABS: Glucose, Whole Blood 173 mg/dL (60-115)
[2025-04-22] MEDS: oxyCODONE HCl Immed Release 5 MG TABLET 10 MG PO ×2 (05:28→17:57)
[2025-04-22 07:45] LABS: Glucose, Whole Blood 104 mg/dL (60-115)
[2025-04-22 08:00] VITALS: BP 140/82; PULSE 100; RESP 19; TEMP 36.2; O2SAT 97
[2025-04-22 08:20] VITALS: BP 140/82
[2025-04-22 12:06] LABS: Glucose, Whole Blood 197 mg/dL (60-115)
[2025-04-22 16:37] LABS: Glucose, Whole Blood 110 mg/dL (60-115)
[2025-04-22 19:50] VITALS: BP 140/83; PULSE 108; RESP 15; TEMP 36.9; O2SAT 96
[2025-04-22 20:06] LABS: Glucose, Whole Blood 183 mg/dL (60-115)
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
[2025-04-23] MEDS: oxyCODONE HCl Immed Release 5 MG TABLET 10 MG PO ×3 (06:08→20:03)
[2025-04-23 07:50] LABS: Glucose, Whole Blood 96 mg/dL (60-115)
[2025-04-23 08:00] VITALS: BP 129/75; PULSE 77; RESP 16; TEMP 36.7; O2SAT 100
[2025-04-23 08:45] VITALS: BP 129/75
--- NOTE | 2025-04-23 09:01 | PC.NURSE ---
Pt with pitting edema, heat, redness on L foot. +1-2 on foot, which becomes +1 on lower leg and ends before knee. Provider aware.
[2025-04-23 09:14] LABS: Folate 12.6 ng/mL (> or = 4.0); Vitamin B12 863 pg/mL (200-900)
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
[2025-04-23 12:12] LABS: Glucose, Whole Blood 139 mg/dL (60-115)
[2025-04-23 12:34] LABS: Glucose, Whole Blood 122 mg/dL (60-115)
[2025-04-23 16:47] LABS: Glucose, Whole Blood 137 mg/dL (60-115)
[2025-04-23 20:00] VITALS: BP 131/77; PULSE 80; RESP 18; TEMP 35.2; O2SAT 99
[2025-04-23 20:04] VITALS: BP 131/77
[2025-04-23 20:53] LABS: Glucose, Whole Blood 149 mg/dL (60-115)
[2025-04-24 08:06] LABS: Glucose, Whole Blood 95 mg/dL (60-115)
[2025-04-24 08:30] VITALS: BP 136/86; PULSE 77; RESP 18; TEMP 36.8; O2SAT 99
[2025-04-24] MEDS: oxyCODONE HCl Immed Release 5 MG TABLET 10 MG PO (08:49)
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
[2025-04-24 11:33] LABS: Glucose, Whole Blood 119 mg/dL (60-115)
[2025-04-24 17:01] LABS: Glucose, Whole Blood 146 mg/dL (60-115)
[2025-04-24 17:35] VITALS: BP 141/86
[2025-04-24] MEDS: oxyCODONE HCl Immed Release 15 MG TABLET PO ×2 (17:44→21:18)
[2025-04-24 19:45] LABS: Glucose, Whole Blood 159 mg/dL (60-115)
[2025-04-24 20:00] VITALS: BP 138/77; PULSE 82; RESP 18; TEMP 36.2; O2SAT 99
[2025-04-24 21:11] VITALS: BP 138/77
[2025-04-25] MEDS: oxyCODONE HCl Immed Release 15 MG TABLET PO ×3 (06:50→21:25)
[2025-04-25 08:01] LABS: Glucose, Whole Blood 139 mg/dL (60-115)
[2025-04-25 08:07] VITALS: BP 126/74; PULSE 99; TEMP 36.3; O2SAT 98
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
[2025-04-25] MEDS: Magnesium Hydrox/Alum Hydrox 30 ML ORAL.SUSP PO (14:17)
[2025-04-25 16:22] VITALS: BP 121/73
[2025-04-25 21:20] VITALS: BP 115/68; PULSE 88; TEMP 36.9; O2SAT 99
[2025-04-25 21:25] VITALS: BP 115/68
[2025-04-26] MEDS: oxyCODONE HCl Immed Release 15 MG TABLET PO ×3 (06:09→18:58)
[2025-04-26 07:52] LABS: Glucose, Whole Blood 114 mg/dL (60-115)
[2025-04-26 08:00] VITALS: BP 130/64; PULSE 86; TEMP 36.8; O2SAT 99
[2025-04-26 09:08] VITALS: BP 130/64
[2025-04-26 16:35] VITALS: BP 112/64
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
[2025-04-27] MEDS: oxyCODONE HCl Immed Release 15 MG TABLET PO ×3 (05:04→21:28)
[2025-04-27 07:49] LABS: Glucose, Whole Blood 147 mg/dL (60-115)
[2025-04-27 08:02] LABS: Creatinine Clr Calc Pharmacy 130.9; Estimated Glomerular Filt Rate > 60
[2025-04-27 08:28] VITALS: BP 119/58; PULSE 86; RESP 16; TEMP 36.6; O2SAT 96
[2025-04-27 16:40] VITALS: BP 122/74; PULSE 101
[2025-04-27 19:47] VITALS: BP 122/64; PULSE 75; TEMP 36.6; O2SAT 96
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
[2025-04-28] MEDS: oxyCODONE HCl Immed Release 15 MG TABLET PO ×3 (04:49→18:48)
[2025-04-28 07:47] LABS: Glucose, Whole Blood 136 mg/dL (60-115)
[2025-04-28 09:00] VITALS: BP 126/68; PULSE 94; RESP 20; TEMP 36.4; O2SAT 100
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
[2025-04-28 16:49] VITALS: BP 131/72; PULSE 74
[2025-04-28 20:00] VITALS: BP 128/78; PULSE 86; TEMP 37.2; O2SAT 98
[2025-04-28 21:03] VITALS: BP 128/78
[2025-04-29] MEDS: oxyCODONE HCl Immed Release 15 MG TABLET PO ×3 (06:28→21:59)
[2025-04-29 08:00] VITALS: BP 125/80; PULSE 104; RESP 16; TEMP 36.6; O2SAT 96
[2025-04-29 08:12] LABS: Glucose, Whole Blood 129 mg/dL (60-115)
[2025-04-29 08:56] VITALS: BP 125/80
[2025-04-29 16:47] VITALS: BP 128/71
[2025-04-30] MEDS: oxyCODONE HCl Immed Release 15 MG TABLET PO ×3 (03:47→17:37)
[2025-04-30 08:00] VITALS: BP 126/69; PULSE 86; TEMP 36.5; O2SAT 100
[2025-04-30] MEDS: Nicotine 7 MG PATCH.TD24 TRANSDERMA (15:32)
[2025-04-30 15:58] VITALS: BP 131/73
[2025-04-30 19:53] VITALS: BP 120/70; PULSE 89; RESP 18; TEMP 36.7; O2SAT 94
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
[2025-05-01] MEDS: oxyCODONE HCl Immed Release 15 MG TABLET PO ×3 (04:57→17:57)
[2025-05-01 07:48] VITALS: BP 109/64; PULSE 93; RESP 18; TEMP 36.1; O2SAT 96
[2025-05-01 08:50] VITALS: BP 109/64
[2025-05-01 17:27] VITALS: BP 125/72
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
[2025-05-01 20:00] VITALS: BP 122/68; PULSE 68; TEMP 36.3; O2SAT 98
[2025-05-01 21:38] VITALS: BP 122/68
[2025-05-02] MEDS: oxyCODONE HCl Immed Release 15 MG TABLET PO ×3 (05:15→17:09)
[2025-05-02 08:00] VITALS: BP 168/90; PULSE 80; RESP 18; TEMP 36.3; O2SAT 98
[2025-05-02 08:55] VITALS: BP 122/68
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
[2025-05-02 20:00] VITALS: BP 100/68; PULSE 95; RESP 16; TEMP 36.4; O2SAT 98
[2025-05-03] MEDS: oxyCODONE HCl Immed Release 15 MG TABLET PO ×3 (04:50→19:47)
[2025-05-03 08:02] VITALS: BP 100/57; PULSE 79; RESP 16; TEMP 36.4; O2SAT 96
[2025-05-03 08:48] VITALS: BP 109/57
[2025-05-03 16:54] VITALS: BP 107/61; PULSE 95
[2025-05-03] MEDS: Magnesium Hydrox/Alum Hydrox 30 ML ORAL.SUSP PO (16:55)
[2025-05-03 20:00] VITALS: BP 118/67; PULSE 96; RESP 15; TEMP 36.9; O2SAT 99
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
[2025-05-04] MEDS: oxyCODONE HCl Immed Release 15 MG TABLET PO ×3 (05:41→20:08)
[2025-05-04 08:00] VITALS: BP 99/57; PULSE 104; RESP 18; TEMP 2.4; TEMP 36.3; O2SAT 97
[2025-05-04 17:26] VITALS: BP 117/60
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
[2025-05-04] MEDS: Magnesium Hydrox/Alum Hydrox 30 ML ORAL.SUSP PO (19:14)
[2025-05-04 19:43] VITALS: BP 143/71; PULSE 88; RESP 18; TEMP 37; O2SAT 98
[2025-05-05] MEDS: oxyCODONE HCl Immed Release 15 MG TABLET PO ×3 (06:56→20:10)
[2025-05-05 08:16] LABS: Creatinine Clr Calc Pharmacy 118.4; Creatinine Clr Calc Pharmacy 125.2; Estimated Glomerular Filt Rate > 60
[2025-05-05 08:21] VITALS: BP 109/67; PULSE 91; TEMP 36.4; O2SAT 95
[2025-05-05] MEDS: Magnesium Hydrox/Alum Hydrox 30 ML ORAL.SUSP PO (13:43)
[2025-05-05 16:03] VITALS: BP 127/60
[2025-05-05 19:33] VITALS: BP 118/64; PULSE 93; RESP 18; TEMP 36.8; O2SAT 96
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
[2025-05-06 08:10] VITALS: BP 119/64; PULSE 72; TEMP 36.9; O2SAT 96
[2025-05-06] MEDS: oxyCODONE HCl Immed Release 15 MG TABLET PO ×3 (08:40→23:00)
[2025-05-06 16:36] VITALS: BP 112/71
[2025-05-06 19:45] VITALS: BP 102/61; PULSE 88; TEMP 36.4; O2SAT 97
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
[2025-05-07] MEDS: oxyCODONE HCl Immed Release 15 MG TABLET PO ×3 (07:13→20:44)
[2025-05-07 08:00] VITALS: BP 108/56; PULSE 85; RESP 17; TEMP 36.5; O2SAT 97
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
[2025-05-07 16:45] VITALS: BP 127/68
[2025-05-07 20:00] VITALS: BP 106/61; PULSE 98; RESP 18; TEMP 37.3; O2SAT 96
[2025-05-08 08:30] VITALS: BP 104/63; PULSE 96; RESP 18; TEMP 36.4; O2SAT 94
[2025-05-08] MEDS: Magnesium Hydrox/Alum Hydrox 30 ML ORAL.SUSP PO (13:41)
[2025-05-08] MEDS: oxyCODONE HCl Immed Release 15 MG TABLET PO ×2 (14:09→20:11)
[2025-05-08 17:30] VITALS: BP 116/58
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
[2025-05-08 19:43] VITALS: BP 100/59; PULSE 87; TEMP 37.2; O2SAT 96
[2025-05-09] MEDS: oxyCODONE HCl Immed Release 15 MG TABLET PO (07:14)
[2025-05-09 08:00] VITALS: BP 139/73; PULSE 65; RESP 15; TEMP 36.4; O2SAT 98
[2025-05-09 08:39] VITALS: BP 139/73
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
--- NOTE | 2025-05-15 11:54 | PC.NURSE ---
ON 05/08/25 AT 06:55 TW REMOVED A CLONAZEPAM 1MG AND OXYCODONE 15MG FROM THE P[facility]XIS. TW SCANNED THE ID BAND FOR PATIENT MATT GRIMM. TW THEN SCANNED BOTH OF THE ABOVE MEDICATIONS INTO THE PATIENT'S MAR. AT THIS POINT TW WAS DISTRACTED BY ANOTHER PATIENT WHO ALSO CAME TO THE MEDICATION ROOM DOOR AND TW FORGOT TO SAVE THE MEDICATIONS GIVEN TO MRTika GRIMM, THEREBY CAUSING THE DISCREPANCY. THIS NURSES NOTE IS INTENDED TO EXPLAIN AND CORRECT THE DISCREPANCY.
== END 2025-05-09 12:15 | disposition home or self-care (01) | DRG 751 ==
LOC: HO.ED 09:34 → HO.PM5 13:32
PROVIDERS: Admitting Provider Clinical Nurse Specialist Psychiatric/Mental Health, Adult; Emergency Provider Emergency Medicine; PCP Family Medicine; Visit Provider Psychiatry & Neurology Psychiatry
DX: F33.3 Major depressive disorder, recurrent, severe with psychotic symptoms (principal); L03.116 Cellulitis of left lower limb; R45.851 Suicidal ideations; E11.9 Type 2 diabetes mellitus without complications; I10 Essential (primary) hypertension; F43.10 Post-traumatic stress disorder, unspecified; F17.210 Nicotine dependence, cigarettes, uncomplicated; Z71.6 Tobacco abuse counseling; Z79.84 Long term (current) use of oral hypoglycemic drugs; Z79.899 Other long term (current) drug therapy
CPT/HCPCS: 36415; 80053; 80307; 81001; 82565; 82607; 82746; 82947; 85025; 93005; 99285; S9485

== ENCOUNTER → 2025-04-20 10:02 | Outpatient (BNV) | payer MEDICAID, SELFPAY | PROVIDERS: Admitting Provider Clinical Nurse Specialist Psychiatric/Mental Health, Adult; Emergency Provider Emergency Medicine; PCP Family Medicine; Visit Provider Internal Medicine Cardiovascular Disease | DX: Z13.6 Encounter for screening for cardiovascular disorders (principal) | CPT/HCPCS: 93010 ==

== ENCOUNTER → 2025-04-20 13:09 | Outpatient (BNV) | payer OTHER, SELFPAY | PROVIDERS: Admitting Provider Clinical Nurse Specialist Psychiatric/Mental Health, Adult; Emergency Provider Emergency Medicine; PCP Family Medicine; Visit Provider Psychiatry & Neurology Psychiatry | DX: F31.32 Bipolar disorder, current episode depressed, moderate (principal); I10 Essential (primary) hypertension; E11.9 Type 2 diabetes mellitus without complications; L03.116 Cellulitis of left lower limb | CPT/HCPCS: 99232 ==

== ENCOUNTER → 2025-04-20 13:09 | Outpatient (BNV) | payer MEDICAID, SELFPAY | PROVIDERS: Admitting Provider Clinical Nurse Specialist Psychiatric/Mental Health, Adult; Emergency Provider Emergency Medicine; PCP Family Medicine; Visit Provider Nurse Practitioner Family | DX: M79.672 Pain in left foot (principal); I10 Essential (primary) hypertension; L03.116 Cellulitis of left lower limb | CPT/HCPCS: 99221 ==